=== PATIENT | male | born 1940 | race Caucasian/White ===

== ENCOUNTER 2017-01-10 12:11 | Inpatient (IN) | payer OTHER, MEDICAID ==
[2017-01-10 12:11] VITALS: BMI 25.8
[2017-01-10] MEDS ORDERED: Digoxin 500 mcg/2ml (0.5 mg/2ml) Inj IVP STA (12:46)
[2017-01-10] MEDS ORDERED: Digoxin 500 mcg/2ml (0.5 mg/2ml) Inj ONE (13:05)
[2017-01-10 13:08] VITALS: PULSE 110
[2017-01-10 13:17] LABS: BASO # 0.1 K/uL (0.0-0.2); BASO % 0.6 % (0.0-2.0); EOS # 0.1 K/uL (0.0-0.7); EOS % 1.3 % (0.0-4.0); HEMATOCRIT 33.8 % (35.0-51.0); LYMPH # 1.4 K/uL (1.0-4.3); LYMPH % 15.4 % (20.0-40.0); MEAN CELL VOLUME 89.4 fL (80.0-94.0); MEAN CORPUSCULAR HEMOGLOBIN 29.4 pg (27.0-31.0); MEAN CORPUSCULAR HGB CONC 32.9 g/dL (33.0-37.0); MEAN PLATELET VOLUME 8.5 fL (7.2-11.7); MONO # 0.9 K/uL (0.0-0.8); MONO % 9.4 % (0.0-10.0); RED CELL DISTRIBUTION WIDTH 18.2 % (11.5-14.5); WHITE BLOOD COUNT 9.4 K/uL (4.8-10.8)
--- NOTE | 2017-01-10 13:20 | RAD ---
PROCEDURE: CHEST RADIOGRAPH, 1 VIEW HISTORY: weakness COMPARISON: 03/20/2016. FINDINGS: LUNGS: The lungs are well inflated and clear. PLEURA: No pneumothorax or pleural fluid seen. CARDIOVASCULAR: There is borderline cardiomegaly. Status post CABG. OSSEOUS STRUCTURES: No significant abnormalities. VISUALIZED UPPER ABDOMEN: Normal. OTHER FINDINGS: None. IMPRESSION: No active pulmonary disease.
[2017-01-10 13:37] LABS: ALKALINE PHOSPHATASE 41 U/L (38-126); ALT/SGPT 23 U/L (21-72); AST/SGOT 25 U/L (17-59); BILIRUBIN,TOTAL 0.9 mg/dL (0.2-1.3); BLOOD UREA NITROGEN 19 mg/dL (9-20); CALCIUM 8.9 mg/dl (8.6-10.4); CARBON DIOXIDE 29 mmol/L (22-30); CHLORIDE 96 mmol/L (98-107); GFR AFRICAN-AMERICAN 27; GLUCOSE,RANDOM 55 mg/dL (75-110); POTASSIUM 3.6 mmol/L (3.6-5.2); SODIUM 140 mmol/L (132-148); TOTAL PROTEIN 7.3 g/dL (6.3-8.3)
--- NOTE | 2017-01-10 14:06 | C.PDOC ---
History Of Present Illness 76 year old male sent to ED from Dr. Wise's office for evaluation of lightheadedness, and low blood pressure after hemodialysis today. Pt also complaints of rectal bleeding and hematuria for the past 1 month after his dialysis sessions. Pt states that he was not given Heparin in his last 2 dialysis sessions (friday & ) and states he did not notice any bleeding today. Otherwise, he denies chest pain, shortness of breath, abdominal pain, vomiting, diarrhea, or fever. Patient has history of Afib, and currently takes Aspirin 81mg daily. Patient was taken off Coumadin due to bleeding. PMHX- prostate CA, A fib, ESRD on HD, HTN, hyperlipidemia, DM, COPD, CHF Time Seen by Provider: 01/10/17 12:20 Chief Complaint (Nursing): Dizziness/Lightheaded History Per: Patient History/Exam Limitations: no limitations Current Symptoms Are (Timing): Still Present Associated Symptoms Preceding Syncopal Episode: Lightheadedness Fall Associated With With Symptoms: No Additional History Per: Patient Past Medical History Reviewed: Historical Data, Nursing Documentation, Vital Signs Vital Signs: Last Vital Signs Temp 98.6 F 01/11/17 23:35 Pulse 83 01/11/17 23:35 Resp 20 01/11/17 23:35 BP 135/50 L 01/11/17 23:35 Pulse Ox 97 01/11/17 23:35 - Medical History PMH: Anemia, Asthma, Atrial Fibrillation, Cardia Arrhythmia, CHF, COPD, Diabetes , HTN, Hypercholesterolemia, Malignancy (Prostate), End Stage Renal Disease, Chronic Kidney Disease Surgical History: CABG (QUADRUPLE BYPASS in 2006 at [facility] - [facility] Procedures BYPASS LEFT BRACHIAL ARTERY TO UPPER ARM VEIN, OPEN APPROACH (06/09/15) INSERTION OF INFUSION DEV INTO SUP VENA CAVA, PERC APPROACH (06/09/15) PERFORMANCE OF URINARY FILTRATION, MULTIPLE (01/23/16) PERFORMANCE OF URINARY FILTRATION, SINGLE (08/15/15) ULTRASONOGRAPHY OF HEART WITH AORTA, TRANSESOPHAGEAL (01/23/16) Family History: States: No Known Family Hx - Social History Hx Tobacco Use: No Hx Alcohol Use: No Hx Substance Use: No - Immunization History Hx Tetanus Toxoid Vaccination: No Hx Influenza Vaccination: Yes (2015) Hx Pneumococcal Vaccination: No Review Of Systems Except As Marked, All Systems Reviewed And Found Negative. Constitutional: Negative for: Fever, Chills Cardiovascular: Positive for: Light Headedness. Negative for: Chest Pain, Palpitations Respiratory: Negative for: Shortness of Breath Gastrointestinal: Positive for: Hematochezia. Negative for: Nausea, Vomiting, Abdominal Pain, Diarrhea, Constipation, Melena Genitourinary: Positive for: Hematuria. Negative for: Dysuria Musculoskeletal: Negative for: Back Pain Physical Exam - Physical Exam Appears: Well, Non-toxic, No Acute Distress Skin: Normal Color, Warm, Dry, No Rash Head: Normacephalic Eye(s): bilateral: Normal Inspection Oral Mucosa: Moist Cardiovascular: Rhythm Irregular (irregularly irregular, tachycardic) Respiratory: Normal Breath Sounds, No Rales, No Rhonchi, No Wheezing Gastrointestinal/Abdominal: Normal Exam, Bowel Sounds, Soft, No Tenderness Rectal: Rectal Tone (normal), Heme Positive (blood tinged stool), No Hemorrhoids , No Mass, No Tenderness, No Other (no fissure) Back: Normal Inspection, No CVA Tenderness Extremity: Normal ROM, No Tenderness, Capillary Refill (<2 sec all digits ), No Swelling, Other (AV fistula to left upper extremity with palpable thrill) Neurological/Psych: Oriented x3 ED Course And Treatment - Laboratory Results Result Diagrams: 01/11/17 16:50 01/11/17 07:16 ECG: Interpreted By Me, Viewed By Me ECG Rhythm: Atrial Fibrillation ECG Interpretation: Abnormal Interpretation Of ECG: Afib with RVR at 126bpm. Left axis deviation. No acute ST wave changes. Rate From EC (bpm) O2 Sat by Pulse Oximetry: 98 (on RA) Pulse Ox Interpretation: Normal - Radiology CXR: Interpreted by Me, Viewed By Me CXR Interpretation: Yes: No Acute Disease, Other (no effusion). No: Infiltrates Progress Note: Blood work, UA, CXR, EKG ordered and reviewed. Pt was given IV digoxin for A fib with RVR (BP borderline low). Reevaluation Time: 13:40 Reassessment Condition: Improved (Patient resting comfortably, in no current pain/distress, heart rate improved 90-110s.) - Physician Consult Information Physician Contacted: Karissa Alvarez Outcome Of Conversation: Discussed patient with Dr. Alvarez , agrees with admission but is currently away - being covered by Dr. Frye. Dr. Frye also away today, covered by Dr. Stewart. Dr. Stewart accepts patient to his service. Consults for patient's behavioral sciences department chair Dr. Potts and industrial technology education teacher Dr. Wise entered. Disposition - Disposition Disposition: HOSPITALIZED Disposition Time: 14:20 Condition: STABLE - Clinical Impression Clinical Impression: Atrial fibrillation with RVR, Rectal bleeding, Hypotension, ESRD (end stage renal disease) on dialysis - Scribe Statement The provider has reviewed the documentation as recorded by the Neetaibkade Callahan All medical record entries made by the Neetaibe were at my direction and personally dictated by me. I have reviewed the chart and agree that the record accurately reflects my personal performance of the history, physical exam, medical decision making, and the department course for this patient. I have also personally directed, reviewed, and agree with the discharge instructions and disposition. Decision To Admit - Pt Status Changed To: Hospital Disposition Of: Inpatient - Admit Certification Admit to Inpatient:: After my assessment, the patient will require hospitalization for at least two midnights. This is because of the severity of symptoms shown, intensity of services needed, and/or the medical risk in this patient being treated as an outpatient. - InPatient: Physician Admission Certification: I certify that this patient requires 2 or more midnights of care for the following reason:: see notes - . Bed Request Type: Telemetry Admitting Physician: Darwin Stewart Patient Diagnosis: ESRD (end stage renal disease) on dialysis, Rectal bleeding, Atrial fibrillation with RVR, Hypotension
--- NOTE | 2017-01-10 14:55 | CP.PCM.CON ---
History of Present Illness - History of Present Illness History of Present Illness: PMH: Anemia, Asthma, Atrial Fibrillation, Cardiac Arrhythmia- AFib, CHF, COPD, Diabetes, HTN, Hypercholesterolemia, Malignancy (Prostate), End Stage Renal Disease, on dialysis 2-years Denies: Kidney Stones, Peripheral Edema Surgical History: CABG (QUADRUPLE BYPASS in 2006 at [facility] AV fistula Seen in office today; SBP was 80/palp, patient was dizzy, and had rectal bleeding at dialysis earlier- sent to ED s/p dialysis this AM Review of Systems - Constitutional Constitutional: Fatigue, Weakness - EENT Eyes: Blurred Vision Ears: absent: As Per HPI, Decreased Hearing, Ear Discharge, Ear Pain, Tinnitus, Abnormal Hearing, Disequilibrium, Dizziness, Other Nose/Mouth/Throat: absent: As Per HPI, Epistaxis, Nasal Congestion, Nasal Discharge, Nasal Obstruction, Nasal Trauma, Nose Pain, Post Nasal Drip, Sinus Pain, Sinus Pressure, Bleeding Gums, Change in Voice, Dental Pain, Dry Mouth, Dysphagia, Halitosis, Hoarsness, Lip Swelling, Mouth Lesions, Mouth Pain, Odynophagia, Sore Throat, Throat Swelling, Tongue Swelling, Facial Pain, Neck Pain, Neck Mass, Other - Cardiovascular Cardiovascular: Lightheadedness, Rapid Heart Rate - Respiratory Respiratory: Dyspnea on Exertion - Gastrointestinal Gastrointestinal: Hematochezia - Genitourinary Genitourinary: Hematuria - Musculoskeletal Musculoskeletal: Arthralgias, Muscle Weakness - Integumentary Integumentary: absent: As Per HPI, Acne, Alopecia, Bleeding Lesions, Change in Hair, Change in Nails, Change in Pigmentation, Changing Lesions, Dry Skin, Erythema, Furuncle, Hirsutism, Lesions, New Lesions, Non-Healing Lesions, Photosensitivity, Pruritus, Rash, Skin Pain, Skin Ulcer, Sores, Striae, Swelling , Unusual Bruising, Wounds, Jaundice, Other - Neurological Neurological: Dizziness, Weakness - Hematologic/Lymphatic Hematologic: Easy Bleeding Past Patient History - Past Medical History & Family History Past Medical History?: Yes Past Family History: Reviewed and not pertinent - Past Social History Smoking Status: Former Smoker Chewing Tobacco Use: No Cigar Use: No Alcohol: None Drugs: Denies Home Situation {Lives}: With Family - CARDIAC Hx Atrial Fibrillation: Yes Hx Cardia Arrhythmia: Yes Hx Congestive Heart Failure: Yes Hx Hypercholesterolemia: Yes Hx Hypertension: Yes Hx Peripheral Edema: No - PULMONARY Hx Asthma: Yes Hx Chronic Obstructive Pulmonary Disease (COPD): Yes - NEUROLOGICAL Hx Neurological Disorder: Yes Hx Dizziness: Yes - HEENT Hx HEENT Problems: Yes Hx Cataracts: Yes (both eyes) - RENAL Hx Chronic Kidney Disease: Yes Hx Kidney Stones: No - ENDOCRINE/METABOLIC Hx Endocrine Disorders: Yes Hx Diabetes Mellitus Type 1: Yes - HEMATOLOGICAL/ONCOLOGICAL Hx Anemia: Yes - INTEGUMENTARY Hx Dermatological Problems: No - MUSCULOSKELETAL/RHEUMATOLOGICAL Hx Musculoskeletal Disorders: Yes Hx Falls: Yes - GASTROINTESTINAL Hx Gastrointestinal Disorders: No - GENITOURINARY/GYNECOLOGICAL Hx Genitourinary Disorders: Yes Hx Prostate Cancer: Yes Hx Prostate Problems: Yes Other/Comment: Prostate Sx 10 years ago robotic surgey 2005 - PSYCHIATRIC Hx Substance Use: No - SURGICAL HISTORY Hx Surgeries: Yes Hx Arteriovenous Shunt: Yes Hx Coronary Artery Bypass Graft: Yes (QUADRUPLE BYPASS in 2005 at [facility].) - ANESTHESIA Hx Anesthesia: Yes Hx Anesthesia Reactions: No Hx Malignant Hyperthermia: No Meds Allergies/Adverse Reactions: Allergies Allergy/AdvReac Type Severity Reaction Status Date / Time warfarin sodium Allergy Intermediate RASH Verified 01/10/17 12:17 [From Coumadin] Physical Exam - Constitutional Appears: Non-toxic, No Acute Distress, Chronically Ill - Head Exam Head Exam: ATRAUMATIC, NORMAL INSPECTION - Eye Exam Eye Exam: EOMI, Normal appearance - Neck Exam Neck exam: Positive for: Normal Inspection. Negative for: Tenderness - Respiratory Exam Respiratory Exam: Clear to Auscultation Bilateral, NORMAL BREATHING PATTERN - Cardiovascular Exam Cardiovascular Exam: Tachycardia, Irregular Rhythm, +S1 - GI/Abdominal Exam GI & Abdominal Exam: Soft. absent: Tenderness - Neurological Exam Neurological exam: Alert, CN II-XII Intact, Oriented x3 - Skin Skin Exam: Dry, Warm Results - Vital Signs Recent Vital Signs: Last Vital Signs Temp 97.9 F 01/10/17 12:17 Pulse 106 H 01/10/17 13:39 Resp 20 01/10/17 13:39 BP 119/64 01/10/17 13:39 Pulse Ox 98 01/10/17 14:24 - Labs Result Diagrams: 01/10/17 13:06 01/10/17 13:06 Labs: Laboratory Results - last 24 hr 01/10/17 01/10/17 01/10/17 12:27 13:06 13:06 WBC 9.4 RBC 3.78 L Hgb 11.1 L Hct 33.8 L MCV 89.4 MCH 29.4 MCHC 32.9 L RDW 18.2 H Plt Count 213 MPV 8.5 Neut % (Auto) 73.3 Lymph % (Auto) 15.4 L Kenton % (Auto) 9.4 Eos % (Auto) 1.3 Baso % (Auto) 0.6 Neut # 6.9 Lymph # 1.4 Kenton # 0.9 H Eos # 0.1 Baso # 0.1 PT 11.6 INR 1.0 APTT 31 Sodium Potassium Chloride Carbon Dioxide Anion Gap BUN Creatinine Est GFR ( Amer) Est GFR (Non-Af Amer) POC Glucose (mg/dL) 92 Random Glucose Calcium Total Bilirubin AST ALT Alkaline Phosphatase Total Creatine Kinase CK-MB (Mass) Troponin I Total Protein Albumin Globulin Albumin/Globulin Ratio Stool Occult Blood Blood Type Antibody Screen 01/10/17 01/10/17 01/10/17 13:06 13:06 13:06 WBC RBC Hgb Hct MCV MCH MCHC RDW Plt Count MPV Neut % (Auto) Lymph % (Auto) Kenton % (Auto) Eos % (Auto) Baso % (Auto) Neut # Lymph # Kenton # Eos # Baso # PT INR APTT Sodium 140 Potassium 3.6 Chloride 96 L Carbon Dioxide 29 Anion Gap 19 BUN 19 Creatinine 2.8 H Est GFR ( Amer) 27 Est GFR (Non-Af Amer) 22 POC Glucose (mg/dL) Random Glucose 55 L Calcium 8.9 Total Bilirubin 0.9 AST 25 ALT 23 Alkaline Phosphatase 41 Total Creatine Kinase 52 L CK-MB (Mass) 0.34 Troponin I < 0.0120 Total Protein 7.3 Albumin 3.7 Globulin 3.6 Albumin/Globulin Ratio 1.0 Stool Occult Blood Positive H Blood Type A POSITIVE Antibody Screen Negative Assessment & Plan (1) Rectal bleeding Status: Acute (2) Atrial fibrillation Status: Acute (3) End stage renal disease Status: Acute (4) Hematuria, gross Status: Acute (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
--- NOTE | 2017-01-10 15:56 | CP.PCM.PN ---
Subjective - Date & Time of Evaluation Date of Evaluation: 01/10/17 Time of Evaluation: 16:00 - Subjective Subjective: PROFESSOR/NURSE ANESTHETIST NOTES Pt seen in ED , awake alert, ox3, states had HD and went to Dr. shah office for f/u and bp low and felt dizzy and Dr. Shah sent ED for evaluation denies any chest pain, sob , abdominal pain Objective - Vital Signs/Intake and Output Vital Signs (last 24 hours): Temp Pulse Resp BP Pulse Ox 97.9 F 118 H 15 134/52 L 98 01/10/17 12:17 01/10/17 15:30 01/10/17 15:30 01/10/17 15:30 01/10/17 15:35 - Medications Medications: Current Medications Diltiazem HCl (Cardizem) 5 mg IVP ONCE ONE Stop: 01/10/17 16:01 Ferrous Sulfate (Feosol) 325 mg PO TID [facility] Glipizide (Glucotrol) 5 mg PO ACB [facility] Diltiazem HCl 125 mg/ Dextrose 125 mls @ 5 mls/hr IV .Q24H [facility]INA; 5 MG/HR PRN Reason: Protocol Insulin Aspart (Novolog) 0 unit SC ACHS [facility] PRN Reason: Protocol Metoprolol Succinate (Toprol Xl) 25 mg PO DAILY [facility] Rosuvastatin Calcium (Crestor) 5 mg PO HS CORINA - Labs Labs: PT 11.6 SECONDS (9.7-12.2) 01/10/17 13:06 INR 1.0 01/10/17 13:06 APTT 31 SECONDS (21-34) 01/10/17 13:06 - Constitutional Appears: Well, No Acute Distress - Head Exam Head Exam: ATRAUMATIC, NORMAL INSPECTION, NORMOCEPHALIC - Eye Exam Pupil Exam: NORMAL ACCOMODATION, PERRL - ENT Exam ENT Exam: Mucous Membranes Moist - Neck Exam Neck Exam: Full ROM, Normal Inspection - Respiratory Exam Respiratory Exam: Clear to Ausculation Bilateral, NORMAL BREATHING PATTERN - Cardiovascular Exam Cardiovascular Exam: Diastolic murmur (a fib on monitor non sustained ), Irregular Rhythm, +S1, +S2 Assessment and Plan (1) Atrial fibrillation Status: Acute - Assessment and Plan (Free Text) Assessment: A/P 76 yr old male with PMHX Anemia, Asthma, Atrial Fibrillation, Cardia Arrhythmia, CHF, COPD, Diabetes, HTN, Hypercholesterolemia, Malignancy (Prostate ), End Stage Renal Disease, on HD was sent from Dr. Shah office for evaluation of lightheadedness, and low blood pressure after hemodialysis today. Pt on afib with RVR and received digoxin x1 in ED on monitor a fib hr non sustained - 110- 140 Dr. Potts on cardiology consult , will give cardizem 5 mg ivx1 and start cardizem drip at 5 ml/hr with parameters Pt has hx of bleed in the past and today episode of rectal bleeding at HD center and occult blood positive , will hold off anticoagulation for now , further recommendation from Dr. Potts for anticoagulation RN will follow up with for further management of afib and anticoagulation
[2017-01-10] MEDS: (Novolog) Insulin Aspart, Recombinant 100 u/ml 10 ml vial SC SCH ×2 (17:09→21:36)
[2017-01-10 21:15] VITALS: RESP 20
[2017-01-10] MEDS ORDERED: Dextrose 50% SYRINGE Inj (50 ml) ONE (22:01)
[2017-01-10] MEDS ORDERED: Dextrose 50% SYRINGE Inj (50 ml) IV STA ×2 (22:35→22:41)
--- NOTE | 2017-01-10 23:10 | CP.PCM.CON ---
History of Present Illness - History of Present Illness History of Present Illness: 75 yo male with PMH of IDDM2, CAD s/p CABG, ESRD on hemodialysis was brought to ED after becoming dizzy at the end of HD. Patient denies any LOC, chest pain, or shortness of breath. Paient has rectal bleeding. In the ED pt was found to be in Rapid A. fib. He was started on IV Cardizem drip PMH- IDDM2, CAD s/p CABG, ESRD on hemodialysis M/W/F, a. fib HTN, hypercholesterolemia, COPD, anemia, hx of prostate cancer surgery- CABG fistula prostate surgery allergy coumadin social hx- former smoker, quit 12 yo, 1 ppd denies alcohol use, denies illicit drug use Review of Systems - Constitutional Constitutional: absent: Chills, Fever, Headache - Cardiovascular Cardiovascular: absent: Chest Pain, Diaphoresis, Leg Edema, Palpitations - Respiratory Respiratory: absent: Cough, Dyspnea, Wheezing - Gastrointestinal Gastrointestinal: absent: Abdominal Pain, Diarrhea, Nausea, Vomiting - Genitourinary Additional comments: decrease urine output 2/2 ESRD - Neurological Neurological: absent: Abnormal Gait, Dizziness, Headaches - Hematologic/Lymphatic Hematologic: absent: Easy Bleeding, Easy Bruising Physical Exam - Constitutional Appears: Well, No Acute Distress - Head Exam Head Exam: ATRAUMATIC, NORMOCEPHALIC - Eye Exam Eye Exam: Normal appearance - ENT Exam ENT Exam: Mucous Membranes Moist - Respiratory Exam Respiratory Exam: Clear to Auscultation Bilateral, NORMAL BREATHING PATTERN. absent: Rhonchi, Wheezes - Cardiovascular Exam Cardiovascular Exam: IREGULAR RHYTHM, +S1, +S2 - GI/Abdominal Exam GI & Abdominal Exam: Normal Bowel Sounds, Soft. absent: Distended, Tenderness - Extremities Exam Extremities exam: Negative for: pedal edema Additional comments: fistula right arm - Neurological Exam Neurological exam: Alert, Oriented x3 - Skin Skin Exam: Dry, Normal Color, Warm Past Patient History - Past Medical History & Family History Past Medical History?: Yes - Past Social History Smoking Status: Never Smoked - CARDIAC Hx Atrial Fibrillation: Yes Hx Cardia Arrhythmia: Yes Hx Congestive Heart Failure: Yes Hx Hypercholesterolemia: Yes Hx Hypertension: Yes - PULMONARY Hx Asthma: Yes Hx Chronic Obstructive Pulmonary Disease (COPD): Yes - NEUROLOGICAL Hx Neurological Disorder: Yes Hx Dizziness: Yes - HEENT Hx HEENT Problems: Yes Hx Cataracts: Yes (both eyes) - RENAL Hx Chronic Kidney Disease: Yes - ENDOCRINE/METABOLIC Hx Endocrine Disorders: Yes Hx Diabetes Mellitus Type 1: Yes - HEMATOLOGICAL/ONCOLOGICAL Hx Anemia: Yes - INTEGUMENTARY Hx Dermatological Problems: No - MUSCULOSKELETAL/RHEUMATOLOGICAL Hx Musculoskeletal Disorders: Yes Hx Falls: Yes - GASTROINTESTINAL Hx Gastrointestinal Disorders: No - GENITOURINARY/GYNECOLOGICAL Hx Genitourinary Disorders: Yes Hx Prostate Cancer: Yes Hx Prostate Problems: Yes Other/Comment: Prostate Sx 10 years ago robotic surgey 2005 - PSYCHIATRIC Hx Substance Use: No - SURGICAL HISTORY Hx Coronary Artery Bypass Graft: Yes (QUADRUPLE BYPASS in 2006 at [facility] - ANESTHESIA Hx Anesthesia: Yes Hx Anesthesia Reactions: No Hx Malignant Hyperthermia: No Has any member of the family had a problem w/ anesthesia?: No Meds Allergies/Adverse Reactions: Allergies Allergy/AdvReac Type Severity Reaction Status Date / Time warfarin sodium Allergy Intermediate RASH Verified 01/10/17 12:17 [From Coumadin] - Medications Medications: Current Medications Ferrous Sulfate (Feosol) 325 mg PO TID [facility] Last Admin: 01/10/17 19:35 Dose: 325 mg Diltiazem HCl 125 mg/ Dextrose 125 mls @ 5 mls/hr IV .Q24H CORINA; 5 MG/HR PRN Reason: Protocol Last Admin: 01/10/17 16:10 Dose: 5 mg/hr, 5 mls/hr Insulin Aspart (Novolog) 0 unit SC ACHS [facility] PRN Reason: Protocol Last Admin: 01/10/17 21:36 Dose: Not Given Metoprolol Succinate (Toprol Xl) 25 mg PO DAILY [facility] Pantoprazole Sodium (Protonix Inj) 40 mg IVP DAILY [facility] Rosuvastatin Calcium (Crestor) 5 mg PO HS [facility] Last Admin: 01/10/17 22:04 Dose: 5 mg Results - Vital Signs Recent Vital Signs: Last Vital Signs Temp 98.4 F 01/10/17 18:30 Pulse 87 01/10/17 18:30 Resp 20 01/10/17 18:30 BP 152/55 H 01/10/17 18:30 Pulse Ox 97 01/10/17 18:30 - Labs Result Diagrams: 01/10/17 13:06 01/10/17 13:06 Labs: Laboratory Results - last 24 hr 01/10/17 01/10/17 01/10/17 16:22 16:55 21:30 POC Glucose (mg/dL) 42 L 105 62 L 01/10/17 21:56 POC Glucose (mg/dL) 63 L Assessment & Plan - Assessment and Plan (Free Text) Assessment: 1. A Fib on Cardizem drip 2. Anemia. Rectal bleeding 3. .ESRD - hemodialysis M/W/F 4. DM - cont glipizide, insulin 5. hypercholesterolemia - cont rosuvastatin
[2017-01-11 07:27] LABS: BASO % 0.5 % (0.0-2.0); EOS # 0.1 K/uL (0.0-0.7); EOS % 1.6 % (0.0-4.0); HEMATOCRIT 30.2 % (35.0-51.0); LYMPH # 1.5 K/uL (1.0-4.3); LYMPH % 16.4 % (20.0-40.0); MEAN CELL VOLUME 89.5 fL (80.0-94.0); MEAN CORPUSCULAR HEMOGLOBIN 29.1 pg (27.0-31.0); MEAN CORPUSCULAR HGB CONC 32.5 g/dL (33.0-37.0); MEAN PLATELET VOLUME 8.8 fL (7.2-11.7); MONO # 1.1 K/uL (0.0-0.8); MONO % 11.7 % (0.0-10.0); RED CELL DISTRIBUTION WIDTH 17.9 % (11.5-14.5); WHITE BLOOD COUNT 9.2 K/uL (4.8-10.8)
[2017-01-11 07:53] LABS: ALB/GLOB RATIO 1.2 (1.0-2.1); BILIRUBIN,TOTAL 0.8 mg/dL (0.2-1.3); CALCIUM 7.6 mg/dl (8.6-10.4); POTASSIUM 3.6 mmol/L (3.6-5.2); TOTAL PROTEIN 5.7 g/dL (6.3-8.3)
[2017-01-11] MEDS: (Novolog) Insulin Aspart, Recombinant 100 u/ml 10 ml vial SC SCH ×4 (08:10→21:49)
--- NOTE | 2017-01-11 09:25 | CP.PCM.PN ---
Subjective - Date & Time of Evaluation Date of Evaluation: 01/11/17 Time of Evaluation: 09:30 - Subjective Subjective: hb down to 9.8 bp stable afebrile awake alert comfortable no dizziness now ROS No headache dizziness,chills fever no chest pain sob cough hemoptysis no abd pain nausea vomiting diarrhea.no bm no dysuria Objective - Vital Signs/Intake and Output Vital Signs (last 24 hours): Temp Pulse Resp BP Pulse Ox 97.9 F 71 20 136/53 L 100 01/11/17 08:13 01/11/17 08:13 01/11/17 08:13 01/11/17 08:13 01/11/17 08:13 - Medications Medications: Current Medications Ferrous Sulfate (Feosol) 325 mg PO TID [facility] Last Admin: 01/10/17 19:35 Dose: 325 mg Diltiazem HCl 125 mg/ Dextrose 125 mls @ 5 mls/hr IV .Q24H CORINA; 5 MG/HR PRN Reason: Protocol Insulin Aspart (Novolog) 0 unit SC ACHS [facility] PRN Reason: Protocol Last Admin: 01/11/17 08:10 Dose: Not Given Metoprolol Succinate (Toprol Xl) 25 mg PO DAILY [facility] Pantoprazole Sodium (Protonix Inj) 40 mg IVP DAILY [facility] Rosuvastatin Calcium (Crestor) 5 mg PO HS [facility] Last Admin: 01/10/17 22:04 Dose: 5 mg - Labs Labs: 01/11/17 07:16 01/11/17 07:16 PT 11.6 SECONDS (9.7-12.2) 01/10/17 13:06 INR 1.0 01/10/17 13:06 APTT 31 SECONDS (21-34) 01/10/17 13:06 - Constitutional Appears: No Acute Distress - Eye Exam Eye Exam: Normal appearance - ENT Exam ENT Exam: Mucous Membranes Moist - Respiratory Exam Respiratory Exam: Clear to Ausculation Bilateral - Cardiovascular Exam Cardiovascular Exam: REGULAR RHYTHM. absent: JVD - GI/Abdominal Exam GI & Abdominal Exam: Soft. absent: Distended, Tenderness - Extremities Exam Extremities Exam: absent: Calf Tenderness - Neurological Exam Neurological Exam: Alert - Psychiatric Exam Psychiatric exam: Normal Affect - Skin Skin Exam: Dry Assessment and Plan (1) Rectal bleeding Status: Acute (2) CHF (congestive heart failure) Status: Acute (3) ESRD (end stage renal disease) on dialysis Status: Acute (4) HTN (hypertension) Status: Chronic (5) Prostate CA Status: Chronic - Assessment and Plan (Free Text) Plan: await further evaluation next dialysis 01/13
[2017-01-11] MEDS ORDERED: Metoprolol Succinate 25 mg XL Tab PO SCH (10:00)
[2017-01-11] MEDS: Metoprolol Succinate 25 mg XL Tab PO SCH (10:03)
[2017-01-11 16:56] LABS: HEMATOCRIT 29.3 % (35.0-51.0); MEAN CELL VOLUME 89.7 fL (80.0-94.0); MEAN CORPUSCULAR HEMOGLOBIN 29.7 pg (27.0-31.0); MEAN CORPUSCULAR HGB CONC 33.1 g/dL (33.0-37.0); MEAN PLATELET VOLUME 8.8 fL (7.2-11.7); RED CELL DISTRIBUTION WIDTH 17.9 % (11.5-14.5); WHITE BLOOD COUNT 8.2 K/uL (4.8-10.8)
--- NOTE | 2017-01-11 21:44 | CP.PCM.PN ---
Subjective - Date & Time of Evaluation Date of Evaluation: 01/11/17 Time of Evaluation: 13:10 - Subjective Subjective: Patient seen and evaluated Denies chest pain and dyspnea No rectal bleeding this morning Objective - Vital Signs/Intake and Output Vital Signs (last 24 hours): Temp Pulse Resp BP Pulse Ox 98.9 F 56 L 20 140/52 L 97 01/11/17 15:00 01/11/17 18:00 01/11/17 15:00 01/11/17 15:00 01/11/17 15:00 - Medications Medications: Current Medications Diltiazem HCl (Cardizem) 30 mg PO Q8 [facility] Last Admin: 01/11/17 14:32 Dose: 30 mg Ferrous Sulfate (Feosol) 325 mg PO TID [facility] Last Admin: 01/11/17 17:20 Dose: 325 mg Insulin Aspart (Novolog) 0 unit SC ACHS [facility] PRN Reason: Protocol Last Admin: 01/11/17 17:20 Dose: 8 unit Metoprolol Succinate (Toprol Xl) 25 mg PO DAILY [facility] Last Admin: 01/11/17 10:03 Dose: 25 mg Pantoprazole Sodium (Protonix Inj) 40 mg IVP DAILY [facility] Last Admin: 01/11/17 10:01 Dose: 40 mg Rosuvastatin Calcium (Crestor) 5 mg PO HS [facility] Last Admin: 01/10/17 22:04 Dose: 5 mg - Labs Labs: 01/11/17 16:50 01/11/17 07:16 PT 11.6 SECONDS (9.7-12.2) 01/10/17 13:06 INR 1.0 01/10/17 13:06 APTT 31 SECONDS (21-34) 01/10/17 13:06 - Head Exam Head Exam: ATRAUMATIC, NORMAL INSPECTION - Eye Exam Eye Exam: EOMI, Normal appearance, PERRL Pupil Exam: NORMAL ACCOMODATION - ENT Exam ENT Exam: Mucous Membranes Moist - Neck Exam Neck Exam: Full ROM, Normal Inspection - Respiratory Exam Respiratory Exam: NORMAL BREATHING PATTERN - Cardiovascular Exam Cardiovascular Exam: Irregular Rhythm, +S1, +S2 - GI/Abdominal Exam GI & Abdominal Exam: Soft, Normal Bowel Sounds - Extremities Exam Extremities Exam: Full ROM - Neurological Exam Neurological Exam: Alert, CN II-XII Intact, Oriented x3 - Psychiatric Exam Psychiatric exam: Normal Mood - Skin Skin Exam: Warm Assessment and Plan - Assessment and Plan (Free Text) Assessment: 1. A Fib HR controlled. Now on Cardizem PO 2. Anemia. Rectal bleeding. GI consult pending 3. .ESRD - hemodialysis M/W/F 4. DM - cont glipizide, insulin 5. hypercholesterolemia - cont rosuvastatin
[2017-01-12 08:51] VITALS: BP 142/51; PULSE 63; TEMP 98.3; O2SAT 96
[2017-01-12] MEDS: (Novolog) Insulin Aspart, Recombinant 100 u/ml 10 ml vial SC SCH ×2 (09:01→13:21)
[2017-01-12] MEDS: Metoprolol Succinate 25 mg XL Tab PO SCH (09:01)
--- NOTE | 2017-01-12 09:22 | CARD ---
APPROVED REPORT EXAM: Two-dimensional and M-mode echocardiogram with Doppler and color Doppler. Other Information Quality : GoodRhythm : NSR INDICATION Dizziness and Vertigo Dyspnea Congestive Heart Failure COPD ESRD; HIGH TROPONIN Surgery/Intervention CABG: Date: 2005 RISK FACTORS Hypertension Diabetes M-Mode DIMENSIONS RVDd1.98 (2.1-3.2cm)Left Atrium (MM)4.35 (2.5-4.0cm) IVSd1.13 (0.7-1.1cm)Aortic Root3.39 (2.2-3.7cm) LVDd5.19 (4.0-5.6cm)Aortic Cusp Exc.1.51 (1.5-2.0cm) PWd1.11 (0.7-1.1cm)FS (%) 39 % LVDs3.16 (2.0-3.8cm)LVEF (%)69 (>50%) Mitral Valve MV E Anixlyjd216.7cm/sMV A Oknnivyc143.6cm/sE/A ratio1.2 TDI E/Lateral E'0.0E/Medial E'0.0 Tricuspid Valve TR Peak [id number]/sTR Peak Gr.[id number] LEFT VENTRICLE The left ventricle is normal size. There is moderate concentric left ventricular hypertrophy. Left ventricle systolic function is normal. The Ejection Fraction is 65-70%. There is normal LV segmental wall motion. No left ventricle thrombus noted on this study. There is no ventricular septal defect visualized. RIGHT VENTRICLE The right ventricle is normal size. The right ventricular systolic function is normal. ATRIA The left atrium is moderately dilated. The right atrium size is normal. The interatrial septum is intact with no evidence for an atrial septal defect. AORTIC VALVE The aortic valve is moderately calcified. No aortic regurgitation is present. There is no aortic valvular stenosis. There is no aortic valvular vegetation. MITRAL VALVE Mitral annular calcification is moderate. There is no mitral valve stenosis. Mitral regurgitation is mild. TRICUSPID VALVE The tricuspid valve is normal in structure. There is mild tricuspid regurgitation. There is no tricuspid valve prolapse or vegetation. There is no tricuspid valve stenosis. PULMONIC VALVE The pulmonary valve is normal in structure. GREAT VESSELS The aortic root is normal in size. <Conclusion> Left ventricle systolic function is normal. The Ejection Fraction is 65-70%. The right ventricular systolic function is normal. The left atrium is moderately dilated. The aortic valve is moderately calcified. Mitral annular calcification is moderate. Mitral regurgitation is mild. There is mild tricuspid regurgitation.
--- NOTE | 2017-01-12 09:26 | CARD ---
APPROVED REPORT EKG Measurement Heart [id number] <Conclusion> Atrial fibrillation with rapid ventricular response Nonspecific ST abnormality Abnormal ECG
--- NOTE | 2017-01-12 11:56 | CP.PCM.HP ---
History of Present Illness - History of Present Illness History of Present Illness: 76 y/o cymraes BRANDY WITH ESRD, DM, THN AND HE WAS IN DIALYSIS ON THE DAY OF ADMISSION AND HE WAS FOUND TO BE WEAK AND LETHARGIC AND HE WAS SENT TO ER, AND HE HAS GI BLEED, RAPID A.FIB, NO CHEST PAIN, OCC DYSPNEA, NO FEVER, NO COUGH Present on Admission - Present on Admission Any Indicators Present on Admission: Yes History of DVT/PE: No History of Uncontrolled Diabetes: Yes Urinary Catheter: No Decubitus Ulcer Present: No Review of Systems - Review of Systems Systems not reviewed;Unavailable: Unstable Vital Signs - Constitutional Constitutional: Anorexia, Chills - Cardiovascular Cardiovascular: Dyspnea, Palpitations, Pedal Edema, Rapid Heart Rate - Respiratory Respiratory: Dyspnea - Genitourinary Genitourinary: Urinary Frequency - Neurological Neurological: Weakness Past Patient History - Past Medical History & Family History Past Medical History?: Yes - Past Social History Smoking Status: Never Smoked - CARDIAC Hx Atrial Fibrillation: Yes Hx Cardia Arrhythmia: Yes Hx Congestive Heart Failure: Yes Hx Hypercholesterolemia: Yes Hx Hypertension: Yes - PULMONARY Hx Asthma: Yes Hx Chronic Obstructive Pulmonary Disease (COPD): Yes - NEUROLOGICAL Hx Neurological Disorder: Yes Hx Dizziness: Yes - HEENT Hx HEENT Problems: Yes Hx Cataracts: Yes (both eyes) - RENAL Hx Chronic Kidney Disease: Yes - ENDOCRINE/METABOLIC Hx Endocrine Disorders: Yes Hx Diabetes Mellitus Type 1: Yes - HEMATOLOGICAL/ONCOLOGICAL Hx Anemia: Yes - INTEGUMENTARY Hx Dermatological Problems: No - MUSCULOSKELETAL/RHEUMATOLOGICAL Hx Musculoskeletal Disorders: Yes Hx Falls: Yes - GASTROINTESTINAL Hx Gastrointestinal Disorders: No - GENITOURINARY/GYNECOLOGICAL Hx Genitourinary Disorders: Yes Hx Prostate Cancer: Yes Hx Prostate Problems: Yes Other/Comment: Prostate Sx 10 years ago robotic surgey 2006 - PSYCHIATRIC Hx Substance Use: No - SURGICAL HISTORY Hx Coronary Artery Bypass Graft: Yes (QUADRUPLE BYPASS in 2006 at [facility].) - ANESTHESIA Hx Anesthesia: Yes Hx Anesthesia Reactions: No Hx Malignant Hyperthermia: No Has any member of the family had a problem w/ anesthesia?: No Meds Allergies/Adverse Reactions: Allergies Allergy/AdvReac Type Severity Reaction Status Date / Time warfarin sodium Allergy Intermediate RASH Verified 01/10/17 12:17 [From Coumadin] Physical Exam - Constitutional Appears: No Acute Distress - Head Exam Head Exam: ATRAUMATIC, NORMAL INSPECTION, NORMOCEPHALIC - Eye Exam Eye Exam: EOMI, Normal appearance, PERRL Pupil Exam: NORMAL ACCOMODATION - ENT Exam ENT Exam: Mucous Membranes Moist, Normal Exam, Normal Oropharynx, TM's Normal Bilaterally - Neck Exam Neck exam: Positive for: Normal Inspection - Respiratory Exam Respiratory Exam: Clear to Auscultation Bilateral, Rales, NORMAL BREATHING PATTERN - Cardiovascular Exam Cardiovascular Exam: Gallop, +S1, +S2 - GI/Abdominal Exam GI & Abdominal Exam: Hyperactive Bowel Sounds, Soft - Back Exam Back exam: FULL ROM - Neurological Exam Neurological exam: Alert, CN II-XII Intact, Normal Gait, Oriented x3, Reflexes Normal - Psychiatric Exam Psychiatric exam: Flat Affect Results - Vital Signs Recent Vital Signs: Last Vital Signs Temp 98.3 F 01/12/17 08:50 Pulse 63 01/12/17 08:50 Resp 20 01/12/17 08:50 BP 142/51 L 01/12/17 08:50 Pulse Ox 96 01/12/17 08:50 - Labs Result Diagrams: 01/11/17 16:50 01/11/17 07:16 Labs: Laboratory Results - last 24 hr 01/11/17 01/11/17 01/11/17 11:54 16:35 16:50 WBC 8.2 RBC 3.27 L Hgb 9.7 L Hct 29.3 L MCV 89.7 MCH 29.7 MCHC 33.1 RDW 17.9 H Plt Count 182 MPV 8.8 POC Glucose (mg/dL) 359 H 360 H 01/11/17 01/12/17 01/12/17 21:15 02:03 06:19 WBC RBC Hgb Hct MCV MCH MCHC RDW Plt Count MPV POC Glucose (mg/dL) 313 H 252 H 224 H 01/12/17 11:23 WBC RBC Hgb Hct MCV MCH MCHC RDW Plt Count MPV POC Glucose (mg/dL) 255 H Assessment & Plan (1) Atrial fibrillation with RVR Assessment and Plan: ON CARDIZEM AND IS STABLE Status: Acute Priority: High (2) ESRD (end stage renal disease) on dialysis Status: Chronic Priority: Medium (3) Rectal bleeding Assessment and Plan: R/O DIVERTICULOSIS WITH BLEED Status: Acute Priority: High (4) Diabetes mellitus Status: Chronic Priority: Medium (5) HTN (hypertension) Status: Chronic
--- NOTE | 2017-01-12 12:00 | CP.PCM.CON ---
<Blaire Ramírez - Last Filed: 01/12/17 12:09> History of Present Illness - History of Present Illness History of Present Illness: GI Fellow PGY4 Consult Note This is a 76yM with a pmhx of HTN, ESRD on HD, prostate cancer s/p 36 radiation sessions, Hematuria on OAC, CAD s/p CABG, IDDM, HLD, Atrial Thrombus 01/25, Afib on aspirin. Pt sent from dialysis center after pt was hypotensive SBP in the 80s after 1.5L removed, dizzy and having complaints of rectal bleeding. Pt reports noticing blood on toilet paper for two weeks which has now slowed down with no rectal bleeding today. Pt denies any prior hx of melena or hematochezia and is not on OAC because of hx of hematuria and not GI bleeding. Pt reports EGD /Colonoscopy about 5yrs ago and was normal. Pt reports feeling better today with no abdominal pain, reflux, dizziness or chest pain. Pt has a hx of hematuria with Eliquis in the past as well as Coumadin which was started in 2015 after an atrial thrombus was found but had to be discontinued by 03/2016 because of hematuria. ROS: A 12pt ROS was obtained and was negative except as above PmHx: As stated in HPI PsHx: AVF, CABG, Prostate surgery SHx: denies tobacco, etoh, drugs FHx: denies colon cancer Past Patient History - Past Medical History & Family History Past Medical History?: Yes - Past Social History Smoking Status: Never Smoked - CARDIAC Hx Atrial Fibrillation: Yes Hx Cardia Arrhythmia: Yes Hx Congestive Heart Failure: Yes Hx Hypercholesterolemia: Yes Hx Hypertension: Yes - PULMONARY Hx Asthma: Yes Hx Chronic Obstructive Pulmonary Disease (COPD): Yes - NEUROLOGICAL Hx Neurological Disorder: Yes Hx Dizziness: Yes - HEENT Hx HEENT Problems: Yes Hx Cataracts: Yes (both eyes) - RENAL Hx Chronic Kidney Disease: Yes - ENDOCRINE/METABOLIC Hx Endocrine Disorders: Yes Hx Diabetes Mellitus Type 1: Yes - HEMATOLOGICAL/ONCOLOGICAL Hx Anemia: Yes - INTEGUMENTARY Hx Dermatological Problems: No - MUSCULOSKELETAL/RHEUMATOLOGICAL Hx Musculoskeletal Disorders: Yes Hx Falls: Yes - GASTROINTESTINAL Hx Gastrointestinal Disorders: No - GENITOURINARY/GYNECOLOGICAL Hx Genitourinary Disorders: Yes Hx Prostate Cancer: Yes Hx Prostate Problems: Yes Other/Comment: Prostate Sx 10 years ago robotic surgey 2005 - PSYCHIATRIC Hx Substance Use: No - SURGICAL HISTORY Hx Coronary Artery Bypass Graft: Yes (QUADRUPLE BYPASS in 2006 at [facility].) - ANESTHESIA Hx Anesthesia: Yes Hx Anesthesia Reactions: No Hx Malignant Hyperthermia: No Has any member of the family had a problem w/ anesthesia?: No Meds Allergies/Adverse Reactions: Allergies Allergy/AdvReac Type Severity Reaction Status Date / Time warfarin sodium Allergy Intermediate RASH Verified 01/10/17 12:17 [From Coumadin] - Medications Medications: Current Medications Diltiazem HCl (Cardizem) 30 mg PO Q8 [facility] Last Admin: 01/12/17 06:01 Dose: Not Given Ferrous Sulfate (Feosol) 325 mg PO TID [facility] Last Admin: 01/12/17 09:01 Dose: 325 mg Insulin Aspart (Novolog) 0 unit SC ACHS [facility] PRN Reason: Protocol Last Admin: 01/12/17 09:01 Dose: 3 unit Metoprolol Succinate (Toprol Xl) 25 mg PO DAILY [facility] Last Admin: 01/12/17 09:01 Dose: 25 mg Pantoprazole Sodium (Protonix Inj) 40 mg IVP DAILY [facility] Last Admin: 01/12/17 09:01 Dose: 40 mg Rosuvastatin Calcium (Crestor) 5 mg PO HS [facility] Last Admin: 01/11/17 21:49 Dose: 5 mg Physical Exam - Constitutional Appears: Well, Non-toxic, No Acute Distress - Head Exam Head Exam: NORMAL INSPECTION, NORMOCEPHALIC - Eye Exam Eye Exam: EOMI, Normal appearance, PERRL Pupil Exam: PERRL - ENT Exam ENT Exam: Mucous Membranes Moist - Neck Exam Neck exam: Positive for: Normal Inspection - Respiratory Exam Respiratory Exam: Clear to Auscultation Bilateral, Respiratory Distress - Cardiovascular Exam Cardiovascular Exam: RRR, +S1, +S2 - GI/Abdominal Exam GI & Abdominal Exam: Normal Bowel Sounds, Soft. absent: Distended, Firm, Guarding, Organomegaly, Tenderness - Rectal Exam Rectal Exam: absent: Hemorrhoids Additional comments: small amount of blood tinged brown stool - Extremities Exam Extremities exam: Positive for: full ROM, normal inspection - Back Exam Back exam: NORMAL INSPECTION - Neurological Exam Neurological exam: Alert, Oriented x3 - Psychiatric Exam Psychiatric exam: Normal Affect, Normal Mood - Skin Skin Exam: Dry, Intact, Normal Color, Warm Results - Vital Signs Recent Vital Signs: Last Vital Signs Temp 98.3 F 01/12/17 08:50 Pulse 63 01/12/17 08:50 Resp 20 01/12/17 08:50 BP 142/51 L 01/12/17 08:50 Pulse Ox 96 01/12/17 08:50 - Labs Result Diagrams: 01/11/17 16:50 01/11/17 07:16 Labs: Laboratory Results - last 24 hr 01/11/17 01/11/17 01/11/17 16:35 16:50 21:15 WBC 8.2 RBC 3.27 L Hgb 9.7 L Hct 29.3 L MCV 89.7 MCH 29.7 MCHC 33.1 RDW 17.9 H Plt Count 182 MPV 8.8 POC Glucose (mg/dL) 360 H 313 H 01/12/17 01/12/17 01/12/17 02:03 06:19 11:23 WBC RBC Hgb Hct MCV MCH MCHC RDW Plt Count MPV POC Glucose (mg/dL) 252 H 224 H 255 H Assessment & Plan - Assessment and Plan (Free Text) Assessment: This is a 76yM pw with dizziness, hypotension and complaints of rectal bleeding. 1. Rectal bleeding 2. Anemia 3. Afib with RVR now in NSR 4. Hx of Hematuria on OAC 5. Hx of Atrial thrombus 6. ESRD on HD 7. Hx of Prostate Cancer s/p radiation therapy Plan: -No active GI bleeding at this time, rectal exam with small amount of blood tinged brown stool -Hemoglobin stable at pt's baseline -Continue supportive care and monitor H/H -No prior hx of GI bleeding with OAC, had hematuria with OAC therapy in the past -No plan for emergent endoscopic evaluation at this time -With Hx of Prostate cancer and per pt received 36 radiation sessions, will need colonoscopy and will order CT A/P wo contrast to look for rectosigmoid wall thickening -Will schedule pt for EGD/Colonoscopy as an outpt after cardiac clearance and cystoscopy scheduled for January 28 <Arin Seaman MD - Last Filed: 01/12/17 13:08> Meds - Medications Medications: Current Medications Diltiazem HCl (Cardizem) 30 mg PO Q8 [facility] Last Admin: 01/12/17 06:01 Dose: Not Given Ferrous Sulfate (Feosol) 325 mg PO TID [facility] Last Admin: 01/12/17 09:01 Dose: 325 mg Insulin Aspart (Novolog) 0 unit SC ACHS [facility] PRN Reason: Protocol Last Admin: 01/12/17 09:01 Dose: 3 unit Metoprolol Succinate (Toprol Xl) 25 mg PO DAILY [facility] Last Admin: 01/12/17 09:01 Dose: 25 mg Pantoprazole Sodium (Protonix Inj) 40 mg IVP DAILY [facility] Last Admin: 01/12/17 09:01 Dose: 40 mg Rosuvastatin Calcium (Crestor) 5 mg PO HS [facility] Last Admin: 01/11/17 21:49 Dose: 5 mg Results - Vital Signs Recent Vital Signs: Last Vital Signs Temp 98.3 F 01/12/17 08:50 Pulse 63 01/12/17 08:50 Resp 20 01/12/17 08:50 BP 142/51 L 01/12/17 08:50 Pulse Ox 96 01/12/17 08:50 - Labs Result Diagrams: 01/11/17 16:50 01/11/17 07:16 Labs: Laboratory Results - last 24 hr 01/11/17 01/11/17 01/11/17 16:35 16:50 21:15 WBC 8.2 RBC 3.27 L Hgb 9.7 L Hct 29.3 L MCV 89.7 MCH 29.7 MCHC 33.1 RDW 17.9 H Plt Count 182 MPV 8.8 POC Glucose (mg/dL) 360 H 313 H 01/12/17 01/12/17 01/12/17 02:03 06:19 11:23 WBC RBC Hgb Hct MCV MCH MCHC RDW Plt Count MPV POC Glucose (mg/dL) 252 H 224 H 255 H Attending/Attestation - Attestation I have personally seen and examined this patient.: Yes I have fully participated in the care of the patient.: Yes I have reviewed all pertinent clinical information: Yes Notes (Text): 01/12/17 12:49 Patient seen at bedside with GI fellow on rounds. This is a 76 year old M admitted with dizziness, hypotension and complaints of rectal bleeding during HD. Rectal exam at bedside with slight amount of rectal blood in rectal vault. Denies change in bowel habits. has history of prostate cancer s/p robotic surgery in 2005 with 39 sessions of radiation. Colonoscopy 5 years ago was normal. Admitted with RVR A fib on cardiazem drip now in sinus rhythm. Hb stable currently. Will benefit from repeat colonoscopy as outpatient once cardiac issues have resolved and has cardiac clearance for anesthesia. Scheduled for cystoscopy on 01/28 due to persistent hematuria. Continue PPI in am daily and will get CTAP prior to discharge. Will follow with GI as outpatient for EGD/colonoscopy. Diet as tolerated.
--- NOTE | 2017-01-12 12:05 | CT ---
PROCEDURE: CT Abdomen and Pelvis without intravenous contrast HISTORY: rectal bleeding COMPARISON: And pelvis CT without contrast 01/25/2016. TECHNIQUE: Helical CT of the abdomen pelvis was performed without oral or intravenous contrast administered. Contrast Dose: None Radiation dose: Total exam DLP = 313 mGy-cm. This CT exam was performed using one or more of the following dose reduction techniques: Automated exposure control, adjustment of the mA and/or kV according to patient size, and/or use of iterative reconstruction technique. FINDINGS: LOWER THORAX: Mild COPD and bilateral basilar dependent atelectasis are identified. Cardiomegaly is again evident. LIVER: Unremarkable. No gross lesion or ductal dilatation. GALLBLADDER AND BILE DUCTS: Gallbladder is mildly distended with cholelithiasis again appreciated. PANCREAS: Unremarkable. No gross lesion or ductal dilatation. SPLEEN: Unremarkable. ADRENALS: Unremarkable. No mass. KIDNEYS AND URETERS: A punctate intrarenal calculus is seen at the midpole left kidney. No obstructive uropathy seen the left side. At the right side, hydroureteronephrosis has increased with gross dilatation of the right ureter identified up to 2.5 cm greatest diameter. The distal left ureter is also dilated up to 1.5 cm greatest dimension. Urinary bladder is only minimally distended. No radiodense urolithiasis is identified either distal ureter or ureterovesical junction region bilaterally. Prostate gland only appears mildly enlarged consider possible distal bilateral ureteral strictures or also urinary bladder mass. It is poorly characterized given lack of contrast but appears thickened more so on the right than left sides. VASCULATURE: Status post inferior vena cava filter deployment again evident at the infrarenal IVC. Nonaneurysmal atherosclerotic aorta again noted. BOWEL: Unremarkable. No obstruction. No gross mural thickening. APPENDIX: Unremarkable. Normal appendix. PERITONEUM: The right lateral ventral abdominal hernia is again identified measuring 2.7 cm at the neck with increase perineal fat contained within the hernia at the abdominal wall but no bowel. A small fat containing left inguinal hernia appears stable. LYMPH NODES: Unremarkable. No enlarged lymph nodes. BLADDER: Discussed in real in ureter section above. REPRODUCTIVE: Enlarged prostate gland. BONES: No acute fracture. OTHER FINDINGS: None. IMPRESSION: 1. Interval worsening of right hydro ureteral nephrosis without obstructing intra intraureteral calculus identified in either ureter. The left ureter is also quite dilated distally but not proximally with the left kidney E nonobstructive appearing. Clinically correlate for possible urinary bladder masses, distal bilateral ureteral strictures or, less likely, lucent calculi bilaterally. 2. Increased right lateral ventral abdominal hernia containing only mesenteric fat. 3. Cholelithiasis.
--- NOTE | 2017-01-12 22:57 | CP.PCM.DIS ---
Provider - Provider Date of Admission: 01/10/17 14:20 Attending physician: Darwin Stewart MD Diagnosis - Discharge Diagnosis (1) Atrial fibrillation with RVR Status: Acute Priority: High (2) ESRD (end stage renal disease) on dialysis Status: Chronic Priority: Medium (3) Rectal bleeding Status: Acute Priority: High (4) Diabetes mellitus Status: Chronic Priority: Medium (5) HTN (hypertension) Status: Chronic Hospital Course - Lab Results Lab Results: Most Recent Lab Values WBC 8.2 K/uL (4.8-10.8) 01/11/17 16:50 RBC 3.27 Mil/uL (4.40-5.90) L 01/11/17 16:50 Hgb 9.7 g/dL (12.0-18.0) L 01/11/17 16:50 Hct 29.3 % (35.0-51.0) L 01/11/17 16:50 MCV 89.7 fL (80.0-94.0) 01/11/17 16:50 MCH 29.7 pg (27.0-31.0) 01/11/17 16:50 MCHC 33.1 g/dL (33.0-37.0) 01/11/17 16:50 RDW 17.9 % (11.5-14.5) H 01/11/17 16:50 Plt Count 182 K/uL (130-400) 01/11/17 16:50 MPV 8.8 fL (7.2-11.7) 01/11/17 16:50 Neut % (Auto) 69.8 % (50.0-75.0) 01/11/17 07:16 Lymph % (Auto) 16.4 % (20.0-40.0) L 01/11/17 07:16 [place] % (Auto) 11.7 % (0.0-10.0) H 01/11/17 07:16 Eos % (Auto) 1.6 % (0.0-4.0) 01/11/17 07:16 Baso % (Auto) 0.5 % (0.0-2.0) 01/11/17 07:16 Neut # 6.4 K/uL (1.8-7.0) 01/11/17 07:16 Lymph # 1.5 K/uL (1.0-4.3) 01/11/17 07:16 [place] # 1.1 K/uL (0.0-0.8) H 01/11/17 07:16 Eos # 0.1 K/uL (0.0-0.7) 01/11/17 07:16 Baso # 0.0 K/uL (0.0-0.2) 01/11/17 07:16 PT 11.6 SECONDS (9.7-12.2) 01/10/17 13:06 INR 1.0 01/10/17 13:06 APTT 31 SECONDS (21-34) 01/10/17 13:06 Sodium 133 mmol/L (132-148) 01/11/17 07:16 Potassium 3.6 mmol/L (3.6-5.2) 01/11/17 07:16 Chloride 97 mmol/L (98-107) L 01/11/17 07:16 Carbon Dioxide 24 mmol/L (22-30) 01/11/17 07:16 Anion Gap 16 (10-20) 01/11/17 07:16 BUN 37 mg/dL (9-20) H 01/11/17 07:16 Creatinine 4.1 MG/DL (0.8-1.5) H 01/11/17 07:16 Est GFR ( Amer) 17 01/11/17 07:16 Est GFR (Non-Af Amer) 14 01/11/17 07:16 POC Glucose (mg/dL) 255 mg/dL (65-110) H 01/12/17 11:23 Random Glucose 57 mg/dL (75-110) L 01/11/17 07:16 Calcium 7.6 mg/dl (8.6-10.4) L 01/11/17 07:16 Total Bilirubin 0.8 mg/dL (0.2-1.3) 01/11/17 07:16 AST 24 U/L (17-59) 01/11/17 07:16 ALT 21 U/L (21-72) 01/11/17 07:16 Alkaline Phosphatase 32 U/L (38-126) L D 01/11/17 07:16 Total Creatine Kinase 51 U/L (55-170) L 01/11/17 07:16 CK-MB (Mass) 1.11 ng/mL (0.0-3.38) 01/11/17 07:16 Troponin I < 0.0120 ng/mL (0.00-0.120) 01/10/17 13:06 Troponin I, Quant 0.0390 ng/mL (0.00-0.120) 01/11/17 07:16 Total Protein 5.7 g/dL (6.3-8.3) L 01/11/17 07:16 Albumin 3.1 g/dL (3.5-5.0) L 01/11/17 07:16 Globulin 2.5 gm/dL (2.2-3.9) 01/11/17 07:16 Albumin/Globulin Ratio 1.2 (1.0-2.1) 01/11/17 07:16 Stool Occult Blood Positive (NEGATIVE) H 01/10/17 13:06 Blood Type A POSITIVE 01/10/17 13:06 Antibody Screen Negative 01/10/17 13:06 - Hospital Course Hospital Course: 76 y/o with a.fib, prostate ca, and he was admitted with GI Bleed, A.FIBRILLATION Discharge Exam - Head Exam Head Exam: NORMAL INSPECTION, NORMOCEPHALIC - Eye Exam Eye Exam: EOMI, Normal appearance, PERRL Pupil Exam: NORMAL ACCOMODATION - ENT Exam ENT Exam: Mucous Membranes Moist, Normal Exam, Normal Oropharynx, TM's Normal Bilaterally - Neck Exam Neck exam: Normal Inspection - Respiratory Exam Respiratory Exam: Clear to PA & Lateral, NORMAL BREATHING PATTERN - Cardiovascular Exam Cardiovascular Exam: REGULAR RHYTHM, +S1, +S2 - GI/Abdominal Exam GI & Abdominal Exam: Normal Bowel Sounds, Unremarkable - Rectal Exam Rectal Exam: NORMAL INSPECTION - Neurological Exam Neurological exam: Alert, CN II-XII Intact, Normal Gait, Oriented x3, Reflexes Normal - Psychiatric Exam Psychiatric exam: Normal Mood - Skin Skin Exam: Intact Discharge Plan - Follow Up Plan Condition: STABLE Disposition: HOME/ ROUTINE Instructions: Metoprolol (By mouth), Diltiazem (By mouth), Carvedilol (By mouth ), Pantoprazole (By mouth), Atrial Fibrillation (DC), Rectal Bleeding (DC), Acute Hematuria (DC), End Stage Kidney Disease (DC) Additional Instructions: discharge home follow up with in 1 week also follow up with Dr. Seaman (GI) for testing. If symptoms return or worsen please return to ED Referrals: Jonathan Potts MD [Staff Provider] - Jurgen HURST,MD Arin [Medical Doctor] - Joe Wise MD [Staff Provider] -
== END 2017-01-12 14:49 | disposition home or self-care (01) | DRG 308 ==
LOC: C.ER 12:11 → C.9E 14:20 → C.6T 17:42
PROVIDERS: ADMIT Internal Medicine; ATTEND Internal Medicine
DX: I48.91 Unspecified atrial fibrillation (principal); N18.6 End stage renal disease; I13.2 Hypertensive heart and chronic kidney disease with heart failure and with stage 5 chronic kidney disease, or end stage renal disease; E11.22 Type 2 diabetes mellitus with diabetic chronic kidney disease; K92.2 Gastrointestinal hemorrhage, unspecified; J44.9 Chronic obstructive pulmonary disease, unspecified; D64.9 Anemia, unspecified; I50.9 Heart failure, unspecified; Z95.1 Presence of aortocoronary bypass graft; E78.00 Pure hypercholesterolemia, unspecified; R31.0 Gross hematuria; I25.10 Atherosclerotic heart disease of native coronary artery without angina pectoris; Z79.4 Long term (current) use of insulin; Z79.82 Long term (current) use of aspirin; Z87.891 Personal history of nicotine dependence; Z92.3 Personal history of irradiation; Z85.46 Personal history of malignant neoplasm of prostate; Z99.2 Dependence on renal dialysis

== ENCOUNTER 2017-01-28 06:05 | Day surgery (SDC) | payer OTHER, MEDICAID ==
[2016-03-20 21:08] VITALS: BMI 25.8
[2017-01-28 07:36] LABS: POTASSIUM 4.3 mmol/L (3.6-5.2)
[2017-01-28 07:40] LABS: CALCIUM 7.9 mg/dl (8.6-10.4)
[2017-01-28] MEDS: Iohexol 240 (50 ml) ONE ×2 (07:43→08:40)
[2017-01-28] MEDS: cefTRIAXone IV 1 gm in Dextros 50 ML IVPB ONE ×2 (07:44→08:30)
[2017-01-28] MEDS ORDERED: Sodium Chloride 0.9% 500 ML IV ONE ×2 (07:44)
[2017-01-28] MEDS ORDERED: Propofol 10 mg/ml Inj (20 ML) ONE (07:57)
[2017-01-28] MEDS ORDERED: Midazolam 2 MG/2 ML VIAL ONE (07:58)
[2017-01-28] MEDS ORDERED: Lactated Ringer's 500 ML IV ONE (08:25)
[2017-01-28] MEDS ORDERED: Lactated Ringer's 300 ML IV ONE (09:32)
[2017-01-28] MEDS ORDERED: HYDROmorphone 0.5 mg/0.5 ml ISec IVP PRN (09:33)
--- NOTE | 2017-01-28 09:36 | PCM.SURG1 ---
Surgeon's Initial Post Op Note - Surgeon's Notes Surgeon: Raad Antunez Ice Cream Scooper: none Type of Anesthesia: General Mask Pre-Operative Diagnosis: hematuria Operative Findings: urethral stricture. bladder tumor. urethral tumor Post-Operative Diagnosis: same Operation Performed: cystoscopy. optical internal urethrotomy. urethral balloon dilation. urethral biopsy. bladder biopsy and fulguration Specimen/Specimens Removed: urethral bx. bladder bx Estimated Blood Loss: EBL {In ML}: 15 Blood Products Given: N/A Post-Op Condition: Good Date of Surgery/Procedure: 01/28/17 Time of Surgery/Procedure: 09:20
[2017-01-28 10:59] VITALS: BP 139/50; PULSE 79; RESP 18; TEMP 97.5; O2SAT 96
--- NOTE | 2017-01-28 15:24 | RAD ---
PROCEDURE: HISTORY: For urethral dilatation COMPARISON: None TECHNIQUE: Total fluoroscopic time utilized during the procedure: 70.8 seconds. Total dose 0.44460 mGy cm squared FINDINGS: Submitted images from the current procedure: 8 Please refer to the physician's notes performing the procedure. IMPRESSION: Less than 1 hour fluoroscopic time utilized during performance of the procedure
--- NOTE | 2017-01-30 08:32 | OP ---
PREOPERATIVE DIAGNOSES 1. Hematuria. 2. History of prostate cancer. POSTOPERATIVE DIAGNOSES 1. Hematuria. 2. History of prostate cancer. 3. Urethral stricture. 4. Abnormal tissue within the urethra. 5. Abnormal tissue within the bladder, possible bladder tumor. PROCEDURE 1. Cystoscopy. 2. Optical internal urethrotomy. 3. Urethral balloon dilation. 4. Urethral biopsy. 5. Bladder biopsy and fulguration. 6. Cystogram. PROCEDURE PERFORMED Video endoscopic control as well as under fluoroscopic shoulder. DESCRIPTION OF PROCEDURE As follows. The patient received perioperative antibiotics. The patient was placed in lithotomy position. Genitalia prepped and draped sterilely. Anesthesia was applied by the anesthesiologist. A 22-Russian cystoscope sheath was introduced to urethra. There was noted to be obstruction approximately 3 cm from the urethral meatus, the obstruction did not allow the patient cystoscope sheath. The cystoscopy was again attempted with a smaller, namely 17-Russian, cystoscope sheath. However, the urethral stricture could not be bypassed. The fossa was dilated [place] sounds. Again cystoscopy was attempted, but unsuccessful. A 20-Russian urethrotome sheath was introduced per urethra. Prior to the instruction of the urethrotome sheath, a 5-Russian ureteral catheter was passed per urethra into the bladder. Disposition within bladder was confirmed with fluoroscopy. Urethrotome sheath was advanced adjacent to the ureteral catheter. There was noted to be a dense stricture involving the anterior urethra. The area was able to be opened with the incision in the urethra performed in the 12 o'clock position. However, the urethrotome sheath still not be advanced to the bladder due to a more proximal obstruction within the pendulous and bulbous urethra. Balloon dilation of the urethral stricture was then performed. A guidewire was inserted through the open-ended catheter. The open end catheter was removed. A balloon dilation catheter was inserted over the guidewire. Under fluoroscopic control, the urethra was sequentially dilated. Thereafter, the 20-Russian cystoscope sheath was able to be advanced into the bladder under direct vision adjacent to the guidewire. The urethra demonstrated mucosal abnormalities. Tissue was sent for pathologic examination from the urethra. The bladder was inspected. There was moderate cystitis. There was somewhat decreased visibility due to back bleeding from the prostate and urethra. There was abnormal mucosa located at various sites within the bladder. There were 2 papillary lesions located on the left anterolateral wall. Biopsies were obtained. Fulguration with full electrodes were performed. The ureteral orifices were not identified due to the inflammation, trabeculation of the bladder. The cystoscope and sheath were removed. A [place] catheter was inserted over the guidewire, into the bladder. Proper position was performed to the cystogram. Iodinated contrast was instilled via the Councill Mak catheter. The bladder was noted to be mildly trabeculated. Posterior film was obtained as well. The catheter was left in place. The patient was returned to the supine position. Rectal examination had been performed. There was some induration of the prostatic fossa without discrete mass and without fixation. The patient tolerated the procedure without complication. Asya Antunez MD CC: Asya Antunez MD
== END 2017-01-28 11:37 | disposition home or self-care (01) ==
LOC: C.SDS 06:05
PROVIDERS: ATTEND Urology
DX: C61 Malignant neoplasm of prostate (principal); R31.0 Gross hematuria
CPT/HCPCS: 36415; 52224; 52276; 80048; 82948; 88305; 88309; 88342; C1758; C1769; J0696; J7120; Q9966

== ENCOUNTER 2017-03-20 15:21 | Inpatient (IN) | payer OTHER, MEDICAID ==
[2017-03-20 15:21] VITALS: BMI 25.8
[2017-03-20 16:00] LABS: BASO % 0.4 % (0.0-2.0); EOS # 0.1 K/uL (0.0-0.7); EOS % 0.5 % (0.0-4.0); HEMATOCRIT 35.4 % (35.0-51.0); LYMPH # 0.6 K/uL (1.0-4.3); LYMPH % 5.2 % (20.0-40.0); MEAN CORPUSCULAR HEMOGLOBIN 26.5 pg (27.0-31.0); MEAN CORPUSCULAR HGB CONC 31.5 g/dL (33.0-37.0); MONO # 0.8 K/uL (0.0-0.8); MONO % 7.2 % (0.0-10.0); NRBC % 0.1 % (0.0-2.0); PLATELET COUNT 219 K/uL (130-400); RED CELL DISTRIBUTION WIDTH 20.1 % (11.5-14.5); WHITE BLOOD COUNT 11.5 K/uL (4.8-10.8)
[2017-03-20 16:01] LABS: MEAN CELL VOLUME 84.2 fL (80.0-94.0)
[2017-03-20 16:07] LABS: POTASSIUM 4.3 mmol/L (3.6-5.2)
[2017-03-20 16:09] LABS: ALB/GLOB RATIO 1.3 (1.0-2.1); BILIRUBIN,TOTAL 1.2 mg/dL (0.2-1.3); CALCIUM 8.5 mg/dl (8.6-10.4); TOTAL PROTEIN 6.9 g/dL (6.3-8.3)
--- NOTE | 2017-03-20 16:19 | RAD ---
PROCEDURE: CHEST RADIOGRAPH, 1 VIEW HISTORY: SOB, cough COMPARISON: Portable chest 01/10/2017. FINDINGS: LUNGS: Reticular markings appear increased at the mid inferior lung zones bilaterally without definitive alveolitis. This could be a function of active CHF or acute or subacute interstitial process. PLEURA: No pneumothorax or pleural fluid seen. CARDIOVASCULAR: Cardiomegaly is noted with sternotomy wires once again with increase in hilar vascular markings suspicious for CHF. OSSEOUS STRUCTURES: No significant abnormalities. VISUALIZED UPPER ABDOMEN: Normal. OTHER FINDINGS: None. IMPRESSION: Findings suspicious for active CHF. No alveolitis. Alternatively, consider possible acute or subacute interstitial process.
[2017-03-20 16:22] LABS: TROPONIN I 0.096 ng/mL (0.00-0.120)
[2017-03-20 16:50] LABS: NEUTROPHIL 90 % (50-75); TOTAL CELLS COUNTED 100
[2017-03-20 16:51] LABS: LARGE PLATELETS PRESENT
[2017-03-20 16:58] LABS: INR 1.2
--- NOTE | 2017-03-20 17:00 | C.PDOC ---
History Of Present Illness 76 y/o male c/o chest pain and shortness of breath since yesterday. Notes that pain is worse upon exertion. Denies n/v, cough, or fever. Time Seen by Provider: 03/20/17 16:12 Chief Complaint (Nursing): Chest Pain History Per: Patient History/Exam Limitations: no limitations Onset/Duration Of Symptoms: Days (1) Current Symptoms Are (Timing): Still Present Quality: "Pain" Associated Symptoms: Dyspnea. denies: Nausea, Diaphoresis, Syncope Modifying Factors: None Exacerbating Factors: Exertion Alleviating Factors: None Recent travel outside of the [place]: No Additional History Per: Patient Past Medical History Reviewed: Historical Data, Nursing Documentation, Vital Signs Vital Signs: Last Vital Signs Temp 98 F 03/21/17 15:05 Pulse 115 H 03/21/17 15:05 Resp 20 03/21/17 15:05 BP 93/80 L 03/21/17 15:35 Pulse Ox 97 03/21/17 15:05 - Medical History PMH: Anemia, Asthma, Atrial Fibrillation, Cardia Arrhythmia, CHF, COPD, Diabetes , HTN, Hypercholesterolemia, Malignancy (Prostate), End Stage Renal Disease, Chronic Kidney Disease Denies: Kidney Stones, Peripheral Edema Surgical History: CABG (QUADRUPLE BYPASS in 2005 at [facility] - [facility] Procedures BYPASS LEFT BRACHIAL ARTERY TO UPPER ARM VEIN, OPEN APPROACH (06/09/15) INSERTION OF INFUSION DEV INTO SUP VENA CAVA, PERC APPROACH (06/09/15) PERFORMANCE OF URINARY FILTRATION, MULTIPLE (01/23/16) PERFORMANCE OF URINARY FILTRATION, SINGLE (08/15/15) ULTRASONOGRAPHY OF HEART WITH AORTA, TRANSESOPHAGEAL (01/23/16) Family History: States: Unknown Family Hx - Social History Hx Tobacco Use: No Hx Alcohol Use: No Hx Substance Use: No - Immunization History Hx Tetanus Toxoid Vaccination: No Hx Influenza Vaccination: Yes (2016) Hx Pneumococcal Vaccination: No Review Of Systems Except As Marked, All Systems Reviewed And Found Negative. Constitutional: Negative for: Fever, Chills Cardiovascular: Positive for: Chest Pain. Negative for: Palpitations, Light Headedness Respiratory: Positive for: Shortness of Breath. Negative for: Cough, Sputum Gastrointestinal: Negative for: Nausea, Vomiting, Abdominal Pain Neurological: Negative for: Headache, Dizziness Physical Exam - Physical Exam Appears: Non-toxic, No Acute Distress Skin: Normal Color, Warm, Dry Head: Atraumatic, Normacephalic Eye(s): bilateral: Normal Inspection Oral Mucosa: Moist Neck: Supple Chest: Symmetrical Cardiovascular: Rhythm Irregular (irregularly irregular) Respiratory: Rales (b/l bases), No Rhonchi, No Wheezing Gastrointestinal/Abdominal: Soft, No Tenderness Extremity: Normal ROM, No Pedal Edema Neurological/Psych: Oriented x3, Normal Speech ED Course And Treatment - Laboratory Results Result Diagrams: 03/20/17 15:53 03/20/17 15:53 ECG: Interpreted By Me, Viewed By Me ECG Rhythm: Atrial Fibrillation (with rapid ventricular response) ECG Interpretation: No Acute Changes Interpretation Of ECG: Left axis deviation. Non-specific ST wave changes. Rate From EC (bpm) O2 Sat by Pulse Oximetry: 95 (RA) Pulse Ox Interpretation: Normal Medical Decision Making Medical Decision Making: Impression: CHF, A-fib Spoke to Dr. Alvarez who accepts pt for admission for CHF, and A-fib. Also requesting Dr. Potts for consult. Disposition Discussed With : Karissa Alvarez Doctor Will See Patient In The: Hospital Counseled Patient/Family Regarding: Studies Performed, Diagnosis - Disposition Disposition: HOSPITALIZED Disposition Time: 17:40 Condition: FAIR - Clinical Impression Clinical Impression: Chest pain, Congestive heart failure, Atrial fibrillation - Scribe Statement The provider has reviewed the documentation as recorded by the Ace Callahan All medical record entries made by the Neetaibkade were at my direction and personally dictated by me. I have reviewed the chart and agree that the record accurately reflects my personal performance of the history, physical exam, medical decision making, and the department course for this patient. I have also personally directed, reviewed, and agree with the discharge instructions and disposition.
[2017-03-20 17:29] LABS: TROPONIN I 0.094 ng/mL (0.00-0.120)
[2017-03-20] MEDS ORDERED: (Novolin R) Insulin Human Regular 100 units/ml vial IV ONE (17:30)
[2017-03-20] MEDS ORDERED: (Novolin R) Insulin Human Regular 100 units/ml vial ONE (17:42)
--- NOTE | 2017-03-20 19:19 | CP.PCM.HP ---
History of Present Illness - History of Present Illness History of Present Illness: 76 y.o. male with PMh IDDM2 Hypertension ESRD on HD Recurrent Prostate ca with metastasis COPD CAD s/p CABG history of AFIB admitted ue to shortnes of breath patient denies cough, fevre vomitng diarrhea, chest pain . patient noted not feeling well and decided to go to ER . in ER found in AFIB, to have fluid overload, CHF was given lasix and was subsequently admitted . Present on Admission - Present on Admission Any Indicators Present on Admission: No History of DVT/PE: No History of Uncontrolled Diabetes: No Urinary Catheter: No Decubitus Ulcer Present: No Review of Systems - Constitutional Constitutional: absent: Fatigue, Fever - EENT Eyes: absent: Other Visual Disturbances Ears: absent: Abnormal Hearing, Disequilibrium Nose/Mouth/Throat: absent: Nasal Congestion, Sinus Pain, Dysphagia - Cardiovascular Cardiovascular: absent: Chest Pain - Respiratory Respiratory: absent: Cough, Chest Congestion - Gastrointestinal Gastrointestinal: absent: Abdominal Pain, Diarrhea, Vomiting - Genitourinary Genitourinary: absent: Dysuria, Flank Pain - Musculoskeletal Musculoskeletal: absent: Abnormal Gait, Muscle Cramps - Integumentary Integumentary: absent: Rash, Skin Ulcer, Sores - Neurological Neurological: absent: Abnormal Hearing, Abnormal Movements, Behavioral Changes, Convulsions, Syncope - Psychiatric Psychiatric: absent: Behavioral Changes, Confusion, Depression - Endocrine Endocrine: Fatigue - Hematologic/Lymphatic Hematologic: absent: Easy Bleeding, Easy Bruising Past Patient History - Past Medical History & Family History Past Medical History?: Yes - Past Social History Smoking Status: Former Smoker - CARDIAC Hx Atrial Fibrillation: Yes Hx Cardia Arrhythmia: Yes Hx Congestive Heart Failure: Yes Hx Hypercholesterolemia: Yes Hx Hypertension: Yes Hx Peripheral Edema: No - PULMONARY Hx Asthma: Yes Hx Chronic Obstructive Pulmonary Disease (COPD): Yes - NEUROLOGICAL Hx Neurological Disorder: Yes Hx Dizziness: Yes - HEENT Hx HEENT Problems: Yes Hx Cataracts: Yes (both eyes) - RENAL Hx Chronic Kidney Disease: Yes Hx Kidney Stones: No - ENDOCRINE/METABOLIC Hx Diabetes Mellitus Type 1: Yes - HEMATOLOGICAL/ONCOLOGICAL Hx Anemia: Yes - INTEGUMENTARY Hx Dermatological Problems: No - MUSCULOSKELETAL/RHEUMATOLOGICAL Hx Musculoskeletal Disorders: Yes Hx Falls: Yes - GASTROINTESTINAL Hx Gastrointestinal Disorders: No - GENITOURINARY/GYNECOLOGICAL Hx Genitourinary Disorders: Yes Hx Hematuria: Yes Hx Prostate Cancer: Yes Hx Prostate Problems: Yes Other/Comment: Prostate Sx 10 years ago robotic surgey 2006 - PSYCHIATRIC Hx Substance Use: No - SURGICAL HISTORY Hx Coronary Artery Bypass Graft: Yes (QUADRUPLE BYPASS in 2006 at [facility].) - ANESTHESIA Hx Anesthesia: Yes Hx Anesthesia Reactions: No Hx Malignant Hyperthermia: No Meds Allergies/Adverse Reactions: Allergies Allergy/AdvReac Type Severity Reaction Status Date / Time warfarin sodium Allergy Intermediate RASH Verified 03/20/17 15:35 [From Coumadin] Physical Exam - Constitutional Appears: Non-toxic (is conversant aware of condition) - Head Exam Head Exam: ATRAUMATIC, NORMOCEPHALIC - Eye Exam Eye Exam: absent: Nystagmus - ENT Exam ENT Exam: Mucous Membranes Moist - Respiratory Exam Respiratory Exam: Decreased Breath Sounds, NORMAL BREATHING PATTERN - Cardiovascular Exam Cardiovascular Exam: REGULAR RHYTHM - GI/Abdominal Exam GI & Abdominal Exam: Normal Bowel Sounds, Soft. absent: Tenderness - Neurological Exam Neurological exam: Alert, Normal Gait, Oriented x3 - Psychiatric Exam Psychiatric exam: Normal Affect, Normal Mood - Skin Skin Exam: Intact, Normal Color Results - Vital Signs Recent Vital Signs: Last Vital Signs Temp 98.5 F 03/20/17 16:29 Pulse 88 03/20/17 18:41 Resp 28 H 03/20/17 18:41 BP 135/55 L 03/20/17 18:41 Pulse Ox 100 03/20/17 18:41 - Labs Result Diagrams: 03/20/17 15:53 03/20/17 15:53 Labs: Laboratory Results - last 24 hr 03/20/17 03/20/17 03/20/17 15:53 15:53 16:45 WBC 11.5 H RBC 4.21 L Hgb 11.2 L Hct 35.4 MCV 84.2 D MCH 26.5 L MCHC 31.5 L RDW 20.1 H Plt Count 219 MPV 10.0 Neut % (Auto) 86.7 H Lymph % (Auto) 5.2 L [place] % (Auto) 7.2 Eos % (Auto) 0.5 Baso % (Auto) 0.4 Neut # 10.0 H Lymph # 0.6 L [place] # 0.8 Eos # 0.1 Baso # 0.0 Neutrophils % (Manual) 90 H Lymphocytes % (Manual) 4 L Monocytes % (Manual) 6 Platelet Estimate Normal Large Platelets Present Hypochromasia (manual) Slight Poikilocytosis (manual Slight Anisocytosis (manual) Slight Target Cells Slight Ovalocytes Slight PT 13.4 H INR 1.2 APTT 33 Sodium 131 L Potassium 4.3 Chloride 96 L Carbon Dioxide 20 L Anion Gap 19 BUN 54 H Creatinine 3.8 H Est GFR ( Amer) 19 Est GFR (Non-Af Amer) 15 POC Glucose (mg/dL) Random Glucose 407 H* D Calcium 8.5 L Total Bilirubin 1.2 AST 223 H D ALT 292 H D Alkaline Phosphatase 104 Troponin I 0.0960 NT-Pro-B Natriuret Pep Total Protein 6.9 Albumin 3.9 Globulin 3.0 Albumin/Globulin Ratio 1.3 03/20/17 03/20/17 16:46 18:48 WBC RBC Hgb Hct MCV MCH MCHC RDW Plt Count MPV Neut % (Auto) Lymph % (Auto) [place] % (Auto) Eos % (Auto) Baso % (Auto) Neut # Lymph # Harris # Eos # Baso # Neutrophils % (Manual) Lymphocytes % (Manual) Monocytes % (Manual) Platelet Estimate Large Platelets Hypochromasia (manual) Poikilocytosis (manual Anisocytosis (manual) Target Cells Ovalocytes PT INR APTT Sodium Potassium Chloride Carbon Dioxide Anion Gap BUN Creatinine Est GFR ( Amer) Est GFR (Non-Af Amer) POC Glucose (mg/dL) 227 H Random Glucose Calcium Total Bilirubin AST ALT Alkaline Phosphatase Troponin I 0.0940 NT-Pro-B Natriuret Pep 53625 H Total Protein Albumin Globulin Albumin/Globulin Ratio Assessment & Plan - Assessment and Plan (Free Text) Assessment: Patient with ESRD CAD Hypertension Prostate ca with admitted for fluid overload/ CHF will notify samuel Morillo, fluid restriction Cardio consult Timothy panel 2 D echo aspirin DVT prophylaxi GI prophylaxis continue other medications heart helaty renal DM diet - Date & Time Date: 03/20/17
[2017-03-20] MEDS: (Novolog) Insulin Aspart, Recombinant 100 u/ml 10 ml vial SC SCH (22:07)
--- NOTE | 2017-03-21 00:01 | CP.PCM.CON ---
History of Present Illness - History of Present Illness History of Present Illness: 76 y.o. male with PMh IDDM2 Hypertension ESRD on HD Recurrent Prostate ca with metastasis COPD CAD s/p CABG history of AFIB admitted ue to shortnes of breath patient denies cough, fevre vomitng diarrhea, chest pain . patient noted not feeling well and decided to go to ER . in ER found in AFIB, to have fluid overload, CHF was given lasix and was subsequently admitted . Present on Admission - Present on Admission Any Indicators Present on Admission: No History of DVT/PE: No History of Uncontrolled Diabetes: No Urinary Catheter: No Decubitus Ulcer Present: No Review of Systems - Constitutional Constitutional: absent: Fatigue, Fever - EENT Eyes: absent: Other Visual Disturbances Ears: absent: Abnormal Hearing, Disequilibrium Nose/Mouth/Throat: absent: Nasal Congestion, Sinus Pain, Dysphagia - Cardiovascular Cardiovascular: absent: Chest Pain - Respiratory Respiratory: absent: Cough, Chest Congestion - Gastrointestinal Gastrointestinal: absent: Abdominal Pain, Diarrhea, Vomiting - Genitourinary Genitourinary: absent: Dysuria, Flank Pain - Musculoskeletal Musculoskeletal: absent: Abnormal Gait, Muscle Cramps - Integumentary Integumentary: absent: Rash, Skin Ulcer, Sores - Neurological Neurological: absent: Abnormal Hearing, Abnormal Movements, Behavioral Changes, Convulsions, Syncope - Psychiatric Psychiatric: absent: Behavioral Changes, Confusion, Depression - Endocrine Endocrine: Fatigue - Hematologic/Lymphatic Hematologic: absent: Easy Bleeding, Easy Bruising Physical Exam - Constitutional Appears: Non-toxic (is conversant aware of condition) - Head Exam Head Exam: ATRAUMATIC, NORMOCEPHALIC - Eye Exam Eye Exam: absent: Nystagmus - ENT Exam ENT Exam: Mucous Membranes Moist - Respiratory Exam Respiratory Exam: Decreased Breath Sounds, NORMAL BREATHING PATTERN - Cardiovascular Exam Cardiovascular Exam: REGULAR RHYTHM - GI/Abdominal Exam GI & Abdominal Exam: Normal Bowel Sounds, Soft. absent: Tenderness - Neurological Exam Neurological exam: Alert, Normal Gait, Oriented x3 - Psychiatric Exam Psychiatric exam: Normal Affect, Normal Mood - Skin Skin Exam: Intact, Normal Color Past Patient History - Past Medical History & Family History Past Medical History?: Yes - Past Social History Smoking Status: Former Smoker - CARDIAC Hx Atrial Fibrillation: Yes Hx Cardia Arrhythmia: Yes Hx Congestive Heart Failure: Yes Hx Hypercholesterolemia: Yes Hx Hypertension: Yes Hx Peripheral Edema: No - PULMONARY Hx Asthma: Yes Hx Chronic Obstructive Pulmonary Disease (COPD): Yes - NEUROLOGICAL Hx Neurological Disorder: Yes Hx Dizziness: Yes - HEENT Hx HEENT Problems: Yes Hx Cataracts: Yes (both eyes) - RENAL Hx Chronic Kidney Disease: Yes Hx Kidney Stones: No - ENDOCRINE/METABOLIC Hx Diabetes Mellitus Type 1: Yes - HEMATOLOGICAL/ONCOLOGICAL Hx Anemia: Yes - INTEGUMENTARY Hx Dermatological Problems: No - MUSCULOSKELETAL/RHEUMATOLOGICAL Hx Musculoskeletal Disorders: Yes Hx Falls: Yes - GASTROINTESTINAL Hx Gastrointestinal Disorders: No - GENITOURINARY/GYNECOLOGICAL Hx Genitourinary Disorders: Yes Hx Hematuria: Yes Hx Prostate Cancer: Yes Hx Prostate Problems: Yes Other/Comment: Prostate Sx 10 years ago robotic surgey 2006 - PSYCHIATRIC Hx Substance Use: No - SURGICAL HISTORY Hx Coronary Artery Bypass Graft: Yes (QUADRUPLE BYPASS in 2006 at [facility].) - ANESTHESIA Hx Anesthesia: Yes Hx Anesthesia Reactions: No Hx Malignant Hyperthermia: No Meds Allergies/Adverse Reactions: Allergies Allergy/AdvReac Type Severity Reaction Status Date / Time warfarin sodium Allergy Intermediate RASH Verified 03/20/17 15:35 [From Coumadin] - Medications Medications: Current Medications Alprazolam (Xanax) 0.25 mg PO Q12H [facility] Stop: 03/27/17 21:01 Last Admin: 03/20/17 21:42 Dose: 0.25 mg Aspirin (Ecotrin) 81 mg PO DAILY [facility] Diltiazem HCl (Cardizem) 60 mg PO Q8 [facility] Last Admin: 03/20/17 21:42 Dose: 60 mg Glipizide (Glucotrol) 5 mg PO DAILY [facility] Heparin Sodium (Porcine) (Heparin) 5,000 units SC Q8 [facility] Last Admin: 03/20/17 21:42 Dose: 5,000 units Insulin Aspart (Novolog Mix 70/30 (70/30 Units/Ml)) 25 units SC QPM [facility] Insulin Aspart (Novolog) 0 unit SC ACHS [facility] PRN Reason: Protocol Last Admin: 03/20/17 22:07 Dose: Not Given Metoprolol Succinate (Toprol Xl) 25 mg PO DAILY [facility] Pantoprazole Sodium (Protonix Ec Tab) 40 mg PO DAILY [facility] Rosuvastatin Calcium (Crestor) 5 mg PO HS [facility] Last Admin: 03/20/17 21:42 Dose: 5 mg Results - Vital Signs Recent Vital Signs: Last Vital Signs Temp 97.1 F L 11/09/17 19:10 Pulse 90 03/20/17 20:03 Resp 21 03/20/17 20:03 BP 146/72 03/20/17 21:43 Pulse Ox 97 03/20/17 20:03 - Labs Result Diagrams: 03/28/17 19:57 03/27/17 22:00 Labs: Laboratory Results - last 24 hr 03/20/17 03/20/17 03/20/17 15:53 15:53 16:45 WBC 11.5 H RBC 4.21 L Hgb 11.2 L Hct 35.4 MCV 84.2 D MCH 26.5 L MCHC 31.5 L RDW 20.1 H Plt Count 219 MPV 10.0 Neut % (Auto) 86.7 H Lymph % (Auto) 5.2 L [place] % (Auto) 7.2 Eos % (Auto) 0.5 Baso % (Auto) 0.4 Neut # 10.0 H Lymph # 0.6 L [place] # 0.8 Eos # 0.1 Baso # 0.0 Neutrophils % (Manual) 90 H Lymphocytes % (Manual) 4 L Monocytes % (Manual) 6 Platelet Estimate Normal Large Platelets Present Hypochromasia (manual) Slight Poikilocytosis (manual Slight Anisocytosis (manual) Slight Target Cells Slight Ovalocytes Slight PT 13.4 H INR 1.2 APTT 33 Sodium 131 L Potassium 4.3 Chloride 96 L Carbon Dioxide 20 L Anion Gap 19 BUN 54 H Creatinine 3.8 H Est GFR ( Amer) 19 Est GFR (Non-Af Amer) 15 POC Glucose (mg/dL) Random Glucose 407 H* D Calcium 8.5 L Total Bilirubin 1.2 AST 223 H D ALT 292 H D Alkaline Phosphatase 104 Total Creatine Kinase CK-MB (Mass) Troponin I 0.0960 Troponin I, Quant NT-Pro-B Natriuret Pep Total Protein 6.9 Albumin 3.9 Globulin 3.0 Albumin/Globulin Ratio 1.3 03/20/17 03/20/17 03/20/17 16:46 18:48 20:02 WBC RBC Hgb Hct MCV MCH MCHC RDW Plt Count MPV Neut % (Auto) Lymph % (Auto) [place] % (Auto) Eos % (Auto) Baso % (Auto) Neut # Lymph # [place] # Eos # Baso # Neutrophils % (Manual) Lymphocytes % (Manual) Monocytes % (Manual) Platelet Estimate Large Platelets Hypochromasia (manual) Poikilocytosis (manual Anisocytosis (manual) Target Cells Ovalocytes PT INR APTT Sodium Potassium Chloride Carbon Dioxide Anion Gap BUN Creatinine Est GFR ( Amer) Est GFR (Non-Af Amer) POC Glucose (mg/dL) 227 H Random Glucose Calcium Total Bilirubin AST ALT Alkaline Phosphatase Total Creatine Kinase 32 L CK-MB (Mass) 0.70 Troponin I 0.0940 Troponin I, Quant 0.1250 H* NT-Pro-B Natriuret Pep 30429 H Total Protein Albumin Globulin Albumin/Globulin Ratio 03/20/17 21:33 WBC RBC Hgb Hct MCV MCH MCHC RDW Plt Count MPV Neut % (Auto) Lymph % (Auto) [place] % (Auto) Eos % (Auto) Baso % (Auto) Neut # Lymph # [place] # Eos # Baso # Neutrophils % (Manual) Lymphocytes % (Manual) Monocytes % (Manual) Platelet Estimate Large Platelets Hypochromasia (manual) Poikilocytosis (manual Anisocytosis (manual) Target Cells Ovalocytes PT INR APTT Sodium Potassium Chloride Carbon Dioxide Anion Gap BUN Creatinine Est GFR ( Amer) Est GFR (Non-Af Amer) POC Glucose (mg/dL) 217 H Random Glucose Calcium Total Bilirubin AST ALT Alkaline Phosphatase Total Creatine Kinase CK-MB (Mass) Troponin I Troponin I, Quant NT-Pro-B Natriuret Pep Total Protein Albumin Globulin Albumin/Globulin Ratio Assessment & Plan - Assessment and Plan (Free Text) Assessment: 76 y.o. male with PMh IDDM2 Hypertension ESRD on HD Recurrent Prostate ca with metastasis COPD CAD s/p CABG history of AFIB
[2017-03-21] MEDS: (Novolog) Insulin Aspart, Recombinant 100 u/ml 10 ml vial SC SCH ×4 (08:41→22:06)
[2017-03-21 08:48] LABS: THYROID STIMULATING HORMONE 1.13 mIU/L (0.46-4.68)
[2017-03-21] MEDS: Pantoprazole 40 mg EC Tab PO SCH (10:46)
[2017-03-21] MEDS: Metoprolol Succinate 25 mg XL Tab PO SCH (13:23)
--- NOTE | 2017-03-21 14:03 | CP.PCM.CON ---
History of Present Illness - History of Present Illness History of Present Illness: 76 y/o FM admitted with increased SOB Due for dialysis today and now in CHF Recently dx with ,metastatic prostate CA; known h/o prostate CA PMH: ESRD CAD POST CABG CHRONIC AFIB DL HTN COPD DM 2 PSH: CABG 2006 [facility] Review of Systems - Constitutional Constitutional: Weight Gain, Weakness - EENT Ears: absent: As Per HPI, Decreased Hearing, Ear Discharge, Ear Pain, Tinnitus, Abnormal Hearing, Disequilibrium, Dizziness, Other Nose/Mouth/Throat: absent: As Per HPI, Epistaxis, Nasal Congestion, Nasal Discharge, Nasal Obstruction, Nasal Trauma, Nose Pain, Post Nasal Drip, Sinus Pain, Sinus Pressure, Bleeding Gums, Change in Voice, Dental Pain, Dry Mouth, Dysphagia, Halitosis, Hoarsness, Lip Swelling, Mouth Lesions, Mouth Pain, Odynophagia, Sore Throat, Throat Swelling, Tongue Swelling, Facial Pain, Neck Pain, Neck Mass, Other - Cardiovascular Cardiovascular: Chest Pain, Dyspnea on Exertion, Orthopnea - Respiratory Respiratory: Cough, Dyspnea - Gastrointestinal Gastrointestinal: Abdominal Pain, Early Satiety - Genitourinary Genitourinary: As Per HPI - Musculoskeletal Musculoskeletal: Muscle Cramps, Myalgias - Integumentary Integumentary: absent: As Per HPI, Acne, Alopecia, Bleeding Lesions, Change in Hair, Change in Nails, Change in Pigmentation, Changing Lesions, Dry Skin, Erythema, Furuncle, Hirsutism, Lesions, New Lesions, Non-Healing Lesions, Photosensitivity, Pruritus, Rash, Skin Pain, Skin Ulcer, Sores, Striae, Swelling , Unusual Bruising, Wounds, Jaundice, Other - Neurological Neurological: Weakness Past Patient History - Past Medical History & Family History Past Medical History?: Yes Past Family History: Reviewed and not pertinent - Past Social History Smoking Status: Current Some Days Smoker Chewing Tobacco Use: No Cigar Use: No Alcohol: None Drugs: Denies Home Situation {Lives}: With Family - CARDIAC Hx Atrial Fibrillation: Yes Hx Cardia Arrhythmia: Yes Hx Congestive Heart Failure: Yes Hx Hypercholesterolemia: Yes Hx Hypertension: Yes Hx Peripheral Edema: No - PULMONARY Hx Asthma: Yes Hx Chronic Obstructive Pulmonary Disease (COPD): Yes - NEUROLOGICAL Hx Neurological Disorder: Yes Hx Dizziness: Yes - HEENT Hx HEENT Problems: Yes Hx Cataracts: Yes (both eyes) - RENAL Hx Chronic Kidney Disease: Yes Hx Kidney Stones: No - ENDOCRINE/METABOLIC Hx Diabetes Mellitus Type 1: Yes - HEMATOLOGICAL/ONCOLOGICAL Hx Anemia: Yes - INTEGUMENTARY Hx Dermatological Problems: No - MUSCULOSKELETAL/RHEUMATOLOGICAL Hx Musculoskeletal Disorders: Yes Hx Falls: Yes - GASTROINTESTINAL Hx Gastrointestinal Disorders: No - GENITOURINARY/GYNECOLOGICAL Hx Genitourinary Disorders: Yes Hx Hematuria: Yes Hx Prostate Cancer: Yes Hx Prostate Problems: Yes Other/Comment: Prostate Sx 10 years ago robotic surgey 2005 - PSYCHIATRIC Hx Substance Use: No - SURGICAL HISTORY Hx Coronary Artery Bypass Graft: Yes (QUADRUPLE BYPASS in 2006 at [facility].) - ANESTHESIA Hx Anesthesia: Yes Hx Anesthesia Reactions: No Hx Malignant Hyperthermia: No Meds Allergies/Adverse Reactions: Allergies Allergy/AdvReac Type Severity Reaction Status Date / Time warfarin sodium Allergy Intermediate RASH Verified 03/20/17 15:35 [From Coumadin] - Medications Medications: Current Medications Alprazolam (Xanax) 0.25 mg PO Q12H [facility] Stop: 03/27/17 21:01 Last Admin: 03/21/17 08:42 Dose: 0.25 mg Aspirin (Ecotrin) 81 mg PO DAILY [facility] Last Admin: 03/21/17 10:46 Dose: 81 mg Diltiazem HCl (Cardizem) 60 mg PO Q8 [facility] Last Admin: 03/21/17 13:23 Dose: Not Given Glipizide (Glucotrol) 5 mg PO DAILY [facility] Last Admin: 03/21/17 10:46 Dose: 5 mg Heparin Sodium (Porcine) (Heparin) 5,000 units SC Q8 [facility] Last Admin: 03/21/17 13:34 Dose: 5,000 units Insulin Aspart (Novolog Mix 70/30 (70/30 Units/Ml)) 25 units SC QPM [facility] Insulin Aspart (Novolog) 0 unit SC ACHS [facility] PRN Reason: Protocol Last Admin: 03/21/17 13:12 Dose: 6 unit Metoprolol Succinate (Toprol Xl) 25 mg PO DAILY [facility] Last Admin: 03/21/17 13:23 Dose: Not Given Pantoprazole Sodium (Protonix Ec Tab) 40 mg PO DAILY [facility] Last Admin: 03/21/17 10:46 Dose: 40 mg Rosuvastatin Calcium (Crestor) 5 mg PO HS [facility] Last Admin: 03/20/17 21:42 Dose: 5 mg Physical Exam - Constitutional Appears: In Acute Distress, Chronically Ill - Head Exam Head Exam: ATRAUMATIC, NORMAL INSPECTION - Eye Exam Eye Exam: EOMI, Normal appearance - Neck Exam Neck exam: Positive for: Normal Inspection. Negative for: Tenderness - Respiratory Exam Respiratory Exam: Rales, Respiratory Distress - Cardiovascular Exam Cardiovascular Exam: Tachycardia, Irregular Rhythm - GI/Abdominal Exam GI & Abdominal Exam: Organomegaly, Soft. absent: Tenderness - Extremities Exam Extremities exam: Positive for: normal inspection. Negative for: tenderness - Neurological Exam Neurological exam: Alert, CN II-XII Intact - Skin Skin Exam: Dry, Warm Results - Vital Signs Recent Vital Signs: Last Vital Signs Temp 97.5 F L 03/21/17 13:18 Pulse 102 H 03/21/17 13:18 Resp 20 03/21/17 13:18 BP 141/75 03/21/17 13:18 Pulse Ox 97 03/21/17 13:18 - Labs Result Diagrams: 03/20/17 15:53 03/20/17 15:53 Labs: Laboratory Results - last 24 hr 03/20/17 03/20/17 03/20/17 15:53 15:53 16:45 WBC 11.5 H RBC 4.21 L Hgb 11.2 L Hct 35.4 MCV 84.2 D MCH 26.5 L MCHC 31.5 L RDW 20.1 H Plt Count 219 MPV 10.0 Neut % (Auto) 86.7 H Lymph % (Auto) 5.2 L [place] % (Auto) 7.2 Eos % (Auto) 0.5 Baso % (Auto) 0.4 Neut # 10.0 H Lymph # 0.6 L [place] # 0.8 Eos # 0.1 Baso # 0.0 Neutrophils % (Manual) 90 H Lymphocytes % (Manual) 4 L Monocytes % (Manual) 6 Platelet Estimate Normal Large Platelets Present Hypochromasia (manual) Slight Poikilocytosis (manual Slight Anisocytosis (manual) Slight Target Cells Slight Ovalocytes Slight PT 13.4 H INR 1.2 APTT 33 Sodium 131 L Potassium 4.3 Chloride 96 L Carbon Dioxide 20 L Anion Gap 19 BUN 54 H Creatinine 3.8 H Est GFR ( Amer) 19 Est GFR (Non-Af Amer) 15 POC Glucose (mg/dL) Random Glucose 407 H* D Calcium 8.5 L Total Bilirubin 1.2 AST 223 H D ALT 292 H D Alkaline Phosphatase 104 Total Creatine Kinase CK-MB (Mass) Troponin I 0.0960 Troponin I, Quant NT-Pro-B Natriuret Pep Total Protein 6.9 Albumin 3.9 Globulin 3.0 Albumin/Globulin Ratio 1.3 TSH 3rd Generation 03/20/17 03/20/17 03/20/17 16:46 18:48 20:02 WBC RBC Hgb Hct MCV MCH MCHC RDW Plt Count MPV Neut % (Auto) Lymph % (Auto) [place] % (Auto) Eos % (Auto) Baso % (Auto) Neut # Lymph # [place] # Eos # Baso # Neutrophils % (Manual) Lymphocytes % (Manual) Monocytes % (Manual) Platelet Estimate Large Platelets Hypochromasia (manual) Poikilocytosis (manual Anisocytosis (manual) Target Cells Ovalocytes PT INR APTT Sodium Potassium Chloride Carbon Dioxide Anion Gap BUN Creatinine Est GFR ( Amer) Est GFR (Non-Af Amer) POC Glucose (mg/dL) 227 H Random Glucose Calcium Total Bilirubin AST ALT Alkaline Phosphatase Total Creatine Kinase 32 L CK-MB (Mass) 0.70 Troponin I 0.0940 Troponin I, Quant 0.1250 H* NT-Pro-B Natriuret Pep 42316 H Total Protein Albumin Globulin Albumin/Globulin Ratio [facility] 3rd Generation 03/20/17 03/21/17 03/21/17 21:33 06:55 07:38 WBC RBC Hgb Hct MCV MCH MCHC RDW Plt Count MPV Neut % (Auto) Lymph % (Auto) [place] % (Auto) Eos % (Auto) Baso % (Auto) Neut # Lymph # [place] # Eos # Baso # Neutrophils % (Manual) Lymphocytes % (Manual) Monocytes % (Manual) Platelet Estimate Large Platelets Hypochromasia (manual) Poikilocytosis (manual Anisocytosis (manual) Target Cells Ovalocytes PT INR APTT Sodium Potassium Chloride Carbon Dioxide Anion Gap BUN Creatinine Est GFR ( Amer) Est GFR (Non-Af Amer) POC Glucose (mg/dL) 217 H 194 H Random Glucose Calcium Total Bilirubin AST ALT Alkaline Phosphatase Total Creatine Kinase 34 L CK-MB (Mass) 0.81 Troponin I Troponin I, Quant 0.0980 NT-Pro-B Natriuret Pep Total Protein Albumin Globulin Albumin/Globulin Ratio [facility] 3rd Generation 1.13 03/21/17 11:25 WBC RBC Hgb Hct MCV MCH MCHC RDW Plt Count MPV Neut % (Auto) Lymph % (Auto) [place] % (Auto) Eos % (Auto) Baso % (Auto) Neut # Lymph # [place] # Eos # Baso # Neutrophils % (Manual) Lymphocytes % (Manual) Monocytes % (Manual) Platelet Estimate Large Platelets Hypochromasia (manual) Poikilocytosis (manual Anisocytosis (manual) Target Cells Ovalocytes PT INR APTT Sodium Potassium Chloride Carbon Dioxide Anion Gap BUN Creatinine Est GFR ( Amer) Est GFR (Non-Af Amer) POC Glucose (mg/dL) 308 H Random Glucose Calcium Total Bilirubin AST ALT Alkaline Phosphatase Total Creatine Kinase CK-MB (Mass) Troponin I Troponin I, Quant NT-Pro-B Natriuret Pep Total Protein Albumin Globulin Albumin/Globulin Ratio TSH 3rd Generation Assessment & Plan (1) Prostate CA Status: Acute (2) Type 2 diabetes mellitus with diabetic nephropathy Status: Acute (3) Atrial fibrillation Status: Acute (4) CHF (congestive heart failure) Status: Acute (5) COPD (chronic obstructive pulmonary disease) with emphysema Status: Chronic (6) ESRD (end stage renal disease) on dialysis Status: Chronic Priority: Medium - Assessment and Plan (Free Text) Plan: Set up for dialysis [facility] Cardiology evaluation Continue cardizem for AFib
--- NOTE | 2017-03-21 17:48 | CP.PCM.PN ---
Subjective - Date & Time of Evaluation Date of Evaluation: 03/21/17 Time of Evaluation: 06:00 - Subjective Subjective: patient seen- ongoing dialysis- conversant - awake allert oriented , aware of condition, breathing improving eating but reports appetite is not that much discussed subacute when needed- refuses he prefers home bowel okay no other complaints Objective - Vital Signs/Intake and Output Vital Signs (last 24 hours): Temp Pulse Resp BP Pulse Ox 98 F 115 H 20 112/70 95 03/21/17 15:05 03/21/17 15:05 03/21/17 15:05 03/21/17 17:10 03/21/17 16:16 - Medications Medications: Current Medications Alprazolam (Xanax) 0.25 mg PO Q12H [facility] Stop: 03/27/17 21:01 Last Admin: 03/21/17 08:42 Dose: 0.25 mg Aspirin (Ecotrin) 81 mg PO DAILY [facility] Last Admin: 03/21/17 10:46 Dose: 81 mg Diltiazem HCl (Cardizem) 60 mg PO Q8 [facility] Last Admin: 03/21/17 13:23 Dose: Not Given Glipizide (Glucotrol) 5 mg PO DAILY [facility] Last Admin: 03/21/17 10:46 Dose: 5 mg Heparin Sodium (Porcine) (Heparin) 5,000 units SC Q8 [facility] Last Admin: 03/21/17 13:34 Dose: 5,000 units Insulin Aspart (Novolog Mix 70/30 (70/30 Units/Ml)) 25 units SC QPM [facility] Insulin Aspart (Novolog) 0 unit SC ACHS [facility] PRN Reason: Protocol Last Admin: 03/21/17 17:15 Dose: Not Given Metoprolol Succinate (Toprol Xl) 25 mg PO DAILY [facility] Last Admin: 03/21/17 13:23 Dose: Not Given Pantoprazole Sodium (Protonix Ec Tab) 40 mg PO DAILY [facility] Last Admin: 03/21/17 10:46 Dose: 40 mg Rosuvastatin Calcium (Crestor) 5 mg PO HS [facility] Last Admin: 03/20/17 21:42 Dose: 5 mg - Labs Labs: 03/20/17 15:53 03/20/17 15:53 PT 13.4 SECONDS (9.7-12.2) H 03/20/17 16:45 INR 1.2 03/20/17 16:45 APTT 33 SECONDS (21-34) 03/20/17 16:45 - Constitutional Appears: Non-toxic, No Acute Distress, Chronically Ill - Head Exam Head Exam: ATRAUMATIC, NORMOCEPHALIC - Eye Exam Eye Exam: absent: Nystagmus - ENT Exam ENT Exam: Mucous Membranes Moist - Neck Exam Neck Exam: absent: Tenderness - Respiratory Exam Respiratory Exam: Decreased Breath Sounds, NORMAL BREATHING PATTERN - Cardiovascular Exam Cardiovascular Exam: REGULAR RHYTHM - GI/Abdominal Exam GI & Abdominal Exam: Soft, Normal Bowel Sounds. absent: Tenderness - Back Exam Back Exam: absent: tenderness - Neurological Exam Neurological Exam: Alert, Awake, Normal Gait, Oriented x3 - Psychiatric Exam Psychiatric exam: Normal Affect, Normal Mood - Skin Skin Exam: Intact, Normal Color Assessment and Plan - Assessment and Plan (Free Text) Assessment: patient with ESRD CAD Hypertension , meteastatic Prostatic ca admitted for fluid overload/CHF -s/p lasix ,ongoing dialysis with improvement A Fib- cardiac work up in progress IDDM2- FS Insulin, with someimprovement , discussion of subacute when ready- patient prefers home
[2017-03-21] MEDS ORDERED: (Novolog Mix 70/30) Insulin Aspart/Insulin Aspar 100 units/ml SC SCH (18:00)
--- NOTE | 2017-03-21 20:24 | CP.PCM.PN ---
Subjective - Date & Time of Evaluation Date of Evaluation: 03/21/17 Time of Evaluation: 20:23 - Subjective Subjective: Patient seen and evaluated s/p HD Feels better with improved breathing Continue Cardizem for A fib Review of Systems - Constitutional Constitutional: absent: Fatigue, Fever - EENT Eyes: absent: Other Visual Disturbances Ears: absent: Abnormal Hearing, Disequilibrium Nose/Mouth/Throat: absent: Nasal Congestion, Sinus Pain, Dysphagia - Cardiovascular Cardiovascular: absent: Chest Pain - Respiratory Respiratory: absent: Cough, Chest Congestion - Gastrointestinal Gastrointestinal: absent: Abdominal Pain, Diarrhea, Vomiting - Genitourinary Genitourinary: absent: Dysuria, Flank Pain - Musculoskeletal Musculoskeletal: absent: Abnormal Gait, Muscle Cramps - Integumentary Integumentary: absent: Rash, Skin Ulcer, Sores - Neurological Neurological: absent: Abnormal Hearing, Abnormal Movements, Behavioral Changes, Convulsions, Syncope - Psychiatric Psychiatric: absent: Behavioral Changes, Confusion, Depression - Endocrine Endocrine: Fatigue - Hematologic/Lymphatic Hematologic: absent: Easy Bleeding, Easy Bruising Physical Exam - Constitutional Appears: Non-toxic (is conversant aware of condition) - Head Exam Head Exam: ATRAUMATIC, NORMOCEPHALIC - Eye Exam Eye Exam: absent: Nystagmus - ENT Exam ENT Exam: Mucous Membranes Moist - Respiratory Exam Respiratory Exam: Decreased Breath Sounds, NORMAL BREATHING PATTERN - Cardiovascular Exam Cardiovascular Exam: REGULAR RHYTHM - GI/Abdominal Exam GI & Abdominal Exam: Normal Bowel Sounds, Soft. absent: Tenderness - Neurological Exam Neurological exam: Alert, Normal Gait, Oriented x3 - Psychiatric Exam Psychiatric exam: Normal Affect, Normal Mood - Skin Skin Exam: Intact, Normal Color Objective - Vital Signs/Intake and Output Vital Signs (last 24 hours): Temp Pulse Resp BP Pulse Ox 97.4 F L 98 H 18 120/77 98 03/21/17 18:35 03/21/17 18:35 03/21/17 18:35 03/21/17 18:35 03/21/17 18:35 - Medications Medications: Current Medications Alprazolam (Xanax) 0.25 mg PO Q12H [facility] Stop: 03/27/17 21:01 Last Admin: 03/21/17 08:42 Dose: 0.25 mg Aspirin (Ecotrin) 81 mg PO DAILY [facility] Last Admin: 03/21/17 10:46 Dose: 81 mg Diltiazem HCl (Cardizem) 60 mg PO Q8 [facility] Last Admin: 03/21/17 13:23 Dose: Not Given Glipizide (Glucotrol) 5 mg PO DAILY [facility] Last Admin: 03/21/17 10:46 Dose: 5 mg Heparin Sodium (Porcine) (Heparin) 5,000 units SC Q8 [facility] Last Admin: 03/21/17 13:34 Dose: 5,000 units Insulin Aspart (Novolog Mix 70/30 (70/30 Units/Ml)) 25 units SC QPM [facility] Insulin Aspart (Novolog) 0 unit SC ACHS [facility] PRN Reason: Protocol Last Admin: 03/21/17 17:15 Dose: Not Given Metoprolol Succinate (Toprol Xl) 25 mg PO DAILY [facility] Last Admin: 03/21/17 13:23 Dose: Not Given Pantoprazole Sodium (Protonix Ec Tab) 40 mg PO DAILY [facility] Last Admin: 03/21/17 10:46 Dose: 40 mg Rosuvastatin Calcium (Crestor) 5 mg PO HS [facility] Last Admin: 03/20/17 21:42 Dose: 5 mg - Labs Labs: 03/20/17 15:53 03/20/17 15:53 PT 13.4 SECONDS (9.7-12.2) H 03/20/17 16:45 INR 1.2 03/20/17 16:45 APTT 33 SECONDS (21-34) 03/20/17 16:45 Assessment and Plan - Assessment and Plan (Free Text) Assessment: 76 y.o. male with PMh IDDM2 Hypertension ESRD on HD Recurrent Prostate ca with metastasis COPD CAD s/p CABG history of AFIB
[2017-03-22] MEDS: (Novolog) Insulin Aspart, Recombinant 100 u/ml 10 ml vial SC SCH ×4 (08:17→21:46)
[2017-03-22] MEDS: Metoprolol Succinate 25 mg XL Tab PO SCH (09:49)
[2017-03-22] MEDS: Pantoprazole 40 mg EC Tab PO SCH (09:49)
--- NOTE | 2017-03-22 10:58 | CP.PCM.PN ---
Subjective - Date & Time of Evaluation Date of Evaluation: 03/22/17 Time of Evaluation: 10:10 - Subjective Subjective: sob better 3 uf yesterday declines repeat HD today no chest pain no rash appetite fair no arthralgias no abdominal pain no headache oliguric no nasal congestion Objective - Vital Signs/Intake and Output Vital Signs (last 24 hours): Temp Pulse Resp BP Pulse Ox 97.3 F L 96 H 18 116/67 96 03/22/17 07:44 03/22/17 10:47 03/22/17 07:44 03/22/17 07:44 03/22/17 07:44 Intake and Output: 03/22/17 03/22/17 06:59 18:59 Intake Total 240 Output Total 0 Balance 240 - Medications Medications: Current Medications Alprazolam (Xanax) 0.25 mg PO Q12H [facility] Stop: 03/27/17 21:01 Last Admin: 03/22/17 09:49 Dose: 0.25 mg Aspirin (Ecotrin) 81 mg PO DAILY [facility] Last Admin: 03/22/17 09:49 Dose: 81 mg Diltiazem HCl (Cardizem) 60 mg PO Q8 [facility] Last Admin: 03/22/17 05:47 Dose: 60 mg Glipizide (Glucotrol) 5 mg PO DAILY [facility] Last Admin: 03/22/17 09:49 Dose: 5 mg Heparin Sodium (Porcine) (Heparin) 5,000 units SC Q8 [facility] Last Admin: 03/22/17 05:47 Dose: 5,000 units Insulin Aspart (Novolog Mix 70/30 (70/30 Units/Ml)) 25 units SC QPM [facility] Last Admin: 03/21/17 18:45 Dose: 25 units Insulin Aspart (Novolog) 0 unit SC ACHS [facility] PRN Reason: Protocol Last Admin: 03/22/17 08:17 Dose: Not Given Metoprolol Succinate (Toprol Xl) 25 mg PO DAILY [facility] Last Admin: 03/22/17 09:49 Dose: 25 mg Pantoprazole Sodium (Protonix Ec Tab) 40 mg PO DAILY [facility] Last Admin: 03/22/17 09:49 Dose: 40 mg Rosuvastatin Calcium (Crestor) 5 mg PO HS [facility] Last Admin: 03/21/17 22:17 Dose: 5 mg - Labs Labs: 03/20/17 15:53 03/20/17 15:53 PT 13.4 SECONDS (9.7-12.2) H 03/20/17 16:45 INR 1.2 03/20/17 16:45 APTT 33 SECONDS (21-34) 03/20/17 16:45 - Constitutional Appears: Non-toxic, Chronically Ill - Head Exam Head Exam: ATRAUMATIC - Eye Exam Eye Exam: EOMI - ENT Exam ENT Exam: Mucous Membranes Moist - Neck Exam Neck Exam: Full ROM. absent: Lymphadenopathy - Respiratory Exam Respiratory Exam: Decreased Breath Sounds. absent: Accessory Muscle Use - Cardiovascular Exam Cardiovascular Exam: RRR. absent: Rubs - GI/Abdominal Exam GI & Abdominal Exam: Normal Bowel Sounds. absent: Tenderness - Extremities Exam Extremities Exam: absent: Pedal Edema - Neurological Exam Neurological Exam: Alert, Oriented x3 Assessment and Plan - Assessment and Plan (Free Text) Assessment: esrd cardiomyopathy fluid overload reduce edw fluid restriction reviewed cardiology eval pt to transfer HD unit, case management made aware
--- NOTE | 2017-03-22 13:26 | CP.PCM.PN ---
Subjective - Date & Time of Evaluation Date of Evaluation: 03/22/17 Time of Evaluation: 02:00 - Subjective Subjective: Patient seen- had dialysis -no shortness of breath conversant aware of condition and plan renal wants another dialysis tomorrow patient is refusing discussed with cardio procedure friday Objective - Vital Signs/Intake and Output Vital Signs (last 24 hours): Temp Pulse Resp BP Pulse Ox 97.3 F L 92 H 18 116/67 96 03/22/17 07:44 03/22/17 11:51 03/22/17 07:44 03/22/17 07:44 03/22/17 07:44 Intake and Output: 03/22/17 03/22/17 06:59 18:59 Intake Total 240 Output Total 0 Balance 240 - Medications Medications: Current Medications Alprazolam (Xanax) 0.25 mg PO Q12H [facility] Stop: 03/27/17 21:01 Last Admin: 03/22/17 09:49 Dose: 0.25 mg Aspirin (Ecotrin) 81 mg PO DAILY [facility] Last Admin: 03/22/17 09:49 Dose: 81 mg Diltiazem HCl (Cardizem) 60 mg PO Q8 [facility] Last Admin: 03/22/17 13:10 Dose: 60 mg Glipizide (Glucotrol) 5 mg PO DAILY [facility] Last Admin: 03/22/17 09:49 Dose: 5 mg Heparin Sodium (Porcine) (Heparin) 5,000 units SC Q8 [facility] Last Admin: 03/22/17 13:10 Dose: 5,000 units Insulin Aspart (Novolog Mix 70/30 (70/30 Units/Ml)) 25 units SC QPM [facility] Last Admin: 03/21/17 18:45 Dose: 25 units Insulin Aspart (Novolog) 0 unit SC ACHS [facility] PRN Reason: Protocol Last Admin: 03/22/17 12:43 Dose: 6 unit Metoprolol Succinate (Toprol Xl) 25 mg PO DAILY [facility] Last Admin: 03/22/17 09:49 Dose: 25 mg Pantoprazole Sodium (Protonix Ec Tab) 40 mg PO DAILY [facility] Last Admin: 03/22/17 09:49 Dose: 40 mg Rosuvastatin Calcium (Crestor) 5 mg PO HS [facility] Last Admin: 03/21/17 22:17 Dose: 5 mg - Labs Labs: 03/20/17 15:53 03/20/17 15:53 PT 13.4 SECONDS (9.7-12.2) H 03/20/17 16:45 INR 1.2 03/20/17 16:45 APTT 33 SECONDS (21-34) 03/20/17 16:45 - Constitutional Appears: Non-toxic, No Acute Distress - Head Exam Head Exam: ATRAUMATIC, NORMOCEPHALIC - Eye Exam Eye Exam: Normal appearance. absent: Nystagmus - ENT Exam ENT Exam: Mucous Membranes Moist - Neck Exam Neck Exam: Full ROM - Respiratory Exam Respiratory Exam: Decreased Breath Sounds, Clear to Ausculation Bilateral, NORMAL BREATHING PATTERN - Cardiovascular Exam Cardiovascular Exam: REGULAR RHYTHM - GI/Abdominal Exam GI & Abdominal Exam: Soft, Normal Bowel Sounds. absent: Tenderness - Extremities Exam Extremities Exam: Full ROM. absent: Pedal Edema - Neurological Exam Neurological Exam: Alert, Awake, Normal Gait, Oriented x3 - Psychiatric Exam Psychiatric exam: Normal Affect, Normal Mood - Skin Skin Exam: Intact, Normal Color Assessment and Plan - Assessment and Plan (Free Text) Assessment: Patient with ESRD with fluid overload- dialysis water restriction- DM- adjusting medicationAfib CAD- S/P CABG- cardiac plan of stress test friday patient aware of plan
[2017-03-22] MEDS: (Novolog Mix 70/30) Insulin Aspart/Insulin Aspar 100 units/ml SC SCH (17:42)
--- NOTE | 2017-03-22 22:08 | CP.PCM.PN ---
Subjective - Date & Time of Evaluation Date of Evaluation: 03/22/17 Time of Evaluation: 17:00 - Subjective Subjective: Patient with recurrent admissions for dyspnea ECHO with normal EF Patient likely benefits from cath given hx of CABG will d/w patient If patient agreeable will schedule for Friday Review of Systems - Constitutional Constitutional: absent: Fatigue, Fever - EENT Eyes: absent: Other Visual Disturbances Ears: absent: Abnormal Hearing, Disequilibrium Nose/Mouth/Throat: absent: Nasal Congestion, Sinus Pain, Dysphagia - Cardiovascular Cardiovascular: absent: Chest Pain - Respiratory Respiratory: absent: Cough, Chest Congestion - Gastrointestinal Gastrointestinal: absent: Abdominal Pain, Diarrhea, Vomiting - Genitourinary Genitourinary: absent: Dysuria, Flank Pain - Musculoskeletal Musculoskeletal: absent: Abnormal Gait, Muscle Cramps - Integumentary Integumentary: absent: Rash, Skin Ulcer, Sores - Neurological Neurological: absent: Abnormal Hearing, Abnormal Movements, Behavioral Changes, Convulsions, Syncope - Psychiatric Psychiatric: absent: Behavioral Changes, Confusion, Depression - Endocrine Endocrine: Fatigue - Hematologic/Lymphatic Hematologic: absent: Easy Bleeding, Easy Bruising Physical Exam - Constitutional Appears: Non-toxic (is conversant aware of condition) - Head Exam Head Exam: ATRAUMATIC, NORMOCEPHALIC - Eye Exam Eye Exam: absent: Nystagmus - ENT Exam ENT Exam: Mucous Membranes Moist - Respiratory Exam Respiratory Exam: Decreased Breath Sounds, NORMAL BREATHING PATTERN - Cardiovascular Exam Cardiovascular Exam: REGULAR RHYTHM - GI/Abdominal Exam GI & Abdominal Exam: Normal Bowel Sounds, Soft. absent: Tenderness - Neurological Exam Neurological exam: Alert, Normal Gait, Oriented x3 - Psychiatric Exam Psychiatric exam: Normal Affect, Normal Mood - Skin Skin Exam: Intact, Normal Color Objective - Vital Signs/Intake and Output Vital Signs (last 24 hours): Temp Pulse Resp BP Pulse Ox 98.2 F 90 20 114/57 L 100 03/22/17 15:43 03/22/17 21:41 03/22/17 21:41 03/22/17 21:41 03/22/17 15:43 Intake and Output: 03/22/17 03/23/17 18:59 06:59 Intake Total 500 Balance 500 - Medications Medications: Current Medications Alprazolam (Xanax) 0.25 mg PO Q12H [facility] Stop: 03/27/17 21:01 Last Admin: 03/22/17 21:38 Dose: 0.25 mg Aspirin (Ecotrin) 81 mg PO DAILY [facility] Last Admin: 03/22/17 09:49 Dose: 81 mg Diltiazem HCl (Cardizem) 60 mg PO Q8 [facility] Last Admin: 03/22/17 21:40 Dose: Not Given Glipizide (Glucotrol) 5 mg PO DAILY [facility] Last Admin: 03/22/17 09:49 Dose: 5 mg Heparin Sodium (Porcine) (Heparin) 5,000 units SC Q8 [facility] Last Admin: 03/22/17 21:38 Dose: 5,000 units Insulin Aspart (Novolog) 0 unit SC ACHS [facility] PRN Reason: Protocol Last Admin: 03/22/17 21:46 Dose: Not Given Insulin Aspart (Novolog Mix 70/30 (70/30 Units/Ml)) 30 units SC QPM [facility] Last Admin: 03/22/17 17:42 Dose: 30 units Metoprolol Succinate (Toprol Xl) 25 mg PO DAILY [facility] Last Admin: 03/22/17 09:49 Dose: 25 mg Pantoprazole Sodium (Protonix Ec Tab) 40 mg PO DAILY [facility] Last Admin: 03/22/17 09:49 Dose: 40 mg Rosuvastatin Calcium (Crestor) 5 mg PO HS [facility] Last Admin: 03/22/17 21:38 Dose: 5 mg - Labs Labs: 03/20/17 15:53 03/20/17 15:53 PT 13.4 SECONDS (9.7-12.2) H 03/20/17 16:45 INR 1.2 03/20/17 16:45 APTT 33 SECONDS (21-34) 03/20/17 16:45 Assessment and Plan - Assessment and Plan (Free Text) Assessment: 76 y.o. male with PMh IDDM2 Hypertension ESRD on HD Recurrent Prostate ca with metastasis COPD CAD s/p CABG history of AFIB
[2017-03-23] MEDS: (Novolog) Insulin Aspart, Recombinant 100 u/ml 10 ml vial SC SCH ×4 (08:32→22:13)
[2017-03-23] MEDS: Pantoprazole 40 mg EC Tab PO SCH (09:46)
[2017-03-23] MEDS: Metoprolol Succinate 25 mg XL Tab PO SCH (09:46)
--- NOTE | 2017-03-23 17:57 | CP.PCM.PN ---
Subjective - Date & Time of Evaluation Date of Evaluation: 03/23/17 Time of Evaluation: 10:15 - Subjective Subjective: Patient seen and evaluated CAD s/p CABG x 4 (2006) admitted with elevated Troponin For cath tomorrow afternoon Review of Systems - Constitutional Constitutional: absent: Fatigue, Fever - EENT Eyes: absent: Other Visual Disturbances Ears: absent: Abnormal Hearing, Disequilibrium Nose/Mouth/Throat: absent: Nasal Congestion, Sinus Pain, Dysphagia - Cardiovascular Cardiovascular: absent: Chest Pain - Respiratory Respiratory: absent: Cough, Chest Congestion - Gastrointestinal Gastrointestinal: absent: Abdominal Pain, Diarrhea, Vomiting - Genitourinary Genitourinary: absent: Dysuria, Flank Pain - Musculoskeletal Musculoskeletal: absent: Abnormal Gait, Muscle Cramps - Integumentary Integumentary: absent: Rash, Skin Ulcer, Sores - Neurological Neurological: absent: Abnormal Hearing, Abnormal Movements, Behavioral Changes, Convulsions, Syncope - Psychiatric Psychiatric: absent: Behavioral Changes, Confusion, Depression - Endocrine Endocrine: Fatigue - Hematologic/Lymphatic Hematologic: absent: Easy Bleeding, Easy Bruising Physical Exam - Constitutional Appears: Non-toxic (is conversant aware of condition) - Head Exam Head Exam: ATRAUMATIC, NORMOCEPHALIC - Eye Exam Eye Exam: absent: Nystagmus - ENT Exam ENT Exam: Mucous Membranes Moist - Respiratory Exam Respiratory Exam: Decreased Breath Sounds, NORMAL BREATHING PATTERN - Cardiovascular Exam Cardiovascular Exam: REGULAR RHYTHM - GI/Abdominal Exam GI & Abdominal Exam: Normal Bowel Sounds, Soft. absent: Tenderness - Neurological Exam Neurological exam: Alert, Normal Gait, Oriented x3 - Psychiatric Exam Psychiatric exam: Normal Affect, Normal Mood - Skin Skin Exam: Intact, Normal Color Objective - Vital Signs/Intake and Output Vital Signs (last 24 hours): Temp Pulse Resp BP Pulse Ox 98 F 101 H 20 116/68 98 03/23/17 15:37 03/23/17 16:00 03/23/17 15:37 03/23/17 15:37 03/23/17 15:37 Intake and Output: 03/23/17 03/23/17 06:59 18:59 Intake Total 320 500 Balance 320 500 - Medications Medications: Current Medications Alprazolam (Xanax) 0.25 mg PO Q12H [facility] Stop: 03/27/17 21:01 Last Admin: 03/23/17 08:32 Dose: 0.25 mg Aspirin (Ecotrin) 81 mg PO DAILY [facility] Last Admin: 03/23/17 09:46 Dose: 81 mg Diltiazem HCl (Cardizem) 60 mg PO Q8 [facility] Last Admin: 03/23/17 13:10 Dose: 60 mg Glipizide (Glucotrol) 5 mg PO DAILY [facility] Last Admin: 03/23/17 09:46 Dose: 5 mg Heparin Sodium (Porcine) (Heparin) 5,000 units SC Q8 [facility] Last Admin: 03/23/17 13:10 Dose: 5,000 units Insulin Aspart (Novolog) 0 unit SC ACHS [facility] PRN Reason: Protocol Last Admin: 03/23/17 12:22 Dose: 2 unit Insulin Aspart (Novolog Mix 70/30 (70/30 Units/Ml)) 30 units SC QPM [facility] Last Admin: 03/22/17 17:42 Dose: 30 units Metoprolol Succinate (Toprol Xl) 25 mg PO DAILY [facility] Last Admin: 03/23/17 09:46 Dose: 25 mg Pantoprazole Sodium (Protonix Ec Tab) 40 mg PO DAILY [facility] Last Admin: 03/23/17 09:46 Dose: 40 mg Rosuvastatin Calcium (Crestor) 5 mg PO HS [facility] Last Admin: 03/22/17 21:38 Dose: 5 mg - Labs Labs: 03/20/17 15:53 03/20/17 15:53 PT 13.4 SECONDS (9.7-12.2) H 03/20/17 16:45 INR 1.2 03/20/17 16:45 APTT 33 SECONDS (21-34) 03/20/17 16:45 Assessment and Plan - Assessment and Plan (Free Text) Assessment: 76 y.o. male with PMh IDDM2 Hypertension ESRD on HD Recurrent Prostate ca with metastasis COPD CAD s/p CABG history of AFIB
[2017-03-23] MEDS: (Novolog Mix 70/30) Insulin Aspart/Insulin Aspar 100 units/ml SC SCH (18:00)
--- NOTE | 2017-03-23 22:08 | CP.PCM.PN ---
Subjective - Date & Time of Evaluation Date of Evaluation: 03/23/17 Time of Evaluation: 09:30 - Subjective Subjective: Patient seen, is aware of stress test procedure in am he will be NPO post midnight report from staff of fluctuating sugar afebrile no cough no chest pain Objective - Vital Signs/Intake and Output Vital Signs (last 24 hours): Temp Pulse Resp BP Pulse Ox 98 F 92 H 20 111/64 98 03/23/17 15:37 03/23/17 21:29 03/23/17 21:29 03/23/17 21:29 03/23/17 15:37 Intake and Output: 03/23/17 03/24/17 18:59 06:59 Intake Total 500 Balance 500 - Medications Medications: Current Medications Alprazolam (Xanax) 0.25 mg PO Q12H [facility] Stop: 03/27/17 21:01 Last Admin: 03/23/17 21:29 Dose: 0.25 mg Aspirin (Ecotrin) 81 mg PO DAILY [facility] Last Admin: 03/23/17 09:46 Dose: 81 mg Diltiazem HCl (Cardizem) 60 mg PO Q8 [facility] Last Admin: 03/23/17 21:28 Dose: 60 mg Glipizide (Glucotrol) 5 mg PO DAILY [facility] Last Admin: 03/23/17 09:46 Dose: 5 mg Insulin Aspart (Novolog) 0 unit SC ACHS [facility] PRN Reason: Protocol Last Admin: 03/23/17 18:00 Dose: Not Given Insulin Aspart (Novolog Mix 70/30 (70/30 Units/Ml)) 30 units SC QPM [facility] Last Admin: 03/23/17 18:00 Dose: Not Given Metoprolol Succinate (Toprol Xl) 25 mg PO DAILY [facility] Last Admin: 03/23/17 09:46 Dose: 25 mg Pantoprazole Sodium (Protonix Ec Tab) 40 mg PO DAILY [facility] Last Admin: 03/23/17 09:46 Dose: 40 mg Rosuvastatin Calcium (Crestor) 5 mg PO HS [facility] Last Admin: 03/23/17 21:28 Dose: 5 mg - Labs Labs: 03/20/17 15:53 03/20/17 15:53 PT 13.4 SECONDS (9.7-12.2) H 03/20/17 16:45 INR 1.2 03/20/17 16:45 APTT 33 SECONDS (21-34) 03/20/17 16:45 - Constitutional Appears: Non-toxic - Head Exam Head Exam: ATRAUMATIC, NORMOCEPHALIC - Eye Exam Eye Exam: Normal appearance. absent: Nystagmus - ENT Exam ENT Exam: Mucous Membranes Moist - Neck Exam Neck Exam: Full ROM - Respiratory Exam Respiratory Exam: Decreased Breath Sounds, Clear to Ausculation Bilateral, NORMAL BREATHING PATTERN - Cardiovascular Exam Cardiovascular Exam: REGULAR RHYTHM - GI/Abdominal Exam GI & Abdominal Exam: Soft (with hematomas and a "ball" of hematomas from heparin injection site ), Normal Bowel Sounds. absent: Tenderness - Extremities Exam Extremities Exam: Full ROM. absent: Joint Swelling, Pedal Edema - Back Exam Back Exam: absent: rash noted - Neurological Exam Neurological Exam: Alert, Awake, Normal Gait, Oriented x3 - Psychiatric Exam Psychiatric exam: Normal Affect, Normal Mood - Skin Skin Exam: Intact, Normal Color Assessment and Plan - Assessment and Plan (Free Text) Assessment: Patient admitted for fluid overload- corrected with scheduked dialysis for ESRD aware of fluid restriction CAD with history of bypass- with history of recurrent Atrial Fibrillation- for stress test in am IDDM2- with fluctuating hypo and hyerglycemia- with no focus of infection- since patient will be NPO tonight for tomorrows procedure, will hold Insulin for now may change 75/25 to long acting and continue monitoring patient showed subcutaneous hematomas with heparin, patient receid his dose today - will hold heparin for now , patient is also on aspirin
[2017-03-24 06:23] LABS: HEMATOCRIT 31.1 % (35.0-51.0); MEAN CELL VOLUME 83.2 fL (80.0-94.0); MEAN CORPUSCULAR HGB CONC 32.4 g/dL (33.0-37.0); MEAN PLATELET VOLUME 9.8 fL (7.2-11.7); RED CELL DISTRIBUTION WIDTH 20.1 % (11.5-14.5); WHITE BLOOD COUNT 11.4 K/uL (4.8-10.8)
[2017-03-24 06:24] LABS: INR 1.1
[2017-03-24 06:47] LABS: POTASSIUM 4.1 mmol/L (3.6-5.2)
[2017-03-24] MEDS: (Novolog) Insulin Aspart, Recombinant 100 u/ml 10 ml vial SC SCH ×4 (08:09→22:20)
[2017-03-24] MEDS: Metoprolol Succinate 25 mg XL Tab PO SCH (10:47)
[2017-03-24] MEDS: Pantoprazole 40 mg EC Tab PO SCH (10:47)
--- NOTE | 2017-03-24 12:12 | CP.PCM.PN ---
Subjective - Date & Time of Evaluation Date of Evaluation: 03/24/17 Time of Evaluation: 12:10 - Subjective Subjective: Seen at dialysis now- UF goal 3000 ml Less dyspneic No new events; feels better No CPs, n, v, diarrhea, HAs labs acceptable trying to switch dialysis to [facility] where he can be evaluated more frequently Objective - Vital Signs/Intake and Output Vital Signs (last 24 hours): Temp Pulse Resp BP Pulse Ox 97 F L 70 16 109/53 L 100 03/24/17 08:50 03/24/17 08:50 03/24/17 08:50 03/24/17 09:45 03/24/17 07:00 Intake and Output: 03/24/17 03/24/17 06:59 18:59 Intake Total 240 Balance 240 - Medications Medications: Current Medications Alprazolam (Xanax) 0.25 mg PO Q12H [facility] Stop: 03/27/17 21:01 Last Admin: 03/24/17 08:51 Dose: Not Given Diltiazem HCl (Cardizem) 60 mg PO Q8 [facility] Last Admin: 03/24/17 05:53 Dose: 60 mg Glipizide (Glucotrol) 5 mg PO DAILY [facility] Last Admin: 03/24/17 10:47 Dose: Not Given Insulin Aspart (Novolog) 0 unit SC [facility] PRN Reason: Protocol Last Admin: 03/24/17 11:41 Dose: Not Given Metoprolol Succinate (Toprol Xl) 25 mg PO DAILY [facility] Last Admin: 03/24/17 10:47 Dose: Not Given Pantoprazole Sodium (Protonix Ec Tab) 40 mg PO DAILY [facility] Last Admin: 03/24/17 10:47 Dose: Not Given Rosuvastatin Calcium (Crestor) 5 mg PO HS [facility] Last Admin: 03/23/17 21:28 Dose: 5 mg - Labs Labs: 03/24/17 06:13 03/24/17 06:13 PT 11.8 SECONDS (9.7-12.2) 03/24/17 06:13 INR 1.1 03/24/17 06:13 APTT 33 SECONDS (21-34) 03/20/17 16:45 - Constitutional Appears: No Acute Distress, Chronically Ill - Head Exam Head Exam: ATRAUMATIC, NORMAL INSPECTION - Eye Exam Eye Exam: EOMI, Normal appearance - Neck Exam Neck Exam: Normal Inspection. absent: Tenderness - Cardiovascular Exam Cardiovascular Exam: Tachycardia, Irregular Rhythm - GI/Abdominal Exam GI & Abdominal Exam: Soft. absent: Tenderness - Extremities Exam Extremities Exam: Normal Inspection. absent: Tenderness - Neurological Exam Neurological Exam: Alert, CN II-XII Intact - Skin Skin Exam: Dry, Warm Assessment and Plan (1) Prostate CA Status: Acute (2) Type 2 diabetes mellitus with diabetic nephropathy Status: Acute (3) Atrial fibrillation Status: Acute (4) CHF (congestive heart failure) Status: Acute (5) COPD (chronic obstructive pulmonary disease) with emphysema Status: Chronic (6) ESRD (end stage renal disease) on dialysis Status: Chronic - Assessment and Plan (Free Text) Plan: Same aggressive UF goal Same rx for AFib Monitor BP; dysnea
--- NOTE | 2017-03-24 12:57 | CP.PCM.PN ---
Subjective - Date & Time of Evaluation Date of Evaluation: 03/24/17 Time of Evaluation: 08:00 - Subjective Subjective: patient seen, ongoing dialysis- aware of condition appetite improving had clots per urine with hstory of prostate ca- will notify his urologist afebrilescheduled for cath- was NPO=had couple of hypoglycemia fluctuationg - discussion of insulin adjustment Objective - Vital Signs/Intake and Output Vital Signs (last 24 hours): Temp Pulse Resp BP Pulse Ox 97 F L 70 16 109/53 L 100 03/24/17 08:50 03/24/17 08:50 03/24/17 08:50 03/24/17 09:45 03/24/17 07:00 Intake and Output: 03/24/17 03/24/17 06:59 18:59 Intake Total 240 Balance 240 - Medications Medications: Current Medications Alprazolam (Xanax) 0.25 mg PO Q12H [facility] Stop: 03/27/17 21:01 Last Admin: 03/24/17 08:51 Dose: Not Given Diltiazem HCl (Cardizem) 60 mg PO Q8 [facility] Last Admin: 03/24/17 05:53 Dose: 60 mg Glipizide (Glucotrol) 5 mg PO DAILY [facility] Last Admin: 03/24/17 10:47 Dose: Not Given Insulin Aspart (Novolog) 0 unit SC ACHS [facility] PRN Reason: Protocol Last Admin: 03/24/17 11:41 Dose: Not Given Metoprolol Succinate (Toprol Xl) 25 mg PO DAILY [facility] Last Admin: 03/24/17 10:47 Dose: Not Given Pantoprazole Sodium (Protonix Ec Tab) 40 mg PO DAILY [facility] Last Admin: 03/24/17 10:47 Dose: Not Given Rosuvastatin Calcium (Crestor) 5 mg PO HS [facility] Last Admin: 03/23/17 21:28 Dose: 5 mg - Labs Labs: 03/24/17 06:13 03/24/17 06:13 PT 11.8 SECONDS (9.7-12.2) 03/24/17 06:13 INR 1.1 03/24/17 06:13 APTT 33 SECONDS (21-34) 03/20/17 16:45 - Constitutional Appears: Non-toxic - Head Exam Head Exam: ATRAUMATIC, NORMOCEPHALIC - Eye Exam Eye Exam: absent: Nystagmus - ENT Exam ENT Exam: Mucous Membranes Moist - Neck Exam Neck Exam: Full ROM. absent: Tenderness - Respiratory Exam Respiratory Exam: Clear to Ausculation Bilateral - Cardiovascular Exam Cardiovascular Exam: REGULAR RHYTHM - GI/Abdominal Exam GI & Abdominal Exam: Soft, Normal Bowel Sounds. absent: Tenderness - Extremities Exam Extremities Exam: Full ROM. absent: Joint Swelling, Pedal Edema, Tenderness - Back Exam Back Exam: absent: tenderness - Psychiatric Exam Psychiatric exam: Normal Affect, Normal Mood - Skin Skin Exam: Intact, Normal Color Assessment and Plan - Assessment and Plan (Free Text) Assessment: Patient with CAD_ history of CBAG- with recurrent A FIB- CHF- for further cardiac evaluation, scheduled for cath IDDM- with fluctuating sugar- with episodes of hypoglycemia- with recent cahnge in appetite - used to be on 100 down to 60 units- will hold insulin for now and monitor and treat accordingly ESRD- on scheduled Dialysis Prostatic ca with mets- with passing of blood clots -will notify , urologist with hematomas- hold heparin and aspirin discussed with cardio continue current care
--- NOTE | 2017-03-24 14:41 | PCM.URO ---
Urology Progress Note - Subjective Hematuria: Yes - Objective Lab Studies: Reviewed (dx; cap, retention , hematuria\ pt having cardiac cath tomorrow no gu intervention thanks for consult) Lab Results Last 24 Hours: Laboratory Results - last 24 hr 03/23/17 03/23/17 03/23/17 11:22 16:59 21:55 WBC RBC Hgb Hct MCV MCH MCHC RDW Plt Count MPV PT INR Sodium Potassium Chloride Carbon Dioxide Anion Gap BUN Creatinine Est GFR ( Amer) Est GFR (Non-Af Amer) POC Glucose (mg/dL) 195 H 228 H 358 H Random Glucose Calcium 03/24/17 03/24/17 03/24/17 06:07 06:13 06:13 WBC 11.4 H RBC 3.74 L Hgb 10.1 L Hct 31.1 L MCV 83.2 MCH 27.0 MCHC 32.4 L RDW 20.1 H Plt Count 170 MPV 9.8 PT 11.8 INR 1.1 Sodium Potassium Chloride Carbon Dioxide Anion Gap BUN Creatinine Est GFR ( Amer) Est GFR (Non-Af Amer) POC Glucose (mg/dL) 296 H Random Glucose Calcium 03/24/17 03/24/17 06:13 11:38 WBC RBC Hgb Hct MCV MCH MCHC RDW Plt Count MPV PT INR Sodium 132 Potassium 4.1 Chloride 96 L Carbon Dioxide 22 Anion Gap 18 BUN 86 H Creatinine 5.5 H Est GFR ( Amer) 12 Est GFR (Non-Af Amer) 10 POC Glucose (mg/dL) 183 H Random Glucose 289 H Calcium 8.0 L Intake & Output: Intake & Output 03/23/17 03/24/17 03/24/17 18:59 06:59 18:59 Intake Total 500 240 200 Balance 500 240 200 Weight 147 lb 0.4 oz Intake: Oral 500 240 200 Other: # Voids Urine, Voided 0 0 # Bowel Movements 0 1 0 Vital Signs: Vital Signs - 24 hr 03/23/17 03/23/17 03/23/17 15:37 16:00 21:29 Temperature 98 F Pulse Rate 99 H 101 H 92 H Pulse Rate [ Apical] Respiratory 20 20 Rate Blood Pressure 116/68 111/64 Blood Pressure [Left Arm] O2 Sat by Pulse 98 Oximetry 03/23/17 03/23/17 03/24/17 23:05 23:48 03:56 Temperature 97.4 F L Pulse Rate 111 H 138 H 97 H Pulse Rate [ Apical] Respiratory 20 Rate Blood Pressure 110/66 Blood Pressure [Left Arm] O2 Sat by Pulse 97 Oximetry 03/24/17 03/24/17 03/24/17 05:40 07:00 08:03 Temperature 98.2 F 98.6 F Pulse Rate 95 H 76 96 H Pulse Rate [ Apical] Respiratory 20 20 Rate Blood Pressure 138/57 L Blood Pressure [Left Arm] O2 Sat by Pulse 99 100 Oximetry 03/24/17 03/24/17 03/24/17 08:50 09:00 09:15 Temperature 97 F L Pulse Rate 70 Pulse Rate [ Apical] Respiratory 16 Rate Blood Pressure 123/65 Blood Pressure 123/65 139/58 L [Left Arm] O2 Sat by Pulse Oximetry 03/24/17 03/24/17 03/24/17 09:30 09:45 10:00 Temperature Pulse Rate Pulse Rate [ Apical] Respiratory Rate Blood Pressure Blood Pressure 139/58 L 109/53 L 106/67 [Left Arm] O2 Sat by Pulse Oximetry 03/24/17 03/24/17 03/24/17 10:25 10:50 11:20 Temperature Pulse Rate Pulse Rate [ Apical] Respiratory Rate Blood Pressure Blood Pressure 115/86 117/72 100/50 L [Left Arm] O2 Sat by Pulse Oximetry 03/24/17 03/24/17 03/24/17 11:35 11:50 12:30 Temperature 97.2 F L Pulse Rate Pulse Rate [ 98 H Apical] Respiratory 20 Rate Blood Pressure Blood Pressure 75/50 L 104/68 97/59 L [Left Arm] O2 Sat by Pulse 100 Oximetry 03/24/17 13:20 Temperature Pulse Rate 90 Pulse Rate [ Apical] Respiratory Rate Blood Pressure 119/50 L Blood Pressure [Left Arm] O2 Sat by Pulse Oximetry
--- NOTE | 2017-03-24 22:05 | CP.PCM.PN ---
Subjective - Date & Time of Evaluation Date of Evaluation: 03/24/17 Time of Evaluation: 14:10 - Subjective Subjective: Patient seen and evaluated Deneis chest pain and dyspnea cath rescheduled to tomorrow Review of Systems - Constitutional Constitutional: absent: Fatigue, Fever - EENT Eyes: absent: Other Visual Disturbances Ears: absent: Abnormal Hearing, Disequilibrium Nose/Mouth/Throat: absent: Nasal Congestion, Sinus Pain, Dysphagia - Cardiovascular Cardiovascular: absent: Chest Pain - Respiratory Respiratory: absent: Cough, Chest Congestion - Gastrointestinal Gastrointestinal: absent: Abdominal Pain, Diarrhea, Vomiting - Genitourinary Genitourinary: absent: Dysuria, Flank Pain - Musculoskeletal Musculoskeletal: absent: Abnormal Gait, Muscle Cramps - Integumentary Integumentary: absent: Rash, Skin Ulcer, Sores - Neurological Neurological: absent: Abnormal Hearing, Abnormal Movements, Behavioral Changes, Convulsions, Syncope - Psychiatric Psychiatric: absent: Behavioral Changes, Confusion, Depression - Endocrine Endocrine: Fatigue - Hematologic/Lymphatic Hematologic: absent: Easy Bleeding, Easy Bruising Physical Exam - Constitutional Appears: Non-toxic (is conversant aware of condition) - Head Exam Head Exam: ATRAUMATIC, NORMOCEPHALIC - Eye Exam Eye Exam: absent: Nystagmus - ENT Exam ENT Exam: Mucous Membranes Moist - Respiratory Exam Respiratory Exam: Decreased Breath Sounds, NORMAL BREATHING PATTERN - Cardiovascular Exam Cardiovascular Exam: REGULAR RHYTHM - GI/Abdominal Exam GI & Abdominal Exam: Normal Bowel Sounds, Soft. absent: Tenderness - Neurological Exam Neurological exam: Alert, Normal Gait, Oriented x3 - Psychiatric Exam Psychiatric exam: Normal Affect, Normal Mood - Skin Skin Exam: Intact, Normal Color Objective - Vital Signs/Intake and Output Vital Signs (last 24 hours): Temp Pulse Resp BP Pulse Ox 97.8 F 87 20 113/55 L 96 03/24/17 15:20 03/24/17 15:20 03/24/17 15:20 03/24/17 15:20 03/24/17 15:20 Intake and Output: 03/24/17 03/25/17 18:59 06:59 Intake Total 200 Balance 200 - Medications Medications: Current Medications Alprazolam (Xanax) 0.25 mg PO Q12H [facility] Stop: 03/27/17 21:01 Last Admin: 03/24/17 08:51 Dose: Not Given Diltiazem HCl (Cardizem) 60 mg PO Q8 [facility] Last Admin: 03/24/17 13:23 Dose: 60 mg Glipizide (Glucotrol) 5 mg PO DAILY [facility] Last Admin: 03/24/17 10:47 Dose: Not Given Insulin Aspart (Novolog) 0 unit SC ACHS [facility] PRN Reason: Protocol Last Admin: 03/24/17 17:33 Dose: 6 unit Metoprolol Succinate (Toprol Xl) 25 mg PO DAILY [facility] Last Admin: 03/24/17 10:47 Dose: Not Given Pantoprazole Sodium (Protonix Ec Tab) 40 mg PO DAILY [facility] Last Admin: 03/24/17 10:47 Dose: Not Given Rosuvastatin Calcium (Crestor) 5 mg PO HS [facility] Last Admin: 03/23/17 21:28 Dose: 5 mg - Labs Labs: 03/24/17 06:13 03/24/17 06:13 PT 11.8 SECONDS (9.7-12.2) 03/24/17 06:13 INR 1.1 03/24/17 06:13 APTT 33 SECONDS (21-34) 03/20/17 16:45 Assessment and Plan - Assessment and Plan (Free Text) Assessment: 76 y.o. male with PMh IDDM2 Hypertension ESRD on HD Recurrent Prostate ca with metastasis COPD CAD s/p CABG history of AFIB
--- NOTE | 2017-03-25 03:34 | CON ---
DATE: HISTORY OF PRESENT ILLNESS: Mr. Cheema is a 76-year-old gentleman. He has a history of prostate cancer treated years back with an open radical retropubic prostatectomy. Then subsequently, he had recurrence, then he had radiation therapy. Subsequent to this, the patient has multiple medical issues that have come up over the last 10 years. He currently has gross hematuria. His PSA is currently pending. An Urology consult was requested for gross hematuria. The patient is in the hospital with gross hematuria with AFib issues and cardiac issues; in fact, he is scheduled for cardiac catheterization for tomorrow. Urology is consulted regarding management of the blood in the urine. He has had recurrent episodes of blood in the urine. He currently is off his heparin and blood thinners pending Urology consult. PAST MEDICAL AND SURGICAL HISTORY: Listed on the chart. PHYSICAL EXAMINATION: GENERAL: Well-nourished male in no apparent distress, currently resting in his bed. I do want to mention his and his friend and family is at his bedside. ABDOMEN: Relatively soft. It is difficult to evaluate for distention. DIAGNOSIS: Gross hematuria. ASSESSMENT: A very pleasant 76-year-old gentleman with history of prostate cancer. He has now castrate-resistant prostate cancer. He has been under therapy. He has been seeing Dr. Ware. From Urology standpoint, he has the presence of gross hematuria. We have to evaluate whether or not we can stop any blood thinners, use heparin or not use heparin. This needs to be evaluated. The patient is for cardiac cath tomorrow. We will see the results of that and then make further recommendations and plans in the meantime. There is no intervention for today. We will consider the possibility for cysto evacuation and clot fulguration, even probable biopsy to rule out any other malignancy, urethral problems, or any other prostatic or bladder problems. So we need to be more thorough. We will have to see how the patient does, but for now it is okay from Urology standpoint to proceed with the cardiac catheterization. We will make further recommendations and plan. Dylan Antunez MD
[2017-03-25] MEDS: (Novolog) Insulin Aspart, Recombinant 100 u/ml 10 ml vial SC SCH ×4 (07:30→21:39)
--- NOTE | 2017-03-25 08:47 | CP.PCM.PN ---
Subjective - Date & Time of Evaluation Date of Evaluation: 03/25/17 Time of Evaluation: 09:00 - Subjective Subjective: patient seen cath was cancelled yesterday for today had hinjection hematomas and has hematuria- was blood clots yeserday - less today- was on heparin and aspirin- was held due to bleeding today no complaints appetite is improving sugar and medication adjustment discussed - no hypogycemia today Objective - Vital Signs/Intake and Output Vital Signs (last 24 hours): Temp Pulse Resp BP Pulse Ox 97.3 F L 91 H 20 126/83 96 03/25/17 07:39 03/25/17 07:39 03/25/17 07:39 03/25/17 07:39 03/25/17 07:39 Intake and Output: 03/25/17 03/25/17 06:59 18:59 Intake Total 300 Balance 300 - Medications Medications: Current Medications Alprazolam (Xanax) 0.25 mg PO Q12H [facility] Stop: 03/27/17 21:01 Last Admin: 03/24/17 22:19 Dose: 0.25 mg Diltiazem HCl (Cardizem) 60 mg PO Q8 [facility] Last Admin: 03/25/17 05:15 Dose: 60 mg Glipizide (Glucotrol) 5 mg PO DAILY [facility] Last Admin: 03/24/17 10:47 Dose: Not Given Insulin Aspart (Novolog) 0 unit SC ACHS [facility] PRN Reason: Protocol Last Admin: 03/24/17 22:20 Dose: 4 unit Insulin Glargine (Lantus) 15 unit SC DAILY [facility] Metoprolol Succinate (Toprol Xl) 25 mg PO DAILY [facility] Last Admin: 03/24/17 10:47 Dose: Not Given Pantoprazole Sodium (Protonix Ec Tab) 40 mg PO DAILY [facility] Last Admin: 03/24/17 10:47 Dose: Not Given Rosuvastatin Calcium (Crestor) 5 mg PO HS [facility] Last Admin: 03/24/17 22:18 Dose: 5 mg - Labs Labs: 03/24/17 06:13 03/24/17 06:13 PT 11.8 SECONDS (9.7-12.2) 03/24/17 06:13 INR 1.1 03/24/17 06:13 APTT 33 SECONDS (21-34) 03/20/17 16:45 - Constitutional Appears: Non-toxic - Head Exam Head Exam: ATRAUMATIC, NORMOCEPHALIC - ENT Exam ENT Exam: Mucous Membranes Moist - Neck Exam Neck Exam: Full ROM. absent: Tenderness - Respiratory Exam Respiratory Exam: Clear to Ausculation Bilateral, NORMAL BREATHING PATTERN - Cardiovascular Exam Cardiovascular Exam: REGULAR RHYTHM - GI/Abdominal Exam GI & Abdominal Exam: Soft, Normal Bowel Sounds - Extremities Exam Extremities Exam: Full ROM. absent: Joint Swelling, Pedal Edema - Neurological Exam Neurological Exam: Alert, Awake, Normal Gait, Oriented x3 - Psychiatric Exam Psychiatric exam: Normal Affect, Normal Mood - Skin Skin Exam: Intact, Normal Color Assessment and Plan - Assessment and Plan (Free Text) Assessment: Patient with ESRD on HD- post fluid overload, CAD CABG will go for cath today IDDM with episodes of hypoglycemia with 75/25- will change Insulin - and monitor continue sliding TLC diet CAD ongong cardiac evaluation Debility- refuses subacute prefer home
[2017-03-25] MEDS ORDERED: (Lantus) Insulin Glargine, Recombinant SC SCH ×2 (10:00)
[2017-03-25] MEDS: Metoprolol Succinate 25 mg XL Tab PO SCH (10:00)
[2017-03-25] MEDS: Pantoprazole 40 mg EC Tab PO SCH (10:00)
--- NOTE | 2017-03-25 11:10 | CARD ---
APPROVED REPORT EKG Measurement Heart [id number] <Conclusion> Atrial fibrillation with rapid ventricular response Left axis deviation Nonspecific ST and T wave abnormality Prolonged QT Abnormal ECG
--- NOTE | 2017-03-25 11:57 | CP.PCM.PN ---
Subjective - Date & Time of Evaluation Date of Evaluation: 03/25/17 Time of Evaluation: 11:55 - Subjective Subjective: seen and examined c/o blood in urine- chronic but worse w/ anticoagulation. denies any chest pain +sob no cough fevers chills dizziness headache rash nausea vomiting diarrhea Objective - Vital Signs/Intake and Output Vital Signs (last 24 hours): Temp Pulse Resp BP Pulse Ox 97.3 F L 91 H 20 126/83 96 03/25/17 07:39 03/25/17 07:39 03/25/17 07:39 03/25/17 07:39 03/25/17 07:39 Intake and Output: 03/25/17 03/25/17 06:59 18:59 Intake Total 300 Balance 300 - Medications Medications: Current Medications Alprazolam (Xanax) 0.25 mg PO Q12H [facility] Stop: 03/27/17 21:01 Last Admin: 03/25/17 11:29 Dose: Not Given Diltiazem HCl (Cardizem) 60 mg PO Q8 [facility] Last Admin: 03/25/17 05:15 Dose: 60 mg Glipizide (Glucotrol) 5 mg PO DAILY [facility] Last Admin: 03/25/17 10:00 Dose: Not Given Insulin Aspart (Novolog) 0 unit SC [facility] PRN Reason: Protocol Last Admin: 03/25/17 07:30 Dose: 4 unit Insulin Glargine (Lantus) 15 unit SC DAILY [facility] Last Admin: 03/25/17 11:31 Dose: 10 unit Metoprolol Succinate (Toprol Xl) 25 mg PO DAILY [facility] Last Admin: 03/25/17 10:00 Dose: Not Given Pantoprazole Sodium (Protonix Ec Tab) 40 mg PO DAILY [facility] Last Admin: 03/25/17 10:00 Dose: Not Given Rosuvastatin Calcium (Crestor) 5 mg PO HS [facility] Last Admin: 03/24/17 22:18 Dose: 5 mg - Labs Labs: 03/24/17 06:13 03/24/17 06:13 PT 11.8 SECONDS (9.7-12.2) 03/24/17 06:13 INR 1.1 03/24/17 06:13 APTT 33 SECONDS (21-34) 03/20/17 16:45 - Constitutional Appears: Non-toxic, No Acute Distress, Chronically Ill - Head Exam Head Exam: NORMAL INSPECTION - Eye Exam Eye Exam: Normal appearance - ENT Exam ENT Exam: Mucous Membranes Moist, Normal Exam - Neck Exam Neck Exam: Normal Inspection - Respiratory Exam Respiratory Exam: Clear to Ausculation Bilateral, NORMAL BREATHING PATTERN - Cardiovascular Exam Cardiovascular Exam: REGULAR RHYTHM, RRR - GI/Abdominal Exam GI & Abdominal Exam: Distended, Soft - Extremities Exam Extremities Exam: Normal Inspection, Pedal Edema (lue avf) Assessment and Plan (1) Atrial fibrillation Status: Acute (2) Chest pain Status: Acute (3) Congestive heart failure Status: Acute (4) Prostate CA Status: Acute (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
[2017-03-25] MEDS ORDERED: Midazolam 2 MG/2 ML VIAL ONE (14:33)
[2017-03-25] MEDS ORDERED: Iodixanol 320 MG/ML 200 ML BOTTLE IV ONE (14:41)
[2017-03-25] MEDS ORDERED: (Lantus) Insulin Glargine, Recombinant SC ONE (16:53)
--- NOTE | 2017-03-25 18:16 | CP.PCM.PN ---
Subjective - Date & Time of Evaluation Date of Evaluation: 03/25/17 Time of Evaluation: 18:14 - Subjective Subjective: Patient s/p Cardiac cath RCA graft has 100% occlusion Needs [place] RCA interevntion as out patient Low EF (30%) Will get LifeVest Possible discharge tomorrow after HD Review of Systems - Constitutional Constitutional: absent: Fatigue, Fever - EENT Eyes: absent: Other Visual Disturbances Ears: absent: Abnormal Hearing, Disequilibrium Nose/Mouth/Throat: absent: Nasal Congestion, Sinus Pain, Dysphagia - Cardiovascular Cardiovascular: absent: Chest Pain - Respiratory Respiratory: absent: Cough, Chest Congestion - Gastrointestinal Gastrointestinal: absent: Abdominal Pain, Diarrhea, Vomiting - Genitourinary Genitourinary: absent: Dysuria, Flank Pain - Musculoskeletal Musculoskeletal: absent: Abnormal Gait, Muscle Cramps - Integumentary Integumentary: absent: Rash, Skin Ulcer, Sores - Neurological Neurological: absent: Abnormal Hearing, Abnormal Movements, Behavioral Changes, Convulsions, Syncope - Psychiatric Psychiatric: absent: Behavioral Changes, Confusion, Depression - Endocrine Endocrine: Fatigue - Hematologic/Lymphatic Hematologic: absent: Easy Bleeding, Easy Bruising Physical Exam - Constitutional Appears: Non-toxic (is conversant aware of condition) - Head Exam Head Exam: ATRAUMATIC, NORMOCEPHALIC - Eye Exam Eye Exam: absent: Nystagmus - ENT Exam ENT Exam: Mucous Membranes Moist - Respiratory Exam Respiratory Exam: Decreased Breath Sounds, NORMAL BREATHING PATTERN - Cardiovascular Exam Cardiovascular Exam: REGULAR RHYTHM - GI/Abdominal Exam GI & Abdominal Exam: Normal Bowel Sounds, Soft. absent: Tenderness - Neurological Exam Neurological exam: Alert, Normal Gait, Oriented x3 - Psychiatric Exam Psychiatric exam: Normal Affect, Normal Mood - Skin Skin Exam: Intact, Normal Color Objective - Vital Signs/Intake and Output Vital Signs (last 24 hours): Temp Pulse Resp BP Pulse Ox 97.8 F 120 H 20 99/40 L 98 03/25/17 17:20 03/25/17 17:20 03/25/17 17:20 03/25/17 17:20 03/25/17 17:20 Intake and Output: 03/25/17 03/25/17 06:59 18:59 Intake Total 300 100 Balance 300 100 - Medications Medications: Current Medications Alprazolam (Xanax) 0.25 mg PO Q12H [facility] Stop: 03/27/17 21:01 Last Admin: 03/25/17 11:29 Dose: Not Given Diltiazem HCl (Cardizem) 60 mg PO Q8 [facility] Last Admin: 03/25/17 13:44 Dose: Not Given Glipizide (Glucotrol) 5 mg PO DAILY [facility] Last Admin: 03/25/17 10:00 Dose: Not Given Insulin Aspart (Novolog) 0 unit SC [facility] PRN Reason: Protocol Last Admin: 03/25/17 17:18 Dose: 10 unit Insulin Glargine (Lantus) 25 unit SC HS [facility] Metoprolol Succinate (Toprol Xl) 25 mg PO DAILY [facility] Last Admin: 03/25/17 10:00 Dose: Not Given Pantoprazole Sodium (Protonix Ec Tab) 40 mg PO DAILY [facility] Last Admin: 03/25/17 10:00 Dose: Not Given Rosuvastatin Calcium (Crestor) 5 mg PO HS [facility] Last Admin: 03/24/17 22:18 Dose: 5 mg - Labs Labs: 03/24/17 06:13 03/24/17 06:13 PT 11.8 SECONDS (9.7-12.2) 03/24/17 06:13 INR 1.1 03/24/17 06:13 APTT 33 SECONDS (21-34) 03/20/17 16:45 Assessment and Plan - Assessment and Plan (Free Text) Assessment: 76 y.o. male with PMh IDDM2 Hypertension ESRD on HD Recurrent Prostate ca with metastasis COPD CAD s/p CABG history of AFIB
[2017-03-25] MEDS ORDERED: Digoxin 500 mcg/2ml (0.5 mg/2ml) Inj IVP ONE (22:55)
[2017-03-25 23:07] VITALS: PULSE 138
[2017-03-26] MEDS: (Novolog) Insulin Aspart, Recombinant 100 u/ml 10 ml vial SC SCH ×4 (07:50→21:38)
--- NOTE | 2017-03-26 08:21 | CP.PCM.PN ---
Subjective - Date & Time of Evaluation Date of Evaluation: 03/26/17 Time of Evaluation: 00:30 - Subjective Subjective: Patient seen, just had dialysis, dizzy, been complaining of neck stiff neck. pain on turning head no lesion no fever, no swallowing problem no vomiting reports poor appetite Sugar monitoring high- Insulin adjustment Clarification of Insulin dose, Objective - Vital Signs/Intake and Output Vital Signs (last 24 hours): Temp Pulse Resp BP Pulse Ox 98.2 F 106 H 20 121/52 L 97 03/26/17 05:51 03/26/17 05:51 03/26/17 05:51 03/26/17 05:51 03/26/17 05:51 Intake and Output: 03/26/17 03/26/17 06:59 18:59 Intake Total 240 Balance 240 - Medications Medications: Current Medications Alprazolam (Xanax) 0.25 mg PO Q12H [facility] Stop: 03/27/17 21:01 Last Admin: 03/25/17 21:05 Dose: 0.25 mg Diltiazem HCl (Cardizem) 60 mg PO Q8 [facility] Last Admin: 03/26/17 06:11 Dose: 60 mg Glipizide (Glucotrol) 5 mg PO DAILY [facility] Last Admin: 03/25/17 10:00 Dose: Not Given Insulin Aspart (Novolog) 0 unit SC [facility] PRN Reason: Protocol Last Admin: 03/26/17 07:50 Dose: 4 unit Insulin Glargine (Lantus) 25 unit SC [facility] Metoprolol Succinate (Toprol Xl) 25 mg PO DAILY [facility] Last Admin: 03/25/17 10:00 Dose: Not Given Pantoprazole Sodium (Protonix Ec Tab) 40 mg PO DAILY [facility] Last Admin: 03/25/17 10:00 Dose: Not Given Rosuvastatin Calcium (Crestor) 5 mg PO HS [facility] Last Admin: 03/25/17 21:05 Dose: 5 mg - Labs Labs: 03/24/17 06:13 03/24/17 06:13 PT 11.8 SECONDS (9.7-12.2) 03/24/17 06:13 INR 1.1 03/24/17 06:13 APTT 33 SECONDS (21-34) 03/20/17 16:45 - Constitutional Appears: Non-toxic, Chronically Ill - Head Exam Head Exam: ATRAUMATIC - Eye Exam Eye Exam: Normal appearance. absent: Nystagmus - ENT Exam ENT Exam: Mucous Membranes Moist (neck pain on movement no lesion no rash ) - Neck Exam Neck Exam: absent: Meningismus (pain on neck movement pain limits) - Respiratory Exam Respiratory Exam: NORMAL BREATHING PATTERN - Cardiovascular Exam Cardiovascular Exam: REGULAR RHYTHM - GI/Abdominal Exam GI & Abdominal Exam: Soft, Normal Bowel Sounds. absent: Tenderness - Extremities Exam Extremities Exam: Full ROM. absent: Joint Swelling, Pedal Edema - Back Exam Back Exam: Full ROM. absent: tenderness - Neurological Exam Neurological Exam: Alert, Awake, Normal Gait, Oriented x3 - Psychiatric Exam Psychiatric exam: Normal Affect, Normal Mood - Skin Skin Exam: Intact, Normal Color Assessment and Plan - Assessment and Plan (Free Text) Assessment: Patient with ESRD on HD- now with acute stiff neck- no injury will try patches, monitor CAD s/p CABG years ago, recent cath abnormal life vest a sper cardio- in progress IDDM- with poor appetite, fluctuating sugar- Insulin adjustment and continue accucheck Hypertension- on medications plan for home adeel ready refuses subacute
--- NOTE | 2017-03-26 12:50 | CP.PCM.PN ---
Subjective - Date & Time of Evaluation Date of Evaluation: 03/26/17 Time of Evaluation: 12:47 - Subjective Subjective: Seen post dialysis now; UF 1500ml s/p cardiac cath; lifevest ordered has had poor appetite no other complaint Objective - Vital Signs/Intake and Output Vital Signs (last 24 hours): Temp Pulse Resp BP Pulse Ox 97.4 F L 64 18 130/57 L 98 03/26/17 12:16 03/26/17 12:16 03/26/17 12:16 03/26/17 12:16 03/26/17 12:16 Intake and Output: 03/26/17 03/26/17 06:59 18:59 Intake Total 240 Balance 240 - Medications Medications: Current Medications Alprazolam (Xanax) 0.25 mg PO Q12H [facility] Stop: 03/27/17 21:01 Last Admin: 03/25/17 21:05 Dose: 0.25 mg Diltiazem HCl (Cardizem) 60 mg PO Q8 [facility] Last Admin: 03/26/17 06:11 Dose: 60 mg Glipizide (Glucotrol) 5 mg PO DAILY [facility] Last Admin: 03/25/17 10:00 Dose: Not Given Insulin Aspart (Novolog) 0 unit SC [facility] PRN Reason: Protocol Last Admin: 03/26/17 07:50 Dose: 4 unit Insulin Glargine (Lantus) 25 unit SC [facility] Metoprolol Succinate (Toprol Xl) 25 mg PO DAILY [facility] Last Admin: 03/25/17 10:00 Dose: Not Given Pantoprazole Sodium (Protonix Ec Tab) 40 mg PO DAILY [facility] Last Admin: 03/25/17 10:00 Dose: Not Given Rosuvastatin Calcium (Crestor) 5 mg PO [facility] Last Admin: 03/25/17 21:05 Dose: 5 mg - Labs Labs: 03/24/17 06:13 03/24/17 06:13 PT 11.8 SECONDS (9.7-12.2) 03/24/17 06:13 INR 1.1 03/24/17 06:13 APTT 33 SECONDS (21-34) 03/20/17 16:45 - Constitutional Appears: No Acute Distress, Chronically Ill - Head Exam Head Exam: ATRAUMATIC, NORMAL INSPECTION - Eye Exam Eye Exam: EOMI, Normal appearance - Neck Exam Neck Exam: Normal Inspection. absent: Tenderness - Respiratory Exam Respiratory Exam: Clear to Ausculation Bilateral, NORMAL BREATHING PATTERN - GI/Abdominal Exam GI & Abdominal Exam: Soft. absent: Tenderness - Extremities Exam Extremities Exam: absent: Pedal Edema, Tenderness - Neurological Exam Neurological Exam: Awake, CN II-XII Intact, Oriented x3 - Skin Skin Exam: Dry, Warm Assessment and Plan (1) Prostate CA Status: Acute (2) Type 2 diabetes mellitus with diabetic nephropathy Status: Acute (3) Atrial fibrillation Status: Acute (4) CHF (congestive heart failure) Status: Acute (5) COPD (chronic obstructive pulmonary disease) with emphysema Status: Chronic (6) ESRD (end stage renal disease) on dialysis Status: Chronic - Assessment and Plan (Free Text) Plan: Continue moderate UF with dialysis for CHF prevention await lifevest trial [facility]
[2017-03-26] MEDS: Pantoprazole 40 mg EC Tab PO SCH (13:00)
[2017-03-26] MEDS: Metoprolol Succinate 25 mg XL Tab PO SCH (13:00)
[2017-03-26] MEDS: Lidocaine 5% Patch TD SCH (14:09)
[2017-03-26] MEDS: Megestrol Acetate 40 mg/ml Cup PO SCH (14:12)
--- NOTE | 2017-03-26 21:23 | PCM.URO ---
Urology Progress Note - General General: Tolerating Diet - Subjective Abdominal Pain: Yes Flank Pain: No Hematuria: Yes Chest Pain: No Fever & Chills: No - Objective Lab Studies: Reviewed Lab Results Last 24 Hours: Laboratory Results - last 24 hr 03/25/17 03/26/17 03/26/17 21:21 06:06 16:07 POC Glucose (mg/dL) 253 H 263 H 280 H 03/26/17 21:14 POC Glucose (mg/dL) 407 H* Intake & Output: Intake & Output 03/26/17 03/26/17 03/27/17 06:59 18:59 06:59 Intake Total 240 300 Balance 240 300 Weight 140 lb 0.5 oz Intake: Oral 240 300 Other: # Voids Urine, Voided 1 # Bowel Movements 0 0 Vital Signs: Vital Signs - 24 hr 03/25/17 03/25/17 03/25/17 22:00 23:00 23:12 Temperature 98.8 F 98.3 F Pulse Rate 128 H 143 H 159 H Pulse Rate [ Apical] Respiratory 20 20 20 Rate Blood Pressure 94/48 L 109/52 L 113/72 Blood Pressure [Left Arm] O2 Sat by Pulse 96 97 Oximetry 03/25/17 03/25/17 03/26/17 23:15 23:16 01:15 Temperature Pulse Rate 144 H 128 H 144 H Pulse Rate [ Apical] Respiratory 20 Rate Blood Pressure 130/70 Blood Pressure [Left Arm] O2 Sat by Pulse 98 Oximetry 03/26/17 03/26/17 03/26/17 02:20 02:31 04:43 Temperature Pulse Rate 121 H 106 H 101 H Pulse Rate [ Apical] Respiratory Rate Blood Pressure 113/52 L Blood Pressure [Left Arm] O2 Sat by Pulse 98 Oximetry 03/26/17 03/26/17 03/26/17 05:51 07:00 07:15 Temperature 98.2 F 97.7 F Pulse Rate 106 H 93 H 90 Pulse Rate [ Apical] Respiratory 20 20 Rate Blood Pressure 121/52 L 123/58 L Blood Pressure [Left Arm] O2 Sat by Pulse 97 99 Oximetry 03/26/17 03/26/17 03/26/17 08:55 09:04 09:10 Temperature 97.6 F 97.6 F Pulse Rate 60 Pulse Rate [ 60 Apical] Respiratory 16 18 Rate Blood Pressure 114/87 Blood Pressure 106/52 L 110/57 L [Left Arm] O2 Sat by Pulse 18 L Oximetry 03/26/17 03/26/17 03/26/17 09:25 09:40 10:10 Temperature Pulse Rate Pulse Rate [ Apical] Respiratory Rate Blood Pressure Blood Pressure 127/55 L 96/60 L 103/65 [Left Arm] O2 Sat by Pulse Oximetry 03/26/17 03/26/17 03/26/17 10:40 11:25 12:10 Temperature Pulse Rate Pulse Rate [ Apical] Respiratory Rate Blood Pressure Blood Pressure 121/56 L 127/79 130/57 L [Left Arm] O2 Sat by Pulse Oximetry 03/26/17 03/26/17 03/26/17 12:30 13:04 15:13 Temperature 97.4 F L 98.0 F 98.1 F Pulse Rate 89 89 Pulse Rate [ 64 Apical] Respiratory 18 18 20 Rate Blood Pressure 90/59 L 111/56 L Blood Pressure 125/48 L [Left Arm] O2 Sat by Pulse 98 100 96 Oximetry 03/26/17 16:08 Temperature Pulse Rate 106 H Pulse Rate [ Apical] Respiratory Rate Blood Pressure Blood Pressure [Left Arm] O2 Sat by Pulse Oximetry - Physical Exam Abdominal Exam: Soft, Non-Tender, Non-Distended Back: No CVA Tenderness Genitalia: Without Inflammation Urinary Catheter Draining Well: Yes Urine Color: Dark Red - Male Phallus: Normal Scrotum: Normal (Imp: Hematuria Castrate resistant prostate cancer, with bladder and urethal metastasis Hx of prostatectomy, radiotherapy Rec/plan: culture psa, testosterone dialysis poss cystoscopy t/f) - Date & Time of Note Date: 03/26/17 Time: 10:40
[2017-03-26] MEDS ORDERED: (Lantus) Insulin Glargine, Recombinant SC SCH ×2 (22:00)
[2017-03-26 23:23] LABS: URINE BILIRUBIN NEGATIVE (NEGATIVE); URINE GLUCOSE (UA) 2+ mg/dL (Normal); URINE KETONE TRACE mg/dL (NEGATIVE); URINE LEUKOCYTE ESTERASE NEG Leu/uL (Negative); URINE PROTEIN 1+ mg/dL (NEGATIVE); URINE UROBILINOGEN NORMAL mg/dL (0.2-1.0)
--- NOTE | 2017-03-26 23:45 | CP.PCM.PN ---
Subjective - Date & Time of Evaluation Date of Evaluation: 03/26/17 Time of Evaluation: 15:10 - Subjective Subjective: Patient seen and evaluated Comfortable patient started on ASA and Plavix and watch for bleeding F/U Cardio clinic in 1 week. If patient can tolerate (Hx of GIB) will stent RCA Review of Systems - Constitutional Constitutional: absent: Fatigue, Fever - EENT Eyes: absent: Other Visual Disturbances Ears: absent: Abnormal Hearing, Disequilibrium Nose/Mouth/Throat: absent: Nasal Congestion, Sinus Pain, Dysphagia - Cardiovascular Cardiovascular: absent: Chest Pain - Respiratory Respiratory: absent: Cough, Chest Congestion - Gastrointestinal Gastrointestinal: absent: Abdominal Pain, Diarrhea, Vomiting - Genitourinary Genitourinary: absent: Dysuria, Flank Pain - Musculoskeletal Musculoskeletal: absent: Abnormal Gait, Muscle Cramps - Integumentary Integumentary: absent: Rash, Skin Ulcer, Sores - Neurological Neurological: absent: Abnormal Hearing, Abnormal Movements, Behavioral Changes, Convulsions, Syncope - Psychiatric Psychiatric: absent: Behavioral Changes, Confusion, Depression - Endocrine Endocrine: Fatigue - Hematologic/Lymphatic Hematologic: absent: Easy Bleeding, Easy Bruising Physical Exam - Constitutional Appears: Non-toxic (is conversant aware of condition) - Head Exam Head Exam: ATRAUMATIC, NORMOCEPHALIC - Eye Exam Eye Exam: absent: Nystagmus - ENT Exam ENT Exam: Mucous Membranes Moist - Respiratory Exam Respiratory Exam: Decreased Breath Sounds, NORMAL BREATHING PATTERN - Cardiovascular Exam Cardiovascular Exam: REGULAR RHYTHM - GI/Abdominal Exam GI & Abdominal Exam: Normal Bowel Sounds, Soft. absent: Tenderness - Neurological Exam Neurological exam: Alert, Normal Gait, Oriented x3 - Psychiatric Exam Psychiatric exam: Normal Affect, Normal Mood - Skin Skin Exam: Intact, Normal Color Objective - Vital Signs/Intake and Output Vital Signs (last 24 hours): Temp Pulse Resp BP Pulse Ox 98.1 F 74 20 117/74 96 03/26/17 15:13 03/26/17 21:41 03/26/17 21:41 03/26/17 21:41 03/26/17 15:13 Intake and Output: 03/26/17 03/27/17 18:59 06:59 Intake Total 300 240 Output Total 30 Balance 300 210 - Medications Medications: Current Medications Alprazolam (Xanax) 0.25 mg PO Q12H [facility] Stop: 03/27/17 21:01 Last Admin: 03/26/17 21:37 Dose: 0.25 mg Ciprofloxacin (Cipro) 250 mg PO DAILY [facility] Last Admin: 03/26/17 21:36 Dose: 250 mg Clopidogrel Bisulfate (Plavix) 75 mg PO DAILY [facility] Diltiazem HCl (Cardizem) 60 mg PO Q8 [facility] Last Admin: 03/26/17 21:40 Dose: 60 mg Famotidine (Pepcid) 20 mg PO DAILY [facility] Glipizide (Glucotrol) 5 mg PO DAILY [facility] Last Admin: 03/26/17 13:00 Dose: 5 mg Insulin Aspart (Novolog) 0 unit SC ACHS [facility] PRN Reason: Protocol Last Admin: 03/26/17 21:38 Dose: 4 unit Insulin Glargine (Lantus) 30 unit SC HS [facility] Last Admin: 03/26/17 21:37 Dose: 30 units Lidocaine (Lidoderm) 1 ea TD DAILY [facility] Last Admin: 03/26/17 14:09 Dose: 1 ea Megestrol Acetate (Megace) 400 mg PO DAILY [facility] Last Admin: 03/26/17 14:12 Dose: 400 mg Metoprolol Succinate (Toprol Xl) 25 mg PO DAILY [facility] Last Admin: 03/26/17 13:00 Dose: 25 mg Rosuvastatin Calcium (Crestor) 5 mg PO HS [facility] Last Admin: 03/26/17 21:37 Dose: 5 mg - Labs Labs: 03/24/17 06:13 03/24/17 06:13 PT 11.8 SECONDS (9.7-12.2) 03/24/17 06:13 INR 1.1 03/24/17 06:13 APTT 33 SECONDS (21-34) 03/20/17 16:45 Assessment and Plan - Assessment and Plan (Free Text) Assessment: 76 y.o. male with PMh IDDM2 Hypertension ESRD on HD Recurrent Prostate ca with metastasis COPD CAD s/p CABG history of AFIB
[2017-03-27 00:26] LABS: RBC URINE 11684 /hpf (0-3); URINE BACTERIA OCC (<OCC); URINE BLOOD 3+ (NEGATIVE); URINE COLOR RED (YELLOW)
[2017-03-27] MEDS: (Novolog) Insulin Aspart, Recombinant 100 u/ml 10 ml vial SC SCH ×4 (08:11→21:30)
[2017-03-27] MEDS: Megestrol Acetate 40 mg/ml Cup PO SCH (09:10)
[2017-03-27] MEDS: Metoprolol Succinate 25 mg XL Tab PO SCH (09:10)
[2017-03-27] MEDS: Lidocaine 5% Patch TD SCH (09:16)
--- NOTE | 2017-03-27 10:39 | CP.PCM.PN ---
Subjective - Date & Time of Evaluation Date of Evaluation: 03/27/17 Time of Evaluation: 10:37 - Subjective Subjective: Feels better now still weak, c/o neck discomfort stable dialysis 03/26 started on megace for decreased appetite Objective - Vital Signs/Intake and Output Vital Signs (last 24 hours): Temp Pulse Resp BP Pulse Ox 97.9 F 88 20 112/62 98 03/27/17 08:19 03/27/17 08:19 03/27/17 08:19 03/27/17 08:19 03/27/17 08:19 Intake and Output: 03/27/17 03/27/17 06:59 18:59 Intake Total 240 Output Total 30 Balance 210 - Medications Medications: Current Medications Alprazolam (Xanax) 0.25 mg PO Q12H [facility] Stop: 03/27/17 21:01 Last Admin: 03/27/17 08:15 Dose: 0.25 mg Ciprofloxacin (Cipro) 250 mg PO DAILY [facility] Last Admin: 03/27/17 09:10 Dose: 250 mg Clopidogrel Bisulfate (Plavix) 75 mg PO DAILY [facility] Last Admin: 03/27/17 09:13 Dose: 75 mg Diltiazem HCl (Cardizem) 60 mg PO Q8 [facility] Last Admin: 03/27/17 06:27 Dose: 60 mg Famotidine (Pepcid) 20 mg PO DAILY [facility] Last Admin: 03/27/17 09:13 Dose: 20 mg Glipizide (Glucotrol) 5 mg PO DAILY [facility] Last Admin: 03/27/17 09:10 Dose: 5 mg Insulin Aspart (Novolog) 0 unit SC [facility] PRN Reason: Protocol Last Admin: 03/27/17 08:11 Dose: 3 unit Insulin Glargine (Lantus) 30 unit SC HS [facility] Last Admin: 03/26/17 21:37 Dose: 30 units Lidocaine (Lidoderm) 1 ea TD DAILY [facility] Last Admin: 03/27/17 09:16 Dose: 1 ea Megestrol Acetate (Megace) 400 mg PO DAILY [facility] Last Admin: 03/27/17 09:10 Dose: 400 mg Metoprolol Succinate (Toprol Xl) 25 mg PO DAILY [facility] Last Admin: 03/27/17 09:10 Dose: 25 mg Rosuvastatin Calcium (Crestor) 5 mg PO HS [facility] Last Admin: 03/26/17 21:37 Dose: 5 mg - Labs Labs: 03/24/17 06:13 03/24/17 06:13 PT 11.8 SECONDS (9.7-12.2) 03/24/17 06:13 INR 1.1 03/24/17 06:13 APTT 33 SECONDS (21-34) 03/20/17 16:45 - Constitutional Appears: No Acute Distress, Chronically Ill - Head Exam Head Exam: ATRAUMATIC, NORMAL INSPECTION - Eye Exam Eye Exam: EOMI, Normal appearance - Neck Exam Neck Exam: Normal Inspection, Tenderness - Respiratory Exam Respiratory Exam: Clear to Ausculation Bilateral, NORMAL BREATHING PATTERN - Cardiovascular Exam Cardiovascular Exam: Irregular Rhythm, +S1 - GI/Abdominal Exam GI & Abdominal Exam: Soft. absent: Tenderness - Extremities Exam Extremities Exam: Normal Inspection. absent: Tenderness - Neurological Exam Neurological Exam: Alert, CN II-XII Intact - Skin Skin Exam: Dry, Warm Assessment and Plan (1) Prostate CA Status: Acute (2) Type 2 diabetes mellitus with diabetic nephropathy Status: Acute (3) Atrial fibrillation Status: Acute (4) CHF (congestive heart failure) Status: Acute (5) COPD (chronic obstructive pulmonary disease) with emphysema Status: Chronic (6) ESRD (end stage renal disease) on dialysis Status: Chronic - Assessment and Plan (Free Text) Plan: Dialysis MWF with adequate UF follow up for metastatic prostate CA Monitor BP, labs
--- NOTE | 2017-03-27 11:51 | CP.PCM.PN ---
Subjective - Date & Time of Evaluation Date of Evaluation: 03/27/17 Time of Evaluation: 00:00 - Subjective Subjective: Patient seen- neck pain less, afebrile no cough still some hematuria , was seen by urologist-there's plan for cystoscopy Discusssed sugar- has been eating now- is also on hormone therapy for prostate ca, Bowel no complaints ambulates no dizziness no gait abnormality discussed home services Objective - Vital Signs/Intake and Output Vital Signs (last 24 hours): Temp Pulse Resp BP Pulse Ox 97.9 F 88 20 112/62 98 03/27/17 08:19 03/27/17 08:19 03/27/17 08:19 03/27/17 08:19 03/27/17 08:19 Intake and Output: 03/27/17 03/27/17 06:59 18:59 Intake Total 240 Output Total 30 Balance 210 - Medications Medications: Current Medications Alprazolam (Xanax) 0.25 mg PO Q12H [facility] Stop: 03/27/17 21:01 Last Admin: 03/27/17 08:15 Dose: 0.25 mg Ciprofloxacin (Cipro) 250 mg PO DAILY [facility] Last Admin: 03/27/17 09:10 Dose: 250 mg Clopidogrel Bisulfate (Plavix) 75 mg PO DAILY [facility] Last Admin: 03/27/17 09:13 Dose: 75 mg Diltiazem HCl (Cardizem) 60 mg PO Q8 [facility] Last Admin: 03/27/17 06:27 Dose: 60 mg Famotidine (Pepcid) 20 mg PO DAILY [facility] Last Admin: 03/27/17 09:13 Dose: 20 mg Glipizide (Glucotrol) 5 mg PO DAILY [facility] Last Admin: 03/27/17 09:10 Dose: 5 mg Insulin Aspart (Novolog) 0 unit SC ACHS [facility] PRN Reason: Protocol Last Admin: 03/27/17 11:47 Dose: 10 unit Insulin Glargine (Lantus) 30 unit SC HS [facility] Last Admin: 03/26/17 21:37 Dose: 30 units Lidocaine (Lidoderm) 1 ea TD DAILY [facility] Last Admin: 03/27/17 09:16 Dose: 1 ea Megestrol Acetate (Megace) 400 mg PO DAILY [facility] Last Admin: 03/27/17 09:10 Dose: 400 mg Metoprolol Succinate (Toprol Xl) 25 mg PO DAILY [facility] Last Admin: 03/27/17 09:10 Dose: 25 mg Rosuvastatin Calcium (Crestor) 5 mg PO HS [facility] Last Admin: 03/26/17 21:37 Dose: 5 mg - Labs Labs: 03/24/17 06:13 03/24/17 06:13 PT 11.8 SECONDS (9.7-12.2) 03/24/17 06:13 INR 1.1 03/24/17 06:13 APTT 33 SECONDS (21-34) 03/20/17 16:45 - Constitutional Appears: No Acute Distress - Head Exam Head Exam: ATRAUMATIC, NORMOCEPHALIC - Eye Exam Eye Exam: Normal appearance - ENT Exam ENT Exam: Mucous Membranes Moist - Neck Exam Neck Exam: Full ROM. absent: Tenderness - Respiratory Exam Respiratory Exam: Clear to Ausculation Bilateral. absent: Wheezes - Cardiovascular Exam Cardiovascular Exam: REGULAR RHYTHM - GI/Abdominal Exam GI & Abdominal Exam: Soft, Normal Bowel Sounds. absent: Tenderness - Extremities Exam Extremities Exam: Full ROM, Normal Inspection. absent: Pedal Edema - Back Exam Back Exam: absent: tenderness - Neurological Exam Neurological Exam: Alert, Awake, Normal Gait, Oriented x3 - Psychiatric Exam Psychiatric exam: Normal Affect, Normal Mood - Skin Skin Exam: Intact, Normal Color Assessment and Plan - Assessment and Plan (Free Text) Assessment: ESRD on scheduled hemodialysis IDDM- uncontrolled- aappetite picking up, on hormone therapy for prostate ca djusting insiulin, plus sliding scale Debility-Chronic condition- home services referral Hematuria- off heparin and aspirin prostate Ca- for cystoscopy Hypertension- continue same medication CAD with history of CABG-, recent cath- as per cardio A fib controlled Stiff neck- responding with lidoderm patch continue current care
--- NOTE | 2017-03-27 15:11 | CP.PCM.PN ---
<Kathleen Pablo DO - Last Filed: 03/27/17 16:02> Subjective - Date & Time of Evaluation Date of Evaluation: 03/27/17 Time of Evaluation: 16:02 - Subjective Subjective: Cardiology progress note for Dr. Potts Patient seen and examined. Patient states he feels well with no complaints at this time. Patient s/p cath on 03/25/17. Objective - Vital Signs/Intake and Output Vital Signs (last 24 hours): Temp Pulse Resp BP Pulse Ox 98.3 F 67 18 115/55 L 97 03/27/17 13:10 03/27/17 13:10 03/27/17 13:10 03/27/17 13:10 03/27/17 13:10 Intake and Output: 03/27/17 03/27/17 06:59 18:59 Intake Total 240 Output Total 30 Balance 210 - Medications Medications: Current Medications Alprazolam (Xanax) 0.25 mg PO Q12H [facility] Stop: 03/27/17 21:01 Last Admin: 03/27/17 08:15 Dose: 0.25 mg Ciprofloxacin (Cipro) 250 mg PO DAILY [facility] Last Admin: 03/27/17 09:10 Dose: 250 mg Clopidogrel Bisulfate (Plavix) 75 mg PO DAILY [facility] Last Admin: 03/27/17 09:13 Dose: 75 mg Diltiazem HCl (Cardizem) 60 mg PO Q8 [facility] Last Admin: 03/27/17 13:14 Dose: 60 mg Famotidine (Pepcid) 20 mg PO DAILY [facility] Last Admin: 03/27/17 09:13 Dose: 20 mg Glipizide (Glucotrol) 5 mg PO DAILY [facility] Last Admin: 03/27/17 09:10 Dose: 5 mg Insulin Aspart (Novolog) 0 unit SC ACHS [facility] PRN Reason: Protocol Last Admin: 03/27/17 11:47 Dose: 10 unit Insulin Glargine (Lantus) 35 unit SC HS [facility] Lidocaine (Lidoderm) 1 ea TD DAILY [facility] Last Admin: 03/27/17 09:16 Dose: 1 ea Megestrol Acetate (Megace) 400 mg PO DAILY [facility] Last Admin: 03/27/17 09:10 Dose: 400 mg Metoprolol Succinate (Toprol Xl) 25 mg PO DAILY [facility] Last Admin: 03/27/17 09:10 Dose: 25 mg Rosuvastatin Calcium (Crestor) 5 mg PO [facility] Last Admin: 03/26/17 21:37 Dose: 5 mg - Labs Labs: 03/24/17 06:13 03/24/17 06:13 PT 11.8 SECONDS (9.7-12.2) 03/24/17 06:13 INR 1.1 03/24/17 06:13 APTT 33 SECONDS (21-34) 03/20/17 16:45 - Constitutional Appears: No Acute Distress - Head Exam Head Exam: ATRAUMATIC, NORMOCEPHALIC - Eye Exam Eye Exam: EOMI - ENT Exam ENT Exam: Mucous Membranes Moist - Respiratory Exam Respiratory Exam: NORMAL BREATHING PATTERN - Cardiovascular Exam Cardiovascular Exam: REGULAR RHYTHM, +S1, +S2 - GI/Abdominal Exam GI & Abdominal Exam: Soft - Extremities Exam Extremities Exam: Normal Inspection - Neurological Exam Neurological Exam: Alert, Awake - Psychiatric Exam Psychiatric exam: Normal Affect - Skin Skin Exam: Warm Assessment and Plan - Assessment and Plan (Free Text) Assessment: 76 year old male with PMHx DM, ESRD on HD, COPD, Prostate cancer, CABG, A. fib, who presents with worsening dyspnea CAD with History of CABG Hx of CABG with 4 vessel disease s/p cath 03/25 with abnormal results: RCA graft has 100% occlusion Needs [place] RCA intervention as outpatient Low EF (30%) patient to receive Life Vest prior to discharge Will hold Plavix for urologic procedure patient low risk for procedure from cardiac standpoint Plavix to be resumed after procedure F/U Cardio clinic in 1 week If patient can tolerate (Hx of GIB) will stent RCA Plan as per Dr. Potts <Jonathan Potts - Last Filed: 03/27/17 21:22> Objective - Vital Signs/Intake and Output Vital Signs (last 24 hours): Temp Pulse Resp BP Pulse Ox 97.8 F 79 20 98/50 L 97 03/27/17 15:00 03/27/17 15:00 03/27/17 15:00 03/27/17 15:00 03/27/17 15:00 Intake and Output: 03/27/17 03/28/17 18:59 06:59 Intake Total 280 Balance 280 - Medications Medications: Current Medications Ciprofloxacin (Cipro) 250 mg PO DAILY [facility] Last Admin: 03/27/17 09:10 Dose: 250 mg Clopidogrel Bisulfate (Plavix) 75 mg PO DAILY [facility] Last Admin: 03/27/17 09:13 Dose: 75 mg Diltiazem HCl (Cardizem) 60 mg PO Q8 [facility] Last Admin: 03/27/17 13:14 Dose: 60 mg Famotidine (Pepcid) 20 mg PO DAILY [facility] Last Admin: 03/27/17 09:13 Dose: 20 mg Glipizide (Glucotrol) 5 mg PO DAILY [facility] Last Admin: 03/27/17 09:10 Dose: 5 mg Insulin Aspart (Novolog) 0 unit SC [facility] PRN Reason: Protocol Last Admin: 03/27/17 16:40 Dose: Not Given Insulin Glargine (Lantus) 35 unit SC HS [facility] Lidocaine (Lidoderm) 1 ea TD DAILY [facility] Last Admin: 03/27/17 09:16 Dose: 1 ea Megestrol Acetate (Megace) 400 mg PO DAILY [facility] Last Admin: 03/27/17 09:10 Dose: 400 mg Metoprolol Succinate (Toprol Xl) 25 mg PO DAILY [facility] Last Admin: 03/27/17 09:10 Dose: 25 mg Rosuvastatin Calcium (Crestor) 5 mg PO HS [facility] Last Admin: 03/26/17 21:37 Dose: 5 mg - Labs Labs: 03/24/17 06:13 03/24/17 06:13 PT 11.8 SECONDS (9.7-12.2) 03/24/17 06:13 INR 1.1 03/24/17 06:13 APTT 33 SECONDS (21-34) 03/20/17 16:45 Assessment and Plan - Assessment and Plan (Free Text) Assessment: Patient seen and evaluated personally by me Plan of care documented d/w the patient
[2017-03-27] MEDS: (Lantus) Insulin Glargine, Recombinant SC SCH ×2 (21:31→21:37)
[2017-03-27 22:18] LABS: POTASSIUM 3.6 mmol/L (3.6-5.2)
[2017-03-28] MEDS: (Novolog) Insulin Aspart, Recombinant 100 u/ml 10 ml vial SC SCH ×4 (08:01→21:42)
--- NOTE | 2017-03-28 08:28 | CP.PCM.PN ---
Subjective - Date & Time of Evaluation Date of Evaluation: 03/28/17 Time of Evaluation: 07:30 - Subjective Subjective: Patient seen, pain is improving he is NPO for cystoscopy today Bowel is fine appetite is good Discussion of condition and plan patient is aware he is on scheduled HD Objective - Vital Signs/Intake and Output Vital Signs (last 24 hours): Temp Pulse Resp BP Pulse Ox 98.8 F 78 20 116/56 L 99 03/28/17 07:46 03/28/17 07:46 03/28/17 07:46 03/28/17 07:46 03/28/17 07:46 Intake and Output: 03/28/17 03/28/17 06:59 18:59 Intake Total 300 Balance 300 - Medications Medications: Current Medications Ciprofloxacin (Cipro) 250 mg PO DAILY [facility] Last Admin: 03/27/17 09:10 Dose: 250 mg Clopidogrel Bisulfate (Plavix) 75 mg PO DAILY [facility] Last Admin: 03/27/17 09:13 Dose: 75 mg Diltiazem HCl (Cardizem) 60 mg PO Q8 [facility] Last Admin: 03/28/17 05:48 Dose: 60 mg Famotidine (Pepcid) 20 mg PO DAILY [facility] Last Admin: 03/27/17 09:13 Dose: 20 mg Glipizide (Glucotrol) 5 mg PO DAILY [facility] Last Admin: 03/27/17 09:10 Dose: 5 mg Insulin Aspart (Novolog) 0 unit SC [facility] PRN Reason: Protocol Last Admin: 03/28/17 08:01 Dose: Not Given Insulin Glargine (Lantus) 35 unit SC [facility] Last Admin: 03/27/17 21:37 Dose: Not Given Lidocaine (Lidoderm) 1 ea TD DAILY [facility] Last Admin: 03/27/17 09:16 Dose: 1 ea Megestrol Acetate (Megace) 400 mg PO DAILY [facility] Last Admin: 03/27/17 09:10 Dose: 400 mg Metoprolol Succinate (Toprol Xl) 25 mg PO DAILY [facility] Last Admin: 03/27/17 09:10 Dose: 25 mg Rosuvastatin Calcium (Crestor) 5 mg PO HS [facility] Last Admin: 03/27/17 21:30 Dose: 5 mg - Labs Labs: 03/24/17 06:13 03/27/17 22:00 PT 11.8 SECONDS (9.7-12.2) 03/24/17 06:13 INR 1.1 03/24/17 06:13 APTT 33 SECONDS (21-34) 03/20/17 16:45 - Constitutional Appears: Non-toxic - Head Exam Head Exam: ATRAUMATIC, NORMOCEPHALIC - Eye Exam Eye Exam: Normal appearance - ENT Exam ENT Exam: Mucous Membranes Moist - Neck Exam Neck Exam: Full ROM. absent: Tenderness (better now ) - Respiratory Exam Respiratory Exam: Clear to Ausculation Bilateral, NORMAL BREATHING PATTERN - Cardiovascular Exam Cardiovascular Exam: REGULAR RHYTHM - GI/Abdominal Exam GI & Abdominal Exam: Soft, Normal Bowel Sounds. absent: Tenderness - Extremities Exam Extremities Exam: Full ROM, Normal Inspection - Back Exam Back Exam: absent: tenderness - Neurological Exam Neurological Exam: Alert, Awake, Normal Gait, Oriented x3 - Psychiatric Exam Psychiatric exam: Normal Affect, Normal Mood - Skin Skin Exam: Intact, Normal Color Assessment and Plan - Assessment and Plan (Free Text) Assessment: Patient with ESRD on scheduled hemodialysis admitted for AFIB with hostory of CAD S/P CABG- cath resulst and further management as outpatient as prer cardio. life vest needed before home staff discussion Hematuria with history of Prostatic cancer- is scehduled for cystoscopy- may plan for home accordingly IDDM2- improving with adjusting Insulin Hypertension- continue medications
[2017-03-28] MEDS: Lidocaine 5% Patch TD SCH (09:02)
[2017-03-28] MEDS: Metoprolol Succinate 25 mg XL Tab PO SCH (10:00)
[2017-03-28] MEDS: Megestrol Acetate 40 mg/ml Cup PO SCH (10:00)
--- NOTE | 2017-03-28 13:29 | CP.PCM.PN ---
Subjective - Date & Time of Evaluation Date of Evaluation: 03/28/17 Time of Evaluation: 13:26 - Subjective Subjective: seen at dialysis- tolerating well, to UF 2000ml due to hematuria- will have cystoscopy- possibly later today better appetite Na decreased to 125- from hyperglycemia and fluid overload no CPs, nausea, vomiting, diarrhea, HAs, fevers, chills Objective - Vital Signs/Intake and Output Vital Signs (last 24 hours): Temp Pulse Resp BP Pulse Ox 96.7 F L 59 L 18 137/68 99 03/28/17 10:15 03/28/17 10:15 03/28/17 10:15 03/28/17 10:15 03/28/17 10:15 Intake and Output: 03/28/17 03/28/17 06:59 18:59 Intake Total 300 Balance 300 - Medications Medications: Current Medications Ciprofloxacin (Cipro) 250 mg PO DAILY [facility] Last Admin: 03/28/17 10:00 Dose: Not Given Clopidogrel Bisulfate (Plavix) 75 mg PO DAILY [facility] Last Admin: 03/27/17 09:13 Dose: 75 mg Diltiazem HCl (Cardizem) 60 mg PO Q8 [facility] Last Admin: 03/28/17 05:48 Dose: 60 mg Famotidine (Pepcid) 20 mg PO DAILY [facility] Last Admin: 03/28/17 10:00 Dose: Not Given Glipizide (Glucotrol) 5 mg PO DAILY [facility] Last Admin: 03/28/17 10:00 Dose: Not Given Insulin Aspart (Novolog) 0 unit SC [facility] PRN Reason: Protocol Last Admin: 03/28/17 11:53 Dose: Not Given Insulin Glargine (Lantus) 35 unit SC [facility] Last Admin: 03/27/17 21:37 Dose: Not Given Lidocaine (Lidoderm) 1 ea TD DAILY [facility] Last Admin: 03/28/17 09:02 Dose: 1 ea Megestrol Acetate (Megace) 400 mg PO DAILY [facility] Last Admin: 03/28/17 10:00 Dose: Not Given Metoprolol Succinate (Toprol Xl) 25 mg PO DAILY [facility] Last Admin: 03/28/17 10:00 Dose: Not Given Rosuvastatin Calcium (Crestor) 5 mg PO HS [facility] Last Admin: 03/27/17 21:30 Dose: 5 mg - Labs Labs: 03/24/17 06:13 03/27/17 22:00 PT 11.8 SECONDS (9.7-12.2) 03/24/17 06:13 INR 1.1 03/24/17 06:13 APTT 33 SECONDS (21-34) 03/20/17 16:45 - Constitutional Appears: No Acute Distress, Chronically Ill - Head Exam Head Exam: ATRAUMATIC, NORMAL INSPECTION - Eye Exam Eye Exam: EOMI, Normal appearance - Neck Exam Neck Exam: Normal Inspection. absent: Tenderness - Respiratory Exam Respiratory Exam: Clear to Ausculation Bilateral, NORMAL BREATHING PATTERN - Cardiovascular Exam Cardiovascular Exam: Irregular Rhythm, +S1 - GI/Abdominal Exam GI & Abdominal Exam: Soft. absent: Tenderness - Extremities Exam Extremities Exam: Normal Inspection. absent: Tenderness - Neurological Exam Neurological Exam: Awake, CN II-XII Intact - Skin Skin Exam: Dry, Warm Assessment and Plan (1) Prostate CA Status: Acute (2) Type 2 diabetes mellitus with diabetic nephropathy Status: Acute (3) Atrial fibrillation Status: Acute (4) CHF (congestive heart failure) Status: Acute (5) COPD (chronic obstructive pulmonary disease) with emphysema Status: Chronic (6) ESRD (end stage renal disease) on dialysis Status: Chronic - Assessment and Plan (Free Text) Plan: UF 2000ml with HD dialysis MWF cystoscopy will arrange for lower UF goal as outpt dialysis eventually
--- NOTE | 2017-03-28 17:22 | PCM.URO ---
Urology Progress Note - General General: No Complaints, Tolerating Diet - Subjective Abdominal Pain: No Flank Pain: No Nausea: No Vomiting: No Voiding Well: No (small amount of urine. Pt notes less hematuria) Good Stream: No Weak Stream: Yes Stone Passed: No Chest Pain: No Fever & Chills: No Other: Pt was scheduled for cystoscopy this PM. However, hemodialysis was begun. - Objective Lab Results Last 24 Hours: Laboratory Results - last 24 hr 03/27/17 03/27/17 03/27/17 21:02 21:11 22:00 Sodium 125 L Potassium 3.6 Chloride 86 L Carbon Dioxide 25 Anion Gap 18 BUN 76 H Creatinine 6.0 H Est GFR ( Amer) 11 Est GFR (Non-Af Amer) 9 POC Glucose (mg/dL) 310 H 312 H Random Glucose 306 H Calcium 8.0 L 03/28/17 03/28/17 03/28/17 06:05 11:08 16:32 Sodium Potassium Chloride Carbon Dioxide Anion Gap BUN Creatinine Est GFR ( Amer) Est GFR (Non-Af Amer) POC Glucose (mg/dL) 205 H 222 H 176 H Random Glucose Calcium Intake & Output: Intake & Output 03/27/17 03/28/17 03/28/17 18:59 06:59 18:59 Intake Total 280 300 0 Balance 280 300 0 Weight 151 lb 0.9 oz Intake: Oral 280 300 0 Other: # Bowel Movements 0 0 Vital Signs: Vital Signs - 24 hr 03/27/17 03/27/17 03/28/17 23:10 23:42 04:34 Temperature 97.6 F Pulse Rate 89 81 81 Pulse Rate [ Apical] Respiratory 20 Rate Blood Pressure 111/59 L Blood Pressure [Left Arm] O2 Sat by Pulse 95 Oximetry 03/28/17 03/28/17 03/28/17 05:47 07:15 07:46 Temperature 98 F 98.8 F Pulse Rate 79 93 H 78 Pulse Rate [ Apical] Respiratory 20 20 Rate Blood Pressure 105/50 L 116/56 L Blood Pressure [Left Arm] O2 Sat by Pulse 99 99 Oximetry 03/28/17 03/28/17 03/28/17 10:15 13:00 13:15 Temperature 96.7 F L 97 F L Pulse Rate 59 L Pulse Rate [ 64 Apical] Respiratory 18 16 Rate Blood Pressure 137/68 Blood Pressure 128/48 L 93/51 L [Left Arm] O2 Sat by Pulse 99 98 Oximetry 03/28/17 03/28/17 03/28/17 13:30 13:45 14:00 Temperature Pulse Rate Pulse Rate [ Apical] Respiratory Rate Blood Pressure Blood Pressure 91/59 L 94/59 L 124/50 L [Left Arm] O2 Sat by Pulse Oximetry 03/28/17 03/28/17 03/28/17 14:30 14:45 15:15 Temperature Pulse Rate Pulse Rate [ Apical] Respiratory Rate Blood Pressure Blood Pressure 100/42 L 106/62 110/57 L [Left Arm] O2 Sat by Pulse Oximetry 03/28/17 03/28/17 15:45 16:00 Temperature 98 F Pulse Rate Pulse Rate [ 66 Apical] Respiratory 16 Rate Blood Pressure Blood Pressure 126/48 L 85/48 L [Left Arm] O2 Sat by Pulse 100 Oximetry - Physical Exam Abdominal Exam: Soft, Non-Tender, Non-Distended Back: No CVA Tenderness Genitalia: Without Inflammation - Plan Additional Information: Imp: hematuria. renal failure. prostate carcinoma. P : cystoscopy resceheduled. Discussed with pt and with head nurse. - Date & Time of Note Date: 03/28/17 Time: 15:30
[2017-03-28 20:03] LABS: BASO # 0.1 K/uL (0.0-0.2); BASO % 0.4 % (0.0-2.0); EOS # 0.2 K/uL (0.0-0.7); HEMATOCRIT 33.2 % (35.0-51.0); LYMPH # 1.1 K/uL (1.0-4.3); LYMPH % 6.3 % (20.0-40.0); MEAN CELL VOLUME 81.9 fL (80.0-94.0); MEAN CORPUSCULAR HEMOGLOBIN 26.6 pg (27.0-31.0); MEAN CORPUSCULAR HGB CONC 32.5 g/dL (33.0-37.0); MEAN PLATELET VOLUME 9.3 fL (7.2-11.7); MONO # 1.9 K/uL (0.0-0.8); MONO % 11.3 % (0.0-10.0); PLATELET COUNT 214 K/uL (130-400); RED CELL DISTRIBUTION WIDTH 19.3 % (11.5-14.5); WHITE BLOOD COUNT 16.8 K/uL (4.8-10.8)
--- NOTE | 2017-03-28 21:37 | CP.PCM.PN ---
Subjective - Date & Time of Evaluation Date of Evaluation: 03/28/17 Time of Evaluation: 16:20 - Subjective Subjective: Patient seen and evaluated No additional cardiac events Patient awaiting LifeVest Review of Systems - Constitutional Constitutional: absent: Fatigue, Fever - EENT Eyes: absent: Other Visual Disturbances Ears: absent: Abnormal Hearing, Disequilibrium Nose/Mouth/Throat: absent: Nasal Congestion, Sinus Pain, Dysphagia - Cardiovascular Cardiovascular: absent: Chest Pain - Respiratory Respiratory: absent: Cough, Chest Congestion - Gastrointestinal Gastrointestinal: absent: Abdominal Pain, Diarrhea, Vomiting - Genitourinary Genitourinary: absent: Dysuria, Flank Pain - Musculoskeletal Musculoskeletal: absent: Abnormal Gait, Muscle Cramps - Integumentary Integumentary: absent: Rash, Skin Ulcer, Sores - Neurological Neurological: absent: Abnormal Hearing, Abnormal Movements, Behavioral Changes, Convulsions, Syncope - Psychiatric Psychiatric: absent: Behavioral Changes, Confusion, Depression - Endocrine Endocrine: Fatigue - Hematologic/Lymphatic Hematologic: absent: Easy Bleeding, Easy Bruising Physical Exam - Constitutional Appears: Non-toxic (is conversant aware of condition) - Head Exam Head Exam: ATRAUMATIC, NORMOCEPHALIC - Eye Exam Eye Exam: absent: Nystagmus - ENT Exam ENT Exam: Mucous Membranes Moist - Respiratory Exam Respiratory Exam: Decreased Breath Sounds, NORMAL BREATHING PATTERN - Cardiovascular Exam Cardiovascular Exam: REGULAR RHYTHM - GI/Abdominal Exam GI & Abdominal Exam: Normal Bowel Sounds, Soft. absent: Tenderness - Neurological Exam Neurological exam: Alert, Normal Gait, Oriented x3 - Psychiatric Exam Psychiatric exam: Normal Affect, Normal Mood - Skin Skin Exam: Intact, Normal Color Objective - Vital Signs/Intake and Output Vital Signs (last 24 hours): Temp Pulse Resp BP Pulse Ox 97.4 F L 110 H 20 111/42 L 96 03/28/17 17:32 03/28/17 17:43 03/28/17 17:32 03/28/17 17:32 03/28/17 17:32 Intake and Output: 03/28/17 03/29/17 18:59 06:59 Intake Total 0 Balance 0 - Medications Medications: Current Medications Ciprofloxacin (Cipro) 250 mg PO DAILY [facility] Last Admin: 03/28/17 10:00 Dose: Not Given Clopidogrel Bisulfate (Plavix) 75 mg PO DAILY [facility] Last Admin: 03/27/17 09:13 Dose: 75 mg Diltiazem HCl (Cardizem) 60 mg PO Q8 [facility] Last Admin: 03/28/17 20:57 Dose: 60 mg Famotidine (Pepcid) 20 mg PO DAILY [facility] Last Admin: 03/28/17 10:00 Dose: Not Given Glipizide (Glucotrol) 5 mg PO DAILY [facility] Last Admin: 03/28/17 10:00 Dose: Not Given Insulin Aspart (Novolog) 0 unit SC [facility] PRN Reason: Protocol Last Admin: 03/28/17 11:53 Dose: Not Given Insulin Glargine (Lantus) 35 unit SC HS [facility] Last Admin: 03/27/17 21:37 Dose: Not Given Lidocaine (Lidoderm) 1 ea TD DAILY [facility] Last Admin: 03/28/17 09:02 Dose: 1 ea Megestrol Acetate (Megace) 400 mg PO DAILY [facility] Last Admin: 03/28/17 10:00 Dose: Not Given Metoprolol Succinate (Toprol Xl) 25 mg PO DAILY [facility] Last Admin: 03/28/17 10:00 Dose: Not Given Rosuvastatin Calcium (Crestor) 5 mg PO HS [facility] Last Admin: 03/27/17 21:30 Dose: 5 mg - Labs Labs: 03/28/17 19:57 03/27/17 22:00 PT 11.8 SECONDS (9.7-12.2) 03/24/17 06:13 INR 1.1 03/24/17 06:13 APTT 33 SECONDS (21-34) 03/20/17 16:45 Assessment and Plan - Assessment and Plan (Free Text) Assessment: 76 y.o. male with PMh IDDM2 Hypertension ESRD on HD Recurrent Prostate ca with metastasis COPD CAD s/p CABG history of AFIB
[2017-03-28] MEDS: (Lantus) Insulin Glargine, Recombinant SC SCH (21:41)
[2017-03-28 21:42] LABS: BASOPHIL 1 % (0-2); EOSINOPHIL 4 % (0-4); NEUTROPHIL 79 % (50-75); REACTIVE LYMPHOCYTES 1 % (0-0); TOTAL CELLS COUNTED 100
[2017-03-29] MEDS: (Novolog) Insulin Aspart, Recombinant 100 u/ml 10 ml vial SC SCH ×4 (07:39→22:20)
[2017-03-29] MEDS: Metoprolol Succinate 25 mg XL Tab PO SCH (09:47)
[2017-03-29] MEDS: Lidocaine 5% Patch TD SCH (09:47)
[2017-03-29] MEDS: Megestrol Acetate 40 mg/ml Cup PO SCH (09:47)
--- NOTE | 2017-03-29 09:48 | CP.PCM.PN ---
Subjective - Date & Time of Evaluation Date of Evaluation: 03/29/17 Time of Evaluation: 09:46 - Subjective Subjective: Notes reviewed Comfortable in bed Cardiology and urology evaluations noted tolerated dialysis well 03/28 No overnight events reported No gross hematuria this am No cp or palp 10 point review of systems otherwise negative Objective - Vital Signs/Intake and Output Vital Signs (last 24 hours): Temp Pulse Resp BP Pulse Ox 97.4 F L 80 18 124/66 100 03/29/17 07:10 03/29/17 07:10 03/29/17 07:10 03/29/17 07:10 03/29/17 07:10 Intake and Output: 03/29/17 03/29/17 06:59 18:59 Intake Total 300 Balance 300 - Medications Medications: Current Medications Ciprofloxacin (Cipro) 250 mg PO DAILY [facility] Last Admin: 03/28/17 10:00 Dose: Not Given Clopidogrel Bisulfate (Plavix) 75 mg PO DAILY [facility] Last Admin: 03/27/17 09:13 Dose: 75 mg Diltiazem HCl (Cardizem) 60 mg PO Q8 [facility] Last Admin: 03/29/17 06:03 Dose: 60 mg Famotidine (Pepcid) 20 mg PO DAILY [facility] Last Admin: 03/28/17 10:00 Dose: Not Given Glipizide (Glucotrol) 5 mg PO DAILY [facility] Last Admin: 03/28/17 10:00 Dose: Not Given Insulin Aspart (Novolog) 0 unit SC [facility] PRN Reason: Protocol Last Admin: 03/29/17 07:39 Dose: 4 unit Insulin Glargine (Lantus) 35 unit SC [facility] Last Admin: 03/28/17 21:41 Dose: Not Given Lidocaine (Lidoderm) 1 ea TD DAILY [facility] Last Admin: 03/28/17 09:02 Dose: 1 ea Megestrol Acetate (Megace) 400 mg PO DAILY [facility] Last Admin: 03/28/17 10:00 Dose: Not Given Metoprolol Succinate (Toprol Xl) 25 mg PO DAILY [facility] Last Admin: 03/28/17 10:00 Dose: Not Given Rosuvastatin Calcium (Crestor) 5 mg PO HS [facility] Last Admin: 03/28/17 21:46 Dose: 5 mg - Labs Labs: 03/28/17 19:57 03/27/17 22:00 PT 11.8 SECONDS (9.7-12.2) 03/24/17 06:13 INR 1.1 03/24/17 06:13 APTT 33 SECONDS (21-34) 03/20/17 16:45 - Constitutional Appears: Well, Toxic - Head Exam Head Exam: ATRAUMATIC, NORMOCEPHALIC - Eye Exam Eye Exam: EOMI, Normal appearance - ENT Exam ENT Exam: Mucous Membranes Moist, Normal Oropharynx - Neck Exam Neck Exam: Normal Inspection. absent: Lymphadenopathy - Respiratory Exam Respiratory Exam: Clear to Ausculation Bilateral, NORMAL BREATHING PATTERN. 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
--- NOTE | 2017-03-29 10:25 | CARDCATH ---
PROCEDURE DATE: 03/25/2017 PROCEDURES: 1. Left heart catheterization and left ventricular angiogram. 2. Coronary angiogram. 3. Left internal mammary artery graft angiogram. 4. Saphenous vein graft angiogram. 5. Radiological supervision and radiological interpretation of the coronary angiogram, left ventricular angiogram, saphenous vein graft angiogram and left internal mammary artery angiogram. REFERRING PHYSICIAN: Karissa Alvarez MD. PERFORMING PHYSICIAN: Jonathan Potts MD. CLINICAL INDICATIONS: 1. Chest pain. 2. [id number] myocardial infarction. 3. History of coronary artery disease, status post CABG. 4. Atrial fibrillation. 5. Hypertension. 6. Chronic kidney disease, on hemodialysis. PROCEDURE: After informed consent, the patient was prepped and draped in the usual sterile fashion. A 2% lidocaine was given in the right groin for local anesthesia. Using micropuncture technique, 6-[place] sheath was introduced into right common femoral artery. JL4 6-[place] diagnostic catheter engaged into left main coronary artery. Contrast injected and left coronary angiogram was performed. Using JR4, 6-[place] diagnostic catheter, right coronary angiogram and SVG angiogram was performed. Using IM 6F diagnostic catheter, MCMANUS angiogram was performed. JR4 6-[place] catheter was used to cross into left ventricle across the aortic valve. Contrast injected and LV angiogram was performed. EDP and pressure gradient across aortic valve were measured. The patient tolerated the procedure well. FINDINGS: 1. Left main coronary artery has 80% distal stenosis. 2. Proximal LAD is patent. Mid LAD has a long diffuse calcific 90 to 99% stenosis. Distal LAD and diagonal branches are patent. 3. Left circumflex is totally occluded distally. Obtuse marginal 1 and obtuse marginal 2 branches are 100% occluded. 4. Right coronary artery is a dominant artery. Ostial right coronary artery has 85% eccentric calcific stenosis. Mid right coronary artery has a diffuse 40 to 50% stenosis. Distal right coronary artery and PDA branches are patent. 5. Saphenous vein sequential graft to obtuse marginal 1 and obtuse marginal 2 branches are patent. 6. MCMANUS graft to LAD is patent. 7. SVG graft to RCA is totally occluded. 8. LV angiogram has revealed dilated left ventricle with poor ejection fraction. Global hypokinesis is noted. Ejection fraction is approximately 30%. EDP is 24. No gradient across the aortic valve. IMPRESSION: 1. Abnormal coronary findings as described above. 2. Dilated left ventricle with decreased ejection fraction of 30%. 3. Ischemic Cardiomyopathy PLAN: Recommend atherectomy and drug-eluting stent placement of the ostial right coronary artery. Recommend LifeVest for 3 months Jonathan Potts MD JONO
--- NOTE | 2017-03-29 16:02 | CP.PCM.PN ---
Subjective - Date & Time of Evaluation Date of Evaluation: 03/29/17 Time of Evaluation: 08:00 - Subjective Subjective: Patient seen, canot move neck due to pain, no lesion no redness no cough no fever appetite good bowel normal no other unususal complaints Objective - Vital Signs/Intake and Output Vital Signs (last 24 hours): Temp Pulse Resp BP Pulse Ox 97.4 F L 80 18 124/66 100 03/29/17 07:10 03/29/17 07:10 03/29/17 07:10 03/29/17 07:10 03/29/17 07:10 Intake and Output: 03/29/17 03/29/17 06:59 18:59 Intake Total 300 Balance 300 - Medications Medications: Current Medications Ciprofloxacin (Cipro) 250 mg PO DAILY [facility] Last Admin: 03/29/17 09:49 Dose: 250 mg Clopidogrel Bisulfate (Plavix) 75 mg PO DAILY [facility] Last Admin: 03/27/17 09:13 Dose: 75 mg Diltiazem HCl (Cardizem) 60 mg PO Q8 [facility] Last Admin: 03/29/17 13:44 Dose: 60 mg Famotidine (Pepcid) 20 mg PO DAILY [facility] Last Admin: 03/29/17 09:47 Dose: 20 mg Glipizide (Glucotrol) 5 mg PO DAILY [facility] Last Admin: 03/29/17 09:47 Dose: 5 mg Insulin Aspart (Novolog) 0 unit SC [facility] PRN Reason: Protocol Last Admin: 03/29/17 12:10 Dose: 10 unit Insulin Glargine (Lantus) 35 unit SC [facility] Last Admin: 03/28/17 21:41 Dose: Not Given Lidocaine (Lidoderm) 1 ea TD DAILY [facility] Last Admin: 03/29/17 09:47 Dose: 1 ea Megestrol Acetate (Megace) 400 mg PO DAILY [facility] Last Admin: 03/29/17 09:47 Dose: 400 mg Metoprolol Succinate (Toprol Xl) 25 mg PO DAILY [facility] Last Admin: 03/29/17 09:47 Dose: 25 mg Rosuvastatin Calcium (Crestor) 5 mg PO HS [facility] Last Admin: 03/28/17 21:46 Dose: 5 mg - Labs Labs: 03/28/17 19:57 03/27/17 22:00 PT 11.8 SECONDS (9.7-12.2) 03/24/17 06:13 INR 1.1 03/24/17 06:13 APTT 33 SECONDS (21-34) 03/20/17 16:45 - Constitutional Appears: Non-toxic - Head Exam Head Exam: ATRAUMATIC, NORMOCEPHALIC - Eye Exam Eye Exam: absent: Nystagmus - ENT Exam ENT Exam: Mucous Membranes Moist - Neck Exam Neck Exam: absent: Tenderness (but has pain on neck movements- limiting ROM) - Respiratory Exam Respiratory Exam: Clear to Ausculation Bilateral, NORMAL BREATHING PATTERN - Cardiovascular Exam Cardiovascular Exam: REGULAR RHYTHM - GI/Abdominal Exam GI & Abdominal Exam: Soft, Normal Bowel Sounds. absent: Tenderness - Extremities Exam Extremities Exam: Full ROM, Normal Inspection. absent: Pedal Edema - Back Exam Back Exam: absent: rash noted - Neurological Exam Neurological Exam: Alert, Awake, Normal Gait, Oriented x3 - Psychiatric Exam Psychiatric exam: Normal Affect, Normal Mood - Skin Skin Exam: Intact, Normal Color Assessment and Plan - Assessment and Plan (Free Text) Assessment: with gross hematuria, pending cystoscopy- rescheduled for friday Stiff neck, with neck ROM limitation- patches , supportive, avoiding NSAIDS as much as possible IDDM- still adjusting dose Hypertension continue meds Increasing WBC- no focus of infection- is being treated with antibiotic for presumed Cystitis /UTI Home services discussed
[2017-03-29] MEDS ORDERED: (Lantus) Insulin Glargine, Recombinant SC SCH (22:00)
--- NOTE | 2017-03-29 23:22 | CP.PCM.PN ---
Subjective - Date & Time of Evaluation Date of Evaluation: 03/29/17 Time of Evaluation: 10:15 - Subjective Subjective: Patient seen and evaluated No cardiac events noted Awaiting urological procedure Review of Systems - Constitutional Constitutional: absent: Fatigue, Fever - EENT Eyes: absent: Other Visual Disturbances Ears: absent: Abnormal Hearing, Disequilibrium Nose/Mouth/Throat: absent: Nasal Congestion, Sinus Pain, Dysphagia - Cardiovascular Cardiovascular: absent: Chest Pain - Respiratory Respiratory: absent: Cough, Chest Congestion - Gastrointestinal Gastrointestinal: absent: Abdominal Pain, Diarrhea, Vomiting - Genitourinary Genitourinary: absent: Dysuria, Flank Pain - Musculoskeletal Musculoskeletal: absent: Abnormal Gait, Muscle Cramps - Integumentary Integumentary: absent: Rash, Skin Ulcer, Sores - Neurological Neurological: absent: Abnormal Hearing, Abnormal Movements, Behavioral Changes, Convulsions, Syncope - Psychiatric Psychiatric: absent: Behavioral Changes, Confusion, Depression - Endocrine Endocrine: Fatigue - Hematologic/Lymphatic Hematologic: absent: Easy Bleeding, Easy Bruising Physical Exam - Constitutional Appears: Non-toxic (is conversant aware of condition) - Head Exam Head Exam: ATRAUMATIC, NORMOCEPHALIC - Eye Exam Eye Exam: absent: Nystagmus - ENT Exam ENT Exam: Mucous Membranes Moist - Respiratory Exam Respiratory Exam: Decreased Breath Sounds, NORMAL BREATHING PATTERN - Cardiovascular Exam Cardiovascular Exam: REGULAR RHYTHM - GI/Abdominal Exam GI & Abdominal Exam: Normal Bowel Sounds, Soft. absent: Tenderness - Neurological Exam Neurological exam: Alert, Normal Gait, Oriented x3 - Psychiatric Exam Psychiatric exam: Normal Affect, Normal Mood - Skin Skin Exam: Intact, Normal Color Objective - Vital Signs/Intake and Output Vital Signs (last 24 hours): Temp Pulse Resp BP Pulse Ox 98.2 F 91 H 20 101/58 L 96 03/29/17 15:31 03/29/17 15:31 03/29/17 15:31 03/29/17 15:31 03/29/17 15:31 Intake and Output: 03/29/17 03/30/17 18:59 06:59 Intake Total 280 300 Balance 280 300 - Medications Medications: Current Medications Ciprofloxacin (Cipro) 250 mg PO DAILY [facility] Last Admin: 03/29/17 09:49 Dose: 250 mg Clopidogrel Bisulfate (Plavix) 75 mg PO DAILY [facility] Last Admin: 03/27/17 09:13 Dose: 75 mg Diltiazem HCl (Cardizem) 60 mg PO Q8 [facility] Last Admin: 03/29/17 21:28 Dose: 60 mg Famotidine (Pepcid) 20 mg PO DAILY [facility] Last Admin: 03/29/17 09:47 Dose: 20 mg Glipizide (Glucotrol) 5 mg PO DAILY [facility] Last Admin: 03/29/17 09:47 Dose: 5 mg Insulin Aspart (Novolog) 0 unit SC [facility] PRN Reason: Protocol Last Admin: 03/29/17 22:20 Dose: 2 unit Insulin Glargine (Lantus) 38 unit SC HS [facility] Last Admin: 03/29/17 22:22 Dose: Not Given Lidocaine (Lidoderm) 1 ea TD DAILY [facility] Last Admin: 03/29/17 09:47 Dose: 1 ea Megestrol Acetate (Megace) 400 mg PO DAILY [facility] Last Admin: 03/29/17 09:47 Dose: 400 mg Metoprolol Succinate (Toprol Xl) 25 mg PO DAILY [facility] Last Admin: 03/29/17 09:47 Dose: 25 mg Rosuvastatin Calcium (Crestor) 5 mg PO HS [facility] Last Admin: 03/29/17 21:28 Dose: 5 mg - Labs Labs: 03/28/17 19:57 03/27/17 22:00 PT 11.8 SECONDS (9.7-12.2) 03/24/17 06:13 INR 1.1 03/24/17 06:13 APTT 33 SECONDS (21-34) 03/20/17 16:45 Assessment and Plan - Assessment and Plan (Free Text) Assessment: 76 y.o. male with PMh IDDM2 Hypertension ESRD on HD Recurrent Prostate ca with metastasis COPD CAD s/p CABG history of AFIB
[2017-03-30] MEDS: (Novolog) Insulin Aspart, Recombinant 100 u/ml 10 ml vial SC SCH ×4 (08:02→22:21)
--- NOTE | 2017-03-30 09:46 | CP.PCM.PN ---
Subjective - Date & Time of Evaluation Date of Evaluation: 03/30/17 Time of Evaluation: 09:30 - Subjective Subjective: Patient seen, mostly in beddu eto neck pain- xray done pending results WBC noted increasing discussed with patient -no sign and symptoms for infectious focus sugar still on the high side despite adjusting insulin still with hematuria- on antibiotic for cystoscopy in AM Objective - Vital Signs/Intake and Output Vital Signs (last 24 hours): Temp Pulse Resp BP Pulse Ox 97.7 F 71 18 110/55 L 96 03/30/17 07:10 03/30/17 07:10 03/30/17 07:10 03/30/17 07:10 03/30/17 07:10 Intake and Output: 03/30/17 03/30/17 06:59 18:59 Intake Total 300 Balance 300 - Medications Medications: Current Medications Ciprofloxacin (Cipro) 250 mg PO DAILY [facility] Last Admin: 03/29/17 09:49 Dose: 250 mg Clopidogrel Bisulfate (Plavix) 75 mg PO DAILY [facility] Last Admin: 03/27/17 09:13 Dose: 75 mg Diltiazem HCl (Cardizem) 60 mg PO Q8 [facility] Last Admin: 03/30/17 05:27 Dose: 60 mg Famotidine (Pepcid) 20 mg PO DAILY [facility] Last Admin: 03/29/17 09:47 Dose: 20 mg Glipizide (Glucotrol) 5 mg PO DAILY [facility] Last Admin: 03/29/17 09:47 Dose: 5 mg Insulin Aspart (Novolog) 0 unit SC ACHS [facility] PRN Reason: Protocol Last Admin: 03/30/17 08:02 Dose: 6 unit Insulin Glargine (Lantus) 40 unit SC HS [facility] Lidocaine (Lidoderm) 1 ea TD DAILY [facility] Last Admin: 03/29/17 09:47 Dose: 1 ea Megestrol Acetate (Megace) 400 mg PO DAILY [facility] Last Admin: 03/29/17 09:47 Dose: 400 mg Metoprolol Succinate (Toprol Xl) 25 mg PO DAILY [facility] Last Admin: 03/29/17 09:47 Dose: 25 mg Rosuvastatin Calcium (Crestor) 5 mg PO HS [facility] Last Admin: 03/29/17 21:28 Dose: 5 mg - Labs Labs: 03/28/17 19:57 03/27/17 22:00 PT 11.8 SECONDS (9.7-12.2) 03/24/17 06:13 INR 1.1 03/24/17 06:13 APTT 33 SECONDS (21-34) 03/20/17 16:45 - Constitutional Appears: Non-toxic, No Acute Distress - Head Exam Head Exam: ATRAUMATIC, NORMOCEPHALIC - Eye Exam Eye Exam: Normal appearance - ENT Exam ENT Exam: Mucous Membranes Moist - Neck Exam Neck Exam: Normal Inspection (neck motion is limited by pain- no lesion . non tender , ). absent: Tenderness - Respiratory Exam Respiratory Exam: Clear to Ausculation Bilateral, NORMAL BREATHING PATTERN - Cardiovascular Exam Cardiovascular Exam: REGULAR RHYTHM - GI/Abdominal Exam GI & Abdominal Exam: Soft, Normal Bowel Sounds. absent: Tenderness - Extremities Exam Extremities Exam: Full ROM, Normal Capillary Refill (Dialysis shunts- no inflammation), Normal Inspection - Back Exam Back Exam: Full ROM. absent: rash noted, tenderness - Neurological Exam Neurological Exam: Alert, Awake, Normal Gait, Oriented x3 - Psychiatric Exam Psychiatric exam: Normal Affect, Normal Mood - Skin Skin Exam: Intact, Normal Color. absent: Rash Assessment and Plan - Assessment and Plan (Free Text) Assessment: Patient with ESRD on HD Henaturia with Prostatic ca- for cysto in am increasing WBC, Increasing Sugar- unknown focue for infection- the only thing is possible URTI- which is covered by antibiotic IDDM- uncontrolled with adjusting dose Neck pain- possibly muscular-positional DJD = but ordered XRay to r/o any other focus of increasing WBC will continue to monitor plan forhome after cystoscopy
[2017-03-30] MEDS: Lidocaine 5% Patch TD SCH (10:13)
[2017-03-30] MEDS: Metoprolol Succinate 25 mg XL Tab PO SCH (10:14)
[2017-03-30] MEDS: Megestrol Acetate 40 mg/ml Cup PO SCH (10:14)
--- NOTE | 2017-03-30 10:34 | RAD ---
Chest x-ray two views History: Chest pain. Comparison: 03/20/2017 Findings: Patchy increased markings at the left lung base. Mild venous congestion. Bilateral hilar prominence. Status post median sternotomy and CABG. Cardiomegaly. Biapical pleural thickening with upper lobe granulomatous changes. Degenerative changes in the spine and shoulders. Bilateral axillary stents in place. Impression: Patchy increased markings at the left lung base. Mild venous congestion. Bilateral hilar prominence. Status post median sternotomy and CABG. Cardiomegaly.
--- NOTE | 2017-03-30 10:41 | RAD ---
Cervical spine three views History: Neck pain. Comparison: None available. Findings: Cervical spine imaged from C1 through C7. Minimal retrolisthesis of C4 on C5. Minimal anterolisthesis of C6 on C7. Loss of disc space height of the C4-5, C5-6, and C6-7 levels with associated prominent anterior osteophyte formation at those levels. Prominent posterior disc osteophyte complex at the C4-5 and to a lesser extent the C5-6 levels. No significant prevertebral soft tissue swelling. No evidence of acute displaced fracture. Multilevel uncovertebral joint and facet hypertrophy. Soft tissue calcifications seen within the bilateral neck. Right axillary stent in place. Suboptimal view of the dens. Impression: Severe degenerative changes. If pain persists, consider MRI.
--- NOTE | 2017-03-30 20:06 | CP.PCM.PN ---
Subjective - Date & Time of Evaluation Date of Evaluation: 03/30/17 Time of Evaluation: 14:00 - Subjective Subjective: Patient seen and evaluated Denies chest pain and dyspnea Assessed as moderate cardiac risk for urological procedure under general anaesthesia Avoid fluid overload Review of Systems - Constitutional Constitutional: absent: Fatigue, Fever - EENT Eyes: absent: Other Visual Disturbances Ears: absent: Abnormal Hearing, Disequilibrium Nose/Mouth/Throat: absent: Nasal Congestion, Sinus Pain, Dysphagia - Cardiovascular Cardiovascular: absent: Chest Pain - Respiratory Respiratory: absent: Cough, Chest Congestion - Gastrointestinal Gastrointestinal: absent: Abdominal Pain, Diarrhea, Vomiting - Genitourinary Genitourinary: absent: Dysuria, Flank Pain - Musculoskeletal Musculoskeletal: absent: Abnormal Gait, Muscle Cramps - Integumentary Integumentary: absent: Rash, Skin Ulcer, Sores - Neurological Neurological: absent: Abnormal Hearing, Abnormal Movements, Behavioral Changes, Convulsions, Syncope - Psychiatric Psychiatric: absent: Behavioral Changes, Confusion, Depression - Endocrine Endocrine: Fatigue - Hematologic/Lymphatic Hematologic: absent: Easy Bleeding, Easy Bruising Physical Exam - Constitutional Appears: Non-toxic (is conversant aware of condition) - Head Exam Head Exam: ATRAUMATIC, NORMOCEPHALIC - Eye Exam Eye Exam: absent: Nystagmus - ENT Exam ENT Exam: Mucous Membranes Moist - Respiratory Exam Respiratory Exam: Decreased Breath Sounds, NORMAL BREATHING PATTERN - Cardiovascular Exam Cardiovascular Exam: REGULAR RHYTHM - GI/Abdominal Exam GI & Abdominal Exam: Normal Bowel Sounds, Soft. absent: Tenderness - Neurological Exam Neurological exam: Alert, Normal Gait, Oriented x3 - Psychiatric Exam Psychiatric exam: Normal Affect, Normal Mood - Skin Skin Exam: Intact, Normal Color Objective - Vital Signs/Intake and Output Vital Signs (last 24 hours): Temp Pulse Resp BP Pulse Ox 97.7 F 91 H 18 123/54 L 96 03/30/17 15:22 03/30/17 15:22 03/30/17 15:22 03/30/17 15:22 03/30/17 15:22 - Medications Medications: Current Medications Ciprofloxacin (Cipro) 250 mg PO DAILY [facility] Last Admin: 03/30/17 10:23 Dose: 250 mg Clopidogrel Bisulfate (Plavix) 75 mg PO DAILY [facility] Last Admin: 03/27/17 09:13 Dose: 75 mg Diltiazem HCl (Cardizem) 60 mg PO Q8 [facility] Last Admin: 03/30/17 14:07 Dose: 60 mg Famotidine (Pepcid) 20 mg PO DAILY [facility] Last Admin: 03/30/17 10:14 Dose: 20 mg Glipizide (Glucotrol) 5 mg PO DAILY [facility] Last Admin: 03/30/17 10:14 Dose: 5 mg Insulin Aspart (Novolog) 0 unit SC ACHS [facility] PRN Reason: Protocol Last Admin: 03/30/17 17:30 Dose: 4 unit Insulin Glargine (Lantus) 40 unit SC HS [facility] Lidocaine (Lidoderm) 1 ea TD DAILY [facility] Last Admin: 03/30/17 10:13 Dose: 1 ea Megestrol Acetate (Megace) 400 mg PO DAILY [facility] Last Admin: 03/30/17 10:14 Dose: 400 mg Metoprolol Succinate (Toprol Xl) 25 mg PO DAILY [facility] Last Admin: 03/30/17 10:14 Dose: 25 mg Rosuvastatin Calcium (Crestor) 5 mg PO HS [facility] Last Admin: 03/29/17 21:28 Dose: 5 mg - Labs Labs: 03/28/17 19:57 03/27/17 22:00 PT 11.8 SECONDS (9.7-12.2) 03/24/17 06:13 INR 1.1 03/24/17 06:13 APTT 33 SECONDS (21-34) 03/20/17 16:45 Assessment and Plan - Assessment and Plan (Free Text) Assessment: 76 y.o. male with PMh IDDM2 Hypertension ESRD on HD Recurrent Prostate ca with metastasis COPD CAD s/p CABG history of AFIB Patient seen and evaluated Denies chest pain and dyspnea Assessed as moderate cardiac risk for urological procedure under general anaesthesia Avoid fluid overload
[2017-03-30 20:53] LABS: CALCIUM 8.2 mg/dl (8.6-10.4); POTASSIUM 4.1 mmol/L (3.6-5.2)
[2017-03-30] MEDS ORDERED: (Lantus) Insulin Glargine, Recombinant SC SCH (22:00)
[2017-03-31 07:35] LABS: BASO # 0.1 K/uL (0.0-0.2); BASO % 0.4 % (0.0-2.0); EOS # 0.2 K/uL (0.0-0.7); EOS % 1.2 % (0.0-4.0); HEMATOCRIT 31.8 % (35.0-51.0); LYMPH # 1.3 K/uL (1.0-4.3); LYMPH % 8.1 % (20.0-40.0); MEAN CELL VOLUME 81.7 fL (80.0-94.0); MEAN CORPUSCULAR HEMOGLOBIN 26.6 pg (27.0-31.0); MEAN CORPUSCULAR HGB CONC 32.6 g/dL (33.0-37.0); MEAN PLATELET VOLUME 9.1 fL (7.2-11.7); MONO # 1.8 K/uL (0.0-0.8); MONO % 11.5 % (0.0-10.0); NRBC % 0.1 % (0.0-2.0); PLATELET COUNT 265 K/uL (130-400); RED CELL DISTRIBUTION WIDTH 19.2 % (11.5-14.5); WHITE BLOOD COUNT 15.5 K/uL (4.8-10.8)
[2017-03-31] MEDS: (Novolog) Insulin Aspart, Recombinant 100 u/ml 10 ml vial SC SCH ×4 (08:13→21:33)
[2017-03-31] MEDS ORDERED: Lidocaine 2% Jelly (Uro-Jet) ONE (08:38)
[2017-03-31] MEDS ORDERED: Iohexol 240 (50 ml) ONE (08:38)
[2017-03-31] MEDS ORDERED: cefTRIAXone IV 1 gm in Dextros 0 ML IVPB ONE (08:38)
[2017-03-31 08:45] LABS: NEUTROPHIL 77 % (50-75); TOTAL CELLS COUNTED 100
[2017-03-31] MEDS ORDERED: (Novolin R) Insulin Human Regular 100 units/ml vial IV ONE (08:52)
[2017-03-31] MEDS ORDERED: Propofol 10 mg/ml Inj (20 ML) ONE (09:01)
[2017-03-31] MEDS ORDERED: Esmolol 100 mg/10ml Inj IV ONE (09:09)
--- NOTE | 2017-03-31 11:51 | CP.PCM.PN ---
Subjective - Date & Time of Evaluation Date of Evaluation: 03/31/17 Time of Evaluation: 11:48 - Subjective Subjective: s/o cystoscopy- await results no new dyspnea; awaiting dialysis now- needs adequate UF no f, chills, nausea, diarrhea no CPs better appetite- very hungry Objective - Vital Signs/Intake and Output Vital Signs (last 24 hours): Temp Pulse Resp BP Pulse Ox 99.7 F H 111 H 13 127/52 L 100 03/31/17 09:40 03/31/17 10:30 03/31/17 10:30 03/31/17 10:30 03/31/17 10:30 Intake and Output: 03/31/17 03/31/17 06:59 18:59 Intake Total 320 Balance 320 - Medications Medications: Current Medications Ciprofloxacin (Cipro) 250 mg PO DAILY [facility] Last Admin: 03/30/17 10:23 Dose: 250 mg Clopidogrel Bisulfate (Plavix) 75 mg PO DAILY [facility] Last Admin: 03/27/17 09:13 Dose: 75 mg Diltiazem HCl (Cardizem) 60 mg PO Q8 [facility] Last Admin: 03/31/17 05:37 Dose: Not Given Famotidine (Pepcid) 20 mg PO DAILY [facility] Last Admin: 03/30/17 10:14 Dose: 20 mg Glipizide (Glucotrol) 5 mg PO DAILY [facility] Last Admin: 03/30/17 10:14 Dose: 5 mg Insulin Aspart (Novolog) 0 unit SC [facility] PRN Reason: Protocol Last Admin: 03/31/17 08:13 Dose: Not Given Insulin Glargine (Lantus) 40 unit SC [facility] Last Admin: 03/30/17 22:21 Dose: Not Given Lidocaine (Lidoderm) 1 ea TD DAILY [facility] Last Admin: 03/30/17 10:13 Dose: 1 ea Megestrol Acetate (Megace) 400 mg PO DAILY [facility] Last Admin: 03/30/17 10:14 Dose: 400 mg Metoprolol Succinate (Toprol Xl) 25 mg PO DAILY [facility] Last Admin: 03/30/17 10:14 Dose: 25 mg Rosuvastatin Calcium (Crestor) 5 mg PO HS [facility] Last Admin: 03/30/17 22:12 Dose: 5 mg - Labs Labs: 03/31/17 07:14 03/30/17 20:24 PT 11.8 SECONDS (9.7-12.2) 03/24/17 06:13 INR 1.1 03/24/17 06:13 APTT 33 SECONDS (21-34) 03/20/17 16:45 - Constitutional Appears: No Acute Distress, Chronically Ill - Head Exam Head Exam: ATRAUMATIC, NORMAL INSPECTION - Eye Exam Eye Exam: EOMI, Normal appearance - Neck Exam Neck Exam: Normal Inspection. absent: Tenderness - Respiratory Exam Respiratory Exam: Clear to Ausculation Bilateral, NORMAL BREATHING PATTERN - Cardiovascular Exam Cardiovascular Exam: Tachycardia, Irregular Rhythm - GI/Abdominal Exam GI & Abdominal Exam: Soft. absent: Tenderness - Extremities Exam Extremities Exam: Normal Inspection. absent: Tenderness - Neurological Exam Neurological Exam: Alert, CN II-XII Intact - Skin Skin Exam: Dry, Warm Assessment and Plan (1) Prostate CA Status: Acute (2) Type 2 diabetes mellitus with diabetic nephropathy Status: Acute (3) Atrial fibrillation Status: Acute (4) CHF (congestive heart failure) Status: Acute (5) COPD (chronic obstructive pulmonary disease) with emphysema Status: Chronic (6) ESRD (end stage renal disease) on dialysis Status: Chronic - Assessment and Plan (Free Text) Plan: Dialysis MWF Needs adequate UF monitor BP control AFib Await cysto results
--- NOTE | 2017-03-31 12:24 | PCM.URO ---
Urology Progress Note - Subjective Vomiting: No Hematuria: Yes (less) Other: Pt was brought to cysto suite this am. The procedure was cancelled, as per anesthesiology, due to arrhythmia w tachycardia. - Objective Lab Results Last 24 Hours: Laboratory Results - last 24 hr 03/30/17 03/30/17 03/30/17 17:03 20:24 21:24 WBC RBC Hgb Hct MCV MCH MCHC RDW Plt Count MPV Neut % (Auto) Lymph % (Auto) [place] % (Auto) Eos % (Auto) Baso % (Auto) Neut # Lymph # [place] # Eos # Baso # Neutrophils % (Manual) Lymphocytes % (Manual) Monocytes % (Manual) Platelet Estimate Hypochromasia (manual) Poikilocytosis (manual Anisocytosis (manual) Sodium 128 L Potassium 4.1 Chloride 92 L Carbon Dioxide 22 Anion Gap 19 BUN 101 H* D Creatinine 6.6 H Est GFR ( Amer) 10 Est GFR (Non-Af Amer) 8 POC Glucose (mg/dL) 270 H 334 H Random Glucose 331 H Calcium 8.2 L 03/31/17 03/31/17 03/31/17 06:19 07:14 09:48 WBC 15.5 H RBC 3.90 L Hgb 10.4 L Hct 31.8 L MCV 81.7 MCH 26.6 L MCHC 32.6 L RDW 19.2 H Plt Count 265 MPV 9.1 Neut % (Auto) 78.8 H Lymph % (Auto) 8.1 L [place] % (Auto) 11.5 H Eos % (Auto) 1.2 Baso % (Auto) 0.4 Neut # 12.2 H Lymph # 1.3 [place] # 1.8 H Eos # 0.2 Baso # 0.1 Neutrophils % (Manual) 77 H Lymphocytes % (Manual) 11 L Monocytes % (Manual) 12 H Platelet Estimate Normal Hypochromasia (manual) Slight Poikilocytosis (manual Slight Anisocytosis (manual) Slight Sodium Potassium Chloride Carbon Dioxide Anion Gap BUN Creatinine Est GFR ( Amer) Est GFR (Non-Af Amer) POC Glucose (mg/dL) 291 H 328 H Random Glucose Calcium 03/31/17 11:29 WBC RBC Hgb Hct MCV MCH MCHC RDW Plt Count MPV Neut % (Auto) Lymph % (Auto) [place] % (Auto) Eos % (Auto) Baso % (Auto) Neut # Lymph # [place] # Eos # Baso # Neutrophils % (Manual) Lymphocytes % (Manual) Monocytes % (Manual) Platelet Estimate Hypochromasia (manual) Poikilocytosis (manual Anisocytosis (manual) Sodium Potassium Chloride Carbon Dioxide Anion Gap BUN Creatinine Est GFR ( Amer) Est GFR (Non-Af Amer) POC Glucose (mg/dL) 289 H Random Glucose Calcium Intake & Output: Intake & Output 03/30/17 03/31/17 03/31/17 18:59 06:59 18:59 Intake Total 320 Balance 320 Intake: Oral 320 Other: # Voids Urine, Voided 0 # Bowel Movements 0 Vital Signs: Vital Signs - 24 hr 03/30/17 03/30/17 03/31/17 15:22 23:15 00:00 Temperature 97.7 F 98.1 F Pulse Rate 91 H 72 74 Respiratory 18 20 Rate Blood Pressure 123/54 L 121/51 L O2 Sat by Pulse 96 100 Oximetry 03/31/17 03/31/17 03/31/17 08:00 08:10 09:40 Temperature 97.5 F L 99.7 F H Pulse Rate 76 76 120 H Respiratory 18 18 Rate Blood Pressure 98/46 L 142/53 L O2 Sat by Pulse 98 100 Oximetry 03/31/17 03/31/17 03/31/17 09:45 10:00 10:15 Temperature Pulse Rate 116 H 118 H 110 H Respiratory 19 18 15 Rate Blood Pressure 108/66 109/67 118/73 O2 Sat by Pulse 100 100 100 Oximetry 03/31/17 10:30 Temperature Pulse Rate 111 H Respiratory 13 Rate Blood Pressure 127/52 L O2 Sat by Pulse 100 Oximetry - Physical Exam Abdominal Exam: Soft, Non-Tender, Non-Distended Back: No CVA Tenderness Genitalia: Without Inflammation - Plan Additional Information: Imp: hematuria. Prostate ca. renal failure - Date & Time of Note Date: 03/31/17 Time: 09:30
[2017-03-31] MEDS: Megestrol Acetate 40 mg/ml Cup PO SCH (13:03)
[2017-03-31] MEDS: Lidocaine 5% Patch TD SCH (13:03)
[2017-03-31] MEDS: Metoprolol Succinate 25 mg XL Tab PO SCH (13:07)
--- NOTE | 2017-03-31 13:53 | RAD ---
HISTORY: HEMATURIA COMPARISON: 09/15/2015 FINDINGS: BOWEL: Normal. No obstruction. No free air. BONES: Normal. OTHER FINDINGS: Small stones are seen in the lower pole of left kidney. These are unchanged. A caval filter is seen IMPRESSION: No active disease.
--- NOTE | 2017-03-31 17:52 | CP.PCM.PN ---
Subjective - Date & Time of Evaluation Date of Evaluation: 03/31/17 Time of Evaluation: 04:00 - Subjective Subjective: Patient seen, supposed cystoscopy today was cancelled had episode of arrhythmia , cardio -staff discussion discussion this time patienyt agreed to subacute appetie good bowel okay no complaints no cough no other Objective - Vital Signs/Intake and Output Vital Signs (last 24 hours): Temp Pulse Resp BP Pulse Ox 98 F 73 20 135/63 98 03/31/17 16:01 03/31/17 16:01 03/31/17 16:01 03/31/17 16:01 03/31/17 16:01 Intake and Output: 03/31/17 03/31/17 06:59 18:59 Intake Total 320 Balance 320 - Medications Medications: Current Medications Ciprofloxacin (Cipro) 250 mg PO DAILY [facility] Last Admin: 03/31/17 13:06 Dose: 250 mg Clopidogrel Bisulfate (Plavix) 75 mg PO DAILY [facility] Last Admin: 03/27/17 09:13 Dose: 75 mg Diltiazem HCl (Cardizem) 60 mg PO Q8 [facility] Last Admin: 03/31/17 13:33 Dose: 60 mg Famotidine (Pepcid) 20 mg PO DAILY [facility] Last Admin: 03/31/17 13:03 Dose: 20 mg Glipizide (Glucotrol) 5 mg PO DAILY [facility] Last Admin: 03/31/17 10:00 Dose: Not Given Insulin Aspart (Novolog) 0 unit SC ACHS [facility] PRN Reason: Protocol Last Admin: 03/31/17 16:26 Dose: 10 unit Insulin Glargine (Lantus) 45 unit SC HS [facility] Lidocaine (Lidoderm) 1 ea TD DAILY [facility] Last Admin: 03/31/17 13:03 Dose: 1 ea Megestrol Acetate (Megace) 400 mg PO DAILY [facility] Last Admin: 03/31/17 13:03 Dose: 400 mg Metoprolol Succinate (Toprol Xl) 25 mg PO DAILY [facility] Last Admin: 03/31/17 13:07 Dose: Not Given Rosuvastatin Calcium (Crestor) 5 mg PO HS [facility] Last Admin: 03/30/17 22:12 Dose: 5 mg - Labs Labs: 03/31/17 07:14 03/30/17 20:24 PT 11.8 SECONDS (9.7-12.2) 03/24/17 06:13 INR 1.1 03/24/17 06:13 APTT 33 SECONDS (21-34) 03/20/17 16:45 - Constitutional Appears: Well - Head Exam Head Exam: ATRAUMATIC, NORMOCEPHALIC - Eye Exam Eye Exam: Normal appearance. absent: Nystagmus - ENT Exam ENT Exam: Mucous Membranes Moist - Neck Exam Neck Exam: Full ROM. absent: Tenderness - Respiratory Exam Respiratory Exam: Clear to Ausculation Bilateral, NORMAL BREATHING PATTERN - Cardiovascular Exam Cardiovascular Exam: REGULAR RHYTHM - GI/Abdominal Exam GI & Abdominal Exam: Soft, Normal Bowel Sounds. absent: Tenderness - Extremities Exam Extremities Exam: Full ROM. absent: Pedal Edema, Tenderness - Neurological Exam Neurological Exam: Alert, Awake, Normal Gait, Oriented x3 - Psychiatric Exam Psychiatric exam: Normal Affect, Normal Mood - Skin Skin Exam: Intact, Normal Color Assessment and Plan - Assessment and Plan (Free Text) Assessment: Patient with ESRD on HD IDDM2- uncontrolled- keep adjiusting insulin, dietary education Arrhythmia- cardiac review when cleared plan for home Hematuria with history of prostae ca- now off heparin and aspirin- bleeding had lessened Debility, agreed to subacute social sercvices discussion
[2017-03-31] MEDS: (Lantus) Insulin Glargine, Recombinant SC SCH (21:32)
--- NOTE | 2017-04-01 08:14 | PCM.URO ---
Urology Progress Note - General General: Tolerating Diet - Subjective Abdominal Pain: No Vomiting: No Hematuria: No (has not voided) Chest Pain: No Fever & Chills: No - Objective Lab Results Last 24 Hours: Laboratory Results - last 24 hr 03/31/17 03/31/17 03/31/17 07:14 09:48 11:29 Neutrophils % (Manual) 77 H Lymphocytes % (Manual) 11 L Monocytes % (Manual) 12 H Platelet Estimate Normal Hypochromasia (manual) Slight Poikilocytosis (manual Slight Anisocytosis (manual) Slight POC Glucose (mg/dL) 328 H 289 H 03/31/17 03/31/17 03/31/17 16:14 18:52 21:16 Neutrophils % (Manual) Lymphocytes % (Manual) Monocytes % (Manual) Platelet Estimate Hypochromasia (manual) Poikilocytosis (manual Anisocytosis (manual) POC Glucose (mg/dL) 419 H* 183 H 287 H 04/01/17 06:49 Neutrophils % (Manual) Lymphocytes % (Manual) Monocytes % (Manual) Platelet Estimate Hypochromasia (manual) Poikilocytosis (manual Anisocytosis (manual) POC Glucose (mg/dL) 182 H Intake & Output: Intake & Output 03/31/17 04/01/17 04/01/17 18:59 06:59 18:59 Intake Total 358 Balance 358 Intake: Oral 358 Other: # Voids Urine, Voided 0 # Bowel Movements 0 Vital Signs: Vital Signs - 24 hr 03/31/17 03/31/17 03/31/17 09:40 09:45 10:00 Temperature 99.7 F H Pulse Rate 120 H 116 H 118 H Pulse Rate [ Apical] Respiratory 18 19 18 Rate Blood Pressure 142/53 L 108/66 109/67 Blood Pressure [Left Arm] O2 Sat by Pulse 100 100 100 Oximetry 03/31/17 03/31/17 03/31/17 10:15 10:30 10:45 Temperature Pulse Rate 110 H 111 H 103 H Pulse Rate [ Apical] Respiratory 15 13 20 Rate Blood Pressure 118/73 127/52 L 112/48 L Blood Pressure [Left Arm] O2 Sat by Pulse 100 100 100 Oximetry 03/31/17 03/31/17 03/31/17 11:00 16:00 16:01 Temperature 99 F 98 F Pulse Rate 100 H 89 73 Pulse Rate [ Apical] Respiratory 18 20 Rate Blood Pressure 122/39 L 135/63 Blood Pressure [Left Arm] O2 Sat by Pulse 100 98 Oximetry 03/31/17 03/31/17 03/31/17 17:00 17:15 17:30 Temperature 98 F Pulse Rate 69 Pulse Rate [ 69 67 69 Apical] Respiratory 18 16 17 Rate Blood Pressure 132/46 L Blood Pressure 122/46 L 93/56 L 124/62 [Left Arm] O2 Sat by Pulse 99 99 98 Oximetry 03/31/17 03/31/17 03/31/17 18:00 18:30 19:00 Temperature Pulse Rate Pulse Rate [ 74 89 65 Apical] Respiratory 17 16 17 Rate Blood Pressure Blood Pressure 142/71 114/44 L 99/67 L [Left Arm] O2 Sat by Pulse 98 98 99 Oximetry 03/31/17 03/31/17 03/31/17 19:30 20:00 20:30 Temperature Pulse Rate Pulse Rate [ 71 61 55 L Apical] Respiratory 16 16 16 Rate Blood Pressure Blood Pressure 123/56 L 100/54 L 88/44 L [Left Arm] O2 Sat by Pulse 99 98 97 Oximetry 03/31/17 03/31/17 04/01/17 21:24 23:15 00:00 Temperature 98.7 F 98.7 F Pulse Rate 120 H 82 101 H Pulse Rate [ Apical] Respiratory 20 20 Rate Blood Pressure 141/56 L 112/53 L Blood Pressure [Left Arm] O2 Sat by Pulse 97 100 Oximetry - Physical Exam Abdominal Exam: Soft, Non-Tender, Non-Distended Back: No CVA Tenderness Genitalia: Without Inflammation - Plan Additional Information: Imp: Hx of hematuria. Prostate ca. P: Will discuss re further management. Discussed w pt and w nursing staff - Date & Time of Note Date: 04/01/17 Time: 08:14
[2017-04-01] MEDS: Megestrol Acetate 40 mg/ml Cup PO SCH (10:10)
[2017-04-01] MEDS: (Novolog) Insulin Aspart, Recombinant 100 u/ml 10 ml vial SC SCH ×4 (10:10→22:10)
[2017-04-01] MEDS: Metoprolol Succinate 25 mg XL Tab PO SCH (10:11)
[2017-04-01] MEDS: Lidocaine 5% Patch TD SCH (10:11)
--- NOTE | 2017-04-01 10:11 | CP.PCM.PN ---
Subjective - Date & Time of Evaluation Date of Evaluation: 04/01/17 Time of Evaluation: 11:00 - Subjective Subjective: Patient seen reports hadpacemaker shock this am- was taken cared of- he has no complaints now no SOB no chest pain no fever no cough discusssion of subacute- -patient aware and m=amenable to transfer discussed with cardio- with no furhther cardiac procedure dialysis will be on schedule no bowel complaints hematuria improving off paspirin off heparin Objective - Vital Signs/Intake and Output Vital Signs (last 24 hours): Temp Pulse Resp BP Pulse Ox 98.7 F 101 H 20 112/53 L 100 03/31/17 23:15 04/01/17 00:00 03/31/17 23:15 03/31/17 23:15 03/31/17 23:15 Intake and Output: 04/01/17 04/01/17 06:59 18:59 Intake Total 358 Balance 358 - Medications Medications: Current Medications Clopidogrel Bisulfate (Plavix) 75 mg PO DAILY [facility] Last Admin: 03/27/17 09:13 Dose: 75 mg Diltiazem HCl (Cardizem) 60 mg PO Q8 [facility] Last Admin: 04/01/17 06:03 Dose: 60 mg Famotidine (Pepcid) 20 mg PO DAILY [facility] Last Admin: 03/31/17 13:03 Dose: 20 mg Glipizide (Glucotrol) 5 mg PO DAILY [facility] Last Admin: 03/31/17 10:00 Dose: Not Given Insulin Aspart (Novolog) 0 unit SC ACHS [facility] PRN Reason: Protocol Last Admin: 03/31/17 21:33 Dose: Not Given Insulin Glargine (Lantus) 45 unit SC [facility] Last Admin: 03/31/17 21:32 Dose: 45 units Lidocaine (Lidoderm) 1 ea TD DAILY [facility] Last Admin: 03/31/17 13:03 Dose: 1 ea Megestrol Acetate (Megace) 400 mg PO DAILY [facility] Last Admin: 03/31/17 13:03 Dose: 400 mg Metoprolol Succinate (Toprol Xl) 25 mg PO DAILY [facility] Last Admin: 03/31/17 13:07 Dose: Not Given Rosuvastatin Calcium (Crestor) 5 mg PO HS [facility] Last Admin: 03/31/17 21:26 Dose: 5 mg - Labs Labs: 03/31/17 07:14 03/30/17 20:24 PT 11.8 SECONDS (9.7-12.2) 03/24/17 06:13 INR 1.1 03/24/17 06:13 APTT 33 SECONDS (21-34) 03/20/17 16:45 - Constitutional Appears: Non-toxic - Head Exam Head Exam: ATRAUMATIC, NORMOCEPHALIC - Eye Exam Eye Exam: Normal appearance - ENT Exam ENT Exam: Mucous Membranes Moist - Neck Exam Neck Exam: Full ROM - Respiratory Exam Respiratory Exam: Clear to Ausculation Bilateral, NORMAL BREATHING PATTERN - Cardiovascular Exam Cardiovascular Exam: REGULAR RHYTHM - GI/Abdominal Exam GI & Abdominal Exam: Soft, Normal Bowel Sounds. absent: Tenderness - Extremities Exam Extremities Exam: Full ROM, Normal Capillary Refill. absent: Pedal Edema - Neurological Exam Neurological Exam: Abnormal Gait, Alert, Oriented x3 - Skin Skin Exam: Intact, Normal Color Assessment and Plan - Assessment and Plan (Free Text) Assessment: Patient with ESRD on HD CAD s/p CABG= afib- pacemaker shock- stable now Anemia=of chronic condition will start iron Hematuria with prostae ca- bleeding improvement with holding aspirin and heparin IDDM@- adjusting insulin-accordingly Debility- for subacute
--- NOTE | 2017-04-01 11:42 | CP.PCM.PN ---
Subjective - Date & Time of Evaluation Date of Evaluation: 04/01/17 Time of Evaluation: 11:40 - Subjective Subjective: seen and examined working w/ pt hematuria improved, "off and on" denies any chest pain sob dizziness nasuea vomiting diarrhea fevers chills feels weak. Objective - Vital Signs/Intake and Output Vital Signs (last 24 hours): Temp Pulse Resp BP Pulse Ox 98.7 F 101 H 20 112/53 L 100 03/31/17 23:15 04/01/17 00:00 03/31/17 23:15 03/31/17 23:15 03/31/17 23:15 Intake and Output: 04/01/17 04/01/17 06:59 18:59 Intake Total 358 Balance 358 - Medications Medications: Current Medications Clopidogrel Bisulfate (Plavix) 75 mg PO DAILY [facility] Last Admin: 03/27/17 09:13 Dose: 75 mg Diltiazem HCl (Cardizem) 60 mg PO Q8 [facility] Last Admin: 04/01/17 06:03 Dose: 60 mg Famotidine (Pepcid) 20 mg PO DAILY [facility] Last Admin: 04/01/17 10:10 Dose: 20 mg Glipizide (Glucotrol) 5 mg PO DAILY [facility] Last Admin: 04/01/17 10:10 Dose: 5 mg Insulin Aspart (Novolog) [address] [facility] PRN Reason: Protocol Last Admin: 04/01/17 10:10 Dose: Not Given Insulin Glargine (Lantus) 45 unit SC HS [facility] Last Admin: 03/31/17 21:32 Dose: 45 units Lidocaine (Lidoderm) 1 ea TD DAILY [facility] Last Admin: 04/01/17 10:11 Dose: 1 ea Megestrol Acetate (Megace) 400 mg PO DAILY [facility] Last Admin: 04/01/17 10:10 Dose: 400 mg Metoprolol Succinate (Toprol Xl) 25 mg PO DAILY [facility] Last Admin: 04/01/17 10:11 Dose: Not Given Rosuvastatin Calcium (Crestor) 5 mg PO HS [facility] Last Admin: 03/31/17 21:26 Dose: 5 mg - Labs Labs: 03/31/17 07:14 03/30/17 20:24 PT 11.8 SECONDS (9.7-12.2) 03/24/17 06:13 INR 1.1 03/24/17 06:13 APTT 33 SECONDS (21-34) 03/20/17 16:45 - Constitutional Appears: Non-toxic, No Acute Distress, Chronically Ill - Head Exam Head Exam: NORMAL INSPECTION - Eye Exam Eye Exam: Normal appearance - ENT Exam ENT Exam: Mucous Membranes Moist, Normal Exam - Neck Exam Neck Exam: Normal Inspection - Respiratory Exam Respiratory Exam: Clear to Ausculation Bilateral, NORMAL BREATHING PATTERN - Cardiovascular Exam Cardiovascular Exam: REGULAR RHYTHM, RRR - GI/Abdominal Exam GI & Abdominal Exam: Distended, Soft - Extremities Exam Extremities Exam: Normal Inspection - Back Exam Back Exam: NORMAL INSPECTION - Neurological Exam Neurological Exam: Alert, Awake, Oriented x3 - Psychiatric Exam Psychiatric exam: Normal Affect, Normal Mood - Skin Skin Exam: Dry, Warm Assessment and Plan (1) Atrial fibrillation Status: Acute (2) Chest pain Status: Acute (3) Congestive heart failure Status: Acute (4) Prostate CA Status: Acute (5) Type 2 diabetes mellitus with diabetic nephropathy Status: Acute (6) Anemia in chronic kidney disease (CKD) Status: Acute (7) End stage renal disease Status: Acute - Assessment and Plan (Free Text) Assessment: maintain hd [facility] rehab placement urology management
[2017-04-01] MEDS: (Lantus) Insulin Glargine, Recombinant SC SCH (22:10)
[2017-04-02] MEDS: (Novolog) Insulin Aspart, Recombinant 100 u/ml 10 ml vial SC SCH ×4 (08:29→22:29)
[2017-04-02] MEDS: Metoprolol Succinate 25 mg XL Tab PO SCH (09:07)
[2017-04-02] MEDS: Megestrol Acetate 40 mg/ml Cup PO SCH (09:07)
[2017-04-02] MEDS: Lidocaine 5% Patch TD SCH (09:07)
--- NOTE | 2017-04-02 09:30 | CP.PCM.PN ---
Subjective - Date & Time of Evaluation Date of Evaluation: 04/02/17 Time of Evaluation: 08:30 - Subjective Subjective: patient seen- no complaint- neck better discussion of subacute- patient is aware of plans no diarrhea no fever no other complaints on scheduled HD Objective - Vital Signs/Intake and Output Vital Signs (last 24 hours): Temp Pulse Resp BP Pulse Ox 97.7 F 70 20 102/58 L 100 04/02/17 07:47 04/02/17 07:47 04/02/17 07:47 04/02/17 07:47 04/02/17 07:47 Intake and Output: 04/02/17 04/02/17 06:59 18:59 Intake Total 118 Balance 118 - Medications Medications: Current Medications Clopidogrel Bisulfate (Plavix) 75 mg PO DAILY [facility] Last Admin: 03/27/17 09:13 Dose: 75 mg Diltiazem HCl (Cardizem) 60 mg PO Q8 [facility] Last Admin: 04/02/17 05:48 Dose: 60 mg Famotidine (Pepcid) 20 mg PO DAILY [facility] Last Admin: 04/02/17 09:07 Dose: 20 mg Glipizide (Glucotrol) 5 mg PO DAILY [facility] Last Admin: 04/02/17 09:07 Dose: 5 mg Insulin Aspart (Novolog) 0 unit SC [facility] PRN Reason: Protocol Last Admin: 04/02/17 08:29 Dose: 3 unit Insulin Glargine (Lantus) 45 unit SC HS [facility] Last Admin: 04/01/17 22:10 Dose: 45 units Lidocaine (Lidoderm) 1 ea TD DAILY [facility] Last Admin: 04/02/17 09:07 Dose: 1 ea Megestrol Acetate (Megace) 400 mg PO DAILY [facility] Last Admin: 04/02/17 09:07 Dose: 400 mg Metoprolol Succinate (Toprol Xl) 25 mg PO DAILY [facility] Last Admin: 04/02/17 09:07 Dose: 25 mg Rosuvastatin Calcium (Crestor) 5 mg PO HS [facility] Last Admin: 04/01/17 22:09 Dose: 5 mg - Labs Labs: 03/31/17 07:14 03/30/17 20:24 PT 11.8 SECONDS (9.7-12.2) 03/24/17 06:13 INR 1.1 03/24/17 06:13 APTT 33 SECONDS (21-34) 03/20/17 16:45 - Constitutional Appears: Well, No Acute Distress - Head Exam Head Exam: ATRAUMATIC, NORMOCEPHALIC - Eye Exam Eye Exam: absent: Nystagmus - ENT Exam ENT Exam: Mucous Membranes Moist - Neck Exam Neck Exam: Full ROM. absent: Tenderness - Respiratory Exam Respiratory Exam: Clear to Ausculation Bilateral, NORMAL BREATHING PATTERN - Cardiovascular Exam Cardiovascular Exam: REGULAR RHYTHM - GI/Abdominal Exam GI & Abdominal Exam: Soft, Normal Bowel Sounds. absent: Tenderness - Neurological Exam Neurological Exam: Alert, Awake, Normal Gait, Oriented x3 - Psychiatric Exam Psychiatric exam: Normal Affect, Normal Mood Assessment and Plan - Assessment and Plan (Free Text) Assessment: Patient with ESRD on scheduled HD Fluid overload corrected CAD history of CABG , A FIB- controlled, further cardiac management as out patient as per cardio off aspirin blood thinner due to blededing/hematuria/hematoma Hypertension controlled IDDM2- improving - continue to adjust insulin accordingly, Dietary discussion Anemia of chronic condition- iron supplementation Debility- for subacute- in progress
--- NOTE | 2017-04-02 13:57 | CP.PCM.PN ---
Subjective - Date & Time of Evaluation Date of Evaluation: 04/02/17 Time of Evaluation: 09:00 - Subjective Subjective: no distress probable d/c HD today no chest pain no acute sob appetite fair weak no abdominal pain no urinary changes no rash no joint pain no headache Objective - Vital Signs/Intake and Output Vital Signs (last 24 hours): Temp Pulse Resp BP Pulse Ox 97.7 F 70 20 102/58 L 100 04/02/17 07:47 04/02/17 08:30 04/02/17 07:47 04/02/17 07:47 04/02/17 07:47 Intake and Output: 04/02/17 04/02/17 06:59 18:59 Intake Total 118 Balance 118 - Medications Medications: Current Medications Clopidogrel Bisulfate (Plavix) 75 mg PO DAILY [facility] Last Admin: 03/27/17 09:13 Dose: 75 mg Diltiazem HCl (Cardizem) 60 mg PO Q8 [facility] Last Admin: 04/02/17 05:48 Dose: 60 mg Famotidine (Pepcid) 20 mg PO DAILY [facility] Last Admin: 04/02/17 09:07 Dose: 20 mg Ferrous Gluconate (Fergon) 324 mg PO TID [facility] Last Admin: 04/02/17 10:56 Dose: 324 mg Glipizide (Glucotrol) 5 mg PO DAILY [facility] Last Admin: 04/02/17 09:07 Dose: 5 mg Insulin Aspart (Novolog) 0 unit SC [facility] PRN Reason: Protocol Last Admin: 04/02/17 08:29 Dose: 3 unit Insulin Glargine (Lantus) 50 unit SC HS [facility] Lidocaine (Lidoderm) 1 ea TD DAILY [facility] Last Admin: 04/02/17 09:07 Dose: 1 ea Megestrol Acetate (Megace) 400 mg PO DAILY [facility] Last Admin: 04/02/17 09:07 Dose: 400 mg Metoprolol Succinate (Toprol Xl) 25 mg PO DAILY [facility] Last Admin: 04/02/17 09:07 Dose: 25 mg Rosuvastatin Calcium (Crestor) 5 mg PO HS [facility] Last Admin: 04/01/17 22:09 Dose: 5 mg - Labs Labs: 03/31/17 07:14 03/30/17 20:24 PT 11.8 SECONDS (9.7-12.2) 03/24/17 06:13 INR 1.1 03/24/17 06:13 APTT 33 SECONDS (21-34) 03/20/17 16:45 - Constitutional Appears: No Acute Distress, Chronically Ill - Eye Exam Eye Exam: EOMI, Normal appearance - ENT Exam ENT Exam: Mucous Membranes Moist - Neck Exam Neck Exam: Full ROM. absent: Lymphadenopathy - Respiratory Exam Respiratory Exam: Decreased Breath Sounds. absent: Accessory Muscle Use - Cardiovascular Exam Cardiovascular Exam: Irregular Rhythm. absent: Rubs - GI/Abdominal Exam GI & Abdominal Exam: Soft. absent: Tenderness - Extremities Exam Extremities Exam: absent: Pedal Edema Assessment and Plan - Assessment and Plan (Free Text) Assessment: dialysis dependent afib cardiomyopathy prostate cancer HD today rehab placement continue same
[2017-04-02] MEDS: (Lantus) Insulin Glargine, Recombinant SC SCH (22:28)
[2017-04-03] MEDS: (Novolog) Insulin Aspart, Recombinant 100 u/ml 10 ml vial SC SCH ×4 (09:05→22:10)
--- NOTE | 2017-04-03 09:53 | CP.PCM.PN ---
Subjective - Date & Time of Evaluation Date of Evaluation: 04/03/17 Time of Evaluation: 09:51 - Subjective Subjective: Still very weak but better BP low still- especially at dialysis s/p dialysis 04/02- BP was low again no other complaint Objective - Vital Signs/Intake and Output Vital Signs (last 24 hours): Temp Pulse Resp BP Pulse Ox 97.4 F L 86 18 100/40 L 95 04/03/17 08:14 04/03/17 08:54 04/03/17 08:14 04/03/17 08:14 04/03/17 08:14 Intake and Output: 04/03/17 04/03/17 06:59 18:59 Intake Total 358 Balance 358 - Medications Medications: Current Medications Clopidogrel Bisulfate (Plavix) 75 mg PO DAILY [facility] Last Admin: 03/27/17 09:13 Dose: 75 mg Diltiazem HCl (Cardizem) 30 mg PO Q8 [facility] Famotidine (Pepcid) 20 mg PO DAILY [facility] Last Admin: 04/02/17 09:07 Dose: 20 mg Ferrous Gluconate (Fergon) 324 mg PO TID [facility] Last Admin: 04/02/17 22:27 Dose: 324 mg Glipizide (Glucotrol) 5 mg PO DAILY [facility] Last Admin: 04/02/17 09:07 Dose: 5 mg Insulin Aspart (Novolog) 0 unit SC [facility] PRN Reason: Protocol Last Admin: 04/03/17 09:05 Dose: Not Given Insulin Glargine (Lantus) 50 unit SC HS [facility] Last Admin: 04/02/17 22:28 Dose: 50 units Lidocaine (Lidoderm) 1 ea TD DAILY [facility] Last Admin: 04/02/17 09:07 Dose: 1 ea Megestrol Acetate (Megace) 400 mg PO DAILY [facility] Last Admin: 04/02/17 09:07 Dose: 400 mg Metoprolol Succinate (Toprol Xl) 25 mg PO DAILY [facility] Last Admin: 04/02/17 09:07 Dose: 25 mg Rosuvastatin Calcium (Crestor) 5 mg PO HS [facility] Last Admin: 04/02/17 22:27 Dose: 5 mg - Labs Labs: 03/31/17 07:14 03/30/17 20:24 PT 11.8 SECONDS (9.7-12.2) 03/24/17 06:13 INR 1.1 03/24/17 06:13 APTT 33 SECONDS (21-34) 03/20/17 16:45 - Constitutional Appears: No Acute Distress, Chronically Ill - Head Exam Head Exam: ATRAUMATIC, NORMAL INSPECTION - Eye Exam Eye Exam: EOMI, Normal appearance - Neck Exam Neck Exam: Normal Inspection. absent: Tenderness - Respiratory Exam Respiratory Exam: Clear to Ausculation Bilateral, NORMAL BREATHING PATTERN - Cardiovascular Exam Cardiovascular Exam: Irregular Rhythm, +S1 - GI/Abdominal Exam GI & Abdominal Exam: Soft. absent: Tenderness - Extremities Exam Extremities Exam: Normal Inspection. 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
[2017-04-03] MEDS: Megestrol Acetate 40 mg/ml Cup PO SCH (10:23)
[2017-04-03] MEDS: Lidocaine 5% Patch TD SCH (10:23)
[2017-04-03] MEDS: Metoprolol Succinate 25 mg XL Tab PO SCH (10:24)
--- NOTE | 2017-04-03 11:37 | CP.PCM.PN ---
Subjective - Date & Time of Evaluation Date of Evaluation: 04/03/17 Time of Evaluation: 10:30 - Subjective Subjective: patient seen had episode of low sugar- after dialysis BP noted also after dialysis was low- cardizem held no cough no fever BM okay awaiting for subacute not much bleeding episode- still off heparin and aspirin Objective - Vital Signs/Intake and Output Vital Signs (last 24 hours): Temp Pulse Resp BP Pulse Ox 97.4 F L 86 18 100/40 L 95 04/03/17 08:14 04/03/17 08:54 04/03/17 08:14 04/03/17 08:14 04/03/17 08:14 Intake and Output: 04/03/17 04/03/17 06:59 18:59 Intake Total 358 Balance 358 - Medications Medications: Current Medications Clopidogrel Bisulfate (Plavix) 75 mg PO DAILY [facility] Last Admin: 03/27/17 09:13 Dose: 75 mg Diltiazem HCl (Cardizem) 30 mg PO Q8 [facility] Famotidine (Pepcid) 20 mg PO DAILY [facility] Last Admin: 04/03/17 10:23 Dose: 20 mg Ferrous Gluconate (Fergon) 324 mg PO TID [facility] Last Admin: 04/03/17 10:24 Dose: 324 mg Glipizide (Glucotrol) 5 mg PO DAILY [facility] Last Admin: 04/03/17 10:23 Dose: 5 mg Insulin Aspart (Novolog) 0 unit SC [facility] PRN Reason: Protocol Last Admin: 04/03/17 09:05 Dose: Not Given Insulin Glargine (Lantus) 50 unit SC HS [facility] Last Admin: 04/02/17 22:28 Dose: 50 units Lidocaine (Lidoderm) 1 ea TD DAILY [facility] Last Admin: 04/03/17 10:23 Dose: 1 ea Megestrol Acetate (Megace) 400 mg PO DAILY [facility] Last Admin: 04/03/17 10:23 Dose: 400 mg Metoprolol Succinate (Toprol Xl) 25 mg PO DAILY [facility] Last Admin: 04/03/17 10:24 Dose: Not Given Rosuvastatin Calcium (Crestor) 5 mg PO HS [facility] Last Admin: 04/02/17 22:27 Dose: 5 mg - Labs Labs: 03/31/17 07:14 03/30/17 20:24 PT 11.8 SECONDS (9.7-12.2) 03/24/17 06:13 INR 1.1 03/24/17 06:13 APTT 33 SECONDS (21-34) 03/20/17 16:45 - Constitutional Appears: Well, Chronically Ill - Head Exam Head Exam: ATRAUMATIC, NORMOCEPHALIC - Eye Exam Eye Exam: Normal appearance - ENT Exam ENT Exam: Mucous Membranes Moist - Respiratory Exam Respiratory Exam: Clear to Ausculation Bilateral, NORMAL BREATHING PATTERN - Cardiovascular Exam Cardiovascular Exam: Irregular Rhythm - GI/Abdominal Exam GI & Abdominal Exam: Soft, Normal Bowel Sounds. absent: Tenderness - Extremities Exam Extremities Exam: Full ROM - Back Exam Back Exam: NORMAL INSPECTION. absent: tenderness - Neurological Exam Neurological Exam: Alert, Awake, Normal Gait, Oriented x3 - Psychiatric Exam Psychiatric exam: Normal Affect, Normal Mood - Skin Skin Exam: Intact, Normal Color Assessment and Plan - Assessment and Plan (Free Text) Assessment: Patient with ESRD on HD episodes of hypotension post dialysis- BP meds held accordingly IDDM@- Episode of hypoglycemia- fluctuating sugar- insulin adjusted accordingly Hypertension with low BP- med adjsuted accordingly Atrial Fibrillation controlled CAD -no chest pain- stable Hematuria -prostate ca- hematuria improving -no further procedure for now discussion with Urology Debility- subacute in progress
[2017-04-03] MEDS: (Lantus) Insulin Glargine, Recombinant SC SCH (22:18)
--- NOTE | 2017-04-03 23:51 | CP.PCM.PN ---
Subjective - Date & Time of Evaluation Date of Evaluation: 04/03/17 Time of Evaluation: 19:25 - Subjective Subjective: Patient seen and evaluated Episodes of hypotension Cardizem held ASA, Plavix held due to bleeding Objective - Vital Signs/Intake and Output Vital Signs (last 24 hours): Temp Pulse Resp BP Pulse Ox 98.5 F 70 16 125/65 97 04/03/17 16:34 04/03/17 21:46 04/03/17 16:34 04/03/17 21:46 04/03/17 16:34 Intake and Output: 04/03/17 04/04/17 18:59 06:59 Intake Total 240 Balance 240 - Medications Medications: Current Medications Clopidogrel Bisulfate (Plavix) 75 mg PO DAILY [facility] Last Admin: 03/27/17 09:13 Dose: 75 mg Diltiazem HCl (Cardizem) 30 mg PO Q8 [facility] Last Admin: 04/03/17 21:44 Dose: 30 mg Famotidine (Pepcid) 20 mg PO DAILY [facility] Last Admin: 04/03/17 10:23 Dose: 20 mg Ferrous Gluconate (Fergon) 324 mg PO TID [facility] Last Admin: 04/03/17 17:27 Dose: 324 mg Glipizide (Glucotrol) 5 mg PO DAILY [facility] Last Admin: 04/03/17 10:23 Dose: 5 mg Insulin Aspart (Novolog) 0 unit SC [facility] PRN Reason: Protocol Last Admin: 04/03/17 22:10 Dose: Not Given Insulin Glargine (Lantus) 50 unit SC HS [facility] Last Admin: 04/03/17 22:18 Dose: 50 units Lidocaine (Lidoderm) 1 ea TD DAILY [facility] Last Admin: 04/03/17 10:23 Dose: 1 ea Megestrol Acetate (Megace) 400 mg PO DAILY [facility] Last Admin: 04/03/17 10:23 Dose: 400 mg Metoprolol Succinate (Toprol Xl) 25 mg PO DAILY [facility] Last Admin: 04/03/17 10:24 Dose: Not Given Rosuvastatin Calcium (Crestor) 5 mg PO HS [facility] Last Admin: 04/03/17 21:44 Dose: 5 mg - Labs Labs: 03/31/17 07:14 03/30/17 20:24 PT 11.8 SECONDS (9.7-12.2) 03/24/17 06:13 INR 1.1 03/24/17 06:13 APTT 33 SECONDS (21-34) 03/20/17 16:45
[2017-04-04 07:32] LABS: HEMATOCRIT 31.6 % (35.0-51.0); MEAN CELL VOLUME 82.8 fL (80.0-94.0); MEAN CORPUSCULAR HEMOGLOBIN 26.8 pg (27.0-31.0); MEAN CORPUSCULAR HGB CONC 32.3 g/dL (33.0-37.0); MEAN PLATELET VOLUME 8.9 fL (7.2-11.7); RED CELL DISTRIBUTION WIDTH 18.5 % (11.5-14.5); WHITE BLOOD COUNT 15.1 K/uL (4.8-10.8)
[2017-04-04 07:46] LABS: ALB/GLOB RATIO 1.1 (1.0-2.1); BILIRUBIN,TOTAL 1.2 mg/dL (0.2-1.3); CALCIUM 8.3 mg/dl (8.6-10.4); PHOSPHOROUS 4.6 mg/dL (2.5-4.5); POTASSIUM 3.5 mmol/L (3.6-5.2); TOTAL PROTEIN 6.3 g/dL (6.3-8.3)
[2017-04-04] MEDS: (Novolog) Insulin Aspart, Recombinant 100 u/ml 10 ml vial SC SCH ×2 (08:47→12:32)
[2017-04-04] MEDS: Metoprolol Succinate 25 mg XL Tab PO SCH (09:37)
[2017-04-04] MEDS: Megestrol Acetate 40 mg/ml Cup PO SCH (09:37)
[2017-04-04] MEDS: Lidocaine 5% Patch TD SCH (09:45)
--- NOTE | 2017-04-04 09:47 | CP.PCM.PN ---
Subjective - Date & Time of Evaluation Date of Evaluation: 04/04/17 Time of Evaluation: 09:45 - Subjective Subjective: Alert, feels much better Appetite improved BP stabilized- cardizem dose decreased afebrile- still with leukocytosis no other new complaint Objective - Vital Signs/Intake and Output Vital Signs (last 24 hours): Temp Pulse Resp BP Pulse Ox 98.1 F 87 20 156/70 H 100 04/03/17 23:15 04/04/17 05:44 04/04/17 05:44 04/04/17 05:44 04/04/17 05:44 Intake and Output: 04/04/17 04/04/17 06:59 18:59 Intake Total 358 Balance 358 - Medications Medications: Current Medications Clopidogrel Bisulfate (Plavix) 75 mg PO DAILY [facility] Last Admin: 03/27/17 09:13 Dose: 75 mg Diltiazem HCl (Cardizem) 30 mg PO Q8 [facility] Last Admin: 04/04/17 05:37 Dose: 30 mg Famotidine (Pepcid) 20 mg PO DAILY [facility] Last Admin: 04/03/17 10:23 Dose: 20 mg Ferrous Gluconate (Fergon) 324 mg PO TID [facility] Last Admin: 04/03/17 17:27 Dose: 324 mg Glipizide (Glucotrol) 5 mg PO DAILY [facility] Last Admin: 04/03/17 10:23 Dose: 5 mg Insulin Aspart (Novolog) 0 unit SC [facility] PRN Reason: Protocol Last Admin: 04/04/17 08:47 Dose: 2 unit Insulin Glargine (Lantus) 50 unit SC HS [facility] Last Admin: 04/03/17 22:18 Dose: 50 units Lidocaine (Lidoderm) 1 ea TD DAILY [facility] Last Admin: 04/03/17 10:23 Dose: 1 ea Megestrol Acetate (Megace) 400 mg PO DAILY [facility] Last Admin: 04/03/17 10:23 Dose: 400 mg Metoprolol Succinate (Toprol Xl) 25 mg PO DAILY [facility] Last Admin: 04/03/17 10:24 Dose: Not Given Rosuvastatin Calcium (Crestor) 5 mg PO HS [facility] Last Admin: 04/03/17 21:44 Dose: 5 mg - Labs Labs: 04/04/17 06:58 04/04/17 06:58 PT 11.8 SECONDS (9.7-12.2) 03/24/17 06:13 INR 1.1 03/24/17 06:13 APTT 33 SECONDS (21-34) 03/20/17 16:45 - Constitutional Appears: No Acute Distress, Chronically Ill - Head Exam Head Exam: ATRAUMATIC, NORMAL INSPECTION - Eye Exam Eye Exam: EOMI, Normal appearance - Neck Exam Neck Exam: Normal Inspection. absent: Tenderness - Respiratory Exam Respiratory Exam: Clear to Ausculation Bilateral, NORMAL BREATHING PATTERN - Cardiovascular Exam Cardiovascular Exam: Irregular Rhythm, +S1 - GI/Abdominal Exam GI & Abdominal Exam: Soft. absent: Tenderness - Extremities Exam Extremities Exam: Normal Inspection. absent: Tenderness - Neurological Exam Neurological Exam: Alert, CN II-XII Intact - Skin Skin Exam: Dry, Warm Assessment and Plan (1) Prostate CA Status: Acute (2) Type 2 diabetes mellitus with diabetic nephropathy Status: Acute (3) Atrial fibrillation Status: Acute (4) CHF (congestive heart failure) Status: Acute (5) COPD (chronic obstructive pulmonary disease) with emphysema Status: Chronic (6) ESRD (end stage renal disease) on dialysis Status: Chronic - Assessment and Plan (Free Text) Plan: Same dialysis - today and MWF- less UF same meds dialysis as outpatient will be set up
--- NOTE | 2017-04-04 13:25 | CP.PCM.PN ---
Subjective - Date & Time of Evaluation Date of Evaluation: 04/04/17 Time of Evaluation: 10:30 - Subjective Subjective: patient seen- reports being seen by renal to be transferred to [place] on scheduled dialysis awaiting subacute no other concern no bleeding episode appetite good BM okay no chest pain has life vest on Objective - Vital Signs/Intake and Output Vital Signs (last 24 hours): Temp Pulse Resp BP Pulse Ox 98.1 F 90 20 100/57 L 98 04/04/17 07:00 04/04/17 09:00 04/04/17 07:00 04/04/17 07:00 04/04/17 07:00 Intake and Output: 04/04/17 04/04/17 06:59 18:59 Intake Total 358 Balance 358 - Medications Medications: Current Medications Clopidogrel Bisulfate (Plavix) 75 mg PO DAILY [facility] Last Admin: 03/27/17 09:13 Dose: 75 mg Diltiazem HCl (Cardizem) 30 mg PO Q8 [facility] Last Admin: 04/04/17 05:37 Dose: 30 mg Famotidine (Pepcid) 20 mg PO DAILY [facility] Last Admin: 04/04/17 09:37 Dose: 20 mg Ferrous Gluconate (Fergon) 324 mg PO TID [facility] Last Admin: 04/04/17 09:37 Dose: 324 mg Glipizide (Glucotrol) 5 mg PO DAILY [facility] Last Admin: 04/04/17 09:37 Dose: 5 mg Insulin Aspart (Novolog) 0 unit SC [facility] PRN Reason: Protocol Last Admin: 04/04/17 12:32 Dose: 3 unit Insulin Glargine (Lantus) [address] [facility] Last Admin: 04/03/17 22:18 Dose: 50 units Lidocaine (Lidoderm) 1 ea TD DAILY [facility] Last Admin: 04/04/17 09:45 Dose: Not Given Megestrol Acetate (Megace) 400 mg PO DAILY [facility] Last Admin: 04/04/17 09:37 Dose: 400 mg Metoprolol Succinate (Toprol Xl) 25 mg PO DAILY [facility] Last Admin: 04/04/17 09:37 Dose: 25 mg Rosuvastatin Calcium (Crestor) 5 mg PO HS [facility] Last Admin: 04/03/17 21:44 Dose: 5 mg - Labs Labs: 04/04/17 06:58 04/04/17 06:58 PT 11.8 SECONDS (9.7-12.2) 03/24/17 06:13 INR 1.1 03/24/17 06:13 APTT 33 SECONDS (21-34) 03/20/17 16:45 - Constitutional Appears: Non-toxic, No Acute Distress - Head Exam Head Exam: ATRAUMATIC, NORMOCEPHALIC - Eye Exam Eye Exam: Normal appearance - ENT Exam ENT Exam: Mucous Membranes Moist - Respiratory Exam Respiratory Exam: Clear to Ausculation Bilateral, NORMAL BREATHING PATTERN - Cardiovascular Exam Cardiovascular Exam: Irregular Rhythm - GI/Abdominal Exam GI & Abdominal Exam: Soft, Normal Bowel Sounds. absent: Tenderness - Extremities Exam Extremities Exam: Full ROM. absent: Pedal Edema - Back Exam Back Exam: absent: rash noted, tenderness - Neurological Exam Neurological Exam: Alert, Awake, Normal Gait, Oriented x3 - Psychiatric Exam Psychiatric exam: Normal Affect, Normal Mood - Skin Skin Exam: Intact, Normal Color Assessment and Plan - Assessment and Plan (Free Text) Assessment: Patient with ESRD - to be transferred to [place] with scheduled HD Hypertension- low BP - adjusting medications CAD -Adal FIB on life vest on medications with side effect on aspirin heparin -hematuri,hematoma off meds IDDM2-with fluctuating sugar - adjusting insulin -continue sliding Anemia- stable no bleeding Debility-to subacute patient aware of plan and condition
--- NOTE | 2017-04-04 14:01 | CP.PCM.DIS ---
Provider - Provider Date of Admission: 03/20/17 17:42 Attending physician: Karissa Alvarez MD Time Spent in preparation of Discharge (in minutes): 30 Hospital Course - Lab Results Lab Results: Micro Results 03/26/17 22:47 Urine Urine Culture - Final 10-50,000 CFU/ML. MULTIPLE SPECIES. PROBABLE CONTAMINATION. Most Recent Lab Values WBC 15.1 K/uL (4.8-10.8) H 04/04/17 06:58 RBC 3.81 Mil/uL (4.40-5.90) L 04/04/17 06:58 Hgb 10.2 g/dL (12.0-18.0) L 04/04/17 06:58 Hct 31.6 % (35.0-51.0) L 04/04/17 06:58 MCV 82.8 fL (80.0-94.0) 04/04/17 06:58 MCH 26.8 pg (27.0-31.0) L 04/04/17 06:58 MCHC 32.3 g/dL (33.0-37.0) L 04/04/17 06:58 RDW 18.5 % (11.5-14.5) H 04/04/17 06:58 Plt Count 285 K/uL (130-400) 04/04/17 06:58 MPV 8.9 fL (7.2-11.7) 04/04/17 06:58 Neut % (Auto) 78.8 % (50.0-75.0) H 03/31/17 07:14 Lymph % (Auto) 8.1 % (20.0-40.0) L 03/31/17 07:14 [place] % (Auto) 11.5 % (0.0-10.0) H 03/31/17 07:14 Eos % (Auto) 1.2 % (0.0-4.0) 03/31/17 07:14 Baso % (Auto) 0.4 % (0.0-2.0) 03/31/17 07:14 Neut # 12.2 K/uL (1.8-7.0) H 03/31/17 07:14 Lymph # 1.3 K/uL (1.0-4.3) 03/31/17 07:14 [place] # 1.8 K/uL (0.0-0.8) H 03/31/17 07:14 Eos # 0.2 K/uL (0.0-0.7) 03/31/17 07:14 Baso # 0.1 K/uL (0.0-0.2) 03/31/17 07:14 Neutrophils % (Manual) 77 % (50-75) H 03/31/17 07:14 Lymphocytes % (Manual) 11 % (20-40) L 03/31/17 07:14 Reactive Lymphs % 1 % (0-0) H 03/28/17 19:57 Monocytes % (Manual) 12 % (0-10) H 03/31/17 07:14 Eosinophils % (Manual) 4 % (0-4) 03/28/17 19:57 Basophils % (Manual) 1 % (0-2) 03/28/17 19:57 Platelet Estimate Normal (NORMAL) 03/31/17 07:14 Large Platelets Present 03/20/17 15:53 Hypochromasia (manual) Slight 03/31/17 07:14 Poikilocytosis (manual Slight 03/31/17 07:14 Anisocytosis (manual) Slight 03/31/17 07:14 Target Cells Slight 03/20/17 15:53 Ovalocytes Slight 03/20/17 15:53 PT 11.8 SECONDS (9.7-12.2) 03/24/17 06:13 INR 1.1 03/24/17 06:13 APTT 33 SECONDS (21-34) 03/20/17 16:45 Sodium 134 mmol/L (132-148) 04/04/17 06:58 Potassium 3.5 mmol/L (3.6-5.2) L 04/04/17 06:58 Chloride 94 mmol/L (98-107) L 04/04/17 06:58 Carbon Dioxide 27 mmol/L (22-30) 04/04/17 06:58 Anion Gap 16 (10-20) 04/04/17 06:58 BUN 63 mg/dL (9-20) H 04/04/17 06:58 Creatinine 5.4 mg/dL (0.8-1.5) H 04/04/17 06:58 Est GFR ( Amer) 12 04/04/17 06:58 Est GFR (Non-Af Amer) 10 04/04/17 06:58 POC Glucose (mg/dL) 215 mg/dL (65-110) H 04/04/17 11:41 Random Glucose 118 mg/dL (75-110) H 04/04/17 06:58 Hemoglobin A1c 6.9 % (4.2-6.5) H D 03/24/17 16:04 Calcium 8.3 mg/dl (8.6-10.4) L 04/04/17 06:58 Phosphorus 4.6 mg/dL (2.5-4.5) H 04/04/17 06:58 Total Bilirubin 1.2 mg/dL (0.2-1.3) 04/04/17 06:58 AST 19 U/L (17-59) 04/04/17 06:58 ALT 28 U/L (21-72) 04/04/17 06:58 Alkaline Phosphatase 79 U/L (38-126) 04/04/17 06:58 Total Creatine Kinase 34 U/L (55-170) L 03/21/17 07:38 CK-MB (Mass) 0.81 ng/mL (0.0-3.38) 03/21/17 07:38 Troponin I 0.0940 ng/mL (0.00-0.120) 03/20/17 16:46 Troponin I, Quant 0.0980 ng/mL (0.00-0.120) 03/21/17 07:38 NT-Pro-B Natriuret Pep 08503 pg/mL (0-900) H 03/20/17 16:46 Total Protein 6.3 g/dL (6.3-8.3) 04/04/17 06:58 Albumin 3.2 g/dL (3.5-5.0) L 04/04/17 06:58 Globulin 3.0 gm/dL (2.2-3.9) 04/04/17 06:58 Albumin/Globulin Ratio 1.1 (1.0-2.1) 04/04/17 06:58 TSH 3rd Generation 1.13 mIU/L (0.46-4.68) 03/21/17 07:38 Urine Color Red (YELLOW) 03/26/17 22:33 Urine Clarity Turbid (Clear) 03/26/17 22:33 Urine pH 6.0 (5.0-8.0) 03/26/17 22:33 Ur Specific [place] 1.031 (1.003-1.030) H 03/26/17 22:33 Urine Protein 1+ mg/dL (NEGATIVE) H 03/26/17 22:33 Urine Glucose (UA) 2+ mg/dL (Normal) H 03/26/17 22:33 Urine Ketones Trace mg/dL (NEGATIVE) 03/26/17 22: Urine Blood 3+ (NEGATIVE) H 03/26/17 22:33 Urine Nitrate Negative (NEGATIVE) 03/26/17 22:33 Urine Bilirubin Negative (NEGATIVE) 03/26/17 22: Urine Urobilinogen Normal mg/dL (0.2-1.0) 03/26/17 22:33 Ur Leukocyte Esterase Neg [place]/uL (Negative) 03/26/17 22:33 Urine RBC (Auto) 11504 /hpf (0-3) H 03/26/17 22:33 Urine Bacteria Occ (<OCC) H 03/26/17 22:33 Hep B Core IgM Ab Negative (NEGATIVE) 04/03/17 11:25 - Hospital Course Hospital Course: Patient admitted for recurrent A Fib- fuid overload, was placed on Lasix HD, and improved- went on cath- but does not need any further cardiac treatment- was placed on cardizem and improved , was also placed on life vest IDDM- sugar has been fluctuating with adjustment of insulin- patient was on aspirin and heparin but bled-blood clots per urine and hematoma patient went into cystoscopy but had arrhythmia and was cancelled aspirin and heparin were held and bleeding stopped discussed conflict od stroke prevention and bleeding agreed to subacute but finally decided to go home Discharge Exam - Head Exam Head Exam: ATRAUMATIC, NORMOCEPHALIC - Eye Exam Eye Exam: Normal appearance. absent: Nystagmus - ENT Exam ENT Exam: Mucous Membranes Moist - Neck Exam Neck exam: Full Rom - Respiratory Exam Respiratory Exam: Clear to PA & Lateral, NORMAL BREATHING PATTERN - Cardiovascular Exam Cardiovascular Exam: Irregular Rhythm - GI/Abdominal Exam GI & Abdominal Exam: Normal Bowel Sounds, Soft. absent: Tenderness - Neurological Exam Neurological exam: Alert, Normal Gait, Oriented x3 - Psychiatric Exam Psychiatric exam: Normal Affect, Normal Mood - Skin Skin Exam: Intact, Normal Color Discharge Plan - Follow Up Plan Condition: FAIR Disposition: HOME/ ROUTINE
--- NOTE | 2017-04-04 14:39 | CP.PCM.PN ---
Subjective - Date & Time of Evaluation Date of Evaluation: 04/04/17 Time of Evaluation: 14:36 - Subjective Subjective: PT CLEARED FOR D/C TODAY. ORIGINALLY PT WAS TO GO TO [facility], HOWEVER, TODAY HE IS REQUESTING TO GO HOME. RX GIVEN TO CM FOR HOME PHY THER. DISCUSSED THIS WITH DR. JAMIL AND OK PER HER TO SEND PT HOME. PT TO CONTINUE TAKING CARDIZEM Q[address] JAMIL. HOLD ASA AND PLAVIX UNTIL SEEN BY PMD NEXT WEEK. NO FURTHER ORDERS. Objective - Vital Signs/Intake and Output Vital Signs (last 24 hours): Temp Pulse Resp BP Pulse Ox 98.1 F 90 20 100/57 L 98 04/04/17 07:00 04/04/17 09:00 04/04/17 07:00 04/04/17 07:00 04/04/17 07:00 Intake and Output: 04/04/17 04/04/17 06:59 18:59 Intake Total 358 Balance 358 - Medications Medications: Current Medications Clopidogrel Bisulfate (Plavix) 75 mg PO DAILY [facility] Last Admin: 03/27/17 09:13 Dose: 75 mg Diltiazem HCl (Cardizem) 30 mg PO Q8 [facility] Last Admin: 04/04/17 05:37 Dose: 30 mg Famotidine (Pepcid) 20 mg PO DAILY [facility] Last Admin: 04/04/17 09:37 Dose: 20 mg Ferrous Gluconate (Fergon) 324 mg PO TID [facility] Last Admin: 04/04/17 09:37 Dose: 324 mg Glipizide (Glucotrol) 5 mg PO DAILY [facility] Last Admin: 04/04/17 09:37 Dose: 5 mg Insulin Aspart (Novolog) 0 unit SC [facility] PRN Reason: Protocol Last Admin: 04/04/17 12:32 Dose: 3 unit Insulin Glargine (Lantus) 50 unit SC HS [facility] Last Admin: 04/03/17 22:18 Dose: 50 units Lidocaine (Lidoderm) 1 ea TD DAILY [facility] Last Admin: 04/04/17 09:45 Dose: Not Given Megestrol Acetate (Megace) 400 mg PO DAILY [facility] Last Admin: 04/04/17 09:37 Dose: 400 mg Metoprolol Succinate (Toprol Xl) 25 mg PO DAILY [facility] Last Admin: 04/04/17 09:37 Dose: 25 mg Rosuvastatin Calcium (Crestor) 5 mg PO HS [facility] Last Admin: 04/03/17 21:44 Dose: 5 mg - Labs Labs: 04/04/17 06:58 04/04/17 06:58 PT 11.8 SECONDS (9.7-12.2) 03/24/17 06:13 INR 1.1 03/24/17 06:13 APTT 33 SECONDS (21-34) 03/20/17 16:45
--- NOTE | 2017-04-04 14:43 | PCM.HF ---
Heart Failure Core Measure - Heart Failure Ejection Fraction: 40 % or Greater CLAUDE Inhibitor Prescribed: No Contraindication/Reason for not providing: EF > 40 Beta-Saira Prescribed: Metoprolol Succinate Angiotensin II Receptor Saira Prescribed: No Contraindication/Reason for not providing: EF > 40 AnticoagulationTherapy for Atrial Fibrillation/Atrialflutter: No Contraindication/Reason for not providing: HELD 2/2 HEMATURIA AND RISK OF BLEEDING Aldosterone Antagonist Prescribed: No Contraindication/Reason for not providing: EF > 40 Hydralazine Nitrate Prescribed: No Contraindication/Reason for not providing: EF > 40; ON CARDIZEM Implantable Cardioverter Defibrillator Therapy: No Contraindication/Reason for not providing: EF > 40 Cardiac Resynchronization Therapy Prescribed: No Contraindication/Reason for not providing: EF > 40 - Follow up Will be discharged to: Home Follow Up Date (must be within 7 days from discharge): 04/10/17 Follow Up Time: 09:00
[2017-04-04 15:11] VITALS: PULSE 66; RESP 16
[2017-04-04 18:39] VITALS: BP 91/44; TEMP 98.1; O2SAT 100
== END 2017-04-04 19:20 | disposition home or self-care (01) | DRG 286 ==
LOC: C.ER 15:21 → C.9E 17:42 → C.6T 18:31
PROVIDERS: ADMIT Internal Medicine; ATTEND Internal Medicine
PROC: 4A023N7 Measurement of Cardiac Sampling and Pressure, Left Heart, Percutaneous Approach (ICD-10-PCS; principal; 2017-03-25)
PROC: B2111ZZ Fluoroscopy of Multiple Coronary Arteries using Low Osmolar Contrast (ICD-10-PCS; 2017-03-25)
PROC: B21F1ZZ Fluoroscopy of Other Bypass Graft using Low Osmolar Contrast (ICD-10-PCS; 2017-03-25)
PROC: B2181ZZ Fluoroscopy of Left Internal Mammary Bypass Graft using Low Osmolar Contrast (ICD-10-PCS; 2017-03-25)
PROC: B2151ZZ Fluoroscopy of Left Heart using Low Osmolar Contrast (ICD-10-PCS; 2017-03-25)
PROC: B2121ZZ Fluoroscopy of Single Coronary Artery Bypass Graft using Low Osmolar Contrast (ICD-10-PCS; 2017-03-25)
DX: I13.2 Hypertensive heart and chronic kidney disease with heart failure and with stage 5 chronic kidney disease, or end stage renal disease (principal); N18.6 End stage renal disease; E11.22 Type 2 diabetes mellitus with diabetic chronic kidney disease; C79.9 Secondary malignant neoplasm of unspecified site; I25.82 Chronic total occlusion of coronary artery; I95.3 Hypotension of hemodialysis; J43.9 Emphysema, unspecified; C61 Malignant neoplasm of prostate; I48.2 Chronic atrial fibrillation; I48.91 Unspecified atrial fibrillation; D63.1 Anemia in chronic kidney disease; I50.9 Heart failure, unspecified; Z99.2 Dependence on renal dialysis; Z79.4 Long term (current) use of insulin; I25.10 Atherosclerotic heart disease of native coronary artery without angina pectoris; R07.9 Chest pain, unspecified; Z95.1 Presence of aortocoronary bypass graft; R00.0 Tachycardia, unspecified; Z53.09 Procedure and treatment not carried out because of other contraindication; E78.00 Pure hypercholesterolemia, unspecified; J06.9 Acute upper respiratory infection, unspecified; Z87.891 Personal history of nicotine dependence; I25.5 Ischemic cardiomyopathy; Z95.0 Presence of cardiac pacemaker; E11.649 Type 2 diabetes mellitus with hypoglycemia without coma; E11.65 Type 2 diabetes mellitus with hyperglycemia

== ENCOUNTER 2017-05-03 18:13 | Emergency (ER) | payer OTHER, MEDICAID ==
[2017-05-03 18:14] VITALS: PULSE 138; BMI 25.8
[2017-05-03 18:22] VITALS: O2SAT 100
[2017-05-03 19:41] LABS: BASO # 0.1 K/uL (0.0-0.2); BASO % 0.6 % (0.0-2.0); EOS # 0.1 K/uL (0.0-0.7); EOS % 1.4 % (0.0-4.0); HEMATOCRIT 31.7 % (35.0-51.0); LYMPH # 0.9 K/uL (1.0-4.3); MEAN CORPUSCULAR HEMOGLOBIN 28.2 pg (27.0-31.0); MEAN CORPUSCULAR HGB CONC 32.4 g/dL (33.0-37.0); MEAN PLATELET VOLUME 9.3 fL (7.2-11.7); MONO # 0.9 K/uL (0.0-0.8); MONO % 10.6 % (0.0-10.0); RED CELL DISTRIBUTION WIDTH 20.9 % (11.5-14.5); WHITE BLOOD COUNT 8.2 K/uL (4.8-10.8)
[2017-05-03 19:49] LABS: INR 1.1
[2017-05-03 19:59] LABS: ALB/GLOB RATIO 1.1 (1.0-2.1); BILIRUBIN,TOTAL 0.8 mg/dL (0.2-1.3); POTASSIUM 4.2 mmol/L (3.6-5.2); TOTAL PROTEIN 6.6 g/dL (6.3-8.3)
[2017-05-03 20:01] LABS: TROPONIN I 0.031 ng/mL (0.00-0.120)
[2017-05-03] MEDS ORDERED: (Novolin R) Insulin Human Regular 100 units/ml vial IV STA (20:22)
[2017-05-03] MEDS ORDERED: (Novolin R) Insulin Human Regular 100 units/ml vial ONE (20:32)
--- NOTE | 2017-05-03 21:45 | C.PDOC ---
History Of Present Illness Pt was sent in to the ED due to tachycardia found by visiting nurse. Pt has h/o Afib and ESRD. He will be dialyzed tomorrow. Time Seen by Provider: 05/03/17 18:35 Chief Complaint (Nursing): Shortness Of Breath History Per: Patient, Family Onset/Duration Of Symptoms: Days (?) Current Symptoms Are (Timing): Still Present Current Respiratory Medications: See Home Med List Severity: Mild Additional History Per: Prior Records Past Medical History Reviewed: Historical Data, Nursing Documentation, Vital Signs Vital Signs: Last Vital Signs Temp 98 F 05/03/17 20:32 Pulse 84 05/03/17 21:04 Resp 21 05/03/17 21:04 BP 114/48 L 05/03/17 21:04 Pulse Ox 100 05/03/17 21:04 - Medical History PMH: Anemia, Asthma, Atrial Fibrillation, Cardia Arrhythmia, CHF, COPD, Diabetes , HTN, Hypercholesterolemia, Malignancy (Prostate), End Stage Renal Disease (on dialysis), Chronic Kidney Disease Surgical History: CABG (QUADRUPLE BYPASS in 2005 at [facility] - [facility] Procedures BYPASS LEFT BRACHIAL ARTERY TO UPPER ARM VEIN, OPEN APPROACH (06/09/15) FLUOROSCOPY OF L INT MAMM GRAFT USING L OSM CONTRAST (03/20/17) FLUOROSCOPY OF LEFT HEART USING LOW OSMOLAR CONTRAST (03/20/17) FLUOROSCOPY OF MULT COR ART USING L OSM CONTRAST (03/20/17) FLUOROSCOPY OF OTHER BYPASS GRAFT USING LOW OSMOLAR CONTRAST (03/20/17) FLUOROSCOPY OF SING COR A GRAFT USING L OSM CONTRAST (03/20/17) INSERTION OF INFUSION DEV INTO SUP VENA CAVA, PERC APPROACH (06/09/15) MEASURE OF CARDIAC SAMPL & PRESSURE, L HEART, PERC APPROACH (03/20/17) PERFORMANCE OF URINARY FILTRATION, MULTIPLE (01/23/16) PERFORMANCE OF URINARY FILTRATION, SINGLE (08/15/15) ULTRASONOGRAPHY OF HEART WITH AORTA, TRANSESOPHAGEAL (01/23/16) Family History: States: Unknown Family Hx - Social History Hx Tobacco Use: No Hx Alcohol Use: No Hx Substance Use: No - Immunization History Hx Tetanus Toxoid Vaccination: No Hx Influenza Vaccination: Yes (2015) Hx Pneumococcal Vaccination: No Review Of Systems Except As Marked, All Systems Reviewed And Found Negative. Constitutional: Negative for: Fever Cardiovascular: Negative for: Chest Pain Respiratory: Positive for: Shortness of Breath. Negative for: Hemoptysis Gastrointestinal: Negative for: Vomiting, Abdominal Pain, Diarrhea Musculoskeletal: Negative for: Neck Pain Skin: Negative for: Rash Neurological: Negative for: Weakness, Numbness, Seizures, Altered Mental Status Physical Exam - Physical Exam Appears: No Acute Distress, Chronically Ill Skin: Normal Color, Warm, Dry Head: Atraumatic, Normacephalic Eye(s): bilateral: PERRL, EOMI Neck: Normal ROM, Supple Cardiovascular: Rhythm Irregular Respiratory: Normal Breath Sounds, No Accessory Muscle Use Gastrointestinal/Abdominal: Soft, No Tenderness Back: No CVA Tenderness Extremity: Normal ROM, No Calf Tenderness Neurological/Psych: Oriented x3, Normal Motor, Normal Sensation ED Course And Treatment - Laboratory Results Result Diagrams: 05/03/17 19:32 05/03/17 19:32 Interpretation Of Abnormal: Hyperglycemia ECG: Interpreted By Me, Viewed By Me ECG Rhythm: Atrial Fibrillation Rate From EC O2 Sat by Pulse Oximetry: 100 Pulse Ox Interpretation: Normal - Radiology CXR: Interpreted by Me, Viewed By Me CXR Interpretation: Yes: Other (CHF) Progress Note: After Cardizem, HR normalized. After Insulin glucose much improved. Pt feels much better and wants to go home. Pt is asymptomatic now. Reassessment Condition: Improved Progress - Interventions Interventions:: Observation, Oxygen - Medications Administered Intravenous: Other (Cardizem, Insulin) - Data Reviewed Data Reviewed: Lab, Diagnostic imaging, EKG, Old records - Patient Status Patient status: Mostly improved - Critical Care Citical Care: Excluding Proc Time Critical Care Time: 30 minutes - Continuity of Care Discussed patient case with:: Patient, Family-HIPPA compliant, ED Nurse, PMD - Patient Plan Patient Plan: Discharge, F/U with PCP, Continue present meds Disposition Discussed With : Karissa Alvarez Doctor Will See Patient In The: Office Counseled Patient/Family Regarding: Studies Performed, Diagnosis, Need For Followup - Disposition Referrals: Karissa Alvarez MD [Medical Doctor] - Disposition: HOME/ ROUTINE Disposition Time: 21:47 Condition: IMPROVED Additional Instructions: Take you medications as prescribed. Follow up with your doctor and with dialysis. Return to the ER if you develop chest pain, dizziness, shortness of breath, worsening of symptoms or if you have any other concerns. Instructions: Atrial Fibrillation (ED) Forms: [employer] (Congolese) - Clinical Impression Clinical Impression: Uncontrolled diabetes mellitus with hyperglycemia, Atrial fibrillation with rapid ventricular response, ESRD on dialysis
[2017-05-03 22:07] VITALS: BP 117/52; PULSE 82; RESP 20; TEMP 97.8
--- NOTE | 2017-05-04 09:00 | RAD ---
PROCEDURE: CHEST RADIOGRAPH, 1 VIEW HISTORY: SOB COMPARISON: 03/30/2017 FINDINGS: LUNGS: The lungs are well inflated. No focal consolidation. PLEURA: No pneumothorax or pleural fluid seen. CARDIOVASCULAR: There is persistent moderate cardiomegaly. Status post CABG. OSSEOUS STRUCTURES: No significant abnormalities. VISUALIZED UPPER ABDOMEN: Normal. OTHER FINDINGS: None. IMPRESSION: No active pulmonary disease. No significant interval change.
--- NOTE | 2017-05-06 12:16 | CARD ---
APPROVED REPORT EKG Measurement Heart [id number] <Conclusion> Atrial fibrillation with rapid ventricular response Nonspecific T wave abnormality Abnormal ECG
== END 2017-05-03 22:07 | disposition home or self-care (01) ==
LOC: C.ER 18:13
DX: I48.91 Unspecified atrial fibrillation (principal); I12.0 Hypertensive chronic kidney disease with stage 5 chronic kidney disease or end stage renal disease; E11.22 Type 2 diabetes mellitus with diabetic chronic kidney disease; E11.65 Type 2 diabetes mellitus with hyperglycemia; N18.6 End stage renal disease; Z99.2 Dependence on renal dialysis; Z87.891 Personal history of nicotine dependence

== ENCOUNTER 2017-06-13 16:29 | Inpatient (IN) | payer MEDICARE, MEDICAID ==
[2017-06-13 16:29] VITALS: BMI 25.8
[2017-06-13] MEDS ORDERED: Dextrose 50% SYRINGE Inj (50 ml) IV STA ×2 (16:45→21:30)
[2017-06-13] MEDS ORDERED: Dextrose 50% VIAL Inj (50 ml) IV ONE (16:58)
[2017-06-13 17:13] LABS: BASO % 0.3 % (0.0-2.0); EOS # 0.1 K/uL (0.0-0.7); EOS % 0.7 % (0.0-4.0); HEMOGLOBIN 12.7 g/dL (12.0-18.0); LYMPH # 1.3 K/uL (1.0-4.3); MEAN CELL VOLUME 86.5 fL (80.0-94.0); MEAN CORPUSCULAR HEMOGLOBIN 28.6 pg (27.0-31.0); MEAN CORPUSCULAR HGB CONC 33.1 g/dL (33.0-37.0); MEAN PLATELET VOLUME 9.5 fL (7.2-11.7); MONO # 1.1 K/uL (0.0-0.8); MONO % 8.4 % (0.0-10.0); NEUT # 10.5 K/uL (1.8-7.0); NEUT % 80.6 % (50.0-75.0); NRBC % 0.1 % (0.0-2.0); RBC 4.45 Mil/uL (4.40-5.90); RED CELL DISTRIBUTION WIDTH 19.8 % (11.5-14.5); WHITE BLOOD COUNT 13.1 K/uL (4.8-10.8)
[2017-06-13 17:20] LABS: INR 1.4; PROTHROMBIN TIME 15.8 SECONDS (9.7-12.2)
--- NOTE | 2017-06-13 17:23 | C.PDOC ---
History Of Present Illness 76 y/o male presents to the ER complaining of chest pain which occurred in the morning today. Patient states that the pain occurred for 15 minutes. Patient states that he has SOB. Patient is taking Cardizem. Patient states that he had a lifepack placed by and the lifepack is beeping. He was told by his PCP to come to the ER if he had chest pain. Presently, the patient is not experiencing any chest pain. Of note, patient is on dialysis. Chief Complaint (Nursing): Chest Pain History Per: Patient History/Exam Limitations: no limitations Onset/Duration Of Symptoms: Hrs Current Symptoms Are (Timing): Still Present Severity: Moderate Past Medical History Reviewed: Historical Data, Nursing Documentation, Vital Signs Vital Signs: Last Vital Signs Temp Pulse 137 H 06/13/17 16:29 Resp 20 06/13/17 16:29 BP 102/58 L 06/13/17 16:29 Pulse Ox 100 06/13/17 18:05 - Medical History PMH: Anemia, Asthma, Atrial Fibrillation, Cardia Arrhythmia, CHF, COPD, Diabetes , HTN, Hypercholesterolemia, Malignancy (Prostate), End Stage Renal Disease (on dialysis), Chronic Kidney Disease Surgical History: CABG (QUADRUPLE BYPASS in 2005 at [facility] - [facility] Procedures BYPASS LEFT BRACHIAL ARTERY TO UPPER ARM VEIN, OPEN APPROACH (06/09/15) FLUOROSCOPY OF L INT MAMM GRAFT USING L OSM CONTRAST (03/20/17) FLUOROSCOPY OF LEFT HEART USING LOW OSMOLAR CONTRAST (03/20/17) FLUOROSCOPY OF MULT COR ART USING L OSM CONTRAST (03/20/17) FLUOROSCOPY OF OTHER BYPASS GRAFT USING LOW OSMOLAR CONTRAST (03/20/17) FLUOROSCOPY OF SING COR A GRAFT USING L OSM CONTRAST (03/20/17) INSERTION OF INFUSION DEV INTO SUP VENA CAVA, PERC APPROACH (06/09/15) MEASURE OF CARDIAC SAMPL & PRESSURE, L HEART, PERC APPROACH (03/20/17) PERFORMANCE OF URINARY FILTRATION, MULTIPLE (01/23/16) PERFORMANCE OF URINARY FILTRATION, SINGLE (08/15/15) ULTRASONOGRAPHY OF HEART WITH AORTA, TRANSESOPHAGEAL (01/23/16) Family History: States: No Known Family Hx - Social History Hx Tobacco Use: No Hx Alcohol Use: No Hx Substance Use: No - Immunization History Hx Tetanus Toxoid Vaccination: No Hx Influenza Vaccination: Yes (2015) Hx Pneumococcal Vaccination: No Review Of Systems Cardiovascular: Positive for: Chest Pain Respiratory: Positive for: Shortness of Breath Gastrointestinal: Negative for: Nausea Neurological: Negative for: Weakness, Numbness Physical Exam - Physical Exam Appears: Non-toxic, No Acute Distress Skin: Normal Color, Warm Head: Atraumatic, Normacephalic Eye(s): bilateral: Normal Inspection Nose: Normal Oral Mucosa: Moist Neck: Supple Chest: Symmetrical, Other (LifeVest on chest) Cardiovascular: Rhythm Irregular (irregularly irregular rhythm) Respiratory: Rales (rales at both bases) Gastrointestinal/Abdominal: Normal Exam, Soft, No Tenderness Neurological/Psych: Oriented x3, Normal Speech, Normal Motor, Normal Sensation Additional Physical Exam Comments: Has Recorder placed on body ED Course And Treatment - Laboratory Results Result Diagrams: 06/13/17 17:07 06/13/17 17:07 ECG: Interpreted By Me, Viewed By Me ECG Rhythm: Atrial Fibrillation Interpretation Of ECG: Afib with rapid ventricular response. ST/T depression in V4-V6, suggestive of ischemia. Rate From EC O2 Sat by Pulse Oximetry: 100 (RA) Pulse Ox Interpretation: Normal Medical Decision Making Medical Decision Making: Plan: --Labs --CXR Disposition - Disposition Forms: [employer] (Hungarian) - Scribe Statement The provider has reviewed the documentation as recorded by the Neetaibe Errol Dupree Provider Attestation: All medical record entries made by the Scribe were at my direction and personally dictated by me. I have reviewed the chart and agree that the record accurately reflects my personal performance of the history, physical exam, medical decision making, and the department course for this patient. I have also personally directed, reviewed, and agree with the discharge instructions and disposition.
[2017-06-13 17:36] LABS: ALBUMIN 3.6 g/dL (3.5-5.0); CALCIUM 8.8 mg/dl (8.6-10.4)
[2017-06-13 17:51] LABS: CK-MB 4.37 ng/mL (0.0-3.38)
[2017-06-13] MEDS ORDERED: diltiaZEM 120 mg/24 Hours CD Cap PO ONE (17:56)
--- NOTE | 2017-06-13 18:13 | RAD ---
PROCEDURE: CHEST RADIOGRAPH, 1 VIEW HISTORY: CHEST PAIN COMPARISON: 05/03/2017 FINDINGS: LUNGS: Clear. PLEURA: No pneumothorax or pleural fluid seen. CARDIOVASCULAR: No radiographic findings to suggest acute or significant cardiovascular disease. OSSEOUS STRUCTURES: No significant abnormalities. VISUALIZED UPPER ABDOMEN: Normal. OTHER FINDINGS: None. IMPRESSION: No active disease. No acute/significant interval changes.
[2017-06-13] MEDS ORDERED: Sodium Chloride 0.9% 250 ML IV ONE (18:16)
[2017-06-13 18:17] LABS: TROPONIN I 5.57 ng/mL (0.00-0.120)
--- NOTE | 2017-06-13 18:28 | CP.PCM.CON ---
<Jonathan Huber - Last Filed: 06/13/17 18:24> History of Present Illness - History of Present Illness History of Present Illness: CCU Consult Note HPI: patient is a 76M who was dialized today and then began to feel dizzy and have chest pain. The patient presented to the ED in rapid Afib with RVR. He sees Dr. Potts who fitted him with a lifevest. He denies any swelling or SOB. He did have positive trops on presentation. Senior Java Programmer was called. We gave 120 cardizem CD and a 500ml bolus. Patient HR came down to 100s and and pressure SBP 102. Patient was in no apparent distress. patient is hemodynamically stable. No need for ICU care at this time. Review of Systems - Review of Systems Review of Systems: per HPI Past Patient History - Past Medical History & Family History Past Medical History?: Yes - Past Social History Smoking Status: Former Smoker - CARDIAC Hx Atrial Fibrillation: Yes Hx Cardia Arrhythmia: Yes Hx Congestive Heart Failure: Yes Hx Hypercholesterolemia: Yes Hx Hypertension: Yes - PULMONARY Hx Asthma: Yes Hx Chronic Obstructive Pulmonary Disease (COPD): Yes - NEUROLOGICAL Hx Neurological Disorder: Yes Hx Dizziness: Yes - HEENT Hx HEENT Problems: Yes Hx Cataracts: Yes (both eyes) - RENAL Hx Chronic Kidney Disease: Yes - ENDOCRINE/METABOLIC Hx Diabetes Mellitus Type 1: Yes - HEMATOLOGICAL/ONCOLOGICAL Hx Anemia: Yes - INTEGUMENTARY Hx Dermatological Problems: No - MUSCULOSKELETAL/RHEUMATOLOGICAL Hx Musculoskeletal Disorders: Yes Hx Falls: Yes - GASTROINTESTINAL Hx Gastrointestinal Disorders: No - GENITOURINARY/GYNECOLOGICAL Hx Genitourinary Disorders: Yes Hx Hematuria: Yes Hx Prostate Cancer: Yes Hx Prostate Problems: Yes Other/Comment: Prostate Sx 10 years ago robotic surgey 2005 - PSYCHIATRIC Hx Substance Use: No - SURGICAL HISTORY Hx Coronary Artery Bypass Graft: Yes (QUADRUPLE BYPASS in 2006 at [facility] - ANESTHESIA Hx Anesthesia: Yes Hx Anesthesia Reactions: No Hx Malignant Hyperthermia: No Meds Allergies/Adverse Reactions: Allergies Allergy/AdvReac Type Severity Reaction Status Date / Time warfarin sodium Allergy Intermediate RASH Verified 06/13/17 16:44 [From Coumadin] - Medications Medications: Current Medications Sodium Chloride (Sodium Chloride 0.9%) 250 mls @ 250 mls/hr IV .Q1H ONE Stop: 06/13/17 19:15 Physical Exam - Constitutional Appears: Non-toxic, No Acute Distress - Head Exam Head Exam: ATRAUMATIC, NORMAL INSPECTION, NORMOCEPHALIC - Eye Exam Eye Exam: EOMI - ENT Exam ENT Exam: Mucous Membranes Moist - Respiratory Exam Respiratory Exam: Clear to Auscultation Bilateral, NORMAL BREATHING PATTERN - Cardiovascular Exam Cardiovascular Exam: REGULAR RHYTHM - GI/Abdominal Exam GI & Abdominal Exam: Normal Bowel Sounds, Soft. absent: Distended, Tenderness - Extremities Exam Extremities exam: Negative for: joint swelling, tenderness - Neurological Exam Neurological exam: Alert, Oriented x3 - Psychiatric Exam Psychiatric exam: Normal Affect, Normal Mood - Skin Skin Exam: Dry, Intact, Normal Color, Warm Results - Vital Signs Recent Vital Signs: Last Vital Signs Temp Pulse 137 H 06/13/17 16:29 Resp 20 06/13/17 16:29 BP 102/58 L 06/13/17 16:29 Pulse Ox 100 06/13/17 18:08 - Labs Result Diagrams: 06/13/17 17:07 06/13/17 17:07 Labs: Laboratory Results - last 24 hr 06/13/17 06/13/17 06/13/17 17:07 17:07 17:07 WBC 13.1 H D RBC 4.45 Hgb 12.7 D Hct 38.5 MCV 86.5 MCH 28.6 MCHC 33.1 RDW 19.8 H Plt Count 198 MPV 9.5 Neut % (Auto) 80.6 H Lymph % (Auto) 10.0 L [place] % (Auto) 8.4 Eos % (Auto) 0.7 Baso % (Auto) 0.3 Neut # (Auto) 10.5 H Lymph # (Auto) 1.3 [place] # (Auto) 1.1 H Eos # (Auto) 0.1 Baso # (Auto) 0.0 PT 15.8 H INR 1.4 APTT 37 H Sodium 137 Potassium 4.1 Chloride 92 L Carbon Dioxide 30 Anion Gap 19 BUN 24 H Creatinine 2.9 H Est GFR ( Amer) 26 Est GFR (Non-Af Amer) 21 POC Glucose (mg/dL) Random Glucose 39 L* D Calcium 8.8 Total Bilirubin 1.6 H AST 3239 H ALT 643 H D Alkaline Phosphatase 79 Total Creatine Kinase 91 CK-MB (Mass) 4.37 H Troponin I 5.5700 H* Total Protein 7.1 Albumin 3.6 Globulin 3.5 Albumin/Globulin Ratio 1.0 06/13/17 17:57 WBC RBC Hgb Hct MCV MCH MCHC RDW Plt Count MPV Neut % (Auto) Lymph % (Auto) [place] % (Auto) Eos % (Auto) Baso % (Auto) Neut # (Auto) Lymph # (Auto) [place] # (Auto) Eos # (Auto) Baso # (Auto) PT INR APTT Sodium Potassium Chloride Carbon Dioxide Anion Gap BUN Creatinine Est GFR ( Amer) Est GFR (Non-Af Amer) POC Glucose (mg/dL) 117 H Random Glucose Calcium Total Bilirubin AST ALT Alkaline Phosphatase Total Creatine Kinase CK-MB (Mass) Troponin I Total Protein Albumin Globulin Albumin/Globulin Ratio Assessment & Plan - Assessment and Plan (Free Text) Assessment: 76M rapid afib cardizem 120 given - controlled rate 500ml bolus hemodynamically stable follow trops no need for ICU care at this time <Mookie Callahan M - Last Filed: 06/20/17 08:10> Meds - Medications Medications: Current Medications Amoxicillin (Amoxil 250 Mg Cap) 250 mg PO Q12 COUNT INCLUDES THE [facility] Last Admin: 06/19/17 22:35 Dose: 250 mg Aspirin (Ecotrin) 81 mg PO DAILY COUNT INCLUDES THE [facility] Last Admin: 06/19/17 09:12 Dose: 81 mg Diltiazem HCl (Cardizem) 30 mg PO QID COUNT INCLUDES THE [facility] Last Admin: 06/19/17 22:35 Dose: 30 mg Guaifenesin/Dextromethorphan (Robitussin Dm) 5 ml PO Q4H PRN PRN Reason: Cough Last Admin: 06/17/17 17:41 Dose: 5 ml Heparin Sodium (Porcine) (Heparin) 5,000 units SC Q8 COUNT INCLUDES THE [facility] Last Admin: 06/19/17 13:44 Dose: 5,000 units Insulin Aspart (Novolog) 0 unit SC ACTID COUNT INCLUDES THE [facility] PRN Reason: Protocol Last Admin: 06/19/17 17:41 Dose: 2 unit Insulin Detemir (Levemir) 10 unit SC DAILY COUNT INCLUDES [facility] Last Admin: 06/19/17 13:43 Dose: 10 unit Metoprolol Succinate (Toprol Xl) 25 mg PO DAILY COUNT [facility]CLUD[facility] Last Admin: 06/19/17 09:12 Dose: 25 mg Pantoprazole Sodium (Protonix Ec Tab) 40 mg PO DAILY COUNT [facility]CLUD[facility] Last Admin: 06/19/17 09:12 Dose: 40 mg Rosuvastatin Calcium (Crestor) 5 mg PO HS [place] Last Admin: 06/19/17 22:35 Dose: 5 mg Results - Vital Signs Recent Vital Signs: Last Vital Signs Temp 97.9 F 06/20/17 05:55 Pulse 106 H 06/20/17 05:55 Resp 20 06/20/17 05:55 BP 102/58 L 06/20/17 05:55 Pulse Ox 98 06/20/17 05:55 - Labs Result Diagrams: 06/19/17 07:03 06/19/17 07:03 Labs: Laboratory Results - last 24 hr 06/19/17 06/19/17 06/19/17 12:09 16:46 21:29 POC Glucose (mg/dL) 377 H 184 H 115 H Assessment & Plan - Assessment and Plan (Free Text) Plan: patient seen and examined at bedside with above resident. Patient with SVT -tolerated oral and IV Av nodla susan -HR improved Please call ICU if patient's clinical status worsens. - Date & Time Date: 06/13/17 Time: 19:00
--- NOTE | 2017-06-13 21:01 | CP.PCM.HP ---
History of Present Illness - History of Present Illness History of Present Illness: 76 y.o. with PMH IDDM2 Hyertension ESRD on HD 3x a week CAD s/p CABG Atrial Fibrillation Chronic Debility Prostate Ca S/P surgery, with recurrent hematuria was on his usual HD today but patient repotrted left side chest pain, and felt weak, no diaphoresis, no LOC . patient has no SOB no diarhea, no fever but reporst coughing today he reports that he was not able to sleep last night due to repeated beeping noise from his life vest . no hematuria at this time Medications Cardizem Humalog 75/25/ statin ARBS Suregry CABG Prostate Surgery for cancer Fistula surgeryries and repair Previous Smoker non Etoh Lives with with [facility], and planned home services Present on Admission - Present on Admission Any Indicators Present on Admission: Yes History of DVT/PE: No History of Uncontrolled Diabetes: Yes Urinary Catheter: No Decubitus Ulcer Present: No Review of Systems - Constitutional Constitutional: Fatigue, Lethargy. absent: Chills, Headache, Night Sweats - EENT Eyes: absent: Pain, Other Visual Disturbances, Loss of Vision Nose/Mouth/Throat: absent: Epistaxis, Nasal Congestion, Sore Throat - Cardiovascular Cardiovascular: Chest Pain. absent: Diaphoresis, Dyspnea on Exertion, Leg Edema , Orthopnea - Respiratory Respiratory: Cough. absent: Wheezing, Excessive Mucous Production - Gastrointestinal Gastrointestinal: absent: Abdominal Pain, Diarrhea, Loose Stools, Vomiting - Genitourinary Genitourinary: absent: Dysuria, Flank Pain, Hematuria - Musculoskeletal Musculoskeletal: absent: Deformity, Joint Swelling - Integumentary Integumentary: absent: Rash, Sores - Neurological Neurological: absent: Abnormal Gait (but pedraza some joint DJD needed to have walker ,support on walking ), Abnormal Movements, Abnormal Speech, Behavioral Changes, Convulsions - Psychiatric Psychiatric: absent: Behavioral Changes, Confusion, Depression, Difficulty Concentrating - Endocrine Endocrine: Fatigue. absent: Palpitations, Polyuria Past Patient History - Past Medical History & Family History Past Medical History?: Yes - Past Social History Smoking Status: Former Smoker - CARDIAC Hx Atrial Fibrillation: Yes Hx Cardia Arrhythmia: Yes Hx Congestive Heart Failure: Yes Hx Hypercholesterolemia: Yes Hx Hypertension: Yes - PULMONARY Hx Asthma: Yes Hx Chronic Obstructive Pulmonary Disease (COPD): Yes - NEUROLOGICAL Hx Neurological Disorder: Yes Hx Dizziness: Yes - HEENT Hx HEENT Problems: Yes Hx Cataracts: Yes (both eyes) - RENAL Hx Chronic Kidney Disease: Yes - ENDOCRINE/METABOLIC Hx Diabetes Mellitus Type 1: Yes - HEMATOLOGICAL/ONCOLOGICAL Hx Anemia: Yes - INTEGUMENTARY Hx Dermatological Problems: No - MUSCULOSKELETAL/RHEUMATOLOGICAL Hx Musculoskeletal Disorders: Yes Hx Falls: Yes - GASTROINTESTINAL Hx Gastrointestinal Disorders: No - GENITOURINARY/GYNECOLOGICAL Hx Genitourinary Disorders: Yes Hx Hematuria: Yes Hx Prostate Cancer: Yes Hx Prostate Problems: Yes Other/Comment: Prostate Sx 10 years ago robotic surgey 2006 - PSYCHIATRIC Hx Substance Use: No - SURGICAL HISTORY Hx Coronary Artery Bypass Graft: Yes (QUADRUPLE BYPASS in 2006 at [facility].) - ANESTHESIA Hx Anesthesia: Yes Hx Anesthesia Reactions: No Hx Malignant Hyperthermia: No Meds Allergies/Adverse Reactions: Allergies Allergy/AdvReac Type Severity Reaction Status Date / Time warfarin sodium Allergy Intermediate RASH Verified 06/13/17 16:44 [From Coumadin] Physical Exam - Constitutional Appears: No Acute Distress - Head Exam Head Exam: ATRAUMATIC, NORMOCEPHALIC (with swollen face, periorbital) - Eye Exam Eye Exam: Normal appearance. absent: Nystagmus - ENT Exam ENT Exam: Mucous Membranes Dry - Neck Exam Neck exam: Positive for: Full Rom. Negative for: Meningismus, Tenderness - Respiratory Exam Respiratory Exam: Clear to Auscultation Bilateral, NORMAL BREATHING PATTERN - Cardiovascular Exam Cardiovascular Exam: Irregular Rhythm - GI/Abdominal Exam GI & Abdominal Exam: Normal Bowel Sounds, Soft. absent: Tenderness - Extremities Exam Extremities exam: Positive for: normal inspection, pedal pulses present. Negative for: joint swelling, pedal edema, tenderness - Back Exam Back exam: FULL ROM. absent: rash noted - Neurological Exam Neurological exam: Alert, Normal Gait (but feels weak), Oriented x3 - Psychiatric Exam Psychiatric exam: Normal Affect, Normal Mood - Skin Skin Exam: Intact, Normal Color Results - Vital Signs Recent Vital Signs: Last Vital Signs Temp Pulse 116 H 06/13/17 19:44 Resp 20 06/13/17 19:44 BP 95/56 L 06/13/17 19:44 Pulse Ox 95 06/13/17 19:44 - Labs Result Diagrams: 06/13/17 17:07 06/13/17 17:07 Labs: Laboratory Results - last 24 hr 06/13/17 06/13/1718 17:07 17:07 17:07 WBC 13.1 H D RBC 4.45 Hgb 12.7 D Hct 38.5 MCV 86.5 MCH 28.6 MCHC 33.1 RDW 19.8 H Plt Count 198 MPV 9.5 Neut % (Auto) 80.6 H Lymph % (Auto) 10.0 L [place] % (Auto) 8.4 Eos % (Auto) 0.7 Baso % (Auto) 0.3 Neut # (Auto) 10.5 H Lymph # (Auto) 1.3 [place] # (Auto) 1.1 H Eos # (Auto) 0.1 Baso # (Auto) 0.0 PT 15.8 H INR 1.4 APTT 37 H Sodium 137 Potassium 4.1 Chloride 92 L Carbon Dioxide 30 Anion Gap 19 BUN 24 H Creatinine 2.9 H Est GFR ( Amer) 26 Est GFR (Non-Af Amer) 21 POC Glucose (mg/dL) Random Glucose 39 L* D Lactic Acid Calcium 8.8 Total Bilirubin 1.6 H AST 3239 H ALT 643 H D Alkaline Phosphatase 79 Total Creatine Kinase 91 CK-MB (Mass) 4.37 H Troponin I 5.5700 H* Total Protein 7.1 Albumin 3.6 Globulin 3.5 Albumin/Globulin Ratio 1.0 Influenza Typ A,B (EIA) 06/13/17 06/13/17 06/13/17 17:57 18:33 18:43 WBC RBC Hgb Hct MCV MCH MCHC RDW Plt Count MPV Neut % (Auto) Lymph % (Auto) [place] % (Auto) Eos % (Auto) Baso % (Auto) Neut # (Auto) Lymph # (Auto) [place] # (Auto) Eos # (Auto) Baso # (Auto) PT INR APTT Sodium Potassium Chloride Carbon Dioxide Anion Gap BUN Creatinine Est GFR ( Amer) Est GFR (Non-Af Amer) POC Glucose (mg/dL) 117 H Random Glucose Lactic Acid 3.2 H Calcium Total Bilirubin AST ALT Alkaline Phosphatase Total Creatine Kinase CK-MB (Mass) Troponin I Total Protein Albumin Globulin Albumin/Globulin Ratio Influenza Typ A,B (EIA) Negative for flu a/b Assessment & Plan - Assessment and Plan (Free Text) Assessment: Patient with multiple medical problems and risk factors admitted due to Chest pain elevated Troponin, Rapid AFIB , on life vest that has been beeping -post cardizem in ER -cardio- consult, medication adjustment currently low BP- discussed with cardio history CHF - currently clear lungs and no edema ANY work ups, monitor for bleeding , can use Aspirin , issue of very high LFT's may not use Heparin Discussion with Dr Delroy ABBOTT- with noted low sugar today- will do FS and no coverage for now, hold Insulin,glucose supplementation as needed, further observation continue statin Hypertension- BP on the low side- post HD- Post IVF in the ER- hold BP meds further observation Cough and increased WBC, URI, mild,stable-will start PO antibiotic renal dose DEbility- for PT Weakness, mild dehydration- post Dialysis post IVF - further observation, feeding ESRD on HD History of CHF Abnormal LFTS as above, may not use Heparin due to liver problem, History of GIB Anemia on Iron, due to risk of worsening hemoglobin, will continue iron supplementation but at lower dose sen by CCU-to the floor , will admit to telemetry , another CCU eval accordingly after discussion and patient aware of guarded condition
[2017-06-13 22:12] LABS: CK-MB 3.38 ng/mL (0.0-3.38); TROPONIN I 4.32 ng/mL (0.00-0.120)
[2017-06-14 06:06] LABS: CK-MB 2.45 ng/mL (0.0-3.38); TROPONIN I 3.17 ng/mL (0.00-0.120)
[2017-06-14] MEDS ORDERED: Dextrose 50% SYRINGE Inj (50 ml) IV STA (06:42)
--- NOTE | 2017-06-14 09:35 | CP.PCM.CON ---
History of Present Illness - History of Present Illness History of Present Illness: HPI: 76 [place]uad[place] man who was dialyzed today and then began to feel dizzy and have chest pain. The patient presented to the ED in rapid Afib with RVR. He sees Dr. Potts who fitted him with a lifevest. He denies any swelling or SOB. He did have positive trops on presentation. Daycare Manager was called. We gave 120 cardizem CD and a 500ml bolus. Patient HR came down to 100s and and pressure SBP 102. Patient was in no apparent distress. patient is hemodynamically stable. Review of Systems - Cardiovascular Cardiovascular: Chest Pain, Dyspnea on Exertion, Irregular Heart Rhythm, Palpitations - Respiratory Respiratory: Dyspnea on Exertion Past Patient History - Past Medical History & Family History Past Medical History?: Yes - Past Social History Smoking Status: Former Smoker - CARDIAC Hx Atrial Fibrillation: Yes Hx Cardia Arrhythmia: Yes Hx Congestive Heart Failure: Yes Hx Hypercholesterolemia: Yes Hx Hypertension: Yes - PULMONARY Hx Asthma: Yes Hx Chronic Obstructive Pulmonary Disease (COPD): Yes - NEUROLOGICAL Hx Neurological Disorder: Yes Hx Dizziness: Yes - HEENT Hx HEENT Problems: Yes Hx Cataracts: Yes (both eyes) - RENAL Hx Dialysis: Yes Type of Dialysis Access: right upper arm shunt Date of Last Dialysis Treatment: 06/13/17 Hx Renal Failure: Yes - ENDOCRINE/METABOLIC Hx Diabetes Mellitus Type 1: Yes - HEMATOLOGICAL/ONCOLOGICAL Hx Anemia: Yes - INTEGUMENTARY Hx Dermatological Problems: No - MUSCULOSKELETAL/RHEUMATOLOGICAL Hx Falls: No - GASTROINTESTINAL Hx Gastrointestinal Disorders: No - GENITOURINARY/GYNECOLOGICAL Hx Genitourinary Disorders: Yes Hx Hematuria: Yes Hx Prostate Cancer: Yes Hx Prostate Problems: Yes Other/Comment: Prostate Sx 10 years ago robotic surgey 2005 - PSYCHIATRIC Hx Substance Use: No - SURGICAL HISTORY Hx Coronary Artery Bypass Graft: Yes (QUADRUPLE BYPASS in 2006 at [facility].) - ANESTHESIA Hx Anesthesia: Yes Hx Anesthesia Reactions: No Hx Malignant Hyperthermia: No Meds Allergies/Adverse Reactions: Allergies Allergy/AdvReac Type Severity Reaction Status Date / Time warfarin sodium Allergy Intermediate RASH Verified 06/13/17 16:44 [From Coumadin] - Medications Medications: Current Medications Amoxicillin (Amoxil 250 Mg Cap) 250 mg PO Q12 [facility] Last Admin: 06/13/17 23:59 Dose: 250 mg Aspirin (Ecotrin) 81 mg PO DAILY [facility] Diltiazem HCl (Cardizem) 30 mg PO QID [facility] Ferrous Gluconate (Fergon) 324 mg PO DAILY [facility] Metoprolol Succinate (Toprol Xl) 25 mg PO DAILY [facility] Pantoprazole Sodium (Protonix Ec Tab) 40 mg PO DAILY [facility] Rosuvastatin Calcium (Crestor) 5 mg PO HS [facility] Last Admin: 06/13/17 23:21 Dose: 5 mg Physical Exam - Cardiovascular Exam Cardiovascular Exam: Irregular Rhythm - GI/Abdominal Exam GI & Abdominal Exam: Soft. absent: Tenderness - Extremities Exam Extremities exam: Negative for: pedal edema Results - Vital Signs Recent Vital Signs: Last Vital Signs Temp 97.6 F 06/14/17 07:00 Pulse 86 06/14/17 07:00 Resp 20 06/14/17 07:00 BP 110/72 06/14/17 07:00 Pulse Ox 97 06/14/17 07:00 - Labs Result Diagrams: 06/13/17 17:07 06/13/17 17:07 Labs: Laboratory Results - last 24 hr 06/13/17 06/13/17 06/13/17 17:07 17:07 17:07 WBC 13.1 H D RBC 4.45 Hgb 12.7 D Hct 38.5 MCV 86.5 MCH 28.6 MCHC 33.1 RDW 19.8 H Plt Count 198 MPV 9.5 Neut % (Auto) 80.6 H Lymph % (Auto) 10.0 L [place] % (Auto) 8.4 Eos % (Auto) 0.7 Baso % (Auto) 0.3 Neut # (Auto) 10.5 H Lymph # (Auto) 1.3 [place] # (Auto) 1.1 H Eos # (Auto) 0.1 Baso # (Auto) 0.0 PT 15.8 H INR 1.4 APTT 37 H Sodium 137 Potassium 4.1 Chloride 92 L Carbon Dioxide 30 Anion Gap 19 BUN 24 H Creatinine 2.9 H Est GFR ( Amer) 26 Est GFR (Non-Af Amer) 21 POC Glucose (mg/dL) Random Glucose 39 L* D Lactic Acid Calcium 8.8 Total Bilirubin 1.6 H AST 3239 H ALT 643 H D Alkaline Phosphatase 79 Total Creatine Kinase 91 CK-MB (Mass) 4.37 H Troponin I 5.5700 H* Total Protein 7.1 Albumin 3.6 Globulin 3.5 Albumin/Globulin Ratio 1.0 Influenza Typ A,B (EIA) 06/13/17 06/13/17 06/13/17 17:57 18:33 18:43 WBC RBC Hgb Hct MCV MCH MCHC RDW Plt Count MPV Neut % (Auto) Lymph % (Auto) [place] % (Auto) Eos % (Auto) Baso % (Auto) Neut # (Auto) Lymph # (Auto) [place] # (Auto) Eos # (Auto) Baso # (Auto) PT INR APTT Sodium Potassium Chloride Carbon Dioxide Anion Gap BUN Creatinine Est GFR ( Amer) Est GFR (Non-Af Amer) POC Glucose (mg/dL) 117 H Random Glucose Lactic Acid 3.2 H Calcium Total Bilirubin AST ALT Alkaline Phosphatase Total Creatine Kinase CK-MB (Mass) Troponin I Total Protein Albumin Globulin Albumin/Globulin Ratio Influenza Typ A,B (EIA) Negative for flu a/b 06/13/17 06/13/17 06/13/17 21:19 21:20 21:41 WBC RBC Hgb Hct MCV MCH MCHC RDW Plt Count MPV Neut % (Auto) Lymph % (Auto) [place] % (Auto) Eos % (Auto) Baso % (Auto) Neut # (Auto) Lymph # (Auto) [place] # (Auto) Eos # (Auto) Baso # (Auto) PT INR APTT Sodium Potassium Chloride Carbon Dioxide Anion Gap BUN Creatinine Est GFR ( Amer) Est GFR (Non-Af Amer) POC Glucose (mg/dL) 40 L 37 L* Random Glucose Lactic Acid Calcium Total Bilirubin AST ALT Alkaline Phosphatase Total Creatine Kinase 61 CK-MB (Mass) 3.38 Troponin I 4.3200 H* Total Protein Albumin Globulin Albumin/Globulin Ratio Influenza Typ A,B (EIA) 06/13/17 06/14/17 06/14/17 23:35 01:21 05:23 WBC RBC Hgb Hct MCV MCH MCHC RDW Plt Count MPV Neut % (Auto) Lymph % (Auto) [place] % (Auto) Eos % (Auto) Baso % (Auto) Neut # (Auto) Lymph # (Auto) [place] # (Auto) Eos # (Auto) Baso # (Auto) PT INR APTT Sodium Potassium Chloride Carbon Dioxide Anion Gap BUN Creatinine Est GFR ( Amer) Est GFR (Non-Af Amer) POC Glucose (mg/dL) 95 123 H Random Glucose Lactic Acid Calcium Total Bilirubin AST ALT Alkaline Phosphatase Total Creatine Kinase 38 L CK-MB (Mass) 2.45 Troponin I 3.1700 H* Total Protein Albumin Globulin Albumin/Globulin Ratio Influenza Typ A,B (EIA) 06/14/17 06:38 WBC RBC Hgb Hct MCV MCH MCHC RDW Plt Count MPV Neut % (Auto) Lymph % (Auto) [place] % (Auto) Eos % (Auto) Baso % (Auto) Neut # (Auto) Lymph # (Auto) [place] # (Auto) Eos # (Auto) Baso # (Auto) PT INR APTT Sodium Potassium Chloride Carbon Dioxide Anion Gap BUN Creatinine Est GFR ( Amer) Est GFR (Non-Af Amer) POC Glucose (mg/dL) 58 L Random Glucose Lactic Acid Calcium Total Bilirubin AST ALT Alkaline Phosphatase Total Creatine Kinase CK-MB (Mass) Troponin I Total Protein Albumin Globulin Albumin/Globulin Ratio Influenza Typ A,B (EIA) Assessment & Plan - Assessment and Plan (Free Text) Assessment: ACS Afib w/ RVR ESRD on HD T2dm Ischemic cardiomyopathy Plan: Pt is on beta-susan. I will add Cardizem BP permitting. Consider adding digoxin if HR is not controlled with beta susan and Ca++susan and BP becomes an issue. Cont antioagulation - Date & Time Date: 06/14/17 Time: 09:41
[2017-06-14 09:57] LABS: ALBUMIN 3.3 g/dL (3.5-5.0); CALCIUM 8.7 mg/dl (8.6-10.4)
--- NOTE | 2017-06-14 10:04 | CP.PCM.CON ---
History of Present Illness - History of Present Illness History of Present Illness: CC: Abnormal liver enzymes HPI: GI consult requested for evaluation of elevated liver enzymes. Patient has an extensive cardiac history with ischemic Cardiomyopathy and EF 30% on recent catheterization, AFib, Renal Failure, Diabetes, Prostate cancer, and was admitted yesterday when he noted chest pain lasting 10 minutes, and was hypotensive and in rapid AFib. He denies nausea, orthopnea, jaundice, abdominal pain, fevers, diaphoresis. He did note BANEGAS, weakness, and occasional fresh blood on toilet paper when wiping. Hepatitis profile in March was normal. Baseline LFTs are essentially normal. A liver lesion was identified, prompting a liver biopsy, report is benign. Prostate cancer managed by Dr Ware with chemotherapy S/P Prostatectomy at [place]. Review of Systems - Constitutional Constitutional: As Per HPI, Fatigue, Weakness. absent: Chills, Weight Loss - EENT Eyes: absent: Change in Vision Ears: absent: Tinnitus Nose/Mouth/Throat: absent: Epistaxis - Cardiovascular Cardiovascular: Chest Pain, Dyspnea on Exertion, Irregular Heart Rhythm, Rapid Heart Rate. absent: Edema, Leg Edema, Orthopnea, Paroxysmal Nocturnal Dyspnea, Syncope - Respiratory Respiratory: Dyspnea on Exertion. absent: Cough, Dyspnea, Hemoptysis - Gastrointestinal Gastrointestinal: As Per HPI. absent: Abdominal Pain, Melena, Nausea - Genitourinary Genitourinary: absent: Difficulty Urinating - Musculoskeletal Musculoskeletal: absent: Back Pain - Integumentary Integumentary: absent: Rash - Neurological Neurological: absent: Abnormal Hearing, Syncope - Psychiatric Psychiatric: absent: Confusion, Depression - Endocrine Endocrine: Fatigue. absent: Change in Body Appearance - Hematologic/Lymphatic Hematologic: absent: Easy Bleeding Past Patient History - Past Medical History & Family History Past Medical History?: Yes - Past Social History Smoking Status: Former Smoker Alcohol: None - CARDIAC Hx Atrial Fibrillation: Yes Hx Cardia Arrhythmia: Yes Hx Congestive Heart Failure: Yes Hx Hypercholesterolemia: Yes Hx Hypertension: Yes - PULMONARY Hx Asthma: Yes Hx Chronic Obstructive Pulmonary Disease (COPD): Yes - NEUROLOGICAL Hx Neurological Disorder: Yes Hx Dizziness: Yes - HEENT Hx HEENT Problems: Yes Hx Cataracts: Yes (both eyes) - RENAL Hx Dialysis: Yes Type of Dialysis Access: right upper arm shunt Date of Last Dialysis Treatment: 06/13/17 Hx Renal Failure: Yes - ENDOCRINE/METABOLIC Hx Diabetes Mellitus Type 1: Yes - HEMATOLOGICAL/ONCOLOGICAL Hx Anemia: Yes - INTEGUMENTARY Hx Dermatological Problems: No - MUSCULOSKELETAL/RHEUMATOLOGICAL Hx Falls: No - GASTROINTESTINAL Hx Gastrointestinal Disorders: No - GENITOURINARY/GYNECOLOGICAL Hx Genitourinary Disorders: Yes Hx Hematuria: Yes Hx Prostate Cancer: Yes Hx Prostate Problems: Yes Other/Comment: Prostate Sx 10 years ago robotic surgey 2006 - PSYCHIATRIC Hx Substance Use: No - SURGICAL HISTORY Hx Coronary Artery Bypass Graft: Yes (QUADRUPLE BYPASS in 2006 at [facility] - ANESTHESIA Hx Anesthesia: Yes Hx Anesthesia Reactions: No Hx Malignant Hyperthermia: No Meds Allergies/Adverse Reactions: Allergies Allergy/AdvReac Type Severity Reaction Status Date / Time warfarin sodium Allergy Intermediate RASH Verified 06/13/17 16:44 [From Coumadin] - Medications Medications: Current Medications Amoxicillin (Amoxil 250 Mg Cap) 250 mg PO Q12 [facility] Last Admin: 06/13/17 23:59 Dose: 250 mg Aspirin (Ecotrin) 81 mg PO DAILY [facility] Diltiazem HCl (Cardizem) 30 mg PO QID [facility] Ferrous Gluconate (Fergon) 324 mg PO DAILY [facility] Metoprolol Succinate (Toprol Xl) 25 mg PO DAILY [facility] Pantoprazole Sodium (Protonix Ec Tab) 40 mg PO DAILY [facility] Rosuvastatin Calcium (Crestor) 5 mg PO HS [facility] Last Admin: 06/13/17 23:21 Dose: 5 mg Physical Exam - Constitutional Appears: No Acute Distress, Chronically Ill - Head Exam Head Exam: ATRAUMATIC, NORMAL INSPECTION, NORMOCEPHALIC - Eye Exam Eye Exam: Normal appearance. absent: Scleral icterus - ENT Exam ENT Exam: Mucous Membranes Moist, Normal Exam - Neck Exam Neck exam: Positive for: Normal Inspection - Respiratory Exam Respiratory Exam: Clear to Auscultation Bilateral - Cardiovascular Exam Cardiovascular Exam: REGULAR RHYTHM - GI/Abdominal Exam GI & Abdominal Exam: Normal Bowel Sounds, Soft. absent: Distended, Mass, Organomegaly, Rebound, Tenderness - Rectal Exam Rectal Exam: Deferred - Extremities Exam Extremities exam: Positive for: normal inspection. Negative for: pedal edema - Back Exam Back exam: NORMAL INSPECTION - Neurological Exam Neurological exam: Alert, Oriented x3 - Psychiatric Exam Psychiatric exam: Normal Affect, Normal Mood - Skin Skin Exam: Normal Color Results - Vital Signs Recent Vital Signs: Last Vital Signs Temp 97.6 F 06/14/17 07:00 Pulse 86 06/14/17 07:00 Resp 20 06/14/17 07:00 BP 110/72 06/14/17 07:00 Pulse Ox 97 06/14/17 07:00 - Labs Result Diagrams: 06/13/17 17:07 06/14/17 09:20 Labs: Laboratory Results - last 24 hr 06/13/17 06/13/17 06/13/17 17:07 17:07 17:07 WBC 13.1 H D RBC 4.45 Hgb 12.7 D Hct 38.5 MCV 86.5 MCH 28.6 MCHC 33.1 RDW 19.8 H Plt Count 198 MPV 9.5 Neut % (Auto) 80.6 H Lymph % (Auto) 10.[address] [place] % (Auto) 8.4 Eos % (Auto) 0.7 Baso % (Auto) 0.3 Neut # (Auto) 10.5 H Lymph # (Auto) 1.3 [place] # (Auto) 1.1 H Eos # (Auto) 0.1 Baso # (Auto) 0.0 PT 15.8 H INR 1.4 APTT 37 H Sodium 137 Potassium 4.1 Chloride 92 L Carbon Dioxide 30 Anion Gap 19 BUN 24 H Creatinine 2.9 H Est GFR ( Amer) 26 Est GFR (Non-Af Amer) 21 POC Glucose (mg/dL) Random Glucose 39 L* D Lactic Acid Calcium 8.8 Total Bilirubin 1.6 H AST 3239 H ALT 643 H D Alkaline Phosphatase 79 Total Creatine Kinase 91 CK-MB (Mass) 4.37 H Troponin I 5.5700 H* Total Protein 7.1 Albumin 3.6 Globulin 3.5 Albumin/Globulin Ratio 1.0 Influenza Typ A,B (EIA) 06/13/17 06/13/17 06/13/17 17:57 18:33 18:43 WBC RBC Hgb Hct MCV MCH MCHC RDW Plt Count MPV Neut % (Auto) Lymph % (Auto) [place] % (Auto) Eos % (Auto) Baso % (Auto) Neut # (Auto) Lymph # (Auto) [place] # (Auto) Eos # (Auto) Baso # (Auto) PT INR APTT Sodium Potassium Chloride Carbon Dioxide Anion Gap BUN Creatinine Est GFR ( Amer) Est GFR (Non-Af Amer) POC Glucose (mg/dL) 117 H Random Glucose Lactic Acid 3.2 H Calcium Total Bilirubin AST ALT Alkaline Phosphatase Total Creatine Kinase CK-MB (Mass) Troponin I Total Protein Albumin Globulin Albumin/Globulin Ratio Influenza Typ A,B (EIA) Negative for flu a/b 06/13/17 06/13/17 06/13/17 21:19 21:20 21:41 WBC RBC Hgb Hct MCV MCH MCHC RDW Plt Count MPV Neut % (Auto) Lymph % (Auto) [place] % (Auto) Eos % (Auto) Baso % (Auto) Neut # (Auto) Lymph # (Auto) [place] # (Auto) Eos # (Auto) Baso # (Auto) PT INR APTT Sodium Potassium Chloride Carbon Dioxide Anion Gap BUN Creatinine Est GFR ( Amer) Est GFR (Non-Af Amer) POC Glucose (mg/dL) 40 L 37 L* Random Glucose Lactic Acid Calcium Total Bilirubin AST ALT Alkaline Phosphatase Total Creatine Kinase 61 CK-MB (Mass) 3.38 Troponin I 4.3200 H* Total Protein Albumin Globulin Albumin/Globulin Ratio Influenza Typ A,B (EIA) 06/13/17 06/14/17 06/14/17 23:35 01:21 05:23 WBC RBC Hgb Hct MCV MCH MCHC RDW Plt Count MPV Neut % (Auto) Lymph % (Auto) [place] % (Auto) Eos % (Auto) Baso % (Auto) Neut # (Auto) Lymph # (Auto) [place] # (Auto) Eos # (Auto) Baso # (Auto) PT INR APTT Sodium Potassium Chloride Carbon Dioxide Anion Gap BUN Creatinine Est GFR ( Amer) Est GFR (Non-Af Amer) POC Glucose (mg/dL) 95 123 H Random Glucose Lactic Acid Calcium Total Bilirubin AST ALT Alkaline Phosphatase Total Creatine Kinase 38 L CK-MB (Mass) 2.45 Troponin I 3.1700 H* Total Protein Albumin Globulin Albumin/Globulin Ratio Influenza Typ A,B (EIA) 06/14/17 06/14/17 06:38 09:20 WBC RBC Hgb Hct MCV MCH MCHC RDW Plt Count MPV Neut % (Auto) Lymph % (Auto) [place] % (Auto) Eos % (Auto) Baso % (Auto) Neut # (Auto) Lymph # (Auto) [place] # (Auto) Eos # (Auto) Baso # (Auto) PT INR APTT Sodium 134 Potassium 4.5 Chloride 93 L Carbon Dioxide 26 Anion Gap 20 BUN 35 H Creatinine 4.0 H Est GFR ( Amer) 18 Est GFR (Non-Af Amer) 15 POC Glucose (mg/dL) 58 L Random Glucose 106 Lactic Acid Calcium 8.7 Total Bilirubin 1.8 H AST ALT 468 H D Alkaline Phosphatase 65 Total Creatine Kinase CK-MB (Mass) Troponin I Total Protein 6.6 Albumin 3.3 L Globulin 3.3 Albumin/Globulin Ratio 1.0 Influenza Typ A,B (EIA) Assessment & Plan (1) Abnormal liver enzymes Assessment and Plan: Elevated liver enzymes predominantly AST. This is a nonspecific enzyme which can be elevated in liver disease or cardiac muscle disease. Given this patient' s extensive cardiac history, and superimposed acute rapid AFib, hypotension, elevated Troponins, and CHF, The elevated transaminases are most likely due to cardiac causes such as Congestive hepatopathy, ischemic hepatopathy (shock liver ), or even an [place]. Unfortunately, elevated tropnins are not a reliable indicator of cardiac injury in the setting of chronic renal failure. Inasmuch as the liver is concerned, it is advisable to check for acute hepatitis, and an abdominal sonogram to image the liver and vascular structures to exclude liver disease. Discussed with Dr Ordaz. Status: Acute (2) Atrial fibrillation with RVR Assessment and Plan: Management per Cardiology Status: Acute Priority: High (3) CHF (congestive heart failure) Assessment and Plan: Managed by Cardiology Status: Acute (4) End stage renal disease Assessment and Plan: Chronic. Dialysis Status: Acute (5) Prostate CA Status: Acute (6) Liver mass Assessment and Plan: Noted on old CT. Biopsy benign. Followed by dr Ware. No acute intervention or workup is planned. Status: Acute - Date & Time Date: 06/14/17 Time: 18
[2017-06-14] MEDS: Metoprolol Succinate 25 mg XL Tab PO SCH (10:50)
[2017-06-14] MEDS: Pantoprazole 40 mg EC Tab PO SCH (10:51)
--- NOTE | 2017-06-14 16:56 | CP.PCM.PN ---
Subjective - Date & Time of Evaluation Date of Evaluation: 06/14/17 Time of Evaluation: 04:30 - Subjective Subjective: Patient seen- had abdominal ultrasound as part of Abnormal LFTs evaluation- patient had antibiotic for the cough and is happy that he noticed improvement in his cough Noted troponins level Cardio discussion patient is currently asymptomatic no chest pain no bleeding noted improvement in LFTs Objective - Vital Signs/Intake and Output Vital Signs (last 24 hours): Temp Pulse Resp BP Pulse Ox 97.2 F L 85 20 94/65 L 98 06/14/17 15:00 06/14/17 15:00 06/14/17 15:00 06/14/17 15:00 06/14/17 15:00 - Medications Medications: Current Medications Amoxicillin (Amoxil 250 Mg Cap) 250 mg PO Q12 [facility] Last Admin: 06/14/17 10:50 Dose: 250 mg Aspirin (Ecotrin) 81 mg PO DAILY [facility] Last Admin: 06/14/17 10:51 Dose: 81 mg Diltiazem HCl (Cardizem) 30 mg PO QID [facility] Last Admin: 06/14/17 15:27 Dose: 30 mg Ferrous Gluconate (Fergon) 324 mg PO DAILY [facility] Last Admin: 06/14/17 10:51 Dose: 324 mg Heparin Sodium (Porcine) (Heparin) 5,000 units SC Q8 [facility] Metoprolol Succinate (Toprol Xl) 25 mg PO DAILY [facility] Last Admin: 06/14/17 10:50 Dose: 25 mg Pantoprazole Sodium (Protonix Ec Tab) 40 mg PO DAILY [facility] Last Admin: 06/14/17 10:51 Dose: 40 mg Rosuvastatin Calcium (Crestor) 5 mg PO HS [facility] Last Admin: 06/13/17 23:21 Dose: 5 mg - Labs Labs: 06/13/17 17:07 06/14/17 09:20 PT 15.8 SECONDS (9.7-12.2) H 06/13/17 17:07 INR 1.4 06/13/17 17:07 APTT 37 SECONDS (21-34) H 06/13/17 17:07 - Constitutional Appears: No Acute Distress - Head Exam Head Exam: ATRAUMATIC, NORMOCEPHALIC - Eye Exam Eye Exam: Normal appearance. absent: Nystagmus - ENT Exam ENT Exam: Mucous Membranes Moist - Neck Exam Neck Exam: Full ROM - Respiratory Exam Respiratory Exam: Clear to Ausculation Bilateral, NORMAL BREATHING PATTERN - Cardiovascular Exam Cardiovascular Exam: Irregular Rhythm - GI/Abdominal Exam GI & Abdominal Exam: Soft, Normal Bowel Sounds. absent: Tenderness - Extremities Exam Extremities Exam: Full ROM. absent: Joint Swelling, Pedal Edema - Psychiatric Exam Psychiatric exam: Normal Affect, Normal Mood - Skin Skin Exam: Intact, Normal Color Assessment and Plan - Assessment and Plan (Free Text) Assessment: Patient with multiple medical problems admitted for chest pain, AFIB with elevated troponins, further cardio evaluation on ASpirin heparin, cardiem beta susan BP on the low side- on monitoring CAD history of CABG NIDDM2-with epoisode of hypoglycemia, DM meds were held- noted increasing sugar , will continue accucheck for now , resume Insulin as needed ESRD- onHD notified Renal for HD schedule Prostate ca, metastatic - Anemia of chronic condition stable no bleeding on iron continue telemetry, further cardiac evaluation
--- NOTE | 2017-06-14 17:28 | US ---
EXAM: US Duplex Arterial/Venous of the Abdomen, Complete EXAM DATE/TIME: 06/14/2017 10:21 AM CLINICAL HISTORY: 76 years old, male; Abnormal findings; Abnormal lab test; Other: Elevated liver enzymes TECHNIQUE: Real-time duplex ultrasound scan of the arterial and venous flow of the abdomen with color Doppler flow and spectral waveform analysis. COMPARISON: CT - ABD PELVIS W/O PO OR IV CONT 01/12/2017 11:08:19 AM FINDINGS: Portal veins: Patent portal vein with normal directional flow. Hepatic artery: Not imaged. Hepatic veins: Patent. Splenic vein: Not imaged. Liver: Four echogenic hepatic lesions. The 3 in the right lobe measure 2.8 x 2 by 2.7 cm, 1.8 x 1.7 x 2 cm and 2 x 2 x 1.8 cm. Lesion in left lobe measures 1.4 x 0.9 by 1.4 cm. Free fluid: None Other findings: Gallstones. No wall thickening or pericholecystic fluid. Common bile duct measures 5 mm. Right kidney measures 4.5 x 4.8 x 10 cm. Left kidney measures 4.1 x 4.3 x 8.5 cm. Moderate right hydronephrosis. 4 mm calculus in midpole of left kidney, no left hydronephrosis. Echogenic and thin renal cortex. IMPRESSION: 1. Hepatic lesions, not evident on recent noncontrast CT. Given findings below, concerning for metastases. Recommend additional evaluation with CT with IV contrast or MRI. 2. Redemonstration of moderate right hydronephrosis secondary to distal obstruction from asymmetric right greater than left bladder wall thickening on prior CT, concerning for infiltrative neoplasm. 3. Cholelithiasis.
[2017-06-15 09:01] LABS: HEMOGLOBIN 12.3 g/dL (12.0-18.0); MEAN CELL VOLUME 87.2 fL (80.0-94.0); MEAN CORPUSCULAR HEMOGLOBIN 29.2 pg (27.0-31.0); MEAN CORPUSCULAR HGB CONC 33.5 g/dL (33.0-37.0); MEAN PLATELET VOLUME 10.1 fL (7.2-11.7); RBC 4.2 Mil/uL (4.40-5.90); RED CELL DISTRIBUTION WIDTH 20.3 % (11.5-14.5); WHITE BLOOD COUNT 9.4 K/uL (4.8-10.8)
[2017-06-15 09:18] LABS: ALBUMIN 3.3 g/dL (3.5-5.0); BILIRUBIN,DIRECT 0.8 mg/dL (0.0-0.4); CALCIUM 8.4 mg/dl (8.6-10.4)
[2017-06-15 09:29] LABS: CK-MB 0.75 ng/mL (0.0-3.38); TROPONIN I 1.05 ng/mL (0.00-0.120)
[2017-06-15] MEDS: Metoprolol Succinate 25 mg XL Tab PO SCH (09:45)
[2017-06-15] MEDS: Pantoprazole 40 mg EC Tab PO SCH (09:45)
[2017-06-15] MEDS ORDERED: (Novolog Mix 70/30) Insulin Aspart/Insulin Aspar 100 units/ml SC SCH (12:15)
--- NOTE | 2017-06-15 12:38 | CP.PCM.PN ---
Subjective - Date & Time of Evaluation Date of Evaluation: 06/15/17 Time of Evaluation: 12:34 - Subjective Subjective: CC: abnormal liver enzymes Feels better. Denies dyspnea, chest pain, abdominal pain. LFTs continuously improving Sono- 4 lesions in liver. Suspicious for metastases Objective - Vital Signs/Intake and Output Vital Signs (last 24 hours): Temp Pulse Resp BP Pulse Ox 98.3 F 100 H 20 125/66 95 06/14/17 23:35 06/15/17 07:14 06/14/17 23:35 06/15/17 04:10 06/14/17 23:35 - Medications Medications: Current Medications Amoxicillin (Amoxil 250 Mg Cap) 250 mg PO Q12 [facility] Last Admin: 06/15/17 09:45 Dose: 250 mg Aspirin (Ecotrin) 81 mg PO DAILY [facility] Last Admin: 06/15/17 09:45 Dose: 81 mg Diltiazem HCl (Cardizem) 30 mg PO QID [facility] Last Admin: 06/15/17 09:45 Dose: 30 mg Ferrous Gluconate (Fergon) 324 mg PO DAILY [facility] Last Admin: 06/15/17 09:45 Dose: 324 mg Heparin Sodium (Porcine) (Heparin) 5,000 units SC Q8 [facility] Last Admin: 06/15/17 06:18 Dose: 5,000 units Insulin Aspart (Novolog Mix 70/30 (70/30 Units/Ml)) 30 units SC DAILY [facility] Metoprolol Succinate (Toprol Xl) 25 mg PO DAILY [facility] Last Admin: 06/15/17 09:45 Dose: 25 mg Pantoprazole Sodium (Protonix Ec Tab) 40 mg PO DAILY [facility] Last Admin: 06/15/17 09:45 Dose: 40 mg Rosuvastatin Calcium (Crestor) 5 mg PO HS [facility] Last Admin: 06/14/17 22:07 Dose: 5 mg - Labs Labs: 06/15/17 08:43 PT 15.8 SECONDS (9.7-12.2) H 06/13/17 17:07 INR 1.4 06/13/17 17:07 APTT 37 SECONDS (21-34) H 06/13/17 17:07 - Constitutional Appears: Well, No Acute Distress - Head Exam Head Exam: NORMOCEPHALIC - Eye Exam Eye Exam: absent: Scleral icterus - ENT Exam ENT Exam: Normal Exam - Neck Exam Neck Exam: Normal Inspection - Respiratory Exam Respiratory Exam: Clear to Ausculation Bilateral - Cardiovascular Exam Cardiovascular Exam: Irregular Rhythm - GI/Abdominal Exam GI & Abdominal Exam: Soft. absent: Tenderness, Organomegaly Assessment and Plan (1) Abnormal liver enzymes Assessment & Plan: Likely due to acute ischemic liver injury precipited by cardiac event. This is expected to gradually continue to improve with supportive care and treatment of underlying cardiac disease. Status: Acute (2) Atrial fibrillation with RVR Assessment & Plan: Managed by Cardiology Status: Acute (3) CHF (congestive heart failure) Assessment & Plan: Managed by Cardiology Status: Acute (4) End stage renal disease Status: Acute (5) Prostate CA Assessment & Plan: S/P Prostatectomy in [place], and undergoing chemotherapy Status: Acute (6) Liver mass Assessment & Plan: Increasing lesions on sonogram, suspicious for metastases Rec: Inasmuch as patient can not get contrast Ct (renal failure) nor MRI of liver (Defibrillator), I recommend Oncology evaluation, patient is known to Dr Ware. Consider PET scan. Will check cancer seromarkers as well Status: Acute
--- NOTE | 2017-06-15 14:33 | CP.PCM.CON ---
History of Present Illness - History of Present Illness History of Present Illness: 76 y.o. with PMH IDDM2 Hyertension ESRD on HD 3x a week; > 2 years CAD s/p CABG ICMP Atrial Fibrillation Chronic Debility Prostate Ca S/P surgery, with recurrent hematuria was on his usual HD 2/2 but patient had left side chest pain, and felt weak, no diaphoresis, no LOC . patient has no SOB no diarrhea, no fever but had increased coughing he reports that he was not able to sleep last night due to repeated beeping noise from his life vest . no hematuria at this time Medications Cardizem Humalog 75/25/ statin ARBS Suregry CABG Prostate Surgery for cancer Fistula surgeries and repair Previous Smoker non Etoh Lives with with HVN, and planned home services Review of Systems - Review of Systems All systems: reviewed and no additional remarkable complaints except - Constitutional Constitutional: Lethargy, Weight Loss, Weakness - EENT Eyes: absent: As Per HPI, Blind Spots, Blurred Vision, Change in Vision, Decreased Night Vision, Diplopia, Discharge, Dry Eye, Exophthalmos, Floaters, Irritation, Itchy Eyes, Loss of Peripheral Vision, Pain, Photophobia, Requires Corrective Lenses, Sees Flashes, Spots in Vision, Tunnel Vision, Other Visual Disturbances, Loss of Vision, Other Ears: absent: As Per HPI, Decreased Hearing, Ear Discharge, Ear Pain, Tinnitus, Abnormal Hearing, Disequilibrium, Dizziness, Other Nose/Mouth/Throat: absent: As Per HPI, Epistaxis, Nasal Congestion, Nasal Discharge, Nasal Obstruction, Nasal Trauma, Nose Pain, Post Nasal Drip, Sinus Pain, Sinus Pressure, Bleeding Gums, Change in Voice, Dental Pain, Dry Mouth, Dysphagia, Halitosis, Hoarsness, Lip Swelling, Mouth Lesions, Mouth Pain, Odynophagia, Sore Throat, Throat Swelling, Tongue Swelling, Facial Pain, Neck Pain, Neck Mass, Other - Cardiovascular Cardiovascular: Dyspnea on Exertion, Orthopnea, Rapid Heart Rate - Respiratory Respiratory: Cough - Gastrointestinal Gastrointestinal: Early Satiety, Nausea - Genitourinary Genitourinary: As Per HPI - Musculoskeletal Musculoskeletal: Muscle Weakness, Myalgias - Neurological Neurological: Weakness Past Patient History - Past Medical History & Family History Past Medical History?: Yes Past Family History: Reviewed and not pertinent - Past Social History Smoking Status: Former Smoker Chewing Tobacco Use: No Cigar Use: No Alcohol: None Drugs: Denies Home Situation {Lives}: With Family - CARDIAC Hx Cardiac Disorders: (CAD, CABGx4 2006,) Hx Congestive Heart Failure: Yes Hx Hypercholesterolemia: Yes Hx Hypertension: Yes - PULMONARY Hx Chronic Obstructive Pulmonary Disease (COPD): Yes - NEUROLOGICAL Hx Neurological Disorder: Yes Hx Dizziness: Yes - HEENT Hx HEENT Problems: Yes Hx Cataracts: Yes (both eyes) - RENAL Hx Renal Failure: Yes (CKD, ESRD) - ENDOCRINE/METABOLIC Hx Diabetes Mellitus Type 1: Yes - HEMATOLOGICAL/ONCOLOGICAL Hx Anemia: Yes - INTEGUMENTARY Hx Dermatological Problems: No - MUSCULOSKELETAL/RHEUMATOLOGICAL Hx Falls: No - GASTROINTESTINAL Hx Gastrointestinal Disorders: No - GENITOURINARY/GYNECOLOGICAL Hx Genitourinary Disorders: Yes Hx Hematuria: Yes Hx Prostate Cancer: Yes Hx Prostate Problems: Yes Other/Comment: Prostate Sx 10 years ago robotic surgey 2006 - PSYCHIATRIC Hx Substance Use: No - SURGICAL HISTORY Hx Coronary Artery Bypass Graft: Yes (QUADRUPLE BYPASS in 2005 at [facility].) - ANESTHESIA Hx Anesthesia: Yes Hx Anesthesia Reactions: No Hx Malignant Hyperthermia: No Meds Allergies/Adverse Reactions: Allergies Allergy/AdvReac Type Severity Reaction Status Date / Time warfarin sodium Allergy Intermediate RASH Verified 06/13/17 16:44 [From Coumadin] - Medications Medications: Current Medications Amoxicillin (Amoxil 250 Mg Cap) 250 mg PO Q12 [facility] Last Admin: 06/15/17 09:45 Dose: 250 mg Aspirin (Ecotrin) 81 mg PO DAILY [facility] Last Admin: 06/15/17 09:45 Dose: 81 mg Diltiazem HCl (Cardizem) 30 mg PO QID [facility] Last Admin: 06/15/17 13:25 Dose: 30 mg Ferrous Gluconate (Fergon) 324 mg PO DAILY [facility] Last Admin: 06/15/17 09:45 Dose: 324 mg Heparin Sodium (Porcine) (Heparin) 5,000 units SC Q8 [facility] Last Admin: 06/15/17 13:25 Dose: 5,000 units Insulin Aspart (Novolog Mix 70/30 (70/30 Units/Ml)) 30 units SC DAILY [facility] Last Admin: 06/15/17 12:41 Dose: 30 units Metoprolol Succinate (Toprol Xl) 25 mg PO DAILY [facility] Last Admin: 06/15/17 09:45 Dose: 25 mg Pantoprazole Sodium (Protonix Ec Tab) 40 mg PO DAILY [facility] Last Admin: 06/15/17 09:45 Dose: 40 mg Rosuvastatin Calcium (Crestor) 5 mg PO HS [facility] Last Admin: 06/14/17 22:07 Dose: 5 mg Physical Exam - Constitutional Appears: No Acute Distress, Chronically Ill - Head Exam Head Exam: ATRAUMATIC, NORMAL INSPECTION - Eye Exam Eye Exam: EOMI, Normal appearance - Neck Exam Neck exam: Positive for: Normal Inspection. Negative for: Tenderness - Respiratory Exam Respiratory Exam: Clear to Auscultation Bilateral, NORMAL BREATHING PATTERN - Cardiovascular Exam Cardiovascular Exam: Irregular Rhythm, +S1 - GI/Abdominal Exam GI & Abdominal Exam: Soft. absent: Tenderness - Extremities Exam Extremities exam: Positive for: normal inspection. Negative for: tenderness - Neurological Exam Neurological exam: Alert, CN II-XII Intact - Skin Skin Exam: Dry, Warm Results - Vital Signs Recent Vital Signs: Last Vital Signs Temp 98.3 F 06/14/17 23:35 Pulse 100 H 06/15/17 07:14 Resp 20 06/14/17 23:35 BP 125/66 06/15/17 04:10 Pulse Ox 95 06/14/17 23:35 - Labs Result Diagrams: 06/15/17 08:43 06/15/17 08:43 Labs: Laboratory Results - last 24 hr 06/14/17 06/15/17 06/15/17 21:20 02:07 06:36 WBC RBC Hgb Hct MCV MCH MCHC RDW Plt Count MPV Sodium Potassium Chloride Carbon Dioxide Anion Gap BUN Creatinine Est GFR ( Amer) Est GFR (Non-Af Amer) POC Glucose (mg/dL) 262 H 375 H 314 H Random Glucose Calcium Total Bilirubin Direct Bilirubin AST ALT Alkaline Phosphatase Total Creatine Kinase CK-MB (Mass) Troponin I Total Protein Albumin Globulin Albumin/Globulin Ratio 06/15/17 06/15/17 06/15/17 08:43 08:43 08:43 WBC 9.4 RBC 4.20 L Hgb 12.3 Hct 36.7 MCV 87.2 MCH 29.2 MCHC 33.5 RDW 20.3 H Plt Count 204 MPV 10.1 Sodium 131 L Potassium 4.3 Chloride 91 L Carbon Dioxide 19 L Anion Gap 25 H BUN 51 H Creatinine 5.5 H Est GFR ( Amer) 12 Est GFR (Non-Af Amer) 10 POC Glucose (mg/dL) Random Glucose 301 H Calcium 8.4 L Total Bilirubin 1.3 Direct Bilirubin 0.8 H AST 225 H D ALT 322 H D Alkaline Phosphatase 83 Total Creatine Kinase 25 L CK-MB (Mass) 0.75 Troponin I 1.0500 H* Total Protein 6.6 Albumin 3.3 L Globulin 3.3 Albumin/Globulin Ratio 1.0 06/15/17 12:00 WBC RBC Hgb Hct MCV MCH MCHC RDW Plt Count MPV Sodium Potassium Chloride Carbon Dioxide Anion Gap BUN Creatinine Est GFR ( Amer) Est GFR (Non-Af Amer) POC Glucose (mg/dL) 246 H Random Glucose Calcium Total Bilirubin Direct Bilirubin AST ALT Alkaline Phosphatase Total Creatine Kinase CK-MB (Mass) Troponin I Total Protein Albumin Globulin Albumin/Globulin Ratio Assessment & Plan (1) CKD (chronic kidney disease) stage 5, GFR less than 15 ml/min Status: Acute (2) Paroxysmal atrial fibrillation with rapid ventricular response Status: Acute - Assessment and Plan (Free Text) Plan: Tele HR control as per cardio Dialysis MWF
--- NOTE | 2017-06-15 18:36 | CP.PCM.PN ---
Subjective - Date & Time of Evaluation Date of Evaluation: 06/15/17 Time of Evaluation: 05:00 - Subjective Subjective: Patient seen was seen by Gastro earlier and said was already aware of liver findings patient wants to kno other treatment options, will call oncologist currently, cough has lessened and is happy with the antibiotic feeding is good his sugar went up- and insulin was resumed at lower dose, 30 he used to inject 100 units- , after which had hypoglycemic episode again- will hold insulin and will cover Fs accordingly for now Objective - Vital Signs/Intake and Output Vital Signs (last 24 hours): Temp Pulse Resp BP Pulse Ox 98.3 F 83 22 98/51 L 98 06/15/17 16:00 06/15/17 16:00 06/15/17 16:00 06/15/17 16:00 06/15/17 16:00 - Medications Medications: Current Medications Amoxicillin (Amoxil 250 Mg Cap) 250 mg PO Q12 [facility] Last Admin: 06/15/17 09:45 Dose: 250 mg Aspirin (Ecotrin) 81 mg PO DAILY [facility] Last Admin: 06/15/17 09:45 Dose: 81 mg Diltiazem HCl (Cardizem) 30 mg PO QID [facility] Last Admin: 06/15/17 18:00 Dose: 30 mg Ferrous Gluconate (Fergon) 324 mg PO DAILY [facility] Last Admin: 06/15/17 09:45 Dose: 324 mg Heparin Sodium (Porcine) (Heparin) 5,000 units SC Q8 [facility] Last Admin: 06/15/17 13:25 Dose: 5,000 units Insulin Aspart (Novolog Mix 70/30 (70/30 Units/Ml)) 30 units SC DAILY [facility] Last Admin: 06/15/17 12:41 Dose: 30 units Metoprolol Succinate (Toprol Xl) 25 mg PO DAILY [facility] Last Admin: 06/15/17 09:45 Dose: 25 mg Pantoprazole Sodium (Protonix Ec Tab) 40 mg PO DAILY [facility] Last Admin: 06/15/17 09:45 Dose: 40 mg Rosuvastatin Calcium (Crestor) 5 mg PO HS [facility] Last Admin: 06/14/17 22:07 Dose: 5 mg - Labs Labs: 06/15/17 08:43 06/15/17 08:43 PT 15.8 SECONDS (9.7-12.2) H 06/13/17 17:07 INR 1.4 02/02/18 17:07 APTT 37 SECONDS (21-34) H 06/13/17 17:07 - Constitutional Appears: Non-toxic (but looks weak, is conversant and is aware of condition) - Head Exam Head Exam: ATRAUMATIC, NORMOCEPHALIC - Eye Exam Eye Exam: Normal appearance - ENT Exam ENT Exam: Mucous Membranes Dry - Neck Exam Neck Exam: Full ROM - Cardiovascular Exam Cardiovascular Exam: Irregular Rhythm - GI/Abdominal Exam GI & Abdominal Exam: Soft, Normal Bowel Sounds. absent: Tenderness, Mass - Extremities Exam Extremities Exam: absent: Pedal Edema - Back Exam Back Exam: Full ROM. absent: rash noted - Neurological Exam Neurological Exam: Alert, Awake, Normal Gait, Oriented x3 - Psychiatric Exam Psychiatric exam: Normal Affect, Normal Mood - Skin Skin Exam: Intact, Normal Color Assessment and Plan - Assessment and Plan (Free Text) Assessment: Patient with paroxysmal Atrial Fib- with elevated Troponins- currently found to have metastatic Prostate ca to the liver that explained the elevated LFTs wants to know treatment options-will call oncologist ESRD- on scheduled HD IDDM2 insulin again is on hold to due repeated hypoglycemia- will continue to monitor and just cover accordingly , patient has good food intake Low BP- but is currently stable- further monitoring guarded to poor prognosis patient aware of condition
--- NOTE | 2017-06-15 22:52 | CP.PCM.PN ---
Subjective - Date & Time of Evaluation Date of Evaluation: 06/15/17 Time of Evaluation: 10:15 - Subjective Subjective: feeling much better tele- Afib w/ MVR no sob Trops + renal v cardiac Objective - Vital Signs/Intake and Output Vital Signs (last 24 hours): Temp Pulse Resp BP Pulse Ox 98.3 F 83 22 98/51 L 98 06/15/17 16:00 06/15/17 16:00 06/15/17 16:00 06/15/17 16:00 06/15/17 16:00 - Medications Medications: Current Medications Amoxicillin (Amoxil 250 Mg Cap) 250 mg PO Q12 [facility] Last Admin: 06/15/17 22:00 Dose: 250 mg Aspirin (Ecotrin) 81 mg PO DAILY [facility] Last Admin: 06/15/17 09:45 Dose: 81 mg Diltiazem HCl (Cardizem) 30 mg PO QID [facility] Last Admin: 06/15/17 22:00 Dose: 30 mg Ferrous Gluconate (Fergon) 324 mg PO DAILY [facility] Last Admin: 06/15/17 09:45 Dose: 324 mg Heparin Sodium (Porcine) (Heparin) 5,000 units SC Q8 [facility] Last Admin: 06/15/17 22:00 Dose: 5,000 units Metoprolol Succinate (Toprol Xl) 25 mg PO DAILY [facility] Last Admin: 06/15/17 09:45 Dose: 25 mg Pantoprazole Sodium (Protonix Ec Tab) 40 mg PO DAILY [facility] Last Admin: 06/15/17 09:45 Dose: 40 mg Rosuvastatin Calcium (Crestor) 5 mg PO HS [facility] Last Admin: 06/15/17 22:00 Dose: 5 mg - Labs Labs: 06/15/17 08:43 06/15/17 08:43 PT 15.8 SECONDS (9.7-12.2) H 06/13/17 17:07 INR 1.4 06/13/17 17:07 APTT 37 SECONDS (21-34) H 06/13/17 17:07 - Constitutional Appears: Non-toxic - Head Exam Head Exam: NORMAL INSPECTION - Eye Exam Eye Exam: absent: Scleral icterus - ENT Exam ENT Exam: Mucous Membranes Dry - Neck Exam Neck Exam: Full ROM - Respiratory Exam Respiratory Exam: Decreased Breath Sounds, Clear to Ausculation Bilateral - Cardiovascular Exam Cardiovascular Exam: Irregular Rhythm - GI/Abdominal Exam GI & Abdominal Exam: Soft. absent: Tenderness - Neurological Exam Neurological Exam: Alert, Oriented x3 Assessment and Plan - Assessment and Plan (Free Text) Assessment: ACS CHF Afib ESRD Ischemic cardiomyopathy Plan: Cont anticoagulation, ARBS, beta susan, Ca++ susan Dialysis
[2017-06-16 08:21] LABS: ALBUMIN 2.9 g/dL (3.5-5.0); BILIRUBIN,DIRECT 1.1 mg/dL (0.0-0.4)
[2017-06-16] MEDS: Pantoprazole 40 mg EC Tab PO SCH (09:19)
[2017-06-16] MEDS: Metoprolol Succinate 25 mg XL Tab PO SCH (09:20)
[2017-06-16 10:12] LABS: HEPATITIS B SURFACE AG Negative (NEGATIVE)
[2017-06-16 10:18] LABS: HEPATITIS A IGM NEGATIVE (NEGATIVE); HEPATITIS B CORE AB NEGATIVE (NEGATIVE)
[2017-06-16 10:30] LABS: HEPATITIS C ANTIBODY NEGATIVE (NEGATIVE)
--- NOTE | 2017-06-16 13:18 | CP.PCM.PN ---
Subjective - Date & Time of Evaluation Date of Evaluation: 06/16/17 Time of Evaluation: 13:16 - Subjective Subjective: Feels much better no dyspnea, n, v, CPs or palpitations rhythm now AF with controlled VR for dialysis today Objective - Vital Signs/Intake and Output Vital Signs (last 24 hours): Temp Pulse Resp BP Pulse Ox 97.8 F 104 H 20 103/66 98 06/16/17 07:20 06/16/17 08:00 06/16/17 07:20 06/16/17 07:20 06/16/17 07:20 - Medications Medications: Current Medications Amoxicillin (Amoxil 250 Mg Cap) 250 mg PO Q12 [facility] Last Admin: 06/16/17 09:19 Dose: 250 mg Aspirin (Ecotrin) 81 mg PO DAILY [facility] Last Admin: 06/16/17 09:19 Dose: 81 mg Diltiazem HCl (Cardizem) 30 mg PO QID [facility] Last Admin: 06/16/17 09:19 Dose: 30 mg Ferrous Gluconate (Fergon) 324 mg PO DAILY [facility] Last Admin: 06/16/17 09:19 Dose: 324 mg Heparin Sodium (Porcine) (Heparin) 5,000 units SC Q8 [facility] Last Admin: 06/16/17 05:59 Dose: 5,000 units Metoprolol Succinate (Toprol Xl) 25 mg PO DAILY [facility] Last Admin: 06/16/17 09:20 Dose: Not Given Pantoprazole Sodium (Protonix Ec Tab) 40 mg PO DAILY [facility] Last Admin: 06/16/17 09:19 Dose: 40 mg Rosuvastatin Calcium (Crestor) 5 mg PO HS [facility] Last Admin: 06/15/17 22:00 Dose: 5 mg - Labs Labs: 06/15/17 08:43 06/15/17 08:43 PT 15.8 SECONDS (9.7-12.2) H 06/13/17 17:07 INR 1.4 06/13/17 17:07 APTT 37 SECONDS (21-34) H 06/13/17 17:07 - Constitutional Appears: No Acute Distress, Chronically Ill - Head Exam Head Exam: ATRAUMATIC, NORMAL INSPECTION - Eye Exam Eye Exam: EOMI, Normal appearance - Neck Exam Neck Exam: Normal Inspection. absent: Tenderness - Respiratory Exam Respiratory Exam: Clear to Ausculation Bilateral, NORMAL BREATHING PATTERN - Cardiovascular Exam Cardiovascular Exam: Irregular Rhythm, +S1 - GI/Abdominal Exam GI & Abdominal Exam: Soft, Tenderness - Extremities Exam Extremities Exam: Normal Inspection. absent: Tenderness - Neurological Exam Neurological Exam: Alert, CN II-XII Intact - Skin Skin Exam: Dry, Warm Assessment and Plan (1) CKD (chronic kidney disease) stage 5, GFR less than 15 ml/min Status: Acute (2) Paroxysmal atrial fibrillation with rapid ventricular response Status: Acute - Assessment and Plan (Free Text) Plan: cardiac meds dialysis now and MWF
--- NOTE | 2017-06-16 14:54 | CP.PCM.PN ---
Subjective - Date & Time of Evaluation Date of Evaluation: 06/16/17 Time of Evaluation: 14:51 - Subjective Subjective: CC: follow up LFTs Liver lesions on sono suspicious for metastases. Known Prostate primary CA. CEA very elevated. States last Colonoscopy was 2011 (Dr Felix). Denies change in bowel habits. Saw blood in stool 2 weeks ago, isolated episode. Chest pain resolved LFTs gradually improving-likely ischemic hepatopathy Objective - Vital Signs/Intake and Output Vital Signs (last 24 hours): Temp Pulse Resp BP Pulse Ox 97.8 F 104 H 20 103/66 98 06/16/17 07:20 06/16/17 08:00 06/16/17 07:20 06/16/17 07:20 06/16/17 07:20 - Medications Medications: Current Medications Amoxicillin (Amoxil 250 Mg Cap) 250 mg PO Q12 [facility] Last Admin: 06/16/17 09:19 Dose: 250 mg Aspirin (Ecotrin) 81 mg PO DAILY [facility] Last Admin: 06/16/17 09:19 Dose: 81 mg Diltiazem HCl (Cardizem) 30 mg PO QID [facility] Last Admin: 06/16/17 14:26 Dose: Not Given Ferrous Gluconate (Fergon) 324 mg PO DAILY [facility] Last Admin: 06/16/17 09:19 Dose: 324 mg Heparin Sodium (Porcine) (Heparin) 5,000 units SC Q8 [facility] Last Admin: 06/16/17 14:26 Dose: Not Given Metoprolol Succinate (Toprol Xl) 25 mg PO DAILY [facility] Last Admin: 06/16/17 09:20 Dose: Not Given Pantoprazole Sodium (Protonix Ec Tab) 40 mg PO DAILY [facility] Last Admin: 06/16/17 09:19 Dose: 40 mg Rosuvastatin Calcium (Crestor) 5 mg PO HS [facility] Last Admin: 06/15/17 22:00 Dose: 5 mg - Labs Labs: 06/15/17 08:43 06/15/17 08:43 PT 15.8 SECONDS (9.7-12.2) H 06/13/17 17:07 INR 1.4 06/13/17 17:07 APTT 37 SECONDS (21-34) H 06/13/17 17:07 - Constitutional Appears: No Acute Distress - Head Exam Head Exam: NORMOCEPHALIC - Eye Exam Eye Exam: absent: Scleral icterus - ENT Exam ENT Exam: Normal Exam - Neck Exam Neck Exam: Normal Inspection - Respiratory Exam Respiratory Exam: NORMAL BREATHING PATTERN - Cardiovascular Exam Cardiovascular Exam: REGULAR RHYTHM - GI/Abdominal Exam GI & Abdominal Exam: Soft. absent: Tenderness, Mass, Organomegaly Assessment and Plan (1) Abnormal liver enzymes Assessment & Plan: Steadily improving. Suspect ischemic hepatopathy when patient developed rapid AFib. Patient also has ischemic cardiomyopathy. Followed by Cardiology Status: Acute (2) Atrial fibrillation with RVR Status: Acute (3) CHF (congestive heart failure) Status: Acute (4) End stage renal disease Assessment & Plan: On dialysis Status: Acute (5) Prostate CA Status: Acute (6) Liver mass Assessment & Plan: Suspect metastases. ? Primary source Recommend Colonoscopy if cleared by Cardiology, and await Oncology consult. Can not get MRI or contrast CT due to defibrillator and renal failure respectively Status: Acute
--- NOTE | 2017-06-16 16:09 | CP.PCM.PN ---
Subjective - Date & Time of Evaluation Date of Evaluation: 06/16/17 Time of Evaluation: 02:45 - Subjective Subjective: Patient seen, ongoing dialysis patient seen by Gastro- plan of possible colonoscopy awaiting oncology for treatment option agreed to subacute when ready cough getting better no fever Objective - Vital Signs/Intake and Output Vital Signs (last 24 hours): Temp Pulse Resp BP Pulse Ox 97.5 F L 77 18 106/59 L 98 06/16/17 15:47 06/16/17 15:47 06/16/17 15:47 06/16/17 15:47 06/16/17 13:40 - Medications Medications: Current Medications Amoxicillin (Amoxil 250 Mg Cap) 250 mg PO Q12 [facility] Last Admin: 06/16/17 09:19 Dose: 250 mg Aspirin (Ecotrin) 81 mg PO DAILY [facility] Last Admin: 06/16/17 09:19 Dose: 81 mg Diltiazem HCl (Cardizem) 30 mg PO QID [facility] Last Admin: 06/16/17 14:26 Dose: Not Given Ferrous Gluconate (Fergon) 324 mg PO DAILY [facility] Last Admin: 06/16/17 09:19 Dose: 324 mg Heparin Sodium (Porcine) (Heparin) 5,000 units SC Q8 [facility] Last Admin: 06/16/17 14:26 Dose: Not Given Metoprolol Succinate (Toprol Xl) 25 mg PO DAILY [facility] Last Admin: 06/16/17 09:20 Dose: Not Given Pantoprazole Sodium (Protonix Ec Tab) 40 mg PO DAILY [facility] Last Admin: 06/16/17 09:19 Dose: 40 mg Rosuvastatin Calcium (Crestor) 5 mg PO HS [facility] Last Admin: 06/15/17 22:00 Dose: 5 mg - Labs Labs: 06/15/17 08:43 06/15/17 08:43 PT 15.8 SECONDS (9.7-12.2) H 06/13/17 17:07 INR 1.4 06/13/17 17:07 APTT 37 SECONDS (21-34) H 06/13/17 17:07 - Constitutional Appears: Non-toxic (but looks weak, able to converse, awake ), No Acute Distress - Head Exam Head Exam: ATRAUMATIC, NORMOCEPHALIC - Eye Exam Eye Exam: Normal appearance - ENT Exam ENT Exam: Mucous Membranes Dry - Neck Exam Neck Exam: Full ROM. absent: Tenderness - Respiratory Exam Respiratory Exam: Clear to Ausculation Bilateral, NORMAL BREATHING PATTERN - Cardiovascular Exam Cardiovascular Exam: REGULAR RHYTHM - GI/Abdominal Exam GI & Abdominal Exam: Soft, Normal Bowel Sounds. absent: Tenderness - Extremities Exam Extremities Exam: Full ROM, Normal Inspection. absent: Pedal Edema - Back Exam Back Exam: absent: rash noted - Neurological Exam Neurological Exam: Alert, Awake, Normal Gait, Oriented x3 - Psychiatric Exam Psychiatric exam: Normal Affect, Normal Mood - Skin Skin Exam: Intact, Normal Color Assessment and Plan - Assessment and Plan (Free Text) Assessment: patient with metastatic ca- awaiting oncology input ESRD on scheduled HD A fib- discussion with cardiology- not a good candiate for cath full anticoagulation IDDM 2 insulin on hold - FS tomonitor Debility- for subacute when ready poor prognosis patient aware of condition
--- NOTE | 2017-06-16 16:48 | CP.PCM.PN ---
<Christian Walton - Last Filed: 06/16/17 16:45> Subjective - Date & Time of Evaluation Date of Evaluation: 06/16/17 Time of Evaluation: 16:45 - Subjective Subjective: PGY-[address] Potts. No acute events noted overnight. Patient denied chest pain or palpitations. Patient only compliant was a cough which he states is getting better. Objective - Vital Signs/Intake and Output Vital Signs (last 24 hours): Temp Pulse Resp BP Pulse Ox 97.5 F L 77 18 106/89 98 06/16/17 15:47 06/16/17 15:57 06/16/17 15:57 06/16/17 15:57 06/16/17 13:40 - Medications Medications: Current Medications Amoxicillin (Amoxil 250 Mg Cap) 250 mg PO Q12 [facility] Last Admin: 06/16/17 09:19 Dose: 250 mg Aspirin (Ecotrin) 81 mg PO DAILY [facility] Last Admin: 06/16/17 09:19 Dose: 81 mg Diltiazem HCl (Cardizem) 30 mg PO QID [facility] Last Admin: 06/16/17 14:26 Dose: Not Given Ferrous Gluconate (Fergon) 324 mg PO DAILY [facility] Last Admin: 06/16/17 09:19 Dose: 324 mg Heparin Sodium (Porcine) (Heparin) 5,000 units SC Q8 [facility] Last Admin: 06/16/17 14:26 Dose: Not Given Metoprolol Succinate (Toprol Xl) 25 mg PO DAILY [facility] Last Admin: 06/16/17 09:20 Dose: Not Given Pantoprazole Sodium (Protonix Ec Tab) 40 mg PO DAILY [facility] Last Admin: 06/16/17 09:19 Dose: 40 mg Rosuvastatin Calcium (Crestor) 5 mg PO HS [facility] Last Admin: 06/15/17 22:00 Dose: 5 mg - Labs Labs: 06/15/17 08:43 06/15/17 08:43 PT 15.8 SECONDS (9.7-12.2) H 06/13/17 17:07 INR 1.4 06/13/17 17:07 APTT 37 SECONDS (21-34) H 06/13/17 17:07 - Additional Findings Additional findings: - Constitutional Appears: Non-toxic (but looks weak, able to converse, awake ), No Acute Distress - Head Exam Head Exam: ATRAUMATIC, NORMOCEPHALIC - Eye Exam Eye Exam: Normal appearance - ENT Exam ENT Exam: Mucous Membranes Dry - Neck Exam Neck Exam: Full ROM. absent: Tenderness - Respiratory Exam Respiratory Exam: Clear to Ausculation Bilateral, NORMAL BREATHING PATTERN - Cardiovascular Exam Cardiovascular Exam: REGULAR RHYTHM - GI/Abdominal Exam GI & Abdominal Exam: Soft, Normal Bowel Sounds. absent: Tenderness - Extremities Exam Extremities Exam: Full ROM, Normal Inspection. absent: Pedal Edema - Back Exam Back Exam: absent: rash noted - Neurological Exam Neurological Exam: Alert, Awake, Normal Gait, Oriented x3 - Psychiatric Exam Psychiatric exam: Normal Affect, Normal Mood - Skin Skin Exam: Intact, Normal Color Assessment and Plan (1) Atrial fibrillation with RVR Status: Acute (2) CHF (congestive heart failure) Assessment & Plan: Ischemic Cardiomyopathy CABG 03/2017 - EF of 30% Status: Acute (3) HTN (hypertension) Assessment & Plan: BP well controlled Con't diltiazem 30mg PO QID Con't metorprolol succinate 25mg PO QD Status: Chronic (4) Liver mass Assessment & Plan: Hx of prostate CA Metasteses suspected GI recommends colonoscopy Colonoscopy is a low-risk procedure thus patient is clear from cardiac standpoint. Status: Acute <Jonathan Potts - Last Filed: 06/16/17 19:56> Objective - Vital Signs/Intake and Output Vital Signs (last 24 hours): Temp Pulse Resp BP Pulse Ox 97.5 F L 92 H 16 104/60 98 06/16/17 17:10 06/16/17 17:10 06/16/17 17:10 06/16/17 17:10 06/16/17 17:10 - Medications Medications: Current Medications Amoxicillin (Amoxil 250 Mg Cap) 250 mg PO Q12 [facility] Last Admin: 06/16/17 09:19 Dose: 250 mg Aspirin (Ecotrin) 81 mg PO DAILY [facility] Last Admin: 06/16/17 09:19 Dose: 81 mg Diltiazem HCl (Cardizem) 30 mg PO QID [facility] Last Admin: 06/16/17 18:37 Dose: 30 mg Ferrous Gluconate (Fergon) 324 mg PO DAILY [facility] Last Admin: 06/16/17 09:19 Dose: 324 mg Guaifenesin/Dextromethorphan (Robitussin Dm) 5 ml PO Q4H PRN PRN Reason: Cough Last Admin: 06/16/17 18:37 Dose: 5 ml Heparin Sodium (Porcine) (Heparin) 5,000 units SC Q8 [facility] Last Admin: 06/16/17 14:26 Dose: Not Given Metoprolol Succinate (Toprol Xl) 25 mg PO DAILY [facility] Last Admin: 06/16/17 09:20 Dose: Not Given Pantoprazole Sodium (Protonix Ec Tab) 40 mg PO DAILY [facility] Last Admin: 06/16/17 09:19 Dose: 40 mg Rosuvastatin Calcium (Crestor) 5 mg PO HS [facility] Last Admin: 06/15/17 22:00 Dose: 5 mg - Labs Labs: 06/15/17 08:43 06/15/17 08:43 PT 15.8 SECONDS (9.7-12.2) H 06/13/17 17:07 INR 1.4 06/13/17 17:07 APTT 37 SECONDS (21-34) H 06/13/17 17:07 Assessment and Plan - Assessment and Plan (Free Text) Assessment: Patient personally seen and evaluated by me Plan of care discussed during teaching rounds Conservative medical management Repeat ECHO to assess LV EF
--- NOTE | 2017-06-16 18:20 | CP.PCM.CON ---
History of Present Illness - History of Present Illness History of Present Illness: 76 yo man with a diagnosis of metastatic prostate cancer, ESRD on HD c/o dizziness, admitted to the hospital when he was found to have A.fib and RVR. Also has a history of CAD with CABG. The patient was diagnosed with prostate cancer in 2005 underwent RARLP and was on hormonal therapy until recently, when work up of hematuria revealed metastatic disease to the bladder and a rising PSA. CAT/PET scan also showed liver mets (though biopsy did not reveal cancer) and rectosigmoid thickening. He was referred to GI for work up ,possibly for second primary(also because of an increased CEA level), unable to have colonoscopy yet. Past Patient History - Past Medical History & Family History Past Medical History?: Yes Past Family History: Reviewed and not pertinent - Past Social History Smoking Status: Former Smoker Chewing Tobacco Use: No Cigar Use: No Alcohol: None Drugs: Denies Home Situation {Lives}: With Family - CARDIAC Hx Cardiac Disorders: (CAD, CABGx4 2005,) Hx Congestive Heart Failure: Yes Hx Hypercholesterolemia: Yes Hx Hypertension: Yes - PULMONARY Hx Chronic Obstructive Pulmonary Disease (COPD): Yes - NEUROLOGICAL Hx Neurological Disorder: Yes Hx Dizziness: Yes - HEENT Hx HEENT Problems: Yes Hx Cataracts: Yes (both eyes) - RENAL Hx Renal Failure: Yes (CKD, ESRD) - ENDOCRINE/METABOLIC Hx Diabetes Mellitus Type 1: Yes - HEMATOLOGICAL/ONCOLOGICAL Hx Anemia: Yes - INTEGUMENTARY Hx Dermatological Problems: No - MUSCULOSKELETAL/RHEUMATOLOGICAL Hx Falls: No - GASTROINTESTINAL Hx Gastrointestinal Disorders: No - GENITOURINARY/GYNECOLOGICAL Hx Genitourinary Disorders: Yes Hx Hematuria: Yes Hx Prostate Cancer: Yes Hx Prostate Problems: Yes Other/Comment: Prostate Sx 10 years ago robotic surgey 2005 - PSYCHIATRIC Hx Substance Use: No - SURGICAL HISTORY Hx Coronary Artery Bypass Graft: Yes (QUADRUPLE BYPASS in 2005 at [facility].) - ANESTHESIA Hx Anesthesia: Yes Hx Anesthesia Reactions: No Hx Malignant Hyperthermia: No Meds Allergies/Adverse Reactions: Allergies Allergy/AdvReac Type Severity Reaction Status Date / Time warfarin sodium Allergy Intermediate RASH Verified 06/13/17 16:44 [From Coumadin] - Medications Medications: Current Medications Amoxicillin (Amoxil 250 Mg Cap) 250 mg PO Q12 [facility] Last Admin: 06/16/17 09:19 Dose: 250 mg Aspirin (Ecotrin) 81 mg PO DAILY [facility] Last Admin: 06/16/17 09:19 Dose: 81 mg Diltiazem HCl (Cardizem) 30 mg PO QID [facility] Last Admin: 06/16/17 14:26 Dose: Not Given Ferrous Gluconate (Fergon) 324 mg PO DAILY [facility] Last Admin: 06/16/17 09:19 Dose: 324 mg Guaifenesin/Dextromethorphan (Robitussin Dm) 5 ml PO Q4H PRN PRN Reason: Cough Heparin Sodium (Porcine) (Heparin) 5,000 units SC Q8 [facility] Last Admin: 06/16/17 14:26 Dose: Not Given Metoprolol Succinate (Toprol Xl) 25 mg PO DAILY [facility] Last Admin: 06/16/17 09:20 Dose: Not Given Pantoprazole Sodium (Protonix Ec Tab) 40 mg PO DAILY [facility] Last Admin: 06/16/17 09:19 Dose: 40 mg Rosuvastatin Calcium (Crestor) 5 mg PO HS [facility] Last Admin: 06/15/17 22:00 Dose: 5 mg Results - Vital Signs Recent Vital Signs: Last Vital Signs Temp 97.5 F L 06/16/17 17:10 Pulse 92 H 06/16/17 17:10 Resp 16 06/16/17 17:10 BP 104/60 06/16/17 17:10 Pulse Ox 98 06/16/17 17:10 - Labs Result Diagrams: 06/15/17 08:43 06/15/17 08:43 Labs: Laboratory Results - last 24 hr 06/15/17 06/15/17 06/16/17 08:43 21:22 02:14 POC Glucose (mg/dL) 110 86 Total Bilirubin Direct Bilirubin AST ALT Alkaline Phosphatase Total Protein Albumin Globulin Albumin/Globulin Ratio Alpha Fetoprotein Carcinoembryonic Ag CA 19-9 Antigen Hepatitis A IgM Ab Negative Hep Bs Antigen Negative Hep B Core IgM Ab Negative Hepatitis C Antibody Negative 06/16/17 06/16/17 06/16/17 06:33 06:56 06:56 POC Glucose (mg/dL) 103 Total Bilirubin 1.3 Direct Bilirubin 1.1 H AST 91 H D ALT 217 H D Alkaline Phosphatase 80 Total Protein 6.0 L Albumin 2.9 L Globulin 3.1 Albumin/Globulin Ratio 1.0 Alpha Fetoprotein 1.9 Carcinoembryonic Ag 116.0 H CA 19-9 Antigen 41.5 H Hepatitis A IgM Ab Hep Bs Antigen Hep B Core IgM Ab Hepatitis C Antibody 06/16/17 06/16/17 11:50 16:05 POC Glucose (mg/dL) 129 H 99 Total Bilirubin Direct Bilirubin AST ALT Alkaline Phosphatase Total Protein Albumin Globulin Albumin/Globulin Ratio Alpha Fetoprotein Carcinoembryonic Ag CA 19-9 Antigen Hepatitis A IgM Ab Hep Bs Antigen Hep B Core IgM Ab Hepatitis C Antibody
[2017-06-16] MEDS: guaiFENesin DM 100 mg-10 mg/5 ml UD PO PRN (18:37)
--- NOTE | 2017-06-17 08:27 | CP.PCM.PN ---
Subjective - Date & Time of Evaluation Date of Evaluation: 06/17/17 Time of Evaluation: 08:24 - Subjective Subjective: F/U elevated CEA Denies CP, SZ, melena, abd pain, fever, chills, hematuria, hemoptysis Objective - Vital Signs/Intake and Output Vital Signs (last 24 hours): Temp Pulse Resp BP Pulse Ox 97.6 F 82 20 95/56 L 98 06/16/17 23:40 06/16/17 23:40 06/16/17 23:40 06/16/17 23:40 06/16/17 23:40 - Medications Medications: Current Medications Amoxicillin (Amoxil 250 Mg Cap) 250 mg PO Q12 [facility] Last Admin: 06/16/17 21:13 Dose: 250 mg Aspirin (Ecotrin) 81 mg PO DAILY [facility] Last Admin: 06/16/17 09:19 Dose: 81 mg Diltiazem HCl (Cardizem) 30 mg PO QID [facility] Last Admin: 06/16/17 21:13 Dose: 30 mg Ferrous Gluconate (Fergon) 324 mg PO DAILY [facility] Last Admin: 06/16/17 09:19 Dose: 324 mg Guaifenesin/Dextromethorphan (Robitussin Dm) 5 ml PO Q4H PRN PRN Reason: Cough Last Admin: 06/16/17 18:37 Dose: 5 ml Heparin Sodium (Porcine) (Heparin) 5,000 units SC Q8 [facility] Last Admin: 06/17/17 06:59 Dose: 5,000 units Metoprolol Succinate (Toprol Xl) 25 mg PO DAILY [facility] Last Admin: 06/16/17 09:20 Dose: Not Given Pantoprazole Sodium (Protonix Ec Tab) 40 mg PO DAILY [facility] Last Admin: 06/16/17 09:19 Dose: 40 mg Rosuvastatin Calcium (Crestor) 5 mg PO HS [facility] Last Admin: 06/16/17 21:13 Dose: 5 mg - Labs Labs: 06/15/17 08:43 06/15/17 08:43 PT 15.8 SECONDS (9.7-12.2) H 06/13/17 17:07 INR 1.4 06/13/17 17:07 APTT 37 SECONDS (21-34) H 06/13/17 17:07 - Constitutional Appears: Well - Respiratory Exam Respiratory Exam: Clear to Ausculation Bilateral - Cardiovascular Exam Cardiovascular Exam: RRR - GI/Abdominal Exam GI & Abdominal Exam: Soft, Normal Bowel Sounds. absent: Tenderness - Extremities Exam Extremities Exam: absent: Calf Tenderness - Neurological Exam Neurological Exam: Alert, Oriented x3 Assessment and Plan (1) Abnormal liver enzymes Status: Acute (2) Liver mass Status: Acute (3) Acute diastolic heart failure Status: Acute (4) Atrial fibrillation Status: Acute (5) CHF (congestive heart failure) Status: Acute (6) Prostate CA Status: Acute (7) Rectal bleeding Assessment & Plan: Elev CEA level. Cleared by cardology for colonosocpy Colonsoocpy friday Status: Acute
[2017-06-17] MEDS: guaiFENesin DM 100 mg-10 mg/5 ml UD PO PRN ×2 (09:37→17:41)
[2017-06-17] MEDS: Metoprolol Succinate 25 mg XL Tab PO SCH (09:37)
[2017-06-17] MEDS: Pantoprazole 40 mg EC Tab PO SCH (09:37)
--- NOTE | 2017-06-17 11:03 | CP.PCM.PN ---
Subjective - Date & Time of Evaluation Date of Evaluation: 06/17/17 Time of Evaluation: 11:01 - Subjective Subjective: pt seen and examined notes reviewed pt c/o sob. no cp dizziness abd pain nasuea vomiting diarrhea rash plan for colonoscopy tentatively tomorrow Objective - Vital Signs/Intake and Output Vital Signs (last 24 hours): Temp Pulse Resp BP Pulse Ox 99.0 F 120 H 20 129/70 94 L 06/17/17 07:10 06/17/17 07:10 06/17/17 07:10 06/17/17 07:10 06/17/17 07:10 - Medications Medications: Current Medications Amoxicillin (Amoxil 250 Mg Cap) 250 mg PO Q12 [facility] Last Admin: 06/17/17 09:36 Dose: 250 mg Aspirin (Ecotrin) 81 mg PO DAILY [facility] Last Admin: 06/17/17 09:36 Dose: 81 mg Diltiazem HCl (Cardizem) 30 mg PO QID [facility] Last Admin: 06/17/17 09:41 Dose: 30 mg Ferrous Gluconate (Fergon) 324 mg PO DAILY [facility] Last Admin: 06/17/17 09:37 Dose: 324 mg Guaifenesin/Dextromethorphan (Robitussin Dm) 5 ml PO Q4H PRN PRN Reason: Cough Last Admin: 06/17/17 09:37 Dose: 5 ml Heparin Sodium (Porcine) (Heparin) 5,000 units SC Q8 [facility] Last Admin: 06/17/17 06:59 Dose: 5,000 units Metoprolol Succinate (Toprol Xl) 25 mg PO DAILY [facility] Last Admin: 06/17/17 09:37 Dose: 25 mg Pantoprazole Sodium (Protonix Ec Tab) 40 mg PO DAILY [facility] Last Admin: 06/17/17 09:37 Dose: 40 mg Polyethylene Glycol/Electrolytes (Golytely) 4,000 ml PO ONCE ONE Stop: 06/17/17 18:01 Rosuvastatin Calcium (Crestor) 5 mg PO HS [facility] Last Admin: 06/16/17 21:13 Dose: 5 mg - Labs Labs: 06/15/17 08:43 06/15/17 08:43 PT 15.8 SECONDS (9.7-12.2) H 06/13/17 17:07 INR 1.4 06/13/17 17:07 APTT 37 SECONDS (21-34) H 06/13/17 17:07 - Constitutional Appears: Non-toxic, No Acute Distress, Cachectic, Chronically Ill - Head Exam Head Exam: NORMAL INSPECTION - Eye Exam Eye Exam: Normal appearance, PERRL Pupil Exam: NORMAL ACCOMODATION - ENT Exam ENT Exam: Mucous Membranes Moist, Normal Exam - Neck Exam Neck Exam: Normal Inspection - Respiratory Exam Respiratory Exam: Decreased Breath Sounds, NORMAL BREATHING PATTERN - Cardiovascular Exam Cardiovascular Exam: Irregular Rhythm - GI/Abdominal Exam GI & Abdominal Exam: Distended, Soft, Normal Bowel Sounds - Extremities Exam Extremities Exam: Full ROM, Normal Inspection Assessment and Plan (1) Atrial fibrillation with RVR Status: Acute (2) CHF (congestive heart failure) Status: Acute (3) Prostate CA Status: Chronic (4) Anemia Status: Acute (5) ESRD (end stage renal disease) on dialysis Status: Chronic - Assessment and Plan (Free Text) Assessment: maintain hd mwf avoid consuelo GI work up a fib management per cardiology
[2017-06-17] MEDS ORDERED: Perflutren Lipid Microsphere 1.5 ML SUS IV ONE (11:21)
[2017-06-17] MEDS: (Novolog) Insulin Aspart, Recombinant 100 u/ml 10 ml vial SC SCH ×2 (12:52→17:43)
--- NOTE | 2017-06-17 15:54 | CP.PCM.PN ---
<Christian Walton - Last Filed: 06/17/17 15:43> Subjective - Date & Time of Evaluation Date of Evaluation: 06/17/17 Time of Evaluation: 15:43 - Subjective Subjective: PGY-[address] Ptots No acute events noted overnight. Patient complained of feeling short of breath. He denied chest pain or palpitations. He denied feeling lightheaded. Objective - Vital Signs/Intake and Output Vital Signs (last 24 hours): Temp Pulse Resp BP Pulse Ox 99.0 F 98 H 20 108/60 94 L 06/17/17 07:10 06/17/17 13:20 06/17/17 07:10 06/17/17 13:20 06/17/17 07:10 - Medications Medications: Current Medications Amoxicillin (Amoxil 250 Mg Cap) 250 mg PO Q12 [facility] Last Admin: 06/17/17 09:36 Dose: 250 mg Aspirin (Ecotrin) 81 mg PO DAILY [facility] Last Admin: 06/17/17 09:36 Dose: 81 mg Diltiazem HCl (Cardizem) 30 mg PO QID [facility] Last Admin: 06/17/17 13:19 Dose: Not Given Ferrous Gluconate (Fergon) 324 mg PO DAILY [facility] Last Admin: 06/17/17 09:37 Dose: 324 mg Guaifenesin/Dextromethorphan (Robitussin Dm) 5 ml PO Q4H PRN PRN Reason: Cough Last Admin: 06/17/17 09:37 Dose: 5 ml Heparin Sodium (Porcine) (Heparin) 5,000 units SC Q8 [facility] Last Admin: 06/17/17 13:17 Dose: 5,000 units Insulin Aspart (Novolog) 0 unit SC ACTID [facility] PRN Reason: Protocol Last Admin: 06/17/17 12:52 Dose: 10 unit Metoprolol Succinate (Toprol Xl) 25 mg PO DAILY [facility] Last Admin: 06/17/17 09:37 Dose: 25 mg Pantoprazole Sodium (Protonix Ec Tab) 40 mg PO DAILY [facility] Last Admin: 06/17/17 09:37 Dose: 40 mg Polyethylene Glycol/Electrolytes (Golytely) 4,000 ml PO ONCE ONE Stop: 06/17/17 18:01 Rosuvastatin Calcium (Crestor) 5 mg PO HS [facility] Last Admin: 06/16/17 21:13 Dose: 5 mg - Labs Labs: 06/15/17 08:43 06/15/17 08:43 PT 15.8 SECONDS (9.7-12.2) H 06/13/17 17:07 INR 1.4 06/13/17 17:07 APTT 37 SECONDS (21-34) H 06/13/17 17:07 - Additional Findings Additional findings: - Constitutional Appears: Non-toxic (but looks weak, able to converse, awake ), No Acute Distress - Head Exam Head Exam: ATRAUMATIC, NORMOCEPHALIC - Eye Exam Eye Exam: Normal appearance - ENT Exam ENT Exam: Mucous Membranes Dry - Neck Exam Neck Exam: Full ROM. absent: Tenderness - Respiratory Exam Respiratory Exam: Clear to Ausculation Bilateral, NORMAL BREATHING PATTERN - Cardiovascular Exam Cardiovascular Exam: REGULAR RHYTHM - GI/Abdominal Exam GI & Abdominal Exam: Soft, Normal Bowel Sounds. absent: Tenderness - Extremities Exam Extremities Exam: Full ROM, Normal Inspection. absent: Pedal Edema - Back Exam Back Exam: absent: rash noted - Neurological Exam Neurological Exam: Alert, Awake, Normal Gait, Oriented x3 - Psychiatric Exam Psychiatric exam: Normal Affect, Normal Mood - Skin Skin Exam: Intact, Normal Color Assessment and Plan (1) Atrial fibrillation with RVR Status: Acute (2) CHF (congestive heart failure) Status: Acute (3) HTN (hypertension) Status: Chronic (4) Liver mass Status: Acute - Assessment and Plan (Free Text) Assessment: (1) Atrial fibrillation with RVR Con't cardizem 30mg PO QID Con't metoprolol succinate 25mg PO QD Con't aspirin 81mg PO QD HOLD anticoagulation for tentative colonoscopy tomorrow 06/18/17 Status: Acute (2) CHF (congestive heart failure) Assessment & Plan: Ischemic Cardiomyopathy Patient with lifevest - fitted by Dr Potts CABG 03/2017 - EF of 30% ECHO 06/16/17 shows EF of 25% (read by Dr Potts) * Patient needs ICD however must be weighed against life expectancy Con't meds as listed above Con't rosuvastatin 5mg PO HS Status: Acute (3) HTN (hypertension) Assessment & Plan: BP well controlled Con't diltiazem 30mg PO QID Con't metorprolol succinate 25mg PO QD Status: Chronic (4) Liver mass Assessment & Plan: Hx of prostate CA Metasteses suspected GI recommends colonoscopy Colonoscopy is a low-risk procedure thus patient is clear from cardiac standpoint. Status: Acute <Jonathan Potts - Last Filed: 06/17/17 18:25> Objective - Vital Signs/Intake and Output Vital Signs (last 24 hours): Temp Pulse Resp BP Pulse Ox 98.2 F 94 H 20 94/58 L 99 06/17/17 15:15 06/17/17 15:15 06/17/17 15:15 06/17/17 15:15 06/17/17 15:15 - Medications Medications: Current Medications Amoxicillin (Amoxil 250 Mg Cap) 250 mg PO Q12 [facility] Last Admin: 06/17/17 09:36 Dose: 250 mg Aspirin (Ecotrin) 81 mg PO DAILY [facility] Last Admin: 06/17/17 09:36 Dose: 81 mg Diltiazem HCl (Cardizem) 30 mg PO QID [facility] Last Admin: 06/17/17 17:40 Dose: 30 mg Ferrous Gluconate (Fergon) 324 mg PO DAILY [facility] Last Admin: 06/17/17 09:37 Dose: 324 mg Guaifenesin/Dextromethorphan (Robitussin Dm) 5 ml PO Q4H PRN PRN Reason: Cough Last Admin: 06/17/17 17:41 Dose: 5 ml Heparin Sodium (Porcine) (Heparin) 5,000 units SC Q8 [facility] Last Admin: 06/17/17 13:17 Dose: 5,000 units Insulin Aspart (Novolog) 0 unit SC ACTID [facility] PRN Reason: Protocol Last Admin: 06/17/17 17:43 Dose: 2 unit Metoprolol Succinate (Toprol Xl) 25 mg PO DAILY [facility] Last Admin: 06/17/17 09:37 Dose: 25 mg Pantoprazole Sodium (Protonix Ec Tab) 40 mg PO DAILY [facility] Last Admin: 06/17/17 09:37 Dose: 40 mg Rosuvastatin Calcium (Crestor) 5 mg PO HS [facility] Last Admin: 06/16/17 21:13 Dose: 5 mg - Labs Labs: 06/15/17 08:43 06/15/17 08:43 PT 15.8 SECONDS (9.7-12.2) H 06/13/17 17:07 INR 1.4 06/13/17 17:07 APTT 37 SECONDS (21-34) H 06/13/17 17:07 Assessment and Plan - Assessment and Plan (Free Text) Plan: Patient seen and evaluated by me Cleared for Colonoscopy tomorrow ECHO shows EF of around 25-30% Needs AICD as life expectancy expected to be more than 2 years Possible AICD on Friday at [place] Patient will return back after the procedure
[2017-06-17] MEDS: Peg-Electrolyte Oral Soln 4L (Golytely) PO ONE ×2 (17:41→17:53)
--- NOTE | 2017-06-17 19:50 | CP.PCM.PN ---
Subjective - Date & Time of Evaluation Date of Evaluation: 06/17/17 Time of Evaluation: 11:30 - Subjective Subjective: patient seen, no complaints, discussion of conditon, wants to have treatment option discussed with him, patient will undergo colonoscopy tomorrow discussion with staff regarding Heme oncology follow up and subacute plan patient aware of plan and discussion Objective - Vital Signs/Intake and Output Vital Signs (last 24 hours): Temp Pulse Resp BP Pulse Ox 98.2 F 112 H 20 94/58 L 99 06/17/17 15:15 06/17/17 16:00 06/17/17 15:15 06/17/17 15:15 06/17/17 15:15 - Medications Medications: Current Medications Amoxicillin (Amoxil 250 Mg Cap) 250 mg PO Q12 [facility] Last Admin: 06/17/17 09:36 Dose: 250 mg Aspirin (Ecotrin) 81 mg PO DAILY [facility] Last Admin: 06/17/17 09:36 Dose: 81 mg Diltiazem HCl (Cardizem) 30 mg PO QID [facility] Last Admin: 06/17/17 17:40 Dose: 30 mg Guaifenesin/Dextromethorphan (Robitussin Dm) 5 ml PO Q4H PRN PRN Reason: Cough Last Admin: 06/17/17 17:41 Dose: 5 ml Heparin Sodium (Porcine) (Heparin) 5,000 units SC Q8 [facility] Last Admin: 06/17/17 13:17 Dose: 5,000 units Insulin Aspart (Novolog) 0 unit SC ACTID [facility] PRN Reason: Protocol Last Admin: 06/17/17 17:43 Dose: 2 unit Insulin Detemir (Levemir) 10 unit SC DAILY [facility] Metoprolol Succinate (Toprol Xl) 25 mg PO DAILY [facility] Last Admin: 06/17/17 09:37 Dose: 25 mg Pantoprazole Sodium (Protonix Ec Tab) 40 mg PO DAILY [facility] Last Admin: 06/17/17 09:37 Dose: 40 mg Rosuvastatin Calcium (Crestor) 5 mg PO HS [facility] Last Admin: 06/16/17 21:13 Dose: 5 mg - Labs Labs: 06/15/17 08:43 06/15/17 08:43 PT 15.8 SECONDS (9.7-12.2) H 06/13/17 17:07 INR 1.4 06/13/17 17:07 APTT 37 SECONDS (21-34) H 06/13/17 17:07 - Constitutional Appears: Non-toxic - Head Exam Head Exam: ATRAUMATIC, NORMOCEPHALIC - Eye Exam Eye Exam: Normal appearance. absent: Nystagmus - ENT Exam ENT Exam: Mucous Membranes Dry - Respiratory Exam Respiratory Exam: Clear to Ausculation Bilateral, NORMAL BREATHING PATTERN - Cardiovascular Exam Cardiovascular Exam: Irregular Rhythm - GI/Abdominal Exam GI & Abdominal Exam: Soft, Normal Bowel Sounds - Extremities Exam Extremities Exam: Full ROM. absent: Joint Swelling, Pedal Edema, Tenderness - Neurological Exam Neurological Exam: Alert, Awake, Normal Gait, Oriented x3 - Psychiatric Exam Psychiatric exam: Normal Affect, Normal Mood. absent: Depressed - Skin Skin Exam: Intact, Normal Color Assessment and Plan - Assessment and Plan (Free Text) Assessment: Patient with ESRD on scheduled HD Metastatic Ca to liver - Colonoscopy in AM Treatment option will be discussed IDDM2 with episode of hypoglycemia, off insulin - now e=with hyperglycemia, will resume insulin at low dose, patient has good feeding continue to monitor A FIB and CAD - as per cardio continue current care patient agreed to subacute accordingly
[2017-06-18] MEDS: (Novolog) Insulin Aspart, Recombinant 100 u/ml 10 ml vial SC SCH ×3 (08:05→16:51)
[2017-06-18] MEDS: Metoprolol Succinate 25 mg XL Tab PO SCH (11:47)
--- NOTE | 2017-06-18 11:57 | CARD ---
APPROVED REPORT EXAM: Two-dimensional and M-mode echocardiogram with Doppler, color Doppler with contrast. Other Information Quality : GoodRhythm : INDICATION LV Function:Systolic 2D DIMENSIONS IVSd1.5 (0.7-1.1cm)LVDd5.1 (3.9-5.9cm) PWd1.0 (0.7-1.1cm)LVDs4.2 (2.5-4.0cm) FS (%) 18.6 %LVEF (%)35.0 (>50%) M-Mode DIMENSIONS Left Atrium (MM)4.62 (2.5-4.0cm)IVSd1.04 (0.7-1.1cm) Aortic Root3.37 (2.2-3.7cm)LVDd5.90 (4.0-5.6cm) Aortic Cusp Exc.1.77 (1.5-2.0cm)PWd1.11 (0.7-1.1cm) FS (%) 15 %LVDs5.03 (2.0-3.8cm) LVEF (%)31 (>50%) Mitral Valve E/A ratio0.0 TDI E/Lateral E'0.0E/Medial E'0.0 Tricuspid Valve TR Peak [id number] Peak Gr.37mmHg LEFT VENTRICLE The Left Ventricle is mildly dilated. There is normal left ventricular wall thickness. hypokinetic IV septum. The systolic function is moderately impaired. The ejection fraction is moderately impaired. Regional wall motion abnormalities noted. No left ventricle thrombus noted on this study. There is no ventricular septal defect visualized. There is no left ventricular aneurysm. There is no mass noted in the left ventricle. RIGHT VENTRICLE The right ventricle is normal size. There is normal right ventricular wall thickness. The right ventricular systolic function is normal. ATRIA The left atrium is mildly dilated. The right atrium is mildly dilated. The interatrial septum is intact with no evidence for an atrial septal defect. AORTIC VALVE The aortic valve is calcified and displays decreased opening. No aortic regurgitation is present. There is no aortic valvular vegetation. MITRAL VALVE The mitral valve is normal in structure. There is no mitral valve stenosis. Mitral regurgitation is mild. TRICUSPID VALVE The tricuspid valve is normal in structure. There is trace to mild tricuspid regurgitation. PULMONIC VALVE The pulmonary valve is normal in structure. There is mild pulmonic valvular regurgitation. GREAT VESSELS The aortic root is normal in size. The ascending aorta is normal in size. The pulmonary artery is normal. PERICARDIAL EFFUSION There is a trace loculated posterior pericardial effusion. <Conclusion> The Left Ventricle is mildly dilated. The systolic function is moderately impaired. The ejection fraction is moderately impaired. Regional wall motion abnormalities noted. The left atrium is mildly dilated. The right atrium is mildly dilated. The aortic valve is calcified and displays decreased opening. Mitral regurgitation is mild. There is mild pulmonic valvular regurgitation. LV EF IS 30%. ISCHEMIC CARDIOMYOPATHY.
--- NOTE | 2017-06-18 12:56 | CP.PCM.PN ---
Subjective - Date & Time of Evaluation Date of Evaluation: 06/18/17 Time of Evaluation: 12:53 - Subjective Subjective: CC: CEA elevated, liver metastases of unknowm primary Colonoscopy deferred- patient in dialysis today. rescheduled for tomorrow AM Feels well Objective - Vital Signs/Intake and Output Vital Signs (last 24 hours): Temp Pulse Resp BP Pulse Ox 97.6 F 83 20 103/65 96 06/18/17 09:10 06/18/17 12:10 06/18/17 09:10 06/18/17 12:10 06/18/17 09:10 Intake and Output: 06/18/17 06/18/17 06:59 18:59 Intake Total 240 Balance 240 - Medications Medications: Current Medications Amoxicillin (Amoxil 250 Mg Cap) 250 mg PO Q12 [facility] Last Admin: 06/17/17 21:06 Dose: 250 mg Aspirin (Ecotrin) 81 mg PO DAILY [facility] Last Admin: 06/17/17 09:36 Dose: 81 mg Bisacodyl (Dulcolax) 10 mg PO ONCE ONE Stop: 06/18/17 17:01 Diltiazem HCl (Cardizem) 30 mg PO QID [facility] Last Admin: 06/18/17 11:46 Dose: Not Given Guaifenesin/Dextromethorphan (Robitussin Dm) 5 ml PO Q4H PRN PRN Reason: Cough Last Admin: 06/17/17 17:41 Dose: 5 ml Heparin Sodium (Porcine) (Heparin) 5,000 units SC Q8 [facility] Last Admin: 06/18/17 06:01 Dose: 5,000 units Insulin Aspart (Novolog) 0 unit SC ACTID [facility] PRN Reason: Protocol Last Admin: 06/18/17 08:05 Dose: Not Given Insulin Detemir (Levemir) 10 unit SC DAILY [facility] Metoprolol Succinate (Toprol Xl) 25 mg PO DAILY [facility] Last Admin: 06/18/17 11:47 Dose: Not Given Pantoprazole Sodium (Protonix Ec Tab) 40 mg PO DAILY [facility] Last Admin: 06/17/17 09:37 Dose: 40 mg Rosuvastatin Calcium (Crestor) 5 mg PO HS [facility] Last Admin: 06/17/17 21:06 Dose: 5 mg - Labs Labs: 06/15/17 08:43 06/15/17 08:43 PT 15.8 SECONDS (9.7-12.2) H 06/13/17 17:07 INR 1.4 06/13/17 17:07 APTT 37 SECONDS (21-34) H 06/13/17 17:07 - Constitutional Appears: No Acute Distress, Chronically Ill - Respiratory Exam Respiratory Exam: Clear to Ausculation Bilateral - Cardiovascular Exam Cardiovascular Exam: REGULAR RHYTHM - GI/Abdominal Exam GI & Abdominal Exam: Soft, Normal Bowel Sounds. absent: Tenderness Assessment and Plan (1) Abnormal liver enzymes Assessment & Plan: Improving ischemic liver injury secondary to cardiac event Full resolution expected Status: Acute (2) Atrial fibrillation with RVR Assessment & Plan: [employer] managing Status: Acute (3) CHF (congestive heart failure) Assessment & Plan: Stable Status: Acute (4) End stage renal disease Assessment & Plan: On dialysis Status: Acute (5) Prostate CA Assessment & Plan: R/O Metastases Seen by dr Ware Status: Acute (6) Liver mass Assessment & Plan: metastases are suspected. Colonoscopy tomorrow to search for colon primary (CEA markedly elevated too) Cardiology clearance noted Status: Acute
--- NOTE | 2017-06-18 13:18 | CP.PCM.PN ---
Subjective - Date & Time of Evaluation Date of Evaluation: 06/18/17 Time of Evaluation: 13:15 - Subjective Subjective: Seen at dialysis- UF 2000ml no new complaints- tolerating dialysis well has liver mets- for colonoscopy as part of workup- likely in AM BP controlled HR-80s now Objective - Vital Signs/Intake and Output Vital Signs (last 24 hours): Temp Pulse Resp BP Pulse Ox 97.3 F L 70 18 114/70 100 06/18/17 12:40 06/18/17 12:40 06/18/17 12:40 06/18/17 12:40 06/18/17 12:40 Intake and Output: 06/18/17 06/18/17 06:59 18:59 Intake Total 240 Balance 240 - Medications Medications: Current Medications Amoxicillin (Amoxil 250 Mg Cap) 250 mg PO Q12 [facility] Last Admin: 06/17/17 21:06 Dose: 250 mg Aspirin (Ecotrin) 81 mg PO DAILY [facility] Last Admin: 06/17/17 09:36 Dose: 81 mg Bisacodyl (Dulcolax) 10 mg PO ONCE ONE Stop: 06/18/17 17:01 Diltiazem HCl (Cardizem) 30 mg PO QID [facility] Last Admin: 06/18/17 11:46 Dose: Not Given Guaifenesin/Dextromethorphan (Robitussin Dm) 5 ml PO Q4H PRN PRN Reason: Cough Last Admin: 06/17/17 17:41 Dose: 5 ml Heparin Sodium (Porcine) (Heparin) 5,000 units SC Q8 [facility] Last Admin: 06/18/17 06:01 Dose: 5,000 units Insulin Aspart (Novolog) 0 unit SC ACTID [facility] PRN Reason: Protocol Last Admin: 06/18/17 08:05 Dose: Not Given Insulin Detemir (Levemir) 10 unit SC DAILY [facility] Metoprolol Succinate (Toprol Xl) 25 mg PO DAILY [facility] Last Admin: 06/18/17 11:47 Dose: Not Given Pantoprazole Sodium (Protonix Ec Tab) 40 mg PO DAILY [facility] Last Admin: 06/17/17 09:37 Dose: 40 mg Polyethylene Glycol/Electrolytes (Golytely) 4,000 ml PO ONCE ONE Stop: 06/18/17 18:01 Rosuvastatin Calcium (Crestor) 5 mg PO HS [facility] Last Admin: 06/17/17 21:06 Dose: 5 mg - Labs Labs: 06/15/17 08:43 06/15/17 08:43 PT 15.8 SECONDS (9.7-12.2) H 06/13/17 17:07 INR 1.4 06/13/17 17:07 APTT 37 SECONDS (21-34) H 06/13/17 17:07 - Constitutional Appears: No Acute Distress, Chronically Ill - Head Exam Head Exam: ATRAUMATIC, NORMAL INSPECTION - Eye Exam Eye Exam: EOMI, Normal appearance - Neck Exam Neck Exam: Normal Inspection. absent: Tenderness - Respiratory Exam Respiratory Exam: Clear to Ausculation Bilateral, NORMAL BREATHING PATTERN - Cardiovascular Exam Cardiovascular Exam: Irregular Rhythm, +S1 - GI/Abdominal Exam GI & Abdominal Exam: Soft. absent: Tenderness - Extremities Exam Extremities Exam: Normal Inspection. absent: Tenderness - Neurological Exam Neurological Exam: Alert, CN II-XII Intact - Skin Skin Exam: Dry, Warm Assessment and Plan (1) CKD (chronic kidney disease) stage 5, GFR less than 15 ml/min Status: Acute (2) Paroxysmal atrial fibrillation with rapid ventricular response Status: Acute (3) ESRD (end stage renal disease) Status: Acute (4) Liver metastases Status: Acute (5) Abnormal liver enzymes Status: Acute - Assessment and Plan (Free Text) Plan: Same dialysis MWF Same rate control await colonoscopy
[2017-06-18] MEDS: Pantoprazole 40 mg EC Tab PO SCH (14:36)
[2017-06-18] MEDS: Insulin Detemir 100 units/ml Vial (Levemir) SC SCH (14:37)
--- NOTE | 2017-06-18 16:21 | CP.PCM.PN ---
Subjective - Date & Time of Evaluation Date of Evaluation: 06/18/17 Time of Evaluation: 03:45 - Subjective Subjective: Patient seen- no complaints no chest pain- Anemia and Metastatic Ca , was seen by oncology and gastro -awaiting colonoscopy result - which is planned for tomorrow, for treatment option CAD with AFIB- plan as per cardio notes URI is improving Patient is open to subacute accordingly patient aware of condition and plan Objective - Vital Signs/Intake and Output Vital Signs (last 24 hours): Temp Pulse Resp BP Pulse Ox 97.3 F L 70 18 114/70 100 06/18/17 12:40 06/18/17 12:40 06/18/17 12:40 06/18/17 12:40 06/18/17 12:40 Intake and Output: 06/18/17 06/18/17 06:59 18:59 Intake Total 240 Balance 240 - Medications Medications: Current Medications Amoxicillin (Amoxil 250 Mg Cap) 250 mg PO Q12 [facility] Last Admin: 06/18/17 14:36 Dose: 250 mg Aspirin (Ecotrin) 81 mg PO DAILY [facility] Last Admin: 06/18/17 14:36 Dose: 81 mg Bisacodyl (Dulcolax) 10 mg PO ONCE ONE Stop: 06/18/17 17:01 Diltiazem HCl (Cardizem) 30 mg PO QID [facility] Last Admin: 06/18/17 14:37 Dose: Not Given Guaifenesin/Dextromethorphan (Robitussin Dm) 5 ml PO Q4H PRN PRN Reason: Cough Last Admin: 06/17/17 17:41 Dose: 5 ml Heparin Sodium (Porcine) (Heparin) 5,000 units SC Q8 [facility] Last Admin: 06/18/17 14:36 Dose: 5,000 units Insulin Aspart (Novolog) 0 unit SC ACTID [facility] PRN Reason: Protocol Last Admin: 06/18/17 14:37 Dose: Not Given Insulin Detemir (Levemir) 10 unit SC DAILY [facility] Last Admin: 06/18/17 14:37 Dose: 10 unit Metoprolol Succinate (Toprol Xl) 25 mg PO DAILY [facility] Last Admin: 06/18/17 11:47 Dose: Not Given Pantoprazole Sodium (Protonix Ec Tab) 40 mg PO DAILY [facility] Last Admin: 06/18/17 14:36 Dose: 40 mg Polyethylene Glycol/Electrolytes (Golytely) 4,000 ml PO ONCE ONE Stop: 06/18/17 18:01 Rosuvastatin Calcium (Crestor) 5 mg PO HS [facility] Last Admin: 06/17/17 21:06 Dose: 5 mg - Labs Labs: 06/15/17 08:43 06/15/17 08:43 PT 15.8 SECONDS (9.7-12.2) H 06/13/17 17:07 INR 1.4 06/13/17 17:07 APTT 37 SECONDS (21-34) H 06/13/17 17:07
[2017-06-18] MEDS ORDERED: Bisacodyl 5mg EC Tab PO ONE (17:00)
[2017-06-18] MEDS ORDERED: Peg-Electrolyte Oral Soln 4L (Golytely) PO ONE (18:00)
--- NOTE | 2017-06-18 21:38 | CP.PCM.PN ---
Subjective - Date & Time of Evaluation Date of Evaluation: 06/18/17 Time of Evaluation: 18:05 - Subjective Subjective: Patient seen and evaluated Denies chest pain and dyspnea Physical Examination - Additional Findings Additional findings: - Constitutional Appears: Non-toxic (but looks weak, able to converse, awake ), No Acute Distress - Head Exam Head Exam: ATRAUMATIC, NORMOCEPHALIC - Eye Exam Eye Exam: Normal appearance - ENT Exam ENT Exam: Mucous Membranes Dry - Neck Exam Neck Exam: Full ROM. absent: Tenderness - Respiratory Exam Respiratory Exam: Clear to Ausculation Bilateral, NORMAL BREATHING PATTERN - Cardiovascular Exam Cardiovascular Exam: REGULAR RHYTHM - GI/Abdominal Exam GI & Abdominal Exam: Soft, Normal Bowel Sounds. absent: Tenderness - Extremities Exam Extremities Exam: Full ROM, Normal Inspection. absent: Pedal Edema - Back Exam Back Exam: absent: rash noted - Neurological Exam Neurological Exam: Alert, Awake, Normal Gait, Oriented x3 - Psychiatric Exam Psychiatric exam: Normal Affect, Normal Mood - Skin Skin Exam: Intact, Normal Color Objective - Vital Signs/Intake and Output Vital Signs (last 24 hours): Temp Pulse Resp BP Pulse Ox 98.4 F 98 H 20 103/55 L 97 06/18/17 15:00 06/18/17 16:30 06/18/17 15:00 06/18/17 15:00 06/18/17 15:00 - Medications Medications: Current Medications Amoxicillin (Amoxil 250 Mg Cap) 250 mg PO Q12 [facility] Last Admin: 06/18/17 21:33 Dose: 250 mg Aspirin (Ecotrin) 81 mg PO DAILY [facility] Last Admin: 06/18/17 14:36 Dose: 81 mg Diltiazem HCl (Cardizem) 30 mg PO QID [facility] Last Admin: 06/18/17 21:33 Dose: 30 mg Guaifenesin/Dextromethorphan (Robitussin Dm) 5 ml PO Q4H PRN PRN Reason: Cough Last Admin: 06/17/17 17:41 Dose: 5 ml Heparin Sodium (Porcine) (Heparin) 5,000 units SC Q8 [facility] Last Admin: 06/18/17 21:15 Dose: Not Given Insulin Aspart (Novolog) 0 unit SC ACTID [facility] PRN Reason: Protocol Last Admin: 06/18/17 16:51 Dose: 6 unit Insulin Detemir (Levemir) 10 unit SC DAILY [facility] Last Admin: 06/18/17 14:37 Dose: 10 unit Metoprolol Succinate (Toprol Xl) 25 mg PO DAILY [facility] Last Admin: 06/18/17 11:47 Dose: Not Given Pantoprazole Sodium (Protonix Ec Tab) 40 mg PO DAILY [facility] Last Admin: 06/18/17 14:36 Dose: 40 mg Rosuvastatin Calcium (Crestor) 5 mg PO HS [facility] Last Admin: 06/18/17 21:33 Dose: 5 mg - Labs Labs: 06/15/17 08:43 06/15/17 08:43 PT 15.8 SECONDS (9.7-12.2) H 06/13/17 17:07 INR 1.4 06/13/17 17:07 APTT 37 SECONDS (21-34) H 06/13/17 17:07 Assessment and Plan - Assessment and Plan (Free Text) Assessment: (1) Atrial fibrillation with RVR Con't cardizem 30mg PO QID Con't metoprolol succinate 25mg PO QD Con't aspirin 81mg PO QD HOLD anticoagulation for tentative colonoscopy tomorrow 06/18/17 Status: Acute (2) CHF (congestive heart failure) Assessment & Plan: Ischemic Cardiomyopathy Patient with lifevest - fitted by Dr Potts CABG 03/2017 - EF of 30% ECHO 06/16/17 shows EF of 25% (read by Dr Potts) * Patient needs ICD however must be weighed against life expectancy Con't meds as listed above Con't rosuvastatin 5mg PO HS Status: Acute (3) HTN (hypertension) Assessment & Plan: BP well controlled Con't diltiazem 30mg PO QID Con't metorprolol succinate 25mg PO QD Status: Chronic (4) Liver mass Assessment & Plan: Hx of prostate CA Metasteses suspected GI recommends colonoscopy Colonoscopy is a low-risk procedure thus patient is clear from cardiac standpoint. Status: Acute (5) AICD-Plan Patient seen and evaluated by me Cleared for Colonoscopy tomorrow ECHO shows EF of around 25-30% Needs AICD as life expectancy expected to be more than 2 years Possible AICD on Friday at [facility] Patient will return back after the procedure
--- NOTE | 2017-06-18 22:31 | CARD ---
APPROVED REPORT EKG Measurement Heart [id number] <Conclusion> Atrial fibrillation with rapid ventricular response Left axis deviation ST & T wave abnormality, consider lateral ischemia Abnormal ECG
[2017-06-19 07:15] LABS: PROTHROMBIN TIME 11.7 SECONDS (9.7-12.2)
[2017-06-19 07:23] LABS: MEAN CORPUSCULAR HEMOGLOBIN 28.9 pg (27.0-31.0); MEAN CORPUSCULAR HGB CONC 33.5 g/dL (33.0-37.0); MEAN PLATELET VOLUME 9.4 fL (7.2-11.7); RBC 4.15 Mil/uL (4.40-5.90); RED CELL DISTRIBUTION WIDTH 19.4 % (11.5-14.5); WHITE BLOOD COUNT 7.4 K/uL (4.8-10.8)
[2017-06-19 07:29] LABS: PLT BASE COUNT 165 K/uL
[2017-06-19 07:30] LABS: FUNCTIONING PLTS 84 K/uL; PLT(ADP) 81 K/uL
[2017-06-19] MEDS ORDERED: Sodium Chloride 0.9% 1,000 ML IV ONE (07:30)
[2017-06-19] MEDS ORDERED: Etomidate 20 mg/10ml Inj IV ONE (07:34)
[2017-06-19] MEDS ORDERED: Esmolol 100 mg/10ml Inj IV ONE (07:34)
[2017-06-19] MEDS ORDERED: Lidocaine Hydrochloride 5 ML INJ ONE (07:37)
[2017-06-19] MEDS: (Novolog) Insulin Aspart, Recombinant 100 u/ml 10 ml vial SC SCH ×3 (07:52→17:41)
[2017-06-19] MEDS ORDERED: Sodium Chloride 0.9% 50 ML IV ONE (08:05)
[2017-06-19 08:06] LABS: ALBUMIN 3.1 g/dL (3.5-5.0); CALCIUM 8.4 mg/dl (8.6-10.4)
[2017-06-19] MEDS: Metoprolol Succinate 25 mg XL Tab PO SCH (09:12)
[2017-06-19] MEDS: Pantoprazole 40 mg EC Tab PO SCH (09:12)
--- NOTE | 2017-06-19 09:16 | CP.PCM.PN ---
Subjective - Date & Time of Evaluation Date of Evaluation: 06/19/17 Time of Evaluation: 09:14 - Subjective Subjective: stable dialysis 2/7; course stable VR- 80s s/p colonoscopy and colon bx this AM feels ok- no new complaint K still low- needs repletion Objective - Vital Signs/Intake and Output Vital Signs (last 24 hours): Temp Pulse Resp BP Pulse Ox 97 F L 115 H 18 105/52 L 100 06/19/17 08:35 06/19/17 08:35 06/19/17 08:35 06/19/17 08:35 06/19/17 08:35 Intake and Output: 06/19/17 06/19/17 06:59 18:59 Intake Total 4000 Balance 4000 - Medications Medications: Current Medications Amoxicillin (Amoxil 250 Mg Cap) 250 mg PO Q12 [facility] Last Admin: 06/19/17 09:12 Dose: 250 mg Aspirin (Ecotrin) 81 mg PO DAILY [facility] Last Admin: 06/19/17 09:12 Dose: 81 mg Diltiazem HCl (Cardizem) 30 mg PO QID [facility] Last Admin: 06/19/17 09:12 Dose: 30 mg Guaifenesin/Dextromethorphan (Robitussin Dm) 5 ml PO Q4H PRN PRN Reason: Cough Last Admin: 06/17/17 17:41 Dose: 5 ml Heparin Sodium (Porcine) (Heparin) 5,000 units SC Q8 [facility] Last Admin: 06/19/17 05:11 Dose: Not Given Insulin Aspart (Novolog) 0 unit SC ACTID [facility] PRN Reason: Protocol Last Admin: 06/19/17 07:52 Dose: Not Given Insulin Detemir (Levemir) 10 unit SC DAILY [facility] Last Admin: 06/18/17 14:37 Dose: 10 unit Metoprolol Succinate (Toprol Xl) 25 mg PO DAILY [facility] Last Admin: 06/19/17 09:12 Dose: 25 mg Pantoprazole Sodium (Protonix Ec Tab) 40 mg PO DAILY [facility] Last Admin: 06/19/17 09:12 Dose: 40 mg Rosuvastatin Calcium (Crestor) 5 mg PO HS [facility] Last Admin: 06/18/17 21:33 Dose: 5 mg - Labs Labs: 06/19/17 07:03 06/19/17 07:03 PT 11.7 SECONDS (9.7-12.2) 06/19/17 07:03 INR 1.0 06/19/17 07:03 APTT 37 SECONDS (21-34) H 06/13/17 17:07 - Constitutional Appears: No Acute Distress, Chronically Ill - Head Exam Head Exam: ATRAUMATIC, NORMAL INSPECTION - Eye Exam Eye Exam: EOMI, Normal appearance - Neck Exam Neck Exam: Normal Inspection. absent: Tenderness - Respiratory Exam Respiratory Exam: Clear to Ausculation Bilateral, NORMAL BREATHING PATTERN - Cardiovascular Exam Cardiovascular Exam: Irregular Rhythm, +S1 - GI/Abdominal Exam GI & Abdominal Exam: Soft. absent: Tenderness - Extremities Exam Extremities Exam: Normal Inspection. absent: Tenderness - Neurological Exam Neurological Exam: Alert, CN II-XII Intact - Skin Skin Exam: Dry, Warm Assessment and Plan (1) CKD (chronic kidney disease) stage 5, GFR less than 15 ml/min Status: Acute (2) Paroxysmal atrial fibrillation with rapid ventricular response Status: Acute (3) ESRD (end stage renal disease) Status: Acute (4) Liver metastases Status: Acute (5) Abnormal liver enzymes Status: Acute - Assessment and Plan (Free Text) Plan: replete K dialysis MWF await bx results mets workup
[2017-06-19] MEDS ORDERED: Potassium Chloride 20 mEq/15 ml LIQ UD PO ONE ×2 (09:30→11:00)
[2017-06-19] MEDS: Insulin Detemir 100 units/ml Vial (Levemir) SC SCH (13:43)
--- NOTE | 2017-06-19 16:23 | CP.PCM.PN ---
<Christian Walton - Last Filed: 06/19/17 16:19> Subjective - Date & Time of Evaluation Date of Evaluation: 06/19/17 Time of Evaluation: 10:40 - Subjective Subjective: PGY-[address] Potts No acute events noted overnight. Patient denied chest pain or palpitations. Patient did not offer any other complaints. Objective - Vital Signs/Intake and Output Vital Signs (last 24 hours): Temp Pulse Resp BP Pulse Ox 97.9 F 89 20 101/57 L 95 06/19/17 15:55 06/19/17 15:55 06/19/17 15:55 06/19/17 15:55 06/19/17 15:55 Intake and Output: 06/19/17 06/19/17 06:59 18:59 Intake Total 4000 Balance 4000 - Medications Medications: Current Medications Amoxicillin (Amoxil 250 Mg Cap) 250 mg PO Q12 [facility] Last Admin: 06/19/17 09:12 Dose: 250 mg Aspirin (Ecotrin) 81 mg PO DAILY [facility] Last Admin: 06/19/17 09:12 Dose: 81 mg Diltiazem HCl (Cardizem) 30 mg PO QID [facility] Last Admin: 06/19/17 13:44 Dose: 30 mg Guaifenesin/Dextromethorphan (Robitussin Dm) 5 ml PO Q4H PRN PRN Reason: Cough Last Admin: 06/17/17 17:41 Dose: 5 ml Heparin Sodium (Porcine) (Heparin) 5,000 units SC Q8 [facility] Last Admin: 06/19/17 13:44 Dose: 5,000 units Insulin Aspart (Novolog) 0 unit SC ACTID [facility] PRN Reason: Protocol Last Admin: 06/19/17 13:43 Dose: 8 unit Insulin Detemir (Levemir) 10 unit SC DAILY [facility] Last Admin: 06/19/17 13:43 Dose: 10 unit Metoprolol Succinate (Toprol Xl) 25 mg PO DAILY [facility] Last Admin: 06/19/17 09:12 Dose: 25 mg Pantoprazole Sodium (Protonix Ec Tab) 40 mg PO DAILY [facility] Last Admin: 06/19/17 09:12 Dose: 40 mg Rosuvastatin Calcium (Crestor) 5 mg PO HS [facility] Last Admin: 06/18/17 21:33 Dose: 5 mg - Labs Labs: 06/19/17 07:03 06/19/17 07:03 PT 11.7 SECONDS (9.7-12.2) 06/19/17 07:03 INR 1.0 06/19/17 07:03 APTT 37 SECONDS (21-34) H 06/13/17 17:07 - Additional Findings Additional findings: - Constitutional Appears: Non-toxic (but looks weak, able to converse, awake ), No Acute Distress - Head Exam Head Exam: ATRAUMATIC, NORMOCEPHALIC - Eye Exam Eye Exam: Normal appearance - ENT Exam ENT Exam: Mucous Membranes Dry - Neck Exam Neck Exam: Full ROM. absent: Tenderness - Respiratory Exam Respiratory Exam: Clear to Ausculation Bilateral, NORMAL BREATHING PATTERN - Cardiovascular Exam Cardiovascular Exam: REGULAR RHYTHM - GI/Abdominal Exam GI & Abdominal Exam: Soft, Normal Bowel Sounds. absent: Tenderness - Extremities Exam Extremities Exam: Full ROM, Normal Inspection. absent: Pedal Edema - Back Exam Back Exam: absent: rash noted - Neurological Exam Neurological Exam: Alert, Awake, Normal Gait, Oriented x3 - Psychiatric Exam Psychiatric exam: Normal Affect, Normal Mood - Skin Skin Exam: Intact, Normal Color Assessment and Plan (1) Atrial fibrillation with RVR Status: Acute (2) CHF (congestive heart failure) Status: Acute (3) HTN (hypertension) Status: Chronic (4) Liver mass Status: Acute - Assessment and Plan (Free Text) Assessment: (1) Atrial fibrillation with RVR Con't cardizem 30mg PO QID Con't metoprolol succinate 25mg PO QD Con't aspirin 81mg PO QD HOLD anticoagulation for AICD placement tomorrow 06/20/17 Status: Acute (2) CHF (congestive heart failure) Assessment & Plan: Ischemic Cardiomyopathy Patient with lifevest - fitted by Dr Potts CABG 03/2017 - EF of 30% ECHO 06/16/17 shows EF of 25% (read by Dr Potts) * Patient to have AICD placement 06/20/17 at [place] as life expectancy expected to be more than 2 years Con't meds as listed above Con't rosuvastatin 5mg PO HS Status: Acute (3) HTN (hypertension) Assessment & Plan: BP well controlled Con't diltiazem 30mg PO QID Con't metorprolol succinate 25mg PO QD Status: Chronic (4) Liver mass Assessment & Plan: Hx of prostate CA Metasteses suspected GI recommends colonoscopy Colonoscopy is a low-risk procedure thus patient is clear from cardiac standpoint. Status: Acute (5) AICD-Plan Patient to be transferred to [facility] 06/20/17 for AICD placement, patient will return to [facility] after procedure NPO after midnight except medications Hold evening dose of heparin, resume heparin 2200 06/20/17 <Jonathan Potts - Last Filed: 06/19/17 23:05> Objective - Vital Signs/Intake and Output Vital Signs (last 24 hours): Temp Pulse Resp BP Pulse Ox 97.9 F 106 H 20 101/57 L 95 06/19/17 15:55 06/19/17 18:00 06/19/17 15:55 06/19/17 15:55 06/19/17 15:55 - Medications Medications: Current Medications Amoxicillin (Amoxil 250 Mg Cap) 250 mg PO Q12 [facility] Last Admin: 06/19/17 22:35 Dose: 250 mg Aspirin (Ecotrin) 81 mg PO DAILY [facility] Last Admin: 06/19/17 09:12 Dose: 81 mg Diltiazem HCl (Cardizem) 30 mg PO QID [facility] Last Admin: 06/19/17 22:35 Dose: 30 mg Guaifenesin/Dextromethorphan (Robitussin Dm) 5 ml PO Q4H PRN PRN Reason: Cough Last Admin: 06/17/17 17:41 Dose: 5 ml Heparin Sodium (Porcine) (Heparin) 5,000 units SC Q8 [facility] Last Admin: 06/19/17 13:44 Dose: 5,000 units Insulin Aspart (Novolog) 0 unit SC ACTID [facility] PRN Reason: Protocol Last Admin: 06/19/17 17:41 Dose: 2 unit Insulin Detemir (Levemir) 10 unit SC DAILY [facility] Last Admin: 06/19/17 13:43 Dose: 10 unit Metoprolol Succinate (Toprol Xl) 25 mg PO DAILY [facility] Last Admin: 06/19/17 09:12 Dose: 25 mg Pantoprazole Sodium (Protonix Ec Tab) 40 mg PO DAILY [facility] Last Admin: 06/19/17 09:12 Dose: 40 mg Rosuvastatin Calcium (Crestor) 5 mg PO HS [facility] Last Admin: 06/19/17 22:35 Dose: 5 mg - Labs Labs: 06/19/17 07:03 06/19/17 07:03 PT 11.7 SECONDS (9.7-12.2) 06/19/17 07:03 INR 1.0 06/19/17 07:03 APTT 37 SECONDS (21-34) H 06/13/17 17:07 Assessment and Plan - Assessment and Plan (Free Text) Plan: Patient seen and evaluated personally by me Plan of care as documented
--- NOTE | 2017-06-19 18:50 | CP.PCM.PN ---
Subjective - Date & Time of Evaluation Date of Evaluation: 06/19/17 Time of Evaluation: 11:00 - Subjective Subjective: Patient seen- in bed had colonoscopy preliminary finding discussed has liver lesion but prostate ca he is waiting for treatment option to be discussed plan for pacemaker discussed with patient by cardio 'good appetite good BM no fever no chest pain ambulates goes to scheduled HD Objective - Vital Signs/Intake and Output Vital Signs (last 24 hours): Temp Pulse Resp BP Pulse Ox 97.9 F 106 H 20 101/57 L 95 06/19/17 15:55 06/19/17 18:00 06/19/17 15:55 06/19/17 15:55 06/19/17 15:55 Intake and Output: 06/19/17 06/19/17 06:59 18:59 Intake Total 4000 Balance 4000 - Medications Medications: Current Medications Amoxicillin (Amoxil 250 Mg Cap) 250 mg PO Q12 [facility] Last Admin: 06/19/17 09:12 Dose: 250 mg Aspirin (Ecotrin) 81 mg PO DAILY [facility] Last Admin: 06/19/17 09:12 Dose: 81 mg Diltiazem HCl (Cardizem) 30 mg PO QID [facility] Last Admin: 06/19/17 17:41 Dose: 30 mg Guaifenesin/Dextromethorphan (Robitussin Dm) 5 ml PO Q4H PRN PRN Reason: Cough Last Admin: 06/17/17 17:41 Dose: 5 ml Heparin Sodium (Porcine) (Heparin) 5,000 units SC Q8 [facility] Last Admin: 06/19/17 13:44 Dose: 5,000 units Insulin Aspart (Novolog) 0 unit SC ACTID [facility] PRN Reason: Protocol Last Admin: 06/19/17 17:41 Dose: 2 unit Insulin Detemir (Levemir) 10 unit SC DAILY [facility] Last Admin: 06/19/17 13:43 Dose: 10 unit Metoprolol Succinate (Toprol Xl) 25 mg PO DAILY [facility] Last Admin: 06/19/17 09:12 Dose: 25 mg Pantoprazole Sodium (Protonix Ec Tab) 40 mg PO DAILY [facility] Last Admin: 06/19/17 09:12 Dose: 40 mg Rosuvastatin Calcium (Crestor) 5 mg PO HS [facility] Last Admin: 06/18/17 21:33 Dose: 5 mg - Labs Labs: 02/08/18 07:03 06/19/17 07:03 PT 11.7 SECONDS (9.7-12.2) 06/19/17 07:03 INR 1.0 06/19/17 07:03 APTT 37 SECONDS (21-34) H 06/13/17 17:07 - Constitutional Appears: Non-toxic - Head Exam Head Exam: ATRAUMATIC, NORMOCEPHALIC - Eye Exam Eye Exam: Normal appearance - ENT Exam ENT Exam: Mucous Membranes Moist - Neck Exam Neck Exam: Full ROM - Respiratory Exam Respiratory Exam: Clear to Ausculation Bilateral, NORMAL BREATHING PATTERN - Cardiovascular Exam Cardiovascular Exam: Irregular Rhythm - GI/Abdominal Exam GI & Abdominal Exam: Normal Bowel Sounds. absent: Tenderness - Extremities Exam Extremities Exam: Full ROM. absent: Joint Swelling, Pedal Edema, Tenderness - Back Exam Back Exam: absent: rash noted, tenderness - Neurological Exam Neurological Exam: Alert, Awake, Normal Gait, Oriented x3 - Psychiatric Exam Psychiatric exam: Normal Affect, Normal Mood - Skin Skin Exam: Intact, Normal Color Assessment and Plan - Assessment and Plan (Free Text) Assessment: Patient with A Fib- poor candidate for further cardiac procedure as discusseed with cardio- but plan for pacemaker Patient with Colon ca , prostate ca., liver lesion - treatment option to be discussed by oncology ESRD on scheduled HD patient has accepted conditon , treatment option to be discussed Patient agreed for subacute accordingly
--- NOTE | 2017-06-19 20:25 | CP.PCM.PN ---
Subjective - Date & Time of Evaluation Date of Evaluation: 06/19/17 Time of Evaluation: 20:11 - Subjective Subjective: The patient is clinically unchanged, poor appetite, no rectal bleeding, results of colonoscopy reviewed, discussed with patient, who is aware of the possibility of metastatic cancer, path still pending. Plan- Metastatic prostate cancer, on PO Xtandi, PSA decreasing slowly, new diagnosis of possible metastatic colon cancer, even though previous liver biopsy has been negative for cancer, because of increasing CEA levels and weight loss( failure to thrive), suspect that the colon cancer is metastatic. At this time , would not recommend surgery, because of multiple comorbidities, no benefit to overall survival for surgery in widely metastatic disease unless bleeding or obstruction present. Have discussed the option of PO Xeloda, patient is willing to consider it. Objective - Vital Signs/Intake and Output Vital Signs (last 24 hours): Temp Pulse Resp BP Pulse Ox 97.9 F 106 H 20 101/57 L 95 06/19/17 15:55 06/19/17 18:00 06/19/17 15:55 06/19/17 15:55 06/19/17 15:55 - Medications Medications: Current Medications Amoxicillin (Amoxil 250 Mg Cap) 250 mg PO Q12 [facility] Last Admin: 06/19/17 09:12 Dose: 250 mg Aspirin (Ecotrin) 81 mg PO DAILY [facility] Last Admin: 06/19/17 09:12 Dose: 81 mg Diltiazem HCl (Cardizem) 30 mg PO QID [facility] Last Admin: 06/19/17 17:41 Dose: 30 mg Guaifenesin/Dextromethorphan (Robitussin Dm) 5 ml PO Q4H PRN PRN Reason: Cough Last Admin: 06/17/17 17:41 Dose: 5 ml Heparin Sodium (Porcine) (Heparin) 5,000 units SC Q8 [facility] Last Admin: 06/19/17 13:44 Dose: 5,000 units Insulin Aspart (Novolog) 0 unit SC ACTID [facility] PRN Reason: Protocol Last Admin: 06/19/17 17:41 Dose: 2 unit Insulin Detemir (Levemir) 10 unit SC DAILY [facility] Last Admin: 06/19/17 13:43 Dose: 10 unit Metoprolol Succinate (Toprol Xl) 25 mg PO DAILY [facility] Last Admin: 06/19/17 09:12 Dose: 25 mg Pantoprazole Sodium (Protonix Ec Tab) 40 mg PO DAILY [facility] Last Admin: 06/19/17 09:12 Dose: 40 mg Rosuvastatin Calcium (Crestor) 5 mg PO HS [facility] Last Admin: 06/18/17 21:33 Dose: 5 mg - Labs Labs: 06/19/17 07:03 06/19/17 07:03 PT 11.7 SECONDS (9.7-12.2) 06/19/17 07:03 INR 1.0 06/19/17 07:03 APTT 37 SECONDS (21-34) H 06/13/17 17:07
[2017-06-20] MEDS: (Novolog) Insulin Aspart, Recombinant 100 u/ml 10 ml vial SC SCH ×3 (07:10→19:44)
[2017-06-20] MEDS: Metoprolol Succinate 25 mg XL Tab PO SCH (09:00)
[2017-06-20] MEDS: Pantoprazole 40 mg EC Tab PO SCH (09:00)
[2017-06-20] MEDS: Insulin Detemir 100 units/ml Vial (Levemir) SC SCH (10:00)
--- NOTE | 2017-06-20 12:52 | CP.PCM.PN ---
Subjective - Date & Time of Evaluation Date of Evaluation: 06/20/17 Time of Evaluation: 12:51 - Subjective Subjective: pt away, getting AICD Colonoscopy- malignant mass, official pathology pending Liver metastases Management per Oncology Objective - Vital Signs/Intake and Output Vital Signs (last 24 hours): Temp Pulse Resp BP Pulse Ox 97.9 F 106 H 20 102/58 L 98 06/20/17 05:55 06/20/17 05:55 06/20/17 05:55 06/20/17 05:55 06/20/17 05:55 - Medications Medications: Current Medications Amoxicillin (Amoxil 250 Mg Cap) 250 mg PO Q12 [facility] Last Admin: 06/20/17 10:00 Dose: Not Given Aspirin (Ecotrin) 81 mg PO DAILY [facility] Last Admin: 06/20/17 10:00 Dose: Not Given Diltiazem HCl (Cardizem) 30 mg PO QID [facility] Last Admin: 06/20/17 10:00 Dose: Not Given Guaifenesin/Dextromethorphan (Robitussin Dm) 5 ml PO Q4H PRN PRN Reason: Cough Last Admin: 06/17/17 17:41 Dose: 5 ml Heparin Sodium (Porcine) (Heparin) 5,000 units SC Q8 [facility] Last Admin: 06/19/17 13:44 Dose: 5,000 units Insulin Aspart (Novolog) 0 unit SC ACTID [facility] PRN Reason: Protocol Last Admin: 06/20/17 12:08 Dose: Not Given Insulin Detemir (Levemir) 10 unit SC DAILY [facility] Last Admin: 06/20/17 10:00 Dose: Not Given Metoprolol Succinate (Toprol Xl) 25 mg PO DAILY [facility] Last Admin: 06/20/17 09:00 Dose: Not Given Pantoprazole Sodium (Protonix Ec Tab) 40 mg PO DAILY [facility] Last Admin: 06/20/17 09:00 Dose: Not Given Rosuvastatin Calcium (Crestor) 5 mg PO HS [facility] Last Admin: 06/19/17 22:35 Dose: 5 mg - Labs Labs: 06/19/17 07:03 06/19/17 07:03 PT 11.7 SECONDS (9.7-12.2) 06/19/17 07:03 INR 1.0 06/19/17 07:03 APTT 37 SECONDS (21-34) H 06/13/17 17:07 Assessment and Plan (1) Abnormal liver enzymes Status: Acute (2) Atrial fibrillation with RVR Status: Acute (3) CHF (congestive heart failure) Status: Acute (4) End stage renal disease Status: Acute (5) Prostate CA Status: Acute (6) Liver mass Status: Acute
--- NOTE | 2017-06-20 13:11 | CP.PCM.PN ---
Subjective - Date & Time of Evaluation Date of Evaluation: 06/20/17 Time of Evaluation: 13:09 - Subjective Subjective: Away for ICD results of colonoscopy- bx done on malignant mass will need to schedule dialysis upon arrival after ICD Objective - Vital Signs/Intake and Output Vital Signs (last 24 hours): Temp Pulse Resp BP Pulse Ox 97.9 F 106 H 20 102/58 L 98 06/20/17 05:55 06/20/17 05:55 06/20/17 05:55 06/20/17 05:55 06/20/17 05:55 - Medications Medications: Current Medications Amoxicillin (Amoxil 250 Mg Cap) 250 mg PO Q12 [facility] Last Admin: 06/20/17 10:00 Dose: Not Given Aspirin (Ecotrin) 81 mg PO DAILY [facility] Last Admin: 06/20/17 10:00 Dose: Not Given Diltiazem HCl (Cardizem) 30 mg PO QID [facility] Last Admin: 06/20/17 10:00 Dose: Not Given Guaifenesin/Dextromethorphan (Robitussin Dm) 5 ml PO Q4H PRN PRN Reason: Cough Last Admin: 06/17/17 17:41 Dose: 5 ml Heparin Sodium (Porcine) (Heparin) 5,000 units SC Q8 [facility] Last Admin: 06/19/17 13:44 Dose: 5,000 units Insulin Aspart (Novolog) 0 unit SC ACTID [facility] PRN Reason: Protocol Last Admin: 06/20/17 12:08 Dose: Not Given Insulin Detemir (Levemir) 10 unit SC DAILY [facility] Last Admin: 06/20/17 10:00 Dose: Not Given Metoprolol Succinate (Toprol Xl) 25 mg PO DAILY [facility] Last Admin: 06/20/17 09:00 Dose: Not Given Pantoprazole Sodium (Protonix Ec Tab) 40 mg PO DAILY [facility] Last Admin: 06/20/17 09:00 Dose: Not Given Rosuvastatin Calcium (Crestor) 5 mg PO HS [facility] Last Admin: 06/19/17 22:35 Dose: 5 mg - Labs Labs: 06/19/17 07:03 06/19/17 07:03 PT 11.7 SECONDS (9.7-12.2) 06/19/17 07:03 INR 1.0 06/19/17 07:03 APTT 37 SECONDS (21-34) H 06/13/17 17:07 Assessment and Plan (1) CKD (chronic kidney disease) stage 5, GFR less than 15 ml/min Status: Acute (2) Paroxysmal atrial fibrillation with rapid ventricular response Status: Acute (3) ESRD (end stage renal disease) Status: Acute (4) Liver metastases Status: Acute (5) Abnormal liver enzymes Status: Acute - Assessment and Plan (Free Text) Plan: dialysis tonight oncology eval post path results
[2017-06-20] MEDS ORDERED: Digoxin 500 mcg/2ml (0.5 mg/2ml) Inj IVP ONE (18:14)
--- NOTE | 2017-06-20 18:17 | CP.PCM.PN ---
Subjective - Date & Time of Evaluation Date of Evaluation: 06/20/17 Time of Evaluation: 04:00 - Subjective Subjective: patient seen , had planned pacemaker implant but was cancelled due to red blood per rectum patient had colonoscopy yesterday with biopsy GI aware patient aware of condition and plan as per oncology patient, accepted condition calmly he wanted to go to [facility] but has other things to do like his housing patient reports ithcy throat makes him cough no fever, no vomitng no SOB Objective - Vital Signs/Intake and Output Vital Signs (last 24 hours): Temp Pulse Resp BP Pulse Ox 97.7 F 113 H 20 110/57 L 100 06/20/17 15:56 06/20/17 15:56 06/20/17 15:56 06/20/17 15:56 06/20/17 15:56 - Medications Medications: Current Medications Amoxicillin (Amoxil 250 Mg Cap) 250 mg PO Q12 [facility] Last Admin: 06/20/17 10:00 Dose: Not Given Aspirin (Ecotrin) 81 mg PO DAILY [facility] Last Admin: 06/20/17 10:00 Dose: Not Given Diltiazem HCl (Cardizem) 30 mg PO QID [facility] Last Admin: 06/20/17 14:03 Dose: Not Given Guaifenesin/Dextromethorphan (Robitussin Dm) 5 ml PO Q4H PRN PRN Reason: Cough Last Admin: 06/17/17 17:41 Dose: 5 ml Heparin Sodium (Porcine) (Heparin) 5,000 units SC Q8 [facility] Last Admin: 06/19/17 13:44 Dose: 5,000 units Insulin Aspart (Novolog) 0 unit SC ACTID [facility] PRN Reason: Protocol Last Admin: 06/20/17 12:08 Dose: Not Given Insulin Detemir (Levemir) 10 unit SC DAILY [facility] Last Admin: 06/20/17 10:00 Dose: Not Given Metoprolol Succinate (Toprol Xl) 25 mg PO DAILY [facility] Last Admin: 06/20/17 09:00 Dose: Not Given Pantoprazole Sodium (Protonix Ec Tab) 40 mg PO DAILY [facility] Last Admin: 06/20/17 09:00 Dose: Not Given Rosuvastatin Calcium (Crestor) 5 mg PO HS [facility] Last Admin: 06/19/17 22:35 Dose: 5 mg - Labs Labs: 06/19/17 07:03 06/19/17 07:03 PT 11.7 SECONDS (9.7-12.2) 06/19/17 07:03 INR 1.0 06/19/17 07:03 APTT 37 SECONDS (21-34) H 06/13/17 17:07 - Constitutional Appears: Non-toxic (but is quiet ), No Acute Distress - Head Exam Head Exam: ATRAUMATIC, NORMOCEPHALIC - Eye Exam Eye Exam: absent: Nystagmus, Periorbital swelling, Periorbital tenderness - ENT Exam ENT Exam: Mucous Membranes Moist - Respiratory Exam Respiratory Exam: Clear to Ausculation Bilateral, NORMAL BREATHING PATTERN - Cardiovascular Exam Cardiovascular Exam: Irregular Rhythm - GI/Abdominal Exam GI & Abdominal Exam: Soft, Normal Bowel Sounds. absent: Distended, Tenderness - Extremities Exam Extremities Exam: Full ROM. absent: Joint Swelling, Pedal Edema, Tenderness - Neurological Exam Neurological Exam: Alert, Awake, Normal Gait, Oriented x3 - Psychiatric Exam Psychiatric exam: Normal Affect, Normal Mood - Skin Skin Exam: Intact, Normal Color Assessment and Plan - Assessment and Plan (Free Text) Assessment: with ESRD -on HD A FIB CAD with cancelled pacemaker plan due toblood per rectal, possibly from yesterday's colonoscopy/biopsy- currently no active bleeding, for further observation, follow up hemoglobin, hold aspirin hold heparin Prostate ca, Colon ca with mets to liver, treatment discussion by oncologist , agreed to treatment presentation 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
[2017-06-20 19:26] LABS: BASO # 0.1 K/uL (0.0-0.2); BASO % 0.8 % (0.0-2.0); EOS # 0.1 K/uL (0.0-0.7); HEMOGLOBIN 10.9 g/dL (12.0-18.0); LYMPH # 0.6 K/uL (1.0-4.3); LYMPH % 8.7 % (20.0-40.0); MEAN CELL VOLUME 87.5 fL (80.0-94.0); MEAN CORPUSCULAR HEMOGLOBIN 28.5 pg (27.0-31.0); MEAN CORPUSCULAR HGB CONC 32.5 g/dL (33.0-37.0); MEAN PLATELET VOLUME 9.8 fL (7.2-11.7); MONO % 13.9 % (0.0-10.0); NEUT # 5.3 K/uL (1.8-7.0); NEUT % 75.6 % (50.0-75.0); PLATELET COUNT 137 K/uL (130-400); RBC 3.85 Mil/uL (4.40-5.90); RED CELL DISTRIBUTION WIDTH 20.3 % (11.5-14.5)
[2017-06-20 20:39] LABS: LYMPHOCYTE 12 % (20-40); MONOCYTE 8 % (0-10); NEUTROPHIL 80 % (50-75); PLATELET ESTIMATE SLIGHTLY DECREASED (NORMAL); TOTAL CELLS COUNTED 100
[2017-06-20 20:43] LABS: ANISOCYTOSIS SLIGHT; OVALOCYTES SLIGHT; POIKILOCYTOSIS SLIGHT; TEARDROP CELLS SLIGHT
[2017-06-21 07:14] LABS: BASO % 0.6 % (0.0-2.0); EOS # 0.1 K/uL (0.0-0.7); EOS % 0.9 % (0.0-4.0); HEMOGLOBIN 10.5 g/dL (12.0-18.0); LYMPH # 0.7 K/uL (1.0-4.3); MEAN CELL VOLUME 87.4 fL (80.0-94.0); MEAN CORPUSCULAR HEMOGLOBIN 28.8 pg (27.0-31.0); MEAN PLATELET VOLUME 9.7 fL (7.2-11.7); MONO % 15.5 % (0.0-10.0); NEUT # 4.9 K/uL (1.8-7.0); NRBC % 0.1 % (0.0-2.0); RBC 3.65 Mil/uL (4.40-5.90); RED CELL DISTRIBUTION WIDTH 19.6 % (11.5-14.5); WHITE BLOOD COUNT 6.7 K/uL (4.8-10.8)
[2017-06-21] MEDS: (Novolog) Insulin Aspart, Recombinant 100 u/ml 10 ml vial SC SCH ×2 (08:00→17:36)
[2017-06-21] MEDS: Insulin Detemir 100 units/ml Vial (Levemir) SC SCH (09:48)
[2017-06-21] MEDS: Metoprolol Succinate 25 mg XL Tab PO SCH (09:48)
--- NOTE | 2017-06-21 10:09 | CP.PCM.PN ---
Subjective - Date & Time of Evaluation Date of Evaluation: 06/21/17 Time of Evaluation: 10:06 - Subjective Subjective: pt seen and examined in dialysis unable to get it yesterday due to tachycardia no SOB no chest pain ROS- as per HPI, other than that 10 point ROS negative Objective - Vital Signs/Intake and Output Vital Signs (last 24 hours): Temp Pulse Resp BP Pulse Ox 98.2 F 93 H 18 118/74 97 06/21/17 09:15 06/21/17 09:15 06/21/17 09:15 06/21/17 09:15 06/21/17 09:15 Intake and Output: 06/21/17 06/21/17 06:59 18:59 Intake Total 240 Balance 240 - Medications Medications: Current Medications Amoxicillin (Amoxil 250 Mg Cap) 250 mg PO Q12 [facility] Last Admin: 06/20/17 21:21 Dose: 250 mg Aspirin (Ecotrin) 81 mg PO DAILY [facility] Last Admin: 06/20/17 10:00 Dose: Not Given Diltiazem HCl (Cardizem) 30 mg PO QID [facility] Last Admin: 06/21/17 09:48 Dose: Not Given Guaifenesin/Dextromethorphan (Robitussin Dm) 5 ml PO Q4H PRN PRN Reason: Cough Last Admin: 06/17/17 17:41 Dose: 5 ml Heparin Sodium (Porcine) (Heparin) 5,000 units SC Q8 [facility] Last Admin: 06/19/17 13:44 Dose: 5,000 units Insulin Aspart (Novolog) 0 unit SC ACTID [facility] PRN Reason: Protocol Last Admin: 06/21/17 08:00 Dose: 4 unit Insulin Detemir (Levemir) 10 unit SC DAILY [facility] Last Admin: 06/21/17 09:48 Dose: Not Given Metoprolol Succinate (Toprol Xl) 25 mg PO DAILY [facility] Last Admin: 06/21/17 09:48 Dose: Not Given Pantoprazole Sodium (Protonix Ec Tab) 40 mg PO DAILY [facility] Last Admin: 06/20/17 09:00 Dose: Not Given Rosuvastatin Calcium (Crestor) 5 mg PO HS [facility] Last Admin: 06/20/17 21:21 Dose: 5 mg - Labs Labs: 06/21/17 06:50 06/19/17 07:03 PT 11.7 SECONDS (9.7-12.2) 06/19/17 07:03 INR 1.0 06/19/17 07:03 APTT 37 SECONDS (21-34) H 06/13/17 17:07 - Constitutional Appears: Well, Non-toxic - Head Exam Head Exam: ATRAUMATIC, NORMOCEPHALIC - Eye Exam Eye Exam: EOMI, Normal appearance - ENT Exam ENT Exam: Mucous Membranes Moist - Neck Exam Neck Exam: Full ROM - Respiratory Exam Respiratory Exam: Clear to Ausculation Bilateral. absent: Rhonchi, Wheezes - Cardiovascular Exam Cardiovascular Exam: REGULAR RHYTHM, +S1, +S2 - GI/Abdominal Exam GI & Abdominal Exam: Soft. 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
--- NOTE | 2017-06-21 11:43 | CP.PCM.PN ---
Subjective - Date & Time of Evaluation Date of Evaluation: 06/21/17 Time of Evaluation: 11:40 - Subjective Subjective: COVERING DR BEY/ONDINA No further bleeding reported Seen in dialysis today Objective - Vital Signs/Intake and Output Vital Signs (last 24 hours): Temp Pulse Resp BP Pulse Ox 98.2 F 94 H 18 116/67 97 06/21/17 09:15 06/21/17 10:15 06/21/17 09:15 06/21/17 11:15 06/21/17 09:15 Intake and Output: 06/21/17 06/21/17 06:59 18:59 Intake Total 240 Balance 240 - Medications Medications: Current Medications Amoxicillin (Amoxil 250 Mg Cap) 250 mg PO Q12 [facility] Last Admin: 06/20/17 21:21 Dose: 250 mg Aspirin (Ecotrin) 81 mg PO DAILY [facility] Last Admin: 06/20/17 10:00 Dose: Not Given Diltiazem HCl (Cardizem) 30 mg PO QID [facility] Last Admin: 06/21/17 09:48 Dose: Not Given Guaifenesin/Dextromethorphan (Robitussin Dm) 5 ml PO Q4H PRN PRN Reason: Cough Last Admin: 06/17/17 17:41 Dose: 5 ml Heparin Sodium (Porcine) (Heparin) 5,000 units SC Q8 [facility] Last Admin: 06/19/17 13:44 Dose: 5,000 units Insulin Aspart (Novolog) 0 unit SC ACTID [facility] PRN Reason: Protocol Last Admin: 06/21/17 08:00 Dose: 4 unit Insulin Detemir (Levemir) 10 unit SC DAILY [facility] Last Admin: 06/21/17 09:48 Dose: Not Given Metoprolol Succinate (Toprol Xl) 25 mg PO DAILY [facility] Last Admin: 06/21/17 09:48 Dose: Not Given Pantoprazole Sodium (Protonix Ec Tab) 40 mg PO DAILY [facility] Last Admin: 06/20/17 09:00 Dose: Not Given Rosuvastatin Calcium (Crestor) 5 mg PO HS [facility] Last Admin: 06/20/17 21:21 Dose: 5 mg - Labs Labs: 06/21/17 06:50 06/19/17 07:03 PT 11.7 SECONDS (9.7-12.2) 06/19/17 07:03 INR 1.0 06/19/17 07:03 APTT 37 SECONDS (21-34) H 06/13/17 17:07 - Constitutional Appears: No Acute Distress - Head Exam Head Exam: ATRAUMATIC, NORMOCEPHALIC - Respiratory Exam Respiratory Exam: NORMAL BREATHING PATTERN - Cardiovascular Exam Cardiovascular Exam: REGULAR RHYTHM, +S1 - GI/Abdominal Exam GI & Abdominal Exam: Soft, Normal Bowel Sounds. absent: Tenderness - Extremities Exam Extremities Exam: Normal Inspection Assessment and Plan (1) Hematochezia Assessment & Plan: Bleeding likely from sigmoid tumor and biopsies taken the day before. H/H remain stable. Observe. Status: Acute (2) Neoplasm of sigmoid, malignant Assessment & Plan: Awaiting endoscopic biopsy/pathology results Surgical and Oncology for further management Status: Acute (3) Anemia Assessment & Plan: stable Status: Acute (4) Liver metastases Assessment & Plan: as per Oncology Candidate for CTX following surgical resection of sigmoid mass? Stage IV disease. Status: Acute
--- NOTE | 2017-06-21 17:00 | CP.PCM.PN ---
Subjective - Date & Time of Evaluation Date of Evaluation: 06/21/17 Time of Evaluation: 04:00 - Subjective Subjective: Patient seen- reports less rectal blood now agreed 100 percent to subacute still some cough had dialysis today instead of friday - he was feeling weak after the transport otherwise same Objective - Vital Signs/Intake and Output Vital Signs (last 24 hours): Temp Pulse Resp BP Pulse Ox 97.9 F 78 18 121/64 100 06/21/17 12:45 06/21/17 12:45 06/21/17 12:45 06/21/17 12:45 06/21/17 12:45 Intake and Output: 06/21/17 06/21/17 06:59 18:59 Intake Total 240 Balance 240 - Medications Medications: Current Medications Amoxicillin (Amoxil 250 Mg Cap) 250 mg PO Q12 [facility] Last Admin: 06/20/17 21:21 Dose: 250 mg Aspirin (Ecotrin) 81 mg PO DAILY [facility] Last Admin: 06/20/17 10:00 Dose: Not Given Diltiazem HCl (Cardizem) 30 mg PO QID [facility] Last Admin: 06/21/17 13:33 Dose: Not Given Guaifenesin/Dextromethorphan (Robitussin Dm) 5 ml PO Q4H PRN PRN Reason: Cough Last Admin: 06/17/17 17:41 Dose: 5 ml Heparin Sodium (Porcine) (Heparin) 5,000 units SC Q8 [facility] Last Admin: 06/19/17 13:44 Dose: 5,000 units Insulin Aspart (Novolog) 0 unit SC ACTID [facility] PRN Reason: Protocol Last Admin: 06/21/17 08:00 Dose: 4 unit Insulin Detemir (Levemir) 10 unit SC DAILY [facility] Last Admin: 06/21/17 09:48 Dose: Not Given Metoprolol Succinate (Toprol Xl) 25 mg PO DAILY [facility] Last Admin: 06/21/17 09:48 Dose: Not Given Pantoprazole Sodium (Protonix Ec Tab) 40 mg PO DAILY [facility] Last Admin: 06/20/17 09:00 Dose: Not Given Rosuvastatin Calcium (Crestor) 5 mg PO HS [facility] Last Admin: 06/20/17 21:21 Dose: 5 mg - Labs Labs: 06/21/17 06:50 06/19/17 07:03 PT 11.7 SECONDS (9.7-12.2) 06/19/17 07:03 INR 1.0 06/19/17 07:03 APTT 37 SECONDS (21-34) H 06/13/17 17:07 - Constitutional Appears: Well, Non-toxic (conversant coopoeartive aware of condition) - Head Exam Head Exam: ATRAUMATIC, NORMOCEPHALIC - Eye Exam Eye Exam: Normal appearance - ENT Exam ENT Exam: Mucous Membranes Moist - Respiratory Exam Respiratory Exam: Clear to Ausculation Bilateral, NORMAL BREATHING PATTERN - Cardiovascular Exam Cardiovascular Exam: Irregular Rhythm - GI/Abdominal Exam GI & Abdominal Exam: Soft, Normal Bowel Sounds. absent: Tenderness - Extremities Exam Extremities Exam: Full ROM. absent: Pedal Edema - Neurological Exam Neurological Exam: Alert, Awake, Normal Gait, Oriented x3 - Psychiatric Exam Psychiatric exam: Normal Affect, Normal Mood - Skin Skin Exam: Intact, Normal Color Assessment and Plan - Assessment and Plan (Free Text) Assessment: Patient with paroxysmal A FIB- CAD -on aspirin and heparin-supposed to have pacemaker but canvcelled due to rectal bleeding- to hold aspirin, heparin for now, cardio discussion Blood per rectum post colonoscopy with biopsy- further observation, monitor h/h , gastro aware ESRD on HD Anemia stable Metastatic cancer- colon liver , as per oncology Debility- PT , subacute accordingly further management
[2017-06-21] MEDS ORDERED: Digoxin 500 mcg/2ml (0.5 mg/2ml) Inj IVP ONE (18:11)
--- NOTE | 2017-06-21 18:49 | PCM.RRT ---
<Zak Olea - Last Filed: 06/21/17 19:37> CNP Nurses Assessment - Situation Date: 06/21/17 Time CNP was called: 18:04 CNP Responder Arrival Time:: 18:04 CNP Location:: Med/Surg Room Number: 668a CNP Reason for Call: Tachycardia CNP Called By: RN - IV IV Inserted during CNP?: No IV Fluids Initiated During CNP?: NO - Respiratory CNP Delivery Method: Nasal Cannula @L/min Oxygen Flow Rate: 3 Received Nebulizer Treatments: No Was the Patient Ventilated with Bag/Mask 100% O2?: No Secretions Suctioned?: No Was the Patient Intubated?: No Was the Patient Placed on a Ventilator?: No - Medication Medications Administered During CNP: dIGOXIN 0.25 MG ivp - Diagnostic Test Ordered EKG: Yes Chest X-Ray: Yes CT Scan: No CPR started during CNP?: No - Vital Signs Vital Signs: Rapid Response Vital Sign Blood Pressure 130/72 Pulse Rate 130 Respiratory Rate 18 Temperature 97.8 F Oxygen Saturation 99 - Presto Coma Scale Coma Scale Eye Opening: Spontaneous Coma Scale Motor: Obeys Commands Movement Coma Scale Verbal: Oriented Coma Scale Total: 15 - Time CNP Ended Time CNP Ended: 18:23 - Vital Signs at end of CNP Vital Signs at end of CNP: Rapid Response End Vital Sign Blood Pressure 108/66 Pulse Rate 116 Respiratory Rate 18 Temperature 99.8 F O2 Sat by Pulse Oximetry 100 - Recommendations 5) CNP Level of Care Recommendations: Remain in current setting Notifications: Attending Physician I.Reason for CNP - A) Acute Change in Patient: (Select all that apply): Staff member or family is worried about patient - Neurological Status (Select all that apply): Alert, Responsive, Oriented, Verbal, Follows Commands - Respiratory Oxygen Delivery Method: Nasal Cannula @L/min Oxygen Flow Rate: 3 - Constitutional Appears: No Acute Distress - Head Head Exam: ATRAUMATIC, NORMOCEPHALIC - Eyes Eye Exam: EOMI, Normal appearance - Respiratory Exam Respiratory Exam: Rales (mild crackles), NORMAL BREATHING PATTERN. absent: Rhonchi, Wheezes - Cardiovascular Exam Cardiovascular Exam: Tachycardia, +S1, +S2 - GI/Abdominal Exam GI & Abdominal Exam: Soft, Normal Bowel Sounds. absent: Tenderness - Neurological Exam Neurological Exam: Alert, Awake, Oriented x3 - Extremities Exam Extremities Exam: absent: Pedal Edema Plan - Assessment of Findings&Treatment Plan This is a 76 year old male with PMHx IDDM2, Hypertension, ESRD on HD (M,W,F), CAD s/p CABG, Atrial Fibrillation, Prostate CA S/P surgery, with recurrent hematuria. CNP called for tachycardia. Ten beats of Vtach seen on court monitor. Patient asymptomatic with no complaints. Patient was previously told that he did not need his life vest on while he was in the hospital. Digoxin 0.25 mg IV was given, and patient was told to keep the life vest on. CXR and EKG ordered. On my interpretation the CXR did not show much congestion, considering patient had an episode of dialysis today since he missed his session on Friday. EKG showed A-fib with rate 97 bpm. It was compared to an old EKG in the chart and did not show any changes. <Neal Thompson - Last Filed: 06/22/17 08:05> CNP Nurses Assessment - Vital Signs Vital Signs: Rapid Response Vital Sign Blood Pressure 130/72 Pulse Rate 130 Respiratory Rate 18 Temperature 97.8 F Oxygen Saturation 99 - Vital Signs at end of CNP Vital Signs at end of CNP: Rapid Response End Vital Sign Blood Pressure 108/66 Pulse Rate 116 Respiratory Rate 18 Temperature 99.8 F O2 Sat by Pulse Oximetry 100 Attending/Attestation - Attestation I have personally seen and examined this patient.: Yes I have fully participated in the care of the patient.: Yes I have reviewed all pertinent clinical information, including history, physical exam and plan: Yes Notes (Text): Medical Hospitalist: Patient was seen and examined by me. CNP was called after HR was found to be elevated by staff. We came and saw the patient - he was not in any distress. He is answering and responding appropriately. He denied palpitations, he denied chest pain, denied shortness of breath. On the monitor his HR was fast at 130 to 150 range. Per my discussion with the staff he was at [facility] and due to an AICD /Defibrillator but this could not be placed due to suspect GI bleeding and he was brought back to [facility] - the patient himself also confirmed this. Also there were rthym strips showing what appeared to be at least a 10 beat run of VTAC at least to me. We checked his vital signs - besides the elevated HR - his BP and SpO2 were very stable. So we gave 0.25 of IV digoxin He has a [employer] life vest at bedside. He was NOT wearing it. I asked the patient why and I asked the staff why he was not wearing the vest. They did not really have an answer so I had the patient put the vest on. The battery was not functioning properly however there was a recreational specialist at bedside and I exchanged the battery and it powered on the monitor. He has ESRD and on HD. The last CXRAY was a little while ago so we ordered a new CXRAY in case he was fluid overload but he didn't sound wet on exam. thank you Neal Thompson
[2017-06-21 19:17] VITALS: PULSE 140
[2017-06-22] MEDS: (Novolog) Insulin Aspart, Recombinant 100 u/ml 10 ml vial SC SCH ×3 (08:03→17:19)
[2017-06-22] MEDS: guaiFENesin DM 100 mg-10 mg/5 ml UD PO PRN ×2 (08:05→13:14)
--- NOTE | 2017-06-22 08:18 | CP.PCM.PN ---
Subjective - Date & Time of Evaluation Date of Evaluation: 06/20/17 Time of Evaluation: 06:30 - Subjective Subjective: Patient seen and evaluated Denie chest pain and dyspnea s/p Colonoscopy Physical Examination - Additional Findings Additional findings: - Constitutional Appears: Non-toxic (but looks weak, able to converse, awake ), No Acute Distress - Head Exam Head Exam: ATRAUMATIC, NORMOCEPHALIC - Eye Exam Eye Exam: Normal appearance - ENT Exam ENT Exam: Mucous Membranes Dry - Neck Exam Neck Exam: Full ROM. absent: Tenderness - Respiratory Exam Respiratory Exam: Clear to Ausculation Bilateral, NORMAL BREATHING PATTERN - Cardiovascular Exam Cardiovascular Exam: REGULAR RHYTHM - GI/Abdominal Exam GI & Abdominal Exam: Soft, Normal Bowel Sounds. absent: Tenderness - Extremities Exam Extremities Exam: Full ROM, Normal Inspection. absent: Pedal Edema - Back Exam Back Exam: absent: rash noted - Neurological Exam Neurological Exam: Alert, Awake, Normal Gait, Oriented x3 - Psychiatric Exam Psychiatric exam: Normal Affect, Normal Mood - Skin Skin Exam: Intact, Normal Color Objective - Vital Signs/Intake and Output Vital Signs (last 24 hours): Temp Pulse Resp BP Pulse Ox 98.9 F 89 20 107/46 L 99 06/21/17 23:40 06/22/17 00:00 06/21/17 23:40 06/21/17 23:40 06/21/17 23:40 Intake and Output: 06/22/17 06/22/17 06:59 18:59 Intake Total 250 Balance 250 - Medications Medications: Current Medications Amoxicillin (Amoxil 250 Mg Cap) 250 mg PO Q12 [facility] Last Admin: 06/21/17 21:24 Dose: 250 mg Aspirin (Ecotrin) 81 mg PO DAILY [facility] Last Admin: 06/20/17 10:00 Dose: Not Given Diltiazem HCl (Cardizem) 30 mg PO QID [facility] Last Admin: 06/21/17 21:24 Dose: 30 mg Guaifenesin/Dextromethorphan (Robitussin Dm) 5 ml PO Q4H PRN PRN Reason: Cough Last Admin: 06/22/17 08:05 Dose: 5 ml Heparin Sodium (Porcine) (Heparin) 5,000 units SC Q8 [facility] Last Admin: 06/19/17 13:44 Dose: 5,000 units Insulin Aspart (Novolog) 0 unit SC ACTID [facility] PRN Reason: Protocol Last Admin: 06/22/17 08:03 Dose: 2 unit Insulin Detemir (Levemir) 10 unit SC DAILY [facility] Last Admin: 06/21/17 09:48 Dose: Not Given Metoprolol Succinate (Toprol Xl) 25 mg PO DAILY [facility] Last Admin: 06/21/17 09:48 Dose: Not Given Pantoprazole Sodium (Protonix Ec Tab) 40 mg PO DAILY [facility] Last Admin: 06/20/17 09:00 Dose: Not Given Rosuvastatin Calcium (Crestor) 5 mg PO HS [facility] Last Admin: 06/21/17 21:23 Dose: 5 mg - Labs Labs: 06/21/17 06:50 06/19/17 07:03 PT 11.7 SECONDS (9.7-12.2) 06/19/17 07:03 INR 1.0 06/19/17 07:03 APTT 37 SECONDS (21-34) H 06/13/17 17:07 Assessment and Plan - Assessment and Plan (Free Text) Assessment: Assessment: (1) Atrial fibrillation with RVR Con't cardizem 30mg PO QID Con't metoprolol succinate 25mg PO QD Con't aspirin 81mg PO QD For AICD today Status: Acute (2) CHF (congestive heart failure) Assessment & Plan: Ischemic Cardiomyopathy Patient with lifevest - fitted by Dr Potts CABG 03/2017 - EF of 30% ECHO 06/16/17 shows EF of 25% Con't meds as listed above Con't rosuvastatin 5mg PO HS Status: Acute (3) HTN (hypertension) Assessment & Plan: BP well controlled Con't diltiazem 30mg PO QID Con't metorprolol succinate 25mg PO QD Status: Chronic (4) Liver mass Assessment & Plan: Hx of prostate CA Metasteses suspected GI recommends colonoscopy Colonoscopy is a low-risk procedure thus patient is clear from cardiac standpoint. Status: Acute (5) AICD-Plan Patient to be transferred to [facility] of 06/20/17 for AICD placement, patient will return to [facility] after procedure NPO after midnight except medications Hold evening dose of heparin, resume heparin 2200 06/20/17
--- NOTE | 2017-06-22 08:19 | CP.PCM.PN ---
Subjective - Date & Time of Evaluation Date of Evaluation: 06/21/17 Time of Evaluation: 14:15 - Subjective Subjective: AICD got cancelled due to active bleeding from Biospy site (Colonoscopy) HR not under controll Denies chest pain and dyspnea Will increase Cardizem dose Patient seen and evaluated Denie chest pain and dyspnea s/p Colonoscopy Physical Examination - Additional Findings Additional findings: - Constitutional Appears: Non-toxic (but looks weak, able to converse, awake ), No Acute Distress - Head Exam Head Exam: ATRAUMATIC, NORMOCEPHALIC - Eye Exam Eye Exam: Normal appearance - ENT Exam ENT Exam: Mucous Membranes Dry - Neck Exam Neck Exam: Full ROM. absent: Tenderness - Respiratory Exam Respiratory Exam: Clear to Ausculation Bilateral, NORMAL BREATHING PATTERN - Cardiovascular Exam Cardiovascular Exam: REGULAR RHYTHM - GI/Abdominal Exam GI & Abdominal Exam: Soft, Normal Bowel Sounds. absent: Tenderness - Extremities Exam Extremities Exam: Full ROM, Normal Inspection. absent: Pedal Edema - Back Exam Back Exam: absent: rash noted - Neurological Exam Neurological Exam: Alert, Awake, Normal Gait, Oriented x3 - Psychiatric Exam Psychiatric exam: Normal Affect, Normal Mood - Skin Skin Exam: Intact, Normal Color Objective - Vital Signs/Intake and Output Vital Signs (last 24 hours): Temp Pulse Resp BP Pulse Ox 98.9 F 89 20 107/46 L 99 06/21/17 23:40 06/22/17 00:00 06/21/17 23:40 06/21/17 23:40 06/21/17 23:40 Intake and Output: 06/22/17 06/22/17 06:59 18:59 Intake Total 250 Balance 250 - Medications Medications: Current Medications Amoxicillin (Amoxil 250 Mg Cap) 250 mg PO Q12 [facility] Last Admin: 06/21/17 21:24 Dose: 250 mg Aspirin (Ecotrin) 81 mg PO DAILY [facility] Last Admin: 06/20/17 10:00 Dose: Not Given Diltiazem HCl (Cardizem) 30 mg PO QID [facility] Last Admin: 06/21/17 21:24 Dose: 30 mg Guaifenesin/Dextromethorphan (Robitussin Dm) 5 ml PO Q4H PRN PRN Reason: Cough Last Admin: 06/22/17 08:05 Dose: 5 ml Heparin Sodium (Porcine) (Heparin) 5,000 units SC Q8 [facility] Last Admin: 06/19/17 13:44 Dose: 5,000 units Insulin Aspart (Novolog) 0 unit SC ACTID [facility] PRN Reason: Protocol Last Admin: 06/22/17 08:03 Dose: 2 unit Insulin Detemir (Levemir) 10 unit SC DAILY [facility] Last Admin: 06/21/17 09:48 Dose: Not Given Metoprolol Succinate (Toprol Xl) 25 mg PO DAILY [facility] Last Admin: 06/21/17 09:48 Dose: Not Given Pantoprazole Sodium (Protonix Ec Tab) 40 mg PO DAILY [facility] Last Admin: 06/20/17 09:00 Dose: Not Given Rosuvastatin Calcium (Crestor) 5 mg PO HS [facility] Last Admin: 06/21/17 21:23 Dose: 5 mg - Labs Labs: 06/21/17 06:50 06/19/17 07:03 PT 11.7 SECONDS (9.7-12.2) 06/19/17 07:03 INR 1.0 06/19/17 07:03 APTT 37 SECONDS (21-34) H 06/13/17 17:07 Assessment and Plan - Assessment and Plan (Free Text) Assessment: (1) Atrial fibrillation with RVR Increase cardizem 90 tid Con't aspirin 81mg PO QD For AICD today Status: Acute (2) CHF (congestive heart failure) Assessment & Plan: Ischemic Cardiomyopathy Patient with lifevest - fitted by Dr Potts CABG 03/2017 - EF of 30% ECHO 06/16/17 shows EF of 25% Con't meds as listed above Con't rosuvastatin 5mg PO HS Status: Acute (3) HTN (hypertension) Assessment & Plan: BP well controlled Con't metorprolol succinate 25mg PO QD Status: Chronic (4) Liver mass Assessment & Plan: Hx of prostate CA Metasteses suspected Status: Acute (5) AICD-Plan Will reschedule once GI bleeding resolves
--- NOTE | 2017-06-22 08:41 | RAD ---
HISTORY: Rapid response. check for fluid overload COMPARISON: Chest x-ray performed 06/13/17 TECHNIQUE: Chest, one view. FINDINGS: Numerous external devices obscure evaluation of the underlying parenchyma. LUNGS: Mild interstitial prominence may reflect infection or edema. No focal consolidation. Please note that chest x-ray has limited sensitivity for the detection of pulmonary masses. PLEURA: No significant pleural effusion identified. No definite pneumothorax . CARDIOVASCULAR: Median sternotomy wires. Borderline cardiomegaly. OSSEOUS STRUCTURES: No acute osseous abnormality identified. VISUALIZED UPPER ABDOMEN: Bilateral vascular stents, axillary regions. OTHER FINDINGS: None. IMPRESSION: Mild interstitial prominence may reflect infection or edema. Borderline cardiomegaly.
[2017-06-22] MEDS: Insulin Detemir 100 units/ml Vial (Levemir) SC SCH (10:24)
[2017-06-22] MEDS: Pantoprazole 40 mg EC Tab PO SCH (10:24)
[2017-06-22] MEDS: Metoprolol Succinate 25 mg XL Tab PO SCH (10:24)
--- NOTE | 2017-06-22 12:09 | CP.PCM.PN ---
Subjective - Date & Time of Evaluation Date of Evaluation: 06/22/17 Time of Evaluation: 12:07 - Subjective Subjective: COVERING DR BEY/ONDINA Less bleeding. Rapid response for tachycardia noted earlier today. No c/o. Objective - Vital Signs/Intake and Output Vital Signs (last 24 hours): Temp Pulse Resp BP Pulse Ox 99.9 F H 82 22 124/55 L 98 06/22/17 08:39 06/22/17 10:22 06/22/17 08:39 06/22/17 10:22 06/22/17 08:39 Intake and Output: 06/22/17 06/22/17 06:59 18:59 Intake Total 250 Balance 250 - Medications Medications: Current Medications Amoxicillin (Amoxil 250 Mg Cap) 250 mg PO Q12 [facility] Last Admin: 06/22/17 10:23 Dose: 250 mg Aspirin (Ecotrin) 81 mg PO DAILY [facility] Last Admin: 06/20/17 10:00 Dose: Not Given Diltiazem HCl (Cardizem) 90 mg PO Q8 [facility] Guaifenesin/Dextromethorphan (Robitussin Dm) 5 ml PO Q4H PRN PRN Reason: Cough Last Admin: 06/22/17 08:05 Dose: 5 ml Heparin Sodium (Porcine) (Heparin) 5,000 units SC Q8 [facility] Last Admin: 06/19/17 13:44 Dose: 5,000 units Insulin Aspart (Novolog) 0 unit SC ACTID [facility] PRN Reason: Protocol Last Admin: 06/22/17 08:03 Dose: 2 unit Insulin Detemir (Levemir) 10 unit SC DAILY [facility] Last Admin: 06/22/17 10:24 Dose: 10 unit Metoprolol Succinate (Toprol Xl) 25 mg PO DAILY [facility] Last Admin: 06/22/17 10:24 Dose: 25 mg Pantoprazole Sodium (Protonix Ec Tab) 40 mg PO DAILY [facility] Last Admin: 06/22/17 10:24 Dose: 40 mg Rosuvastatin Calcium (Crestor) 5 mg PO HS [facility] Last Admin: 06/21/17 21:23 Dose: 5 mg - Labs Labs: 06/21/17 06:50 06/19/17 07:03 PT 11.7 SECONDS (9.7-12.2) 06/19/17 07:03 INR 1.0 06/19/17 07:03 APTT 37 SECONDS (21-34) H 06/13/17 17:07 - Constitutional Appears: No Acute Distress - Respiratory Exam Respiratory Exam: NORMAL BREATHING PATTERN - Cardiovascular Exam Cardiovascular Exam: REGULAR RHYTHM - GI/Abdominal Exam GI & Abdominal Exam: Soft, Normal Bowel Sounds. absent: Tenderness Assessment and Plan (1) Hematochezia Assessment & Plan: Likely due to sigmoid tumor s/p biopsies. Repeat CBC. None done today? Status: Acute (2) Neoplasm of sigmoid, malignant Assessment & Plan: Awaiting pathology report, oncology and surgical follow up. Status: Acute (3) Anemia Status: Acute (4) Liver metastases Status: Acute
--- NOTE | 2017-06-22 19:46 | CP.PCM.PN ---
Subjective - Date & Time of Evaluation Date of Evaluation: 06/22/17 Time of Evaluation: 16:30 - Subjective Subjective: Patient seen and evaluated resting comfortably Cardizem increased to 90 Q8 for tachycardia GIB bleeding. Mgt as per GI Objective - Vital Signs/Intake and Output Vital Signs (last 24 hours): Temp Pulse Resp BP Pulse Ox 98.8 F 71 20 107/49 L 96 06/22/17 16:30 06/22/17 16:30 06/22/17 16:30 06/22/17 16:30 06/22/17 16:30 - Medications Medications: Current Medications Amoxicillin (Amoxil 250 Mg Cap) 250 mg PO Q12 [facility] Last Admin: 06/22/17 10:23 Dose: 250 mg Aspirin (Ecotrin) 81 mg PO DAILY [facility] Last Admin: 06/20/17 10:00 Dose: Not Given Diltiazem HCl (Cardizem) 90 mg PO Q8 [facility] Last Admin: 06/22/17 13:11 Dose: 90 mg Guaifenesin/Dextromethorphan (Robitussin Dm) 5 ml PO Q4H PRN PRN Reason: Cough Last Admin: 06/22/17 13:14 Dose: 5 ml Heparin Sodium (Porcine) (Heparin) 5,000 units SC Q8 [facility] Last Admin: 06/19/17 13:44 Dose: 5,000 units Insulin Aspart (Novolog) 0 unit SC ACTID [facility] PRN Reason: Protocol Last Admin: 06/22/17 17:19 Dose: Not Given Insulin Detemir (Levemir) 10 unit SC DAILY [facility] Last Admin: 06/22/17 10:24 Dose: 10 unit Metoprolol Succinate (Toprol Xl) 25 mg PO DAILY [facility] Last Admin: 06/22/17 10:24 Dose: 25 mg Pantoprazole Sodium (Protonix Ec Tab) 40 mg PO DAILY [facility] Last Admin: 06/22/17 10:24 Dose: 40 mg Rosuvastatin Calcium (Crestor) 5 mg PO HS [facility] Last Admin: 06/21/17 21:23 Dose: 5 mg - Labs Labs: 06/21/17 06:50 06/19/17 07:03 PT 11.7 SECONDS (9.7-12.2) 06/19/17 07:03 INR 1.0 06/19/17 07:03 APTT 37 SECONDS (21-34) H 06/13/17 17:07
--- NOTE | 2017-06-22 20:04 | CP.PCM.PN ---
Subjective - Date & Time of Evaluation Date of Evaluation: 06/22/17 Time of Evaluation: 05:00 - Subjective Subjective: Patient seen has no pain has lots gas [passage small amount of water and stool comes with it , not actual diarrhea less blood had rapid response episode yesterday ,during the episode patient was comfortable , and not aware that he has rapid HR, medications adjusted , back on life vest feeding okay off aspirin and heparin Objective - Vital Signs/Intake and Output Vital Signs (last 24 hours): Temp Pulse Resp BP Pulse Ox 98.8 F 71 20 107/49 L 96 06/22/17 16:30 06/22/17 16:30 06/22/17 16:30 06/22/17 16:30 06/22/17 16:30 - Medications Medications: Current Medications Amoxicillin (Amoxil 250 Mg Cap) 250 mg PO Q12 [facility] Last Admin: 06/22/17 10:23 Dose: 250 mg Aspirin (Ecotrin) 81 mg PO DAILY [facility] Last Admin: 06/20/17 10:00 Dose: Not Given Diltiazem HCl (Cardizem) 90 mg PO Q8 [facility] Last Admin: 06/22/17 13:11 Dose: 90 mg Guaifenesin/Dextromethorphan (Robitussin Dm) 5 ml PO Q4H PRN PRN Reason: Cough Last Admin: 06/22/17 13:14 Dose: 5 ml Heparin Sodium (Porcine) (Heparin) 5,000 units SC Q8 [facility] Last Admin: 06/19/17 13:44 Dose: 5,000 units Insulin Aspart (Novolog) 0 unit SC ACTID [facility] PRN Reason: Protocol Last Admin: 06/22/17 17:19 Dose: Not Given Insulin Detemir (Levemir) 10 unit SC DAILY [facility] Last Admin: 06/22/17 10:24 Dose: 10 unit Metoprolol Succinate (Toprol Xl) 25 mg PO DAILY [facility] Last Admin: 06/22/17 10:24 Dose: 25 mg Pantoprazole Sodium (Protonix Ec Tab) 40 mg PO DAILY [facility] Last Admin: 06/22/17 10:24 Dose: 40 mg Rosuvastatin Calcium (Crestor) 5 mg PO HS [facility] Last Admin: 06/21/17 21:23 Dose: 5 mg - Labs Labs: 06/21/17 06:50 06/19/17 07:03 PT 11.7 SECONDS (9.7-12.2) 06/19/17 07:03 INR 1.0 06/19/17 07:03 APTT 37 SECONDS (21-34) H 06/13/17 17:07 - Constitutional Appears: Well, Non-toxic - Head Exam Head Exam: ATRAUMATIC, NORMOCEPHALIC - Eye Exam Eye Exam: Normal appearance. absent: Nystagmus - ENT Exam ENT Exam: Mucous Membranes Moist - Neck Exam Neck Exam: Full ROM, Normal Inspection. absent: Tenderness - Respiratory Exam Respiratory Exam: Clear to Ausculation Bilateral, NORMAL BREATHING PATTERN - Cardiovascular Exam Cardiovascular Exam: Irregular Rhythm - GI/Abdominal Exam GI & Abdominal Exam: Soft, Normal Bowel Sounds. absent: Tenderness - Extremities Exam Extremities Exam: Full ROM, Normal Inspection. absent: Pedal Edema - Neurological Exam Neurological Exam: Alert, Awake, Normal Gait, Oriented x3 - Psychiatric Exam Psychiatric exam: Normal Affect, Normal Mood - Skin Skin Exam: Intact, Normal Color Assessment and Plan - Assessment and Plan (Free Text) Assessment: Patient With ESRD on Scheduled Hd, IDDM , with Paroxysmal Atrial fibrillation with episode of rapid heart rate- medciations adjusted back on life vest, pacemaker plan was cancelled due to rectal bleeding post colonoscopy- now off aspirin and heparin, still with blood per rectum but diminished,- for further monitoring and further management
[2017-06-23] MEDS: guaiFENesin DM 100 mg-10 mg/5 ml UD PO PRN (05:55)
[2017-06-23 07:36] LABS: MEAN CORPUSCULAR HEMOGLOBIN 28.5 pg (27.0-31.0); MEAN CORPUSCULAR HGB CONC 32.8 g/dL (33.0-37.0); MEAN PLATELET VOLUME 10.2 fL (7.2-11.7); RBC 3.52 Mil/uL (4.40-5.90); RED CELL DISTRIBUTION WIDTH 19.4 % (11.5-14.5); WHITE BLOOD COUNT 5.4 K/uL (4.8-10.8)
[2017-06-23 07:44] LABS: ALB/GLOB RATIO 0.9 (1.0-2.1); ALBUMIN 2.5 g/dL (3.5-5.0); CALCIUM 7.7 mg/dl (8.6-10.4)
[2017-06-23] MEDS: (Novolog) Insulin Aspart, Recombinant 100 u/ml 10 ml vial SC SCH ×3 (08:06→17:10)
[2017-06-23] MEDS: Pantoprazole 40 mg EC Tab PO SCH (10:30)
[2017-06-23] MEDS: Insulin Detemir 100 units/ml Vial (Levemir) SC SCH (10:30)
[2017-06-23] MEDS: Metoprolol Succinate 25 mg XL Tab PO SCH (10:31)
--- NOTE | 2017-06-23 11:53 | CP.PCM.PN ---
Subjective - Date & Time of Evaluation Date of Evaluation: 06/23/17 Time of Evaluation: 11:52 - Subjective Subjective: seen and examined on hd, stable. 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 on life vest. still w/ blood in stool, diarrhea no f/c/cp/sob/n/v/dizziness/headache/rash Objective - Vital Signs/Intake and Output Vital Signs (last 24 hours): Temp Pulse Resp BP Pulse Ox 1696 F H 68 16 101/60 96 06/23/17 09:45 06/23/17 09:45 06/23/17 09:05 06/23/17 10:20 06/23/17 07:59 Intake and Output: 06/23/17 06/23/17 06:59 18:59 Intake Total 340 Balance 340 - Medications Medications: Current Medications Amoxicillin (Amoxil 250 Mg Cap) 250 mg PO Q12 [facility] Last Admin: 06/23/17 10:30 Dose: Not Given Aspirin (Ecotrin) 81 mg PO DAILY [facility] Last Admin: 06/20/17 10:00 Dose: Not Given Diltiazem HCl (Cardizem) 90 mg PO Q8 [facility] Last Admin: 06/23/17 05:28 Dose: Not Given Guaifenesin/Dextromethorphan (Robitussin Dm) 5 ml PO Q4H PRN PRN Reason: Cough Last Admin: 06/23/17 05:55 Dose: 5 ml Heparin Sodium (Porcine) (Heparin) 5,000 units SC Q8 [facility] Last Admin: 06/19/17 13:44 Dose: 5,000 units Insulin Aspart (Novolog) 0 unit SC ACTID [facility] PRN Reason: Protocol Last Admin: 06/23/17 11:39 Dose: Not Given Insulin Detemir (Levemir) 10 unit SC DAILY [facility] Last Admin: 06/23/17 10:30 Dose: Not Given Metoprolol Succinate (Toprol Xl) 25 mg PO DAILY [facility] Last Admin: 06/23/17 10:31 Dose: Not Given Pantoprazole Sodium (Protonix Ec Tab) 40 mg PO DAILY [facility] Last Admin: 06/23/17 10:30 Dose: Not Given Rosuvastatin Calcium (Crestor) 5 mg PO HS [facility] Last Admin: 06/22/17 22:20 Dose: 5 mg - Labs Labs: 06/23/17 07:04 06/23/17 07:04 PT 11.7 SECONDS (9.7-12.2) 06/19/17 07:03 INR 1.0 06/19/17 07:03 APTT 37 SECONDS (21-34) H 06/13/17 17:07 - Constitutional Appears: Non-toxic, No Acute Distress, Chronically Ill - Head Exam Head Exam: NORMAL INSPECTION - Eye Exam Eye Exam: Normal appearance, PERRL Pupil Exam: NORMAL ACCOMODATION - ENT Exam ENT Exam: Mucous Membranes Moist, Normal Exam - Neck Exam Neck Exam: Normal Inspection - Respiratory Exam Respiratory Exam: Decreased Breath Sounds, NORMAL BREATHING PATTERN - Cardiovascular Exam Cardiovascular Exam: RRR (life vest) - GI/Abdominal Exam GI & Abdominal Exam: Distended, Soft, Normal Bowel Sounds - Extremities Exam Extremities Exam: Normal Inspection (lue avf) - Neurological Exam Neurological Exam: Alert, Awake, Oriented x3 - Psychiatric Exam Psychiatric exam: Normal Affect, Normal Mood - Skin Skin Exam: Normal Color, Warm Assessment and Plan (1) Atrial fibrillation with RVR Status: Acute (2) CHF (congestive heart failure) Status: Acute (3) Prostate CA Status: Chronic (4) Anemia Status: Acute (5) ESRD (end stage renal disease) on dialysis Status: Chronic - Assessment and Plan (Free Text) Assessment: maintain hd mwf, monitor electrolytes closely cardiology management f/u colon biopsy. oncology management hgb at goal, avoid high dose consuelo
[2017-06-23 13:00] VITALS: O2SAT 99
--- NOTE | 2017-06-23 14:38 | CARD ---
APPROVED REPORT EKG Measurement Heart [id number] <Conclusion> Atrial fibrillation ST & T wave abnormality, consider anterior ischemia Prolonged QT Abnormal ECG
--- NOTE | 2017-06-23 15:45 | CP.PCM.PN ---
Subjective - Date & Time of Evaluation Date of Evaluation: 06/23/17 Time of Evaluation: 15:43 - Subjective Subjective: CC: Metastatic colon cancer Loose stools, blood tinged. has been on Amoxil. need to R/O CDiff +Adenocarcinoma well differentiated colon cancer on pathology, with liver metastases. Discussed with Dr Ware Objective - Vital Signs/Intake and Output Vital Signs (last 24 hours): Temp Pulse Resp BP Pulse Ox 98.9 F 79 20 107/52 L 99 06/23/17 15:39 06/23/17 15:39 06/23/17 15:39 06/23/17 15:39 06/23/17 15:39 Intake and Output: 06/23/17 06/23/17 06:59 18:59 Intake Total 340 Balance 340 - Medications Medications: Current Medications Amoxicillin (Amoxil 250 Mg Cap) 250 mg PO Q12 [facility] Last Admin: 06/23/17 10:30 Dose: Not Given Aspirin (Ecotrin) 81 mg PO DAILY [facility] Last Admin: 06/20/17 10:00 Dose: Not Given Diltiazem HCl (Cardizem) 90 mg PO Q8 [facility] Last Admin: 06/23/17 13:23 Dose: 90 mg Guaifenesin/Dextromethorphan (Robitussin Dm) 5 ml PO Q4H PRN PRN Reason: Cough Last Admin: 06/23/17 05:55 Dose: 5 ml Heparin Sodium (Porcine) (Heparin) 5,000 units SC Q8 [facility] Last Admin: 06/19/17 13:44 Dose: 5,000 units Insulin Aspart (Novolog) 0 unit SC ACTID [facility] PRN Reason: Protocol Last Admin: 06/23/17 11:39 Dose: Not Given Insulin Detemir (Levemir) 10 unit SC DAILY [facility] Last Admin: 06/23/17 10:30 Dose: Not Given Metoprolol Succinate (Toprol Xl) 25 mg PO DAILY [facility] Last Admin: 06/23/17 10:31 Dose: Not Given Pantoprazole Sodium (Protonix Ec Tab) 40 mg PO DAILY [facility] Last Admin: 06/23/17 10:30 Dose: Not Given Rosuvastatin Calcium (Crestor) 5 mg PO HS [facility] Last Admin: 06/22/17 22:20 Dose: 5 mg - Labs Labs: 06/23/17 07:04 06/23/17 07:04 PT 11.7 SECONDS (9.7-12.2) 06/19/17 07:03 INR 1.0 06/19/17 07:03 APTT 37 SECONDS (21-34) H 06/13/17 17:07 - Constitutional Appears: No Acute Distress - Head Exam Head Exam: NORMOCEPHALIC - Neck Exam Neck Exam: Normal Inspection - Respiratory Exam Respiratory Exam: NORMAL BREATHING PATTERN - Cardiovascular Exam Cardiovascular Exam: REGULAR RHYTHM - GI/Abdominal Exam GI & Abdominal Exam: Soft. absent: Tenderness Assessment and Plan (1) Abnormal liver enzymes Assessment & Plan: Improved with management of underlying cardiac disease Status: Acute (2) Atrial fibrillation with RVR Status: Acute (3) CHF (congestive heart failure) Status: Acute (4) End stage renal disease Status: Acute (5) Prostate CA Status: Acute (6) Liver mass Assessment & Plan: Metastatic from Colon cancer Status: Acute (7) Colon cancer metastasized to liver Assessment & Plan: Plan for outpatient palliative chemotherapy, discussed with Oncologist Status: Acute (8) Hematochezia Assessment & Plan: May be from cancer. Recent Amoxil use, + diarrhea- need to look for CDiff Colitis. Amoxil stopped Status: Acute
--- NOTE | 2017-06-23 17:30 | CP.PCM.PN ---
Subjective - Date & Time of Evaluation Date of Evaluation: 06/13/17 Time of Evaluation: 19:00 - Subjective Subjective: The patient is weak, still with some rectal bleeding, diarrhea, able to get OOB to chair. Treatment options discussed with patient. He most likely has metastatic colon cancer to the liver because of his increasing liver lesions with an increasing CEA level. Would hold off on surgical resection for now, unless bleeding persists or he develops signs and symptoms of obstruction. Plan- Start PO Xeloda as soon as possible on discharge. Above discussed with patient Objective - Vital Signs/Intake and Output Vital Signs (last 24 hours): Temp Pulse Resp BP Pulse Ox 98.9 F 79 20 107/52 L 99 06/23/17 15:39 06/23/17 15:39 06/23/17 15:39 06/23/17 15:39 06/23/17 15:39 Intake and Output: 06/23/17 06/23/17 06:59 18:59 Intake Total 340 Balance 340 - Medications Medications: Current Medications Amoxicillin (Amoxil 250 Mg Cap) 250 mg PO Q12 [facility] Last Admin: 06/23/17 10:30 Dose: Not Given Aspirin (Ecotrin) 81 mg PO DAILY [facility] Last Admin: 06/20/17 10:00 Dose: Not Given Diltiazem HCl (Cardizem) 90 mg PO Q8 [facility] Last Admin: 06/23/17 13:23 Dose: 90 mg Guaifenesin/Dextromethorphan (Robitussin Dm) 5 ml PO Q4H PRN PRN Reason: Cough Last Admin: 06/23/17 05:55 Dose: 5 ml Heparin Sodium (Porcine) (Heparin) 5,000 units SC Q8 [facility] Last Admin: 06/19/17 13:44 Dose: 5,000 units Insulin Aspart (Novolog) 0 unit SC ACTID [facility] PRN Reason: Protocol Last Admin: 06/23/17 11:39 Dose: Not Given Insulin Detemir (Levemir) 10 unit SC DAILY [facility] Last Admin: 06/23/17 10:30 Dose: Not Given Metoprolol Succinate (Toprol Xl) 25 mg PO DAILY [facility] Last Admin: 06/23/17 10:31 Dose: Not Given Pantoprazole Sodium (Protonix Ec Tab) 40 mg PO DAILY [facility] Last Admin: 06/23/17 10:30 Dose: Not Given Rosuvastatin Calcium (Crestor) 5 mg PO HS [facility] Last Admin: 06/22/17 22:20 Dose: 5 mg - Labs Labs: 06/23/17 07:04 06/23/17 07:04 PT 11.7 SECONDS (9.7-12.2) 06/19/17 07:03 INR 1.0 06/19/17 07:03 APTT 37 SECONDS (21-34) H 06/13/17 17:07
--- NOTE | 2017-06-23 20:00 | CP.PCM.PN ---
Subjective - Date & Time of Evaluation Date of Evaluation: 06/23/17 Time of Evaluation: 05:00 - Subjective Subjective: PATIENT SEEN , HAVING DINNER STILL SOME COUGH NON PRODUCTIVE. NO FEVER STILL SOME LOOSES STOOL LESS BLOOD . NO ABDOMINAL PAIN DISCUSSED RELATION TO ANTIBIOTIC , C DIF TEST IN PROGRESS GI AND ONCOLOGY NOTES NOTED NO VOMTIONG NO NAUSEA Objective - Vital Signs/Intake and Output Vital Signs (last 24 hours): Temp Pulse Resp BP Pulse Ox 98.9 F 79 20 107/52 L 99 06/23/17 15:39 06/23/17 15:39 06/23/17 15:39 06/23/17 15:39 06/23/17 15:39 - Medications Medications: Current Medications Amoxicillin (Amoxil 250 Mg Cap) 250 mg PO Q12 [facility] Last Admin: 06/23/17 10:30 Dose: Not Given Aspirin (Ecotrin) 81 mg PO DAILY [facility] Last Admin: 06/20/17 10:00 Dose: Not Given Diltiazem HCl (Cardizem) 90 mg PO Q8 [facility] Last Admin: 06/23/17 13:23 Dose: 90 mg Guaifenesin/Dextromethorphan (Robitussin Dm) 5 ml PO Q4H PRN PRN Reason: Cough Last Admin: 06/23/17 05:55 Dose: 5 ml Heparin Sodium (Porcine) (Heparin) 5,000 units SC Q8 [facility] Last Admin: 06/19/17 13:44 Dose: 5,000 units Insulin Aspart (Novolog) 0 unit SC ACTID [facility] PRN Reason: Protocol Last Admin: 06/23/17 17:10 Dose: 6 unit Insulin Detemir (Levemir) 10 unit SC DAILY [facility] Last Admin: 06/23/17 10:30 Dose: Not Given Metoprolol Succinate (Toprol Xl) 25 mg PO DAILY [facility] Last Admin: 06/23/17 10:31 Dose: Not Given Pantoprazole Sodium (Protonix Ec Tab) 40 mg PO DAILY [facility] Last Admin: 06/23/17 10:30 Dose: Not Given Rosuvastatin Calcium (Crestor) 5 mg PO HS [facility] Last Admin: 06/22/17 22:20 Dose: 5 mg - Labs Labs: 06/23/17 07:04 06/23/17 07:04 PT 11.7 SECONDS (9.7-12.2) 06/19/17 07:03 INR 1.0 06/19/17 07:03 APTT 37 SECONDS (21-34) H 06/13/17 17:07 - Constitutional Appears: Non-toxic, No Acute Distress - Head Exam Head Exam: ATRAUMATIC, NORMOCEPHALIC - Eye Exam Eye Exam: Normal appearance - ENT Exam ENT Exam: Mucous Membranes Moist - Neck Exam Neck Exam: Full ROM. absent: Tenderness - Respiratory Exam Respiratory Exam: Clear to Ausculation Bilateral, NORMAL BREATHING PATTERN - Cardiovascular Exam Cardiovascular Exam: Irregular Rhythm - GI/Abdominal Exam GI & Abdominal Exam: Soft, Normal Bowel Sounds. absent: Tenderness - Extremities Exam Extremities Exam: absent: Joint Swelling, Pedal Edema, Tenderness - Neurological Exam Neurological Exam: Alert, Awake, Normal Gait, Oriented x3 - Psychiatric Exam Psychiatric exam: Normal Affect, Normal Mood - Skin Skin Exam: Intact, Normal Color Assessment and Plan - Assessment and Plan (Free Text) Assessment: PATIENT WITH AFIB/COLON CANCER POOR CANDIDATE [facility] BLEEDING DEVELOPED LOOSE STOOL POST ANTIBIOTIC FOR URI - C DIF EVALUATION ONGOING COLON CA METATSTAIC- ONCOLOGY TREATMENT OIPTION DISCUSSED ESRTD ON HD ATRIAL FIBRILLATION , POST RAPID RESPONSE WITH RECENT MED ADJUSTMENT AWAITING C DIF- CONTACT ISOLATION CONTINUE CURRENT CARE
--- NOTE | 2017-06-23 21:44 | CP.PCM.PN ---
Subjective - Date & Time of Evaluation Date of Evaluation: 06/23/17 Time of Evaluation: 18:35 - Subjective Subjective: Patient seen and evaluated denies chest pain and dyspnea Metastatic Colon Ca-Likely not a candidate for AICD Conservative medical management Objective - Vital Signs/Intake and Output Vital Signs (last 24 hours): Temp Pulse Resp BP Pulse Ox 98.9 F 79 20 107/52 L 99 06/23/17 15:39 06/23/17 15:39 06/23/17 15:39 06/23/17 15:39 06/23/17 15:39 - Medications Medications: Current Medications Aspirin (Ecotrin) 81 mg PO DAILY [facility] Last Admin: 06/20/17 10:00 Dose: Not Given Diltiazem HCl (Cardizem) 90 mg PO Q8 [facility] Last Admin: 06/23/17 13:23 Dose: 90 mg Guaifenesin/Dextromethorphan (Robitussin Dm) 5 ml PO Q4H PRN PRN Reason: Cough Last Admin: 06/23/17 05:55 Dose: 5 ml Insulin Aspart (Novolog) 0 unit SC ACTID [facility] PRN Reason: Protocol Last Admin: 06/23/17 17:10 Dose: 6 unit Insulin Detemir (Levemir) 10 unit SC DAILY [facility] Last Admin: 06/23/17 10:30 Dose: Not Given Metoprolol Succinate (Toprol Xl) 25 mg PO DAILY [facility] Last Admin: 06/23/17 10:31 Dose: Not Given Pantoprazole Sodium (Protonix Ec Tab) 40 mg PO DAILY [facility] Last Admin: 06/23/17 10:30 Dose: Not Given Rosuvastatin Calcium (Crestor) 5 mg PO HS [facility] Last Admin: 06/22/17 22:20 Dose: 5 mg - Labs Labs: 06/23/17 07:04 06/23/17 07:04 PT 11.7 SECONDS (9.7-12.2) 06/19/17 07:03 INR 1.0 06/19/17 07:03 APTT 37 SECONDS (21-34) H 06/13/17 17:07
[2017-06-24] MEDS: (Novolog) Insulin Aspart, Recombinant 100 u/ml 10 ml vial SC SCH ×3 (08:06→16:50)
--- NOTE | 2017-06-24 08:21 | CP.PCM.PN ---
Subjective - Date & Time of Evaluation Date of Evaluation: 06/24/17 Time of Evaluation: 08:00 - Subjective Subjective: F/U diarrhea, RB Pt seen with RN. Reports diarrhea better. Less RB. Denies CP, SOB, fever, chills, abdom pain, OCASIO, cough SZ Objective - Vital Signs/Intake and Output Vital Signs (last 24 hours): Temp Pulse Resp BP Pulse Ox 98.1 F 75 20 125/56 L 99 06/24/17 04:05 06/24/17 06:25 06/24/17 04:05 06/24/17 06:25 06/24/17 04:05 Intake and Output: 06/24/17 06/24/17 06:59 18:59 Intake Total 300 Balance 300 - Medications Medications: Current Medications Aspirin (Ecotrin) 81 mg PO DAILY [facility] Last Admin: 06/20/17 10:00 Dose: Not Given Diltiazem HCl (Cardizem) 90 mg PO Q8 [facility] Last Admin: 06/24/17 06:25 Dose: 90 mg Guaifenesin/Dextromethorphan (Robitussin Dm) 5 ml PO Q4H PRN PRN Reason: Cough Last Admin: 06/23/17 05:55 Dose: 5 ml Insulin Aspart (Novolog) 0 unit SC ACTID [facility] PRN Reason: Protocol Last Admin: 06/24/17 08:06 Dose: 2 unit Insulin Detemir (Levemir) 10 unit SC DAILY [facility] Last Admin: 06/23/17 10:30 Dose: Not Given Metoprolol Succinate (Toprol Xl) 25 mg PO DAILY [facility] Last Admin: 06/23/17 10:31 Dose: Not Given Pantoprazole Sodium (Protonix Ec Tab) 40 mg PO DAILY [facility] Last Admin: 06/23/17 10:30 Dose: Not Given Rosuvastatin Calcium (Crestor) 5 mg PO HS [facility] Last Admin: 06/23/17 21:55 Dose: 5 mg - Labs Labs: 06/23/17 07:04 06/23/17 07:04 PT 11.7 SECONDS (9.7-12.2) 06/19/17 07:03 INR 1.0 06/19/17 07:03 APTT 37 SECONDS (21-34) H 06/13/17 17:07 - Constitutional Appears: Well - Neck Exam Neck Exam: absent: Tenderness - Respiratory Exam Respiratory Exam: Clear to Ausculation Bilateral - Cardiovascular Exam Cardiovascular Exam: RRR - GI/Abdominal Exam GI & Abdominal Exam: Soft, Normal Bowel Sounds. absent: Guarding, Tenderness, Mass - Extremities Exam Extremities Exam: absent: Calf Tenderness - Neurological Exam Neurological Exam: Alert, Oriented x3 Assessment and Plan (1) Abnormal liver enzymes Assessment & Plan: Liver mets, mass Status: Acute (2) Liver mass Status: Acute (3) Acute diastolic heart failure Status: Acute (4) Atrial fibrillation Status: Acute (5) CHF (congestive heart failure) Status: Acute (6) Prostate CA Status: Acute (7) Rectal bleeding Assessment & Plan: colon mass. Metastatic disease Status: Acute (8) Diarrhea Assessment & Plan: check c diff. Was on antibiotics Status: Acute
[2017-06-24 08:40] VITALS: RESP 18
[2017-06-24] MEDS: Insulin Detemir 100 units/ml Vial (Levemir) SC SCH (09:10)
[2017-06-24] MEDS: Pantoprazole 40 mg EC Tab PO SCH ×2 (09:10→10:00)
--- NOTE | 2017-06-24 09:15 | CP.PCM.PN ---
Subjective - Date & Time of Evaluation Date of Evaluation: 06/24/17 Time of Evaluation: 09:30 - Subjective Subjective: C.Dif work up-negative as discussison with staff Cardio discussion no further cardio work up due to risk factors - will keep on life vest currently- stable no chest pain eating good, some small looses stool not actual diarrhea discussion of subacute patient and family agreed Objective - Vital Signs/Intake and Output Vital Signs (last 24 hours): Temp Pulse Resp BP Pulse Ox 98.2 F 71 18 93/50 L 99 06/24/17 08:00 06/24/17 08:00 06/24/17 08:00 06/24/17 08:00 06/24/17 08:00 Intake and Output: 06/24/17 06/24/17 06:59 18:59 Intake Total 300 Balance 300 - Medications Medications: Current Medications Aspirin (Ecotrin) 81 mg PO DAILY [facility] Last Admin: 06/20/17 10:00 Dose: Not Given Diltiazem HCl (Cardizem) 90 mg PO Q8 [facility] Last Admin: 06/24/17 06:25 Dose: 90 mg Guaifenesin/Dextromethorphan (Robitussin Dm) 5 ml PO Q4H PRN PRN Reason: Cough Last Admin: 06/23/17 05:55 Dose: 5 ml Insulin Aspart (Novolog) 0 unit SC ACTID [facility] PRN Reason: Protocol Last Admin: 06/24/17 08:06 Dose: 2 unit Insulin Detemir (Levemir) 10 unit SC DAILY [facility] Last Admin: 06/24/17 09:10 Dose: 10 unit Metoprolol Succinate (Toprol Xl) 25 mg PO DAILY [facility] Last Admin: 06/23/17 10:31 Dose: Not Given Pantoprazole Sodium (Protonix Ec Tab) 40 mg PO DAILY [facility] Last Admin: 06/24/17 09:10 Dose: 40 mg Rosuvastatin Calcium (Crestor) 5 mg PO HS [facility] Last Admin: 06/23/17 21:55 Dose: 5 mg - Labs Labs: 06/23/17 07:04 06/23/17 07:04 PT 11.7 SECONDS (9.7-12.2) 06/19/17 07:03 INR 1.0 06/19/17 07:03 APTT 37 SECONDS (21-34) H 06/13/17 17:07 - Constitutional Appears: Non-toxic - Head Exam Head Exam: ATRAUMATIC, NORMOCEPHALIC - Eye Exam Eye Exam: Normal appearance. absent: Nystagmus - ENT Exam ENT Exam: Mucous Membranes Moist - Neck Exam Neck Exam: Full ROM. absent: Tenderness - Respiratory Exam Respiratory Exam: Clear to Ausculation Bilateral, NORMAL BREATHING PATTERN - Cardiovascular Exam Cardiovascular Exam: Irregular Rhythm - GI/Abdominal Exam GI & Abdominal Exam: Soft, Normal Bowel Sounds. absent: Tenderness - Extremities Exam Extremities Exam: Full ROM, Normal Inspection. absent: Pedal Edema - Back Exam Back Exam: Full ROM - Neurological Exam Neurological Exam: Alert, Awake, Normal Gait, Oriented x3 - Psychiatric Exam Psychiatric exam: Normal Affect, Normal Mood - Skin Skin Exam: Intact, Normal Color Assessment and Plan - Assessment and Plan (Free Text) Assessment: Patient with multiple medicalproblems CAD AFIB no further cardio procedure due to risks IDDM continue to monitor and adjust medications accordingly Chronic anemia stable Colon ca metastatic- treatment as per oncology ESRD as with scheduled HD Debility to subacute
[2017-06-24] MEDS: Metoprolol Succinate 25 mg XL Tab PO SCH (09:45)
--- NOTE | 2017-06-24 10:26 | CP.PCM.PN ---
Subjective - Date & Time of Evaluation Date of Evaluation: 06/24/17 Time of Evaluation: 10:24 - Subjective Subjective: new diagnosis of metastatic colon cancer, mets to liver per cards no aicd hd yesterday unremarkable, tolerated well family at bedside, questions answered no n/v/cp/sob/f/c/dizziness/cough/pedraza +diarrhea Objective - Vital Signs/Intake and Output Vital Signs (last 24 hours): Temp Pulse Resp BP Pulse Ox 98.2 F 71 18 100/55 L 99 06/24/17 08:00 06/24/17 08:00 06/24/17 08:00 06/24/17 09:40 06/24/17 08:00 Intake and Output: 06/24/17 06/24/17 06:59 18:59 Intake Total 300 Balance 300 - Medications Medications: Current Medications Aspirin (Ecotrin) 81 mg PO DAILY [facility] Last Admin: 06/20/17 10:00 Dose: Not Given Diltiazem HCl (Cardizem) 90 mg PO Q8 [facility] Last Admin: 06/24/17 06:25 Dose: 90 mg Guaifenesin/Dextromethorphan (Robitussin Dm) 5 ml PO Q4H PRN PRN Reason: Cough Last Admin: 06/23/17 05:55 Dose: 5 ml Insulin Aspart (Novolog) 0 unit SC ACTID [facility] PRN Reason: Protocol Last Admin: 06/24/17 08:06 Dose: 2 unit Insulin Detemir (Levemir) 10 unit SC DAILY [facility] Last Admin: 06/24/17 09:10 Dose: 10 unit Metoprolol Succinate (Toprol Xl) 25 mg PO DAILY [facility] Last Admin: 06/24/17 09:45 Dose: Not Given Pantoprazole Sodium (Protonix Ec Tab) 40 mg PO DAILY [facility] Last Admin: 06/24/17 09:10 Dose: 40 mg Rosuvastatin Calcium (Crestor) 5 mg PO HS [facility] Last Admin: 06/23/17 21:55 Dose: 5 mg - Labs Labs: 06/23/17 07:04 06/23/17 07:04 PT 11.7 SECONDS (9.7-12.2) 06/19/17 07:03 INR 1.0 06/19/17 07:03 APTT 37 SECONDS (21-34) H 06/13/17 17:07 - Constitutional Appears: Non-toxic, No Acute Distress, Chronically Ill - Head Exam Head Exam: NORMAL INSPECTION - Eye Exam Eye Exam: Normal appearance, PERRL - ENT Exam ENT Exam: Mucous Membranes Moist, Normal Exam - Neck Exam Neck Exam: Normal Inspection - Respiratory Exam Respiratory Exam: Clear to Ausculation Bilateral, NORMAL BREATHING PATTERN - Cardiovascular Exam Cardiovascular Exam: REGULAR RHYTHM, RRR - GI/Abdominal Exam GI & Abdominal Exam: Distended, Soft, Normal Bowel Sounds - Extremities Exam Extremities Exam: Normal Inspection, Pedal Edema (lue avf) - Neurological Exam Neurological Exam: Alert, Awake - Skin Skin Exam: Normal Color, Warm Assessment and Plan (1) Atrial fibrillation with RVR Status: Acute (2) CHF (congestive heart failure) Status: Acute (3) Prostate CA Status: Chronic (4) Anemia Status: Acute (5) ESRD (end stage renal disease) on dialysis Status: Chronic - Assessment and Plan (Free Text) Assessment: maintain hd mwf avoid high dose consuelo, monitor hgb oncology management ? dc metoprolol. on cardizem
--- NOTE | 2017-06-24 15:25 | PCM.HF ---
Heart Failure Core Measure - Heart Failure Ejection Fraction: Less Than 40 % CLAUDE Inhibitor Prescribed: No Contraindication/Reason for not providing: ESRD Beta-Saira Prescribed: Metoprolol Succinate Angiotensin II Receptor Saira Prescribed: No Contraindication/Reason for not providing: ESRD AnticoagulationTherapy for Atrial Fibrillation/Atrialflutter: No Contraindication/Reason for not providing: HX OF GI BLEED Aldosterone Antagonist Prescribed: No Contraindication/Reason for not providing: ESRD/ RISK FOR HYPERKALEMIA Hydralazine Nitrate Prescribed: No Contraindication/Reason for not providing: ON CARDUZEM FOR RATE CONTROLL Implantable Cardioverter Defibrillator Therapy: No Contraindication/Reason for not providing: VEST Cardiac Resynchronization Therapy Prescribed: No Contraindication/Reason for not providing: ON LIFE VEST / NOT A CANDIDATE PER [facility] - Follow up Will be discharged to: [facility]) Follow Up Date (must be within 7 days from discharge): 06/27/17 Follow Up Time: 09:00
[2017-06-24 15:26] VITALS: TEMP 98.3
[2017-06-24 16:12] VITALS: BP 116/51; PULSE 77
--- NOTE | 2017-06-24 17:23 | CP.PCM.DIS ---
Provider - Provider Date of Admission: 06/13/17 18:47 Attending physician: Karissa Alvarez MD Time Spent in preparation of Discharge (in minutes): 30 Hospital Course - Lab Results Lab Results: Most Recent Lab Values WBC 5.4 K/uL (4.8-10.8) 06/23/17 07:04 RBC 3.52 Mil/uL (4.40-5.90) L 06/23/17 07:04 Hgb 10.0 g/dL (12.0-18.0) L 06/23/17 07:04 Hct 30.6 % (35.0-51.0) L 06/23/17 07:04 MCV 87.0 fL (80.0-94.0) 06/23/17 07:04 MCH 28.5 pg (27.0-31.0) 06/23/17 07:04 MCHC 32.8 g/dL (33.0-37.0) L 06/23/17 07:04 RDW 19.4 % (11.5-14.5) H 06/23/17 07:04 Plt Count 115 K/uL (130-400) L 06/23/17 07:04 MPV 10.2 fL (7.2-11.7) 06/23/17 07:04 Neut % (Auto) 73.0 % (50.0-75.0) 06/21/17 06:50 Lymph % (Auto) 10.0 % (20.0-40.0) L 06/21/17 06:50 [place] % (Auto) 15.5 % (0.0-10.0) H 06/21/17 06:50 Eos % (Auto) 0.9 % (0.0-4.0) 06/21/17 06:50 Baso % (Auto) 0.6 % (0.0-2.0) 06/21/17 06:50 Neut # (Auto) 4.9 K/uL (1.8-7.0) 06/21/17 06:50 Lymph # (Auto) 0.7 K/uL (1.0-4.3) L 06/21/17 06:50 [place] # (Auto) 1.0 K/uL (0.0-0.8) H 02/10/18 06:50 Eos # (Auto) 0.1 K/uL (0.0-0.7) 06/21/17 06:50 Baso # (Auto) 0.0 K/uL (0.0-0.2) 06/21/17 06:50 Neutrophils % (Manual) 80 % (50-75) H 06/20/17 19:19 Lymphocytes % (Manual) 12 % (20-40) L 06/20/17 19:19 Monocytes % (Manual) 8 % (0-10) 06/20/17 19:19 Platelet Estimate Slightly decreased (NORMAL) L 06/20/17 19:19 Poikilocytosis (manual Slight 06/20/17 19:19 Anisocytosis (manual) Slight 06/20/17 19:19 Tear Drop Cells Slight 06/20/17 19:19 Ovalocytes Slight 06/20/17 19:19 PT 11.7 SECONDS (9.7-12.2) 06/19/17 07:03 INR 1.0 06/19/17 07:03 APTT 37 SECONDS (21-34) H 06/13/17 17:07 Plt Function Assay 84 K/uL 06/19/17 07:03 Sodium 131 mmol/L (132-148) L 06/23/17 07:04 Potassium 3.9 mmol/L (3.6-5.2) 06/23/17 07:04 Chloride 94 mmol/L (98-107) L 06/23/17 07:04 Carbon Dioxide 26 mmol/L (22-30) 06/23/17 07:04 Anion Gap 15 (10-20) 06/23/17 07:04 BUN 50 mg/dL (9-20) H 06/23/17 07:04 Creatinine 4.9 mg/dL (0.8-1.5) H 06/23/17 07:04 Est GFR ( Amer) 14 06/23/17 07:04 Est GFR (Non-Af Amer) 12 06/23/17 07:04 POC Glucose (mg/dL) 139 mg/dL (65-110) H 06/24/17 16:28 Random Glucose 108 mg/dL (75-110) 06/23/17 07:04 Lactic Acid 3.2 mmol/L (0.7-2.1) H 02/02/18 18:43 Calcium 7.7 mg/dl (8.6-10.4) L 06/23/17 07:04 Total Bilirubin 1.0 mg/dL (0.2-1.3) 06/23/17 07:04 Direct Bilirubin 1.1 mg/dL (0.0-0.4) H 06/16/17 06:56 AST 50 U/L (17-59) 06/23/17 07:04 ALT 50 U/L (21-72) 06/23/17 07:04 Alkaline Phosphatase 72 U/L (38-126) 06/23/17 07:04 Total Creatine Kinase 25 U/L (55-170) L 06/15/17 08:43 CK-MB (Mass) 0.75 ng/mL (0.0-3.38) 06/15/17 08:43 Troponin I 1.0500 ng/mL (0.00-0.120) H* 06/15/17 08:43 Total Protein 5.5 g/dL (6.3-8.3) L 06/23/17 07:04 Albumin 2.5 g/dL (3.5-5.0) L 06/23/17 07:04 Globulin 3.0 gm/dL (2.2-3.9) 06/23/17 07:04 Albumin/Globulin Ratio 0.9 (1.0-2.1) L 06/23/17 07:04 Alpha Fetoprotein 1.9 ng/mL (0.0-7.5) 06/16/17 06:56 Carcinoembryonic Ag 116.0 ng/mL (0-3.0) H 06/16/17 06:56 CA 19-9 Antigen 41.5 U/mL (0-37) H 06/16/17 06:56 Prostate Specific Ag 6.70 ng/mL (0.00-4.0) H 06/17/17 07:07 C. difficile Ag & Toxin Negative (NEGATIVE) 06/23/17 15:48 Hepatitis A IgM Ab Negative (NEGATIVE) 06/15/17 08:43 Hep Bs Antigen Negative (NEGATIVE) 06/15/17 08:43 Hep B Core IgM Ab Negative (NEGATIVE) 06/15/17 08:43 Hepatitis C Antibody Negative (NEGATIVE) 06/15/17 08:43 Influenza Typ A,B (EIA) Negative for flu a/b (NEGATIVE) 06/13/17 18:33 - Hospital Course Hospital Course: admitted for [place] fib- medication adjusted tried pacemaker bur was cancelled due to rectal bleeding patient had colonoscopy showed colon ca . liver lesion along with history of prostate ca, seen and advised treatment by oncology, patient has accepted and sent to subacute for debility Discharge Exam - Head Exam Head Exam: NORMAL INSPECTION - Eye Exam Eye Exam: Normal appearance. absent: Nystagmus - ENT Exam ENT Exam: Mucous Membranes Moist - Neck Exam Neck exam: Full Rom - Respiratory Exam Respiratory Exam: Clear to PA & Lateral, NORMAL BREATHING PATTERN - Cardiovascular Exam Cardiovascular Exam: Irregular Rhythm - GI/Abdominal Exam GI & Abdominal Exam: Normal Bowel Sounds - Extremities Exam Extremities exam: full ROM, normal inspection - Back Exam Back exam: absent: tenderness - Neurological Exam Neurological exam: Alert, Normal Gait, Oriented x3 - Psychiatric Exam Psychiatric exam: Normal Affect, Normal Mood - Skin Skin Exam: Intact, Normal Color Discharge Plan - Follow Up Plan Condition: GOOD Disposition: REHAB FACILITY/REHAB UNIT Instructions: Heart Failure (DC), Atrial Fibrillation (DC), Chest Pain (DC), Colonoscopy (DC), Dialysis Diet (DC), End Stage Kidney Disease (DC) Additional Instructions: Please admit patient under Dr. Esteban pleitez service - Call Dr. Pleitez upon patient arrival to [facility] facility Continue HD as scheduled continue medication as per med. rec Please repeat cbc on friday and q weekly Referrals: Esteban Pleitez MD [Staff Provider] -
== END 2017-06-24 17:09 | DRG 374 ==
LOC: C.ER 16:29 → C.9E 18:47 → C.6T 20:52
PROVIDERS: ADMIT Internal Medicine; ATTEND Internal Medicine
PROC: 5A1D70Z Performance of Urinary Filtration, Intermittent, Less than 6 Hours Per Day (ICD-10-PCS; 2017-06-16)
PROC: 5A1D70Z Performance of Urinary Filtration, Intermittent, Less than 6 Hours Per Day (ICD-10-PCS; 2017-06-18)
PROC: 0DBN8ZX Excision of Sigmoid Colon, Via Natural or Artificial Opening Endoscopic, Diagnostic (ICD-10-PCS; principal; 2017-06-19 07:30)
PROC: 5A1D70Z Performance of Urinary Filtration, Intermittent, Less than 6 Hours Per Day (ICD-10-PCS; 2017-06-21)
PROC: 5A1D70Z Performance of Urinary Filtration, Intermittent, Less than 6 Hours Per Day (ICD-10-PCS; 2017-06-23)
DX: C19 Malignant neoplasm of rectosigmoid junction (principal); I50.31 Acute diastolic (congestive) heart failure; I13.2 Hypertensive heart and chronic kidney disease with heart failure and with stage 5 chronic kidney disease, or end stage renal disease; I48.0 Paroxysmal atrial fibrillation; N18.6 End stage renal disease; E11.65 Type 2 diabetes mellitus with hyperglycemia; J43.9 Emphysema, unspecified; C78.7 Secondary malignant neoplasm of liver and intrahepatic bile duct; E86.0 Dehydration; D64.9 Anemia, unspecified; I25.5 Ischemic cardiomyopathy; I25.10 Atherosclerotic heart disease of native coronary artery without angina pectoris; J06.9 Acute upper respiratory infection, unspecified; Z79.4 Long term (current) use of insulin; Z85.46 Personal history of malignant neoplasm of prostate; Z87.891 Personal history of nicotine dependence; Z99.2 Dependence on renal dialysis; Z68.20 Body mass index [BMI] 20.0-20.9, adult; K64.8 Other hemorrhoids; K57.90 Diverticulosis of intestine, part unspecified, without perforation or abscess without bleeding

== ENCOUNTER 2017-08-11 07:01 | Inpatient (IN) | payer MEDICARE, MEDICAID ==
[2017-08-11 07:01] VITALS: BMI 25.8
[2017-08-11] MEDS ORDERED: Glucagon Recombinant 1 mg Inj ONE (07:09)
[2017-08-11] MEDS ORDERED: Dextrose 50% VIAL Inj (50 ml) IV ONE (07:09)
[2017-08-11] MEDS ORDERED: Dextrose 50% SYRINGE Inj (50 ml) IV STA (07:53)
[2017-08-11 07:59] LABS: BASO % 0.3 % (0.0-2.0); LYMPH # 0.8 K/uL (1.0-4.3); LYMPH % 9.4 % (20.0-40.0); MEAN CORPUSCULAR HEMOGLOBIN 30.3 pg (27.0-31.0); MEAN CORPUSCULAR HGB CONC 33.3 g/dL (33.0-37.0); MONO # 0.4 K/uL (0.0-0.8); MONO % 5.1 % (0.0-10.0); NEUT # 7.3 K/uL (1.8-7.0); NEUT % 85.2 % (50.0-75.0); NRBC % 0.1 % (0.0-2.0); PLATELET COUNT 136 K/uL (130-400); RBC 4.36 Mil/uL (4.40-5.90)
[2017-08-11 08:00] LABS: HEMOGLOBIN 13.2 g/dL (12.0-18.0); WHITE BLOOD COUNT 8.5 K/uL (4.8-10.8)
[2017-08-11 08:01] LABS: MEAN CELL VOLUME 91.1 fL (80.0-94.0)
[2017-08-11 08:24] LABS: ANISOCYTOSIS MODERATE; BANDS 1 % (0-2); LYMPHOCYTE 8 % (20-40); MONOCYTE 4 % (0-10); NEUTROPHIL 87 % (50-75); PLATELET ESTIMATE NORMAL (NORMAL); TOTAL CELLS COUNTED 100
[2017-08-11 08:49] LABS: ALB/GLOB RATIO 0.8 (1.0-2.1); ALBUMIN 4.2 g/dL (3.5-5.0); CALCIUM 9.2 mg/dl (8.6-10.4); TROPONIN I 2.52 ng/mL (0.00-0.120)
--- NOTE | 2017-08-11 09:19 | C.PDOC ---
History Of Present Illness 76 y/o male brought to ER by BLS for hypotension after he was found to have blood sugar level below 30. Patient denies having chest pain, fever, and cough. Patient reports having mild SOB which is resolved with oxygen. Of note, patient has a history of ESRD and he has dialysis today. Chief Complaint (Nursing): Shortness Of Breath History Per: Patient History/Exam Limitations: no limitations Onset/Duration Of Symptoms: Hrs Current Symptoms Are (Timing): Still Present Severity: Moderate Associated Symptoms: denies: Fever, Chills, Chest Pain Past Medical History Reviewed: Historical Data, Nursing Documentation, Vital Signs Vital Signs: Last Vital Signs Temp 99.4 F 08/11/17 15:30 Pulse 78 08/11/17 17:30 Resp 18 08/11/17 17:30 BP 156/81 H 08/11/17 17:30 Pulse Ox 95 08/11/17 17:30 - Medical History PMH: Anemia, Asthma, Atrial Fibrillation, Cardia Arrhythmia, CHF, COPD, Diabetes , HTN, Hypercholesterolemia, Hyperlipidemia, Malignancy (Prostate), End Stage Renal Disease (DIALYSIS 3X WEEK), Chronic Kidney Disease Surgical History: CABG (QUADRUPLE BYPASS in 2005 at [facility].) - [facility] Procedures (06/13/17) BYPASS LEFT BRACHIAL ARTERY TO UPPER ARM VEIN, OPEN APPROACH (06/09/15) EXCISION OF SIGMOID COLON, ENDO, DIAGN (06/13/17) FLUOROSCOPY OF L INT MAMM GRAFT USING L OSM CONTRAST (03/20/17) FLUOROSCOPY OF LEFT HEART USING LOW OSMOLAR CONTRAST (03/20/17) FLUOROSCOPY OF MULT COR ART USING L OSM CONTRAST (03/20/17) FLUOROSCOPY OF OTHER BYPASS GRAFT USING LOW OSMOLAR CONTRAST (03/20/17) FLUOROSCOPY OF SING COR A GRAFT USING L OSM CONTRAST (03/20/17) INSERTION OF INFUSION DEV INTO SUP VENA CAVA, PERC APPROACH (06/09/15) MEASURE OF CARDIAC SAMPL & PRESSURE, L HEART, PERC APPROACH (03/20/17) PERFORMANCE OF URINARY FILTRATION, MULTIPLE (01/23/16) PERFORMANCE OF URINARY FILTRATION, SINGLE (08/15/15) ULTRASONOGRAPHY OF HEART WITH AORTA, TRANSESOPHAGEAL (01/23/16) Family History: States: No Known Family Hx - Social History Hx Tobacco Use: No Hx Alcohol Use: No Hx Substance Use: No - Immunization History Hx Tetanus Toxoid Vaccination: No Hx Influenza Vaccination: Yes (2016) Hx Pneumococcal Vaccination: No Review Of Systems Except As Marked, All Systems Reviewed And Found Negative. Constitutional: Negative for: Fever, Chills Cardiovascular: Negative for: Chest Pain Respiratory: Negative for: Cough Physical Exam - Physical Exam Appears: Non-toxic, No Acute Distress Skin: Normal Color, Warm Head: Atraumatic, Normacephalic Eye(s): bilateral: Normal Inspection Nose: Normal Oral Mucosa: Moist Neck: Supple Chest: Symmetrical Cardiovascular: Rhythm Irregular (irregularly irregular ) Respiratory: Rales (rales to the mid-level bilaterally), No Rhonchi, No Wheezing Gastrointestinal/Abdominal: Soft, No Tenderness Extremity: No Pedal Edema Neurological/Psych: Oriented x3, Normal Speech ED Course And Treatment - Laboratory Results Result Diagrams: 08/11/17 07:50 08/11/17 07:50 O2 Sat by Pulse Oximetry: 100 (RA) Pulse Ox Interpretation: Normal - Other Rad CXR X-Ray: Interpreted by Me, Viewed By Me Interpretation: Chest x-ray single frontal view. History: Shortness of breath. Comparison: 06/13/2017. Findings: Bilateral axillary stents in place. Multiple overlying battery packs and devices noted. Moderate venous congestion. Cardiomegaly. Small left pleural effusion. Bibasilar airspace opacities. Right infrahilar consolidative changes. Biapical pleural thickening with upper lobe granulomatous changes. Degenerative changes in the shoulders and spine. Impression: Bilateral axillary stents in place. Multiple overlying battery packs and devices noted. Moderate venous congestion. Cardiomegaly. Small left pleural effusion. Bibasilar airspace opacities. Right infrahilar consolidative changes. Biapical pleural thickening with upper lobe granulomatous changes. Degenerative changes in the shoulders and spine. Progress Note: Labs, ECG, and CXR ordered. Labs show elevated Troponin levels. Patient continues to deny having chest pain.Case discussed with Patient's PCP, Dr. Alvarez. Patient has been admitted to Telemetry after Aspirin therapy. , the dixonac operator, will be consulted. Disposition - Disposition Disposition: HOSPITALIZED Disposition Time: 08:50 Condition: FAIR - Clinical Impression Clinical Impression: COPD exacerbation - Scribe Statement The provider has reviewed the documentation as recorded by the Ace Dupree Provider Attestation: All medical record entries made by the Scribe were at my direction and personally dictated by me. I have reviewed the chart and agree that the record accurately reflects my personal performance of the history, physical exam, medical decision making, and the department course for this patient. I have also personally directed, reviewed, and agree with the discharge instructions and disposition.
--- NOTE | 2017-08-11 11:45 | RAD ---
Chest x-ray single frontal view History: Shortness of breath. Comparison: 06/13/2017 Findings: Bilateral axillary stents in place. Multiple overlying battery packs and devices noted. Moderate venous congestion. Cardiomegaly. Small left pleural effusion. Bibasilar airspace opacities. Right infrahilar consolidative changes. Biapical pleural thickening with upper lobe granulomatous changes. Degenerative changes in the shoulders and spine. Impression: Bilateral axillary stents in place. Multiple overlying battery packs and devices noted. Moderate venous congestion. Cardiomegaly. Small left pleural effusion. Bibasilar airspace opacities. Right infrahilar consolidative changes. Biapical pleural thickening with upper lobe granulomatous changes. Degenerative changes in the shoulders and spine.
--- NOTE | 2017-08-11 12:33 | CP.PCM.CON ---
History of Present Illness - History of Present Illness History of Present Illness: History Of Present Illness 76 y/o male brought to ER by BLS for hypotension after he was found to have blood sugar level below 30. Patient denies having chest pain, fever, and cough. Patient reports having mild SOB which is resolved with oxygen. Of note, patient has a history of ESRD and he has dialysis today. Past Medical History ESRD CAD POST CABG DM 2 DIABETIC NEPHROPATHY PAROXYSMAL AFIB DL HTN COPD CARDIOMYOPATHY PROSTATE CA Temp 97.7 F 08/11/17 07:05 Pulse 88 08/11/17 09:26 Resp 20 08/11/17 09:26 BP 102/52 L 08/11/17 09:26 Pulse Ox 100 - Medical History PMH: Anemia, Asthma, Atrial Fibrillation, Cardia Arrhythmia, CHF, COPD, Diabetes , HTN, Hypercholesterolemia, Hyperlipidemia, Malignancy (Prostate), End Stage Renal Disease (DIALYSIS 3X WEEK), Chronic Kidney Disease Surgical History: CABG (QUADRUPLE BYPASS in 2005 at [facility] av GRAFT, PROSTATE RESECTION Review of Systems - Constitutional Constitutional: Lethargy, Weakness - EENT Eyes: absent: As Per HPI, Blind Spots, Blurred Vision, Change in Vision, Decreased Night Vision, Diplopia, Discharge, Dry Eye, Exophthalmos, Floaters, Irritation, Itchy Eyes, Loss of Peripheral Vision, Pain, Photophobia, Requires Corrective Lenses, Sees Flashes, Spots in Vision, Tunnel Vision, Other Visual Disturbances, Loss of Vision, Other Ears: absent: As Per HPI, Decreased Hearing, Ear Discharge, Ear Pain, Tinnitus, Abnormal Hearing, Disequilibrium, Dizziness, Other Nose/Mouth/Throat: absent: As Per HPI, Epistaxis, Nasal Congestion, Nasal Discharge, Nasal Obstruction, Nasal Trauma, Nose Pain, Post Nasal Drip, Sinus Pain, Sinus Pressure, Bleeding Gums, Change in Voice, Dental Pain, Dry Mouth, Dysphagia, Halitosis, Hoarsness, Lip Swelling, Mouth Lesions, Mouth Pain, Odynophagia, Sore Throat, Throat Swelling, Tongue Swelling, Facial Pain, Neck Pain, Neck Mass, Other - Cardiovascular Cardiovascular: Dyspnea on Exertion - Respiratory Respiratory: Cough, Dyspnea on Exertion - Gastrointestinal Gastrointestinal: Bloating, Constipation - Genitourinary Genitourinary: As Per HPI - Musculoskeletal Musculoskeletal: Muscle Cramps, Muscle Weakness - Integumentary Integumentary: absent: As Per HPI, Acne, Alopecia, Bleeding Lesions, Change in Hair, Change in Nails, Change in Pigmentation, Changing Lesions, Dry Skin, Erythema, Furuncle, Hirsutism, Lesions, New Lesions, Non-Healing Lesions, Photosensitivity, Pruritus, Rash, Skin Pain, Skin Ulcer, Sores, Striae, Swelling , Unusual Bruising, Wounds, Jaundice, Other - Neurological Neurological: Weakness Past Patient History - Past Medical History & Family History Past Medical History?: Yes Past Family History: Reviewed and not pertinent - Past Social History Smoking Status: Former Smoker Chewing Tobacco Use: No Cigar Use: No Alcohol: None Drugs: Denies Home Situation {Lives}: With Family - CARDIAC Hx Atrial Fibrillation: Yes Hx Cardia Arrhythmia: Yes Hx Congestive Heart Failure: Yes Hx Hypercholesterolemia: Yes Hx Hypertension: Yes - PULMONARY Hx Asthma: Yes Hx Chronic Obstructive Pulmonary Disease (COPD): Yes - NEUROLOGICAL Hx Neurological Disorder: Yes Hx Dizziness: Yes - HEENT Hx HEENT Problems: Yes Hx Cataracts: Yes (both eyes) - RENAL Hx Chronic Kidney Disease: Yes - ENDOCRINE/METABOLIC Hx Diabetes Mellitus Type 1: Yes - HEMATOLOGICAL/ONCOLOGICAL Hx Anemia: Yes - INTEGUMENTARY Hx Dermatological Problems: No - MUSCULOSKELETAL/RHEUMATOLOGICAL Hx Falls: No - GASTROINTESTINAL Hx Gastrointestinal Disorders: No - GENITOURINARY/GYNECOLOGICAL Hx Genitourinary Disorders: Yes Hx Hematuria: Yes Hx Prostate Cancer: Yes Hx Prostate Problems: Yes Other/Comment: Prostate Sx 10 years ago robotic surgey 2006 - PSYCHIATRIC Hx Substance Use: No - SURGICAL HISTORY Hx Coronary Artery Bypass Graft: Yes (QUADRUPLE BYPASS in 2006 at [facility].) - ANESTHESIA Hx Anesthesia: Yes Hx Anesthesia Reactions: No Hx Malignant Hyperthermia: No Meds Allergies/Adverse Reactions: Allergies Allergy/AdvReac Type Severity Reaction Status Date / Time warfarin sodium Allergy Intermediate RASH Verified 08/11/17 07:15 [From Coumadin] Physical Exam - Constitutional Appears: In Acute Distress, Chronically Ill - Head Exam Head Exam: ATRAUMATIC, NORMAL INSPECTION - Eye Exam Eye Exam: EOMI, Normal appearance - Neck Exam Neck exam: Positive for: Normal Inspection. Negative for: Tenderness - Respiratory Exam Respiratory Exam: Wheezes, Respiratory Distress - Cardiovascular Exam Cardiovascular Exam: Irregular Rhythm, +S1 - GI/Abdominal Exam GI & Abdominal Exam: Soft. absent: Tenderness - Extremities Exam Extremities exam: Positive for: normal inspection. Negative for: tenderness - Neurological Exam Neurological exam: Alert, CN II-XII Intact - Skin Skin Exam: Dry, Warm Results - Vital Signs Recent Vital Signs: Last Vital Signs Temp 98.7 F 08/11/17 11:45 Pulse 102 H 08/11/17 11:45 Resp 18 08/11/17 11:45 BP 104/50 L 08/11/17 11:45 Pulse Ox 97 08/11/17 11:45 - Labs Result Diagrams: 08/11/17 07:50 08/11/17 07:50 Labs: Laboratory Results - last 24 hr 08/11/17 08/11/17 08/11/17 07:39 07:50 07:50 WBC 8.5 D RBC 4.36 L Hgb 13.2 D Hct 39.7 MCV 91.1 D MCH 30.3 MCHC 33.3 RDW 20.0 H Plt Count 136 MPV 10.0 Neut % (Auto) 85.2 H Lymph % (Auto) 9.4 L [place] % (Auto) 5.1 Eos % (Auto) 0.0 Baso % (Auto) 0.3 Neut # (Auto) 7.3 H Lymph # (Auto) 0.8 L [place] # (Auto) 0.4 Eos # (Auto) 0.0 Baso # (Auto) 0.0 Neutrophils % (Manual) 87 H Band Neutrophils % 1 Lymphocytes % (Manual) 8 L Monocytes % (Manual) 4 Platelet Estimate Normal Anisocytosis (manual) Moderate Sodium 142 Potassium 4.7 Chloride 95 L Carbon Dioxide 20 L Anion Gap 32 H BUN 63 H Creatinine 4.7 H Est GFR ( Amer) 15 Est GFR (Non-Af Amer) 12 POC Glucose (mg/dL) 147 H Random Glucose 31 L* D Calcium 9.2 Total Bilirubin 1.7 H AST 329 H D ALT 76 H D Alkaline Phosphatase 160 H D Troponin I 2.5200 H* Total Protein 9.1 H Albumin 4.2 Globulin 4.9 H Albumin/Globulin Ratio 0.8 L 08/11/17 11:37 WBC RBC Hgb Hct MCV MCH MCHC RDW Plt Count MPV Neut % (Auto) Lymph % (Auto) [place] % (Auto) Eos % (Auto) Baso % (Auto) Neut # (Auto) Lymph # (Auto) [place] # (Auto) Eos # (Auto) Baso # (Auto) Neutrophils % (Manual) Band Neutrophils % Lymphocytes % (Manual) Monocytes % (Manual) Platelet Estimate Anisocytosis (manual) Sodium Potassium Chloride Carbon Dioxide Anion Gap BUN Creatinine Est GFR ( Amer) Est GFR (Non-Af Amer) POC Glucose (mg/dL) 260 H Random Glucose Calcium Total Bilirubin AST ALT Alkaline Phosphatase Troponin I Total Protein Albumin Globulin Albumin/Globulin Ratio Assessment & Plan (1) Prostate cancer metastatic to bone Status: Acute (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
[2017-08-11] MEDS ORDERED: ceFAZolin 1 gm in NS 1 GM/100 ML BAG IVPB ONE (13:32)
[2017-08-11] MEDS ORDERED: Lidocaine 2% Inj (20ml) ONE (13:33)
[2017-08-11] MEDS ORDERED: HEPARIN-NS 5,000 UNITS/500 ML 5,000 UNIT/500 ML BAG IV ONE (13:57)
[2017-08-11] MEDS ORDERED: Sodium Chloride 0.9% 500 ML IV ONE (14:01)
[2017-08-11] MEDS ORDERED: Midazolam 2 MG/2 ML VIAL ONE (14:06)
--- NOTE | 2017-08-11 14:26 | CP.PCM.CON ---
History of Present Illness - History of Present Illness History of Present Illness: Vascular surgery consult Dr. Law Patient is a 76y male presenting with nonfunctioning right AVF w/ pmh ESRD gets HD MWF. Patient presented to ED via ambulance from home with shortness of breath x1 night. He was scheduled for dialysis today but his AVF was not functioning today. His last dialysis session was 4 days ago, patient reports that the AVF was working at the time. Today patient presents with dyspnea on exertion and slight cough. Denies fever, chest pain, nausea, vomiting, diarrhea , abdominal pain. Last bowel movement was last night, hard stool, denied blood in stool. PMH- HTN, HLD, DM, prostate CA, afib PSH- quadruple bypass, prostatectomy social- former smoker, former drinker Review of Systems - Review of Systems All systems: reviewed and no additional remarkable complaints except (as per HPI ) Past Patient History - Past Medical History & Family History Past Medical History?: Yes Past Family History: Reviewed and not pertinent - Past Social History Smoking Status: Former Smoker Chewing Tobacco Use: No Cigar Use: No Alcohol: None Drugs: Denies Home Situation {Lives}: With Family - CARDIAC Hx Atrial Fibrillation: Yes Hx Cardia Arrhythmia: Yes Hx Congestive Heart Failure: Yes Hx Hypercholesterolemia: Yes Hx Hypertension: Yes - PULMONARY Hx Asthma: Yes Hx Chronic Obstructive Pulmonary Disease (COPD): Yes - NEUROLOGICAL Hx Neurological Disorder: Yes - HEENT Hx HEENT Problems: Yes Hx Cataracts: Yes (both eyes) - RENAL Hx Chronic Kidney Disease: Yes - ENDOCRINE/METABOLIC Hx Diabetes Mellitus Type 2: Yes - HEMATOLOGICAL/ONCOLOGICAL Hx Anemia: Yes - INTEGUMENTARY Hx Dermatological Problems: No - MUSCULOSKELETAL/RHEUMATOLOGICAL Hx Falls: No - GASTROINTESTINAL Hx Gastrointestinal Disorders: No - GENITOURINARY/GYNECOLOGICAL Hx Genitourinary Disorders: Yes Hx Hematuria: Yes Hx Prostate Cancer: Yes Hx Prostate Problems: Yes Other/Comment: Prostate Sx 10 years ago robotic surgey 2005 - PSYCHIATRIC Hx Substance Use: No - SURGICAL HISTORY Hx Surgeries: Yes Hx Coronary Artery Bypass Graft: Yes (QUADRUPLE BYPASS in 2005 at [facility] - ANESTHESIA Hx Anesthesia: Yes Hx Anesthesia Reactions: No Hx Malignant Hyperthermia: No Meds Allergies/Adverse Reactions: Allergies Allergy/AdvReac Type Severity Reaction Status Date / Time warfarin sodium Allergy Intermediate RASH Verified 08/11/17 07:15 [From Coumadin] Physical Exam - Constitutional Appears: Well - Head Exam Head Exam: ATRAUMATIC, NORMOCEPHALIC - Respiratory Exam Additional comments: dyspnea on exertion - Cardiovascular Exam Cardiovascular Exam: Irregular Rhythm - GI/Abdominal Exam GI & Abdominal Exam: Soft. absent: Distended, Tenderness - Extremities Exam Additional comments: upper extremity- avf without thrill bl, palpable radial pulse bl, warm extremity bl lower extremity- no pedal edema bl, unable to appreciate pedal pulses bl, cool to touch bl, mottling of toes bl. - Neurological Exam Neurological exam: Alert, Oriented x3 Additional comments: normal light touch sensation in distal upper and lower extremities bl. - Skin Skin Exam: Dry, Mottled (all toes bl) Results - Vital Signs Recent Vital Signs: Last Vital Signs Temp 98.7 F 08/11/17 11:45 Pulse 119 H 08/11/17 12:40 Resp 18 08/11/17 11:45 BP 104/50 L 08/11/17 11:45 Pulse Ox 97 08/11/17 11:45 - Labs Result Diagrams: 08/11/17 07:50 08/11/17 07:50 Labs: Laboratory Results - last 24 hr 08/11/17 08/11/17 08/11/17 07:39 07:50 07:50 WBC 8.5 D RBC 4.36 L Hgb 13.2 D Hct 39.7 MCV 91.1 D MCH 30.3 MCHC 33.3 RDW 20.0 H Plt Count 136 MPV 10.0 Neut % (Auto) 85.2 H Lymph % (Auto) 9.4 L [place] % (Auto) 5.1 Eos % (Auto) 0.0 Baso % (Auto) 0.3 Neut # (Auto) 7.3 H Lymph # (Auto) 0.8 L [place] # (Auto) 0.4 Eos # (Auto) 0.0 Baso # (Auto) 0.0 Neutrophils % (Manual) 87 H Band Neutrophils % 1 Lymphocytes % (Manual) 8 L Monocytes % (Manual) 4 Platelet Estimate Normal Anisocytosis (manual) Moderate Sodium 142 Potassium 4.7 Chloride 95 L Carbon Dioxide 20 L Anion Gap 32 H BUN 63 H Creatinine 4.7 H Est GFR ( Amer) 15 Est GFR (Non-Af Amer) 12 POC Glucose (mg/dL) 147 H Random Glucose 31 L* D Calcium 9.2 Total Bilirubin 1.7 H AST 329 H D ALT 76 H D Alkaline Phosphatase 160 H D Troponin I 2.5200 H* Total Protein 9.1 H Albumin 4.2 Globulin 4.9 H Albumin/Globulin Ratio 0.8 L 08/11/17 11:37 WBC RBC Hgb Hct MCV MCH MCHC RDW Plt Count MPV Neut % (Auto) Lymph % (Auto) [place] % (Auto) Eos % (Auto) Baso % (Auto) Neut # (Auto) Lymph # (Auto) [place] # (Auto) Eos # (Auto) Baso # (Auto) Neutrophils % (Manual) Band Neutrophils % Lymphocytes % (Manual) Monocytes % (Manual) Platelet Estimate Anisocytosis (manual) Sodium Potassium Chloride Carbon Dioxide Anion Gap BUN Creatinine Est GFR ( Amer) Est GFR (Non-Af Amer) POC Glucose (mg/dL) 260 H Random Glucose Calcium Total Bilirubin AST ALT Alkaline Phosphatase Troponin I Total Protein Albumin Globulin Albumin/Globulin Ratio Assessment & Plan - Assessment and Plan (Free Text) Assessment: 76y male with malfunctioning right arm AV shunt. Plan: - to OR for permacath insertion today - d/w Dr. Ani Sarmiento, PGY-III
--- NOTE | 2017-08-11 14:41 | PCM.SURG1 ---
Surgeon's Initial Post Op Note - Surgeon's Notes Surgeon: [email or web address] Sourcing Coordinator: 0 Type of Anesthesia: IV Sedation Anesthesia Administered By: scooby Pre-Operative Diagnosis: renal failure,clotted shunt Operative Findings: successful placement of right jugular permacath Post-Operative Diagnosis: same Operation Performed: permacath right jugular with fluoro,ultrasound,and micropuncture Specimen/Specimens Removed: 0 Estimated Blood Loss: EBL {In ML}: 15 Blood Products Given: N/A Drains Used: No Drains Post-Op Condition: Good Date of Surgery/Procedure: 08/11/17 Time of Surgery/Procedure: 14:41
--- NOTE | 2017-08-11 15:12 | CP.PCM.HP ---
History of Present Illness - History of Present Illness History of Present Illness: 76 y.o. male with PMH ESRD on HD Hypertension CHF IDDM2 COPD CAD with history of CABG with persistent elevated TRoponins- but unstable-on life vest Atrial Fibrillation Prostate Ca , Colon ca with mets to liver . Lung? came to ER due to shortness of breath and weakness. Patient was recently discharged from [facility] 2 days ago- , he reports took his BP meds and felt like short f breath, in ER hi s BP wa low and sugar was low, patient pedraza sno fever no cough no no GI complaints . patient was admitted for further evaluation and management PMH as above Surgery CABG fistulas Meds [place] meds cardizem, statin ppi, insulin, toprol cannot place on coumadin due to bleeding - rectalb Alergy Social lives with in apartment Present on Admission - Present on Admission Any Indicators Present on Admission: Yes History of DVT/PE: No History of Uncontrolled Diabetes: Yes Urinary Catheter: No Decubitus Ulcer Present: No Review of Systems - Constitutional Constitutional: Weakness. absent: Fatigue, Fever, Frequent Falls, Weight Loss - EENT Eyes: absent: Other Visual Disturbances Ears: absent: Ear Discharge, Abnormal Hearing Nose/Mouth/Throat: absent: Nasal Obstruction, Dysphagia, Sore Throat - Cardiovascular Cardiovascular: Dyspnea on Exertion. absent: Chest Pain, Chest Pain at Rest, Pedal Edema, Syncope - Respiratory Respiratory: absent: Cough, Wheezing - Gastrointestinal Gastrointestinal: absent: Abdominal Pain, Constipation, Diarrhea, Vomiting - Genitourinary Genitourinary: absent: Difficulty Urinating, Flank Pain, Hematuria - Musculoskeletal Musculoskeletal: absent: Abnormal Gait, Deformity, Muscle Weakness - Integumentary Integumentary: absent: Change in Nails, Skin Ulcer, Sores, Unusual Bruising - Neurological Neurological: absent: Abnormal Gait, Abnormal Hearing, Abnormal Movements, Abnormal Speech, Convulsions, Syncope - Psychiatric Psychiatric: absent: Behavioral Changes, Confusion, Depression - Endocrine Endocrine: absent: Polydipsia, Polyphagia, Polyuria - Hematologic/Lymphatic Hematologic: absent: Easy Bleeding, Easy Bruising Past Patient History - Past Medical History & Family History Past Medical History?: Yes Past Family History: Reviewed and not pertinent - Past Social History Smoking Status: Former Smoker Chewing Tobacco Use: No Cigar Use: No Alcohol: None Drugs: Denies Home Situation {Lives}: With Family - CARDIAC Hx Atrial Fibrillation: Yes Hx Cardia Arrhythmia: Yes Hx Congestive Heart Failure: Yes Hx Hypercholesterolemia: Yes Hx Hypertension: Yes - PULMONARY Hx Asthma: Yes Hx Chronic Obstructive Pulmonary Disease (COPD): Yes - NEUROLOGICAL Hx Neurological Disorder: Yes - HEENT Hx HEENT Problems: Yes Hx Cataracts: Yes (both eyes) - RENAL Hx Chronic Kidney Disease: Yes - ENDOCRINE/METABOLIC Hx Diabetes Mellitus Type 2: Yes - HEMATOLOGICAL/ONCOLOGICAL Hx Anemia: Yes - INTEGUMENTARY Hx Dermatological Problems: No - MUSCULOSKELETAL/RHEUMATOLOGICAL Hx Falls: No - GASTROINTESTINAL Hx Gastrointestinal Disorders: No - GENITOURINARY/GYNECOLOGICAL Hx Genitourinary Disorders: Yes Hx Hematuria: Yes Hx Prostate Cancer: Yes Hx Prostate Problems: Yes Other/Comment: Prostate Sx 10 years ago robotic surgey 2005 - PSYCHIATRIC Hx Substance Use: No - SURGICAL HISTORY Hx Surgeries: Yes Hx Coronary Artery Bypass Graft: Yes (QUADRUPLE BYPASS in 2005 at [facility].) - ANESTHESIA Hx Anesthesia: Yes Hx Anesthesia Reactions: No Hx Malignant Hyperthermia: No Meds Allergies/Adverse Reactions: Allergies Allergy/AdvReac Type Severity Reaction Status Date / Time warfarin sodium Allergy Intermediate RASH Verified 08/11/17 07:15 [From Coumadin] Physical Exam - Constitutional Appears: No Acute Distress (looks weak but is conversant and answers appropriately ) - Head Exam Head Exam: ATRAUMATIC, NORMOCEPHALIC - Eye Exam Eye Exam: Normal appearance. absent: Nystagmus, Periorbital tenderness - ENT Exam ENT Exam: Mucous Membranes Dry - Neck Exam Neck exam: Positive for: Full Rom. Negative for: Tenderness - Respiratory Exam Respiratory Exam: Decreased Breath Sounds, NORMAL BREATHING PATTERN - Cardiovascular Exam Cardiovascular Exam: Irregular Rhythm - GI/Abdominal Exam GI & Abdominal Exam: Normal Bowel Sounds, Soft. absent: Tenderness - Extremities Exam Extremities exam: Positive for: full ROM, normal inspection. Negative for: joint swelling, pedal edema - Back Exam Back exam: FULL ROM. absent: tenderness - Neurological Exam Neurological exam: Alert, Normal Gait, Oriented x3 - Psychiatric Exam Psychiatric exam: Normal Affect, Normal Mood - Skin Skin Exam: Intact, Normal Color Results - Vital Signs Recent Vital Signs: Last Vital Signs Temp 98.7 F 08/11/17 13:05 Pulse 101 H 08/11/17 13:05 Resp 18 08/11/17 13:05 BP 106/59 L 08/11/17 13:05 Pulse Ox 100 08/11/17 14:20 - Labs Result Diagrams: 08/11/17 07:50 08/11/17 07:50 Labs: Laboratory Results - last 24 hr 08/11/17 08/11/17 08/11/17 07:39 07:50 07:50 WBC 8.5 D RBC 4.36 L Hgb 13.2 D Hct 39.7 MCV 91.1 D MCH 30.3 MCHC 33.3 RDW 20.0 H Plt Count 136 MPV 10.0 Neut % (Auto) 85.2 H Lymph % (Auto) 9.4 L [place] % (Auto) 5.1 Eos % (Auto) 0.0 Baso % (Auto) 0.3 Neut # (Auto) 7.3 H Lymph # (Auto) 0.8 L [place] # (Auto) 0.4 Eos # (Auto) 0.0 Baso # (Auto) 0.0 Neutrophils % (Manual) 87 H Band Neutrophils % 1 Lymphocytes % (Manual) 8 L Monocytes % (Manual) 4 Platelet Estimate Normal Anisocytosis (manual) Moderate Sodium 142 Potassium 4.7 Chloride 95 L Carbon Dioxide 20 L Anion Gap 32 H BUN 63 H Creatinine 4.7 H Est GFR ( Amer) 15 Est GFR (Non-Af Amer) 12 POC Glucose (mg/dL) 147 H Random Glucose 31 L* D Calcium 9.2 Total Bilirubin 1.7 H AST 329 H D ALT 76 H D Alkaline Phosphatase 160 H D Troponin I 2.5200 H* Total Protein 9.1 H Albumin 4.2 Globulin 4.9 H Albumin/Globulin Ratio 0.8 L 08/11/17 08/11/17 11:37 14:47 WBC RBC Hgb Hct MCV MCH MCHC RDW Plt Count MPV Neut % (Auto) Lymph % (Auto) [place] % (Auto) Eos % (Auto) Baso % (Auto) Neut # (Auto) Lymph # (Auto) [place] # (Auto) Eos # (Auto) Baso # (Auto) Neutrophils % (Manual) Band Neutrophils % Lymphocytes % (Manual) Monocytes % (Manual) Platelet Estimate Anisocytosis (manual) Sodium Potassium Chloride Carbon Dioxide Anion Gap BUN Creatinine Est GFR ( Amer) Est GFR (Non-Af Amer) POC Glucose (mg/dL) 260 H 189 H Random Glucose Calcium Total Bilirubin AST ALT Alkaline Phosphatase Troponin I Total Protein Albumin Globulin Albumin/Globulin Ratio Assessment & Plan (1) Hypoglycemia Assessment and Plan: possible poor po access with DM mes- will stop DM meds and monitor accucheck Status: Acute (2) CHF (congestive heart failure) Assessment and Plan: fliud retention -mes to be reviewed and adjusted , with ESRD on scheduled HD today Status: Acute (3) Dyspnea on effort Assessment and Plan: from ESRD CHF COPD combination, low BP low sugar - will review and correct Status: Acute (4) 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 Assessment and Plan: with hypoglycemia- will hold DM meds- accucheck monitoring Status: Acute (5) Atrial fibrillation Assessment and Plan: due to low BP- will monitor, cardio consulted Status: Acute (6) End stage renal disease Assessment and Plan: on scheduled HD- renal aware Status: Acute (7) Prostate CA Assessment and Plan: pathaydee with history of prostate ca, colonn ca, liver lesion , was seen by heme oncology last hosp- was offered chemo pills, will review Status: Chronic (8) Elevated troponin level Assessment and Plan: with CAD, with persistent elvated Troponins, unstable conditon, discussion with cardio Status: Acute
--- NOTE | 2017-08-11 16:15 | RAD ---
PROCEDURE: Intraoperative Fluoroscopy. HISTORY: RENAL FAILURE FINDINGS: Fluoroscopic assistance was provided. 27.4 seconds fluoroscopy time utilized during this procedure. Radiation dose = 1.8 mGy Please refer to the operative report from ANDREW Blevins.
--- NOTE | 2017-08-11 16:30 | PCM.RRT ---
[employer] [employer] Nurses Assessment - Situation Date: 08/11/17 Time [employer] [employer] was called: 16:28 [employer] [employer] Responder Arrival Time:: 16:40 [facility] Location:: 3D Dialysis [facility] Reason for Call: Hypotension [employer] [employer] Called By: RN - IV IV Inserted during [employer] [employer]?: No IV Fluids Initiated During [employer] [employer]?: NS 250cc bolus - Respiratory [facility] Delivery Method: Face Mask @% (5) Received Nebulizer Treatments: No Was the Patient Ventilated with Bag/Mask 100% O2?: No Secretions Suctioned?: No Was the Patient Intubated?: No Was the Patient Placed on a Ventilator?: No - Diagnostic Test Ordered EKG: No Chest X-Ray: No CT Scan: No CPR started during [employer] [facility]?: No - Abel Coma Scale Coma Scale Eye Opening: Spontaneous Coma Scale Motor: Obeys Commands Movement Coma Scale Verbal: Oriented Coma Scale Total: 15 - Sepsis Screen Part 1 Sepsis Screen Part 1: Hypotensive I.Reason for [employer] [employer] - A) Acute Change in Patient: (Select all that apply): Acute change in SBP below Subjective: [facility] [employer] called at 16:25 for hypotension in the dialysis center. Initial BP 68/48. Nursing reports dialysis was not started due to low BP. Pt alert, awake, and oriented x 3. He denies chest pain, SOB. Initial sugar was 180. Patient due for HD today, had malfunctioning AV fistula. Patient went to the OR today for permacath insertion. Patient denies headaches, dizziness, cp, sob, abdominal pain. Patient admits history of atrial fibrilation, which is rhythm on EKG strip. Home medications show cardizem but no anti-coagulant. Allergy noted to warfarin. ICU eval was asked by Dr. Law due to hypotension. - Neurological Status (Select all that apply): Alert, Responsive, Oriented, Verbal, Follows Commands - Respiratory Oxygen Delivery Method: Face Mask @% Oxygen Flow Rate: 8 - Constitutional Appears: Non-toxic, Chronically Ill - Head Head Exam: ATRAUMATIC, NORMAL INSPECTION - Eyes Eye Exam: EOMI, Normal appearance. absent: Scleral icterus - Respiratory Exam Respiratory Exam: Clear to Ausculation Bilateral, NORMAL BREATHING PATTERN - Cardiovascular Exam Cardiovascular Exam: Tachycardia, Irregular Rhythm, +S1, +S2 - GI/Abdominal Exam GI & Abdominal Exam: Soft, Normal Bowel Sounds. absent: Tenderness - Neurological Exam Neurological Exam: Alert, Awake, Oriented x3 - Extremities Exam Extremities Exam: Full ROM, Normal Inspection. absent: Pedal Edema Plan - Assessment of Findings&Treatment Plan Hypotension STAT 250cc bolus NS - pt BP improved to 84/48. Change in status - pt accepted to ICU by Dr. Dowell
--- NOTE | 2017-08-11 17:04 | CP.PCM.CON ---
<Sonia Michaud - Last Filed: 08/11/17 18:31> History of Present Illness - History of Present Illness History of Present Illness: ICU consult Note : Patient is a 76 year old male with past medical history of ESRD on HD, CAD s/p CABG, Ischemic cardiomyopathy on Life Vest, Afib not on AC 2/2 history of GI bleed, Diabetes Mellitus, COPD presented to the Hospital for shortness of breath and weakness. [facility] While in the ER patient found to have low blood sugar and elevated troponin. Patient due for HD today, has malfunctioning AV fistula. Patient went to the OR today for permacath insertion. Post-op patient went upstairs for hemodialysis. Before session started, patient was found to be hypotensive with Initial BP 68/48. ICU evaluation was requested. Will admit patient to the ICU for further monitoring. Patient denies headaches, dizziness, cp, palpitations, sob, abdominal pain. 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: Dr Potts Allergies: Warfarin Medical History: ESRD on HD, CAD s/p CABG, Afib not on AC, Diabetes Mellitus, COPD, Prostate cancer Medications: Cardizem 90mg Q8H, Ferrous glucagon 324mg PO TID, Toprol XL 25mg PO daily, Levemir 10 units HS, Crestor 5mg PO HS Surgical History: CABG, Fistula Social History: Former smoker, denies alcohol, drug use; lives with Past Patient History - Past Medical History & Family History Past Medical History?: Yes Past Family History: Reviewed and not pertinent - Past Social History Smoking Status: Former Smoker Chewing Tobacco Use: No Cigar Use: No Alcohol: None Drugs: Denies Home Situation {Lives}: With Family - CARDIAC Hx Atrial Fibrillation: Yes Hx Cardia Arrhythmia: Yes Hx Congestive Heart Failure: Yes Hx Hypercholesterolemia: Yes Hx Hypertension: Yes - PULMONARY Hx Asthma: Yes Hx Chronic Obstructive Pulmonary Disease (COPD): Yes - NEUROLOGICAL Hx Neurological Disorder: Yes - HEENT Hx HEENT Problems: Yes Hx Cataracts: Yes (both eyes) - RENAL Hx Chronic Kidney Disease: Yes - ENDOCRINE/METABOLIC Hx Diabetes Mellitus Type 2: Yes - HEMATOLOGICAL/ONCOLOGICAL Hx Anemia: Yes - INTEGUMENTARY Hx Dermatological Problems: No - MUSCULOSKELETAL/RHEUMATOLOGICAL Hx Falls: No - GASTROINTESTINAL Hx Gastrointestinal Disorders: No - GENITOURINARY/GYNECOLOGICAL Hx Genitourinary Disorders: Yes Hx Hematuria: Yes Hx Prostate Cancer: Yes Hx Prostate Problems: Yes Other/Comment: Prostate Sx 10 years ago robotic surgey 2006 - PSYCHIATRIC Hx Substance Use: No - SURGICAL HISTORY Hx Surgeries: Yes Hx Coronary Artery Bypass Graft: Yes (QUADRUPLE BYPASS in 2006 at [facility] - ANESTHESIA Hx Anesthesia: Yes Hx Anesthesia Reactions: No Hx Malignant Hyperthermia: No Meds Allergies/Adverse Reactions: Allergies Allergy/AdvReac Type Severity Reaction Status Date / Time warfarin sodium Allergy Intermediate RASH Verified 08/11/17 07:15 [From Coumadin] - Medications Medications: Current Medications Pantoprazole Sodium (Protonix Ec Tab) 40 mg PO DAILY CORINA Results - Vital Signs Recent Vital Signs: Last Vital Signs Temp 99.4 F 08/11/17 15:30 Pulse 114 H 08/11/17 15:30 Resp 25 H 08/11/17 15:30 BP 85/54 L 08/11/17 15:30 Pulse Ox 99 08/11/17 15:30 - Labs Result Diagrams: 08/11/17 07:50 08/11/17 07:50 Labs: Laboratory Results - last 24 hr 08/11/17 08/11/17 08/11/17 07:39 07:50 07:50 WBC 8.5 D RBC 4.36 L Hgb 13.2 D Hct 39.7 MCV 91.1 D MCH 30.3 MCHC 33.3 RDW 20.0 H Plt Count 136 MPV 10.0 Neut % (Auto) 85.2 H Lymph % (Auto) 9.4 L [place] % (Auto) 5.1 Eos % (Auto) 0.0 Baso % (Auto) 0.3 Neut # (Auto) 7.3 H Lymph # (Auto) 0.8 L [place] # (Auto) 0.4 Eos # (Auto) 0.0 Baso # (Auto) 0.0 Neutrophils % (Manual) 87 H Band Neutrophils % 1 Lymphocytes % (Manual) 8 L Monocytes % (Manual) 4 Platelet Estimate Normal Anisocytosis (manual) Moderate Sodium 142 Potassium 4.7 Chloride 95 L Carbon Dioxide 20 L Anion Gap 32 H BUN 63 H Creatinine 4.7 H Est GFR ( Amer) 15 Est GFR (Non-Af Amer) 12 POC Glucose (mg/dL) 147 H Random Glucose 31 L* D Calcium 9.2 Total Bilirubin 1.7 H AST 329 H D ALT 76 H D Alkaline Phosphatase 160 H D Troponin I 2.5200 H* Total Protein 9.1 H Albumin 4.2 Globulin 4.9 H Albumin/Globulin Ratio 0.8 L 08/11/17 08/11/17 08/11/17 11:37 14:47 16:24 WBC RBC Hgb Hct MCV MCH MCHC RDW Plt Count MPV Neut % (Auto) Lymph % (Auto) [place] % (Auto) Eos % (Auto) Baso % (Auto) Neut # (Auto) Lymph # (Auto) [place] # (Auto) Eos # (Auto) Baso # (Auto) Neutrophils % (Manual) Band Neutrophils % Lymphocytes % (Manual) Monocytes % (Manual) Platelet Estimate Anisocytosis (manual) Sodium Potassium Chloride Carbon Dioxide Anion Gap BUN Creatinine Est GFR ( Amer) Est GFR (Non-Af Amer) POC Glucose (mg/dL) 260 H 189 H 126 H Random Glucose Calcium Total Bilirubin AST ALT Alkaline Phosphatase Troponin I Total Protein Albumin Globulin Albumin/Globulin Ratio Assessment & Plan - Assessment and Plan (Free Text) Assessment: Patient is a 76 year old male with past medical history of ESRD on HD, CAD s/p CABG, Ischemic cardiomyopathy on Life Vest, Afib not on AC 2/2 history of GI bleed, Diabetes Mellitus, COPD presented to the Hospital for shortness of breath and weakness. Found to be hypotensive s/p permacath placement. Neurology: -Patient is AAOx3 -Will monitor further in the ICU Cardiology: -Patient with ischemic cardiomyopathy on life vest -Well known to Dr Potts -Troponin on admission 2.5, will repeat -Patient with hypotension -History of atrial fibrillation, no on anticoagulation 2/2 GI bleed -On Cardizem and Toprol XL at home, will hold these medications at this time Respiratory: -Supplemental O2 prn -CXR: Moderate venous congestion. Small left pleural effusion. Bibasilar airspace opacities. Biapical pleural thickening with upper lobe granulomatous changes GI: -Renal diet -Protonix 40mg IVP Renal: -S/P right permacath placement today (08/11/17), AV fistula is malfunctioning -Dr Chiu on consult for declot -Hemodialysis schedule M,W,F -Continue Renal Diet -Nephro on consult, help appreciated Endocrine: -History of Diabetes Type 2 on insulin -Serum glucose on admission 31 -Hold Levemir 10 units SC HS -Accuchecks ACHS -Hypoglycemia protocol Infectious Disease: -No acute issues at this time GI/DVT ppx: -Protonix 40mg IV daily, SCDs -DVT ppx containdicated, hx of GI bleed <Justice Dowell - Last Filed: 08/11/17 18:41> Meds - Medications Medications: Current Medications Dextrose (Dextrose 50% Inj) 0 ml IV STAT PRN; Protocol PRN Reason: Hypoglycemia Protocol Dextrose (Glutose 15) 0 gm PO ONCE PRN; Protocol PRN Reason: Hypoglycemia Protocol Glucagon (Glucagen Diagnostic Kit) 0 mg IM STAT PRN; Protocol PRN Reason: Hypoglycemia Protocol Dextrose (Dextrose 5% In Water 1000 Ml) 1,000 mls @ 0 mls/hr IV .Q0M PRN; Protocol; Per Protocol PRN Reason: Hypoglycemia Protocol Phenylephrine HCl 30 mg/ (Sodium Chloride) 253 mls @ 10.12 mls/hr IV .Q24H PRN ; Protocol; 20 MCG/MIN PRN Reason: TITRATE PER MD ORDER Insulin Aspart (Novolog) 0 unit SC ACHS CORINA PRN Reason: Protocol Midodrine (Proamatine) 5 mg PO ONCE ONE Stop: 08/12/17 18:34 Midodrine (Proamatine) 5 mg PO ONCE STA Stop: 08/11/17 18:39 Pantoprazole Sodium (Protonix Ec Tab) 40 mg PO DAILY [facility] Results - Vital Signs Recent Vital Signs: Last Vital Signs Temp 99.4 F 08/11/17 15:30 Pulse 78 08/11/17 17:30 Resp 18 08/11/17 17:30 BP 156/81 H 08/11/17 17:30 Pulse Ox 100 08/11/17 17:45 - Labs Result Diagrams: 08/11/17 07:50 08/11/17 07:50 Labs: Laboratory Results - last 24 hr 08/11/17 08/11/17 08/11/17 07:39 07:50 07:50 WBC 8.5 D RBC 4.36 L Hgb 13.2 D Hct 39.7 MCV 91.1 D MCH 30.3 MCHC 33.3 RDW 20.0 H Plt Count 136 MPV 10.0 Neut % (Auto) 85.2 H Lymph % (Auto) 9.4 L [place] % (Auto) 5.1 Eos % (Auto) 0.0 Baso % (Auto) 0.3 Neut # (Auto) 7.3 H Lymph # (Auto) 0.8 L [place] # (Auto) 0.4 Eos # (Auto) 0.0 Baso # (Auto) 0.0 Neutrophils % (Manual) 87 H Band Neutrophils % 1 Lymphocytes % (Manual) 8 L Monocytes % (Manual) 4 Platelet Estimate Normal Anisocytosis (manual) Moderate Sodium 142 Potassium 4.7 Chloride 95 L Carbon Dioxide 20 L Anion Gap 32 H BUN 63 H Creatinine 4.7 H Est GFR ( Amer) 15 Est GFR (Non-Af Amer) 12 POC Glucose (mg/dL) 147 H Random Glucose 31 L* D Calcium 9.2 Total Bilirubin 1.7 H AST 329 H D ALT 76 H D Alkaline Phosphatase 160 H D Troponin I 2.5200 H* Total Protein 9.1 H Albumin 4.2 Globulin 4.9 H Albumin/Globulin Ratio 0.8 L 08/11/17 08/11/17 08/11/17 11:37 14:47 16:24 WBC RBC Hgb Hct MCV MCH MCHC RDW Plt Count MPV Neut % (Auto) Lymph % (Auto) [place] % (Auto) Eos % (Auto) Baso % (Auto) Neut # (Auto) Lymph # (Auto) [place] # (Auto) Eos # (Auto) Baso # (Auto) Neutrophils % (Manual) Band Neutrophils % Lymphocytes % (Manual) Monocytes % (Manual) Platelet Estimate Anisocytosis (manual) Sodium Potassium Chloride Carbon Dioxide Anion Gap BUN Creatinine Est GFR ( Amer) Est GFR (Non-Af Amer) POC Glucose (mg/dL) 260 H 189 H 126 H Random Glucose Calcium Total Bilirubin AST ALT Alkaline Phosphatase Troponin I Total Protein Albumin Globulin Albumin/Globulin Ratio 08/11/17 17:29 WBC RBC Hgb Hct MCV MCH MCHC RDW Plt Count MPV Neut % (Auto) Lymph % (Auto) [place] % (Auto) Eos % (Auto) Baso % (Auto) Neut # (Auto) Lymph # (Auto) [place] # (Auto) Eos # (Auto) Baso # (Auto) Neutrophils % (Manual) Band Neutrophils % Lymphocytes % (Manual) Monocytes % (Manual) Platelet Estimate Anisocytosis (manual) Sodium Potassium Chloride Carbon Dioxide Anion Gap BUN Creatinine Est GFR ( Amer) Est GFR (Non-Af Amer) POC Glucose (mg/dL) 102 Random Glucose Calcium Total Bilirubin AST ALT Alkaline Phosphatase Troponin I Total Protein Albumin Globulin Albumin/Globulin Ratio Attending/Attestation - Attestation I have personally seen and examined this patient.: Yes I have fully participated in the care of the patient.: Yes I have reviewed all pertinent clinical information: Yes Notes (Text): 08/11/17 18:40 pt with esrd, metastatic prostate ca, advanced heart disease and chf and on life vest hypotension will abg cxr poor prognosis
[2017-08-11] MEDS ORDERED: Dextrose 50% SYRINGE Inj (50 ml) IV PRN (17:18)
[2017-08-11] MEDS ORDERED: Glucagon Recombinant 1 mg Inj IM PRN (17:18)
--- NOTE | 2017-08-11 17:57 | RAD ---
HISTORY: permacath right jugular COMPARISON: August 11, 2017. Time of the most recent examination: 07:59. FINDINGS: LUNGS: Multifocal infiltrates/ pulmonary vascular congestion unchanged PLEURA: No significant pleural effusion identified, no pneumothorax apparent. CARDIOVASCULAR: Mild cardiomegaly. Venous access catheter in satisfactory position. OSSEOUS STRUCTURES: No significant abnormalities. VISUALIZED UPPER ABDOMEN: Normal. OTHER FINDINGS: None. IMPRESSION: Follow-up to recently placed PermCath. No pneumothorax following catheter placement which appears be in satisfactory position.
[2017-08-11] MEDS ORDERED: Sodium Chloride 0.9% 250 ML IV ONE (18:05)
[2017-08-11 19:16] LABS: ARTERIAL BLOOD GAS HCO3 17.2 mmol/L (21-28); ARTERIAL BLOOD GAS O2 SAT 94.6 % (95-98); ARTERIAL BLOOD GAS PCO2 18 mm/Hg (35-45); ARTERIAL BLOOD GAS PH 7.43 (7.35-7.45); ARTERIAL BLOOD GAS PO2 68 mm/Hg (80-100); ARTERIAL BLOOD GAS TCO2 12.5 mmol/L (22-28)
[2017-08-11] MEDS ORDERED: Digoxin 500 mcg/2ml (0.5 mg/2ml) Inj IVP ONE (19:22)
[2017-08-11] MEDS ORDERED: Piperacillin/Tazobact 3.375 GM in Sodium Chloride 100 ML IVPB ONE (19:30)
[2017-08-11 19:38] LABS: BASO # 0.1 K/uL (0.0-0.2); BASO % 1.2 % (0.0-2.0); LYMPH % 9.3 % (20.0-40.0); MEAN CELL VOLUME 90.8 fL (80.0-94.0); MEAN CORPUSCULAR HEMOGLOBIN 29.9 pg (27.0-31.0); MONO # 0.6 K/uL (0.0-0.8); MONO % 5.1 % (0.0-10.0); NEUT # 9.4 K/uL (1.8-7.0); NEUT % 84.4 % (50.0-75.0); PLATELET COUNT 101 K/uL (130-400); RBC 3.44 Mil/uL (4.40-5.90); RED CELL DISTRIBUTION WIDTH 19.3 % (11.5-14.5); WHITE BLOOD COUNT 11.1 K/uL (4.8-10.8)
[2017-08-11 19:42] LABS: HEMOGLOBIN 10.3 g/dL (12.0-18.0)
[2017-08-11 19:55] LABS: ALB/GLOB RATIO 0.8 (1.0-2.1); ALBUMIN 2.8 g/dL (3.5-5.0); CALCIUM 8.1 mg/dl (8.6-10.4)
[2017-08-11] MEDS ORDERED: Piperacill/Tazo 3.375gm in Dex 3.375 GM/50 ML BAG IVPB ONE (20:00)
[2017-08-11 20:04] LABS: TROPONIN I 1.56 ng/mL (0.00-0.120)
[2017-08-11 20:53] LABS: LYMPHOCYTE 6 % (20-40); MONOCYTE 4 % (0-10); NEUTROPHIL 90 % (50-75); TOTAL CELLS COUNTED 100
[2017-08-11 20:54] LABS: ANISOCYTOSIS SLIGHT; PLATELET ESTIMATE SLIGHTLY DECREASED (NORMAL); POIKILOCYTOSIS SLIGHT
[2017-08-11] MEDS ORDERED: (Novolog) Insulin Aspart, Recombinant 100 u/ml 10 ml vial SC SCH (22:00)
--- NOTE | 2017-08-11 22:45 | CP.PCM.CON ---
History of Present Illness - History of Present Illness History of Present Illness: Patient is a 76 year old male with past medical history of ESRD on HD, CAD s/p CABG, Ischemic cardiomyopathy on Life Vest, Afib not on AC 2/2 history of GI bleed, Diabetes Mellitus, COPD presented to the Hospital for shortness of breath and weakness. Patient was recently discharge from [facility] living [facility] days ago. While in the ER patient found to have low blood sugar and elevated troponin. Patient due for HD today, has malfunctioning AV fistula. Patient went to the OR today for permacath insertion. Post-op patient went upstairs for hemodialysis. Before session started, patient was found to be hypotensive with Initial BP 68/48. ICU evaluation was requested. Will admit patient to the ICU for further monitoring. Patient denies headaches, dizziness, cp, palpitations, sob, abdominal pain. 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 absent: Fatigue, Fever, Frequent Falls, Weight Loss - EENT Eyes: absent: Other Visual Disturbances Ears: absent: Ear Discharge, Abnormal Hearing Nose/Mouth/Throat: absent: Nasal Obstruction, Dysphagia, Sore Throat - Cardiovascular Cardiovascular: Dyspnea on Exertion. absent: Chest Pain, Chest Pain at Rest, Pedal Edema, Syncope - Respiratory Respiratory: absent: Cough, Wheezing - Gastrointestinal Gastrointestinal: absent: Abdominal Pain, Constipation, Diarrhea, Vomiting - Genitourinary Genitourinary: absent: Difficulty Urinating, Flank Pain, Hematuria - Musculoskeletal Musculoskeletal: absent: Abnormal Gait, Deformity, Muscle Weakness - Integumentary Integumentary: absent: Change in Nails, Skin Ulcer, Sores, Unusual Bruising - Neurological Neurological: absent: Abnormal Gait, Abnormal Hearing, Abnormal Movements, Abnormal Speech, Convulsions, Syncope - Psychiatric Psychiatric: absent: Behavioral Changes, Confusion, Depression - Endocrine Endocrine: absent: Polydipsia, Polyphagia, Polyuria - Hematologic/Lymphatic Hematologic: absent: Easy Bleeding, Easy Bruising Physical Exam - Constitutional Appears: No Acute Distress (looks weak but is conversant and answers appropriately ) - Head Exam Head Exam: ATRAUMATIC, NORMOCEPHALIC - Eye Exam Eye Exam: Normal appearance. absent: Nystagmus, Periorbital tenderness - ENT Exam ENT Exam: Mucous Membranes Dry - Neck Exam Neck exam: Positive for: Full Rom. Negative for: Tenderness - Respiratory Exam Respiratory Exam: Decreased Breath Sounds, NORMAL BREATHING PATTERN - Cardiovascular Exam Cardiovascular Exam: Irregular Rhythm - GI/Abdominal Exam GI & Abdominal Exam: Normal Bowel Sounds, Soft. absent: Tenderness - Extremities Exam Extremities exam: Positive for: full ROM, normal inspection. Negative for: joint swelling, pedal edema - Back Exam Back exam: FULL ROM. absent: tenderness - Neurological Exam Neurological exam: Alert, Normal Gait, Oriented x3 - Psychiatric Exam Psychiatric exam: Normal Affect, Normal Mood - Skin Skin Exam: Intact, Normal Color Past Patient History - Past Medical History & Family History Past Medical History?: Yes Past Family History: Reviewed and not pertinent - Past Social History Smoking Status: Former Smoker Chewing Tobacco Use: No Cigar Use: No Alcohol: None Drugs: Denies Home Situation {Lives}: With Family - CARDIAC Hx Atrial Fibrillation: Yes Hx Cardia Arrhythmia: Yes Hx Congestive Heart Failure: Yes Hx Hypercholesterolemia: Yes Hx Hypertension: Yes - PULMONARY Hx Asthma: Yes Hx Chronic Obstructive Pulmonary Disease (COPD): Yes - NEUROLOGICAL Hx Neurological Disorder: Yes - HEENT Hx HEENT Problems: Yes Hx Cataracts: Yes (both eyes) - RENAL Hx Chronic Kidney Disease: Yes - ENDOCRINE/METABOLIC Hx Diabetes Mellitus Type 2: Yes - HEMATOLOGICAL/ONCOLOGICAL Hx Anemia: Yes - INTEGUMENTARY Hx Dermatological Problems: No - MUSCULOSKELETAL/RHEUMATOLOGICAL Hx Falls: No - GASTROINTESTINAL Hx Gastrointestinal Disorders: No - GENITOURINARY/GYNECOLOGICAL Hx Genitourinary Disorders: Yes Hx Hematuria: Yes Hx Prostate Cancer: Yes Hx Prostate Problems: Yes Other/Comment: Prostate Sx 10 years ago robotic surgey 2005 - PSYCHIATRIC Hx Substance Use: No - SURGICAL HISTORY Hx Surgeries: Yes Hx Coronary Artery Bypass Graft: Yes (QUADRUPLE BYPASS in 2006 at [facility] - ANESTHESIA Hx Anesthesia: Yes Hx Anesthesia Reactions: No Hx Malignant Hyperthermia: No Meds Allergies/Adverse Reactions: Allergies Allergy/AdvReac Type Severity Reaction Status Date / Time warfarin sodium Allergy Intermediate RASH Verified 08/11/17 07:15 [From Coumadin] - Medications Medications: Current Medications Dextrose (Dextrose 50% Inj) 0 ml IV STAT PRN; Protocol PRN Reason: Hypoglycemia Protocol Dextrose (Glutose 15) 0 gm PO ONCE PRN; Protocol PRN Reason: Hypoglycemia Protocol Glucagon (Glucagen Diagnostic Kit) 0 mg IM STAT PRN; Protocol PRN Reason: Hypoglycemia Protocol Dextrose (Dextrose 5% In Water 1000 Ml) 1,000 mls @ 0 mls/hr IV .Q0M PRN; Protocol; Per Protocol PRN Reason: Hypoglycemia Protocol Phenylephrine HCl 30 mg/ (Sodium Chloride) 253 mls @ 10.12 mls/hr IV .Q24H PRN ; Protocol; 20 MCG/MIN PRN Reason: TITRATE PER MD ORDER Pantoprazole Sodium (Protonix Ec Tab) 40 mg PO DAILY CORINA Results - Vital Signs Recent Vital Signs: Last Vital Signs Temp 97.5 F L 08/11/17 21:00 Pulse 115 H 08/11/17 21:54 Resp 16 08/11/17 21:45 BP 153/80 H 08/11/17 21:45 Pulse Ox 95 08/11/17 21:45 - Labs Result Diagrams: 08/11/17 19:35 08/11/17 19:35 Labs: Laboratory Results - last 24 hr 08/11/17 08/11/17 08/11/17 07:39 07:50 07:50 WBC 8.5 D RBC 4.36 L Hgb 13.2 D Hct 39.7 MCV 91.1 D MCH 30.3 MCHC 33.3 RDW 20.0 H Plt Count 136 MPV 10.0 Neut % (Auto) 85.2 H Lymph % (Auto) 9.4 L [place] % (Auto) 5.1 Eos % (Auto) 0.0 Baso % (Auto) 0.3 Neut # (Auto) 7.3 H Lymph # (Auto) 0.8 L [place] # (Auto) 0.4 Eos # (Auto) 0.0 Baso # (Auto) 0.0 Neutrophils % (Manual) 87 H Band Neutrophils % 1 Lymphocytes % (Manual) 8 L Monocytes % (Manual) 4 Platelet Estimate Normal Poikilocytosis (manual Anisocytosis (manual) Moderate Puncture Site pCO2 pO2 HCO3 ABG pH ABG Total CO2 ABG O2 Saturation ABG Base Excess [place] Test ABG Potassium A-a O2 Difference Respiratory Index Glucose Lactate FiO2 Crit Value Called To Crit Value Called By Crit Value Read Back Blood Gas Notified Time Sodium 142 Potassium 4.7 Chloride 95 L Carbon Dioxide 20 L Anion Gap 32 H BUN 63 H Creatinine 4.7 H Est GFR ( Amer) 15 Est GFR (Non-Af Amer) 12 POC Glucose (mg/dL) 147 H Random Glucose 31 L* D Calcium 9.2 Phosphorus Magnesium Total Bilirubin 1.7 H AST 329 H D ALT 76 H D Alkaline Phosphatase 160 H D Troponin I 2.5200 H* Total Protein 9.1 H Albumin 4.2 Globulin 4.9 H Albumin/Globulin Ratio 0.8 L Procalcitonin Arterial Blood Potassium 08/11/17 08/11/17 08/11/17 11:37 14:47 16:24 WBC RBC Hgb Hct MCV MCH MCHC RDW Plt Count MPV Neut % (Auto) Lymph % (Auto) [place] % (Auto) Eos % (Auto) Baso % (Auto) Neut # (Auto) Lymph # (Auto) [place] # (Auto) Eos # (Auto) Baso # (Auto) Neutrophils % (Manual) Band Neutrophils % Lymphocytes % (Manual) Monocytes % (Manual) Platelet Estimate Poikilocytosis (manual Anisocytosis (manual) Puncture Site pCO2 pO2 HCO3 ABG pH ABG Total CO2 ABG O2 Saturation ABG Base Excess [place] Test ABG Potassium A-a O2 Difference Respiratory Index Glucose Lactate FiO2 Crit Value Called To Crit Value Called By Crit Value Read Back Blood Gas Notified Time Sodium Potassium Chloride Carbon Dioxide Anion Gap BUN Creatinine Est GFR ( Amer) Est GFR (Non-Af Amer) POC Glucose (mg/dL) 260 H 189 H 126 H Random Glucose Calcium Phosphorus Magnesium Total Bilirubin AST ALT Alkaline Phosphatase Troponin I Total Protein Albumin Globulin Albumin/Globulin Ratio Procalcitonin Arterial Blood Potassium 08/11/17 08/11/17 08/11/17 17:29 19:10 19:35 WBC RBC Hgb Hct MCV MCH MCHC RDW Plt Count MPV Neut % (Auto) Lymph % (Auto) [place] % (Auto) Eos % (Auto) Baso % (Auto) Neut # (Auto) Lymph # (Auto) [place] # (Auto) Eos # (Auto) Baso # (Auto) Neutrophils % (Manual) Band Neutrophils % Lymphocytes % (Manual) Monocytes % (Manual) Platelet Estimate Poikilocytosis (manual Anisocytosis (manual) Puncture Site Rba pCO2 18 L* pO2 68 L HCO3 17.2 L ABG pH 7.43 ABG Total CO2 12.5 L ABG O2 Saturation 94.6 L ABG Base Excess -9.8 L [place] Test Na ABG Potassium 4.8 A-a O2 Difference 230.0 Respiratory Index 3.4 Glucose 72 L Lactate 6.7 H* FiO2 45.0 Crit Value Called To Dr. duffy Crit Value Called By Bette rt Crit Value Read Back Y Blood Gas Notified Time 1915 Sodium 135.0 139 Potassium 5.2 Chloride 102.0 101 Carbon Dioxide 12 L Anion Gap 31 H BUN 69 H Creatinine 5.3 H Est GFR ( Amer) 13 Est GFR (Non-Af Amer) 11 POC Glucose (mg/dL) 102 Random Glucose 76 Calcium 8.1 L Phosphorus 7.7 H Magnesium 2.0 Total Bilirubin 1.3 AST 313 H ALT 91 H Alkaline Phosphatase 108 Troponin I 1.5600 H* Total Protein 6.2 L Albumin 2.8 L D Globulin 3.4 Albumin/Globulin Ratio 0.8 L Procalcitonin Arterial Blood Potassium 4.8 08/11/17 08/11/17 08/11/17 19:35 19:35 21:38 WBC 11.1 H RBC 3.44 L Hgb 10.3 L D Hct 31.3 L MCV 90.8 MCH 29.9 MCHC 33.0 RDW 19.3 H Plt Count 101 L D MPV 10.0 Neut % (Auto) 84.4 H Lymph % (Auto) 9.3 L [place] % (Auto) 5.1 Eos % (Auto) 0.0 Baso % (Auto) 1.2 Neut # (Auto) 9.4 H Lymph # (Auto) 1.0 [place] # (Auto) 0.6 Eos # (Auto) 0.0 Baso # (Auto) 0.1 Neutrophils % (Manual) 90 H Band Neutrophils % Lymphocytes % (Manual) 6 L Monocytes % (Manual) 4 Platelet Estimate Slightly decreased L Poikilocytosis (manual Slight Anisocytosis (manual) Slight Puncture Site pCO2 pO2 HCO3 ABG pH ABG Total CO2 ABG O2 Saturation ABG Base Excess [place] Test ABG Potassium A-a O2 Difference Respiratory Index Glucose Lactate FiO2 Crit Value Called To Crit Value Called By Crit Value Read Back Blood Gas Notified Time Sodium Potassium Chloride Carbon Dioxide Anion Gap BUN Creatinine Est GFR ( Amer) Est GFR (Non-Af Amer) POC Glucose (mg/dL) 95 Random Glucose Calcium Phosphorus Magnesium Total Bilirubin AST ALT Alkaline Phosphatase Troponin I Total Protein Albumin Globulin Albumin/Globulin Ratio Procalcitonin 6.73 H Arterial Blood Potassium Assessment & Plan - Assessment and Plan (Free Text) Assessment: Patient is a 76 year old male with past medical history of ESRD on HD, CAD s/p CABG, Ischemic cardiomyopathy on Life Vest, Afib not on AC 2/2 history of GI bleed, Diabetes Mellitus, COPD presented to the Hospital for shortness of breath and weakness. Found to be hypotensive s/p permacath placement. Neurology: -Patient is AAOx3 -Will monitor further in the ICU Cardiology: -Patient with ischemic cardiomyopathy on life vest -Troponin on admission 2.5, will repeat -Patient with hypotension -History of atrial fibrillation, no on anticoagulation 2/2 GI bleed -On Cardizem and Toprol XL at home, will hold these medications at this time Respiratory: -Supplemental O2 prn -CXR: Moderate venous congestion. Small left pleural effusion. Bibasilar airspace opacities. Biapical pleural thickening with upper lobe granulomatous changes GI: -Renal diet -Protonix 40mg IVP Renal: -S/P right permacath placement today (08/11/17), AV fistula is malfunctioning -Dr Chiu on consult for declot -Hemodialysis schedule M,W,F -Continue Renal Diet -Nephro on consult, help appreciated Endocrine: -History of Diabetes Type 2 on insulin -Serum glucose on admission 31 -Hold Levemir 10 units SC HS -Accuchecks ACHS -Hypoglycemia protocol Infectious Disease: -No acute issues at this time GI/DVT ppx: -Protonix 40mg IV daily, SCDs -DVT ppx containdicated, hx of GI bleed Conservative management for now No plans for cath at this time
[2017-08-11 23:44] LABS: VENOUS BLOOD GAS BASE EXCESS 6.5 mmol/L (0.0-2.0); VENOUS BLOOD GAS PCO2 64 mmHg (40-60); VENOUS BLOOD GAS PO2 26 mm/Hg (30-55); VENOUS BLOOD PH 7.34 (7.32-7.43)
[2017-08-12] MEDS ORDERED: Digoxin 500 mcg/2ml (0.5 mg/2ml) Inj IVP ONE ×2 (00:13→18:17)
[2017-08-12 00:32] LABS: CALCIUM 7.9 mg/dl (8.6-10.4)
--- NOTE | 2017-08-12 00:55 | OP ---
PROCEDURE DATE: 08/11/2017 PREOPERATIVE DIAGNOSIS: Clotted shunt, right arm. PROCEDURE CARRIED OUT: Right jugular Perm-A-Cath with C-arm fluoroscopy with ultrasound-guided puncture and micropuncture technique. SURGEON: Dr. Law. PAINT AND TABLE EDGER: None. ANESTHESIOLOGIST: Mr. Jairo CRNA. TYPE OF ANESTHESIA: Local with sedation. INDICATIONS: The patient is an elderly male with renal insufficiency. Previously he had a prosthetic access in his right upper arm, which failed unexpectedly during his episodes of heart failure. OPERATIVE FINDINGS: One catheter was inserted uneventfully via jugular vein. PROCEDURE: The patient was given local anesthesia, using ultrasound guidance and micropuncture technique the right jugular vein was punctured. Under fluoroscopic control, the guidewire was advanced centrally. A sheath dilator was passed over this and exchanged for an 0.035 wire and eventually we placed the catheter, so it originated on the right chest wall, went through the jugular vein, and terminated in the superior vena cava of right atrium. There was excellent flow. It was secured to the skin with sutures. The wounds were closed. The procedure was terminated. Blood loss was 10 to 15 mL, so the operation was carried out, Perm-A-Cath in right jugular vein with C-arm fluoroscopy and ultrasound-guided puncture. Ultrasound-guided images of the neck showed the vein was about 15 mm in diameter with normal compressibility and no intraluminal thrombosis. Jone Law Jr., MD Joni Abel M.D.
[2017-08-12] MEDS ORDERED: Metoprolol 1 mg/ml Inj IVP ONE (01:16)
[2017-08-12 05:10] LABS: BASO # 0.1 K/uL (0.0-0.2); BASO % 0.5 % (0.0-2.0); HEMOGLOBIN 10.6 g/dL (12.0-18.0); LYMPH # 2.2 K/uL (1.0-4.3); MEAN CELL VOLUME 94.3 fL (80.0-94.0); MEAN CORPUSCULAR HEMOGLOBIN 29.6 pg (27.0-31.0); MEAN CORPUSCULAR HGB CONC 31.4 g/dL (33.0-37.0); MEAN PLATELET VOLUME 10.6 fL (7.2-11.7); MONO # 0.3 K/uL (0.0-0.8); MONO % 2.2 % (0.0-10.0); NEUT % 82.3 % (50.0-75.0); NRBC % 0.2 % (0.0-2.0); RBC 3.57 Mil/uL (4.40-5.90); RED CELL DISTRIBUTION WIDTH 19.8 % (11.5-14.5); WHITE BLOOD COUNT 14.6 K/uL (4.8-10.8)
[2017-08-12 05:24] LABS: INR 1.5; PROTHROMBIN TIME 17.1 SECONDS (9.7-12.2)
--- NOTE | 2017-08-12 05:27 | CP.CCUPN ---
CCU Subjective - Physician Review Events Since Last Encounter (Free Text): 08/12/17 05:24 patient became bradycardic and then unresponsive,code blue initiated CPR performed,intubated patients mental status imprved,awake ,following commands ESRD on HD, CAD s/p CABG, Ischemic cardiomyopathy on Life Vest, Afib , Diabetes Mellitus, continue meds Subjective (Free Text): 08/12/17 05:27 orally intubated,denies chest pain ,palpitations CCU Objective - Vital Signs / Intake & Output Vital Signs (Last 4 hours): Vital Signs Pulse Resp BP Pulse Ox 08/12/17 02:20 117 H 21 08/12/17 02:14 109 H 27 H 124/66 08/12/17 01:53 119/68 08/12/17 01:37 127 H 19 113/80 96 Intake and Output (Last 8hrs): Intake & Output 08/11/17 08/11/17 08/12/17 14:59 22:59 06:59 Intake Total 100 570 170 Output Total 0 Balance 100 570 170 Weight 132 lb 4.438 oz 125 lb 10.616 oz Intake: IV 100 50 Intake, IV Amount 250 50 Left Antecubital 250 50 Oral 270 120 Output: Urine 0 Urine, Voided 0 Stool 0 Other: # Voids Urine, Voided 0 0 # Bowel Movements 0 0 - Physical Exam Physical Exam Limitations: Positive for: Other (awake,follows commands ,moves all extremities) Head: Positive for: Atraumatic, Normocephalic Pupils: Positive for: PERRL Extroacular Muscles: Positive for: EOMI Conjunctiva: Positive for: Normal Mouth: Positive for: Dry Nose (External): Positive for: Atraumatic Neck: Negative for: JVD Respiratory/Chest: Positive for: Clear to Auscultation, Good Air Exchange Cardiovascular: Positive for: Irregular Rhythm, Tachycardic Abdomen: Positive for: Normal Bowel Sounds. Negative for: Distention Upper Extremity: Positive for: Normal Inspection Lower Extremity: Positive for: Normal Inspection Skin: Positive for: Dry Psychiatric: Positive for: Alert - Medications Active Medications: Active Medications Generic Name Dose Route Start Last Admin Trade Name Freq PRN Reason Stop Dose Admin Dextrose 0 ml 08/11/17 17:18 Dextrose 50% Inj IV STAT PRN Hypoglycemia Protocol Protocol Dextrose 0 gm 08/11/17 17:18 Glutose 15 PO ONCE PRN Hypoglycemia Protocol Protocol Glucagon 0 mg 08/11/17 17:18 Glucagen Diagnostic Kit IM STAT PRN Hypoglycemia Protocol Protocol Dextrose 1,000 mls @ 0 mls/hr 08/11/17 17:18 Dextrose 5% In Water 1000 Ml IV .Q0M PRN Hypoglycemia Protocol Protocol Per Protocol Phenylephrine HCl 30 mg/ 253 mls @ 10.12 mls/hr 08/11/17 18:28 Sodium Chloride IV .Q24H PRN TITRATE PER MD ORDER Protocol 20 MCG/MIN Pantoprazole Sodium 40 mg 08/12/17 10:00 Protonix Ec Tab PO DAILY CORINA - Patient Studies Lab Studies: Lab Studies 08/12/17 08/12/17 08/11/17 Range/Units 05:07 00:17 23:40 WBC 14.6 H (4.8-10.8) K/uL RBC 3.57 L (4.40-5.90) Mil/uL Hgb 10.6 L (12.0-18.0) g/dL Hct 33.7 L (35.0-51.0) % MCV 94.3 H D (80.0-94.0) fL MCH 29.6 (27.0-31.0) pg MCHC 31.4 L (33.0-37.0) g/dL RDW 19.8 H (11.5-14.5) % Plt Count 107 L (130-400) K/uL MPV 10.6 (7.2-11.7) fL Neut % (Auto) 82.3 H (50.0-75.0) % Lymph % (Auto) 15.0 L (20.0-40.0) % [place] % (Auto) 2.2 (0.0-10.0) % Eos % (Auto) 0.0 (0.0-4.0) % Baso % (Auto) 0.5 (0.0-2.0) % Neut # (Auto) 12.0 H (1.8-7.0) K/uL Lymph # (Auto) 2.2 (1.0-4.3) K/uL [place] # (Auto) 0.3 (0.0-0.8) K/uL Eos # (Auto) 0.0 (0.0-0.7) K/uL Baso # (Auto) 0.1 (0.0-0.2) K/uL Neutrophils % (Manual) (50-75) % Band Neutrophils % (0-2) % Lymphocytes % (Manual) (20-40) % Monocytes % (Manual) (0-10) % Platelet Estimate (NORMAL) Poikilocytosis (manual Anisocytosis (manual) Puncture Site pCO2 (35-45) mm/Hg pO2 26 L (80-100) mm/Hg HCO3 (21-28) mmol/L ABG pH (7.35-7.45) ABG Total CO2 (22-28) mmol/L ABG O2 Saturation (95-98) % ABG Base Excess (-2.0-3.0) mmol/L [place] Test ABG Potassium (3.6-5.2) mmol/L VBG pH 7.34 (7.32-7.43) VBG pCO2 64 H (40-60) mmHg VBG HCO3 28.5 mmol/L VBG Total CO2 36.5 H (22-28) mmol/L VBG O2 Sat (Calc) 40.8 (40-65) % VBG Base Excess 6.5 H (0.0-2.0) mmol/L VBG Potassium 1.8 L* (3.6-5.2) mmol/L A-a O2 Difference mm/Hg Respiratory Index Glucose 95 (75-110) mg/dl Lactate 0.9 (0.7-2.1) mmol/L FiO2 % Crit Value Called To [facility] nurse michelle Crit Value Called By Bette rowe Crit Value Read Back Y Blood Gas Notified Time 2344 Sodium 142 136.0 (132-148) mmol/L Potassium 3.7 (3.6-5.2) mmol/L Chloride 97 L 97.0 L (98-107) mmol/L Carbon Dioxide 28 (22-30) mmol/L Anion Gap 21 H (10-20) BUN 22 H (9-20) mg/dL Creatinine 2.1 H (0.8-1.5) mg/dL Est GFR ( Amer) 37 Est GFR (Non-Af Amer) 31 POC Glucose (mg/dL) (65-110) mg/dL Random Glucose 107 (75-110) mg/dL Calcium 7.9 L (8.6-10.4) mg/dl Phosphorus (2.5-4.5) mg/dL Magnesium (1.6-2.3) mg/dL Total Bilirubin (0.2-1.3) mg/dL AST (17-59) U/L ALT (21-72) U/L Alkaline Phosphatase (38-126) U/L Troponin I (0.00-0.120) ng/mL Total Protein (6.3-8.3) g/dL Albumin (3.5-5.0) g/dL Globulin (2.2-3.9) gm/dL Albumin/Globulin Ratio (1.0-2.1) Procalcitonin (0.19-0.49) NG/ML Arterial Blood Potassium (3.6-5.2) mmol/L Venous Blood Potassium 1.8 L* (3.6-5.2) mmol/L 08/11/17 08/11/17 08/11/17 Range/Units 21:38 19:35 19:35 WBC 11.1 H (4.8-10.8) K/uL RBC 3.44 L (4.40-5.90) Mil/uL Hgb 10.3 L D (12.0-18.0) g/dL Hct 31.3 L (35.0-51.0) % MCV 90.8 (80.0-94.0) fL MCH 29.9 (27.0-31.0) pg MCHC 33.0 (33.0-37.0) g/dL RDW 19.3 H (11.5-14.5) % Plt Count 101 L D (130-400) K/uL MPV 10.0 (7.2-11.7) fL Neut % (Auto) 84.4 H (50.0-75.0) % Lymph % (Auto) 9.3 L (20.0-40.0) % [place] % (Auto) 5.1 (0.0-10.0) % Eos % (Auto) 0.0 (0.0-4.0) % Baso % (Auto) 1.2 (0.0-2.0) % Neut # (Auto) 9.4 H (1.8-7.0) K/uL Lymph # (Auto) 1.0 (1.0-4.3) K/uL [place] # (Auto) 0.6 (0.0-0.8) K/uL Eos # (Auto) 0.0 (0.0-0.7) K/uL Baso # (Auto) 0.1 (0.0-0.2) K/uL Neutrophils % (Manual) 90 H (50-75) % Band Neutrophils % (0-2) % Lymphocytes % (Manual) 6 L (20-40) % Monocytes % (Manual) 4 (0-10) % Platelet Estimate Slightly decreased L (NORMAL) Poikilocytosis (manual Slight Anisocytosis (manual) Slight Puncture Site pCO2 (35-45) mm/Hg pO2 (80-100) mm/Hg HCO3 (21-28) mmol/L ABG pH (7.35-7.45) ABG Total CO2 (22-28) mmol/L ABG O2 Saturation (95-98) % ABG Base Excess (-2.0-3.0) mmol/L [place] Test ABG Potassium (3.6-5.2) mmol/L VBG pH (7.32-7.43) VBG pCO2 (40-60) mmHg VBG HCO3 mmol/L VBG Total CO2 (22-28) mmol/L VBG O2 Sat (Calc) (40-65) % VBG Base Excess (0.0-2.0) mmol/L VBG Potassium (3.6-5.2) mmol/L A-a O2 Difference mm/Hg Respiratory Index Glucose (75-110) mg/dl Lactate (0.7-2.1) mmol/L FiO2 % Crit Value Called To Crit Value Called By Crit Value Read Back Blood Gas Notified Time Sodium (132-148) mmol/L Potassium (3.6-5.2) mmol/L Chloride (98-107) mmol/L Carbon Dioxide (22-30) mmol/L Anion Gap (10-20) BUN (9-20) mg/dL Creatinine (0.8-1.5) mg/dL Est GFR ( Amer) Est GFR (Non-Af Amer) POC Glucose (mg/dL) 95 (65-110) mg/dL Random Glucose (75-110) mg/dL Calcium (8.6-10.4) mg/dl Phosphorus (2.5-4.5) mg/dL Magnesium (1.6-2.3) mg/dL Total Bilirubin (0.2-1.3) mg/dL AST (17-59) U/L ALT (21-72) U/L Alkaline Phosphatase (38-126) U/L Troponin I (0.00-0.120) ng/mL Total Protein (6.3-8.3) g/dL Albumin (3.5-5.0) g/dL Globulin (2.2-3.9) gm/dL Albumin/Globulin Ratio (1.0-2.1) Procalcitonin 6.73 H (0.19-0.49) NG/ML Arterial Blood Potassium (3.6-5.2) mmol/L Venous Blood Potassium (3.6-5.2) mmol/L 08/11/17 08/11/17 08/11/17 Range/Units 19:35 19:10 17:29 WBC (4.8-10.8) K/uL RBC (4.40-5.90) Mil/uL Hgb (12.0-18.0) g/dL Hct (35.0-51.0) % MCV (80.0-94.0) fL MCH (27.0-31.0) pg MCHC (33.0-37.0) g/dL RDW (11.5-14.5) % Plt Count (130-400) K/uL MPV (7.2-11.7) fL Neut % (Auto) (50.0-75.0) % Lymph % (Auto) (20.0-40.0) % [place] % (Auto) (0.0-10.0) % Eos % (Auto) (0.0-4.0) % Baso % (Auto) (0.0-2.0) % Neut # (Auto) (1.8-7.0) K/uL Lymph # (Auto) (1.0-4.3) K/uL [place] # (Auto) (0.0-0.8) K/uL Eos # (Auto) (0.0-0.7) K/uL Baso # (Auto) (0.0-0.2) K/uL Neutrophils % (Manual) (50-75) % Band Neutrophils % (0-2) % Lymphocytes % (Manual) (20-40) % Monocytes % (Manual) (0-10) % Platelet Estimate (NORMAL) Poikilocytosis (manual Anisocytosis (manual) Puncture Site Rba pCO2 18 L* (35-45) mm/Hg pO2 68 L (80-100) mm/Hg HCO3 17.2 L (21-28) mmol/L ABG pH 7.43 (7.35-7.45) ABG Total CO2 12.5 L (22-28) mmol/L ABG O2 Saturation 94.6 L (95-98) % ABG Base Excess -9.8 L (-2.0-3.0) mmol/L [place] Test Na ABG Potassium 4.8 (3.6-5.2) mmol/L VBG pH (7.32-7.43) VBG pCO2 (40-60) mmHg VBG HCO3 mmol/L VBG Total CO2 (22-28) mmol/L VBG O2 Sat (Calc) (40-65) % VBG Base Excess (0.0-2.0) mmol/L VBG Potassium (3.6-5.2) mmol/L A-a O2 Difference 230.0 mm/Hg Respiratory Index 3.4 Glucose 72 L (75-110) mg/dl Lactate 6.7 H* (0.7-2.1) mmol/L FiO2 45.0 % Crit Value Called To Dr. duffy Crit Value Called By Bette rowe Crit Value Read Back Y Blood Gas Notified Time 1915 Sodium 139 135.0 (132-148) mmol/L Potassium 5.2 (3.6-5.2) mmol/L Chloride 101 102.0 (98-107) mmol/L Carbon Dioxide 12 L (22-30) mmol/L Anion Gap 31 H (10-20) BUN 69 H (9-20) mg/dL Creatinine 5.3 H (0.8-1.5) mg/dL Est GFR ( Amer) 13 Est GFR (Non-Af Amer) 11 POC Glucose (mg/dL) 102 (65-110) mg/dL Random Glucose 76 (75-110) mg/dL Calcium 8.1 L (8.6-10.4) mg/dl Phosphorus 7.7 H (2.5-4.5) mg/dL Magnesium 2.0 (1.6-2.3) mg/dL Total Bilirubin 1.3 (0.2-1.3) mg/dL AST 313 H (17-59) U/L ALT 91 H (21-72) U/L Alkaline Phosphatase 108 (38-126) U/L Troponin I 1.5600 H* (0.00-0.120) ng/mL Total Protein 6.2 L (6.3-8.3) g/dL Albumin 2.8 L D (3.5-5.0) g/dL Globulin 3.4 (2.2-3.9) gm/dL Albumin/Globulin Ratio 0.8 L (1.0-2.1) Procalcitonin (0.19-0.49) NG/ML Arterial Blood Potassium 4.8 (3.6-5.2) mmol/L Venous Blood Potassium (3.6-5.2) mmol/L 08/11/17 08/11/17 08/11/17 Range/Units 16:24 14:47 11:37 WBC (4.8-10.8) K/uL RBC (4.40-5.90) Mil/uL Hgb (12.0-18.0) g/dL Hct (35.0-51.0) % MCV (80.0-94.0) fL MCH (27.0-31.0) pg MCHC (33.0-37.0) g/dL RDW (11.5-14.5) % Plt Count (130-400) K/uL MPV (7.2-11.7) fL Neut % (Auto) (50.0-75.0) % Lymph % (Auto) (20.0-40.0) % [place] % (Auto) (0.0-10.0) % Eos % (Auto) (0.0-4.0) % Baso % (Auto) (0.0-2.0) % Neut # (Auto) (1.8-7.0) K/uL Lymph # (Auto) (1.0-4.3) K/uL [place] # (Auto) (0.0-0.8) K/uL Eos # (Auto) (0.0-0.7) K/uL Baso # (Auto) (0.0-0.2) K/uL Neutrophils % (Manual) (50-75) % Band Neutrophils % (0-2) % Lymphocytes % (Manual) (20-40) % Monocytes % (Manual) (0-10) % Platelet Estimate (NORMAL) Poikilocytosis (manual Anisocytosis (manual) Puncture Site pCO2 (35-45) mm/Hg pO2 (80-100) mm/Hg HCO3 (21-28) mmol/L ABG pH (7.35-7.45) ABG Total CO2 (22-28) mmol/L ABG O2 Saturation (95-98) % ABG Base Excess (-2.0-3.0) mmol/L [place] Test ABG Potassium (3.6-5.2) mmol/L VBG pH (7.32-7.43) VBG pCO2 (40-60) mmHg VBG HCO3 mmol/L VBG Total CO2 (22-28) mmol/L VBG O2 Sat (Calc) (40-65) % VBG Base Excess (0.0-2.0) mmol/L VBG Potassium (3.6-5.2) mmol/L A-a O2 Difference mm/Hg Respiratory Index Glucose (75-110) mg/dl Lactate (0.7-2.1) mmol/L FiO2 % Crit Value Called To Crit Value Called By Crit Value Read Back Blood Gas Notified Time Sodium (132-148) mmol/L Potassium (3.6-5.2) mmol/L Chloride (98-107) mmol/L Carbon Dioxide (22-30) mmol/L Anion Gap (10-20) BUN (9-20) mg/dL Creatinine (0.8-1.5) mg/dL Est GFR ( Amer) Est GFR (Non-Af Amer) POC Glucose (mg/dL) 126 H 189 H 260 H (65-110) mg/dL Random Glucose (75-110) mg/dL Calcium (8.6-10.4) mg/dl Phosphorus (2.5-4.5) mg/dL Magnesium (1.6-2.3) mg/dL Total Bilirubin (0.2-1.3) mg/dL AST (17-59) U/L ALT (21-72) U/L Alkaline Phosphatase (38-126) U/L Troponin I (0.00-0.120) ng/mL Total Protein (6.3-8.3) g/dL Albumin (3.5-5.0) g/dL Globulin (2.2-3.9) gm/dL Albumin/Globulin Ratio (1.0-2.1) Procalcitonin (0.19-0.49) NG/ML Arterial Blood Potassium (3.6-5.2) mmol/L Venous Blood Potassium (3.6-5.2) mmol/L 08/11/17 08/11/17 08/11/17 Range/Units 07:50 07:50 07:39 WBC 8.5 D (4.8-10.8) K/uL RBC 4.36 L (4.40-5.90) Mil/uL Hgb 13.2 D (12.0-18.0) g/dL Hct 39.7 (35.0-51.0) % MCV 91.1 D (80.0-94.0) fL MCH 30.3 (27.0-31.0) pg MCHC 33.3 (33.0-37.0) g/dL RDW 20.0 H (11.5-14.5) % Plt Count 136 (130-400) K/uL MPV 10.0 (7.2-11.7) fL Neut % (Auto) 85.2 H (50.0-75.0) % Lymph % (Auto) 9.4 L (20.0-40.0) % [place] % (Auto) 5.1 (0.0-10.0) % Eos % (Auto) 0.0 (0.0-4.0) % Baso % (Auto) 0.3 (0.0-2.0) % Neut # (Auto) 7.3 H (1.8-7.0) K/uL Lymph # (Auto) 0.8 L (1.0-4.3) K/uL [place] # (Auto) 0.4 (0.0-0.8) K/uL Eos # (Auto) 0.0 (0.0-0.7) K/uL Baso # (Auto) 0.0 (0.0-0.2) K/uL Neutrophils % (Manual) 87 H (50-75) % Band Neutrophils % 1 (0-2) % Lymphocytes % (Manual) 8 L (20-40) % Monocytes % (Manual) 4 (0-10) % Platelet Estimate Normal (NORMAL) Poikilocytosis (manual Anisocytosis (manual) Moderate Puncture Site pCO2 (35-45) mm/Hg pO2 (80-100) mm/Hg HCO3 (21-28) mmol/L ABG pH (7.35-7.45) ABG Total CO2 (22-28) mmol/L ABG O2 Saturation (95-98) % ABG Base Excess (-2.0-3.0) mmol/L [place] Test ABG Potassium (3.6-5.2) mmol/L VBG pH (7.32-7.43) VBG pCO2 (40-60) mmHg VBG HCO3 mmol/L VBG Total CO2 (22-28) mmol/L VBG O2 Sat (Calc) (40-65) % VBG Base Excess (0.0-2.0) mmol/L VBG Potassium (3.6-5.2) mmol/L A-a O2 Difference mm/Hg Respiratory Index Glucose (75-110) mg/dl Lactate (0.7-2.1) mmol/L FiO2 % Crit Value Called To Crit Value Called By Crit Value Read Back Blood Gas Notified Time Sodium 142 (132-148) mmol/L Potassium 4.7 (3.6-5.2) mmol/L Chloride 95 L (98-107) mmol/L Carbon Dioxide 20 L (22-30) mmol/L Anion Gap 32 H (10-20) BUN 63 H (9-20) mg/dL Creatinine 4.7 H (0.8-1.5) mg/dL Est GFR ( Amer) 15 Est GFR (Non-Af Amer) 12 POC Glucose (mg/dL) 147 H (65-110) mg/dL Random Glucose 31 L* D (75-110) mg/dL Calcium 9.2 (8.6-10.4) mg/dl Phosphorus (2.5-4.5) mg/dL Magnesium (1.6-2.3) mg/dL Total Bilirubin 1.7 H (0.2-1.3) mg/dL AST 329 H D (17-59) U/L ALT 76 H D (21-72) U/L Alkaline Phosphatase 160 H D (38-126) U/L Troponin I 2.5200 H* (0.00-0.120) ng/mL Total Protein 9.1 H (6.3-8.3) g/dL Albumin 4.2 (3.5-5.0) g/dL Globulin 4.9 H (2.2-3.9) gm/dL Albumin/Globulin Ratio 0.8 L (1.0-2.1) Procalcitonin (0.19-0.49) NG/ML Arterial Blood Potassium (3.6-5.2) mmol/L Venous Blood Potassium (3.6-5.2) mmol/L Laboratory Results - last 24 hr 08/11/17 08/11/17 08/11/17 07:39 07:50 07:50 WBC 8.5 D RBC 4.36 L Hgb 13.2 D Hct 39.7 MCV 91.1 D MCH 30.3 MCHC 33.3 RDW 20.0 H Plt Count 136 MPV 10.0 Neut % (Auto) 85.2 H Lymph % (Auto) 9.4 L [place] % (Auto) 5.1 Eos % (Auto) 0.0 Baso % (Auto) 0.3 Neut # (Auto) 7.3 H Lymph # (Auto) 0.8 L [place] # (Auto) 0.4 Eos # (Auto) 0.0 Baso # (Auto) 0.0 Neutrophils % (Manual) 87 H Band Neutrophils % 1 Lymphocytes % (Manual) 8 L Monocytes % (Manual) 4 Platelet Estimate Normal Poikilocytosis (manual Anisocytosis (manual) Moderate Puncture Site pCO2 pO2 HCO3 ABG pH ABG Total CO2 ABG O2 Saturation ABG Base Excess [place] Test ABG Potassium VBG pH VBG pCO2 VBG HCO3 VBG Total CO2 VBG O2 Sat (Calc) VBG Base Excess VBG Potassium A-a O2 Difference Respiratory Index Glucose Lactate FiO2 Crit Value Called To Crit Value Called By Crit Value Read Back Blood Gas Notified Time Sodium 142 Potassium 4.7 Chloride 95 L Carbon Dioxide 20 L Anion Gap 32 H BUN 63 H Creatinine 4.7 H Est GFR ( Amer) 15 Est GFR (Non-Af Amer) 12 POC Glucose (mg/dL) 147 H Random Glucose 31 L* D Calcium 9.2 Phosphorus Magnesium Total Bilirubin 1.7 H AST 329 H D ALT 76 H D Alkaline Phosphatase 160 H D Troponin I 2.5200 H* Total Protein 9.1 H Albumin 4.2 Globulin 4.9 H Albumin/Globulin Ratio 0.8 L Procalcitonin Arterial Blood Potassium Venous Blood Potassium 08/11/17 08/11/17 08/11/17 11:37 14:47 16:24 WBC RBC Hgb Hct MCV MCH MCHC RDW Plt Count MPV Neut % (Auto) Lymph % (Auto) [place] % (Auto) Eos % (Auto) Baso % (Auto) Neut # (Auto) Lymph # (Auto) [place] # (Auto) Eos # (Auto) Baso # (Auto) Neutrophils % (Manual) Band Neutrophils % Lymphocytes % (Manual) Monocytes % (Manual) Platelet Estimate Poikilocytosis (manual Anisocytosis (manual) Puncture Site pCO2 pO2 HCO3 ABG pH ABG Total CO2 ABG O2 Saturation ABG Base Excess [place] Test ABG Potassium VBG pH VBG pCO2 VBG HCO3 VBG Total CO2 VBG O2 Sat (Calc) VBG Base Excess VBG Potassium A-a O2 Difference Respiratory Index Glucose Lactate FiO2 Crit Value Called To Crit Value Called By Crit Value Read Back Blood Gas Notified Time Sodium Potassium Chloride Carbon Dioxide Anion Gap BUN Creatinine Est GFR ( Amer) Est GFR (Non-Af Amer) POC Glucose (mg/dL) 260 H 189 H 126 H Random Glucose Calcium Phosphorus Magnesium Total Bilirubin AST ALT Alkaline Phosphatase Troponin I Total Protein Albumin Globulin Albumin/Globulin Ratio Procalcitonin Arterial Blood Potassium Venous Blood Potassium 08/11/17 08/11/17 08/11/17 17:29 19:10 19:35 WBC RBC Hgb Hct MCV MCH MCHC RDW Plt Count MPV Neut % (Auto) Lymph % (Auto) [place] % (Auto) Eos % (Auto) Baso % (Auto) Neut # (Auto) Lymph # (Auto) [place] # (Auto) Eos # (Auto) Baso # (Auto) Neutrophils % (Manual) Band Neutrophils % Lymphocytes % (Manual) Monocytes % (Manual) Platelet Estimate Poikilocytosis (manual Anisocytosis (manual) Puncture Site Rba pCO2 18 L* pO2 68 L HCO3 17.2 L ABG pH 7.43 ABG Total CO2 12.5 L ABG O2 Saturation 94.6 L ABG Base Excess -9.8 L [place] Test Na ABG Potassium 4.8 VBG pH VBG pCO2 VBG HCO3 VBG Total CO2 VBG O2 Sat (Calc) VBG Base Excess VBG Potassium A-a O2 Difference 230.0 Respiratory Index 3.4 Glucose 72 L Lactate 6.7 H* FiO2 45.0 Crit Value Called To Dr. duffy Crit Value Called By Bette rt Crit Value Read Back Y Blood Gas Notified Time 1915 Sodium 135.0 139 Potassium 5.2 Chloride 102.0 101 Carbon Dioxide 12 L Anion Gap 31 H BUN 69 H Creatinine 5.3 H Est GFR ( Amer) 13 Est GFR (Non-Af Amer) 11 POC Glucose (mg/dL) 102 Random Glucose 76 Calcium 8.1 L Phosphorus 7.7 H Magnesium 2.0 Total Bilirubin 1.3 AST 313 H ALT 91 H Alkaline Phosphatase 108 Troponin I 1.5600 H* Total Protein 6.2 L Albumin 2.8 L D Globulin 3.4 Albumin/Globulin Ratio 0.8 L Procalcitonin Arterial Blood Potassium 4.8 Venous Blood Potassium 08/11/17 08/11/17 08/11/17 19:35 19:35 21:38 WBC 11.1 H RBC 3.44 L Hgb 10.3 L D Hct 31.3 L MCV 90.8 MCH 29.9 MCHC 33.0 RDW 19.3 H Plt Count 101 L D MPV 10.0 Neut % (Auto) 84.4 H Lymph % (Auto) 9.3 L [place] % (Auto) 5.1 Eos % (Auto) 0.0 Baso % (Auto) 1.2 Neut # (Auto) 9.4 H Lymph # (Auto) 1.0 [place] # (Auto) 0.6 Eos # (Auto) 0.0 Baso # (Auto) 0.1 Neutrophils % (Manual) 90 H Band Neutrophils % Lymphocytes % (Manual) 6 L Monocytes % (Manual) 4 Platelet Estimate Slightly decreased L Poikilocytosis (manual Slight Anisocytosis (manual) Slight Puncture Site pCO2 pO2 HCO3 ABG pH ABG Total CO2 ABG O2 Saturation ABG Base Excess [place] Test ABG Potassium VBG pH VBG pCO2 VBG HCO3 VBG Total CO2 VBG O2 Sat (Calc) VBG Base Excess VBG Potassium A-a O2 Difference Respiratory Index Glucose Lactate FiO2 Crit Value Called To Crit Value Called By Crit Value Read Back Blood Gas Notified Time Sodium Potassium Chloride Carbon Dioxide Anion Gap BUN Creatinine Est GFR ( Amer) Est GFR (Non-Af Amer) POC Glucose (mg/dL) 95 Random Glucose Calcium Phosphorus Magnesium Total Bilirubin AST ALT Alkaline Phosphatase Troponin I Total Protein Albumin Globulin Albumin/Globulin Ratio Procalcitonin 6.73 H Arterial Blood Potassium Venous Blood Potassium 08/11/17 08/12/17 08/12/17 23:40 00:17 05:07 WBC 14.6 H RBC 3.57 L Hgb 10.6 L Hct 33.7 L MCV 94.3 H D MCH 29.6 MCHC 31.4 L RDW 19.8 H Plt Count 107 L MPV 10.6 Neut % (Auto) 82.3 H Lymph % (Auto) 15.0 L [place] % (Auto) 2.2 Eos % (Auto) 0.0 Baso % (Auto) 0.5 Neut # (Auto) 12.0 H Lymph # (Auto) 2.2 [place] # (Auto) 0.3 Eos # (Auto) 0.0 Baso # (Auto) 0.1 Neutrophils % (Manual) Band Neutrophils % Lymphocytes % (Manual) Monocytes % (Manual) Platelet Estimate Poikilocytosis (manual Anisocytosis (manual) Puncture Site pCO2 pO2 26 L HCO3 ABG pH ABG Total CO2 ABG O2 Saturation ABG Base Excess [place] Test ABG Potassium VBG pH 7.34 VBG pCO2 64 H VBG HCO3 28.5 VBG Total CO2 36.5 H VBG O2 Sat (Calc) 40.8 VBG Base Excess 6.5 H VBG Potassium 1.8 L* A-a O2 Difference Respiratory Index Glucose 95 Lactate 0.9 FiO2 Crit Value Called To [facility] nurse michelle Crit Value Called By Bette rowe Crit Value Read Back Y Blood Gas Notified Time 2344 Sodium 136.0 142 Potassium 3.7 Chloride 97.0 L 97 L Carbon Dioxide 28 Anion Gap 21 H BUN 22 H Creatinine 2.1 H Est GFR ( Amer) 37 Est GFR (Non-Af Amer) 31 POC Glucose (mg/dL) Random Glucose 107 Calcium 7.9 L Phosphorus Magnesium Total Bilirubin AST ALT Alkaline Phosphatase Troponin I Total Protein Albumin Globulin Albumin/Globulin Ratio Procalcitonin Arterial Blood Potassium Venous Blood Potassium 1.8 L* EKG/Cardiology Studies: Cardiology / EKG Studies 08/11/17 07:44 ELECTROCARDIOGRAM Stat Comment: Mode Of Transportation: BED Reason For Exam: chest pain Fingerstick Blood Sugar Results: 95 Critical Care Progress Note - Vent Settings MODE:: ASSIST CONTROL - Nutrition Nutrition: Nutrition Category Date Time Status NPO Diet [DIET] Diets 08/12/17 Breakfast Active Renal Diet [DIET] Diets 08/11/17 Dinner Active Assessment/Plan - Assessment and Plan (Free Text) Assessment: s/p CPR /respiratory failure/atrial fibrillation with rapid rate awake alert f/u labs
[2017-08-12] MEDS ORDERED: Sodium Chloride 0.9% 500 ML IV ONE (05:40)
[2017-08-12 05:47] LABS: TROPONIN I 1.28 ng/mL (0.00-0.120)
[2017-08-12 05:49] LABS: ALB/GLOB RATIO 0.9 (1.0-2.1); ALBUMIN 2.9 g/dL (3.5-5.0); CALCIUM 7.9 mg/dl (8.6-10.4); CK-MB 2.95 ng/mL (0.0-3.38)
[2017-08-12 06:02] LABS: ARTERIAL BLOOD GAS HCO3 13.7 mmol/L (21-28); ARTERIAL BLOOD GAS PCO2 27 mm/Hg (35-45); ARTERIAL BLOOD GAS PH 7.24 (7.35-7.45); ARTERIAL BLOOD GAS PO2 131 mm/Hg (80-100); ARTERIAL BLOOD GAS TCO2 12.4 mmol/L (22-28)
--- NOTE | 2017-08-12 07:29 | PCM.PROC ---
Procedures Attestation:: I certify that I have explained the specified Operation(s) or Procedure(s), risks, benefits and reasonable alternatives to the Patient and/or other person responsible. The opportunity was given to ask questions and all questions answered - Intubation Time Out Performed: Yes (confirmed no pulse, full code) Sedative: None Laryngoscope: Matilde (4) ET Tube Size: 8.0 ET Tube Uncuffed: No ET Tube Secured at Depth: 22 at the lips ET Tube Secured Locarion: Lips ET Tube Placement Confirmation: Visualized Passing Through Cords, Breath Sounds Equal Bilaterally, No Breath Sounds Over Epigastrum, Confirmation w/Capnometry Patient Tolerated Procedure: Well Procedure Immediate Complications: None (CXR shows ET tip about 7.7 cm above pamela, called nurse to advance it 2 cm down.) Additional comments: Responded to code blue in ICU, patient unresponsive pulseless, intubated due to cardiac arrest.
--- NOTE | 2017-08-12 07:41 | CP.PCM.PN ---
Subjective - Date & Time of Evaluation Date of Evaluation: 08/12/17 Time of Evaluation: 07:15 - Subjective Subjective: Vascular surgery progres note for Dr. Sowmya Perez, PGY-1 Pt with [employer] 2/2 bradycardia and unresponsive w/CPB performed and subsequent intubation at approximately 5AM on day of evaluation. Pt was awake, alert, following simple commands. Objective - Vital Signs/Intake and Output Vital Signs (last 24 hours): Temp Pulse Resp BP Pulse Ox 98.4 F 129 H 27 H 94/75 L 95 08/12/17 00:00 08/12/17 05:20 08/12/17 05:20 08/12/17 05:14 08/12/17 04:40 Intake and Output: 08/12/17 08/12/17 06:59 18:59 Intake Total 440 Output Total 0 Balance 440 - Medications Medications: Current Medications Dextrose (Dextrose 50% Inj) 0 ml IV STAT PRN; Protocol PRN Reason: Hypoglycemia Protocol Dextrose (Glutose 15) 0 gm PO ONCE PRN; Protocol PRN Reason: Hypoglycemia Protocol Glucagon (Glucagen Diagnostic Kit) 0 mg IM STAT PRN; Protocol PRN Reason: Hypoglycemia Protocol Dextrose (Dextrose 5% In Water 1000 Ml) 1,000 mls @ 0 mls/hr IV .Q0M PRN; Protocol; Per Protocol PRN Reason: Hypoglycemia Protocol Phenylephrine HCl 30 mg/ (Sodium Chloride) 253 mls @ 10.12 mls/hr IV .Q24H PRN ; Protocol; 20 MCG/MIN PRN Reason: TITRATE PER MD ORDER Pantoprazole Sodium (Protonix Inj) 40 mg IVP DAILY CORINA - Labs Labs: 08/12/17 05:07 08/12/17 05:07 PT 17.1 SECONDS (9.7-12.2) H 08/12/17 05:07 INR 1.5 08/12/17 05:07 APTT 42 SECONDS (21-34) H 08/12/17 05:07 - Constitutional Appears: Non-toxic, No Acute Distress - Head Exam Head Exam: ATRAUMATIC, NORMAL INSPECTION, NORMOCEPHALIC - Eye Exam Eye Exam: EOMI, Normal appearance - ENT Exam ENT Exam: Mucous Membranes Moist Additional comments: ET tube in place - Respiratory Exam Respiratory Exam: NORMAL BREATHING PATTERN. absent: Chest Wall Tenderness Additional comments: Right chest wall with permacath in place, no drainage or blood noted. - Cardiovascular Exam Cardiovascular Exam: Tachycardia, +S1, +S2 - GI/Abdominal Exam GI & Abdominal Exam: Soft. absent: Tenderness - Extremities Exam Extremities Exam: Normal Inspection - Neurological Exam Neurological Exam: Alert, Awake Additional comments: intubated - Psychiatric Exam Additional comments: intubated - Skin Skin Exam: Dry, Intact, Normal Color, Warm Assessment and Plan - Assessment and Plan (Free Text) Assessment: 76M POD#1 s/p RIJ permacath placement Plan: Cont HD via permacath Further mgmt as per primary/ICU teams Please re-consult as needed Thank you for this consult Will RICHY attending Ana, PGY-1
--- NOTE | 2017-08-12 09:55 | CP.CCUPN ---
<Sonia Michaud - Last Filed: 08/12/17 12:39> CCU Subjective - Physician Review Subjective (Free Text): 08/12/17 09:55 Patient seen and examined at bedside. Overnight patient became bradycardic and unresponsive. Was in PEA, code blue was called. CPR was initiated, he received 1 epi with ROSC. Now intubated. Alert and awake. Following simple commands. Denies any pain. CCU Objective - Vital Signs / Intake & Output Vital Signs (Last 4 hours): Vital Signs Temp Pulse Resp BP Pulse Ox 08/12/17 09:00 106 H 19 85 L 08/12/17 08:45 123 H 38 H 100 08/12/17 08:00 98.7 F 115 H 24 115/33 L 98 08/12/17 07:30 118 H 26 H 96/37 L 99 08/12/17 06:52 88/57 L 08/12/17 06:43 126 H 27 H 78/56 L 91 L 08/12/17 06:40 132 H 20 99 08/12/17 06:30 128 H 14 08/12/17 06:29 89/26 L 08/12/17 06:10 117 H 25 H 74/40 L 08/12/17 06:00 124 H 27 H Intake and Output (Last 8hrs): Intake & Output 08/11/17 08/12/17 08/12/17 22:59 06:59 14:59 Intake Total 570 670 20 Output Total 0 Balance 570 670 20 Weight 57 kg 55 kg Intake: IV 50 Intake, IV Amount 250 550 0 Left Antecubital 250 550 0 Oral 270 120 20 Output: Urine 0 Urine, Voided 0 Stool 0 Other: # Voids Urine, Voided 0 0 0 # Bowel Movements 0 0 0 - Physical Exam Head: Positive for: Atraumatic, Normocephalic Pupils: Positive for: PERRL Extroacular Muscles: Positive for: EOMI Conjunctiva: Positive for: Normal Mouth: Positive for: Dry, Other (ETT ) Nose (External): Positive for: Atraumatic Neck: Negative for: JVD Respiratory/Chest: Positive for: Decreased Breath Sounds, Rales Cardiovascular: Positive for: Irregular Rhythm, Tachycardic Abdomen: Positive for: Normal Bowel Sounds. Negative for: Distention Upper Extremity: Positive for: Normal Inspection Lower Extremity: Positive for: Normal Inspection Skin: Positive for: Dry Psychiatric: Positive for: Alert - Medications Active Medications: Active Medications Generic Name Dose Route Start Last Admin Trade Name Freq PRN Reason Stop Dose Admin Dextrose 0 ml 08/11/17 17:18 Dextrose 50% Inj IV STAT PRN Hypoglycemia Protocol Protocol Dextrose 0 gm 08/11/17 17:18 Glutose 15 PO ONCE PRN Hypoglycemia Protocol Protocol Glucagon 0 mg 08/11/17 17:18 Glucagen Diagnostic Kit IM STAT PRN Hypoglycemia Protocol Protocol Dextrose 1,000 mls @ 0 mls/hr 08/11/17 17:18 Dextrose 5% In Water 1000 Ml IV .Q0M PRN Hypoglycemia Protocol Protocol Per Protocol Phenylephrine HCl 30 mg/ 253 mls @ 10.12 mls/hr 08/11/17 18:28 Sodium Chloride IV .Q24H PRN TITRATE PER MD ORDER Protocol 20 MCG/MIN Pantoprazole Sodium 40 mg 08/12/17 10:00 Protonix Inj IVP DAILY CORINA - Patient Studies Lab Studies: Lab Studies 08/12/17 08/12/17 08/12/17 Range/Units 09:46 09:44 07:30 WBC (4.8-10.8) K/uL RBC (4.40-5.90) Mil/uL Hgb (12.0-18.0) g/dL Hct (35.0-51.0) % MCV (80.0-94.0) fL MCH (27.0-31.0) pg MCHC (33.0-37.0) g/dL RDW (11.5-14.5) % Plt Count (130-400) K/uL MPV (7.2-11.7) fL Neut % (Auto) (50.0-75.0) % Lymph % (Auto) (20.0-40.0) % Marshall % (Auto) (0.0-10.0) % Eos % (Auto) (0.0-4.0) % Baso % (Auto) (0.0-2.0) % Neut # (Auto) (1.8-7.0) K/uL Lymph # (Auto) (1.0-4.3) K/uL Marshall # (Auto) (0.0-0.8) K/uL Eos # (Auto) (0.0-0.7) K/uL Baso # (Auto) (0.0-0.2) K/uL Neutrophils % (Manual) (50-75) % Lymphocytes % (Manual) (20-40) % Monocytes % (Manual) (0-10) % Platelet Estimate (NORMAL) Poikilocytosis (manual Anisocytosis (manual) PT (9.7-12.2) SECONDS INR APTT (21-34) SECONDS Puncture Site pCO2 (35-45) mm/Hg pO2 (80-100) mm/Hg HCO3 (21-28) mmol/L ABG pH (7.35-7.45) ABG Total CO2 (22-28) mmol/L ABG O2 Saturation (95-98) % ABG Base Excess (-2.0-3.0) mmol/L ABG Hemoglobin (11.7-17.4) g/dL ABG Carboxyhemoglobin (0.5-1.5) % POC ABG HHb (Measured) (0.0-5.0) % ABG Methemoglobin (0.0-3.0) % Pacheco Test ABG Potassium (3.6-5.2) mmol/L VBG pH (7.32-7.43) VBG pCO2 (40-60) mmHg VBG HCO3 mmol/L VBG Total CO2 (22-28) mmol/L VBG O2 Sat (Calc) (40-65) % VBG Base Excess (0.0-2.0) mmol/L VBG Potassium (3.6-5.2) mmol/L A-a O2 Difference mm/Hg Respiratory Index Hgb O2 Saturation (95.0-98.0) % Sodium (132-148) mmol/l Chloride (98-107) mmol/L Glucose (75-110) mg/dl Lactate (0.7-2.1) mmol/L Vent Mode Mechanical Rate FiO2 % Tidal Volume PEEP Crit Value Called To Crit Value Called By Crit Value Read Back Blood Gas Notified Time Potassium (3.6-5.2) mmol/L Carbon Dioxide (22-30) mmol/L Anion Gap (10-20) BUN (9-20) mg/dL Creatinine (0.8-1.5) mg/dL Est GFR ( Amer) Est GFR (Non-Af Amer) POC Glucose (mg/dL) 58 L 52 L 71 (65-110) mg/dL Random Glucose (75-110) mg/dL Calcium (8.6-10.4) mg/dl Phosphorus (2.5-4.5) mg/dL Magnesium (1.6-2.3) mg/dL Total Bilirubin (0.2-1.3) mg/dL AST (17-59) U/L ALT (21-72) U/L Alkaline Phosphatase (38-126) U/L Total Creatine Kinase (55-170) U/L CK-MB (Mass) (0.0-3.38) ng/mL Troponin I (0.00-0.120) ng/mL Total Protein (6.3-8.3) g/dL Albumin (3.5-5.0) g/dL Globulin (2.2-3.9) gm/dL Albumin/Globulin Ratio (1.0-2.1) Procalcitonin (0.19-0.49) NG/ML Arterial Blood Potassium (3.6-5.2) mmol/L Venous Blood Potassium (3.6-5.2) mmol/L 08/12/17 08/12/17 08/12/17 Range/Units 06:17 05:58 05:07 WBC (4.8-10.8) K/uL RBC (4.40-5.90) Mil/uL Hgb (12.0-18.0) g/dL Hct (35.0-51.0) % MCV (80.0-94.0) fL MCH (27.0-31.0) pg MCHC (33.0-37.0) g/dL RDW (11.5-14.5) % Plt Count (130-400) K/uL MPV (7.2-11.7) fL Neut % (Auto) (50.0-75.0) % Lymph % (Auto) (20.0-40.0) % Marshall % (Auto) (0.0-10.0) % Eos % (Auto) (0.0-4.0) % Baso % (Auto) (0.0-2.0) % Neut # (Auto) (1.8-7.0) K/uL Lymph # (Auto) (1.0-4.3) K/uL Marshall # (Auto) (0.0-0.8) K/uL Eos # (Auto) (0.0-0.7) K/uL Baso # (Auto) (0.0-0.2) K/uL Neutrophils % (Manual) (50-75) % Lymphocytes % (Manual) (20-40) % Monocytes % (Manual) (0-10) % Platelet Estimate (NORMAL) Poikilocytosis (manual Anisocytosis (manual) PT 17.1 H (9.7-12.2) SECONDS INR 1.5 APTT 42 H (21-34) SECONDS Puncture Site Femoral pCO2 27 L (35-45) mm/Hg pO2 131 H (80-100) mm/Hg HCO3 13.7 L (21-28) mmol/L ABG pH 7.24 L (7.35-7.45) ABG Total CO2 12.4 L (22-28) mmol/L ABG O2 Saturation 99.0 H (95-98) % ABG Base Excess -14.4 L (-2.0-3.0) mmol/L ABG Hemoglobin 9.0 L (11.7-17.4) g/dL ABG Carboxyhemoglobin 1.8 H (0.5-1.5) % POC ABG HHb (Measured) 1.0 (0.0-5.0) % ABG Methemoglobin 0.7 (0.0-3.0) % Pacheco Test Na ABG Potassium (3.6-5.2) mmol/L VBG pH (7.32-7.43) VBG pCO2 (40-60) mmHg VBG HCO3 mmol/L VBG Total CO2 (22-28) mmol/L VBG O2 Sat (Calc) (40-65) % VBG Base Excess (0.0-2.0) mmol/L VBG Potassium (3.6-5.2) mmol/L A-a O2 Difference 548.0 mm/Hg Respiratory Index 4.2 Hgb O2 Saturation 96.6 (95.0-98.0) % Sodium (132-148) mmol/l Chloride (98-107) mmol/L Glucose (75-110) mg/dl Lactate (0.7-2.1) mmol/L Vent Mode Prvc Mechanical Rate 15 FiO2 100.0 % Tidal Volume 500 PEEP 5 Crit Value Called To Crit Value Called By Crit Value Read Back Blood Gas Notified Time Potassium (3.6-5.2) mmol/L Carbon Dioxide (22-30) mmol/L Anion Gap (10-20) BUN (9-20) mg/dL Creatinine (0.8-1.5) mg/dL Est GFR ( Amer) Est GFR (Non-Af Amer) POC Glucose (mg/dL) 84 (65-110) mg/dL Random Glucose (75-110) mg/dL Calcium (8.6-10.4) mg/dl Phosphorus (2.5-4.5) mg/dL Magnesium (1.6-2.3) mg/dL Total Bilirubin (0.2-1.3) mg/dL AST (17-59) U/L ALT (21-72) U/L Alkaline Phosphatase (38-126) U/L Total Creatine Kinase (55-170) U/L CK-MB (Mass) (0.0-3.38) ng/mL Troponin I (0.00-0.120) ng/mL Total Protein (6.3-8.3) g/dL Albumin (3.5-5.0) g/dL Globulin (2.2-3.9) gm/dL Albumin/Globulin Ratio (1.0-2.1) Procalcitonin (0.19-0.49) NG/ML Arterial Blood Potassium (3.6-5.2) mmol/L Venous Blood Potassium (3.6-5.2) mmol/L 08/12/17 08/12/17 08/12/17 Range/Units 05:07 05:07 00:17 WBC 14.6 H (4.8-10.8) K/uL RBC 3.57 L (4.40-5.90) Mil/uL Hgb 10.6 L (12.0-18.0) g/dL Hct 33.7 L (35.0-51.0) % MCV 94.3 H D (80.0-94.0) fL MCH 29.6 (27.0-31.0) pg MCHC 31.4 L (33.0-37.0) g/dL RDW 19.8 H (11.5-14.5) % Plt Count 107 L (130-400) K/uL MPV 10.6 (7.2-11.7) fL Neut % (Auto) 82.3 H (50.0-75.0) % Lymph % (Auto) 15.0 L (20.0-40.0) % Marshall % (Auto) 2.2 (0.0-10.0) % Eos % (Auto) 0.0 (0.0-4.0) % Baso % (Auto) 0.5 (0.0-2.0) % Neut # (Auto) 12.0 H (1.8-7.0) K/uL Lymph # (Auto) 2.2 (1.0-4.3) K/uL Marshall # (Auto) 0.3 (0.0-0.8) K/uL Eos # (Auto) 0.0 (0.0-0.7) K/uL Baso # (Auto) 0.1 (0.0-0.2) K/uL Neutrophils % (Manual) (50-75) % Lymphocytes % (Manual) (20-40) % Monocytes % (Manual) (0-10) % Platelet Estimate (NORMAL) Poikilocytosis (manual Anisocytosis (manual) PT (9.7-12.2) SECONDS INR APTT (21-34) SECONDS Puncture Site pCO2 (35-45) mm/Hg pO2 (80-100) mm/Hg HCO3 (21-28) mmol/L ABG pH (7.35-7.45) ABG Total CO2 (22-28) mmol/L ABG O2 Saturation (95-98) % ABG Base Excess (-2.0-3.0) mmol/L ABG Hemoglobin (11.7-17.4) g/dL ABG Carboxyhemoglobin (0.5-1.5) % POC ABG HHb (Measured) (0.0-5.0) % ABG Methemoglobin (0.0-3.0) % Pacheco Test ABG Potassium (3.6-5.2) mmol/L VBG pH (7.32-7.43) VBG pCO2 (40-60) mmHg VBG HCO3 mmol/L VBG Total CO2 (22-28) mmol/L VBG O2 Sat (Calc) (40-65) % VBG Base Excess (0.0-2.0) mmol/L VBG Potassium (3.6-5.2) mmol/L A-a O2 Difference mm/Hg Respiratory Index Hgb O2 Saturation (95.0-98.0) % Sodium 140 142 (132-148) mmol/l Chloride 99 97 L (98-107) mmol/L Glucose (75-110) mg/dl Lactate (0.7-2.1) mmol/L Vent Mode Mechanical Rate FiO2 % Tidal Volume PEEP Crit Value Called To Crit Value Called By Crit Value Read Back Blood Gas Notified Time Potassium 4.8 3.7 (3.6-5.2) mmol/L Carbon Dioxide 14 L 28 (22-30) mmol/L Anion Gap 32 H 21 H (10-20) BUN 32 H 22 H (9-20) mg/dL Creatinine 3.3 H 2.1 H (0.8-1.5) mg/dL Est GFR ( Amer) 22 37 Est GFR (Non-Af Amer) 18 31 POC Glucose (mg/dL) (65-110) mg/dL Random Glucose 108 107 (75-110) mg/dL Calcium 7.9 L 7.9 L (8.6-10.4) mg/dl Phosphorus 7.0 H (2.5-4.5) mg/dL Magnesium 2.2 (1.6-2.3) mg/dL Total Bilirubin 1.6 H (0.2-1.3) mg/dL AST 883 H D (17-59) U/L ALT 235 H D (21-72) U/L Alkaline Phosphatase 121 (38-126) U/L Total Creatine Kinase 234 H (55-170) U/L CK-MB (Mass) 2.95 (0.0-3.38) ng/mL Troponin I 1.2800 H* (0.00-0.120) ng/mL Total Protein 6.3 (6.3-8.3) g/dL Albumin 2.9 L (3.5-5.0) g/dL Globulin 3.4 (2.2-3.9) gm/dL Albumin/Globulin Ratio 0.9 L (1.0-2.1) Procalcitonin (0.19-0.49) NG/ML Arterial Blood Potassium (3.6-5.2) mmol/L Venous Blood Potassium (3.6-5.2) mmol/L 08/11/17 08/11/17 08/11/17 Range/Units 23:40 21:38 19:35 WBC 11.1 H (4.8-10.8) K/uL RBC 3.44 L (4.40-5.90) Mil/uL Hgb 10.3 L D (12.0-18.0) g/dL Hct 31.3 L (35.0-51.0) % MCV 90.8 (80.0-94.0) fL MCH 29.9 (27.0-31.0) pg MCHC 33.0 (33.0-37.0) g/dL RDW 19.3 H (11.5-14.5) % Plt Count 101 L D (130-400) K/uL MPV 10.0 (7.2-11.7) fL Neut % (Auto) 84.4 H (50.0-75.0) % Lymph % (Auto) 9.3 L (20.0-40.0) % Marshall % (Auto) 5.1 (0.0-10.0) % Eos % (Auto) 0.0 (0.0-4.0) % Baso % (Auto) 1.2 (0.0-2.0) % Neut # (Auto) 9.4 H (1.8-7.0) K/uL Lymph # (Auto) 1.0 (1.0-4.3) K/uL Marshall # (Auto) 0.6 (0.0-0.8) K/uL Eos # (Auto) 0.0 (0.0-0.7) K/uL Baso # (Auto) 0.1 (0.0-0.2) K/uL Neutrophils % (Manual) 90 H (50-75) % Lymphocytes % (Manual) 6 L (20-40) % Monocytes % (Manual) 4 (0-10) % Platelet Estimate Slightly decreased L (NORMAL) Poikilocytosis (manual Slight Anisocytosis (manual) Slight PT (9.7-12.2) SECONDS INR APTT (21-34) SECONDS Puncture Site pCO2 (35-45) mm/Hg pO2 26 L (80-100) mm/Hg HCO3 (21-28) mmol/L ABG pH (7.35-7.45) ABG Total CO2 (22-28) mmol/L ABG O2 Saturation (95-98) % ABG Base Excess (-2.0-3.0) mmol/L ABG Hemoglobin (11.7-17.4) g/dL ABG Carboxyhemoglobin (0.5-1.5) % POC ABG HHb (Measured) (0.0-5.0) % ABG Methemoglobin (0.0-3.0) % Pacheco Test ABG Potassium (3.6-5.2) mmol/L VBG pH 7.34 (7.32-7.43) VBG pCO2 64 H (40-60) mmHg VBG HCO3 28.5 mmol/L VBG Total CO2 36.5 H (22-28) mmol/L VBG O2 Sat (Calc) 40.8 (40-65) % VBG Base Excess 6.5 H (0.0-2.0) mmol/L VBG Potassium 1.8 L* (3.6-5.2) mmol/L A-a O2 Difference mm/Hg Respiratory Index Hgb O2 Saturation (95.0-98.0) % Sodium 136.0 (132-148) mmol/l Chloride 97.0 L (98-107) mmol/L Glucose 95 (75-110) mg/dl Lactate 0.9 (0.7-2.1) mmol/L Vent Mode Mechanical Rate FiO2 % Tidal Volume PEEP Crit Value Called To [facility] nurse michelle Crit Value Called By Bette rowe Crit Value Read Back Y Blood Gas Notified Time 2344 Potassium (3.6-5.2) mmol/L Carbon Dioxide (22-30) mmol/L Anion Gap (10-20) BUN (9-20) mg/dL Creatinine (0.8-1.5) mg/dL Est GFR ( Amer) Est GFR (Non-Af Amer) POC Glucose (mg/dL) 95 (65-110) mg/dL Random Glucose (75-110) mg/dL Calcium (8.6-10.4) mg/dl Phosphorus (2.5-4.5) mg/dL Magnesium (1.6-2.3) mg/dL Total Bilirubin (0.2-1.3) mg/dL AST (17-59) U/L ALT (21-72) U/L Alkaline Phosphatase (38-126) U/L Total Creatine Kinase (55-170) U/L CK-MB (Mass) (0.0-3.38) ng/mL Troponin I (0.00-0.120) ng/mL Total Protein (6.3-8.3) g/dL Albumin (3.5-5.0) g/dL Globulin (2.2-3.9) gm/dL Albumin/Globulin Ratio (1.0-2.1) Procalcitonin (0.19-0.49) NG/ML Arterial Blood Potassium (3.6-5.2) mmol/L Venous Blood Potassium 1.8 L* (3.6-5.2) mmol/L 08/11/17 08/11/17 08/11/17 Range/Units 19:35 19:35 19:10 WBC (4.8-10.8) K/uL RBC (4.40-5.90) Mil/uL Hgb (12.0-18.0) g/dL Hct (35.0-51.0) % MCV (80.0-94.0) fL MCH (27.0-31.0) pg MCHC (33.0-37.0) g/dL RDW (11.5-14.5) % Plt Count (130-400) K/uL MPV (7.2-11.7) fL Neut % (Auto) (50.0-75.0) % Lymph % (Auto) (20.0-40.0) % Marshall % (Auto) (0.0-10.0) % Eos % (Auto) (0.0-4.0) % Baso % (Auto) (0.0-2.0) % Neut # (Auto) (1.8-7.0) K/uL Lymph # (Auto) (1.0-4.3) K/uL Marshall # (Auto) (0.0-0.8) K/uL Eos # (Auto) (0.0-0.7) K/uL Baso # (Auto) (0.0-0.2) K/uL Neutrophils % (Manual) (50-75) % Lymphocytes % (Manual) (20-40) % Monocytes % (Manual) (0-10) % Platelet Estimate (NORMAL) Poikilocytosis (manual Anisocytosis (manual) PT (9.7-12.2) SECONDS INR APTT (21-34) SECONDS Puncture Site Rba pCO2 18 L* (35-45) mm/Hg pO2 68 L (80-100) mm/Hg HCO3 17.2 L (21-28) mmol/L ABG pH 7.43 (7.35-7.45) ABG Total CO2 12.5 L (22-28) mmol/L ABG O2 Saturation 94.6 L (95-98) % ABG Base Excess -9.8 L (-2.0-3.0) mmol/L ABG Hemoglobin (11.7-17.4) g/dL ABG Carboxyhemoglobin (0.5-1.5) % POC ABG HHb (Measured) (0.0-5.0) % ABG Methemoglobin (0.0-3.0) % Pacheco Test Na ABG Potassium 4.8 (3.6-5.2) mmol/L VBG pH (7.32-7.43) VBG pCO2 (40-60) mmHg VBG HCO3 mmol/L VBG Total CO2 (22-28) mmol/L VBG O2 Sat (Calc) (40-65) % VBG Base Excess (0.0-2.0) mmol/L VBG Potassium (3.6-5.2) mmol/L A-a O2 Difference 230.0 mm/Hg Respiratory Index 3.4 Hgb O2 Saturation (95.0-98.0) % Sodium 139 135.0 (132-148) mmol/l Chloride 101 102.0 (98-107) mmol/L Glucose 72 L (75-110) mg/dl Lactate 6.7 H* (0.7-2.1) mmol/L Vent Mode Mechanical Rate FiO2 45.0 % Tidal Volume PEEP Crit Value Called To Dr. duffy Crit Value Called By Bette rowe Crit Value Read Back Y Blood Gas Notified Time 1915 Potassium 5.2 (3.6-5.2) mmol/L Carbon Dioxide 12 L (22-30) mmol/L Anion Gap 31 H (10-20) BUN 69 H (9-20) mg/dL Creatinine 5.3 H (0.8-1.5) mg/dL Est GFR ( Amer) 13 Est GFR (Non-Af Amer) 11 POC Glucose (mg/dL) (65-110) mg/dL Random Glucose 76 (75-110) mg/dL Calcium 8.1 L (8.6-10.4) mg/dl Phosphorus 7.7 H (2.5-4.5) mg/dL Magnesium 2.0 (1.6-2.3) mg/dL Total Bilirubin 1.3 (0.2-1.3) mg/dL AST 313 H (17-59) U/L ALT 91 H (21-72) U/L Alkaline Phosphatase 108 (38-126) U/L Total Creatine Kinase (55-170) U/L CK-MB (Mass) (0.0-3.38) ng/mL Troponin I 1.5600 H* (0.00-0.120) ng/mL Total Protein 6.2 L (6.3-8.3) g/dL Albumin 2.8 L D (3.5-5.0) g/dL Globulin 3.4 (2.2-3.9) gm/dL Albumin/Globulin Ratio 0.8 L (1.0-2.1) Procalcitonin 6.73 H (0.19-0.49) NG/ML Arterial Blood Potassium 4.8 (3.6-5.2) mmol/L Venous Blood Potassium (3.6-5.2) mmol/L 08/11/17 08/11/17 08/11/17 Range/Units 17:29 16:24 14:47 WBC (4.8-10.8) K/uL RBC (4.40-5.90) Mil/uL Hgb (12.0-18.0) g/dL Hct (35.0-51.0) % MCV (80.0-94.0) fL MCH (27.0-31.0) pg MCHC (33.0-37.0) g/dL RDW (11.5-14.5) % Plt Count (130-400) K/uL MPV (7.2-11.7) fL Neut % (Auto) (50.0-75.0) % Lymph % (Auto) (20.0-40.0) % Marshall % (Auto) (0.0-10.0) % Eos % (Auto) (0.0-4.0) % Baso % (Auto) (0.0-2.0) % Neut # (Auto) (1.8-7.0) K/uL Lymph # (Auto) (1.0-4.3) K/uL Marshall # (Auto) (0.0-0.8) K/uL Eos # (Auto) (0.0-0.7) K/uL Baso # (Auto) (0.0-0.2) K/uL Neutrophils % (Manual) (50-75) % Lymphocytes % (Manual) (20-40) % Monocytes % (Manual) (0-10) % Platelet Estimate (NORMAL) Poikilocytosis (manual Anisocytosis (manual) PT (9.7-12.2) SECONDS INR APTT (21-34) SECONDS Puncture Site pCO2 (35-45) mm/Hg pO2 (80-100) mm/Hg HCO3 (21-28) mmol/L ABG pH (7.35-7.45) ABG Total CO2 (22-28) mmol/L ABG O2 Saturation (95-98) % ABG Base Excess (-2.0-3.0) mmol/L ABG Hemoglobin (11.7-17.4) g/dL ABG Carboxyhemoglobin (0.5-1.5) % POC ABG HHb (Measured) (0.0-5.0) % ABG Methemoglobin (0.0-3.0) % Pacheco Test ABG Potassium (3.6-5.2) mmol/L VBG pH (7.32-7.43) VBG pCO2 (40-60) mmHg VBG HCO3 mmol/L VBG Total CO2 (22-28) mmol/L VBG O2 Sat (Calc) (40-65) % VBG Base Excess (0.0-2.0) mmol/L VBG Potassium (3.6-5.2) mmol/L A-a O2 Difference mm/Hg Respiratory Index Hgb O2 Saturation (95.0-98.0) % Sodium (132-148) mmol/l Chloride (98-107) mmol/L Glucose (75-110) mg/dl Lactate (0.7-2.1) mmol/L Vent Mode Mechanical Rate FiO2 % Tidal Volume PEEP Crit Value Called To Crit Value Called By Crit Value Read Back Blood Gas Notified Time Potassium (3.6-5.2) mmol/L Carbon Dioxide (22-30) mmol/L Anion Gap (10-20) BUN (9-20) mg/dL Creatinine (0.8-1.5) mg/dL Est GFR ( Amer) Est GFR (Non-Af Amer) POC Glucose (mg/dL) 102 126 H 189 H (65-110) mg/dL Random Glucose (75-110) mg/dL Calcium (8.6-10.4) mg/dl Phosphorus (2.5-4.5) mg/dL Magnesium (1.6-2.3) mg/dL Total Bilirubin (0.2-1.3) mg/dL AST (17-59) U/L ALT (21-72) U/L Alkaline Phosphatase (38-126) U/L Total Creatine Kinase (55-170) U/L CK-MB (Mass) (0.0-3.38) ng/mL Troponin I (0.00-0.120) ng/mL Total Protein (6.3-8.3) g/dL Albumin (3.5-5.0) g/dL Globulin (2.2-3.9) gm/dL Albumin/Globulin Ratio (1.0-2.1) Procalcitonin (0.19-0.49) NG/ML Arterial Blood Potassium (3.6-5.2) mmol/L Venous Blood Potassium (3.6-5.2) mmol/L 08/11/17 Range/Units 11:37 WBC (4.8-10.8) K/uL RBC (4.40-5.90) Mil/uL Hgb (12.0-18.0) g/dL Hct (35.0-51.0) % MCV (80.0-94.0) fL MCH (27.0-31.0) pg MCHC (33.0-37.0) g/dL RDW (11.5-14.5) % Plt Count (130-400) K/uL MPV (7.2-11.7) fL Neut % (Auto) (50.0-75.0) % Lymph % (Auto) (20.0-40.0) % Marshall % (Auto) (0.0-10.0) % Eos % (Auto) (0.0-4.0) % Baso % (Auto) (0.0-2.0) % Neut # (Auto) (1.8-7.0) K/uL Lymph # (Auto) (1.0-4.3) K/uL Marshall # (Auto) (0.0-0.8) K/uL Eos # (Auto) (0.0-0.7) K/uL Baso # (Auto) (0.0-0.2) K/uL Neutrophils % (Manual) (50-75) % Lymphocytes % (Manual) (20-40) % Monocytes % (Manual) (0-10) % Platelet Estimate (NORMAL) Poikilocytosis (manual Anisocytosis (manual) PT (9.7-12.2) SECONDS INR APTT (21-34) SECONDS Puncture Site pCO2 (35-45) mm/Hg pO2 (80-100) mm/Hg HCO3 (21-28) mmol/L ABG pH (7.35-7.45) ABG Total CO2 (22-28) mmol/L ABG O2 Saturation (95-98) % ABG Base Excess (-2.0-3.0) mmol/L ABG Hemoglobin (11.7-17.4) g/dL ABG Carboxyhemoglobin (0.5-1.5) % POC ABG HHb (Measured) (0.0-5.0) % ABG Methemoglobin (0.0-3.0) % [place]co Test ABG Potassium (3.6-5.2) mmol/L VBG pH (7.32-7.43) VBG pCO2 (40-60) mmHg VBG HCO3 mmol/L VBG Total CO2 (22-28) mmol/L VBG O2 Sat (Calc) (40-65) % VBG Base Excess (0.0-2.0) mmol/L VBG Potassium (3.6-5.2) mmol/L A-a O2 Difference mm/Hg Respiratory Index Hgb O2 Saturation (95.0-98.0) % Sodium (132-148) mmol/l Chloride (98-107) mmol/L Glucose (75-110) mg/dl Lactate (0.7-2.1) mmol/L Vent Mode Mechanical Rate FiO2 % Tidal Volume PEEP Crit Value Called To Crit Value Called By Crit Value Read Back Blood Gas Notified Time Potassium (3.6-5.2) mmol/L Carbon Dioxide (22-30) mmol/L Anion Gap (10-20) BUN (9-20) mg/dL Creatinine (0.8-1.5) mg/dL Est GFR ( Amer) Est GFR (Non-Af Amer) POC Glucose (mg/dL) 260 H (65-110) mg/dL Random Glucose (75-110) mg/dL Calcium (8.6-10.4) mg/dl Phosphorus (2.5-4.5) mg/dL Magnesium (1.6-2.3) mg/dL Total Bilirubin (0.2-1.3) mg/dL AST (17-59) U/L ALT (21-72) U/L Alkaline Phosphatase (38-126) U/L Total Creatine Kinase (55-170) U/L CK-MB (Mass) (0.0-3.38) ng/mL Troponin I (0.00-0.120) ng/mL Total Protein (6.3-8.3) g/dL Albumin (3.5-5.0) g/dL Globulin (2.2-3.9) gm/dL Albumin/Globulin Ratio (1.0-2.1) Procalcitonin (0.19-0.49) NG/ML Arterial Blood Potassium (3.6-5.2) mmol/L Venous Blood Potassium (3.6-5.2) mmol/L Laboratory Results - last 24 hr 08/11/17 08/11/17 08/11/17 11:37 14:47 16:24 WBC RBC Hgb Hct MCV MCH MCHC RDW Plt Count MPV Neut % (Auto) Lymph % (Auto) Marshall % (Auto) Eos % (Auto) Baso % (Auto) Neut # (Auto) Lymph # (Auto) Marshall # (Auto) Eos # (Auto) Baso # (Auto) Neutrophils % (Manual) Lymphocytes % (Manual) Monocytes % (Manual) Platelet Estimate Poikilocytosis (manual Anisocytosis (manual) PT INR APTT Puncture Site pCO2 pO2 HCO3 ABG pH ABG Total CO2 ABG O2 Saturation ABG Base Excess ABG Hemoglobin ABG Carboxyhemoglobin POC ABG HHb (Measured) ABG Methemoglobin [place] Test ABG Potassium VBG pH VBG pCO2 VBG HCO3 VBG Total CO2 VBG O2 Sat (Calc) VBG Base Excess VBG Potassium A-a O2 Difference Respiratory Index Hgb O2 Saturation Sodium Chloride Glucose Lactate Vent Mode Mechanical Rate FiO2 Tidal Volume PEEP Crit Value Called To Crit Value Called By Crit Value Read Back Blood Gas Notified Time Potassium Carbon Dioxide Anion Gap BUN Creatinine Est GFR ( Amer) Est GFR (Non-Af Amer) POC Glucose (mg/dL) 260 H 189 H 126 H Random Glucose Calcium Phosphorus Magnesium Total Bilirubin AST ALT Alkaline Phosphatase Total Creatine Kinase CK-MB (Mass) Troponin I Total Protein Albumin Globulin Albumin/Globulin Ratio Procalcitonin Arterial Blood Potassium Venous Blood Potassium 08/11/17 08/11/17 08/11/17 17:29 19:10 19:35 WBC RBC Hgb Hct MCV MCH MCHC RDW Plt Count MPV Neut % (Auto) Lymph % (Auto) Marshall % (Auto) Eos % (Auto) Baso % (Auto) Neut # (Auto) Lymph # (Auto) Marshall # (Auto) Eos # (Auto) Baso # (Auto) Neutrophils % (Manual) Lymphocytes % (Manual) Monocytes % (Manual) Platelet Estimate Poikilocytosis (manual Anisocytosis (manual) PT INR APTT Puncture Site Rba pCO2 18 L* pO2 68 L HCO3 17.2 L ABG pH 7.43 ABG Total CO2 12.5 L ABG O2 Saturation 94.6 L ABG Base Excess -9.8 L ABG Hemoglobin ABG Carboxyhemoglobin POC ABG HHb (Measured) ABG Methemoglobin [place] Test Na ABG Potassium 4.8 VBG pH VBG pCO2 VBG HCO3 VBG Total CO2 VBG O2 Sat (Calc) VBG Base Excess VBG Potassium A-a O2 Difference 230.0 Respiratory Index 3.4 Hgb O2 Saturation Sodium 135.0 139 Chloride 102.0 101 Glucose 72 L Lactate 6.7 H* Vent Mode Mechanical Rate FiO2 45.0 Tidal Volume PEEP Crit Value Called To Dr. duffy Crit Value Called By Bette rowe Crit Value Read Back Y Blood Gas Notified Time 1915 Potassium 5.2 Carbon Dioxide 12 L Anion Gap 31 H BUN 69 H Creatinine 5.3 H Est GFR ( Amer) 13 Est GFR (Non-Af Amer) 11 POC Glucose (mg/dL) 102 Random Glucose 76 Calcium 8.1 L Phosphorus 7.7 H Magnesium 2.0 Total Bilirubin 1.3 AST 313 H ALT 91 H Alkaline Phosphatase 108 Total Creatine Kinase CK-MB (Mass) Troponin I 1.5600 H* Total Protein 6.2 L Albumin 2.8 L D Globulin 3.4 Albumin/Globulin Ratio 0.8 L Procalcitonin Arterial Blood Potassium 4.8 Venous Blood Potassium 08/11/17 08/11/17 08/11/17 19:35 19:35 21:38 WBC 11.1 H RBC 3.44 L Hgb 10.3 L D Hct 31.3 L MCV 90.8 MCH 29.9 MCHC 33.0 RDW 19.3 H Plt Count 101 L D MPV 10.0 Neut % (Auto) 84.4 H Lymph % (Auto) 9.3 L Marshall % (Auto) 5.1 Eos % (Auto) 0.0 Baso % (Auto) 1.2 Neut # (Auto) 9.4 H Lymph # (Auto) 1.0 Marshall # (Auto) 0.6 Eos # (Auto) 0.0 Baso # (Auto) 0.1 Neutrophils % (Manual) 90 H Lymphocytes % (Manual) 6 L Monocytes % (Manual) 4 Platelet Estimate Slightly decreased L Poikilocytosis (manual Slight Anisocytosis (manual) Slight PT INR APTT Puncture Site pCO2 pO2 HCO3 ABG pH ABG Total CO2 ABG O2 Saturation ABG Base Excess ABG Hemoglobin ABG Carboxyhemoglobin POC ABG HHb (Measured) ABG Methemoglobin [place] Test ABG Potassium VBG pH VBG pCO2 VBG HCO3 VBG Total CO2 VBG O2 Sat (Calc) VBG Base Excess VBG Potassium A-a O2 Difference Respiratory Index Hgb O2 Saturation Sodium Chloride Glucose Lactate Vent Mode Mechanical Rate FiO2 Tidal Volume PEEP Crit Value Called To Crit Value Called By Crit Value Read Back Blood Gas Notified Time Potassium Carbon Dioxide Anion Gap BUN Creatinine Est GFR ( Amer) Est GFR (Non-Af Amer) POC Glucose (mg/dL) 95 Random Glucose Calcium Phosphorus Magnesium Total Bilirubin AST ALT Alkaline Phosphatase Total Creatine Kinase CK-MB (Mass) Troponin I Total Protein Albumin Globulin Albumin/Globulin Ratio Procalcitonin 6.73 H Arterial Blood Potassium Venous Blood Potassium 08/11/17 08/12/17 08/12/17 23:40 00:17 05:07 WBC 14.6 H RBC 3.57 L Hgb 10.6 L Hct 33.7 L MCV 94.3 H D MCH 29.6 MCHC 31.4 L RDW 19.8 H Plt Count 107 L MPV 10.6 Neut % (Auto) 82.3 H Lymph % (Auto) 15.0 L Marshall % (Auto) 2.2 Eos % (Auto) 0.0 Baso % (Auto) 0.5 Neut # (Auto) 12.0 H Lymph # (Auto) 2.2 Marshall # (Auto) 0.3 Eos # (Auto) 0.0 Baso # (Auto) 0.1 Neutrophils % (Manual) Lymphocytes % (Manual) Monocytes % (Manual) Platelet Estimate Poikilocytosis (manual Anisocytosis (manual) PT INR APTT Puncture Site pCO2 pO2 26 L HCO3 ABG pH ABG Total CO2 ABG O2 Saturation ABG Base Excess ABG Hemoglobin ABG Carboxyhemoglobin POC ABG HHb (Measured) ABG Methemoglobin [place] Test ABG Potassium VBG pH 7.34 VBG pCO2 64 H VBG HCO3 28.5 VBG Total CO2 36.5 H VBG O2 Sat (Calc) 40.8 VBG Base Excess 6.5 H VBG Potassium 1.8 L* A-a O2 Difference Respiratory Index Hgb O2 Saturation Sodium 136.0 142 Chloride 97.0 L 97 L Glucose 95 Lactate 0.9 Vent Mode Mechanical Rate FiO2 Tidal Volume PEEP Crit Value Called To [facility] nurse michelle Crit Value Called By Bette rowe Crit Value Read Back Y Blood Gas Notified Time 2344 Potassium 3.7 Carbon Dioxide 28 Anion Gap 21 H BUN 22 H Creatinine 2.1 H Est GFR ( Amer) 37 Est GFR (Non-Af Amer) 31 POC Glucose (mg/dL) Random Glucose 107 Calcium 7.9 L Phosphorus Magnesium Total Bilirubin AST ALT Alkaline Phosphatase Total Creatine Kinase CK-MB (Mass) Troponin I Total Protein Albumin Globulin Albumin/Globulin Ratio Procalcitonin Arterial Blood Potassium Venous Blood Potassium 1.8 L* 08/12/17 08/12/17 08/12/17 05:07 05:07 05:58 WBC RBC Hgb Hct MCV MCH MCHC RDW Plt Count MPV Neut % (Auto) Lymph % (Auto) Marshall % (Auto) Eos % (Auto) Baso % (Auto) Neut # (Auto) Lymph # (Auto) Marshall # (Auto) Eos # (Auto) Baso # (Auto) Neutrophils % (Manual) Lymphocytes % (Manual) Monocytes % (Manual) Platelet Estimate Poikilocytosis (manual Anisocytosis (manual) PT 17.1 H INR 1.5 APTT 42 H Puncture Site Femoral pCO2 27 L pO2 131 H HCO3 13.7 L ABG pH 7.24 L ABG Total CO2 12.4 L ABG O2 Saturation 99.0 H ABG Base Excess -14.4 L ABG Hemoglobin 9.0 L ABG Carboxyhemoglobin 1.8 H POC ABG HHb (Measured) 1.0 ABG Methemoglobin 0.7 [place] Test Na ABG Potassium VBG pH VBG pCO2 VBG HCO3 VBG Total CO2 VBG O2 Sat (Calc) VBG Base Excess VBG Potassium A-a O2 Difference 548.0 Respiratory Index 4.2 Hgb O2 Saturation 96.6 Sodium 140 Chloride 99 Glucose Lactate Vent Mode Prvc Mechanical Rate 15 FiO2 100.0 Tidal Volume 500 PEEP 5 Crit Value Called To Crit Value Called By Crit Value Read Back Blood Gas Notified Time Potassium 4.8 Carbon Dioxide 14 L Anion Gap 32 H BUN 32 H Creatinine 3.3 H Est GFR ( Amer) 22 Est GFR (Non-Af Amer) 18 POC Glucose (mg/dL) Random Glucose 108 Calcium 7.9 L Phosphorus 7.0 H Magnesium 2.2 Total Bilirubin 1.6 H AST 883 H D ALT 235 H D Alkaline Phosphatase 121 Total Creatine Kinase 234 H CK-MB (Mass) 2.95 Troponin I 1.2800 H* Total Protein 6.3 Albumin 2.9 L Globulin 3.4 Albumin/Globulin Ratio 0.9 L Procalcitonin Arterial Blood Potassium Venous Blood Potassium 08/12/17 08/12/17 08/12/17 06:17 07:30 09:44 WBC RBC Hgb Hct MCV MCH MCHC RDW Plt Count MPV Neut % (Auto) Lymph % (Auto) Marshall % (Auto) Eos % (Auto) Baso % (Auto) Neut # (Auto) Lymph # (Auto) Marshall # (Auto) Eos # (Auto) Baso # (Auto) Neutrophils % (Manual) Lymphocytes % (Manual) Monocytes % (Manual) Platelet Estimate Poikilocytosis (manual Anisocytosis (manual) PT INR APTT Puncture Site pCO2 pO2 HCO3 ABG pH ABG Total CO2 ABG O2 Saturation ABG Base Excess ABG Hemoglobin ABG Carboxyhemoglobin POC ABG HHb (Measured) ABG Methemoglobin [place] Test ABG Potassium VBG pH VBG pCO2 VBG HCO3 VBG Total CO2 VBG O2 Sat (Calc) VBG Base Excess VBG Potassium A-a O2 Difference Respiratory Index Hgb O2 Saturation Sodium Chloride Glucose Lactate Vent Mode Mechanical Rate FiO2 Tidal Volume PEEP Crit Value Called To Crit Value Called By Crit Value Read Back Blood Gas Notified Time Potassium Carbon Dioxide Anion Gap BUN Creatinine Est GFR ( Amer) Est GFR (Non-Af Amer) POC Glucose (mg/dL) 84 71 52 L Random Glucose Calcium Phosphorus Magnesium Total Bilirubin AST ALT Alkaline Phosphatase Total Creatine Kinase CK-MB (Mass) Troponin I Total Protein Albumin Globulin Albumin/Globulin Ratio Procalcitonin Arterial Blood Potassium Venous Blood Potassium 08/12/17 09:46 WBC RBC Hgb Hct MCV MCH MCHC RDW Plt Count MPV Neut % (Auto) Lymph % (Auto) Marshall % (Auto) Eos % (Auto) Baso % (Auto) Neut # (Auto) Lymph # (Auto) Marshall # (Auto) Eos # (Auto) Baso # (Auto) Neutrophils % (Manual) Lymphocytes % (Manual) Monocytes % (Manual) Platelet Estimate Poikilocytosis (manual Anisocytosis (manual) PT INR APTT Puncture Site pCO2 pO2 HCO3 ABG pH ABG Total CO2 ABG O2 Saturation ABG Base Excess ABG Hemoglobin ABG Carboxyhemoglobin POC ABG HHb (Measured) ABG Methemoglobin [place] Test ABG Potassium VBG pH VBG pCO2 VBG HCO3 VBG Total CO2 VBG O2 Sat (Calc) VBG Base Excess VBG Potassium A-a O2 Difference Respiratory Index Hgb O2 Saturation Sodium Chloride Glucose Lactate Vent Mode Mechanical Rate FiO2 Tidal Volume PEEP Crit Value Called To Crit Value Called By Crit Value Read Back Blood Gas Notified Time Potassium Carbon Dioxide Anion Gap BUN Creatinine Est GFR ( Amer) Est GFR (Non-Af Amer) POC Glucose (mg/dL) 58 L Random Glucose Calcium Phosphorus Magnesium Total Bilirubin AST ALT Alkaline Phosphatase Total Creatine Kinase CK-MB (Mass) Troponin I Total Protein Albumin Globulin Albumin/Globulin Ratio Procalcitonin Arterial Blood Potassium Venous Blood Potassium Fingerstick Blood Sugar Results: 84 Critical Care Progress Note - Nutrition Nutrition: Nutrition Category Date Time Status NPO Diet [DIET] Diets 08/12/17 Breakfast Active Assessment/Plan - Assessment and Plan (Free Text) Assessment: Patient is a 76 year old male with past medical history of ESRD on HD, CAD s/p CABG, Ischemic cardiomyopathy on Life Vest, Afib not on AC 2/2 history of GI bleed, Diabetes Mellitus, COPD presented to the Hospital for shortness of breath and weakness. Found to be hypotensive s/p permacath placement. Neurology: -Patient is AAOx3 -Intubated, not sedated -Ativan 1mg Q6H prn agitation -History of prostate CA with metastasis -Palliative care on consult to establish goals of care Cardiology: -Patient with ischemic cardiomyopathy on life vest -Last echo 06/2017 showed LVEF 30% -Patient is Well known to Dr Potts -Troponins trending down -S/P Code blue with ROSC, now intubated -Patient with hypotension, Started on Phenylepherine drip -History of atrial fibrillation, not on anticoagulation 2/2 GI bleed -Last night went into afib with RVR, recieved Digoxin 0.25mg x 2, Lopressor 5mg x 1 -On Cardizem and Toprol XL at home, will hold these medications at this time Respiratory: -Intubated, not sedated -ABG: pH 7.24, Hco3 13.7, PCO2 27, PO2 131 - acidotic, will repeat ABG STAT -CXR 08/11: Mod. venous congestion. Small left pleural effusion. Bibasilar airspace opacities. Biapical pleural thickening with upper lobe granulomatous changes -F/U urine legionella, urine strep pneumonia, mycoplasma GI: -Tube feeds started -Director Of Cath Lab referral placed for tube feed goals -Protonix 40mg IVP -AST/ALT elevated, possible due to liver mets vs decreased perfusion -Will continue to monitor at this time Renal: -S/P right permacath placement (08/11/17), AV fistula is malfunctioning -Dr Chiu on consult for declot, will hold off as patient is unstable at this time -Hemodialysis schedule M,W,F -Nephro on consult, help appreciated Endocrine: -History of Diabetes Type 2 on insulin at home -Serum glucose on admission 31, Hypoglycemic -Hold Levemir 10 units SC HS -Accuchecks ACHS -Hypoglycemia protocol Infectious Disease: -Sepsis, source unknown at this time -Procalcitonin 6.7 -Antibiotics: Merrem 500mg Q12H, Vancomycin 1gm x 1 dose STAT -F/U urine legionella, urine strep pneumonia, mycoplasma -Urine cultures, blood cultures pending GI/DVT ppx: -Protonix 40mg IV daily, SCDs -DVT ppx containdicated, hx of GI bleed <Dilshad Shah - Last Filed: 08/12/17 16:44> CCU Objective - Vital Signs / Intake & Output Vital Signs (Last 4 hours): Vital Signs Temp Pulse Resp BP Pulse Ox 08/12/17 16:07 150 H 32 H 103/45 L 08/12/17 16:00 100.0 F H 127 H 30 H 98 08/12/17 15:55 105 H 15 70/13 L 08/12/17 15:45 118 H 41 H 74/52 L 84 L 08/12/17 15:41 125 H 31 H 74/52 L 84 L 08/12/17 15:33 127 H 32 H 89/42 L 98 08/12/17 15:30 145 H 37 H 08/12/17 15:26 132 H 39 H 89/42 L 89 L 08/12/17 15:20 124 H 33 H 106/46 L 08/12/17 15:15 114 H 25 H 08/12/17 15:00 145 H 40 H 08/12/17 14:49 134 H 25 H 78/36 L 89 L 08/12/17 14:45 127 H 34 H 93 L 08/12/17 14:41 134 H 34 H 70/42 L 08/12/17 14:36 137 H 32 H 73/44 L 08/12/17 14:16 139 H 30 H 105/41 L 08/12/17 14:15 127 H 34 H 08/12/17 14:00 141 H 18 08/12/17 13:58 118 H 36 H 81/62 L 08/12/17 13:45 157 H 21 08/12/17 13:42 120 H 38 H 107/50 L 08/12/17 13:41 123 H 40 H 96/50 L 08/12/17 13:35 120 H 36 H 55/30 L 08/12/17 13:18 128 H 26 H 83/47 L 08/12/17 13:15 127 H 23 08/12/17 13:14 123 H 21 88/43 L 08/12/17 13:00 110 H 33 H 08/12/17 12:57 118 H 35 H 91/35 L 08/12/17 12:45 112 H 37 H 08/12/17 12:44 115 H 35 H 96/39 L Intake and Output (Last 8hrs): Intake & Output 08/12/17 08/12/17 08/12/17 06:59 14:59 22:59 Intake Total 670 804.9 301.2 Balance 670 804.9 301.2 Weight 121 lb 4.068 oz Intake: IV 213 49 Intake, IV Amount 550 461.9 212.2 Left Antecubital 550 300 0 Perma Cath Blue port 161.9 91.1 Right Distal Port Femoral 30 Right Medial Port Femoral 91.1 Oral 120 50 Tube Feeding 80 40 Other: # Voids Urine, Voided 0 0 0 # Bowel Movements 0 0 0 - Medications Active Medications: Active Medications Generic Name Dose Route Start Last Admin Trade Name Freq PRN Reason Stop Dose Admin Dextrose 0 ml 08/11/17 17:18 08/12/17 09:45 Dextrose 50% Inj IV 50 ml STAT PRN Administration Hypoglycemia Protocol Protocol Dextrose 0 gm 08/11/17 17:18 Glutose 15 PO ONCE PRN Hypoglycemia Protocol Protocol Glucagon 0 mg 08/11/17 17:18 Glucagen Diagnostic Kit IM STAT PRN Hypoglycemia Protocol Protocol Dextrose 1,000 mls @ 0 mls/hr 08/11/17 17:18 Dextrose 5% In Water 1000 Ml IV .Q0M PRN Hypoglycemia Protocol Protocol Per Protocol Phenylephrine HCl 30 mg/ 253 mls @ 10.12 mls/hr 08/11/17 18:28 04/03/18 15:33 Sodium Chloride IV 180 mcg/min .Q24H PRN 91.08 mls/hr TITRATE PER MD ORDER Administration Protocol 20 MCG/MIN Meropenem 500 mg/ Sodium 100 mls @ 100 mls/hr 08/12/17 22:00 Chloride IVPB Q12H CORINA Protocol Norepinephrine Bitartrate 4 mg 254 mls @ 15.24 mls/hr 08/12/17 15:11 15:55 / Dextrose IV 8 mcg/min .[id number] PRN 30.48 mls/hr TITRATE PER MD ORDER Titration Protocol 4 MCG/MIN Lorazepam 1 mg 08/12/17 11:07 Ativan IVP Q6H PRN Agitation Pantoprazole Sodium 40 mg 08/12/17 10:00 08/12/17 10:39 Protonix Inj IVP 40 mg DAILY CORINA Administration - Patient Studies Lab Studies: Lab Studies 08/12/17 08/12/17 08/12/17 Range/Units 15:40 14:30 11:48 WBC (4.8-10.8) K/uL RBC (4.40-5.90) Mil/uL Hgb (12.0-18.0) g/dL Hct (35.0-51.0) % MCV (80.0-94.0) fL MCH (27.0-31.0) pg MCHC (33.0-37.0) g/dL RDW (11.5-14.5) % Plt Count (130-400) K/uL MPV (7.2-11.7) fL Neut % (Auto) (50.0-75.0) % Lymph % (Auto) (20.0-40.0) % Marshall % (Auto) (0.0-10.0) % Eos % (Auto) (0.0-4.0) % Baso % (Auto) (0.0-2.0) % Neut # (Auto) (1.8-7.0) K/uL Lymph # (Auto) (1.0-4.3) K/uL Marshall # (Auto) (0.0-0.8) K/uL Eos # (Auto) (0.0-0.7) K/uL Baso # (Auto) (0.0-0.2) K/uL Neutrophils % (Manual) (50-75) % Lymphocytes % (Manual) (20-40) % Monocytes % (Manual) (0-10) % Platelet Estimate (NORMAL) Poikilocytosis (manual Anisocytosis (manual) PT (9.7-12.2) SECONDS INR APTT (21-34) SECONDS Puncture Site Lf pCO2 30 L (35-45) mm/Hg pO2 81 (80-100) mm/Hg HCO3 16.0 L (21-28) mmol/L ABG pH 7.28 L (7.35-7.45) ABG Total CO2 15.0 L (22-28) mmol/L ABG O2 Saturation 97.7 (95-98) % ABG Base Excess -11.3 L (-2.0-3.0) mmol/L ABG Hemoglobin (11.7-17.4) g/dL ABG Carboxyhemoglobin (0.5-1.5) % POC ABG HHb (Measured) (0.0-5.0) % ABG Methemoglobin (0.0-3.0) % [place] Test Na ABG Potassium 4.2 (3.6-5.2) mmol/L VBG pH (7.32-7.43) VBG pCO2 (40-60) mmHg VBG HCO3 mmol/L VBG Total CO2 (22-28) mmol/L VBG O2 Sat (Calc) (40-65) % VBG Base Excess (0.0-2.0) mmol/L VBG Potassium (3.6-5.2) mmol/L A-a O2 Difference 595.0 mm/Hg Respiratory Index 7.3 Hgb O2 Saturation (95.0-98.0) % Sodium 140.0 (132-148) mmol/l Chloride 110.0 H (98-107) mmol/L Glucose 100 (75-110) mg/dl Lactate 7.1 H* (0.7-2.1) mmol/L Vent Mode Mechanical Rate 16 FiO2 100.0 % Tidal Volume 500 PEEP 5 Crit Value Called To Dr shah Crit Value Called By Salomón lugo meterman Crit Value Read Back Y Blood Gas Notified Time 1440 Potassium (3.6-5.2) mmol/L Carbon Dioxide (22-30) mmol/L Anion Gap (10-20) BUN (9-20) mg/dL Creatinine (0.8-1.5) mg/dL Est GFR ( Amer) Est GFR (Non-Af Amer) POC Glucose (mg/dL) 104 104 (65-110) mg/dL Random Glucose (75-110) mg/dL Calcium (8.6-10.4) mg/dl Phosphorus (2.5-4.5) mg/dL Magnesium (1.6-2.3) mg/dL Total Bilirubin (0.2-1.3) mg/dL AST (17-59) U/L ALT (21-72) U/L Alkaline Phosphatase (38-126) U/L Total Creatine Kinase (55-170) U/L CK-MB (Mass) (0.0-3.38) ng/mL Troponin I (0.00-0.120) ng/mL Total Protein (6.3-8.3) g/dL Albumin (3.5-5.0) g/dL Globulin (2.2-3.9) gm/dL Albumin/Globulin Ratio (1.0-2.1) Procalcitonin (0.19-0.49) NG/ML Arterial Blood Potassium 4.2 (3.6-5.2) mmol/L Venous Blood Potassium (3.6-5.2) mmol/L 08/12/17 08/12/17 08/12/17 Range/Units 11:35 10:11 09:46 WBC (4.8-10.8) K/uL RBC (4.40-5.90) Mil/uL Hgb (12.0-18.0) g/dL Hct (35.0-51.0) % MCV (80.0-94.0) fL MCH (27.0-31.0) pg MCHC (33.0-37.0) g/dL RDW (11.5-14.5) % Plt Count (130-400) K/uL MPV (7.2-11.7) fL Neut % (Auto) (50.0-75.0) % Lymph % (Auto) (20.0-40.0) % Marshall % (Auto) (0.0-10.0) % Eos % (Auto) (0.0-4.0) % Baso % (Auto) (0.0-2.0) % Neut # (Auto) (1.8-7.0) K/uL Lymph # (Auto) (1.0-4.3) K/uL Marshall # (Auto) (0.0-0.8) K/uL Eos # (Auto) (0.0-0.7) K/uL Baso # (Auto) (0.0-0.2) K/uL Neutrophils % (Manual) (50-75) % Lymphocytes % (Manual) (20-40) % Monocytes % (Manual) (0-10) % Platelet Estimate (NORMAL) Poikilocytosis (manual Anisocytosis (manual) PT (9.7-12.2) SECONDS INR APTT (21-34) SECONDS Puncture Site Lf pCO2 28 L (35-45) mm/Hg pO2 118 H (80-100) mm/Hg HCO3 18.2 L (21-28) mmol/L ABG pH 7.35 (7.35-7.45) ABG Total CO2 16.4 L (22-28) mmol/L ABG O2 Saturation 99.0 H (95-98) % ABG Base Excess -8.6 L (-2.0-3.0) mmol/L ABG Hemoglobin (11.7-17.4) g/dL ABG Carboxyhemoglobin (0.5-1.5) % POC ABG HHb (Measured) (0.0-5.0) % ABG Methemoglobin (0.0-3.0) % [place] Test Na ABG Potassium 4.4 (3.6-5.2) mmol/L VBG pH (7.32-7.43) VBG pCO2 (40-60) mmHg VBG HCO3 mmol/L VBG Total CO2 (22-28) mmol/L VBG O2 Sat (Calc) (40-65) % VBG Base Excess (0.0-2.0) mmol/L VBG Potassium (3.6-5.2) mmol/L A-a O2 Difference 560.0 mm/Hg Respiratory Index 4.7 Hgb O2 Saturation (95.0-98.0) % Sodium 139.0 (132-148) mmol/l Chloride 104.0 (98-107) mmol/L Glucose 133 H (75-110) mg/dl Lactate 6.9 H* (0.7-2.1) mmol/L Vent Mode Mechanical Rate 16 FiO2 100.0 % Tidal Volume 500 PEEP 5 Crit Value Called To Dr shah Crit Value Called By Salomón lugo meterman Crit Value Read Back Y Blood Gas Notified Time 1145 Potassium (3.6-5.2) mmol/L Carbon Dioxide (22-30) mmol/L Anion Gap (10-20) BUN (9-20) mg/dL Creatinine (0.8-1.5) mg/dL Est GFR ( Amer) Est GFR (Non-Af Amer) POC Glucose (mg/dL) 152 H 58 L (65-110) mg/dL Random Glucose (75-110) mg/dL Calcium (8.6-10.4) mg/dl Phosphorus (2.5-4.5) mg/dL Magnesium (1.6-2.3) mg/dL Total Bilirubin (0.2-1.3) mg/dL AST (17-59) U/L ALT (21-72) U/L Alkaline Phosphatase (38-126) U/L Total Creatine Kinase (55-170) U/L CK-MB (Mass) (0.0-3.38) ng/mL Troponin I (0.00-0.120) ng/mL Total Protein (6.3-8.3) g/dL Albumin (3.5-5.0) g/dL Globulin (2.2-3.9) gm/dL Albumin/Globulin Ratio (1.0-2.1) Procalcitonin (0.19-0.49) NG/ML Arterial Blood Potassium 4.4 (3.6-5.2) mmol/L Venous Blood Potassium (3.6-5.2) mmol/L 08/12/17 08/12/17 08/12/17 Range/Units 09:44 07:30 06:17 WBC (4.8-10.8) K/uL RBC (4.40-5.90) Mil/uL Hgb (12.0-18.0) g/dL Hct (35.0-51.0) % MCV (80.0-94.0) fL MCH (27.0-31.0) pg MCHC (33.0-37.0) g/dL RDW (11.5-14.5) % Plt Count (130-400) K/uL MPV (7.2-11.7) fL Neut % (Auto) (50.0-75.0) % Lymph % (Auto) (20.0-40.0) % Marshall % (Auto) (0.0-10.0) % Eos % (Auto) (0.0-4.0) % Baso % (Auto) (0.0-2.0) % Neut # (Auto) (1.8-7.0) K/uL Lymph # (Auto) (1.0-4.3) K/uL Marshall # (Auto) (0.0-0.8) K/uL Eos # (Auto) (0.0-0.7) K/uL Baso # (Auto) (0.0-0.2) K/uL Neutrophils % (Manual) (50-75) % Lymphocytes % (Manual) (20-40) % Monocytes % (Manual) (0-10) % Platelet Estimate (NORMAL) Poikilocytosis (manual Anisocytosis (manual) PT (9.7-12.2) SECONDS INR APTT (21-34) SECONDS Puncture Site pCO2 (35-45) mm/Hg pO2 (80-100) mm/Hg HCO3 (21-28) mmol/L ABG pH (7.35-7.45) ABG Total CO2 (22-28) mmol/L ABG O2 Saturation (95-98) % ABG Base Excess (-2.0-3.0) mmol/L ABG Hemoglobin (11.7-17.4) g/dL ABG Carboxyhemoglobin (0.5-1.5) % POC ABG HHb (Measured) (0.0-5.0) % ABG Methemoglobin (0.0-3.0) % [place]co Test ABG Potassium (3.6-5.2) mmol/L VBG pH (7.32-7.43) VBG pCO2 (40-60) mmHg VBG HCO3 mmol/L VBG Total CO2 (22-28) mmol/L VBG O2 Sat (Calc) (40-65) % VBG Base Excess (0.0-2.0) mmol/L VBG Potassium (3.6-5.2) mmol/L A-a O2 Difference mm/Hg Respiratory Index Hgb O2 Saturation (95.0-98.0) % Sodium (132-148) mmol/l Chloride (98-107) mmol/L Glucose (75-110) mg/dl Lactate (0.7-2.1) mmol/L Vent Mode Mechanical Rate FiO2 % Tidal Volume PEEP Crit Value Called To Crit Value Called By Crit Value Read Back Blood Gas Notified Time Potassium (3.6-5.2) mmol/L Carbon Dioxide (22-30) mmol/L Anion Gap (10-20) BUN (9-20) mg/dL Creatinine (0.8-1.5) mg/dL Est GFR ( Amer) Est GFR (Non-Af Amer) POC Glucose (mg/dL) 52 L 71 84 (65-110) mg/dL Random Glucose (75-110) mg/dL Calcium (8.6-10.4) mg/dl Phosphorus (2.5-4.5) mg/dL Magnesium (1.6-2.3) mg/dL Total Bilirubin (0.2-1.3) mg/dL AST (17-59) U/L ALT (21-72) U/L Alkaline Phosphatase (38-126) U/L Total Creatine Kinase (55-170) U/L CK-MB (Mass) (0.0-3.38) ng/mL Troponin I (0.00-0.120) ng/mL Total Protein (6.3-8.3) g/dL Albumin (3.5-5.0) g/dL Globulin (2.2-3.9) gm/dL Albumin/Globulin Ratio (1.0-2.1) Procalcitonin (0.19-0.49) NG/ML Arterial Blood Potassium (3.6-5.2) mmol/L Venous Blood Potassium (3.6-5.2) mmol/L 08/12/17 08/12/17 08/12/17 Range/Units 05:58 05:07 05:07 WBC (4.8-10.8) K/uL RBC (4.40-5.90) Mil/uL Hgb (12.0-18.0) g/dL Hct (35.0-51.0) % MCV (80.0-94.0) fL MCH (27.0-31.0) pg MCHC (33.0-37.0) g/dL RDW (11.5-14.5) % Plt Count (130-400) K/uL MPV (7.2-11.7) fL Neut % (Auto) (50.0-75.0) % Lymph % (Auto) (20.0-40.0) % Marshall % (Auto) (0.0-10.0) % Eos % (Auto) (0.0-4.0) % Baso % (Auto) (0.0-2.0) % Neut # (Auto) (1.8-7.0) K/uL Lymph # (Auto) (1.0-4.3) K/uL Marshall # (Auto) (0.0-0.8) K/uL Eos # (Auto) (0.0-0.7) K/uL Baso # (Auto) (0.0-0.2) K/uL Neutrophils % (Manual) (50-75) % Lymphocytes % (Manual) (20-40) % Monocytes % (Manual) (0-10) % Platelet Estimate (NORMAL) Poikilocytosis (manual Anisocytosis (manual) PT 17.1 H (9.7-12.2) SECONDS INR 1.5 APTT 42 H (21-34) SECONDS Puncture Site Femoral pCO2 27 L (35-45) mm/Hg pO2 131 H (80-100) mm/Hg HCO3 13.7 L (21-28) mmol/L ABG pH 7.24 L (7.35-7.45) ABG Total CO2 12.4 L (22-28) mmol/L ABG O2 Saturation 99.0 H (95-98) % ABG Base Excess -14.4 L (-2.0-3.0) mmol/L ABG Hemoglobin 9.0 L (11.7-17.4) g/dL ABG Carboxyhemoglobin 1.8 H (0.5-1.5) % POC ABG HHb (Measured) 1.0 (0.0-5.0) % ABG Methemoglobin 0.7 (0.0-3.0) % P[place]co Test Na ABG Potassium (3.6-5.2) mmol/L VBG pH (7.32-7.43) VBG pCO2 (40-60) mmHg VBG HCO3 mmol/L VBG Total CO2 (22-28) mmol/L VBG O2 Sat (Calc) (40-65) % VBG Base Excess (0.0-2.0) mmol/L VBG Potassium (3.6-5.2) mmol/L A-a O2 Difference 548.0 mm/Hg Respiratory Index 4.2 Hgb O2 Saturation 96.6 (95.0-98.0) % Sodium 140 (132-148) mmol/l Chloride 99 (98-107) mmol/L Glucose (75-110) mg/dl Lactate (0.7-2.1) mmol/L Vent Mode Prvc Mechanical Rate 15 FiO2 100.0 % Tidal Volume 500 PEEP 5 Crit Value Called To Crit Value Called By Crit Value Read Back Blood Gas Notified Time Potassium 4.8 (3.6-5.2) mmol/L Carbon Dioxide 14 L (22-30) mmol/L Anion Gap 32 H (10-20) BUN 32 H (9-20) mg/dL Creatinine 3.3 H (0.8-1.5) mg/dL Est GFR ( Amer) 22 Est GFR (Non-Af Amer) 18 POC Glucose (mg/dL) (65-110) mg/dL Random Glucose 108 (75-110) mg/dL Calcium 7.9 L (8.6-10.4) mg/dl Phosphorus 7.0 H (2.5-4.5) mg/dL Magnesium 2.2 (1.6-2.3) mg/dL Total Bilirubin 1.6 H (0.2-1.3) mg/dL AST 883 H D (17-59) U/L ALT 235 H D (21-72) U/L Alkaline Phosphatase 121 (38-126) U/L Total Creatine Kinase 234 H (55-170) U/L CK-MB (Mass) 2.95 (0.0-3.38) ng/mL Troponin I 1.2800 H* (0.00-0.120) ng/mL Total Protein 6.3 (6.3-8.3) g/dL Albumin 2.9 L (3.5-5.0) g/dL Globulin 3.4 (2.2-3.9) gm/dL Albumin/Globulin Ratio 0.9 L (1.0-2.1) Procalcitonin (0.19-0.49) NG/ML Arterial Blood Potassium (3.6-5.2) mmol/L Venous Blood Potassium (3.6-5.2) mmol/L 08/12/17 08/12/17 08/11/17 Range/Units 05:07 00:17 23:40 WBC 14.6 H (4.8-10.8) K/uL RBC 3.57 L (4.40-5.90) Mil/uL Hgb 10.6 L (12.0-18.0) g/dL Hct 33.7 L (35.0-51.0) % MCV 94.3 H D (80.0-94.0) fL MCH 29.6 (27.0-31.0) pg MCHC 31.4 L (33.0-37.0) g/dL RDW 19.8 H (11.5-14.5) % Plt Count 107 L (130-400) K/uL MPV 10.6 (7.2-11.7) fL Neut % (Auto) 82.3 H (50.0-75.0) % Lymph % (Auto) 15.0 L (20.0-40.0) % Marshall % (Auto) 2.2 (0.0-10.0) % Eos % (Auto) 0.0 (0.0-4.0) % Baso % (Auto) 0.5 (0.0-2.0) % Neut # (Auto) 12.0 H (1.8-7.0) K/uL Lymph # (Auto) 2.2 (1.0-4.3) K/uL Marshall # (Auto) 0.3 (0.0-0.8) K/uL Eos # (Auto) 0.0 (0.0-0.7) K/uL Baso # (Auto) 0.1 (0.0-0.2) K/uL Neutrophils % (Manual) (50-75) % Lymphocytes % (Manual) (20-40) % Monocytes % (Manual) (0-10) % Platelet Estimate (NORMAL) Poikilocytosis (manual Anisocytosis (manual) PT (9.7-12.2) SECONDS INR APTT (21-34) SECONDS Puncture Site pCO2 (35-45) mm/Hg pO2 26 L (80-100) mm/Hg HCO3 (21-28) mmol/L ABG pH (7.35-7.45) ABG Total CO2 (22-28) mmol/L ABG O2 Saturation (95-98) % ABG Base Excess (-2.0-3.0) mmol/L ABG Hemoglobin (11.7-17.4) g/dL ABG Carboxyhemoglobin (0.5-1.5) % POC ABG HHb (Measured) (0.0-5.0) % ABG Methemoglobin (0.0-3.0) % Pacheco Test ABG Potassium (3.6-5.2) mmol/L VBG pH 7.34 (7.32-7.43) VBG pCO2 64 H (40-60) mmHg VBG HCO3 28.5 mmol/L VBG Total CO2 36.5 H (22-28) mmol/L VBG O2 Sat (Calc) 40.8 (40-65) % VBG Base Excess 6.5 H (0.0-2.0) mmol/L VBG Potassium 1.8 L* (3.6-5.2) mmol/L A-a O2 Difference mm/Hg Respiratory Index Hgb O2 Saturation (95.0-98.0) % Sodium 142 136.0 (132-148) mmol/l Chloride 97 L 97.0 L (98-107) mmol/L Glucose 95 (75-110) mg/dl Lactate 0.9 (0.7-2.1) mmol/L Vent Mode Mechanical Rate FiO2 % Tidal Volume PEEP Crit Value Called To [facility] nurse michelle Crit Value Called By Bette rowe Crit Value Read Back Y Blood Gas Notified Time 2346 Potassium 3.7 (3.6-5.2) mmol/L Carbon Dioxide 28 (22-30) mmol/L Anion Gap 21 H (10-20) BUN 22 H (9-20) mg/dL Creatinine 2.1 H (0.8-1.5) mg/dL Est GFR ( Amer) 37 Est GFR (Non-Af Amer) 31 POC Glucose (mg/dL) (65-110) mg/dL Random Glucose 107 (75-110) mg/dL Calcium 7.9 L (8.6-10.4) mg/dl Phosphorus (2.5-4.5) mg/dL Magnesium (1.6-2.3) mg/dL Total Bilirubin (0.2-1.3) mg/dL AST (17-59) U/L ALT (21-72) U/L Alkaline Phosphatase (38-126) U/L Total Creatine Kinase (55-170) U/L CK-MB (Mass) (0.0-3.38) ng/mL Troponin I (0.00-0.120) ng/mL Total Protein (6.3-8.3) g/dL Albumin (3.5-5.0) g/dL Globulin (2.2-3.9) gm/dL Albumin/Globulin Ratio (1.0-2.1) Procalcitonin (0.19-0.49) NG/ML Arterial Blood Potassium (3.6-5.2) mmol/L Venous Blood Potassium 1.8 L* (3.6-5.2) mmol/L 08/11/17 08/11/17 08/11/17 Range/Units 21:38 19:35 19:35 WBC 11.1 H (4.8-10.8) K/uL RBC 3.44 L (4.40-5.90) Mil/uL Hgb 10.3 L D (12.0-18.0) g/dL Hct 31.3 L (35.0-51.0) % MCV 90.8 (80.0-94.0) fL MCH 29.9 (27.0-31.0) pg MCHC 33.0 (33.0-37.0) g/dL RDW 19.3 H (11.5-14.5) % Plt Count 101 L D (130-400) K/uL MPV 10.0 (7.2-11.7) fL Neut % (Auto) 84.4 H (50.0-75.0) % Lymph % (Auto) 9.3 L (20.0-40.0) % Marshall % (Auto) 5.1 (0.0-10.0) % Eos % (Auto) 0.0 (0.0-4.0) % Baso % (Auto) 1.2 (0.0-2.0) % Neut # (Auto) 9.4 H (1.8-7.0) K/uL Lymph # (Auto) 1.0 (1.0-4.3) K/uL Marshall # (Auto) 0.6 (0.0-0.8) K/uL Eos # (Auto) 0.0 (0.0-0.7) K/uL Baso # (Auto) 0.1 (0.0-0.2) K/uL Neutrophils % (Manual) 90 H (50-75) % Lymphocytes % (Manual) 6 L (20-40) % Monocytes % (Manual) 4 (0-10) % Platelet Estimate Slightly decreased L (NORMAL) Poikilocytosis (manual Slight Anisocytosis (manual) Slight PT (9.7-12.2) SECONDS INR APTT (21-34) SECONDS Puncture Site pCO2 (35-45) mm/Hg pO2 (80-100) mm/Hg HCO3 (21-28) mmol/L ABG pH (7.35-7.45) ABG Total CO2 (22-28) mmol/L ABG O2 Saturation (95-98) % ABG Base Excess (-2.0-3.0) mmol/L ABG Hemoglobin (11.7-17.4) g/dL ABG Carboxyhemoglobin (0.5-1.5) % POC ABG HHb (Measured) (0.0-5.0) % ABG Methemoglobin (0.0-3.0) % Pacheco Test ABG Potassium (3.6-5.2) mmol/L VBG pH (7.32-7.43) VBG pCO2 (40-60) mmHg VBG HCO3 mmol/L VBG Total CO2 (22-28) mmol/L VBG O2 Sat (Calc) (40-65) % VBG Base Excess (0.0-2.0) mmol/L VBG Potassium (3.6-5.2) mmol/L A-a O2 Difference mm/Hg Respiratory Index Hgb O2 Saturation (95.0-98.0) % Sodium (132-148) mmol/l Chloride (98-107) mmol/L Glucose (75-110) mg/dl Lactate (0.7-2.1) mmol/L Vent Mode Mechanical Rate FiO2 % Tidal Volume PEEP Crit Value Called To Crit Value Called By Crit Value Read Back Blood Gas Notified Time Potassium (3.6-5.2) mmol/L Carbon Dioxide (22-30) mmol/L Anion Gap (10-20) BUN (9-20) mg/dL Creatinine (0.8-1.5) mg/dL Est GFR ( Amer) Est GFR (Non-Af Amer) POC Glucose (mg/dL) 95 (65-110) mg/dL Random Glucose (75-110) mg/dL Calcium (8.6-10.4) mg/dl Phosphorus (2.5-4.5) mg/dL Magnesium (1.6-2.3) mg/dL Total Bilirubin (0.2-1.3) mg/dL AST (17-59) U/L ALT (21-72) U/L Alkaline Phosphatase (38-126) U/L Total Creatine Kinase (55-170) U/L CK-MB (Mass) (0.0-3.38) ng/mL Troponin I (0.00-0.120) ng/mL Total Protein (6.3-8.3) g/dL Albumin (3.5-5.0) g/dL Globulin (2.2-3.9) gm/dL Albumin/Globulin Ratio (1.0-2.1) Procalcitonin 6.73 H (0.19-0.49) NG/ML Arterial Blood Potassium (3.6-5.2) mmol/L Venous Blood Potassium (3.6-5.2) mmol/L 08/11/17 08/11/17 08/11/17 Range/Units 19:35 19:10 17:29 WBC (4.8-10.8) K/uL RBC (4.40-5.90) Mil/uL Hgb (12.0-18.0) g/dL Hct (35.0-51.0) % MCV (80.0-94.0) fL MCH (27.0-31.0) pg MCHC (33.0-37.0) g/dL RDW (11.5-14.5) % Plt Count (130-400) K/uL MPV (7.2-11.7) fL Neut % (Auto) (50.0-75.0) % Lymph % (Auto) (20.0-40.0) % Marshall % (Auto) (0.0-10.0) % Eos % (Auto) (0.0-4.0) % Baso % (Auto) (0.0-2.0) % Neut # (Auto) (1.8-7.0) K/uL Lymph # (Auto) (1.0-4.3) K/uL Marshall # (Auto) (0.0-0.8) K/uL Eos # (Auto) (0.0-0.7) K/uL Baso # (Auto) (0.0-0.2) K/uL Neutrophils % (Manual) (50-75) % Lymphocytes % (Manual) (20-40) % Monocytes % (Manual) (0-10) % Platelet Estimate (NORMAL) Poikilocytosis (manual Anisocytosis (manual) PT (9.7-12.2) SECONDS INR APTT (21-34) SECONDS Puncture Site Rba pCO2 18 L* (35-45) mm/Hg pO2 68 L (80-100) mm/Hg HCO3 17.2 L (21-28) mmol/L ABG pH 7.43 (7.35-7.45) ABG Total CO2 12.5 L (22-28) mmol/L ABG O2 Saturation 94.6 L (95-98) % ABG Base Excess -9.8 L (-2.0-3.0) mmol/L ABG Hemoglobin (11.7-17.4) g/dL ABG Carboxyhemoglobin (0.5-1.5) % POC ABG HHb (Measured) (0.0-5.0) % ABG Methemoglobin (0.0-3.0) % Pacheco Test Na ABG Potassium 4.8 (3.6-5.2) mmol/L VBG pH (7.32-7.43) VBG pCO2 (40-60) mmHg VBG HCO3 mmol/L VBG Total CO2 (22-28) mmol/L VBG O2 Sat (Calc) (40-65) % VBG Base Excess (0.0-2.0) mmol/L VBG Potassium (3.6-5.2) mmol/L A-a O2 Difference 230.0 mm/Hg Respiratory Index 3.4 Hgb O2 Saturation (95.0-98.0) % Sodium 139 135.0 (132-148) mmol/l Chloride 101 102.0 (98-107) mmol/L Glucose 72 L (75-110) mg/dl Lactate 6.7 H* (0.7-2.1) mmol/L Vent Mode Mechanical Rate FiO2 45.0 % Tidal Volume PEEP Crit Value Called To Dr. duffy Crit Value Called By Bette rowe Crit Value Read Back Y Blood Gas Notified Time 1915 Potassium 5.2 (3.6-5.2) mmol/L Carbon Dioxide 12 L (22-30) mmol/L Anion Gap 31 H (10-20) BUN 69 H (9-20) mg/dL Creatinine 5.3 H (0.8-1.5) mg/dL Est GFR ( Amer) 13 Est GFR (Non-Af Amer) 11 POC Glucose (mg/dL) 102 (65-110) mg/dL Random Glucose 76 (75-110) mg/dL Calcium 8.1 L (8.6-10.4) mg/dl Phosphorus 7.7 H (2.5-4.5) mg/dL Magnesium 2.0 (1.6-2.3) mg/dL Total Bilirubin 1.3 (0.2-1.3) mg/dL AST 313 H (17-59) U/L ALT 91 H (21-72) U/L Alkaline Phosphatase 108 (38-126) U/L Total Creatine Kinase (55-170) U/L CK-MB (Mass) (0.0-3.38) ng/mL Troponin I 1.5600 H* (0.00-0.120) ng/mL Total Protein 6.2 L (6.3-8.3) g/dL Albumin 2.8 L D (3.5-5.0) g/dL Globulin 3.4 (2.2-3.9) gm/dL Albumin/Globulin Ratio 0.8 L (1.0-2.1) Procalcitonin (0.19-0.49) NG/ML Arterial Blood Potassium 4.8 (3.6-5.2) mmol/L Venous Blood Potassium (3.6-5.2) mmol/L Laboratory Results - last 24 hr 08/11/17 08/11/17 08/11/17 17:29 19:10 19:35 WBC RBC Hgb Hct MCV MCH MCHC RDW Plt Count MPV Neut % (Auto) Lymph % (Auto) Marshall % (Auto) Eos % (Auto) Baso % (Auto) Neut # (Auto) Lymph # (Auto) Marshall # (Auto) Eos # (Auto) Baso # (Auto) Neutrophils % (Manual) Lymphocytes % (Manual) Monocytes % (Manual) Platelet Estimate Poikilocytosis (manual Anisocytosis (manual) PT INR APTT Puncture Site Rba pCO2 18 L* pO2 68 L HCO3 17.2 L ABG pH 7.43 ABG Total CO2 12.5 L ABG O2 Saturation 94.6 L ABG Base Excess -9.8 L ABG Hemoglobin ABG Carboxyhemoglobin POC ABG HHb (Measured) ABG Methemoglobin Pacheco Test Na ABG Potassium 4.8 VBG pH VBG pCO2 VBG HCO3 VBG Total CO2 VBG O2 Sat (Calc) VBG Base Excess VBG Potassium A-a O2 Difference 230.0 Respiratory Index 3.4 Hgb O2 Saturation Sodium 135.0 139 Chloride 102.0 101 Glucose 72 L Lactate 6.7 H* Vent Mode Mechanical Rate FiO2 45.0 Tidal Volume PEEP Crit Value Called To Dr. duffy Crit Value Called By Bette rt Crit Value Read Back Y Blood Gas Notified Time 1915 Potassium 5.2 Carbon Dioxide 12 L Anion Gap 31 H BUN 69 H Creatinine 5.3 H Est GFR ( Amer) 13 Est GFR (Non-Af Amer) 11 POC Glucose (mg/dL) 102 Random Glucose 76 Calcium 8.1 L Phosphorus 7.7 H Magnesium 2.0 Total Bilirubin 1.3 AST 313 H ALT 91 H Alkaline Phosphatase 108 Total Creatine Kinase CK-MB (Mass) Troponin I 1.5600 H* Total Protein 6.2 L Albumin 2.8 L D Globulin 3.4 Albumin/Globulin Ratio 0.8 L Procalcitonin Arterial Blood Potassium 4.8 Venous Blood Potassium 08/11/17 08/11/1708/11/18 19:35 19:35 21:38 WBC 11.1 H RBC 3.44 L Hgb 10.3 L D Hct 31.3 L MCV 90.8 MCH 29.9 MCHC 33.0 RDW 19.3 H Plt Count 101 L D MPV 10.0 Neut % (Auto) 84.4 H Lymph % (Auto) 9.3 L Marshall % (Auto) 5.1 Eos % (Auto) 0.0 Baso % (Auto) 1.2 Neut # (Auto) 9.4 H Lymph # (Auto) 1.0 Marshall # (Auto) 0.6 Eos # (Auto) 0.0 Baso # (Auto) 0.1 Neutrophils % (Manual) 90 H Lymphocytes % (Manual) 6 L Monocytes % (Manual) 4 Platelet Estimate Slightly decreased L Poikilocytosis (manual Slight Anisocytosis (manual) Slight PT INR APTT Puncture Site pCO2 pO2 HCO3 ABG pH ABG Total CO2 ABG O2 Saturation ABG Base Excess ABG Hemoglobin ABG Carboxyhemoglobin POC ABG HHb (Measured) ABG Methemoglobin Pacheco Test ABG Potassium VBG pH VBG pCO2 VBG HCO3 VBG Total CO2 VBG O2 Sat (Calc) VBG Base Excess VBG Potassium A-a O2 Difference Respiratory Index Hgb O2 Saturation Sodium Chloride Glucose Lactate Vent Mode Mechanical Rate FiO2 Tidal Volume PEEP Crit Value Called To Crit Value Called By Crit Value Read Back Blood Gas Notified Time Potassium Carbon Dioxide Anion Gap BUN Creatinine Est GFR ( Amer) Est GFR (Non-Af Amer) POC Glucose (mg/dL) 95 Random Glucose Calcium Phosphorus Magnesium Total Bilirubin AST ALT Alkaline Phosphatase Total Creatine Kinase CK-MB (Mass) Troponin I Total Protein Albumin Globulin Albumin/Globulin Ratio Procalcitonin 6.73 H Arterial Blood Potassium Venous Blood Potassium 08/11/17 08/12/17 08/12/17 23:40 00:17 05:07 WBC 14.6 H RBC 3.57 L Hgb 10.6 L Hct 33.7 L MCV 94.3 H D MCH 29.6 MCHC 31.4 L RDW 19.8 H Plt Count 107 L MPV 10.6 Neut % (Auto) 82.3 H Lymph % (Auto) 15.0 L Marshall % (Auto) 2.2 Eos % (Auto) 0.0 Baso % (Auto) 0.5 Neut # (Auto) 12.0 H Lymph # (Auto) 2.2 Marshall # (Auto) 0.3 Eos # (Auto) 0.0 Baso # (Auto) 0.1 Neutrophils % (Manual) Lymphocytes % (Manual) Monocytes % (Manual) Platelet Estimate Poikilocytosis (manual Anisocytosis (manual) PT INR APTT Puncture Site pCO2 pO2 26 L HCO3 ABG pH ABG Total CO2 ABG O2 Saturation ABG Base Excess ABG Hemoglobin ABG Carboxyhemoglobin POC ABG HHb (Measured) ABG Methemoglobin Pacheco Test ABG Potassium VBG pH 7.34 VBG pCO2 64 H VBG HCO3 28.5 VBG Total CO2 36.5 H VBG O2 Sat (Calc) 40.8 VBG Base Excess 6.5 H VBG Potassium 1.8 L* A-a O2 Difference Respiratory Index Hgb O2 Saturation Sodium 136.0 142 Chloride 97.0 L 97 L Glucose 95 Lactate 0.9 Vent Mode Mechanical Rate FiO2 Tidal Volume PEEP Crit Value Called To [facility] nurse michelle Crit Value Called By Bette rt Crit Value Read Back Y Blood Gas Notified Time 2344 Potassium 3.7 Carbon Dioxide 28 Anion Gap 21 H BUN 22 H Creatinine 2.1 H Est GFR ( Amer) 37 Est GFR (Non-Af Amer) 31 POC Glucose (mg/dL) Random Glucose 107 Calcium 7.9 L Phosphorus Magnesium Total Bilirubin AST ALT Alkaline Phosphatase Total Creatine Kinase CK-MB (Mass) Troponin I Total Protein Albumin Globulin Albumin/Globulin Ratio Procalcitonin Arterial Blood Potassium Venous Blood Potassium 1.8 L* 08/12/17 08/12/17 08/12/17 05:07 05:07 05:58 WBC RBC Hgb Hct MCV MCH MCHC RDW Plt Count MPV Neut % (Auto) Lymph % (Auto) Marshall % (Auto) Eos % (Auto) Baso % (Auto) Neut # (Auto) Lymph # (Auto) Marshall # (Auto) Eos # (Auto) Baso # (Auto) Neutrophils % (Manual) Lymphocytes % (Manual) Monocytes % (Manual) Platelet Estimate Poikilocytosis (manual Anisocytosis (manual) PT 17.1 H INR 1.5 APTT 42 H Puncture Site Femoral pCO2 27 L pO2 131 H HCO3 13.7 L ABG pH 7.24 L ABG Total CO2 12.4 L ABG O2 Saturation 99.0 H ABG Base Excess -14.4 L ABG Hemoglobin 9.0 L ABG Carboxyhemoglobin 1.8 H POC ABG HHb (Measured) 1.0 ABG Methemoglobin 0.7 P[place]co Test Na ABG Potassium VBG pH VBG pCO2 VBG HCO3 VBG Total CO2 VBG O2 Sat (Calc) VBG Base Excess VBG Potassium A-a O2 Difference 548.0 Respiratory Index 4.2 Hgb O2 Saturation 96.6 Sodium 140 Chloride 99 Glucose Lactate Vent Mode Prvc Mechanical Rate 15 FiO2 100.0 Tidal Volume 500 PEEP 5 Crit Value Called To Crit Value Called By Crit Value Read Back Blood Gas Notified Time Potassium 4.8 Carbon Dioxide 14 L Anion Gap 32 H BUN 32 H Creatinine 3.3 H Est GFR ( Amer) 22 Est GFR (Non-Af Amer) 18 POC Glucose (mg/dL) Random Glucose 108 Calcium 7.9 L Phosphorus 7.0 H Magnesium 2.2 Total Bilirubin 1.6 H AST 883 H D ALT 235 H D Alkaline Phosphatase 121 Total Creatine Kinase 234 H CK-MB (Mass) 2.95 Troponin I 1.2800 H* Total Protein 6.3 Albumin 2.9 L Globulin 3.4 Albumin/Globulin Ratio 0.9 L Procalcitonin Arterial Blood Potassium Venous Blood Potassium 08/12/17 08/12/17 08/12/17 06:17 07:30 09:44 WBC RBC Hgb Hct MCV MCH MCHC RDW Plt Count MPV Neut % (Auto) Lymph % (Auto) Marshall % (Auto) Eos % (Auto) Baso % (Auto) Neut # (Auto) Lymph # (Auto) Marshall # (Auto) Eos # (Auto) Baso # (Auto) Neutrophils % (Manual) Lymphocytes % (Manual) Monocytes % (Manual) Platelet Estimate Poikilocytosis (manual Anisocytosis (manual) PT INR APTT Puncture Site pCO2 pO2 HCO3 ABG pH ABG Total CO2 ABG O2 Saturation ABG Base Excess ABG Hemoglobin ABG Carboxyhemoglobin POC ABG HHb (Measured) ABG Methemoglobin [place]co Test ABG Potassium VBG pH VBG pCO2 VBG HCO3 VBG Total CO2 VBG O2 Sat (Calc) VBG Base Excess VBG Potassium A-a O2 Difference Respiratory Index Hgb O2 Saturation Sodium Chloride Glucose Lactate Vent Mode Mechanical Rate FiO2 Tidal Volume PEEP Crit Value Called To Crit Value Called By Crit Value Read Back Blood Gas Notified Time Potassium Carbon Dioxide Anion Gap BUN Creatinine Est GFR ( Amer) Est GFR (Non-Af Amer) POC Glucose (mg/dL) 84 71 52 L Random Glucose Calcium Phosphorus Magnesium Total Bilirubin AST ALT Alkaline Phosphatase Total Creatine Kinase CK-MB (Mass) Troponin I Total Protein Albumin Globulin Albumin/Globulin Ratio Procalcitonin Arterial Blood Potassium Venous Blood Potassium 08/12/17 08/12/17 08/12/17 09:46 10:11 11:35 WBC RBC Hgb Hct MCV MCH MCHC RDW Plt Count MPV Neut % (Auto) Lymph % (Auto) Marshall % (Auto) Eos % (Auto) Baso % (Auto) Neut # (Auto) Lymph # (Auto) Marshall # (Auto) Eos # (Auto) Baso # (Auto) Neutrophils % (Manual) Lymphocytes % (Manual) Monocytes % (Manual) Platelet Estimate Poikilocytosis (manual Anisocytosis (manual) PT INR APTT Puncture Site Lf pCO2 28 L pO2 118 H HCO3 18.2 L ABG pH 7.35 ABG Total CO2 16.4 L ABG O2 Saturation 99.0 H ABG Base Excess -8.6 L ABG Hemoglobin ABG Carboxyhemoglobin POC ABG HHb (Measured) ABG Methemoglobin [place] Test Na ABG Potassium 4.4 VBG pH VBG pCO2 VBG HCO3 VBG Total CO2 VBG O2 Sat (Calc) VBG Base Excess VBG Potassium A-a O2 Difference 560.0 Respiratory Index 4.7 Hgb O2 Saturation Sodium 139.0 Chloride 104.0 Glucose 133 H Lactate 6.9 H* Vent Mode Mechanical Rate 16 FiO2 100.0 Tidal Volume 500 PEEP 5 Crit Value Called To Dr shah Crit Value Called By Salomón lugo meterman Crit Value Read Back Y Blood Gas Notified Time 1145 Potassium Carbon Dioxide Anion Gap BUN Creatinine Est GFR ( Amer) Est GFR (Non-Af Amer) POC Glucose (mg/dL) 58 L 152 H Random Glucose Calcium Phosphorus Magnesium Total Bilirubin AST ALT Alkaline Phosphatase Total Creatine Kinase CK-MB (Mass) Troponin I Total Protein Albumin Globulin Albumin/Globulin Ratio Procalcitonin Arterial Blood Potassium 4.4 Venous Blood Potassium 08/12/17 08/12/17 08/12/17 11:48 14:30 15:40 WBC RBC Hgb Hct MCV MCH MCHC RDW Plt Count MPV Neut % (Auto) Lymph % (Auto) Marshall % (Auto) Eos % (Auto) Baso % (Auto) Neut # (Auto) Lymph # (Auto) Marshall # (Auto) Eos # (Auto) Baso # (Auto) Neutrophils % (Manual) Lymphocytes % (Manual) Monocytes % (Manual) Platelet Estimate Poikilocytosis (manual Anisocytosis (manual) PT INR APTT Puncture Site Lf pCO2 30 L pO2 81 HCO3 16.0 L ABG pH 7.28 L ABG Total CO2 15.0 L ABG O2 Saturation 97.7 ABG Base Excess -11.3 L ABG Hemoglobin ABG Carboxyhemoglobin POC ABG HHb (Measured) ABG Methemoglobin [place]co Test Na ABG Potassium 4.2 VBG pH VBG pCO2 VBG HCO3 VBG Total CO2 VBG O2 Sat (Calc) VBG Base Excess VBG Potassium A-a O2 Difference 595.0 Respiratory Index 7.3 Hgb O2 Saturation Sodium 140.0 Chloride 110.0 H Glucose 100 Lactate 7.1 H* Vent Mode Mechanical Rate 16 FiO2 100.0 Tidal Volume 500 PEEP 5 Crit Value Called To Dr shah Crit Value Called By Salomón lugo meterman Crit Value Read Back Y Blood Gas Notified Time 1440 Potassium Carbon Dioxide Anion Gap BUN Creatinine Est GFR ( Amer) Est GFR (Non-Af Amer) POC Glucose (mg/dL) 104 104 Random Glucose Calcium Phosphorus Magnesium Total Bilirubin AST ALT Alkaline Phosphatase Total Creatine Kinase CK-MB (Mass) Troponin I Total Protein Albumin Globulin Albumin/Globulin Ratio Procalcitonin Arterial Blood Potassium 4.2 Venous Blood Potassium Critical Care Progress Note - Nutrition Nutrition: Nutrition Category Date Time Status NPO Diet [DIET] Diets 08/12/17 Breakfast Active Attending/Attestation - Attestation I have personally seen and examined this patient.: Yes I have fully participated in the care of the patient.: Yes I have reviewed all pertinent clinical information: Yes Notes (Text): 08/12/17 16:42 Patient seen and examined in the intensive care unit. Previous events noted Patient on ventilatory support Patient is awake and moving all extremities Started on pressors for hypotension Status post code sepsis On IV antibiotics Seen by cardiology Follow-up ABG and chest x-ray Had hemodialysis yesterday
[2017-08-12] MEDS ORDERED: Pantoprazole 40 mg EC Tab PO SCH (10:00)
[2017-08-12] MEDS: Phenylephrine 30 MG in Sodium Chloride 0.9% 250 ML IV PRN ×2 (10:04→15:33)
[2017-08-12] MEDS ORDERED: Meropenem 500 MG in Sodium Chloride 0.9% 100 ML IVPB STA (10:08)
[2017-08-12] MEDS ORDERED: Vancomycin 1 gm/NS 200 ml 1 GM/200 ML BAG IVPB STA (10:13)
--- NOTE | 2017-08-12 10:45 | CP.PCM.PN ---
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 patient is currently active alert awake, was excited to see me, trying to talk, raised self from bed, discussion of condition afebrile, denies chest pain, had WBC elevation, svheduled HD was cancelled due to low BP Cardio and pulmonary discussion for further management Objective - Vital Signs/Intake and Output Vital Signs (last 24 hours): Temp Pulse Resp BP Pulse Ox 98.7 F 124 H 28 H 61/45 L 98 08/12/17 08:00 08/12/17 10:04 08/12/17 10:04 08/12/17 10:04 08/12/17 10:04 Intake and Output: 08/12/17 08/12/17 06:59 18:59 Intake Total 940 23 Output Total 0 Balance 940 23 - Medications Medications: Current Medications Dextrose (Dextrose 50% Inj) 0 ml IV STAT PRN; Protocol PRN Reason: Hypoglycemia Protocol Last Admin: 08/12/17 09:45 Dose: 50 ml Dextrose (Glutose 15) 0 gm PO ONCE PRN; Protocol PRN Reason: Hypoglycemia Protocol Glucagon (Glucagen Diagnostic Kit) 0 mg IM STAT PRN; Protocol PRN Reason: Hypoglycemia Protocol Dextrose (Dextrose 5% In Water 1000 Ml) 1,000 mls @ 0 mls/hr IV .Q0M PRN; Protocol; Per Protocol PRN Reason: Hypoglycemia Protocol Phenylephrine HCl 30 mg/ (Sodium Chloride) 253 mls @ 10.12 mls/hr IV .Q24H PRN ; Protocol; 20 MCG/MIN PRN Reason: TITRATE PER MD ORDER Last Titration: 08/12/17 10:31 Dose: 30 mcg/min, 15.18 mls/hr Meropenem 500 mg/ Sodium (Chloride) 100 mls @ 100 mls/hr IVPB STAT STA PRN Reason: Protocol Stop: 08/12/17 11:07 Vancomycin/Sodium Chloride (Vancomycin 1 Gm/Ns 200 Ml) 1 gm in 200 mls @ 133.333 mls/hr IVPB STAT STA PRN Reason: Protocol Stop: 08/12/17 11:42 Pantoprazole Sodium (Protonix Inj) 40 mg IVP DAILY CORINA Last Admin: 08/12/17 10:39 Dose: 40 mg - Labs Labs: 08/12/17 05:07 08/12/17 05:07 PT 17.1 SECONDS (9.7-12.2) H 08/12/17 05:07 INR 1.5 08/12/17 05:07 APTT 42 SECONDS (21-34) H 08/12/17 05:07 - Constitutional Appears: Other (intubated but not sedated, awake alert aware of condition, ) - Head Exam Head Exam: ATRAUMATIC, NORMOCEPHALIC - Eye Exam Eye Exam: Normal appearance. absent: Nystagmus - ENT Exam ENT Exam: Mucous Membranes Dry - Respiratory Exam Respiratory Exam: Rales (left side ), NORMAL BREATHING PATTERN - Cardiovascular Exam Cardiovascular Exam: Irregular Rhythm - GI/Abdominal Exam GI & Abdominal Exam: Soft, Normal Bowel Sounds. absent: Tenderness - Extremities Exam Extremities Exam: Full ROM. 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
--- NOTE | 2017-08-12 11:02 | CP.PCM.PN ---
Subjective - Date & Time of Evaluation Date of Evaluation: 08/12/17 Time of Evaluation: 10:59 - Subjective Subjective: seen and examined intubated on 100% fio2 awake responding to commands mild distress to be started on pressor, low bp tachycardic in 140s not on sedation Objective - Vital Signs/Intake and Output Vital Signs (last 24 hours): Temp Pulse Resp BP Pulse Ox 98.7 F 124 H 28 H 61/45 L 98 08/12/17 08:00 08/12/17 10:04 08/12/17 10:04 08/12/17 10:04 08/12/17 10:04 Intake and Output: 08/12/17 08/12/17 06:59 18:59 Intake Total 940 28 Output Total 0 Balance 940 28 - Medications Medications: Current Medications Dextrose (Dextrose 50% Inj) 0 ml IV STAT PRN; Protocol PRN Reason: Hypoglycemia Protocol Last Admin: 08/12/17 09:45 Dose: 50 ml Dextrose (Glutose 15) 0 gm PO ONCE PRN; Protocol PRN Reason: Hypoglycemia Protocol Glucagon (Glucagen Diagnostic Kit) 0 mg IM STAT PRN; Protocol PRN Reason: Hypoglycemia Protocol Dextrose (Dextrose 5% In Water 1000 Ml) 1,000 mls @ 0 mls/hr IV .Q0M PRN; Protocol; Per Protocol PRN Reason: Hypoglycemia Protocol Phenylephrine HCl 30 mg/ (Sodium Chloride) 253 mls @ 10.12 mls/hr IV .Q24H PRN ; Protocol; 20 MCG/MIN PRN Reason: TITRATE PER MD ORDER Last Titration: 08/12/17 10:43 Dose: 40 mcg/min, 20.23 mls/hr Meropenem 500 mg/ Sodium (Chloride) 100 mls @ 100 mls/hr IVPB STAT STA PRN Reason: Protocol Stop: 08/12/17 11:07 Last Admin: 08/12/17 10:45 Dose: 100 mls/hr Vancomycin/Sodium Chloride (Vancomycin 1 Gm/Ns 200 Ml) 1 gm in 200 mls @ 133.333 mls/hr IVPB STAT STA PRN Reason: Protocol Stop: 08/12/17 11:42 Pantoprazole Sodium (Protonix Inj) 40 mg IVP DAILY CORINA Last Admin: 08/12/17 10:39 Dose: 40 mg - Labs Labs: 04/03/18 05:07 08/12/17 05:07 PT 17.1 SECONDS (9.7-12.2) H 08/12/17 05:07 INR 1.5 08/12/17 05:07 APTT 42 SECONDS (21-34) H 08/12/17 05:07 - Constitutional Appears: In Acute Distress, Chronically Ill - Head Exam Head Exam: NORMAL INSPECTION, NORMOCEPHALIC - Eye Exam Eye Exam: Normal appearance, PERRL - ENT Exam Additional comments: et tube - Neck Exam Neck Exam: Normal Inspection - Respiratory Exam Additional comments: tachypneic. b/l coarse breath sounds - Cardiovascular Exam Cardiovascular Exam: Tachycardia, Irregular Rhythm - GI/Abdominal Exam GI & Abdominal Exam: Distended, Soft - Extremities Exam Extremities Exam: Normal Inspection - Neurological Exam Neurological Exam: Awake Additional comments: unable to assess - Skin Skin Exam: Normal Color, Warm Assessment and Plan (1) CHF (congestive heart failure) Status: Acute (2) COPD exacerbation Status: Acute (3) Prostate cancer metastatic to bone Status: Acute (4) Type 2 diabetes mellitus with diabetic nephropathy Status: Acute (5) Anemia Status: Acute (6) Atrial fibrillation Status: Acute (7) End stage renal disease Status: Acute - Assessment and Plan (Free Text) Assessment: # s/p cardiac arrest # hypotension # a fib w/ rvr. cardiomyopathy # esrd # hx of prostate cancer, metastatic # anemia plan: pressor support per icu team on vent echocardiogram plan for hd tomorrow if hemodynamically stable poor prognosis, consider palliative care
--- NOTE | 2017-08-12 11:25 | CARD ---
APPROVED REPORT EKG Measurement Heart [id number] <Conclusion> Atrial fibrillation Left axis deviation ST & T wave abnormality, consider anterolateral ischemia Prolonged QT Abnormal ECG
[2017-08-12 11:41] LABS: ARTERIAL BLOOD GAS HCO3 18.2 mmol/L (21-28); ARTERIAL BLOOD GAS PCO2 28 mm/Hg (35-45); ARTERIAL BLOOD GAS PH 7.35 (7.35-7.45); ARTERIAL BLOOD GAS PO2 118 mm/Hg (80-100); ARTERIAL BLOOD GAS TCO2 16.4 mmol/L (22-28)
--- NOTE | 2017-08-12 11:53 | RAD ---
HISTORY: CHF. COMPARISON: August 11, 2017. Single-view chest 14:48. FINDINGS: LUNGS: Stable pulmonary vascular congestion. PLEURA: No significant pleural effusion identified, no pneumothorax apparent. CARDIOVASCULAR: No significant interval change compared to the prior examination(s). Venous access catheter in stable, satisfactory position. OSSEOUS STRUCTURES: No significant abnormalities. VISUALIZED UPPER ABDOMEN: Normal. OTHER FINDINGS: None. IMPRESSION: No significant interval change compared to the prior examination(s).
--- NOTE | 2017-08-12 12:05 | RAD ---
HISTORY: post intubation COMPARISON: August 11, 2017. Single-view chest 18:47 FINDINGS: LUNGS: Stable pulmonary edema. PLEURA: No significant pleural effusion identified, no pneumothorax apparent. CARDIOVASCULAR: No significant interval change compared to the prior examination(s). Venous access catheter in stable, satisfactory position. OSSEOUS STRUCTURES: No significant abnormalities. VISUALIZED UPPER ABDOMEN: Normal. OTHER FINDINGS: Stable and satisfactory position of endotracheal tube. IMPRESSION: No significant interval change compared to the prior examination(s).
--- NOTE | 2017-08-12 12:19 | CP.PCM.CON ---
History of Present Illness - History of Present Illness History of Present Illness: Palliative Consult requested by Doctor Sonia Michaud for goals of care Patient is a 76 yo male admitted with low BP and blood sugar of 30. Blood sugar improved after Dextrose IV. CXR was significant for granulomatous changes. Patient has known Hx of Prostate cancer and mets to liver and colon. Patient was found with WBC of 11.1 which increased to 14.6. Vanco IV on board. On patient underwent the permacath insertion. Early this am BP dropped to 64/48 , patient was pulsless, and CPR revived him. At present patient is intubated, no sedated, on vasopressors for BP support. PMH: metastatic prostate cancer, ESRD with HD, last HD 2 days ago, asthma, A fib Soc. hx: , lives at home Fam. Hx: Unobtainable from patient due to intubated status Review of Systems - Review of Systems All systems: reviewed and no additional remarkable complaints except Review of Systems: Patient unable to talk, on MV support. Per nursing Code Blue was called earlier this morning for asystoly and low BP. Patient recovered and intubated. Past Patient History - Past Medical History & Family History Past Medical History?: Yes Past Family History: Reviewed and not pertinent - Past Social History Smoking Status: Former Smoker Chewing Tobacco Use: No Cigar Use: No Alcohol: None Drugs: Denies Home Situation {Lives}: With Family - CARDIAC Hx Atrial Fibrillation: Yes Hx Cardia Arrhythmia: Yes Hx Congestive Heart Failure: Yes Hx Hypercholesterolemia: Yes Hx Hypertension: Yes - PULMONARY Hx Asthma: Yes Hx Chronic Obstructive Pulmonary Disease (COPD): Yes - NEUROLOGICAL Hx Neurological Disorder: Yes - HEENT Hx HEENT Problems: Yes Hx Cataracts: Yes (both eyes) - RENAL Hx Chronic Kidney Disease: Yes - ENDOCRINE/METABOLIC Hx Diabetes Mellitus Type 2: Yes - HEMATOLOGICAL/ONCOLOGICAL Hx Anemia: Yes - INTEGUMENTARY Hx Dermatological Problems: No - MUSCULOSKELETAL/RHEUMATOLOGICAL Hx Falls: No - GASTROINTESTINAL Hx Gastrointestinal Disorders: No - GENITOURINARY/GYNECOLOGICAL Hx Genitourinary Disorders: Yes Hx Hematuria: Yes Hx Prostate Cancer: Yes Hx Prostate Problems: Yes Other/Comment: Prostate Sx 10 years ago robotic surgey 2005 - PSYCHIATRIC Hx Substance Use: No - SURGICAL HISTORY Hx Surgeries: Yes Hx Coronary Artery Bypass Graft: Yes (QUADRUPLE BYPASS in 2005 at [facility] - ANESTHESIA Hx Anesthesia: Yes Hx Anesthesia Reactions: No Hx Malignant Hyperthermia: No Meds Allergies/Adverse Reactions: Allergies Allergy/AdvReac Type Severity Reaction Status Date / Time warfarin sodium Allergy Intermediate RASH Verified 08/11/17 07:15 [From Coumadin] - Medications Medications: Current Medications Dextrose (Dextrose 50% Inj) 0 ml IV STAT PRN; Protocol PRN Reason: Hypoglycemia Protocol Last Admin: 08/12/17 09:45 Dose: 50 ml Dextrose (Glutose 15) 0 gm PO ONCE PRN; Protocol PRN Reason: Hypoglycemia Protocol Glucagon (Glucagen Diagnostic Kit) 0 mg IM STAT PRN; Protocol PRN Reason: Hypoglycemia Protocol Dextrose (Dextrose 5% In Water 1000 Ml) 1,000 mls @ 0 mls/hr IV .Q0M PRN; Protocol; Per Protocol PRN Reason: Hypoglycemia Protocol Phenylephrine HCl 30 mg/ (Sodium Chloride) 253 mls @ 10.12 mls/hr IV .Q24H PRN ; Protocol; 20 MCG/MIN PRN Reason: TITRATE PER MD ORDER Last Titration: 08/12/17 11:15 Dose: 60 mcg/min, 30.36 mls/hr Lorazepam (Ativan) 1 mg IVP Q6H PRN PRN Reason: Agitation Pantoprazole Sodium (Protonix Inj) 40 mg IVP DAILY CORINA Last Admin: 08/12/17 10:39 Dose: 40 mg Physical Exam - Constitutional Appears: In Acute Distress - Head Exam Head Exam: ATRAUMATIC, NORMAL INSPECTION, NORMOCEPHALIC - Eye Exam Eye Exam: EOMI, Normal appearance, PERRL Pupil Exam: NORMAL ACCOMODATION, PERRL - ENT Exam ENT Exam: Mucous Membranes Dry Additional comments: ETT - Neck Exam Neck exam: Positive for: Normal Inspection - Respiratory Exam Additional comments: On MV support - Cardiovascular Exam Cardiovascular Exam: Tachycardia - GI/Abdominal Exam GI & Abdominal Exam: Diminished Bowel Sounds - Rectal Exam Rectal Exam: Deferred - Exam Exam: NORMAL INSPECTION - Extremities Exam Extremities exam: Positive for: normal inspection - Back Exam Back exam: NORMAL INSPECTION - Neurological Exam Neurological exam: Alert - Psychiatric Exam Psychiatric exam: Anxious - Skin Skin Exam: Normal Color Results - Vital Signs Recent Vital Signs: Last Vital Signs Temp 99.7 F H 08/12/17 12:00 Pulse 123 H 08/12/17 12:02 Resp 35 H 08/12/17 12:02 BP 112/31 L 08/12/17 12:03 Pulse Ox 100 08/12/17 12:00 - Labs Result Diagrams: 08/12/17 05:07 08/12/17 05:07 Labs: Laboratory Results - last 24 hr 08/11/17 08/11/17 08/11/17 14:47 16:24 17:29 WBC RBC Hgb Hct MCV MCH MCHC RDW Plt Count MPV Neut % (Auto) Lymph % (Auto) Young % (Auto) Eos % (Auto) Baso % (Auto) Neut # (Auto) Lymph # (Auto) Young # (Auto) Eos # (Auto) Baso # (Auto) Neutrophils % (Manual) Lymphocytes % (Manual) Monocytes % (Manual) Platelet Estimate Poikilocytosis (manual Anisocytosis (manual) PT INR APTT Puncture Site pCO2 pO2 HCO3 ABG pH ABG Total CO2 ABG O2 Saturation ABG Base Excess ABG Hemoglobin ABG Carboxyhemoglobin POC ABG HHb (Measured) ABG Methemoglobin [place] Test ABG Potassium VBG pH VBG pCO2 VBG HCO3 VBG Total CO2 VBG O2 Sat (Calc) VBG Base Excess VBG Potassium A-a O2 Difference Respiratory Index Hgb O2 Saturation Sodium Chloride Glucose Lactate Vent Mode Mechanical Rate FiO2 Tidal Volume PEEP Crit Value Called To Crit Value Called By Crit Value Read Back Blood Gas Notified Time Potassium Carbon Dioxide Anion Gap BUN Creatinine Est GFR ( Amer) Est GFR (Non-Af Amer) POC Glucose (mg/dL) 189 H 126 H 102 Random Glucose Calcium Phosphorus Magnesium Total Bilirubin AST ALT Alkaline Phosphatase Total Creatine Kinase CK-MB (Mass) Troponin I Total Protein Albumin Globulin Albumin/Globulin Ratio Procalcitonin Arterial Blood Potassium Venous Blood Potassium 08/11/17 08/11/17 08/11/17 19:10 19:35 19:35 WBC RBC Hgb Hct MCV MCH MCHC RDW Plt Count MPV Neut % (Auto) Lymph % (Auto) Young % (Auto) Eos % (Auto) Baso % (Auto) Neut # (Auto) Lymph # (Auto) Young # (Auto) Eos # (Auto) Baso # (Auto) Neutrophils % (Manual) Lymphocytes % (Manual) Monocytes % (Manual) Platelet Estimate Poikilocytosis (manual Anisocytosis (manual) PT INR APTT Puncture Site Rba pCO2 18 L* pO2 68 L HCO3 17.2 L ABG pH 7.43 ABG Total CO2 12.5 L ABG O2 Saturation 94.6 L ABG Base Excess -9.8 L ABG Hemoglobin ABG Carboxyhemoglobin POC ABG HHb (Measured) ABG Methemoglobin [place] Test Na ABG Potassium 4.8 VBG pH VBG pCO2 VBG HCO3 VBG Total CO2 VBG O2 Sat (Calc) VBG Base Excess VBG Potassium A-a O2 Difference 230.0 Respiratory Index 3.4 Hgb O2 Saturation Sodium 135.0 139 Chloride 102.0 101 Glucose 72 L Lactate 6.7 H* Vent Mode Mechanical Rate FiO2 45.0 Tidal Volume PEEP Crit Value Called To Dr. duffy Crit Value Called By Bette rt Crit Value Read Back Y Blood Gas Notified Time 1915 Potassium 5.2 Carbon Dioxide 12 L Anion Gap 31 H BUN 69 H Creatinine 5.3 H Est GFR ( Amer) 13 Est GFR (Non-Af Amer) 11 POC Glucose (mg/dL) Random Glucose 76 Calcium 8.1 L Phosphorus 7.7 H Magnesium 2.0 Total Bilirubin 1.3 AST 313 H ALT 91 H Alkaline Phosphatase 108 Total Creatine Kinase CK-MB (Mass) Troponin I 1.5600 H* Total Protein 6.2 L Albumin 2.8 L D Globulin 3.4 Albumin/Globulin Ratio 0.8 L Procalcitonin 6.73 H Arterial Blood Potassium 4.8 Venous Blood Potassium 08/11/17 08/11/17 08/11/17 19:35 21:38 23:40 WBC 11.1 H RBC 3.44 L Hgb 10.3 L D Hct 31.3 L MCV 90.8 MCH 29.9 MCHC 33.0 RDW 19.3 H Plt Count 101 L D MPV 10.0 Neut % (Auto) 84.4 H Lymph % (Auto) 9.3 L Young % (Auto) 5.1 Eos % (Auto) 0.0 Baso % (Auto) 1.2 Neut # (Auto) 9.4 H Lymph # (Auto) 1.0 Young # (Auto) 0.6 Eos # (Auto) 0.0 Baso # (Auto) 0.1 Neutrophils % (Manual) 90 H Lymphocytes % (Manual) 6 L Monocytes % (Manual) 4 Platelet Estimate Slightly decreased L Poikilocytosis (manual Slight Anisocytosis (manual) Slight PT INR APTT Puncture Site pCO2 pO2 26 L HCO3 ABG pH ABG Total CO2 ABG O2 Saturation ABG Base Excess ABG Hemoglobin ABG Carboxyhemoglobin POC ABG HHb (Measured) ABG Methemoglobin [place] Test ABG Potassium VBG pH 7.34 VBG pCO2 64 H VBG HCO3 28.5 VBG Total CO2 36.5 H VBG O2 Sat (Calc) 40.8 VBG Base Excess 6.5 H VBG Potassium 1.8 L* A-a O2 Difference Respiratory Index Hgb O2 Saturation Sodium 136.0 Chloride 97.0 L Glucose 95 Lactate 0.9 Vent Mode Mechanical Rate FiO2 Tidal Volume PEEP Crit Value Called To [facility] nurse michelle Crit Value Called By Bette rt Crit Value Read Back Y Blood Gas Notified Time 2344 Potassium Carbon Dioxide Anion Gap BUN Creatinine Est GFR ( Amer) Est GFR (Non-Af Amer) POC Glucose (mg/dL) 95 Random Glucose Calcium Phosphorus Magnesium Total Bilirubin AST ALT Alkaline Phosphatase Total Creatine Kinase CK-MB (Mass) Troponin I Total Protein Albumin Globulin Albumin/Globulin Ratio Procalcitonin Arterial Blood Potassium Venous Blood Potassium 1.8 L* 08/12/17 08/12/17 08/12/17 00:17 05:07 05:07 WBC 14.6 H RBC 3.57 L Hgb 10.6 L Hct 33.7 L MCV 94.3 H D MCH 29.6 MCHC 31.4 L RDW 19.8 H Plt Count 107 L MPV 10.6 Neut % (Auto) 82.3 H Lymph % (Auto) 15.0 L Young % (Auto) 2.2 Eos % (Auto) 0.0 Baso % (Auto) 0.5 Neut # (Auto) 12.0 H Lymph # (Auto) 2.2 Young # (Auto) 0.3 Eos # (Auto) 0.0 Baso # (Auto) 0.1 Neutrophils % (Manual) Lymphocytes % (Manual) Monocytes % (Manual) Platelet Estimate Poikilocytosis (manual Anisocytosis (manual) PT INR APTT Puncture Site pCO2 pO2 HCO3 ABG pH ABG Total CO2 ABG O2 Saturation ABG Base Excess ABG Hemoglobin ABG Carboxyhemoglobin POC ABG HHb (Measured) ABG Methemoglobin [place] Test ABG Potassium VBG pH VBG pCO2 VBG HCO3 VBG Total CO2 VBG O2 Sat (Calc) VBG Base Excess VBG Potassium A-a O2 Difference Respiratory Index Hgb O2 Saturation Sodium 142 140 Chloride 97 L 99 Glucose Lactate Vent Mode Mechanical Rate FiO2 Tidal Volume PEEP Crit Value Called To Crit Value Called By Crit Value Read Back Blood Gas Notified Time Potassium 3.7 4.8 Carbon Dioxide 28 14 L Anion Gap 21 H 32 H BUN 22 H 32 H Creatinine 2.1 H 3.3 H Est GFR ( Amer) 37 22 Est GFR (Non-Af Amer) 31 18 POC Glucose (mg/dL) Random Glucose 107 108 Calcium 7.9 L 7.9 L Phosphorus 7.0 H Magnesium 2.2 Total Bilirubin 1.6 H AST 883 H D ALT 235 H D Alkaline Phosphatase 121 Total Creatine Kinase 234 H CK-MB (Mass) 2.95 Troponin I 1.2800 H* Total Protein 6.3 Albumin 2.9 L Globulin 3.4 Albumin/Globulin Ratio 0.9 L Procalcitonin Arterial Blood Potassium Venous Blood Potassium 08/12/17 08/12/17 08/12/17 05:07 05:58 06:17 WBC RBC Hgb Hct MCV MCH MCHC RDW Plt Count MPV Neut % (Auto) Lymph % (Auto) Young % (Auto) Eos % (Auto) Baso % (Auto) Neut # (Auto) Lymph # (Auto) Young # (Auto) Eos # (Auto) Baso # (Auto) Neutrophils % (Manual) Lymphocytes % (Manual) Monocytes % (Manual) Platelet Estimate Poikilocytosis (manual Anisocytosis (manual) PT 17.1 H INR 1.5 APTT 42 H Puncture Site Femoral pCO2 27 L pO2 131 H HCO3 13.7 L ABG pH 7.24 L ABG Total CO2 12.4 L ABG O2 Saturation 99.0 H ABG Base Excess -14.4 L ABG Hemoglobin 9.0 L ABG Carboxyhemoglobin 1.8 H POC ABG HHb (Measured) 1.0 ABG Methemoglobin 0.7 [place] Test Na ABG Potassium VBG pH VBG pCO2 VBG HCO3 VBG Total CO2 VBG O2 Sat (Calc) VBG Base Excess VBG Potassium A-a O2 Difference 548.0 Respiratory Index 4.2 Hgb O2 Saturation 96.6 Sodium Chloride Glucose Lactate Vent Mode Prvc Mechanical Rate 15 FiO2 100.0 Tidal Volume 500 PEEP 5 Crit Value Called To Crit Value Called By Crit Value Read Back Blood Gas Notified Time Potassium Carbon Dioxide Anion Gap BUN Creatinine Est GFR ( Amer) Est GFR (Non-Af Amer) POC Glucose (mg/dL) 84 Random Glucose Calcium Phosphorus Magnesium Total Bilirubin AST ALT Alkaline Phosphatase Total Creatine Kinase CK-MB (Mass) Troponin I Total Protein Albumin Globulin Albumin/Globulin Ratio Procalcitonin Arterial Blood Potassium Venous Blood Potassium 08/12/17 08/12/17 08/12/17 07:30 09:44 09:46 WBC RBC Hgb Hct MCV MCH MCHC RDW Plt Count MPV Neut % (Auto) Lymph % (Auto) Young % (Auto) Eos % (Auto) Baso % (Auto) Neut # (Auto) Lymph # (Auto) Young # (Auto) Eos # (Auto) Baso # (Auto) Neutrophils % (Manual) Lymphocytes % (Manual) Monocytes % (Manual) Platelet Estimate Poikilocytosis (manual Anisocytosis (manual) PT INR APTT Puncture Site pCO2 pO2 HCO3 ABG pH ABG Total CO2 ABG O2 Saturation ABG Base Excess ABG Hemoglobin ABG Carboxyhemoglobin POC ABG HHb (Measured) ABG Methemoglobin [place] Test ABG Potassium VBG pH VBG pCO2 VBG HCO3 VBG Total CO2 VBG O2 Sat (Calc) VBG Base Excess VBG Potassium A-a O2 Difference Respiratory Index Hgb O2 Saturation Sodium Chloride Glucose Lactate Vent Mode Mechanical Rate FiO2 Tidal Volume PEEP Crit Value Called To Crit Value Called By Crit Value Read Back Blood Gas Notified Time Potassium Carbon Dioxide Anion Gap BUN Creatinine Est GFR ( Amer) Est GFR (Non-Af Amer) POC Glucose (mg/dL) 71 52 L 58 L Random Glucose Calcium Phosphorus Magnesium Total Bilirubin AST ALT Alkaline Phosphatase Total Creatine Kinase CK-MB (Mass) Troponin I Total Protein Albumin Globulin Albumin/Globulin Ratio Procalcitonin Arterial Blood Potassium Venous Blood Potassium 08/12/17 08/12/17 08/12/17 10:11 11:35 11:48 WBC RBC Hgb Hct MCV MCH MCHC RDW Plt Count MPV Neut % (Auto) Lymph % (Auto) Young % (Auto) Eos % (Auto) Baso % (Auto) Neut # (Auto) Lymph # (Auto) Young # (Auto) Eos # (Auto) Baso # (Auto) Neutrophils % (Manual) Lymphocytes % (Manual) Monocytes % (Manual) Platelet Estimate Poikilocytosis (manual Anisocytosis (manual) PT INR APTT Puncture Site Lf pCO2 28 L pO2 118 H HCO3 18.2 L ABG pH 7.35 ABG Total CO2 16.4 L ABG O2 Saturation 99.0 H ABG Base Excess -8.6 L ABG Hemoglobin ABG Carboxyhemoglobin POC ABG HHb (Measured) ABG Methemoglobin [place] Test Na ABG Potassium 4.4 VBG pH VBG pCO2 VBG HCO3 VBG Total CO2 VBG O2 Sat (Calc) VBG Base Excess VBG Potassium A-a O2 Difference 560.0 Respiratory Index 4.7 Hgb O2 Saturation Sodium 139.0 Chloride 104.0 Glucose 133 H Lactate 6.9 H* Vent Mode Mechanical Rate 16 FiO2 100.0 Tidal Volume 500 PEEP 5 Crit Value Called To Dr shah Crit Value Called By [place] lugo plasticator Crit Value Read Back Y Blood Gas Notified Time 1145 Potassium Carbon Dioxide Anion Gap BUN Creatinine Est GFR ( Amer) Est GFR (Non-Af Amer) POC Glucose (mg/dL) 152 H 104 Random Glucose Calcium Phosphorus Magnesium Total Bilirubin AST ALT Alkaline Phosphatase Total Creatine Kinase CK-MB (Mass) Troponin I Total Protein Albumin Globulin Albumin/Globulin Ratio Procalcitonin Arterial Blood Potassium 4.4 Venous Blood Potassium Assessment & Plan - Assessment and Plan (Free Text) Assessment: Palliative consult There is no advance directive on chart, PPS 10% I reviewed Medical records, all diagnostic studies, examined patient in the bed and discussed his status with nursing. Patient is alert, on MV support, makes eye contacts and shows understating when talked to. Patient is with affect that is anxious. Admits to feeling restless when asked. I explained that Ativan could not be given just yet due to low BP. I encouraged patient to remain positive and patient until the ETT comes out. Breath sounds are diminished, regular RR, there is no excess secretion production. Normal bowel sounds. Able to move all extremities. BP 104/68, HR 118. afebrile. last TRPI elevated. Platelets count low 103, puts him at risks for abnormal bleeding. Hb 10.6. Per nursing, there was no rectal bleeding. In this one way discussion, I emotionally supported patient and reassured of being taken care of. I also informed patient I was to ask his to meet with me. He agreed. Per Doctor Corea note, patient and family are aware of advanced cancer and poor prognosis. Patient's did not answer the phone when I called and I will ask nurses to call me when the comes. Impression * This is chronically ill man with advanced and metastatic disease * Patient is S/P Code Blue this morning on MV support now * BP still low, vasopressors started * Patient is restless in bed, the ETT makes him uncomfortable Suggestion * The ultimate goals for this patient should be successful weaning from the MV * BP support I will meet with patient's life to discuss goals of care . Patient would benefit from Palliative Care at [facility] post discharge. The Hospice Care is not an option as patient is on HD .If HD is still advised I do not think patient would consider stopping it .
--- NOTE | 2017-08-12 12:45 | PCM.SEPTIC ---
Sepsis Progress Note - Reassessment Type Date of Evaluation: 08/12/17 Time of Evaluation: 15:00 Reassessment Type: Non-invasive reassessment - Non Invasive Reassessment Were the most recent vital sign reviewed: Yes Vital Sign (Latest): Temp Pulse Resp BP Pulse Ox 99.7 F H 134 H 35 H 112/31 L 100 08/12/17 12:00 08/12/17 12:20 08/12/17 12:02 08/12/17 12:03 08/12/17 12:20 Cardiovascular: Yes: Tachycardia, Irregularly Irregular Respiratory: Yes: Decreased Breath Sounds, Crackles, Rhonchi. No: Respiratory Distress Capillary Refill: Normal (Less than 2 sec) Pulses: Normal Radial, Normal Dorsalis Pedis, Normal Posterior Tibialis Skin: Normal Color, Warm, Dry - Invasive Reassessment (complete 2 of 4) Was a Central Venous Pressure Measurement obtained within 6 Hours after the presentation of septic shock: No Was a central venous oxygen measurement obtained within 6 hours after the presentation of septic shock: No Was a bedside cardiovascular ultrasound performed within 6 hours after the presentation of septic shock: No Was a passive leg raise performed or was a fluid challenge performed within 6 hrs of the initial fluid bolus: No Passive Leg Raise Result: Not Applicable Fluid Challenge performed: No
[2017-08-12 14:38] LABS: ARTERIAL BLOOD GAS O2 SAT 97.7 % (95-98); ARTERIAL BLOOD GAS PCO2 30 mm/Hg (35-45); ARTERIAL BLOOD GAS PH 7.28 (7.35-7.45); ARTERIAL BLOOD GAS PO2 81 mm/Hg (80-100)
--- NOTE | 2017-08-12 15:13 | PCM.PROC ---
Procedures Attestation:: I certify that I have explained the specified Operation(s) or Procedure(s), risks, benefits and reasonable alternatives to the Patient and/or other person responsible. The opportunity was given to ask questions and all questions answered - Central Line Placement Right Femoral Triple Lumen Catheter Aseptic technique was employed throughout the procedure: Hand Hygiene done prior to procedure, Full sterile barriers (mask, hair cover, sterile gown, sterile gloves), Full body sterile drape, Chloraprep Antiseptic: 30 second prep for IJ or SC sites, Chloraprep Antiseptic: 2 minute prep for Femoral CVP Time Out Performed: Yes Pt. Placed on Pulse Ox Monitor: Yes Central Line Prep: Chlorhexidine-Alcohol Combination Local Anesthesia Used: Lidocaine 1% Amount of Anesthesia Used (mls): 5 Ultrasound Used for Placement: No Central Line Lumen Inserted: triple Central Line Length: 16 cm Post Procedure: Sutured in Place, Good Blood Return, All Ports Aspirated, Flushed, Capped, Sterile Dressing Applied Secured by: Suture Post procedure dressing: Chlorhexidine disc (Biopatch) Post Procedure X-Ray: No Patient Tolerated Procedure: Well, No Complications Immediate Complications: None Additional Comments: Telephone consent obtained from
[2017-08-12] MEDS ORDERED: Sodium Bicarbonate (8.4%) 50 Meq Syringe IVP ONE (15:45)
--- NOTE | 2017-08-12 17:47 | CP.PCM.CON ---
History of Present Illness - History of Present Illness History of Present Illness: INFECTIOUS DISEASE CONSULT; HPI; 76-year-old male with history off ESRD, on hemodialysis MWF, CAD S/P CABG, ischemic cardiomyopathy, on LifeVest, atrial fibrillation not on anticoagulation secondary to GI bleed, DM type II, metastatic prostate cancer, colon cancer, who was admitted on 08/11/17 with hypotension, and temperature of 30 , and shortness of breath and weakness. Patient was recently discharged from group home 2 days ago. Patient responded to IV dextrose. CXR on admission consistent with moderate venous congestion and bibasilar airspace opacities with right infrahilar consolidative changes. Also upper lobe granulomatous changes seen. Patient was also found to have elevated troponins. Patient was found to have malfunctioning AV fistula and could not go for hemodialysis. Patient had an emergency right permacatheter placed on 08/11/17. Postoperatively patient went upstairs for hemodialysis but before the session started patient became hypotensive and was transferred to ICU for further monitoring. Early this morning blood pressure dropped to 64/48 and patient was pulseless and CPR revived him. At present patient is intubated on vasopressor for blood pressure support. Patient is anxious but not sedated because of hypotension. Patient presently on IV vancomycin x 1 dose and was started on Merrem 500 mg every 12 hourly by the medical team Infectious disease consultation requested by PMD - DR JAMIL for evaluation of shock/septic versus cardiogenic. History obtained mainly from the staff as patient presently intubated. Patient awake but very anxious. REPORTED BY THE NURSE PATIENT ALSO HAS A RIGHT FEMORAL TLC PLACED TODAY. Medical History: ESRD on HD, CAD s/p CABG, Afib not on AC, Diabetes Mellitus, COPD, Prostate cancer,COLON [place]. Medications: Cardizem 90mg Q8H, Ferrous glucagon 324mg PO TID, Toprol XL 25mg PO daily, Levemir 10 units HS, Crestor 5mg PO HS reviewed from EMR present medications. Surgical History: CABG x4 in 2005 in [facility], av-Fistula malfunctioning now. Social History: Former smoker, denies alcohol, drug use; lives with ALLERGY; WARFARIN-RASH. Review of Systems - Review of Systems Systems not reviewed;Unavailable: Intubated Past Patient History - Past Medical History & Family History Past Medical History?: Yes Past Family History: Reviewed and not pertinent - Past Social History Smoking Status: Former Smoker Chewing Tobacco Use: No Cigar Use: No Alcohol: None Drugs: Denies Home Situation {Lives}: With Family - CARDIAC Hx Atrial Fibrillation: Yes Hx Cardia Arrhythmia: Yes Hx Congestive Heart Failure: Yes Hx Hypercholesterolemia: Yes Hx Hypertension: Yes - PULMONARY Hx Asthma: Yes Hx Chronic Obstructive Pulmonary Disease (COPD): Yes - NEUROLOGICAL Hx Neurological Disorder: Yes - HEENT Hx HEENT Problems: Yes Hx Cataracts: Yes (both eyes) - RENAL Hx Chronic Kidney Disease: Yes - ENDOCRINE/METABOLIC Hx Diabetes Mellitus Type 2: Yes - HEMATOLOGICAL/ONCOLOGICAL Hx Anemia: Yes - INTEGUMENTARY Hx Dermatological Problems: No - MUSCULOSKELETAL/RHEUMATOLOGICAL Hx Falls: No - GASTROINTESTINAL Hx Gastrointestinal Disorders: No - GENITOURINARY/GYNECOLOGICAL Hx Genitourinary Disorders: Yes Hx Hematuria: Yes Hx Prostate Cancer: Yes Hx Prostate Problems: Yes Other/Comment: Prostate Sx 10 years ago robotic surgey 2005 - PSYCHIATRIC Hx Substance Use: No - SURGICAL HISTORY Hx Surgeries: Yes Hx Coronary Artery Bypass Graft: Yes (QUADRUPLE BYPASS in 2005 at [facility].) - ANESTHESIA Hx Anesthesia: Yes Hx Anesthesia Reactions: No Hx Malignant Hyperthermia: No Meds Allergies/Adverse Reactions: Allergies Allergy/AdvReac Type Severity Reaction Status Date / Time warfarin sodium Allergy Intermediate RASH Verified 08/11/17 07:15 [From Coumadin] - Medications Medications: Current Medications Dextrose (Dextrose 50% Inj) 0 ml IV STAT PRN; Protocol PRN Reason: Hypoglycemia Protocol Last Admin: 08/12/17 09:45 Dose: 50 ml Dextrose (Glutose 15) 0 gm PO ONCE PRN; Protocol PRN Reason: Hypoglycemia Protocol Glucagon (Glucagen Diagnostic Kit) 0 mg IM STAT PRN; Protocol PRN Reason: Hypoglycemia Protocol Dextrose (Dextrose 5% In Water 1000 Ml) 1,000 mls @ 0 mls/hr IV .Q0M PRN; Protocol; Per Protocol PRN Reason: Hypoglycemia Protocol Phenylephrine HCl 30 mg/ (Sodium Chloride) 253 mls @ 10.12 mls/hr IV .Q24H PRN ; Protocol; 20 MCG/MIN PRN Reason: TITRATE PER MD ORDER Last Admin: 08/12/17 15:33 Dose: 180 mcg/min, 91.08 mls/hr Meropenem 500 mg/ Sodium (Chloride) 100 mls @ 100 mls/hr IVPB Q12H [place] PRN Reason: Protocol Norepinephrine Bitartrate 4 mg (/ Dextrose) 254 mls @ 15.24 mls/hr IV .[id number] PRN; Protocol; 4 MCG/MIN PRN Reason: TITRATE PER MD ORDER Last Titration: 08/12/17 17:18 Dose: 12 mcg/min, 45.72 mls/hr Lorazepam (Ativan) 1 mg IVP Q6H PRN PRN Reason: Agitation Last Admin: 08/12/17 17:17 Dose: 1 mg Pantoprazole Sodium (Protonix Inj) 40 mg IVP DAILY [facility] Last Admin: 08/12/17 10:39 Dose: 40 mg Physical Exam - Constitutional Appears: No Acute Distress (intubated.), Cachectic - Head Exam Head Exam: NORMAL INSPECTION - Eye Exam Eye Exam: EOMI, PERRL. absent: Nystagmus - ENT Exam ENT Exam: Mucous Membranes Moist - Neck Exam Neck exam: Positive for: Normal Inspection - Respiratory Exam Respiratory Exam: Prolonged Expiratory Phase, Rhonchi (bilateral rhonchi and right-sided more than the left.) - Cardiovascular Exam Cardiovascular Exam: Tachycardia, Irregular Rhythm, +S1, +S2 - GI/Abdominal Exam GI & Abdominal Exam: Normal Bowel Sounds, Soft. absent: Organomegaly, Tenderness - Extremities Exam Extremities exam: Positive for: pedal pulses present (but weak). Negative for: calf tenderness, pedal edema (lower extremities bilateral Venodyne, feels cold to touch, and some skin mottling noted lower extremities.) - Neurological Exam Neurological exam: Alert, CN II-XII Intact, Oriented x3, Reflexes Normal - Psychiatric Exam Psychiatric exam: Anxious - Skin Skin Exam: Diaphoretic, Mottled Results - Vital Signs Recent Vital Signs: Last Vital Signs Temp 100.0 F H 08/12/17 16:00 Pulse 150 H 08/12/17 16:07 Resp 32 H 08/12/17 16:07 BP 103/45 L 08/12/17 16:07 Pulse Ox 98 08/12/17 16:00 - Labs Result Diagrams: 08/13/17 06:01 08/13/17 06:02 Labs: Laboratory Results - last 24 hr 08/11/17 08/11/17 08/11/17 19:10 19:35 19:35 WBC RBC Hgb Hct MCV MCH MCHC RDW Plt Count MPV Neut % (Auto) Lymph % (Auto) [place] % (Auto) Eos % (Auto) Baso % (Auto) Neut # (Auto) Lymph # (Auto) [place] # (Auto) Eos # (Auto) Baso # (Auto) Neutrophils % (Manual) Lymphocytes % (Manual) Monocytes % (Manual) Platelet Estimate Poikilocytosis (manual Anisocytosis (manual) PT INR APTT Puncture Site Rba pCO2 18 L* pO2 68 L HCO3 17.2 L ABG pH 7.43 ABG Total CO2 12.5 L ABG O2 Saturation 94.6 L ABG Base Excess -9.8 L ABG Hemoglobin ABG Carboxyhemoglobin POC ABG HHb (Measured) ABG Methemoglobin [place] Test Na ABG Potassium 4.8 VBG pH VBG pCO2 VBG HCO3 VBG Total CO2 VBG O2 Sat (Calc) VBG Base Excess VBG Potassium A-a O2 Difference 230.0 Respiratory Index 3.4 Hgb O2 Saturation Sodium 135.0 139 Chloride 102.0 101 Glucose 72 L Lactate 6.7 H* Vent Mode Mechanical Rate FiO2 45.0 Tidal Volume PEEP Crit Value Called To Dr. duffy Crit Value Called By Bette rt Crit Value Read Back Y Blood Gas Notified Time 1915 Potassium 5.2 Carbon Dioxide 12 L Anion Gap 31 H BUN 69 H Creatinine 5.3 H Est GFR ( Amer) 13 Est GFR (Non-Af Amer) 11 POC Glucose (mg/dL) Random Glucose 76 Calcium 8.1 L Phosphorus 7.7 H Magnesium 2.0 Total Bilirubin 1.3 AST 313 H ALT 91 H Alkaline Phosphatase 108 Total Creatine Kinase CK-MB (Mass) Troponin I 1.5600 H* Total Protein 6.2 L Albumin 2.8 L D Globulin 3.4 Albumin/Globulin Ratio 0.8 L Procalcitonin 6.73 H Arterial Blood Potassium 4.8 Venous Blood Potassium 08/11/17 08/11/17 08/11/17 19:35 21:38 23:40 WBC 11.1 H RBC 3.44 L Hgb 10.3 L D Hct 31.3 L MCV 90.8 MCH 29.9 MCHC 33.0 RDW 19.3 H Plt Count 101 L D MPV 10.0 Neut % (Auto) 84.4 H Lymph % (Auto) 9.3 L [place] % (Auto) 5.1 Eos % (Auto) 0.0 Baso % (Auto) 1.2 Neut # (Auto) 9.4 H Lymph # (Auto) 1.0 [place] # (Auto) 0.6 Eos # (Auto) 0.0 Baso # (Auto) 0.1 Neutrophils % (Manual) 90 H Lymphocytes % (Manual) 6 L Monocytes % (Manual) 4 Platelet Estimate Slightly decreased L Poikilocytosis (manual Slight Anisocytosis (manual) Slight PT INR APTT Puncture Site pCO2 pO2 26 L HCO3 ABG pH ABG Total CO2 ABG O2 Saturation ABG Base Excess ABG Hemoglobin ABG Carboxyhemoglobin POC ABG HHb (Measured) ABG Methemoglobin [place] Test ABG Potassium VBG pH 7.34 VBG pCO2 64 H VBG HCO3 28.5 VBG Total CO2 36.5 H VBG O2 Sat (Calc) 40.8 VBG Base Excess 6.5 H VBG Potassium 1.8 L* A-a O2 Difference Respiratory Index Hgb O2 Saturation Sodium 136.0 Chloride 97.0 L Glucose 95 Lactate 0.9 Vent Mode Mechanical Rate FiO2 Tidal Volume PEEP Crit Value Called To [facility] nurse michelle Crit Value Called By Bette rt Crit Value Read Back Y Blood Gas Notified Time 2344 Potassium Carbon Dioxide Anion Gap BUN Creatinine Est GFR ( Amer) Est GFR (Non-Af Amer) POC Glucose (mg/dL) 95 Random Glucose Calcium Phosphorus Magnesium Total Bilirubin AST ALT Alkaline Phosphatase Total Creatine Kinase CK-MB (Mass) Troponin I Total Protein Albumin Globulin Albumin/Globulin Ratio Procalcitonin Arterial Blood Potassium Venous Blood Potassium 1.8 L* 08/12/17 08/12/17 08/12/17 00:17 05:07 05:07 WBC 14.6 H RBC 3.57 L Hgb 10.6 L Hct 33.7 L MCV 94.3 H D MCH 29.6 MCHC 31.4 L RDW 19.8 H Plt Count 107 L MPV 10.6 Neut % (Auto) 82.3 H Lymph % (Auto) 15.0 L [place] % (Auto) 2.2 Eos % (Auto) 0.0 Baso % (Auto) 0.5 Neut # (Auto) 12.0 H Lymph # (Auto) 2.2 [place] # (Auto) 0.3 Eos # (Auto) 0.0 Baso # (Auto) 0.1 Neutrophils % (Manual) Lymphocytes % (Manual) Monocytes % (Manual) Platelet Estimate Poikilocytosis (manual Anisocytosis (manual) PT INR APTT Puncture Site pCO2 pO2 HCO3 ABG pH ABG Total CO2 ABG O2 Saturation ABG Base Excess ABG Hemoglobin ABG Carboxyhemoglobin POC ABG HHb (Measured) ABG Methemoglobin [place] Test ABG Potassium VBG pH VBG pCO2 VBG HCO3 VBG Total CO2 VBG O2 Sat (Calc) VBG Base Excess VBG Potassium A-a O2 Difference Respiratory Index Hgb O2 Saturation Sodium 142 140 Chloride 97 L 99 Glucose Lactate Vent Mode Mechanical Rate FiO2 Tidal Volume PEEP Crit Value Called To Crit Value Called By Crit Value Read Back Blood Gas Notified Time Potassium 3.7 4.8 Carbon Dioxide 28 14 L Anion Gap 21 H 32 H BUN 22 H 32 H Creatinine 2.1 H 3.3 H Est GFR ( Amer) 37 22 Est GFR (Non-Af Amer) 31 18 POC Glucose (mg/dL) Random Glucose 107 108 Calcium 7.9 L 7.9 L Phosphorus 7.0 H Magnesium 2.2 Total Bilirubin 1.6 H AST 883 H D ALT 235 H D Alkaline Phosphatase 121 Total Creatine Kinase 234 H CK-MB (Mass) 2.95 Troponin I 1.2800 H* Total Protein 6.3 Albumin 2.9 L Globulin 3.4 Albumin/Globulin Ratio 0.9 L Procalcitonin Arterial Blood Potassium Venous Blood Potassium 08/12/17 08/12/17 08/12/17 05:07 05:58 06:17 WBC RBC Hgb Hct MCV MCH MCHC RDW Plt Count MPV Neut % (Auto) Lymph % (Auto) [place] % (Auto) Eos % (Auto) Baso % (Auto) Neut # (Auto) Lymph # (Auto) [place] # (Auto) Eos # (Auto) Baso # (Auto) Neutrophils % (Manual) Lymphocytes % (Manual) Monocytes % (Manual) Platelet Estimate Poikilocytosis (manual Anisocytosis (manual) PT 17.1 H INR 1.5 APTT 42 H Puncture Site Femoral pCO2 27 L pO2 131 H HCO3 13.7 L ABG pH 7.24 L ABG Total CO2 12.4 L ABG O2 Saturation 99.0 H ABG Base Excess -14.4 L ABG Hemoglobin 9.0 L ABG Carboxyhemoglobin 1.8 H POC ABG HHb (Measured) 1.0 ABG Methemoglobin 0.7 [place] Test Na ABG Potassium VBG pH VBG pCO2 VBG HCO3 VBG Total CO2 VBG O2 Sat (Calc) VBG Base Excess VBG Potassium A-a O2 Difference 548.0 Respiratory Index 4.2 Hgb O2 Saturation 96.6 Sodium Chloride Glucose Lactate Vent Mode Prvc Mechanical Rate 15 FiO2 100.0 Tidal Volume 500 PEEP 5 Crit Value Called To Crit Value Called By Crit Value Read Back Blood Gas Notified Time Potassium Carbon Dioxide Anion Gap BUN Creatinine Est GFR ( Amer) Est GFR (Non-Af Amer) POC Glucose (mg/dL) 84 Random Glucose Calcium Phosphorus Magnesium Total Bilirubin AST ALT Alkaline Phosphatase Total Creatine Kinase CK-MB (Mass) Troponin I Total Protein Albumin Globulin Albumin/Globulin Ratio Procalcitonin Arterial Blood Potassium Venous Blood Potassium 08/12/17 08/12/17 08/12/17 07:30 09:44 09:46 WBC RBC Hgb Hct MCV MCH MCHC RDW Plt Count MPV Neut % (Auto) Lymph % (Auto) [place] % (Auto) Eos % (Auto) Baso % (Auto) Neut # (Auto) Lymph # (Auto) [place] # (Auto) Eos # (Auto) Baso # (Auto) Neutrophils % (Manual) Lymphocytes % (Manual) Monocytes % (Manual) Platelet Estimate Poikilocytosis (manual Anisocytosis (manual) PT INR APTT Puncture Site pCO2 pO2 HCO3 ABG pH ABG Total CO2 ABG O2 Saturation ABG Base Excess ABG Hemoglobin ABG Carboxyhemoglobin POC ABG HHb (Measured) ABG Methemoglobin [place] Test ABG Potassium VBG pH VBG pCO2 VBG HCO3 VBG Total CO2 VBG O2 Sat (Calc) VBG Base Excess VBG Potassium A-a O2 Difference Respiratory Index Hgb O2 Saturation Sodium Chloride Glucose Lactate Vent Mode Mechanical Rate FiO2 Tidal Volume PEEP Crit Value Called To Crit Value Called By Crit Value Read Back Blood Gas Notified Time Potassium Carbon Dioxide Anion Gap BUN Creatinine Est GFR ( Amer) Est GFR (Non-Af Amer) POC Glucose (mg/dL) 71 52 L 58 L Random Glucose Calcium Phosphorus Magnesium Total Bilirubin AST ALT Alkaline Phosphatase Total Creatine Kinase CK-MB (Mass) Troponin I Total Protein Albumin Globulin Albumin/Globulin Ratio Procalcitonin Arterial Blood Potassium Venous Blood Potassium 08/12/17 08/12/17 08/12/17 10:11 11:35 11:48 WBC RBC Hgb Hct MCV MCH MCHC RDW Plt Count MPV Neut % (Auto) Lymph % (Auto) [place] % (Auto) Eos % (Auto) Baso % (Auto) Neut # (Auto) Lymph # (Auto) [place] # (Auto) Eos # (Auto) Baso # (Auto) Neutrophils % (Manual) Lymphocytes % (Manual) Monocytes % (Manual) Platelet Estimate Poikilocytosis (manual Anisocytosis (manual) PT INR APTT Puncture Site Lf pCO2 28 L pO2 118 H HCO3 18.2 L ABG pH 7.35 ABG Total CO2 16.4 L ABG O2 Saturation 99.0 H ABG Base Excess -8.6 L ABG Hemoglobin ABG Carboxyhemoglobin POC ABG HHb (Measured) ABG Methemoglobin [place] Test Na ABG Potassium 4.4 VBG pH VBG pCO2 VBG HCO3 VBG Total CO2 VBG O2 Sat (Calc) VBG Base Excess VBG Potassium A-a O2 Difference 560.0 Respiratory Index 4.7 Hgb O2 Saturation Sodium 139.0 Chloride 104.0 Glucose 133 H Lactate 6.9 H* Vent Mode Mechanical Rate 16 FiO2 100.0 Tidal Volume 500 PEEP 5 Crit Value Called To Dr shah Crit Value Called By Salomón lugo senior power scheduler Crit Value Read Back Y Blood Gas Notified Time 1145 Potassium Carbon Dioxide Anion Gap BUN Creatinine Est GFR ( Amer) Est GFR (Non-Af Amer) POC Glucose (mg/dL) 152 H 104 Random Glucose Calcium Phosphorus Magnesium Total Bilirubin AST ALT Alkaline Phosphatase Total Creatine Kinase CK-MB (Mass) Troponin I Total Protein Albumin Globulin Albumin/Globulin Ratio Procalcitonin Arterial Blood Potassium 4.4 Venous Blood Potassium 08/12/17 08/12/17 14:30 15:40 WBC RBC Hgb Hct MCV MCH MCHC RDW Plt Count MPV Neut % (Auto) Lymph % (Auto) [place] % (Auto) Eos % (Auto) Baso % (Auto) Neut # (Auto) Lymph # (Auto) [place] # (Auto) Eos # (Auto) Baso # (Auto) Neutrophils % (Manual) Lymphocytes % (Manual) Monocytes % (Manual) Platelet Estimate Poikilocytosis (manual Anisocytosis (manual) PT INR APTT Puncture Site Lf pCO2 30 L pO2 81 HCO3 16.0 L ABG pH 7.28 L ABG Total CO2 15.0 L ABG O2 Saturation 97.7 ABG Base Excess -11.3 L ABG Hemoglobin ABG Carboxyhemoglobin POC ABG HHb (Measured) ABG Methemoglobin [place] Test Na ABG Potassium 4.2 VBG pH VBG pCO2 VBG HCO3 VBG Total CO2 VBG O2 Sat (Calc) VBG Base Excess VBG Potassium A-a O2 Difference 595.0 Respiratory Index 7.3 Hgb O2 Saturation Sodium 140.0 Chloride 110.0 H Glucose 100 Lactate 7.1 H* Vent Mode Mechanical Rate 16 FiO2 100.0 Tidal Volume 500 PEEP 5 Crit Value Called To Dr shah Crit Value Called By Salomón lugo senior power scheduler Crit Value Read Back Y Blood Gas Notified Time 1440 Potassium Carbon Dioxide Anion Gap BUN Creatinine Est GFR ( Amer) Est GFR (Non-Af Amer) POC Glucose (mg/dL) 104 Random Glucose Calcium Phosphorus Magnesium Total Bilirubin AST ALT Alkaline Phosphatase Total Creatine Kinase CK-MB (Mass) Troponin I Total Protein Albumin Globulin Albumin/Globulin Ratio Procalcitonin Arterial Blood Potassium 4.2 Venous Blood Potassium - Imaging and Cardiology Chest x-ray Status: Report reviewed by me (see full report. Pulmonary edema.) Assessment & Plan (1) Septic shock Status: Acute (2) Respiratory failure, acute Status: Acute (3) Pneumonia Status: Acute (4) CHF (congestive heart failure) Status: Acute (5) Abnormal liver enzymes Assessment and Plan: MOST PROBABLY SECONDARY TO SHOCK LIVER. hEPATITIS SCREEN A,B,C. F/U LFTS. Status: Acute (6) Colon cancer metastasized to liver Status: Acute (7) Diabetes mellitus Status: Chronic Priority: Medium (8) ESRD (end stage renal disease) on dialysis Assessment and Plan: ON HD MWF NEW PERMACATHETER RIGHT CHEST WALL PLACED 08-11-17 Status: Chronic Priority: Medium (9) HTN (hypertension) Status: Chronic (10) Ischemic cardiomyopathy Status: Acute - Assessment and Plan (Free Text) Plan: PANCULTURES. CRP. CONTINUE iv MERREM 500 MG EVERY 12 HOURLY.08/12/17 PATIENT GOT 1 DOSE OF VANCOMYCIN 1 G ON 08/12/17. VANCO RANDOM LEVEL IN A.M. AND IF LESS THAN 10 WE WILL RELOAD WITH VANCOMYCIN 500 MG POST HEMODIALYSIS. ADD ZITHROMAX 250 MG EVERY 24 HOURLY FOR ATYPICAL ORGANISMS 08/12/17 PATIENT RECENTLY DISCHARGED FROM SUBACUTE REHABILITATION. F/U BLOOD CULTURES F/U SPUTUM CULTURES. ESR. ATYPICAL TITERS CBC WITH DIFFERENTIAL, LFTS AM. CMP AM. WILL F/U WITH YOU. THANKYOU. addendum: PT STARTED ON DOXYCYCLINE BY STOCK PREPARER . WILL LET IT BE ON DOXY FOR ATYPICAL PATHOGENS.
[2017-08-12] MEDS ORDERED: SODIUM CHLORIDE 0.9% IV PRN (18:30)
[2017-08-12] MEDS ORDERED: PHENYLEPHRINE IV PRN (18:30)
[2017-08-12] MEDS ORDERED: Thiamine 100 mg/ml Inj IV SCH ×2 (19:15→20:30)
[2017-08-12] MEDS ORDERED: Gentamicin 80 mg/2mL Inj. IVPB ONE (19:30)
[2017-08-12] MEDS ORDERED: GENTAMICIN IVPB ONE (19:30)
[2017-08-12] MEDS ORDERED: SODIUM CHLORIDE 0.9% IVPB ONE (19:30)
[2017-08-12] MEDS: (Novolog) Insulin Aspart, Recombinant 100 u/ml 10 ml vial SC SCH (19:55)
[2017-08-12] MEDS: SODIUM CHLORIDE 0.9% IV PRN (20:00)
[2017-08-12] MEDS: NOREPINEPHRINE IV PRN (20:00)
[2017-08-12] MEDS ORDERED: Sodium Chloride 0.9% 1,000 ML IV ONE (20:38)
--- NOTE | 2017-08-12 21:28 | PCM.PROC ---
Procedures Attestation:: I certify that I have explained the specified Operation(s) or Procedure(s), risks, benefits and reasonable alternatives to the Patient and/or other person responsible. The opportunity was given to ask questions and all questions answered - Arterial Line Left Radial Aseptic technique was employed throughout the procedure: Full sterile barriers ( mask, hair cover, sterile gown, sterile gloves), Full body sterile drape, Chloraprep Antiseptic: 30 second prep for IJ or SC sites Time Out Performed: Yes Pt. placed on Pulse Ox Monitor: Yes Central Line Prep: Chlorhexidine-Alcohol Combination Local Anesthesia Used: Lidocaine 1% Amount of Anesthesia Used (mls): 5 Ultrasound Used for Placement: No Gauge (Size): 20 gauge Technique Used: Guide Wire Technique Secured by: Suture Post procedure dressing: Gauze, Clear vapor permeable, Chlorhexidine disc ( Biopatch) Patient Tolerated Procedure: no complications Immediate Complications: none Additional Comments: Blood pressure very, very low
[2017-08-12] MEDS: Vasopressin 40 UNITS in Dextrose 5% In Water 40 ML IV SCH (21:30)
[2017-08-12] MEDS: Meropenem 500 MG in Sodium Chloride 0.9% 100 ML IVPB SCH (21:35)
--- NOTE | 2017-08-12 22:23 | US ---
EXAM: US Right Lower Extremity, Limited CLINICAL HISTORY: 76 years old, male; Signs and symptoms; Other: Eval right femoral site; Prior surgery; Surgery type: Picc line TECHNIQUE: Real-time ultrasound scan of the right lower extremity with image documentation. COMPARISON: No relevant prior studies available. FINDINGS: Soft tissues: No mass or fluid collection. Tubes, lines and devices: Right Femoral catheter. IMPRESSION: 1.No acute findings.
[2017-08-12 23:43] LABS: HEMOGLOBIN 9.1 g/dL (12.0-18.0); LYMPH # 0.3 K/uL (1.0-4.3); MEAN CELL VOLUME 93.2 fL (80.0-94.0); MEAN CORPUSCULAR HEMOGLOBIN 29.7 pg (27.0-31.0); MEAN CORPUSCULAR HGB CONC 31.9 g/dL (33.0-37.0); MEAN PLATELET VOLUME 11.1 fL (7.2-11.7); MONO # 0.3 K/uL (0.0-0.8); MONO % 1.9 % (0.0-10.0); NEUT # 13.3 K/uL (1.8-7.0); NEUT % 96.1 % (50.0-75.0); NRBC % 0.4 % (0.0-2.0); RBC 3.08 Mil/uL (4.40-5.90); WHITE BLOOD COUNT 13.8 K/uL (4.8-10.8)
[2017-08-12 23:47] LABS: PLATELET COUNT 81 K/uL (130-400)
[2017-08-13] MEDS: (Novolog) Insulin Aspart, Recombinant 100 u/ml 10 ml vial SC SCH ×4 (00:09→18:31)
[2017-08-13 00:25] LABS: ARTERIAL BLOOD GAS HCO3 17.9 mmol/L (21-28); ARTERIAL BLOOD GAS PCO2 22 mm/Hg (35-45); ARTERIAL BLOOD GAS PO2 214 mm/Hg (80-100); ARTERIAL BLOOD GAS TCO2 14.3 mmol/L (22-28)
[2017-08-13 00:45] LABS: ALB/GLOB RATIO 0.8 (1.0-2.1); ALBUMIN 2.2 g/dL (3.5-5.0); CALCIUM 6.6 mg/dl (8.6-10.4)
[2017-08-13] MEDS ORDERED: Sodium Chloride 0.9% 1,000 ML IV ONE (00:55)
[2017-08-13 02:04] LABS: ANISOCYTOSIS SLIGHT; BANDS 8 % (0-2); LYMPHOCYTE 3 % (20-40); MONOCYTE 1 % (0-10); NEUTROPHIL 88 % (50-75); NUCLEATED RED BLOOD CELL 1 % (0-0); PLATELET ESTIMATE SLIGHTLY DECREASED (NORMAL); POIKILOCYTOSIS SLIGHT; TOTAL CELLS COUNTED 100; TOXIC GRANULATION PRESENT
[2017-08-13] MEDS: Ipratropium 0.02% Inhal Soln (0.5 mg/2.5 ml) UD IH SCH ×4 (02:57→20:12)
[2017-08-13 05:38] LABS: ARTERIAL BLOOD GAS HCO3 17.9 mmol/L (21-28); ARTERIAL BLOOD GAS O2 SAT 99.7 % (95-98); ARTERIAL BLOOD GAS PCO2 20 mm/Hg (35-45); ARTERIAL BLOOD GAS PH 7.42 (7.35-7.45); ARTERIAL BLOOD GAS PO2 240 mm/Hg (80-100); ARTERIAL BLOOD GAS TCO2 13.6 mmol/L (22-28)
[2017-08-13 06:11] LABS: BASO % 0.2 % (0.0-2.0); HEMOGLOBIN 8.5 g/dL (12.0-18.0); LYMPH # 0.3 K/uL (1.0-4.3); LYMPH % 3.1 % (20.0-40.0); MEAN CELL VOLUME 93.3 fL (80.0-94.0); MEAN CORPUSCULAR HEMOGLOBIN 30.2 pg (27.0-31.0); MEAN CORPUSCULAR HGB CONC 32.4 g/dL (33.0-37.0); MEAN PLATELET VOLUME 11.3 fL (7.2-11.7); MONO # 0.3 K/uL (0.0-0.8); MONO % 2.6 % (0.0-10.0); NEUT % 94.1 % (50.0-75.0); NRBC % 0.3 % (0.0-2.0); PLATELET COUNT 80 K/uL (130-400); RBC 2.83 Mil/uL (4.40-5.90); RED CELL DISTRIBUTION WIDTH 19.1 % (11.5-14.5); WHITE BLOOD COUNT 10.6 K/uL (4.8-10.8)
[2017-08-13 06:28] LABS: ALB/GLOB RATIO 0.8 (1.0-2.1); BILIRUBIN,DIRECT 2.4 mg/dL (0.0-0.4); CALCIUM 6.3 mg/dl (8.6-10.4)
[2017-08-13 06:57] LABS: HEPATITIS B SURFACE AG Negative (NEGATIVE)
[2017-08-13 07:03] LABS: HEPATITIS A IGM NEGATIVE (NEGATIVE); HEPATITIS B CORE AB NEGATIVE (NEGATIVE)
[2017-08-13 07:14] LABS: HEPATITIS C ANTIBODY NEGATIVE (NEGATIVE)
[2017-08-13 08:10] LABS: BANDS 13 % (0-2); LYMPHOCYTE 2 % (20-40); MONOCYTE 3 % (0-10); TOTAL CELLS COUNTED 100
[2017-08-13 08:11] LABS: ANISOCYTOSIS MODERATE; NEUTROPHIL 82 % (50-75); PLATELET ESTIMATE DECREASED (NORMAL)
[2017-08-13 08:13] LABS: HYPOCHROMIC SLIGHT; LARGE PLATELETS PRESENT
--- NOTE | 2017-08-13 08:14 | CP.PCM.PN ---
Subjective - Date & Time of Evaluation Date of Evaluation: 08/13/17 Time of Evaluation: 08:30 - Subjective Subjective: PATIENT SEEN- STILL INTUBATED Objective - Vital Signs/Intake and Output Vital Signs (last 24 hours): Temp Pulse Resp BP Pulse Ox 98.1 F 91 H 23 90/38 L 100 08/13/17 04:00 08/13/17 07:45 08/13/17 07:45 08/13/17 07:51 08/13/17 07:45 Intake and Output: 08/13/17 08/13/17 06:59 18:59 Intake Total 4108.6 244 Balance 4108.6 244 - Medications Medications: Current Medications Ascorbic Acid (Vitamin C 500 Mg Tab) 1,000 mg PO Q8H [facility] Last Admin: 08/13/17 02:41 Dose: 1,000 mg Dextrose (Dextrose 50% Inj) 0 ml IV STAT PRN; Protocol PRN Reason: Hypoglycemia Protocol Last Admin: 08/12/17 09:45 Dose: 50 ml Dextrose (Glutose 15) 0 gm PO ONCE PRN; Protocol PRN Reason: Hypoglycemia Protocol Glucagon (Glucagen Diagnostic Kit) 0 mg IM STAT PRN; Protocol PRN Reason: Hypoglycemia Protocol Hydrocortisone Sodium Succinate (Solu-Cortef) 100 mg IV Q8H [facility] Last Admin: 08/13/17 02:40 Dose: 100 mg Dextrose (Dextrose 5% In Water 1000 Ml) 1,000 mls @ 0 mls/hr IV .Q0M PRN; Protocol; Per Protocol PRN Reason: Hypoglycemia Protocol Meropenem 500 mg/ Sodium (Chloride) 100 mls @ 100 mls/hr IVPB Q12H [place] PRN Reason: Protocol Last Admin: 08/12/17 21:35 Dose: 100 mls/hr Phenylephrine HCl 120 mg/ (Sodium Chloride) 1,012 mls @ 10.12 mls/hr IV .Q24H PRN; Protocol; 20 MCG/MIN PRN Reason: TITRATE PER MD ORDER Last Titration: 08/13/17 07:00 Dose: 0 mcg/min, 0 mls/hr Norepinephrine Bitartrate 16 (mg/ Sodium Chloride) 1,016 mls @ 15.24 mls/hr IV .Q24H PRN; Protocol; 4 MCG/MIN PRN Reason: TITRATE PER MD ORDER Last Titration: 08/13/17 07:53 Dose: 10 mcg/min, 38.1 mls/hr Doxycycline Hyclate 100 mg/ (Sodium Chloride) 100 mls @ 100 mls/hr IVPB Q12H [place] PRN Reason: Protocol Last Admin: 08/13/17 07:58 Dose: 100 mls/hr Fentanyl Citrate 2,500 mcg/ (Sodium Chloride) 250 mls @ 11 mls/hr IV .[id number] [place]; 2 MCG/KG/HR PRN Reason: Protocol Last Titration: 08/13/17 06:24 Dose: 1 mcg/kg/hr, 5.5 mls/hr Vasopressin 40 units/ Dextrose 42 mls @ 2.52 mls/hr IV .[id number] [place]; 0.04 UNITS /MIN PRN Reason: Protocol Last Admin: 08/12/17 21:30 Dose: Not Given Insulin Aspart (Novolog) 0 unit SC Q6 [place] PRN Reason: Protocol Last Admin: 08/13/17 06:27 Dose: Not Given Ipratropium [place] (Atrovent) 0.5 mg IH RQ6 [facility] Last Admin: 08/13/17 07:40 Dose: 0.5 mg Midodrine (Proamatine) 2.5 mg PO TID [facility] Pantoprazole Sodium (Protonix Inj) 40 mg IVP DAILY [facility] Last Admin: 08/12/17 10:39 Dose: 40 mg Sodium Bicarbonate (Sodium Bicarbonate Tab) 650 mg PO Q6 [facility] Last Admin: 08/13/17 06:29 Dose: 650 mg Thiamine HCl (Vitamin B1 Inj) 200 mg IV Q8H [facility] Stop: 08/15/17 12:31 - Labs Labs: 08/13/17 06:01 08/13/17 06:02 PT 17.1 SECONDS (9.7-12.2) H 08/12/17 05:07 INR 1.5 08/12/17 05:07 APTT 42 SECONDS (21-34) H 08/12/17 05:07 Assessment and Plan (1) CHF (congestive heart failure) Status: Acute (2) 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 Status: Acute (3) Atrial fibrillation Status: Acute (4) End stage renal disease Status: Acute (5) Prostate CA Status: Chronic (6) Elevated troponin level Status: Acute
--- NOTE | 2017-08-13 08:30 | RAD ---
Chest x-ray single frontal view History: Intubated. Comparison: 08/12/2017 Findings: Multiple overlying battery packs and wires limit evaluation. Endotracheal tube extending into the mid thoracic trachea. NG tube extending into the stomach. Right central venous catheter with tip extending to the cavoatrial junction. Biapical pleural thickening with upper lobe granulomatous changes. Mild to moderate venous congestion. Patchy confluent increased markings at the left lung base with trace left pleural effusion. Tortuous aorta. Mild cardiomegaly. Degenerative changes in the spine and shoulders. Bilateral axillary stents in place. Impression: Multiple overlying battery packs and wires limit evaluation. Endotracheal tube extending into the mid thoracic trachea. NG tube extending into the stomach. Right central venous catheter with tip extending to the cavoatrial junction. Biapical pleural thickening with upper lobe granulomatous changes. Mild to moderate venous congestion. Patchy confluent increased markings at the left lung base with trace left pleural effusion. Tortuous aorta. Mild cardiomegaly. Degenerative changes in the spine and shoulders. Bilateral axillary stents in place.
--- NOTE | 2017-08-13 09:03 | CP.PCM.PN ---
Subjective - Date & Time of Evaluation Date of Evaluation: 08/12/17 Time of Evaluation: 16:10 - Subjective Subjective: Patient seen and evaluated Hypotensive on Shakir Intubated but awake Sepsis vs. cardiogenic Not a candidate for cath at this time Hx of CAD A Fib metastatic Prostate Ca Anemia and GI bleed Objective - Vital Signs/Intake and Output Vital Signs (last 24 hours): Temp Pulse Resp BP Pulse Ox 98.1 F 105 H 23 118/42 L 100 08/13/17 08:00 08/13/17 08:30 08/13/17 08:30 08/13/17 08:30 08/13/17 08:30 Intake and Output: 08/13/17 08/13/17 06:59 18:59 Intake Total 4108.6 493.6 Balance 4108.6 493.6 - Medications Medications: Current Medications Ascorbic Acid (Vitamin C 500 Mg Tab) 1,000 mg PO Q8H [facility] Last Admin: 08/13/17 02:41 Dose: 1,000 mg Dextrose (Dextrose 50% Inj) 0 ml IV STAT PRN; Protocol PRN Reason: Hypoglycemia Protocol Last Admin: 08/12/17 09:45 Dose: 50 ml Dextrose (Glutose 15) 0 gm PO ONCE PRN; Protocol PRN Reason: Hypoglycemia Protocol Glucagon (Glucagen Diagnostic Kit) 0 mg IM STAT PRN; Protocol PRN Reason: Hypoglycemia Protocol Hydrocortisone Sodium Succinate (Solu-Cortef) 100 mg IV Q8H [facility] Last Admin: 08/13/17 02:40 Dose: 100 mg Dextrose (Dextrose 5% In Water 1000 Ml) 1,000 mls @ 0 mls/hr IV .Q0M PRN; Protocol; Per Protocol PRN Reason: Hypoglycemia Protocol Meropenem 500 mg/ Sodium (Chloride) 100 mls @ 100 mls/hr IVPB Q12H [facility] PRN Reason: Protocol Last Admin: 08/12/17 21:35 Dose: 100 mls/hr Phenylephrine HCl 120 mg/ (Sodium Chloride) 1,012 mls @ 10.12 mls/hr IV .Q24H PRN; Protocol; 20 MCG/MIN PRN Reason: TITRATE PER MD ORDER Last Titration: 08/13/17 07:00 Dose: 0 mcg/min, 0 mls/hr Norepinephrine Bitartrate 16 (mg/ Sodium Chloride) 1,016 mls @ 15.24 mls/hr IV .Q24H PRN; Protocol; 4 MCG/MIN PRN Reason: TITRATE PER MD ORDER Last Titration: 08/13/17 07:53 Dose: 10 mcg/min, 38.1 mls/hr Doxycycline Hyclate 100 mg/ (Sodium Chloride) 100 mls @ 100 mls/hr IVPB Q12H [facility] PRN Reason: Protocol Last Admin: 08/13/17 07:58 Dose: 100 mls/hr Fentanyl Citrate 2,500 mcg/ (Sodium Chloride) 250 mls @ 11 mls/hr IV .[id number] [facility]; 2 MCG/KG/HR PRN Reason: Protocol Last Titration: 08/13/17 06:24 Dose: 1 mcg/kg/hr, 5.5 mls/hr Vasopressin 40 units/ Dextrose 42 mls @ 2.52 mls/hr IV .[id number] [facility]; 0.04 UNITS /MIN PRN Reason: Protocol Last Admin: 08/12/17 21:30 Dose: Not Given Insulin Aspart (Novolog) 0 unit SC Q6 [facility] PRN Reason: Protocol Last Admin: 08/13/17 06:27 Dose: Not Given Ipratropium [place] (Atrovent) 0.5 mg IH RQ6 [facility] Last Admin: 08/13/17 07:40 Dose: 0.5 mg Midodrine (Proamatine) 2.5 mg PO TID [facility] Pantoprazole Sodium (Protonix Inj) 40 mg IVP DAILY [facility] Last Admin: 08/12/17 10:39 Dose: 40 mg Sodium Bicarbonate (Sodium Bicarbonate Tab) 650 mg PO Q6 [facility] Last Admin: 08/13/17 06:29 Dose: 650 mg Thiamine HCl (Vitamin B1 Inj) 200 mg IV Q8H [facility] Stop: 08/15/17 12:31 - Labs Labs: 08/13/17 06:01 08/13/17 06:02 PT 17.1 SECONDS (9.7-12.2) H 08/12/17 05:07 INR 1.5 08/12/17 05:07 APTT 42 SECONDS (21-34) H 08/12/17 05:07
--- NOTE | 2017-08-13 11:25 | CP.CCUPN ---
<Sonia Michaud - Last Filed: 08/13/17 13:04> CCU Subjective - Physician Review Subjective (Free Text): 08/13/17 11:25 Patient seen and examined at bedside. Overnight A-Line was placed, patient received bolus of fluids. Currently on Levophed for hypotension and fentanyl for sedation. He is on Doxycycline and Merrem for sepsis. For hemodialysis today. CCU Objective - Vital Signs / Intake & Output Vital Signs (Last 4 hours): Vital Signs Temp Pulse Resp BP BP Pulse Ox 08/13/17 11:00 132 H 20 106/43 L 100 08/13/17 10:30 129 H 17 110/42 L 100 08/13/17 10:00 126 H 19 95/40 L 100 08/13/17 09:30 101/40 L 08/13/17 09:00 98 H 21 100/39 L 100 08/13/17 08:30 105 H 23 118/42 L 100 08/13/17 08:15 90 23 100 08/13/17 08:00 98.1 F 96 H 23 112/41 L 100 08/13/17 07:51 90/38 L 08/13/17 07:45 91 H 23 100 08/13/17 07:30 111 H 23 100/40 L 100 Intake and Output (Last 8hrs): Intake & Output 08/12/17 08/13/17 08/13/17 22:59 06:59 14:59 Intake Total 2790.9 2111.9 804.4 Balance 2790.9 2111.9 804.4 Weight 59.466 kg Intake: IV 206 481 244 Intake, IV Amount 2394.9 1550.9 310.4 Left Antecubital 0 Perma Cath Blue port 91.1 Right Distal Port 237 50 100 Right Distal Port Femoral 319.4 312.9 182.9 Right Medial Port Femoral 1714.4 1100 Right Proximal Port 33 88 27.5 Femoral Oral 30 150 Tube Feeding 160 80 100 Other: # Voids Urine, Voided 0 0 0 # Bowel Movements 0 0 - Physical Exam Head: Positive for: Atraumatic, Normocephalic Pupils: Positive for: PERRL Extroacular Muscles: Positive for: EOMI Conjunctiva: Positive for: Normal Mouth: Positive for: Dry, Other (ETT ) Nose (External): Positive for: Atraumatic Neck: Negative for: JVD Respiratory/Chest: Positive for: Decreased Breath Sounds, Rales Cardiovascular: Positive for: Irregular Rhythm, Tachycardic Abdomen: Positive for: Normal Bowel Sounds. Negative for: Distention Upper Extremity: Positive for: Normal Inspection Lower Extremity: Positive for: Normal Inspection Skin: Positive for: Dry Psychiatric: Positive for: Alert - Medications Active Medications: Active Medications Generic Name Dose Route Start Last Admin Trade Name Freq PRN Reason Stop Dose Admin Ascorbic Acid 1,000 mg 08/13/17 10:00 08/13/17 10:18 Vitamin C 500 Mg Tab PO 1,000 mg Q8H CORINA Administration Dextrose 0 ml 08/11/17 17:18 08/12/17 09:45 Dextrose 50% Inj IV 50 ml STAT PRN Administration Hypoglycemia Protocol Protocol Hydrocortisone Sodium Succinate 100 mg 08/13/17 03:30 08/13/17 02:40 Solu-Cortef IV 100 mg Q8H CORINA Administration Meropenem 500 mg/ Sodium 100 mls @ 100 mls/hr 08/12/17 22:00 08/12/17 21:35 Chloride IVPB 100 mls/hr Q12H CORINA Administration Protocol Phenylephrine HCl 120 mg/ 1,012 mls @ 10.12 mls/hr 08/12/17 18:30 08/13/17 07 :00 Sodium Chloride IV 0 mcg/min .Q24H PRN 0 mls/hr TITRATE PER MD ORDER Titration Protocol 20 MCG/MIN Norepinephrine Bitartrate 16 1,016 mls @ 15.24 mls/hr 08/12/17 18:30 07:53 mg/ Sodium Chloride IV 10 mcg/min .Q24H PRN 38.1 mls/hr TITRATE PER MD ORDER Titration Protocol 4 MCG/MIN Doxycycline Hyclate 100 mg/ 100 mls @ 100 mls/hr 08/12/17 20:00 08/13/17 07: 58 Sodium Chloride IVPB 100 mls/hr Q12H CORINA Administration Protocol Fentanyl Citrate 2,500 mcg/ 250 mls @ 11 mls/hr 08/12/17 19:45 08/13/17 06:24 Sodium Chloride IV 1 mcg/kg/hr .[id number] CORINA 5.5 mls/hr Protocol Titration 2 MCG/KG/HR Vasopressin 40 units/ Dextrose 42 mls @ 2.52 mls/hr 08/12/17 21:15 08/12/17 21:30 IV Not Given .[id number] [facility] Protocol 0.04 UNITS/MIN Insulin Aspart 0 unit 08/12/17 19:30 08/13/17 06:27 Novolog SC Not Given Q6 [facility] Protocol Ipratropium [place] 0.5 mg 08/12/17 19:45 08/13/17 07:40 Atrovent IH 0.5 mg RQ6 [facility]INA Administration Midodrine 2.5 mg 08/13/17 10:00 08/13/17 10:19 Proamatine PO 2.5 mg TID CORINA Administration Pantoprazole Sodium 40 mg 08/12/17 10:00 08/13/17 09:51 Protonix Inj IVP 40 mg DAILY CORINA Administration Sodium Bicarbonate 650 mg 08/13/17 00:00 08/13/17 06:29 Sodium Bicarbonate Tab PO 650 mg Q6 [facility]INA Administration Thiamine HCl 200 mg 08/12/17 20:30 Vitamin B1 Inj IV 08/15/17 12:31 Q8H CORINA - Patient Studies Lab Studies: Microbiology Studies 08/11/17 17:16 MRSA Culture (Admit) - Final Naris MRSA NOT DETECTED 08/11/17 19:00 Blood Culture - Preliminary Blood-Venous NO GROWTH AFTER 24 HOURS Lab Studies 08/13/17 08/13/17 08/13/17 Range/Units 08:20 06:08 06:02 WBC (4.8-10.8) K/uL RBC (4.40-5.90) Mil/uL Hgb (12.0-18.0) g/dL Hct (35.0-51.0) % MCV (80.0-94.0) fL MCH (27.0-31.0) pg MCHC (33.0-37.0) g/dL RDW (11.5-14.5) % Plt Count (130-400) K/uL MPV (7.2-11.7) fL Neut % (Auto) (50.0-75.0) % Lymph % (Auto) (20.0-40.0) % [place] % (Auto) (0.0-10.0) % Eos % (Auto) (0.0-4.0) % Baso % (Auto) (0.0-2.0) % Neut # (Auto) (1.8-7.0) K/uL Lymph # (Auto) (1.0-4.3) K/uL [place] # (Auto) (0.0-0.8) K/uL Eos # (Auto) (0.0-0.7) K/uL Baso # (Auto) (0.0-0.2) K/uL Neutrophils % (Manual) (50-75) % Band Neutrophils % (0-2) % Lymphocytes % (Manual) (20-40) % Monocytes % (Manual) (0-10) % Nucleated RBC % (0-0) % Toxic Granulation Platelet Estimate (NORMAL) Large Platelets Hypochromasia (manual) Poikilocytosis (manual Anisocytosis (manual) ESR (0-15) mm/hr Puncture Site pCO2 (35-45) mm/Hg pO2 (80-100) mm/Hg HCO3 (21-28) mmol/L ABG pH (7.35-7.45) ABG Total CO2 (22-28) mmol/L ABG O2 Saturation (95-98) % ABG Base Excess (-2.0-3.0) mmol/L [place]co Test ABG Potassium (3.6-5.2) mmol/L A-a O2 Difference mm/Hg Respiratory Index Sodium (132-148) mmol/l Chloride (98-107) mmol/L Glucose (75-110) mg/dl Lactate (0.7-2.1) mmol/L Vent Mode Mechanical Rate FiO2 % Tidal Volume PEEP Crit Value Called To Crit Value Called By Crit Value Read Back Blood Gas Notified Time Potassium (3.6-5.2) mmol/L Carbon Dioxide (22-30) mmol/L Anion Gap (10-20) BUN (9-20) mg/dL Creatinine (0.8-1.5) mg/dL Est GFR ( Amer) Est GFR (Non-Af Amer) POC Glucose (mg/dL) (65-110) mg/dL Random Glucose (75-110) mg/dL Lactic Acid 2.6 H (0.7-2.1) mmol/L Calcium (8.6-10.4) mg/dl Phosphorus (2.5-4.5) mg/dL Magnesium (1.6-2.3) mg/dL Total Bilirubin (0.2-1.3) mg/dL Direct Bilirubin (0.0-0.4) mg/dL AST (17-59) U/L ALT (21-72) U/L Alkaline Phosphatase (38-126) U/L C-Reactive Protein (0.0-9.9) mg/L Total Protein (6.3-8.3) g/dL Albumin (3.5-5.0) g/dL Globulin (2.2-3.9) gm/dL Albumin/Globulin Ratio (1.0-2.1) Arterial Blood Potassium (3.6-5.2) mmol/L Stool Occult Blood Positive H (NEGATIVE) Random Vancomycin ug/mL Hepatitis A IgM Ab (NEGATIVE) Hep Bs Antigen (NEGATIVE) Hep B Core IgM Ab (NEGATIVE) Hepatitis C Antibody Negative (NEGATIVE) Mycoplasma pneumon IgM (NEGATIVE) 08/13/17 08/13/17 08/13/17 Range/Units 06:02 06:02 06:01 WBC 10.6 (4.8-10.8) K/uL RBC 2.83 L (4.40-5.90) Mil/uL Hgb 8.5 L (12.0-18.0) g/dL Hct 26.4 L (35.0-51.0) % MCV 93.3 (80.0-94.0) fL MCH 30.2 (27.0-31.0) pg MCHC 32.4 L (33.0-37.0) g/dL RDW 19.1 H (11.5-14.5) % Plt Count 80 L (130-400) K/uL MPV 11.3 (7.2-11.7) fL Neut % (Auto) 94.1 H (50.0-75.0) % Lymph % (Auto) 3.1 L (20.0-40.0) % [place] % (Auto) 2.6 (0.0-10.0) % Eos % (Auto) 0.0 (0.0-4.0) % Baso % (Auto) 0.2 (0.0-2.0) % Neut # (Auto) 10.0 H (1.8-7.0) K/uL Lymph # (Auto) 0.3 L (1.0-4.3) K/uL [place] # (Auto) 0.3 (0.0-0.8) K/uL Eos # (Auto) 0.0 (0.0-0.7) K/uL Baso # (Auto) 0.0 (0.0-0.2) K/uL Neutrophils % (Manual) 82 H (50-75) % Band Neutrophils % 13 H* (0-2) % Lymphocytes % (Manual) 2 L (20-40) % Monocytes % (Manual) 3 (0-10) % Nucleated RBC % (0-0) % Toxic Granulation Platelet Estimate Decreased L (NORMAL) Large Platelets Present Hypochromasia (manual) Slight Poikilocytosis (manual Anisocytosis (manual) Moderate ESR 20 H (0-15) mm/hr Puncture Site pCO2 (35-45) mm/Hg pO2 (80-100) mm/Hg HCO3 (21-28) mmol/L ABG pH (7.35-7.45) ABG Total CO2 (22-28) mmol/L ABG O2 Saturation (95-98) % ABG Base Excess (-2.0-3.0) mmol/L [place]co Test ABG Potassium (3.6-5.2) mmol/L A-a O2 Difference mm/Hg Respiratory Index Sodium 145 (132-148) mmol/l Chloride 107 (98-107) mmol/L Glucose (75-110) mg/dl Lactate (0.7-2.1) mmol/L Vent Mode Mechanical Rate FiO2 % Tidal Volume PEEP Crit Value Called To Crit Value Called By Crit Value Read Back Blood Gas Notified Time Potassium 4.4 (3.6-5.2) mmol/L Carbon Dioxide 14 L (22-30) mmol/L Anion Gap 28 H (10-20) BUN 49 H (9-20) mg/dL Creatinine 4.3 H (0.8-1.5) mg/dL Est GFR ( Amer) 16 Est GFR (Non-Af Amer) 13 POC Glucose (mg/dL) (65-110) mg/dL Random Glucose 140 H (75-110) mg/dL Lactic Acid (0.7-2.1) mmol/L Calcium 6.3 L (8.6-10.4) mg/dl Phosphorus 6.5 H (2.5-4.5) mg/dL Magnesium 1.8 (1.6-2.3) mg/dL Total Bilirubin 2.6 H (0.2-1.3) mg/dL Direct Bilirubin 2.4 H (0.0-0.4) mg/dL AST 2412 H (17-59) U/L ALT 612 H (21-72) U/L Alkaline Phosphatase 126 (38-126) U/L C-Reactive Protein 244.10 H (0.0-9.9) mg/L Total Protein 4.7 L (6.3-8.3) g/dL Albumin 2.0 L (3.5-5.0) g/dL Globulin 2.7 (2.2-3.9) gm/dL Albumin/Globulin Ratio 0.8 L (1.0-2.1) Arterial Blood Potassium (3.6-5.2) mmol/L Stool Occult Blood (NEGATIVE) Random Vancomycin ug/mL Hepatitis A IgM Ab Negative (NEGATIVE) Hep Bs Antigen Negative (NEGATIVE) Hep B Core IgM Ab Negative (NEGATIVE) Hepatitis C Antibody Negative (NEGATIVE) Mycoplasma pneumon IgM (NEGATIVE) 08/13/17 08/13/17 08/13/17 Range/Units 05:41 05:19 00:21 WBC (4.8-10.8) K/uL RBC (4.40-5.90) Mil/uL Hgb (12.0-18.0) g/dL Hct (35.0-51.0) % MCV (80.0-94.0) fL MCH (27.0-31.0) pg MCHC (33.0-37.0) g/dL RDW (11.5-14.5) % Plt Count (130-400) K/uL MPV (7.2-11.7) fL Neut % (Auto) (50.0-75.0) % Lymph % (Auto) (20.0-40.0) % [place] % (Auto) (0.0-10.0) % Eos % (Auto) (0.0-4.0) % Baso % (Auto) (0.0-2.0) % Neut # (Auto) (1.8-7.0) K/uL Lymph # (Auto) (1.0-4.3) K/uL [place] # (Auto) (0.0-0.8) K/uL Eos # (Auto) (0.0-0.7) K/uL Baso # (Auto) (0.0-0.2) K/uL Neutrophils % (Manual) (50-75) % Band Neutrophils % (0-2) % Lymphocytes % (Manual) (20-40) % Monocytes % (Manual) (0-10) % Nucleated RBC % (0-0) % Toxic Granulation Platelet Estimate (NORMAL) Large Platelets Hypochromasia (manual) Poikilocytosis (manual Anisocytosis (manual) ESR (0-15) mm/hr Puncture Site A-line pCO2 20 L (35-45) mm/Hg pO2 240 H (80-100) mm/Hg HCO3 17.9 L (21-28) mmol/L ABG pH 7.42 (7.35-7.45) ABG Total CO2 13.6 L (22-28) mmol/L ABG O2 Saturation 99.7 H (95-98) % ABG Base Excess -9.1 L (-2.0-3.0) mmol/L [place]co Test Na ABG Potassium 4.0 (3.6-5.2) mmol/L A-a O2 Difference 448.0 mm/Hg Respiratory Index 1.9 Sodium 142.0 (132-148) mmol/l Chloride 111.0 H (98-107) mmol/L Glucose 135 H (75-110) mg/dl Lactate 3.1 H (0.7-2.1) mmol/L Vent Mode A/c pc Mechanical Rate 23 FiO2 100.0 % Tidal Volume PEEP 8 Crit Value Called To Crit Value Called By Crit Value Read Back Blood Gas Notified Time Potassium (3.6-5.2) mmol/L Carbon Dioxide (22-30) mmol/L Anion Gap (10-20) BUN (9-20) mg/dL Creatinine (0.8-1.5) mg/dL Est GFR ( Amer) Est GFR (Non-Af Amer) POC Glucose (mg/dL) 147 H (65-110) mg/dL Random Glucose (75-110) mg/dL Lactic Acid 6.0 H* (0.7-2.1) mmol/L Calcium (8.6-10.4) mg/dl Phosphorus (2.5-4.5) mg/dL Magnesium (1.6-2.3) mg/dL Total Bilirubin (0.2-1.3) mg/dL Direct Bilirubin (0.0-0.4) mg/dL AST (17-59) U/L ALT (21-72) U/L Alkaline Phosphatase (38-126) U/L C-Reactive Protein (0.0-9.9) mg/L Total Protein (6.3-8.3) g/dL Albumin (3.5-5.0) g/dL Globulin (2.2-3.9) gm/dL Albumin/Globulin Ratio (1.0-2.1) Arterial Blood Potassium 4.0 (3.6-5.2) mmol/L Stool Occult Blood (NEGATIVE) Random Vancomycin ug/mL Hepatitis A IgM Ab (NEGATIVE) Hep Bs Antigen (NEGATIVE) Hep B Core IgM Ab (NEGATIVE) Hepatitis C Antibody (NEGATIVE) Mycoplasma pneumon IgM (NEGATIVE) 08/13/17 08/13/17 08/13/17 Range/Units 00:21 00:19 00:02 WBC (4.8-10.8) K/uL RBC (4.40-5.90) Mil/uL Hgb (12.0-18.0) g/dL Hct (35.0-51.0) % MCV (80.0-94.0) fL MCH (27.0-31.0) pg MCHC (33.0-37.0) g/dL RDW (11.5-14.5) % Plt Count (130-400) K/uL MPV (7.2-11.7) fL Neut % (Auto) (50.0-75.0) % Lymph % (Auto) (20.0-40.0) % [place] % (Auto) (0.0-10.0) % Eos % (Auto) (0.0-4.0) % Baso % (Auto) (0.0-2.0) % Neut # (Auto) (1.8-7.0) K/uL Lymph # (Auto) (1.0-4.3) K/uL [place] # (Auto) (0.0-0.8) K/uL Eos # (Auto) (0.0-0.7) K/uL Baso # (Auto) (0.0-0.2) K/uL Neutrophils % (Manual) (50-75) % Band Neutrophils % (0-2) % Lymphocytes % (Manual) (20-40) % Monocytes % (Manual) (0-10) % Nucleated RBC % (0-0) % Toxic Granulation Platelet Estimate (NORMAL) Large Platelets Hypochromasia (manual) Poikilocytosis (manual Anisocytosis (manual) ESR (0-15) mm/hr Puncture Site A-line pCO2 22 L (35-45) mm/Hg pO2 214 H (80-100) mm/Hg HCO3 17.9 L (21-28) mmol/L ABG pH 7.40 (7.35-7.45) ABG Total CO2 14.3 L (22-28) mmol/L ABG O2 Saturation 100.0 H (95-98) % ABG Base Excess -9.1 L (-2.0-3.0) mmol/L [place]co Test Na ABG Potassium 4.2 (3.6-5.2) mmol/L A-a O2 Difference 472.0 mm/Hg Respiratory Index 2.2 Sodium 140 140.0 (132-148) mmol/l Chloride 106 108.0 H (98-107) mmol/L Glucose 95 (75-110) mg/dl Lactate 6.0 H* (0.7-2.1) mmol/L Vent Mode A/c pc Mechanical Rate 23 FiO2 100.0 % Tidal Volume PEEP 8 Crit Value Called To Shirley echevarria floriculturist Crit Value Called By Jamia cole rt Crit Value Read Back Y Blood Gas Notified Time 24 Potassium 4.5 (3.6-5.2) mmol/L Carbon Dioxide 14 L (22-30) mmol/L Anion Gap 25 H (10-20) BUN 45 H (9-20) mg/dL Creatinine 4.1 H (0.8-1.5) mg/dL Est GFR ( Amer) 17 Est GFR (Non-Af Amer) 14 POC Glucose (mg/dL) 152 H (65-110) mg/dL Random Glucose 94 (75-110) mg/dL Lactic Acid (0.7-2.1) mmol/L Calcium 6.6 L (8.6-10.4) mg/dl Phosphorus 7.3 H (2.5-4.5) mg/dL Magnesium 1.8 (1.6-2.3) mg/dL Total Bilirubin 2.8 H (0.2-1.3) mg/dL Direct Bilirubin (0.0-0.4) mg/dL AST 2358 H (17-59) U/L ALT 603 H D (21-72) U/L Alkaline Phosphatase 131 H (38-126) U/L C-Reactive Protein (0.0-9.9) mg/L Total Protein 5.1 L (6.3-8.3) g/dL Albumin 2.2 L D (3.5-5.0) g/dL Globulin 2.8 (2.2-3.9) gm/dL Albumin/Globulin Ratio 0.8 L (1.0-2.1) Arterial Blood Potassium 4.2 (3.6-5.2) mmol/L Stool Occult Blood (NEGATIVE) Random Vancomycin ug/mL Hepatitis A IgM Ab (NEGATIVE) Hep Bs Antigen (NEGATIVE) Hep B Core IgM Ab (NEGATIVE) Hepatitis C Antibody (NEGATIVE) Mycoplasma pneumon IgM (NEGATIVE) 08/12/17 08/12/17 08/12/17 Range/Units 23:40 21:02 19:58 WBC 13.8 H (4.8-10.8) K/uL RBC 3.08 L (4.40-5.90) Mil/uL Hgb 9.1 L (12.0-18.0) g/dL Hct 28.7 L (35.0-51.0) % MCV 93.2 (80.0-94.0) fL MCH 29.7 (27.0-31.0) pg MCHC 31.9 L (33.0-37.0) g/dL RDW 19.0 H (11.5-14.5) % Plt Count 81 L D (130-400) K/uL MPV 11.1 (7.2-11.7) fL Neut % (Auto) 96.1 H (50.0-75.0) % Lymph % (Auto) 2.0 L (20.0-40.0) % [place] % (Auto) 1.9 (0.0-10.0) % Eos % (Auto) 0.0 (0.0-4.0) % Baso % (Auto) 0.0 (0.0-2.0) % Neut # (Auto) 13.3 H (1.8-7.0) K/uL Lymph # (Auto) 0.3 L (1.0-4.3) K/uL [place] # (Auto) 0.3 (0.0-0.8) K/uL Eos # (Auto) 0.0 (0.0-0.7) K/uL Baso # (Auto) 0.0 (0.0-0.2) K/uL Neutrophils % (Manual) 88 H (50-75) % Band Neutrophils % 8 H (0-2) % Lymphocytes % (Manual) 3 L (20-40) % Monocytes % (Manual) 1 (0-10) % Nucleated RBC % 1 H (0-0) % Toxic Granulation Present Platelet Estimate Slightly decreased L (NORMAL) Large Platelets Hypochromasia (manual) Poikilocytosis (manual Slight Anisocytosis (manual) Slight ESR (0-15) mm/hr Puncture Site pCO2 (35-45) mm/Hg pO2 (80-100) mm/Hg HCO3 (21-28) mmol/L ABG pH (7.35-7.45) ABG Total CO2 (22-28) mmol/L ABG O2 Saturation (95-98) % ABG Base Excess (-2.0-3.0) mmol/L [place]co Test ABG Potassium (3.6-5.2) mmol/L A-a O2 Difference mm/Hg Respiratory Index Sodium (132-148) mmol/l Chloride (98-107) mmol/L Glucose (75-110) mg/dl Lactate (0.7-2.1) mmol/L Vent Mode Mechanical Rate FiO2 % Tidal Volume PEEP Crit Value Called To Crit Value Called By Crit Value Read Back Blood Gas Notified Time Potassium (3.6-5.2) mmol/L Carbon Dioxide (22-30) mmol/L Anion Gap (10-20) BUN (9-20) mg/dL Creatinine (0.8-1.5) mg/dL Est GFR ( Amer) Est GFR (Non-Af Amer) POC Glucose (mg/dL) 71 (65-110) mg/dL Random Glucose (75-110) mg/dL Lactic Acid 10.7 H* (0.7-2.1) mmol/L Calcium (8.6-10.4) mg/dl Phosphorus (2.5-4.5) mg/dL Magnesium (1.6-2.3) mg/dL Total Bilirubin (0.2-1.3) mg/dL Direct Bilirubin (0.0-0.4) mg/dL AST (17-59) U/L ALT (21-72) U/L Alkaline Phosphatase (38-126) U/L C-Reactive Protein (0.0-9.9) mg/L Total Protein (6.3-8.3) g/dL Albumin (3.5-5.0) g/dL Globulin (2.2-3.9) gm/dL Albumin/Globulin Ratio (1.0-2.1) Arterial Blood Potassium (3.6-5.2) mmol/L Stool Occult Blood (NEGATIVE) Random Vancomycin ug/mL Hepatitis A IgM Ab (NEGATIVE) Hep Bs Antigen (NEGATIVE) Hep B Core IgM Ab (NEGATIVE) Hepatitis C Antibody (NEGATIVE) Mycoplasma pneumon IgM (NEGATIVE) 08/12/17 08/12/17 08/12/17 Range/Units 19:58 15:40 15:32 WBC (4.8-10.8) K/uL RBC (4.40-5.90) Mil/uL Hgb (12.0-18.0) g/dL Hct (35.0-51.0) % MCV (80.0-94.0) fL MCH (27.0-31.0) pg MCHC (33.0-37.0) g/dL RDW (11.5-14.5) % Plt Count (130-400) K/uL MPV (7.2-11.7) fL Neut % (Auto) (50.0-75.0) % Lymph % (Auto) (20.0-40.0) % [place] % (Auto) (0.0-10.0) % Eos % (Auto) (0.0-4.0) % Baso % (Auto) (0.0-2.0) % Neut # (Auto) (1.8-7.0) K/uL Lymph # (Auto) (1.0-4.3) K/uL [place] # (Auto) (0.0-0.8) K/uL Eos # (Auto) (0.0-0.7) K/uL Baso # (Auto) (0.0-0.2) K/uL Neutrophils % (Manual) (50-75) % Band Neutrophils % (0-2) % Lymphocytes % (Manual) (20-40) % Monocytes % (Manual) (0-10) % Nucleated RBC % (0-0) % Toxic Granulation Platelet Estimate (NORMAL) Large Platelets Hypochromasia (manual) Poikilocytosis (manual Anisocytosis (manual) ESR (0-15) mm/hr Puncture Site pCO2 (35-45) mm/Hg pO2 (80-100) mm/Hg HCO3 (21-28) mmol/L ABG pH (7.35-7.45) ABG Total CO2 (22-28) mmol/L ABG O2 Saturation (95-98) % ABG Base Excess (-2.0-3.0) mmol/L [place]co Test ABG Potassium (3.6-5.2) mmol/L A-a O2 Difference mm/Hg Respiratory Index Sodium (132-148) mmol/l Chloride (98-107) mmol/L Glucose (75-110) mg/dl Lactate (0.7-2.1) mmol/L Vent Mode Mechanical Rate FiO2 % Tidal Volume PEEP Crit Value Called To Crit Value Called By Crit Value Read Back Blood Gas Notified Time Potassium (3.6-5.2) mmol/L Carbon Dioxide (22-30) mmol/L Anion Gap (10-20) BUN (9-20) mg/dL Creatinine (0.8-1.5) mg/dL Est GFR ( Amer) Est GFR (Non-Af Amer) POC Glucose (mg/dL) 104 (65-110) mg/dL Random Glucose (75-110) mg/dL Lactic Acid (0.7-2.1) mmol/L Calcium (8.6-10.4) mg/dl Phosphorus (2.5-4.5) mg/dL Magnesium (1.6-2.3) mg/dL Total Bilirubin (0.2-1.3) mg/dL Direct Bilirubin (0.0-0.4) mg/dL AST (17-59) U/L ALT (21-72) U/L Alkaline Phosphatase (38-126) U/L C-Reactive Protein (0.0-9.9) mg/L Total Protein (6.3-8.3) g/dL Albumin (3.5-5.0) g/dL Globulin (2.2-3.9) gm/dL Albumin/Globulin Ratio (1.0-2.1) Arterial Blood Potassium (3.6-5.2) mmol/L Stool Occult Blood (NEGATIVE) Random Vancomycin 14.01 ug/mL Hepatitis A IgM Ab (NEGATIVE) Hep Bs Antigen (NEGATIVE) Hep B Core IgM Ab (NEGATIVE) Hepatitis C Antibody (NEGATIVE) Mycoplasma pneumon IgM Negative (NEGATIVE) 08/12/17 08/12/17 08/12/17 Range/Units 14:30 11:48 11:35 WBC (4.8-10.8) K/uL RBC (4.40-5.90) Mil/uL Hgb (12.0-18.0) g/dL Hct (35.0-51.0) % MCV (80.0-94.0) fL MCH (27.0-31.0) pg MCHC (33.0-37.0) g/dL RDW (11.5-14.5) % Plt Count (130-400) K/uL MPV (7.2-11.7) fL Neut % (Auto) (50.0-75.0) % Lymph % (Auto) (20.0-40.0) % [place] % (Auto) (0.0-10.0) % Eos % (Auto) (0.0-4.0) % Baso % (Auto) (0.0-2.0) % Neut # (Auto) (1.8-7.0) K/uL Lymph # (Auto) (1.0-4.3) K/uL [place] # (Auto) (0.0-0.8) K/uL Eos # (Auto) (0.0-0.7) K/uL Baso # (Auto) (0.0-0.2) K/uL Neutrophils % (Manual) (50-75) % Band Neutrophils % (0-2) % Lymphocytes % (Manual) (20-40) % Monocytes % (Manual) (0-10) % Nucleated RBC % (0-0) % Toxic Granulation Platelet Estimate (NORMAL) Large Platelets Hypochromasia (manual) Poikilocytosis (manual Anisocytosis (manual) ESR (0-15) mm/hr Puncture Site Lf Lf pCO2 30 L 28 L (35-45) mm/Hg pO2 81 118 H (80-100) mm/Hg HCO3 16.0 L 18.2 L (21-28) mmol/L ABG pH 7.28 L 7.35 (7.35-7.45) ABG Total CO2 15.0 L 16.4 L (22-28) mmol/L ABG O2 Saturation 97.7 99.0 H (95-98) % ABG Base Excess -11.3 L -8.6 L (-2.0-3.0) mmol/L [place] Test Na Na ABG Potassium 4.2 4.4 (3.6-5.2) mmol/L A-a O2 Difference 595.0 560.0 mm/Hg Respiratory Index 7.3 4.7 Sodium 140.0 139.0 (132-148) mmol/l Chloride 110.0 H 104.0 (98-107) mmol/L Glucose 100 133 H (75-110) mg/dl Lactate 7.1 H* 6.9 H* (0.7-2.1) mmol/L Vent Mode Mechanical Rate 16 16 FiO2 100.0 100.0 % Tidal Volume 500 500 PEEP 5 5 Crit Value Called To Dr pablo shah Crit Value Called By [employer] therapist [employer] therapist Crit Value Read Back Y Y Blood Gas Notified Time 1440 1145 Potassium (3.6-5.2) mmol/L Carbon Dioxide (22-30) mmol/L Anion Gap (10-20) BUN (9-20) mg/dL Creatinine (0.8-1.5) mg/dL Est GFR ( Amer) Est GFR (Non-Af Amer) POC Glucose (mg/dL) 104 (65-110) mg/dL Random Glucose (75-110) mg/dL Lactic Acid (0.7-2.1) mmol/L Calcium (8.6-10.4) mg/dl Phosphorus (2.5-4.5) mg/dL Magnesium (1.6-2.3) mg/dL Total Bilirubin (0.2-1.3) mg/dL Direct Bilirubin (0.0-0.4) mg/dL AST (17-59) U/L ALT (21-72) U/L Alkaline Phosphatase (38-126) U/L C-Reactive Protein (0.0-9.9) mg/L Total Protein (6.3-8.3) g/dL Albumin (3.5-5.0) g/dL Globulin (2.2-3.9) gm/dL Albumin/Globulin Ratio (1.0-2.1) Arterial Blood Potassium 4.2 4.4 (3.6-5.2) mmol/L Stool Occult Blood (NEGATIVE) Random Vancomycin ug/mL Hepatitis A IgM Ab (NEGATIVE) Hep Bs Antigen (NEGATIVE) Hep B Core IgM Ab (NEGATIVE) Hepatitis C Antibody (NEGATIVE) Mycoplasma pneumon IgM (NEGATIVE) Laboratory Results - last 24 hr 08/12/17 08/12/17 08/12/17 11:35 11:48 14:30 WBC RBC Hgb Hct MCV MCH MCHC RDW Plt Count MPV Neut % (Auto) Lymph % (Auto) [place] % (Auto) Eos % (Auto) Baso % (Auto) Neut # (Auto) Lymph # (Auto) [place] # (Auto) Eos # (Auto) Baso # (Auto) Neutrophils % (Manual) Band Neutrophils % Lymphocytes % (Manual) Monocytes % (Manual) Nucleated RBC % Toxic Granulation Platelet Estimate Large Platelets Hypochromasia (manual) Poikilocytosis (manual Anisocytosis (manual) ESR Puncture Site Lf Lf pCO2 28 L 30 L pO2 118 H 81 HCO3 18.2 L 16.0 L ABG pH 7.35 7.28 L ABG Total CO2 16.4 L 15.0 L ABG O2 Saturation 99.0 H 97.7 ABG Base Excess -8.6 L -11.3 L [place] Test Na Na ABG Potassium 4.4 4.2 A-a O2 Difference 560.0 595.0 Respiratory Index 4.7 7.3 Sodium 139.0 140.0 Chloride 104.0 110.0 H Glucose 133 H 100 Lactate 6.9 H* 7.1 H* Vent Mode Mechanical Rate 16 16 FiO2 100.0 100.0 Tidal Volume 500 500 PEEP 5 5 Crit Value Called To Dr pablo shah Crit Value Called By [employer] therapist [employer] therapist Crit Value Read Back Y Y Blood Gas Notified Time 1145 1440 Potassium Carbon Dioxide Anion Gap BUN Creatinine Est GFR ( Amer) Est GFR (Non-Af Amer) POC Glucose (mg/dL) 104 Random Glucose Lactic Acid Calcium Phosphorus Magnesium Total Bilirubin Direct Bilirubin AST ALT Alkaline Phosphatase C-Reactive Protein Total Protein Albumin Globulin Albumin/Globulin Ratio Arterial Blood Potassium 4.4 4.2 Stool Occult Blood Random Vancomycin Hepatitis A IgM Ab Hep Bs Antigen Hep B Core IgM Ab Hepatitis C Antibody Mycoplasma pneumon IgM 08/12/17 08/12/17 08/12/17 15:32 15:40 19:58 WBC RBC Hgb Hct MCV MCH MCHC RDW Plt Count MPV Neut % (Auto) Lymph % (Auto) [place] % (Auto) Eos % (Auto) Baso % (Auto) Neut # (Auto) Lymph # (Auto) [place] # (Auto) Eos # (Auto) Baso # (Auto) Neutrophils % (Manual) Band Neutrophils % Lymphocytes % (Manual) Monocytes % (Manual) Nucleated RBC % Toxic Granulation Platelet Estimate Large Platelets Hypochromasia (manual) Poikilocytosis (manual Anisocytosis (manual) ESR Puncture Site pCO2 pO2 HCO3 ABG pH ABG Total CO2 ABG O2 Saturation ABG Base Excess [place] Test ABG Potassium A-a O2 Difference Respiratory Index Sodium Chloride Glucose Lactate Vent Mode Mechanical Rate FiO2 Tidal Volume PEEP Crit Value Called To Crit Value Called By Crit Value Read Back Blood Gas Notified Time Potassium Carbon Dioxide Anion Gap BUN Creatinine Est GFR ( Amer) Est GFR (Non-Af Amer) POC Glucose (mg/dL) 104 Random Glucose Lactic Acid Calcium Phosphorus Magnesium Total Bilirubin Direct Bilirubin AST ALT Alkaline Phosphatase C-Reactive Protein Total Protein Albumin Globulin Albumin/Globulin Ratio Arterial Blood Potassium Stool Occult Blood Random Vancomycin 14.01 Hepatitis A IgM Ab Hep Bs Antigen Hep B Core IgM Ab Hepatitis C Antibody Mycoplasma pneumon IgM Negative 08/12/17 08/12/17 08/12/17 19:58 21:02 23:40 WBC 13.8 H RBC 3.08 L Hgb 9.1 L Hct 28.7 L MCV 93.2 MCH 29.7 MCHC 31.9 L RDW 19.0 H Plt Count 81 L D MPV 11.1 Neut % (Auto) 96.1 H Lymph % (Auto) 2.0 L [place] % (Auto) 1.9 Eos % (Auto) 0.0 Baso % (Auto) 0.0 Neut # (Auto) 13.3 H Lymph # (Auto) 0.3 L [place] # (Auto) 0.3 Eos # (Auto) 0.0 Baso # (Auto) 0.0 Neutrophils % (Manual) 88 H Band Neutrophils % 8 H Lymphocytes % (Manual) 3 L Monocytes % (Manual) 1 Nucleated RBC % 1 H Toxic Granulation Present Platelet Estimate Slightly decreased L Large Platelets Hypochromasia (manual) Poikilocytosis (manual Slight Anisocytosis (manual) Slight ESR Puncture Site pCO2 pO2 HCO3 ABG pH ABG Total CO2 ABG O2 Saturation ABG Base Excess [place] Test ABG Potassium A-a O2 Difference Respiratory Index Sodium Chloride Glucose Lactate Vent Mode Mechanical Rate FiO2 Tidal Volume PEEP Crit Value Called To Crit Value Called By Crit Value Read Back Blood Gas Notified Time Potassium Carbon Dioxide Anion Gap BUN Creatinine Est GFR ( Amer) Est GFR (Non-Af Amer) POC Glucose (mg/dL) 71 Random Glucose Lactic Acid 10.7 H* Calcium Phosphorus Magnesium Total Bilirubin Direct Bilirubin AST ALT Alkaline Phosphatase C-Reactive Protein Total Protein Albumin Globulin Albumin/Globulin Ratio Arterial Blood Potassium Stool Occult Blood Random Vancomycin Hepatitis A IgM Ab Hep Bs Antigen Hep B Core IgM Ab Hepatitis C Antibody Mycoplasma pneumon IgM 08/13/17 08/13/17 08/13/17 00:02 00:19 00:21 WBC RBC Hgb Hct MCV MCH MCHC RDW Plt Count MPV Neut % (Auto) Lymph % (Auto) [place] % (Auto) Eos % (Auto) Baso % (Auto) Neut # (Auto) Lymph # (Auto) [place] # (Auto) Eos # (Auto) Baso # (Auto) Neutrophils % (Manual) Band Neutrophils % Lymphocytes % (Manual) Monocytes % (Manual) Nucleated RBC % Toxic Granulation Platelet Estimate Large Platelets Hypochromasia (manual) Poikilocytosis (manual Anisocytosis (manual) ESR Puncture Site A-line pCO2 22 L pO2 214 H HCO3 17.9 L ABG pH 7.40 ABG Total CO2 14.3 L ABG O2 Saturation 100.0 H ABG Base Excess -9.1 L [place] Test Na ABG Potassium 4.2 A-a O2 Difference 472.0 Respiratory Index 2.2 Sodium 140.0 140 Chloride 108.0 H 106 Glucose 95 Lactate 6.0 H* Vent Mode A/c pc Mechanical Rate 23 FiO2 100.0 Tidal Volume PEEP 8 Crit Value Called To Shirley echevarria floriculturist Crit Value Called By Jamia cole rt Crit Value Read Back Y Blood Gas Notified Time 24 Potassium 4.5 Carbon Dioxide 14 L Anion Gap 25 H BUN 45 H Creatinine 4.1 H Est GFR ( Amer) 17 Est GFR (Non-Af Amer) 14 POC Glucose (mg/dL) 152 H Random Glucose 94 Lactic Acid Calcium 6.6 L Phosphorus 7.3 H Magnesium 1.8 Total Bilirubin 2.8 H Direct Bilirubin AST 2358 H ALT 603 H D Alkaline Phosphatase 131 H C-Reactive Protein Total Protein 5.1 L Albumin 2.2 L D Globulin 2.8 Albumin/Globulin Ratio 0.8 L Arterial Blood Potassium 4.2 Stool Occult Blood Random Vancomycin Hepatitis A IgM Ab Hep Bs Antigen Hep B Core IgM Ab Hepatitis C Antibody Mycoplasma pneumon IgM 08/13/17 08/13/17 08/13/17 00:21 05:19 05:41 WBC RBC Hgb Hct MCV MCH MCHC RDW Plt Count MPV Neut % (Auto) Lymph % (Auto) [place] % (Auto) Eos % (Auto) Baso % (Auto) Neut # (Auto) Lymph # (Auto) [place] # (Auto) Eos # (Auto) Baso # (Auto) Neutrophils % (Manual) Band Neutrophils % Lymphocytes % (Manual) Monocytes % (Manual) Nucleated RBC % Toxic Granulation Platelet Estimate Large Platelets Hypochromasia (manual) Poikilocytosis (manual Anisocytosis (manual) ESR Puncture Site A-line pCO2 20 L pO2 240 H HCO3 17.9 L ABG pH 7.42 ABG Total CO2 13.6 L ABG O2 Saturation 99.7 H ABG Base Excess -9.1 L [place] Test Na ABG Potassium 4.0 A-a O2 Difference 448.0 Respiratory Index 1.9 Sodium 142.0 Chloride 111.0 H Glucose 135 H Lactate 3.1 H Vent Mode A/c pc Mechanical Rate 23 FiO2 100.0 Tidal Volume PEEP 8 Crit Value Called To Crit Value Called By Crit Value Read Back Blood Gas Notified Time Potassium Carbon Dioxide Anion Gap BUN Creatinine Est GFR ( Amer) Est GFR (Non-Af Amer) POC Glucose (mg/dL) 147 H Random Glucose Lactic Acid 6.0 H* Calcium Phosphorus Magnesium Total Bilirubin Direct Bilirubin AST ALT Alkaline Phosphatase C-Reactive Protein Total Protein Albumin Globulin Albumin/Globulin Ratio Arterial Blood Potassium 4.0 Stool Occult Blood Random Vancomycin Hepatitis A IgM Ab Hep Bs Antigen Hep B Core IgM Ab Hepatitis C Antibody Mycoplasma pneumon IgM 08/13/17 08/13/17 08/13/17 06:01 06:02 06:02 WBC 10.6 RBC 2.83 L Hgb 8.5 L Hct 26.4 L MCV 93.3 MCH 30.2 MCHC 32.4 L RDW 19.1 H Plt Count 80 L MPV 11.3 Neut % (Auto) 94.1 H Lymph % (Auto) 3.1 L [place] % (Auto) 2.6 Eos % (Auto) 0.0 Baso % (Auto) 0.2 Neut # (Auto) 10.0 H Lymph # (Auto) 0.3 L [place] # (Auto) 0.3 Eos # (Auto) 0.0 Baso # (Auto) 0.0 Neutrophils % (Manual) 82 H Band Neutrophils % 13 H* Lymphocytes % (Manual) 2 L Monocytes % (Manual) 3 Nucleated RBC % Toxic Granulation Platelet Estimate Decreased L Large Platelets Present Hypochromasia (manual) Slight Poikilocytosis (manual Anisocytosis (manual) Moderate ESR 20 H Puncture Site pCO2 pO2 HCO3 ABG pH ABG Total CO2 ABG O2 Saturation ABG Base Excess [place] Test ABG Potassium A-a O2 Difference Respiratory Index Sodium 145 Chloride 107 Glucose Lactate Vent Mode Mechanical Rate FiO2 Tidal Volume PEEP Crit Value Called To Crit Value Called By Crit Value Read Back Blood Gas Notified Time Potassium 4.4 Carbon Dioxide 14 L Anion Gap 28 H BUN 49 H Creatinine 4.3 H Est GFR ( Amer) 16 Est GFR (Non-Af Amer) 13 POC Glucose (mg/dL) Random Glucose 140 H Lactic Acid Calcium 6.3 L Phosphorus 6.5 H Magnesium 1.8 Total Bilirubin 2.6 H Direct Bilirubin 2.4 H AST 2412 H ALT 612 H Alkaline Phosphatase 126 C-Reactive Protein 244.10 H Total Protein 4.7 L Albumin 2.0 L Globulin 2.7 Albumin/Globulin Ratio 0.8 L Arterial Blood Potassium Stool Occult Blood Random Vancomycin Hepatitis A IgM Ab Negative Hep Bs Antigen Negative Hep B Core IgM Ab Negative Hepatitis C Antibody Negative Mycoplasma pneumon IgM 08/13/17 08/13/17 08/13/17 06:02 06:08 08:20 WBC RBC Hgb Hct MCV MCH MCHC RDW Plt Count MPV Neut % (Auto) Lymph % (Auto) [place] % (Auto) Eos % (Auto) Baso % (Auto) Neut # (Auto) Lymph # (Auto) [place] # (Auto) Eos # (Auto) Baso # (Auto) Neutrophils % (Manual) Band Neutrophils % Lymphocytes % (Manual) Monocytes % (Manual) Nucleated RBC % Toxic Granulation Platelet Estimate Large Platelets Hypochromasia (manual) Poikilocytosis (manual Anisocytosis (manual) ESR Puncture Site pCO2 pO2 HCO3 ABG pH ABG Total CO2 ABG O2 Saturation ABG Base Excess [place] Test ABG Potassium A-a O2 Difference Respiratory Index Sodium Chloride Glucose Lactate Vent Mode Mechanical Rate FiO2 Tidal Volume PEEP Crit Value Called To Crit Value Called By Crit Value Read Back Blood Gas Notified Time Potassium Carbon Dioxide Anion Gap BUN Creatinine Est GFR ( Amer) Est GFR (Non-Af Amer) POC Glucose (mg/dL) Random Glucose Lactic Acid 2.6 H Calcium Phosphorus Magnesium Total Bilirubin Direct Bilirubin AST ALT Alkaline Phosphatase C-Reactive Protein Total Protein Albumin Globulin Albumin/Globulin Ratio Arterial Blood Potassium Stool Occult Blood Positive H Random Vancomycin Hepatitis A IgM Ab Hep Bs Antigen Hep B Core IgM Ab Hepatitis C Antibody Negative Mycoplasma pneumon IgM Fingerstick Blood Sugar Results: 147 Assessment/Plan - Assessment and Plan (Free Text) Assessment: Patient is a 76 year old male with past medical history of ESRD on HD, CAD s/p CABG, Ischemic cardiomyopathy on Life Vest, Afib not on AC 2/2 history of GI bleed, Diabetes Mellitus, COPD presented to the Hospital for shortness of breath and weakness. Found to be hypotensive s/p permacath placement. Neurology: -Intubated, on fentanyl drip -History of prostate CA with metastasis -Palliative care on consult to establish goals of care Cardiology: -Patient with ischemic cardiomyopathy on life vest -Last echo 06/2017 showed LVEF 30% -Patient is Well known to Dr Potts -Troponins trending down -S/P Code blue with ROSC, now intubated -Patient with hypotension, Started on Levophed drip, phenylepherine titrated off -Midodrine 2.5mg TID -History of atrial fibrillation, not on anticoagulation 2/2 GI bleed -On Cardizem and Toprol XL at home, will hold these medications at this time Respiratory: -Intubated, not sedated -Atrovent Q6H -Solu-cortef 100mg IV Q8H -CXR 08/13: Biapical pleural thickening with upper lobe granulomatous changes. Mild to moderate venous congestion. Pathcy confluent increased markings at the left lung base with trace left pleural effusion. Tortuous aorta. Mild cardiomegaly -CXR 08/11: Mod. venous congestion. Small left pleural effusion. Bibasilar airspace opacities. Biapical pleural thickening with upper lobe granulomatous changes -Patient on sodium bicarb 650mg PO Q6H -urine legionella, mycoplasma negative -F/U urine strep pneumonia GI: -Tube feeds: Continue Nepro -Radiation Control Worker referral placed for tube feed goals -Protonix 40mg IVP -AST/ALT trending up, likely 2/2 shock liver -Will continue to monitor at this time Renal: -S/P right permacath placement (08/11/17), AV fistula is malfunctioning -Dr Chiu on consult for declot, will hold off as patient is unstable at this time -Hemodialysis schedule M,W,F -Nephro on consult, help appreciated Endocrine: -History of Diabetes Type 2 on insulin at home -Serum glucose on admission 31, Hypoglycemic -Hold Levemir 10 units SC HS -Accuchecks ACHS -Hypoglycemia protocol Infectious Disease: -Sepsis, source unknown at this time -Procalcitonin 6.7 -WBC 10.3, Bandemia 13 today -Code sepsis called yesterday: lactate trending down -Antibiotics: Merrem 500mg Q12H, Doxycycline 100mg IV Q12H, Recieved Genatmicin x 1 dose last night -Urine cultures, blood cultures pending GI/DVT ppx: -Protonix 40mg IV daily, SCDs -DVT ppx containdicated, hx of GI bleed <Dilshad Shah - Last Filed: 08/13/17 15:25> CCU Objective - Vital Signs / Intake & Output Vital Signs (Last 4 hours): Vital Signs Temp Pulse Resp BP Pulse Ox 08/13/17 15:00 120/56 L 08/13/17 14:30 114 H 18 100/58 L 94 L 08/13/17 14:20 98 F 22 116/45 L 93 L 08/13/17 14:00 153 H 20 98/38 L 93 L 08/13/17 13:30 124 H 19 98/34 L 94 L 08/13/17 13:00 125 H 15 98/52 L 96 08/13/17 12:30 132 H 21 90/60 L 91 L 08/13/17 12:00 98.1 F 133 H 19 108/56 L 97 08/13/17 11:40 19 98/38 L 97 08/13/17 11:30 128 H 18 100/39 L 99 Intake and Output (Last 8hrs): Intake & Output 08/13/17 08/13/17 08/13/17 06:59 14:59 22:59 Intake Total 2111.9 1340.4 113.6 Balance 2111.9 1340.4 113.6 Weight 131 lb 1.6 oz Intake: IV 481 574 Intake, IV Amount 1550.9 456.4 43.6 Right Distal Port 50 100 Right Distal Port Femoral 312.9 312.4 38.1 Right Medial Port Femoral 1100 Right Proximal Port 88 44.0 5.5 Femoral Oral 150 50 Tube Feeding 80 160 20 Other: # Voids Urine, Voided 0 0 0 # Bowel Movements 0 0 - Medications Active Medications: Active Medications Generic Name Dose Route Start Last Admin Trade Name Freq PRN Reason Stop Dose Admin Ascorbic Acid 1,000 mg 08/13/17 10:00 08/13/17 10:18 Vitamin C 500 Mg Tab PO 1,000 mg Q8H CORINA Administration Dextrose 0 ml 08/11/17 17:18 08/12/17 09:45 Dextrose 50% Inj IV 50 ml STAT PRN Administration Hypoglycemia Protocol Protocol Hydrocortisone Sodium Succinate 100 mg 08/13/17 03:30 08/13/17 11:54 Solu-Cortef IV 100 mg Q8H CORINA Administration Meropenem 500 mg/ Sodium 100 mls @ 100 mls/hr 08/12/17 22:00 08/13/17 14:28 Chloride IVPB 100 mls/hr Q12H CORINA Administration Protocol Phenylephrine HCl 120 mg/ 1,012 mls @ 10.12 mls/hr 08/12/17 18:30 08/13/17 07 :00 Sodium Chloride IV 0 mcg/min .Q24H PRN 0 mls/hr TITRATE PER MD ORDER Titration Protocol 20 MCG/MIN Norepinephrine Bitartrate 16 1,016 mls @ 15.24 mls/hr 08/12/17 18:30 14:55 mg/ Sodium Chloride IV 10 mcg/min .Q24H PRN 38.1 mls/hr TITRATE PER MD ORDER Titration Protocol 4 MCG/MIN Doxycycline Hyclate 100 mg/ 100 mls @ 100 mls/hr 08/12/17 20:00 08/13/17 07: 58 Sodium Chloride IVPB 100 mls/hr Q12H CORINA Administration Protocol Fentanyl Citrate 2,500 mcg/ 250 mls @ 11 mls/hr 08/12/17 19:45 08/13/17 06:24 Sodium Chloride IV 1 mcg/kg/hr .[id number] CORINA 5.5 mls/hr Protocol Titration 2 MCG/KG/HR Vasopressin 40 units/ Dextrose 42 mls @ 2.52 mls/hr 08/12/17 21:15 08/13/17 14:21 IV Not Given .[id number] CORINA Protocol 0.04 UNITS/MIN Insulin Aspart 0 unit 08/12/17 19:30 08/13/17 11:54 Novolog SC 1 unit Q6 CORINA Administration Protocol Ipratropium [place] 0.5 mg 08/12/17 19:45 08/13/17 13:45 Atrovent IH 0.5 mg RQ6 CORINA Administration Midodrine 2.5 mg 08/13/17 10:00 08/13/17 14:29 Proamatine PO 2.5 mg TID CORINA Administration Pantoprazole Sodium 40 mg 08/12/17 10:00 08/13/17 09:51 Protonix Inj IVP 40 mg DAILY CORINA Administration Sodium Bicarbonate 650 mg 08/13/17 00:00 08/13/17 11:55 Sodium Bicarbonate Tab PO 650 mg Q6 CORINA Administration Thiamine HCl 200 mg 08/12/17 20:30 Vitamin B1 Inj IV 08/15/17 12:31 Q8H CORINA - Patient Studies Lab Studies: Microbiology Studies 08/12/17 19:59 Gram Stain - Final Trachasp 08/11/17 17:16 MRSA Culture (Admit) - Final Naris MRSA NOT DETECTED 08/11/17 19:00 Blood Culture - Preliminary Blood-Venous NO GROWTH AFTER 24 HOURS Lab Studies 08/13/17 08/13/17 08/13/17 Range/Units 08:20 06:08 06:02 WBC (4.8-10.8) K/uL RBC (4.40-5.90) Mil/uL Hgb (12.0-18.0) g/dL Hct (35.0-51.0) % MCV (80.0-94.0) fL MCH (27.0-31.0) pg MCHC (33.0-37.0) g/dL RDW (11.5-14.5) % Plt Count (130-400) K/uL MPV (7.2-11.7) fL Neut % (Auto) (50.0-75.0) % Lymph % (Auto) (20.0-40.0) % [place] % (Auto) (0.0-10.0) % Eos % (Auto) (0.0-4.0) % Baso % (Auto) (0.0-2.0) % Neut # (Auto) (1.8-7.0) K/uL Lymph # (Auto) (1.0-4.3) K/uL [place] # (Auto) (0.0-0.8) K/uL Eos # (Auto) (0.0-0.7) K/uL Baso # (Auto) (0.0-0.2) K/uL Neutrophils % (Manual) (50-75) % Band Neutrophils % (0-2) % Lymphocytes % (Manual) (20-40) % Monocytes % (Manual) (0-10) % Nucleated RBC % (0-0) % Toxic Granulation Platelet Estimate (NORMAL) Large Platelets Hypochromasia (manual) Poikilocytosis (manual Anisocytosis (manual) ESR (0-15) mm/hr Puncture Site pCO2 (35-45) mm/Hg pO2 (80-100) mm/Hg HCO3 (21-28) mmol/L ABG pH (7.35-7.45) ABG Total CO2 (22-28) mmol/L ABG O2 Saturation (95-98) % ABG Base Excess (-2.0-3.0) mmol/L [place] Test ABG Potassium (3.6-5.2) mmol/L A-a O2 Difference mm/Hg Respiratory Index Sodium (132-148) mmol/l Chloride (98-107) mmol/L Glucose (75-110) mg/dl Lactate (0.7-2.1) mmol/L Vent Mode Mechanical Rate FiO2 % PEEP Crit Value Called To Crit Value Called By Crit Value Read Back Blood Gas Notified Time Potassium (3.6-5.2) mmol/L Carbon Dioxide (22-30) mmol/L Anion Gap (10-20) BUN (9-20) mg/dL Creatinine (0.8-1.5) mg/dL Est GFR ( Amer) Est GFR (Non-Af Amer) POC Glucose (mg/dL) (65-110) mg/dL Random Glucose (75-110) mg/dL Lactic Acid 2.6 H (0.7-2.1) mmol/L Calcium (8.6-10.4) mg/dl Phosphorus (2.5-4.5) mg/dL Magnesium (1.6-2.3) mg/dL Total Bilirubin (0.2-1.3) mg/dL Direct Bilirubin (0.0-0.4) mg/dL AST (17-59) U/L ALT (21-72) U/L Alkaline Phosphatase (38-126) U/L C-Reactive Protein (0.0-9.9) mg/L Total Protein (6.3-8.3) g/dL Albumin (3.5-5.0) g/dL Globulin (2.2-3.9) gm/dL Albumin/Globulin Ratio (1.0-2.1) Arterial Blood Potassium (3.6-5.2) mmol/L Stool Occult Blood Positive H (NEGATIVE) Random Vancomycin ug/mL Hepatitis A IgM Ab (NEGATIVE) Hep Bs Antigen (NEGATIVE) Hep B Core IgM Ab (NEGATIVE) Hepatitis C Antibody Negative (NEGATIVE) Mycoplasma pneumon IgM (NEGATIVE) 08/13/17 08/13/17 08/13/17 Range/Units 06:02 06:02 06:01 WBC 10.6 (4.8-10.8) K/uL RBC 2.83 L (4.40-5.90) Mil/uL Hgb 8.5 L (12.0-18.0) g/dL Hct 26.4 L (35.0-51.0) % MCV 93.3 (80.0-94.0) fL MCH 30.2 (27.0-31.0) pg MCHC 32.4 L (33.0-37.0) g/dL RDW 19.1 H (11.5-14.5) % Plt Count 80 L (130-400) K/uL MPV 11.3 (7.2-11.7) fL Neut % (Auto) 94.1 H (50.0-75.0) % Lymph % (Auto) 3.1 L (20.0-40.0) % [place] % (Auto) 2.6 (0.0-10.0) % Eos % (Auto) 0.0 (0.0-4.0) % Baso % (Auto) 0.2 (0.0-2.0) % Neut # (Auto) 10.0 H (1.8-7.0) K/uL Lymph # (Auto) 0.3 L (1.0-4.3) K/uL [place] # (Auto) 0.3 (0.0-0.8) K/uL Eos # (Auto) 0.0 (0.0-0.7) K/uL Baso # (Auto) 0.0 (0.0-0.2) K/uL Neutrophils % (Manual) 82 H (50-75) % Band Neutrophils % 13 H* (0-2) % Lymphocytes % (Manual) 2 L (20-40) % Monocytes % (Manual) 3 (0-10) % Nucleated RBC % (0-0) % Toxic Granulation Platelet Estimate Decreased L (NORMAL) Large Platelets Present Hypochromasia (manual) Slight Poikilocytosis (manual Anisocytosis (manual) Moderate ESR 20 H (0-15) mm/hr Puncture Site pCO2 (35-45) mm/Hg pO2 (80-100) mm/Hg HCO3 (21-28) mmol/L ABG pH (7.35-7.45) ABG Total CO2 (22-28) mmol/L ABG O2 Saturation (95-98) % ABG Base Excess (-2.0-3.0) mmol/L [place] Test ABG Potassium (3.6-5.2) mmol/L A-a O2 Difference mm/Hg Respiratory Index Sodium 145 (132-148) mmol/l Chloride 107 (98-107) mmol/L Glucose (75-110) mg/dl Lactate (0.7-2.1) mmol/L Vent Mode Mechanical Rate FiO2 % PEEP Crit Value Called To Crit Value Called By Crit Value Read Back Blood Gas Notified Time Potassium 4.4 (3.6-5.2) mmol/L Carbon Dioxide 14 L (22-30) mmol/L Anion Gap 28 H (10-20) BUN 49 H (9-20) mg/dL Creatinine 4.3 H (0.8-1.5) mg/dL Est GFR ( Amer) 16 Est GFR (Non-Af Amer) 13 POC Glucose (mg/dL) (65-110) mg/dL Random Glucose 140 H (75-110) mg/dL Lactic Acid (0.7-2.1) mmol/L Calcium 6.3 L (8.6-10.4) mg/dl Phosphorus 6.5 H (2.5-4.5) mg/dL Magnesium 1.8 (1.6-2.3) mg/dL Total Bilirubin 2.6 H (0.2-1.3) mg/dL Direct Bilirubin 2.4 H (0.0-0.4) mg/dL AST 2412 H (17-59) U/L ALT 612 H (21-72) U/L Alkaline Phosphatase 126 (38-126) U/L C-Reactive Protein 244.10 H (0.0-9.9) mg/L Total Protein 4.7 L (6.3-8.3) g/dL Albumin 2.0 L (3.5-5.0) g/dL Globulin 2.7 (2.2-3.9) gm/dL Albumin/Globulin Ratio 0.8 L (1.0-2.1) Arterial Blood Potassium (3.6-5.2) mmol/L Stool Occult Blood (NEGATIVE) Random Vancomycin ug/mL Hepatitis A IgM Ab Negative (NEGATIVE) Hep Bs Antigen Negative (NEGATIVE) Hep B Core IgM Ab Negative (NEGATIVE) Hepatitis C Antibody Negative (NEGATIVE) Mycoplasma pneumon IgM (NEGATIVE) 08/13/17 08/13/17 08/13/17 Range/Units 05:41 05:19 00:21 WBC (4.8-10.8) K/uL RBC (4.40-5.90) Mil/uL Hgb (12.0-18.0) g/dL Hct (35.0-51.0) % MCV (80.0-94.0) fL MCH (27.0-31.0) pg MCHC (33.0-37.0) g/dL RDW (11.5-14.5) % Plt Count (130-400) K/uL MPV (7.2-11.7) fL Neut % (Auto) (50.0-75.0) % Lymph % (Auto) (20.0-40.0) % [place] % (Auto) (0.0-10.0) % Eos % (Auto) (0.0-4.0) % Baso % (Auto) (0.0-2.0) % Neut # (Auto) (1.8-7.0) K/uL Lymph # (Auto) (1.0-4.3) K/uL [place] # (Auto) (0.0-0.8) K/uL Eos # (Auto) (0.0-0.7) K/uL Baso # (Auto) (0.0-0.2) K/uL Neutrophils % (Manual) (50-75) % Band Neutrophils % (0-2) % Lymphocytes % (Manual) (20-40) % Monocytes % (Manual) (0-10) % Nucleated RBC % (0-0) % Toxic Granulation Platelet Estimate (NORMAL) Large Platelets Hypochromasia (manual) Poikilocytosis (manual Anisocytosis (manual) ESR (0-15) mm/hr Puncture Site A-line pCO2 20 L (35-45) mm/Hg pO2 240 H (80-100) mm/Hg HCO3 17.9 L (21-28) mmol/L ABG pH 7.42 (7.35-7.45) ABG Total CO2 13.6 L (22-28) mmol/L ABG O2 Saturation 99.7 H (95-98) % ABG Base Excess -9.1 L (-2.0-3.0) mmol/L [place] Test Na ABG Potassium 4.0 (3.6-5.2) mmol/L A-a O2 Difference 448.0 mm/Hg Respiratory Index 1.9 Sodium 142.0 (132-148) mmol/l Chloride 111.0 H (98-107) mmol/L Glucose 135 H (75-110) mg/dl Lactate 3.1 H (0.7-2.1) mmol/L Vent Mode A/c pc Mechanical Rate 23 FiO2 100.0 % PEEP 8 Crit Value Called To Crit Value Called By Crit Value Read Back Blood Gas Notified Time Potassium (3.6-5.2) mmol/L Carbon Dioxide (22-30) mmol/L Anion Gap (10-20) BUN (9-20) mg/dL Creatinine (0.8-1.5) mg/dL Est GFR ( Amer) Est GFR (Non-Af Amer) POC Glucose (mg/dL) 147 H (65-110) mg/dL Random Glucose (75-110) mg/dL Lactic Acid 6.0 H* (0.7-2.1) mmol/L Calcium (8.6-10.4) mg/dl Phosphorus (2.5-4.5) mg/dL Magnesium (1.6-2.3) mg/dL Total Bilirubin (0.2-1.3) mg/dL Direct Bilirubin (0.0-0.4) mg/dL AST (17-59) U/L ALT (21-72) U/L Alkaline Phosphatase (38-126) U/L C-Reactive Protein (0.0-9.9) mg/L Total Protein (6.3-8.3) g/dL Albumin (3.5-5.0) g/dL Globulin (2.2-3.9) gm/dL Albumin/Globulin Ratio (1.0-2.1) Arterial Blood Potassium 4.0 (3.6-5.2) mmol/L Stool Occult Blood (NEGATIVE) Random Vancomycin ug/mL Hepatitis A IgM Ab (NEGATIVE) Hep Bs Antigen (NEGATIVE) Hep B Core IgM Ab (NEGATIVE) Hepatitis C Antibody (NEGATIVE) Mycoplasma pneumon IgM (NEGATIVE) 08/13/17 08/13/17 08/13/17 Range/Units 00:21 00:19 00:02 WBC (4.8-10.8) K/uL RBC (4.40-5.90) Mil/uL Hgb (12.0-18.0) g/dL Hct (35.0-51.0) % MCV (80.0-94.0) fL MCH (27.0-31.0) pg MCHC (33.0-37.0) g/dL RDW (11.5-14.5) % Plt Count (130-400) K/uL MPV (7.2-11.7) fL Neut % (Auto) (50.0-75.0) % Lymph % (Auto) (20.0-40.0) % [place] % (Auto) (0.0-10.0) % Eos % (Auto) (0.0-4.0) % Baso % (Auto) (0.0-2.0) % Neut # (Auto) (1.8-7.0) K/uL Lymph # (Auto) (1.0-4.3) K/uL [place] # (Auto) (0.0-0.8) K/uL Eos # (Auto) (0.0-0.7) K/uL Baso # (Auto) (0.0-0.2) K/uL Neutrophils % (Manual) (50-75) % Band Neutrophils % (0-2) % Lymphocytes % (Manual) (20-40) % Monocytes % (Manual) (0-10) % Nucleated RBC % (0-0) % Toxic Granulation Platelet Estimate (NORMAL) Large Platelets Hypochromasia (manual) Poikilocytosis (manual Anisocytosis (manual) ESR (0-15) mm/hr Puncture Site A-line pCO2 22 L (35-45) mm/Hg pO2 214 H (80-100) mm/Hg HCO3 17.9 L (21-28) mmol/L ABG pH 7.40 (7.35-7.45) ABG Total CO2 14.3 L (22-28) mmol/L ABG O2 Saturation 100.0 H (95-98) % ABG Base Excess -9.1 L (-2.0-3.0) mmol/L [place] Test Na ABG Potassium 4.2 (3.6-5.2) mmol/L A-a O2 Difference 472.0 mm/Hg Respiratory Index 2.2 Sodium 140 140.0 (132-148) mmol/l Chloride 106 108.0 H (98-107) mmol/L Glucose 95 (75-110) mg/dl Lactate 6.0 H* (0.7-2.1) mmol/L Vent Mode A/c pc Mechanical Rate 23 FiO2 100.0 % PEEP 8 Crit Value Called To Shirley echevarria floriculturist Crit Value Called By Jamia cole rt Crit Value Read Back Y Blood Gas Notified Time 24 Potassium 4.5 (3.6-5.2) mmol/L Carbon Dioxide 14 L (22-30) mmol/L Anion Gap 25 H (10-20) BUN 45 H (9-20) mg/dL Creatinine 4.1 H (0.8-1.5) mg/dL Est GFR ( Amer) 17 Est GFR (Non-Af Amer) 14 POC Glucose (mg/dL) 152 H (65-110) mg/dL Random Glucose 94 (75-110) mg/dL Lactic Acid (0.7-2.1) mmol/L Calcium 6.6 L (8.6-10.4) mg/dl Phosphorus 7.3 H (2.5-4.5) mg/dL Magnesium 1.8 (1.6-2.3) mg/dL Total Bilirubin 2.8 H (0.2-1.3) mg/dL Direct Bilirubin (0.0-0.4) mg/dL AST 2358 H (17-59) U/L ALT 603 H D (21-72) U/L Alkaline Phosphatase 131 H (38-126) U/L C-Reactive Protein (0.0-9.9) mg/L Total Protein 5.1 L (6.3-8.3) g/dL Albumin 2.2 L D (3.5-5.0) g/dL Globulin 2.8 (2.2-3.9) gm/dL Albumin/Globulin Ratio 0.8 L (1.0-2.1) Arterial Blood Potassium 4.2 (3.6-5.2) mmol/L Stool Occult Blood (NEGATIVE) Random Vancomycin ug/mL Hepatitis A IgM Ab (NEGATIVE) Hep Bs Antigen (NEGATIVE) Hep B Core IgM Ab (NEGATIVE) Hepatitis C Antibody (NEGATIVE) Mycoplasma pneumon IgM (NEGATIVE) 08/12/17 08/12/17 08/12/17 Range/Units 23:40 21:02 19:58 WBC 13.8 H (4.8-10.8) K/uL RBC 3.08 L (4.40-5.90) Mil/uL Hgb 9.1 L (12.0-18.0) g/dL Hct 28.7 L (35.0-51.0) % MCV 93.2 (80.0-94.0) fL MCH 29.7 (27.0-31.0) pg MCHC 31.9 L (33.0-37.0) g/dL RDW 19.0 H (11.5-14.5) % Plt Count 81 L D (130-400) K/uL MPV 11.1 (7.2-11.7) fL Neut % (Auto) 96.1 H (50.0-75.0) % Lymph % (Auto) 2.0 L (20.0-40.0) % [place] % (Auto) 1.9 (0.0-10.0) % Eos % (Auto) 0.0 (0.0-4.0) % Baso % (Auto) 0.0 (0.0-2.0) % Neut # (Auto) 13.3 H (1.8-7.0) K/uL Lymph # (Auto) 0.3 L (1.0-4.3) K/uL [place] # (Auto) 0.3 (0.0-0.8) K/uL Eos # (Auto) 0.0 (0.0-0.7) K/uL Baso # (Auto) 0.0 (0.0-0.2) K/uL Neutrophils % (Manual) 88 H (50-75) % Band Neutrophils % 8 H (0-2) % Lymphocytes % (Manual) 3 L (20-40) % Monocytes % (Manual) 1 (0-10) % Nucleated RBC % 1 H (0-0) % Toxic Granulation Present Platelet Estimate Slightly decreased L (NORMAL) Large Platelets Hypochromasia (manual) Poikilocytosis (manual Slight Anisocytosis (manual) Slight ESR (0-15) mm/hr Puncture Site pCO2 (35-45) mm/Hg pO2 (80-100) mm/Hg HCO3 (21-28) mmol/L ABG pH (7.35-7.45) ABG Total CO2 (22-28) mmol/L ABG O2 Saturation (95-98) % ABG Base Excess (-2.0-3.0) mmol/L [place] Test ABG Potassium (3.6-5.2) mmol/L A-a O2 Difference mm/Hg Respiratory Index Sodium (132-148) mmol/l Chloride (98-107) mmol/L Glucose (75-110) mg/dl Lactate (0.7-2.1) mmol/L Vent Mode Mechanical Rate FiO2 % PEEP Crit Value Called To Crit Value Called By Crit Value Read Back Blood Gas Notified Time Potassium (3.6-5.2) mmol/L Carbon Dioxide (22-30) mmol/L Anion Gap (10-20) BUN (9-20) mg/dL Creatinine (0.8-1.5) mg/dL Est GFR ( Amer) Est GFR (Non-Af Amer) POC Glucose (mg/dL) 71 (65-110) mg/dL Random Glucose (75-110) mg/dL Lactic Acid 10.7 H* (0.7-2.1) mmol/L Calcium (8.6-10.4) mg/dl Phosphorus (2.5-4.5) mg/dL Magnesium (1.6-2.3) mg/dL Total Bilirubin (0.2-1.3) mg/dL Direct Bilirubin (0.0-0.4) mg/dL AST (17-59) U/L ALT (21-72) U/L Alkaline Phosphatase (38-126) U/L C-Reactive Protein (0.0-9.9) mg/L Total Protein (6.3-8.3) g/dL Albumin (3.5-5.0) g/dL Globulin (2.2-3.9) gm/dL Albumin/Globulin Ratio (1.0-2.1) Arterial Blood Potassium (3.6-5.2) mmol/L Stool Occult Blood (NEGATIVE) Random Vancomycin ug/mL Hepatitis A IgM Ab (NEGATIVE) Hep Bs Antigen (NEGATIVE) Hep B Core IgM Ab (NEGATIVE) Hepatitis C Antibody (NEGATIVE) Mycoplasma pneumon IgM (NEGATIVE) 08/12/17 08/12/17 08/12/17 Range/Units 19:58 15:40 15:32 WBC (4.8-10.8) K/uL RBC (4.40-5.90) Mil/uL Hgb (12.0-18.0) g/dL Hct (35.0-51.0) % MCV (80.0-94.0) fL MCH (27.0-31.0) pg MCHC (33.0-37.0) g/dL RDW (11.5-14.5) % Plt Count (130-400) K/uL MPV (7.2-11.7) fL Neut % (Auto) (50.0-75.0) % Lymph % (Auto) (20.0-40.0) % [place] % (Auto) (0.0-10.0) % Eos % (Auto) (0.0-4.0) % Baso % (Auto) (0.0-2.0) % Neut # (Auto) (1.8-7.0) K/uL Lymph # (Auto) (1.0-4.3) K/uL [place] # (Auto) (0.0-0.8) K/uL Eos # (Auto) (0.0-0.7) K/uL Baso # (Auto) (0.0-0.2) K/uL Neutrophils % (Manual) (50-75) % Band Neutrophils % (0-2) % Lymphocytes % (Manual) (20-40) % Monocytes % (Manual) (0-10) % Nucleated RBC % (0-0) % Toxic Granulation Platelet Estimate (NORMAL) Large Platelets Hypochromasia (manual) Poikilocytosis (manual Anisocytosis (manual) ESR (0-15) mm/hr Puncture Site pCO2 (35-45) mm/Hg pO2 (80-100) mm/Hg HCO3 (21-28) mmol/L ABG pH (7.35-7.45) ABG Total CO2 (22-28) mmol/L ABG O2 Saturation (95-98) % ABG Base Excess (-2.0-3.0) mmol/L [place] Test ABG Potassium (3.6-5.2) mmol/L A-a O2 Difference mm/Hg Respiratory Index Sodium (132-148) mmol/l Chloride (98-107) mmol/L Glucose (75-110) mg/dl Lactate (0.7-2.1) mmol/L Vent Mode Mechanical Rate FiO2 % PEEP Crit Value Called To Crit Value Called By Crit Value Read Back Blood Gas Notified Time Potassium (3.6-5.2) mmol/L Carbon Dioxide (22-30) mmol/L Anion Gap (10-20) BUN (9-20) mg/dL Creatinine (0.8-1.5) mg/dL Est GFR ( Amer) Est GFR (Non-Af Amer) POC Glucose (mg/dL) 104 (65-110) mg/dL Random Glucose (75-110) mg/dL Lactic Acid (0.7-2.1) mmol/L Calcium (8.6-10.4) mg/dl Phosphorus (2.5-4.5) mg/dL Magnesium (1.6-2.3) mg/dL Total Bilirubin (0.2-1.3) mg/dL Direct Bilirubin (0.0-0.4) mg/dL AST (17-59) U/L ALT (21-72) U/L Alkaline Phosphatase (38-126) U/L C-Reactive Protein (0.0-9.9) mg/L Total Protein (6.3-8.3) g/dL Albumin (3.5-5.0) g/dL Globulin (2.2-3.9) gm/dL Albumin/Globulin Ratio (1.0-2.1) Arterial Blood Potassium (3.6-5.2) mmol/L Stool Occult Blood (NEGATIVE) Random Vancomycin 14.01 ug/mL Hepatitis A IgM Ab (NEGATIVE) Hep Bs Antigen (NEGATIVE) Hep B Core IgM Ab (NEGATIVE) Hepatitis C Antibody (NEGATIVE) Mycoplasma pneumon IgM Negative (NEGATIVE) Laboratory Results - last 24 hr 08/12/17 08/12/17 08/12/17 15:32 15:40 19:58 WBC RBC Hgb Hct MCV MCH MCHC RDW Plt Count MPV Neut % (Auto) Lymph % (Auto) [place] % (Auto) Eos % (Auto) Baso % (Auto) Neut # (Auto) Lymph # (Auto) [place] # (Auto) Eos # (Auto) Baso # (Auto) Neutrophils % (Manual) Band Neutrophils % Lymphocytes % (Manual) Monocytes % (Manual) Nucleated RBC % Toxic Granulation Platelet Estimate Large Platelets Hypochromasia (manual) Poikilocytosis (manual Anisocytosis (manual) ESR Puncture Site pCO2 pO2 HCO3 ABG pH ABG Total CO2 ABG O2 Saturation ABG Base Excess [place] Test ABG Potassium A-a O2 Difference Respiratory Index Sodium Chloride Glucose Lactate Vent Mode Mechanical Rate FiO2 PEEP Crit Value Called To Crit Value Called By Crit Value Read Back Blood Gas Notified Time Potassium Carbon Dioxide Anion Gap BUN Creatinine Est GFR ( Amer) Est GFR (Non-Af Amer) POC Glucose (mg/dL) 104 Random Glucose Lactic Acid Calcium Phosphorus Magnesium Total Bilirubin Direct Bilirubin AST ALT Alkaline Phosphatase C-Reactive Protein Total Protein Albumin Globulin Albumin/Globulin Ratio Arterial Blood Potassium Stool Occult Blood Random Vancomycin 14.01 Hepatitis A IgM Ab Hep Bs Antigen Hep B Core IgM Ab Hepatitis C Antibody Mycoplasma pneumon IgM Negative 08/12/17 08/12/17 08/12/17 19:58 21:02 23:40 WBC 13.8 H RBC 3.08 L Hgb 9.1 L Hct 28.7 L MCV 93.2 MCH 29.7 MCHC 31.9 L RDW 19.0 H Plt Count 81 L D MPV 11.1 Neut % (Auto) 96.1 H Lymph % (Auto) 2.0 L [place] % (Auto) 1.9 Eos % (Auto) 0.0 Baso % (Auto) 0.0 Neut # (Auto) 13.3 H Lymph # (Auto) 0.3 L [place] # (Auto) 0.3 Eos # (Auto) 0.0 Baso # (Auto) 0.0 Neutrophils % (Manual) 88 H Band Neutrophils % 8 H Lymphocytes % (Manual) 3 L Monocytes % (Manual) 1 Nucleated RBC % 1 H Toxic Granulation Present Platelet Estimate Slightly decreased L Large Platelets Hypochromasia (manual) Poikilocytosis (manual Slight Anisocytosis (manual) Slight ESR Puncture Site pCO2 pO2 HCO3 ABG pH ABG Total CO2 ABG O2 Saturation ABG Base Excess [place] Test ABG Potassium A-a O2 Difference Respiratory Index Sodium Chloride Glucose Lactate Vent Mode Mechanical Rate FiO2 PEEP Crit Value Called To Crit Value Called By Crit Value Read Back Blood Gas Notified Time Potassium Carbon Dioxide Anion Gap BUN Creatinine Est GFR ( Amer) Est GFR (Non-Af Amer) POC Glucose (mg/dL) 71 Random Glucose Lactic Acid 10.7 H* Calcium Phosphorus Magnesium Total Bilirubin Direct Bilirubin AST ALT Alkaline Phosphatase C-Reactive Protein Total Protein Albumin Globulin Albumin/Globulin Ratio Arterial Blood Potassium Stool Occult Blood Random Vancomycin Hepatitis A IgM Ab Hep Bs Antigen Hep B Core IgM Ab Hepatitis C Antibody Mycoplasma pneumon IgM 08/13/17 08/13/17 08/13/17 00:02 00:19 00:21 WBC RBC Hgb Hct MCV MCH MCHC RDW Plt Count MPV Neut % (Auto) Lymph % (Auto) [place] % (Auto) Eos % (Auto) Baso % (Auto) Neut # (Auto) Lymph # (Auto) [place] # (Auto) Eos # (Auto) Baso # (Auto) Neutrophils % (Manual) Band Neutrophils % Lymphocytes % (Manual) Monocytes % (Manual) Nucleated RBC % Toxic Granulation Platelet Estimate Large Platelets Hypochromasia (manual) Poikilocytosis (manual Anisocytosis (manual) ESR Puncture Site A-line pCO2 22 L pO2 214 H HCO3 17.9 L ABG pH 7.40 ABG Total CO2 14.3 L ABG O2 Saturation 100.0 H ABG Base Excess -9.1 L [place] Test Na ABG Potassium 4.2 A-a O2 Difference 472.0 Respiratory Index 2.2 Sodium 140.0 140 Chloride 108.0 H 106 Glucose 95 Lactate 6.0 H* Vent Mode A/c pc Mechanical Rate 23 FiO2 100.0 PEEP 8 Crit Value Called To Shirley echevarria floriculturist Crit Value Called By Jamia cole rt Crit Value Read Back Y Blood Gas Notified Time 24 Potassium 4.5 Carbon Dioxide 14 L Anion Gap 25 H BUN 45 H Creatinine 4.1 H Est GFR ( Amer) 17 Est GFR (Non-Af Amer) 14 POC Glucose (mg/dL) 152 H Random Glucose 94 Lactic Acid Calcium 6.6 L Phosphorus 7.3 H Magnesium 1.8 Total Bilirubin 2.8 H Direct Bilirubin AST 2358 H ALT 603 H D Alkaline Phosphatase 131 H C-Reactive Protein Total Protein 5.1 L Albumin 2.2 L D Globulin 2.8 Albumin/Globulin Ratio 0.8 L Arterial Blood Potassium 4.2 Stool Occult Blood Random Vancomycin Hepatitis A IgM Ab Hep Bs Antigen Hep B Core IgM Ab Hepatitis C Antibody Mycoplasma pneumon IgM 08/13/17 08/13/17 08/13/17 00:21 05:19 05:41 WBC RBC Hgb Hct MCV MCH MCHC RDW Plt Count MPV Neut % (Auto) Lymph % (Auto) [place] % (Auto) Eos % (Auto) Baso % (Auto) Neut # (Auto) Lymph # (Auto) [place] # (Auto) Eos # (Auto) Baso # (Auto) Neutrophils % (Manual) Band Neutrophils % Lymphocytes % (Manual) Monocytes % (Manual) Nucleated RBC % Toxic Granulation Platelet Estimate Large Platelets Hypochromasia (manual) Poikilocytosis (manual Anisocytosis (manual) ESR Puncture Site A-line pCO2 20 L pO2 240 H HCO3 17.9 L ABG pH 7.42 ABG Total CO2 13.6 L ABG O2 Saturation 99.7 H ABG Base Excess -9.1 L [place] Test Na ABG Potassium 4.0 A-a O2 Difference 448.0 Respiratory Index 1.9 Sodium 142.0 Chloride 111.0 H Glucose 135 H Lactate 3.1 H Vent Mode A/c pc Mechanical Rate 23 FiO2 100.0 PEEP 8 Crit Value Called To Crit Value Called By Crit Value Read Back Blood Gas Notified Time Potassium Carbon Dioxide Anion Gap BUN Creatinine Est GFR ( Amer) Est GFR (Non-Af Amer) POC Glucose (mg/dL) 147 H Random Glucose Lactic Acid 6.0 H* Calcium Phosphorus Magnesium Total Bilirubin Direct Bilirubin AST ALT Alkaline Phosphatase C-Reactive Protein Total Protein Albumin Globulin Albumin/Globulin Ratio Arterial Blood Potassium 4.0 Stool Occult Blood Random Vancomycin Hepatitis A IgM Ab Hep Bs Antigen Hep B Core IgM Ab Hepatitis C Antibody Mycoplasma pneumon IgM 08/13/17 08/13/17 08/13/17 06:01 06:02 06:02 WBC 10.6 RBC 2.83 L Hgb 8.5 L Hct 26.4 L MCV 93.3 MCH 30.2 MCHC 32.4 L RDW 19.1 H Plt Count 80 L MPV 11.3 Neut % (Auto) 94.1 H Lymph % (Auto) 3.1 L [place] % (Auto) 2.6 Eos % (Auto) 0.0 Baso % (Auto) 0.2 Neut # (Auto) 10.0 H Lymph # (Auto) 0.3 L [place] # (Auto) 0.3 Eos # (Auto) 0.0 Baso # (Auto) 0.0 Neutrophils % (Manual) 82 H Band Neutrophils % 13 H* Lymphocytes % (Manual) 2 L Monocytes % (Manual) 3 Nucleated RBC % Toxic Granulation Platelet Estimate Decreased L Large Platelets Present Hypochromasia (manual) Slight Poikilocytosis (manual Anisocytosis (manual) Moderate ESR 20 H Puncture Site pCO2 pO2 HCO3 ABG pH ABG Total CO2 ABG O2 Saturation ABG Base Excess [place] Test ABG Potassium A-a O2 Difference Respiratory Index Sodium 145 Chloride 107 Glucose Lactate Vent Mode Mechanical Rate FiO2 PEEP Crit Value Called To Crit Value Called By Crit Value Read Back Blood Gas Notified Time Potassium 4.4 Carbon Dioxide 14 L Anion Gap 28 H BUN 49 H Creatinine 4.3 H Est GFR ( Amer) 16 Est GFR (Non-Af Amer) 13 POC Glucose (mg/dL) Random Glucose 140 H Lactic Acid Calcium 6.3 L Phosphorus 6.5 H Magnesium 1.8 Total Bilirubin 2.6 H Direct Bilirubin 2.4 H AST 2412 H ALT 612 H Alkaline Phosphatase 126 C-Reactive Protein 244.10 H Total Protein 4.7 L Albumin 2.0 L Globulin 2.7 Albumin/Globulin Ratio 0.8 L Arterial Blood Potassium Stool Occult Blood Random Vancomycin Hepatitis A IgM Ab Negative Hep Bs Antigen Negative Hep B Core IgM Ab Negative Hepatitis C Antibody Negative Mycoplasma pneumon IgM 08/13/17 08/13/17 08/13/17 06:02 06:08 08:20 WBC RBC Hgb Hct MCV MCH MCHC RDW Plt Count MPV Neut % (Auto) Lymph % (Auto) [place] % (Auto) Eos % (Auto) Baso % (Auto) Neut # (Auto) Lymph # (Auto) [place] # (Auto) Eos # (Auto) Baso # (Auto) Neutrophils % (Manual) Band Neutrophils % Lymphocytes % (Manual) Monocytes % (Manual) Nucleated RBC % Toxic Granulation Platelet Estimate Large Platelets Hypochromasia (manual) Poikilocytosis (manual Anisocytosis (manual) ESR Puncture Site pCO2 pO2 HCO3 ABG pH ABG Total CO2 ABG O2 Saturation ABG Base Excess [place] Test ABG Potassium A-a O2 Difference Respiratory Index Sodium Chloride Glucose Lactate Vent Mode Mechanical Rate FiO2 PEEP Crit Value Called To Crit Value Called By Crit Value Read Back Blood Gas Notified Time Potassium Carbon Dioxide Anion Gap BUN Creatinine Est GFR ( Amer) Est GFR (Non-Af Amer) POC Glucose (mg/dL) Random Glucose Lactic Acid 2.6 H Calcium Phosphorus Magnesium Total Bilirubin Direct Bilirubin AST ALT Alkaline Phosphatase C-Reactive Protein Total Protein Albumin Globulin Albumin/Globulin Ratio Arterial Blood Potassium Stool Occult Blood Positive H Random Vancomycin Hepatitis A IgM Ab Hep Bs Antigen Hep B Core IgM Ab Hepatitis C Antibody Negative Mycoplasma pneumon IgM Attending/Attestation - Attestation I have personally seen and examined this patient.: Yes I have fully participated in the care of the patient.: Yes I have reviewed all pertinent clinical information: Yes Notes (Text): 08/13/17 15:22 patient seen and examined in the intensive care unit. Case discussed with house staff in the morning rounds. Continue IV antibiotics Continue Levophed drip For hemodialysis today Follow up culture and sensitivity On IV steroids
--- NOTE | 2017-08-13 13:12 | CP.PCM.PN ---
Subjective - Date & Time of Evaluation Date of Evaluation: 08/13/17 Time of Evaluation: 09:00 - Subjective Subjective: patient seen, still intubated, BP better , staff update , being treated for sepsis patient is sedated but opens eyes with voice call, had discussion with daughter Savanah Objective - Vital Signs/Intake and Output Vital Signs (last 24 hours): Temp Pulse Resp BP Pulse Ox 98.1 F 132 H 20 100/39 L 95 08/13/17 12:00 08/13/17 12:30 08/13/17 13:00 08/13/17 13:00 08/13/17 13:00 Intake and Output: 08/13/17 08/13/17 06:59 18:59 Intake Total 4108.6 868.0 Balance 4108.6 868.0 - Medications Medications: Current Medications Ascorbic Acid (Vitamin C 500 Mg Tab) 1,000 mg PO Q8H [facility] Last Admin: 08/13/17 10:18 Dose: 1,000 mg Dextrose (Dextrose 50% Inj) 0 ml IV STAT PRN; Protocol PRN Reason: Hypoglycemia Protocol Last Admin: 08/12/17 09:45 Dose: 50 ml Hydrocortisone Sodium Succinate (Solu-Cortef) 100 mg IV Q8H [facility] Last Admin: 08/13/17 11:54 Dose: 100 mg Meropenem 500 mg/ Sodium (Chloride) 100 mls @ 100 mls/hr IVPB Q12H [facility] PRN Reason: Protocol Last Admin: 08/12/17 21:35 Dose: 100 mls/hr Phenylephrine HCl 120 mg/ (Sodium Chloride) 1,012 mls @ 10.12 mls/hr IV .Q24H PRN; Protocol; 20 MCG/MIN PRN Reason: TITRATE PER MD ORDER Last Titration: 08/13/17 07:00 Dose: 0 mcg/min, 0 mls/hr Norepinephrine Bitartrate 16 (mg/ Sodium Chloride) 1,016 mls @ 15.24 mls/hr IV .Q24H PRN; Protocol; 4 MCG/MIN PRN Reason: TITRATE PER MD ORDER Last Titration: 08/13/17 07:53 Dose: 10 mcg/min, 38.1 mls/hr Doxycycline Hyclate 100 mg/ (Sodium Chloride) 100 mls @ 100 mls/hr IVPB Q12H [facility] PRN Reason: Protocol Last Admin: 08/13/17 07:58 Dose: 100 mls/hr Fentanyl Citrate 2,500 mcg/ (Sodium Chloride) 250 mls @ 11 mls/hr IV .[id number] [place]; 2 MCG/KG/HR PRN Reason: Protocol Last Titration: 08/13/17 06:24 Dose: 1 mcg/kg/hr, 5.5 mls/hr Vasopressin 40 units/ Dextrose 42 mls @ 2.52 mls/hr IV .[id number] [place]; 0.04 UNITS /MIN PRN Reason: Protocol Last Admin: 08/12/17 21:30 Dose: Not Given Insulin Aspart (Novolog) 0 unit SC Q6 [facility] PRN Reason: Protocol Last Admin: 08/13/17 11:54 Dose: 1 unit Ipratropium [place] (Atrovent) 0.5 mg IH RQ6 [facility] Last Admin: 08/13/17 07:40 Dose: 0.5 mg Midodrine (Proamatine) 2.5 mg PO TID [facility] Last Admin: 08/13/17 10:19 Dose: 2.5 mg Pantoprazole Sodium (Protonix Inj) 40 mg IVP DAILY [facility] Last Admin: 08/13/17 09:51 Dose: 40 mg Sodium Bicarbonate (Sodium Bicarbonate Tab) 650 mg PO Q6 [facility] Last Admin: 08/13/17 11:55 Dose: 650 mg Thiamine HCl (Vitamin B1 Inj) 200 mg IV Q8H [facility] Stop: 08/15/17 12:31 - Labs Labs: 08/13/17 06:01 08/13/17 06:02 PT 17.1 SECONDS (9.7-12.2) H 08/12/17 05:07 INR 1.5 08/12/17 05:07 APTT 42 SECONDS (21-34) H 08/12/17 05:07 - Constitutional Appears: Other (inyubated sedated but opens eyes with voice call) - Head Exam Head Exam: ATRAUMATIC - Eye Exam Eye Exam: Normal appearance. absent: Nystagmus - ENT Exam ENT Exam: Mucous Membranes Dry - Neck Exam Neck Exam: Full ROM (p) - Respiratory Exam Respiratory Exam: NORMAL BREATHING PATTERN (intubated) - Cardiovascular Exam Cardiovascular Exam: REGULAR RHYTHM - GI/Abdominal Exam GI & Abdominal Exam: Soft, Normal Bowel Sounds. 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
[2017-08-13] MEDS: Vasopressin 40 UNITS in Dextrose 5% In Water 40 ML IV SCH (14:21)
[2017-08-13] MEDS: Meropenem 500 MG in Sodium Chloride 0.9% 100 ML IVPB SCH ×2 (14:28→21:26)
[2017-08-13 14:53] VITALS: PULSE 139
[2017-08-13] MEDS ORDERED: Digoxin 500 mcg/2ml (0.5 mg/2ml) Inj IVP ONE (15:00)
--- NOTE | 2017-08-13 15:26 | CP.PCM.PN ---
Subjective - Date & Time of Evaluation Date of Evaluation: 08/13/17 Time of Evaluation: 15:23 - Subjective Subjective: completing HD, 1.7 kg uf escalating pressors with HD on respirator fio2 80% ROS cannot be obtained Objective - Vital Signs/Intake and Output Vital Signs (last 24 hours): Temp Pulse Resp BP Pulse Ox 98 F 114 H 18 120/56 L 94 L 08/13/17 14:20 08/13/17 14:30 08/13/17 14:30 08/13/17 15:00 08/13/17 14:30 Intake and Output: 08/13/17 08/13/17 06:59 18:59 Intake Total 4108.6 1454.0 Balance 4108.6 1454.0 - Medications Medications: Current Medications Ascorbic Acid (Vitamin C 500 Mg Tab) 1,000 mg PO Q8H [facility] Last Admin: 08/13/17 10:18 Dose: 1,000 mg Dextrose (Dextrose 50% Inj) 0 ml IV STAT PRN; Protocol PRN Reason: Hypoglycemia Protocol Last Admin: 08/12/17 09:45 Dose: 50 ml Hydrocortisone Sodium Succinate (Solu-Cortef) 100 mg IV Q8H [facility] Last Admin: 08/13/17 11:54 Dose: 100 mg Meropenem 500 mg/ Sodium (Chloride) 100 mls @ 100 mls/hr IVPB Q12H [facility] PRN Reason: Protocol Last Admin: 08/13/17 14:28 Dose: 100 mls/hr Phenylephrine HCl 120 mg/ (Sodium Chloride) 1,012 mls @ 10.12 mls/hr IV .Q24H PRN; Protocol; 20 MCG/MIN PRN Reason: TITRATE PER MD ORDER Last Titration: 08/13/17 07:00 Dose: 0 mcg/min, 0 mls/hr Norepinephrine Bitartrate 16 (mg/ Sodium Chloride) 1,016 mls @ 15.24 mls/hr IV .Q24H PRN; Protocol; 4 MCG/MIN PRN Reason: TITRATE PER MD ORDER Last Titration: 08/13/17 14:55 Dose: 10 mcg/min, 38.1 mls/hr Doxycycline Hyclate 100 mg/ (Sodium Chloride) 100 mls @ 100 mls/hr IVPB Q12H [facility] PRN Reason: Protocol Last Admin: 08/13/17 07:58 Dose: 100 mls/hr Fentanyl Citrate 2,500 mcg/ (Sodium Chloride) 250 mls @ 11 mls/hr IV .[id number] [facility]; 2 MCG/KG/HR PRN Reason: Protocol Last Titration: 08/13/17 06:24 Dose: 1 mcg/kg/hr, 5.5 mls/hr Vasopressin 40 units/ Dextrose 42 mls @ 2.52 mls/hr IV .[id number] [facility]; 0.04 UNITS /MIN PRN Reason: Protocol Last Admin: 08/13/17 14:21 Dose: Not Given Insulin Aspart (Novolog) 0 unit SC Q6 [facility] PRN Reason: Protocol Last Admin: 08/13/17 11:54 Dose: 1 unit Ipratropium [place] (Atrovent) 0.5 mg IH RQ6 [facility] Last Admin: 08/13/17 13:45 Dose: 0.5 mg Midodrine (Proamatine) 2.5 mg PO TID [facility] Last Admin: 08/13/17 14:29 Dose: 2.5 mg Pantoprazole Sodium (Protonix Inj) 40 mg IVP DAILY [facility] Last Admin: 08/13/17 09:51 Dose: 40 mg Sodium Bicarbonate (Sodium Bicarbonate Tab) 650 mg PO Q6 [facility] Last Admin: 08/13/17 11:55 Dose: 650 mg Thiamine HCl (Vitamin B1 Inj) 200 mg IV Q8H [facility] Stop: 08/15/17 12:31 - Labs Labs: 08/13/17 06:01 08/13/17 06:02 PT 17.1 SECONDS (9.7-12.2) H 08/12/17 05:07 INR 1.5 08/12/17 05:07 APTT 42 SECONDS (21-34) H 08/12/17 05:07 - Constitutional Appears: In Acute Distress, Chronically Ill - Head Exam Head Exam: ATRAUMATIC, NORMAL INSPECTION - ENT Exam Additional comments: endotracheal tube - Respiratory Exam Respiratory Exam: Decreased Breath Sounds. absent: Accessory Muscle Use - Cardiovascular Exam Cardiovascular Exam: Irregular Rhythm. absent: Rubs - GI/Abdominal Exam GI & Abdominal Exam: Distended. absent: Tenderness - Extremities Exam Extremities Exam: absent: Pedal Edema - Neurological Exam Neurological Exam: absent: Alert, Awake Assessment and Plan - Assessment and Plan (Free Text) Assessment: esrd cardiomyopathy arrhythmia, post cardiac arrest vdrf, on high amount of oxygen pressor dependent continue to assess neuro exam hemodynamic support
--- NOTE | 2017-08-13 19:07 | CP.PCM.PN ---
Subjective - Date & Time of Evaluation Date of Evaluation: 08/13/17 Time of Evaluation: 19:07 - Subjective Subjective: AFEBRILE Currently on Levophed for hypotension and fentanyl for sedation. IV SOLUCORTEF 100MG IV Q 8HRLY PER [facility]DRA[facility] SPECIALIST. S/P hemodialysis today. TOLERATED IT. SEDATED. ON MULTIPLE ABX IV MERREM IV VANCOMYCIN. IV DOXYCYCLINE. IV GENTAMICIN X1 DOSE LAST NIGHT PER FUNDRAISING SPECIALIST. LABS REVIEWED; VANCO RANDOM. 14.5 OK S. LACTATE 3.1 IMPROVING. CXR 08/13 NOTED MOD. VENOUS CONGESTION PATCHY CONFLUENT INCREASED MARKINGS LEFT LUNG BASE WITH TRACE PLEURAL EFFUSION. uPPER LOBE GRANULOMATOUS . Objective - Vital Signs/Intake and Output Vital Signs (last 24 hours): Temp Pulse Resp BP Pulse Ox 98.3 F 103 H 14 121/45 L 95 08/13/17 16:00 08/13/17 19:00 08/13/17 19:00 08/13/17 19:00 08/13/17 19:00 Intake and Output: 08/13/17 08/14/17 18:59 06:59 Intake Total 1832.9 54.5 Output Total 1700 Balance 132.9 54.5 - Medications Medications: Current Medications Ascorbic Acid (Vitamin C 500 Mg Tab) 1,000 mg PO Q8H [facility] Last Admin: 08/13/17 17:44 Dose: 1,000 mg Dextrose (Dextrose 50% Inj) 0 ml IV STAT PRN; Protocol PRN Reason: Hypoglycemia Protocol Last Admin: 08/12/17 09:45 Dose: 50 ml Hydrocortisone Sodium Succinate (Solu-Cortef) 100 mg IV Q8H [facility] Last Admin: 08/13/17 11:54 Dose: 100 mg Meropenem 500 mg/ Sodium (Chloride) 100 mls @ 100 mls/hr IVPB Q12H [facility] PRN Reason: Protocol Last Admin: 08/13/17 14:28 Dose: 100 mls/hr Phenylephrine HCl 120 mg/ (Sodium Chloride) 1,012 mls @ 10.12 mls/hr IV .Q24H PRN; Protocol; 20 MCG/MIN PRN Reason: TITRATE PER MD ORDER Last Titration: 08/13/17 07:00 Dose: 0 mcg/min, 0 mls/hr Norepinephrine Bitartrate 16 (mg/ Sodium Chloride) 1,016 mls @ 15.24 mls/hr IV .Q24H PRN; Protocol; 4 MCG/MIN PRN Reason: TITRATE PER MD ORDER Last Titration: 08/13/17 17:30 Dose: 5 mcg/min, 19.05 mls/hr Doxycycline Hyclate 100 mg/ (Sodium Chloride) 100 mls @ 100 mls/hr IVPB Q12H [facility] PRN Reason: Protocol Last Admin: 08/13/17 07:58 Dose: 100 mls/hr Fentanyl Citrate 2,500 mcg/ (Sodium Chloride) 250 mls @ 11 mls/hr IV .[id number] [facility]; 2 MCG/KG/HR PRN Reason: Protocol Last Admin: 08/13/17 17:49 Dose: Not Given Vasopressin 40 units/ Dextrose 42 mls @ 2.52 mls/hr IV .[id number] [facility]; 0.04 UNITS /MIN PRN Reason: Protocol Last Admin: 08/13/17 14:21 Dose: Not Given Vancomycin HCl 500 mg/ Sodium (Chloride) 100 mls @ 100 mls/hr IVPB MWF [facility] PRN Reason: Protocol Last Admin: 08/13/17 16:30 Dose: 100 mls/hr Insulin Aspart (Novolog) 0 unit SC Q6 [facility] PRN Reason: Protocol Last Admin: 08/13/17 18:31 Dose: Not Given Ipratropium [place] (Atrovent) 0.5 mg IH RQ6 [facility] Last Admin: 08/13/17 13:45 Dose: 0.5 mg Midodrine (Proamatine) 2.5 mg PO TID [facility] Last Admin: 08/13/17 17:45 Dose: 2.5 mg Pantoprazole Sodium (Protonix Inj) 40 mg IVP DAILY [facility] Last Admin: 08/13/17 09:51 Dose: 40 mg Sodium Bicarbonate (Sodium Bicarbonate Tab) 650 mg PO Q6 [facility] Last Admin: 08/13/17 17:45 Dose: 650 mg Thiamine HCl (Vitamin B1 Inj) 200 mg IV Q8H [facility] Stop: 08/15/17 12:31 - Labs Labs: 08/13/17 06:01 08/13/17 06:02 PT 17.1 SECONDS (9.7-12.2) H 08/12/17 05:07 INR 1.5 08/12/17 05:07 APTT 42 SECONDS (21-34) H 08/12/17 05:07 - Constitutional Appears: No Acute Distress - Head Exam Head Exam: NORMAL INSPECTION - Eye Exam Eye Exam: EOMI, PERRL, Scleral icterus - ENT Exam ENT Exam: Mucous Membranes Dry - Neck Exam Neck Exam: Normal Inspection - Respiratory Exam Respiratory Exam: Decreased Breath Sounds, Rhonchi (LT BASE) - Cardiovascular Exam Cardiovascular Exam: Tachycardia, REGULAR RHYTHM, +S1, +S2 - GI/Abdominal Exam GI & Abdominal Exam: Soft, Normal Bowel Sounds - Extremities Exam Extremities Exam: absent: Calf Tenderness, Pedal Edema - Neurological Exam Neurological Exam: Altered (SEDATED) - Skin Skin Exam: Warm Assessment and Plan (1) Septic shock Status: Acute (2) Respiratory failure, acute Status: Acute (3) Pneumonia Status: Acute (4) CHF (congestive heart failure) Status: Acute (5) Abnormal liver enzymes Assessment & Plan: SHOCK LIVER. HEPATITIS PROFILE -VE A,B,C ANTIBODY. MONITOR LFTS CLOSELY Status: Acute (6) Colon cancer metastasized to liver Status: Acute (7) Diabetes mellitus Status: Chronic (8) ESRD (end stage renal disease) on dialysis Status: Chronic (9) HTN (hypertension) Status: Chronic (10) Ischemic cardiomyopathy Status: Acute - Assessment and Plan (Free Text) Plan: CONTINUE iv MERREM 500 MG EVERY 12 HOURLY.08/12/17 CONTINUE IV DOXYCYCLINE 100MG IV [id number] 08/12/17 PATIENT GOT 1 DOSE OF VANCOMYCIN 1 G ON 08/12/17. CONTINUE IV VANCOMYCIN 500MG POST HD MWF X 6 DOSE. F/U CULTURES TO ADJUST IV ABX. PT ON VASOPRESSORS /steroids AND FLUID BOLUSES . PROGNOSIS GUARDED.
--- NOTE | 2017-08-13 23:36 | CP.PCM.PN ---
Subjective - Date & Time of Evaluation Date of Evaluation: 08/13/17 Time of Evaluation: 10:20 - Subjective Subjective: Patient seen and evaluated Intubated Not in distress Objective - Vital Signs/Intake and Output Vital Signs (last 24 hours): Temp Pulse Resp BP Pulse Ox 98.6 F 113 H 16 119/41 L 97 08/13/17 20:00 08/13/17 21:00 08/13/17 21:00 08/13/17 22:00 08/13/17 21:00 Intake and Output: 08/13/17 08/14/17 18:59 06:59 Intake Total 1832.9 329.0 Output Total 1700 Balance 132.9 329.0 - Medications Medications: Current Medications Ascorbic Acid (Vitamin C 500 Mg Tab) 1,000 mg PO Q8H [facility] Last Admin: 08/13/17 17:44 Dose: 1,000 mg Dextrose (Dextrose 50% Inj) 0 ml IV STAT PRN; Protocol PRN Reason: Hypoglycemia Protocol Last Admin: 08/12/17 09:45 Dose: 50 ml Hydrocortisone Sodium Succinate (Solu-Cortef) 100 mg IV Q8H [facility] Last Admin: 08/13/17 20:23 Dose: 100 mg Meropenem 500 mg/ Sodium (Chloride) 100 mls @ 100 mls/hr IVPB Q12H [facility] PRN Reason: Protocol Last Admin: 08/13/17 21:26 Dose: 100 mls/hr Phenylephrine HCl 120 mg/ (Sodium Chloride) 1,012 mls @ 10.12 mls/hr IV .Q24H PRN; Protocol; 20 MCG/MIN PRN Reason: TITRATE PER MD ORDER Last Titration: 08/13/17 07:00 Dose: 0 mcg/min, 0 mls/hr Norepinephrine Bitartrate 16 (mg/ Sodium Chloride) 1,016 mls @ 15.24 mls/hr IV .Q24H PRN; Protocol; 4 MCG/MIN PRN Reason: TITRATE PER MD ORDER Last Titration: 08/13/17 17:30 Dose: 5 mcg/min, 19.05 mls/hr Doxycycline Hyclate 100 mg/ (Sodium Chloride) 100 mls @ 100 mls/hr IVPB Q12H [facility] PRN Reason: Protocol Last Admin: 08/13/17 20:22 Dose: 100 mls/hr Fentanyl Citrate 2,500 mcg/ (Sodium Chloride) 250 mls @ 11 mls/hr IV .[id number] [facility]; 2 MCG/KG/HR PRN Reason: Protocol Last Admin: 08/13/17 17:49 Dose: Not Given Vasopressin 40 units/ Dextrose 42 mls @ 2.52 mls/hr IV .[id number] [facility]; 0.04 UNITS /MIN PRN Reason: Protocol Last Admin: 08/13/17 14:21 Dose: Not Given Vancomycin HCl 500 mg/ Sodium (Chloride) 100 mls @ 100 mls/hr IVPB MWF [facility] PRN Reason: Protocol Last Admin: 08/13/17 16:30 Dose: 100 mls/hr Insulin Aspart (Novolog) 0 unit SC Q6 [facility] PRN Reason: Protocol Last Admin: 08/13/17 18:31 Dose: Not Given Ipratropium [place] (Atrovent) 0.5 mg IH RQ6 [facility] Last Admin: 08/13/17 20:12 Dose: 0.5 mg Midodrine (Proamatine) 2.5 mg PO TID [facility] Last Admin: 08/13/17 17:45 Dose: 2.5 mg Pantoprazole Sodium (Protonix Inj) 40 mg IVP DAILY [facility] Last Admin: 08/13/17 09:51 Dose: 40 mg Sodium Bicarbonate (Sodium Bicarbonate Tab) 650 mg PO Q6 [facility] Last Admin: 08/13/17 17:45 Dose: 650 mg Thiamine HCl (Vitamin B1 Inj) 200 mg IV Q8H [facility] Stop: 08/15/17 12:31 - Labs Labs: 08/13/17 06:01 08/13/17 06:02 PT 17.1 SECONDS (9.7-12.2) H 08/12/17 05:07 INR 1.5 08/12/17 05:07 APTT 42 SECONDS (21-34) H 08/12/17 05:07
[2017-08-14] MEDS: (Novolog) Insulin Aspart, Recombinant 100 u/ml 10 ml vial SC SCH ×4 (00:02→18:06)
[2017-08-14] MEDS: NOREPINEPHRINE IV PRN (01:07)
[2017-08-14] MEDS: SODIUM CHLORIDE 0.9% IV PRN (01:07)
[2017-08-14] MEDS: Ipratropium 0.02% Inhal Soln (0.5 mg/2.5 ml) UD IH SCH ×4 (01:27→20:45)
[2017-08-14 05:41] LABS: ARTERIAL BLOOD GAS O2 SAT 99.5 % (95-98); ARTERIAL BLOOD GAS PCO2 37 mm/Hg (35-45); ARTERIAL BLOOD GAS PH 7.25 (7.35-7.45); ARTERIAL BLOOD GAS PO2 111 mm/Hg (80-100); ARTERIAL BLOOD GAS TCO2 17.3 mmol/L (22-28)
[2017-08-14] MEDS: Vasopressin 40 UNITS in Dextrose 5% In Water 40 ML IV SCH (05:46)
[2017-08-14 06:25] LABS: BASO % 0.1 % (0.0-2.0); EOS % 0.2 % (0.0-4.0); HEMOGLOBIN 9.9 g/dL (12.0-18.0); LYMPH # 0.4 K/uL (1.0-4.3); LYMPH % 2.3 % (20.0-40.0); MEAN CELL VOLUME 94.6 fL (80.0-94.0); MEAN CORPUSCULAR HGB CONC 31.7 g/dL (33.0-37.0); MEAN PLATELET VOLUME 11.5 fL (7.2-11.7); MONO # 0.4 K/uL (0.0-0.8); MONO % 2.3 % (0.0-10.0); NEUT # 16.5 K/uL (1.8-7.0); NEUT % 95.1 % (50.0-75.0); NRBC % 1.8 % (0.0-2.0); PLATELET COUNT 112 K/uL (130-400); RBC 3.29 Mil/uL (4.40-5.90); RED CELL DISTRIBUTION WIDTH 19.5 % (11.5-14.5); WHITE BLOOD COUNT 17.4 K/uL (4.8-10.8)
[2017-08-14 06:56] LABS: ALB/GLOB RATIO 0.7 (1.0-2.1); ALBUMIN 2.2 g/dL (3.5-5.0); CALCIUM 7.1 mg/dl (8.6-10.4)
[2017-08-14] MEDS ORDERED: Lactated Ringer's 500 ML IV ONE (08:03)
[2017-08-14 08:26] LABS: ANISOCYTOSIS MODERATE; BANDS 9 % (0-2); LYMPHOCYTE 2 % (20-40); MONOCYTE 2 % (0-10); NEUTROPHIL 87 % (50-75); NUCLEATED RED BLOOD CELL 2 % (0-0); PLATELET ESTIMATE SLIGHTLY DECREASED (NORMAL); TOTAL CELLS COUNTED 100
[2017-08-14 08:27] LABS: TOXIC GRANULATION PRESENT
--- NOTE | 2017-08-14 09:08 | CP.PCM.PN ---
Subjective - Date & Time of Evaluation Date of Evaluation: 08/14/17 Time of Evaluation: 09:05 - Subjective Subjective: s/p dialysis 4/- UF 1700ml not responsive now; on vent with fio2 100%, 2 pressors has SVT- VR around 120s no family members around Objective - Vital Signs/Intake and Output Vital Signs (last 24 hours): Temp Pulse Resp BP Pulse Ox 98.0 F 120 H 14 80/38 L 98 08/14/17 08:00 08/14/17 08:00 08/14/17 08:00 08/14/17 08:00 08/14/17 08:00 Intake and Output: 08/14/17 08/14/17 06:59 18:59 Intake Total 1585.1 274.6 Balance 1585.1 274.6 - Medications Medications: Current Medications Ascorbic Acid (Vitamin C 500 Mg Tab) 1,000 mg PO Q8H [facility] Last Admin: 08/14/17 01:09 Dose: 1,000 mg Dextrose (Dextrose 50% Inj) 0 ml IV STAT PRN; Protocol PRN Reason: Hypoglycemia Protocol Last Admin: 08/12/17 09:45 Dose: 50 ml Hydrocortisone Sodium Succinate (Solu-Cortef) 100 mg IV Q8H [facility] Last Admin: 08/14/17 02:56 Dose: 100 mg Meropenem 500 mg/ Sodium (Chloride) 100 mls @ 100 mls/hr IVPB Q12H [facility] PRN Reason: Protocol Last Admin: 08/13/17 21:26 Dose: 100 mls/hr Phenylephrine HCl 120 mg/ (Sodium Chloride) 1,012 mls @ 10.12 mls/hr IV .Q24H PRN; Protocol; 20 MCG/MIN PRN Reason: TITRATE PER MD ORDER Last Titration: 08/14/17 01:00 Dose: 59.28 mcg/min, 29.99 mls/hr Norepinephrine Bitartrate 16 (mg/ Sodium Chloride) 1,016 mls @ 15.24 mls/hr IV .Q24H PRN; Protocol; 4 MCG/MIN PRN Reason: TITRATE PER MD ORDER Last Admin: 08/14/17 01:07 Dose: 14.77 mcg/min, 56.3 mls/hr Doxycycline Hyclate 100 mg/ (Sodium Chloride) 100 mls @ 100 mls/hr IVPB Q12H [facility] PRN Reason: Protocol Last Admin: 08/14/17 08:43 Dose: 100 mls/hr Fentanyl Citrate 2,500 mcg/ (Sodium Chloride) 250 mls @ 11 mls/hr IV .[id number] [facility]; 2 MCG/KG/HR PRN Reason: Protocol Last Titration: 08/14/17 01:05 Dose: 2 mcg/kg/hr, 11 mls/hr Vasopressin 40 units/ Dextrose 42 mls @ 2.52 mls/hr IV .[id number] [facility]; 0.04 UNITS /MIN PRN Reason: Protocol Last Admin: 08/14/17 05:46 Dose: Not Given Vancomycin HCl 500 mg/ Sodium (Chloride) 100 mls @ 100 mls/hr IVPB MWF [facility] PRN Reason: Protocol Last Admin: 08/13/17 16:30 Dose: 100 mls/hr Insulin Aspart (Novolog) 0 unit SC Q6 [facility] PRN Reason: Protocol Last Admin: 08/14/17 07:34 Dose: 2 unit Ipratropium [place] (Atrovent) 0.5 mg IH RQ6 [facility] Last Admin: 08/14/17 07:24 Dose: 0.5 mg Midodrine (Proamatine) 5 mg PO TID [facility] Pantoprazole Sodium (Protonix Inj) 40 mg IVP DAILY [facility] Last Admin: 08/13/17 09:51 Dose: 40 mg Sodium Bicarbonate (Sodium Bicarbonate Tab) 650 mg PO Q6 [facility] Last Admin: 08/14/17 05:46 Dose: 650 mg Thiamine HCl (Vitamin B1 Inj) 200 mg IV Q8H [facility] Stop: 08/15/17 12:31 - Labs Labs: 08/14/17 06:15 08/14/17 06:15 PT 17.1 SECONDS (9.7-12.2) H 08/12/17 05:07 INR 1.5 08/12/17 05:07 APTT 42 SECONDS (21-34) H 08/12/17 05:07 - Constitutional Appears: In Acute Distress, Chronically Ill - Head Exam Head Exam: ATRAUMATIC, NORMAL INSPECTION - Neck Exam Neck Exam: Normal Inspection. absent: Tenderness - Respiratory Exam Respiratory Exam: Rhonchi, Respiratory Distress - Cardiovascular Exam Cardiovascular Exam: Tachycardia, Irregular Rhythm - Extremities Exam Extremities Exam: Normal Inspection. absent: Tenderness - Neurological Exam Neurological Exam: Altered - Skin Skin Exam: Dry, Warm Assessment and Plan (1) Prostate cancer metastatic to bone Status: Acute (2) Type 2 diabetes mellitus with diabetic nephropathy Status: Acute (3) AV graft thrombosis Status: Acute (4) Atrial fibrillation Status: Acute (5) CHF (congestive heart failure) Status: Acute (6) COPD (chronic obstructive pulmonary disease) with emphysema Status: Chronic (7) ESRD (end stage renal disease) on dialysis Status: Chronic - Assessment and Plan (Free Text) Assessment: poor px respiratory failure, SVT, unstable dialysis sessions Plan: supportive care dialysis scheduled for AM unable to reach family- poor prognosis
[2017-08-14] MEDS: Meropenem 500 MG in Sodium Chloride 0.9% 100 ML IVPB SCH ×2 (10:12→22:26)
--- NOTE | 2017-08-14 10:27 | RAD ---
HISTORY: ETT COMPARISON: Portable chest 08/13/2017 FINDINGS: A random grid of electronic device including wires obscures evaluation significantly once again. Endotracheal and nasogastric tubes do not appear simply changed in position as well as right central venous dialysis catheter. Wall stents are reiterated at the right axillary/subclavian region and left axilla. LUNGS: Mild pulmonary venous congestion is reiterated with slight increased reticular change which may indicate interval worsening of CHF. Clinically correlate. Cardiomediastinal silhouette appears stable. Limited biapical pleural thickening is again evident with interval retrocardiac likely atelectasis present. Minimal left pleural effusion again questioned. None is seen the right. No pneumothorax bilaterally. PLEURA: As above. CARDIOVASCULAR: As above. OSSEOUS STRUCTURES: No significant abnormalities. VISUALIZED UPPER ABDOMEN: Normal. OTHER FINDINGS: None. IMPRESSION: Borderline worsening of CHF with interval left retrocardiac atelectasis favored over infiltrate. Examination otherwise stable. Interpretation is markedly limited due to extensive electronic devices including wires overlying the chest.
--- NOTE | 2017-08-14 10:29 | CP.CCUPN ---
<Sonia Michaud - Last Filed: 08/14/17 11:35> CCU Subjective - Physician Review Subjective (Free Text): 08/14/17 10:28 Patient seen and examined at bedside. Per nursing, no acute events overnight. Patient remains intubated and sedated. Tolerated HD yesterday. ROS not obtained. CCU Objective - Vital Signs / Intake & Output Vital Signs (Last 4 hours): Vital Signs Temp Pulse Resp BP BP Pulse Ox 08/14/17 09:00 126 H 18 82/40 L 100 08/14/17 08:50 119 H 19 149/62 98 08/14/17 08:30 116 H 24 148/64 100 08/14/17 08:01 115 H 18 123/57 L 92 L 08/14/17 08:00 98.0 F 133 H 17 123/57 L 80/38 L 99 08/14/17 07:59 131 H 15 136/55 L 98 08/14/17 07:50 123 H 16 143/56 L 94 L 08/14/17 07:30 109 H 15 98 08/14/17 07:15 115 H 17 141/60 97 08/14/17 07:00 135 H 17 138/76 100 08/14/17 06:30 116 H 17 97 Intake and Output (Last 8hrs): Intake & Output 08/13/17 08/14/17 08/14/17 22:59 06:59 14:59 Intake Total 810.5 1267.1 411.9 Output Total 1700 Balance -889.5 1267.1 411.9 Weight 62.823 kg Intake: IV 90 326 Intake, IV Amount 330.5 651.1 291.9 Right Distal Port 150 90 Right Distal Port Femoral 186.5 424.1 168.9 Right Medial Port Femoral 100 Right Proximal Port 44.0 77.0 33 Femoral Oral 170 Tube Feeding 220 290 120 Output: Drainage 1700 HD Fluid Removal 1700 Other: # Voids Urine, Voided 0 # Bowel Movements 0 - Physical Exam Head: Positive for: Atraumatic, Normocephalic Pupils: Positive for: PERRL Extroacular Muscles: Positive for: EOMI Conjunctiva: Positive for: Normal Mouth: Positive for: Dry, Other (ETT ) Nose (External): Positive for: Atraumatic Neck: Negative for: JVD Respiratory/Chest: Positive for: Decreased Breath Sounds, Rales Cardiovascular: Positive for: Irregular Rhythm, Tachycardic Abdomen: Positive for: Normal Bowel Sounds. Negative for: Distention Upper Extremity: Positive for: Normal Inspection Lower Extremity: Positive for: Normal Inspection, Other (+femoral line ) Skin: Positive for: Warm, Dry Psychiatric: Negative for: Alert, Oriented x 3 - Medications Active Medications: Active Medications Generic Name Dose Route Start Last Admin Trade Name Freq PRN Reason Stop Dose Admin Ascorbic Acid 1,000 mg 08/13/17 10:00 08/14/17 09:12 Vitamin C 500 Mg Tab PO 1,000 mg Q8H CORINA Administration Dextrose 0 ml 08/11/17 17:18 08/12/17 09:45 Dextrose 50% Inj IV 50 ml STAT PRN Administration Hypoglycemia Protocol Protocol Hydrocortisone Sodium Succinate 100 mg 08/13/17 03:30 08/14/17 02:56 Solu-Cortef IV 100 mg Q8H CORINA Administration Meropenem 500 mg/ Sodium 100 mls @ 100 mls/hr 08/12/17 22:00 08/14/17 10:12 Chloride IVPB 100 mls/hr Q12H CORINA Administration Protocol Phenylephrine HCl 120 mg/ 1,012 mls @ 10.12 mls/hr 08/12/17 18:30 08/14/17 01 :00 Sodium Chloride IV 59.28 mcg/min .Q24H PRN 29.99 mls/hr TITRATE PER MD ORDER Titration Protocol 20 MCG/MIN Norepinephrine Bitartrate 16 1,016 mls @ 15.24 mls/hr 08/12/17 18:30 01:07 mg/ Sodium Chloride IV 14.77 mcg/min .Q24H PRN 56.3 mls/hr TITRATE PER MD ORDER Administration Protocol 4 MCG/MIN Doxycycline Hyclate 100 mg/ 100 mls @ 100 mls/hr 08/12/17 20:00 08/14/17 08: 43 Sodium Chloride IVPB 100 mls/hr Q12H CORINA Administration Protocol Fentanyl Citrate 2,500 mcg/ 250 mls @ 11 mls/hr 08/12/17 19:45 08/14/17 01:05 Sodium Chloride IV 2 mcg/kg/hr .[id number] CORINA 11 mls/hr Protocol Titration 2 MCG/KG/HR Vasopressin 40 units/ Dextrose 42 mls @ 2.52 mls/hr 08/12/17 21:15 08/14/17 05:46 IV Not Given .[id number] CORINA Protocol 0.04 UNITS/MIN Vancomycin HCl 500 mg/ Sodium 100 mls @ 100 mls/hr 08/13/17 17:00 08/13/17 16 :30 Chloride IVPB 100 mls/hr MWF CORINA Administration Protocol Insulin Aspart 0 unit 08/12/17 19:30 08/14/17 07:34 Novolog SC 2 unit Q6 CORINA Administration Protocol Ipratropium [place] 0.5 mg 08/12/17 19:45 08/14/17 07:24 Atrovent IH 0.5 mg RQ6 CORINA Administration Midodrine 5 mg 08/14/17 10:00 08/14/17 09:12 Proamatine PO 5 mg TID CORINA Administration Pantoprazole Sodium 40 mg 08/12/17 10:00 08/14/17 09:11 Protonix Inj IVP 40 mg DAILY CORINA Administration Sodium Bicarbonate 650 mg 08/13/17 00:00 08/14/17 05:46 Sodium Bicarbonate Tab PO 650 mg Q6 CORINA Administration - Patient Studies Lab Studies: Microbiology Studies 08/11/17 19:00 Blood Culture - Preliminary Blood-Venous NO GROWTH AFTER 48 HOURS 08/12/17 19:59 Gram Stain - Final Trachasp Lab Studies 08/14/17 08/14/17 08/14/17 Range/Units 08:37 06:15 06:15 WBC 17.4 H D (4.8-10.8) K/uL RBC 3.29 L (4.40-5.90) Mil/uL Hgb 9.9 L (12.0-18.0) g/dL Hct 31.1 L (35.0-51.0) % MCV 94.6 H (80.0-94.0) fL MCH 30.0 (27.0-31.0) pg MCHC 31.7 L (33.0-37.0) g/dL RDW 19.5 H (11.5-14.5) % Plt Count 112 L D (130-400) K/uL MPV 11.5 (7.2-11.7) fL Neut % (Auto) 95.1 H (50.0-75.0) % Lymph % (Auto) 2.3 L (20.0-40.0) % [place] % (Auto) 2.3 (0.0-10.0) % Eos % (Auto) 0.2 (0.0-4.0) % Baso % (Auto) 0.1 (0.0-2.0) % Neut # (Auto) 16.5 H (1.8-7.0) K/uL Lymph # (Auto) 0.4 L (1.0-4.3) K/uL [place] # (Auto) 0.4 (0.0-0.8) K/uL Eos # (Auto) 0.0 (0.0-0.7) K/uL Baso # (Auto) 0.0 (0.0-0.2) K/uL Neutrophils % (Manual) 87 H (50-75) % Band Neutrophils % 9 H (0-2) % Lymphocytes % (Manual) 2 L (20-40) % Monocytes % (Manual) 2 (0-10) % Nucleated RBC % 2 H (0-0) % Toxic Granulation Present Platelet Estimate Slightly decreased L (NORMAL) Anisocytosis (manual) Moderate Puncture Site pCO2 (35-45) mm/Hg pO2 (80-100) mm/Hg HCO3 (21-28) mmol/L ABG pH (7.35-7.45) ABG Total CO2 (22-28) mmol/L ABG O2 Saturation (95-98) % ABG Base Excess (-2.0-3.0) mmol/L ABG Hemoglobin (11.7-17.4) g/dL ABG Carboxyhemoglobin (0.5-1.5) % POC ABG HHb (Measured) (0.0-5.0) % ABG Methemoglobin (0.0-3.0) % [place] Test A-a O2 Difference mm/Hg Respiratory Index Hgb O2 Saturation (95.0-98.0) % Vent Mode Mechanical Rate FiO2 % Tidal Volume PEEP Sodium 138 (132-148) mmol/L Potassium 4.7 (3.6-5.2) mmol/L Chloride 104 (98-107) mmol/L Carbon Dioxide 15 L (22-30) mmol/L Anion Gap 24 H (10-20) BUN 38 H (9-20) mg/dL Creatinine 3.2 H (0.8-1.5) mg/dL Est GFR ( Amer) 23 Est GFR (Non-Af Amer) 19 POC Glucose (mg/dL) (65-110) mg/dL Random Glucose 176 H (75-110) mg/dL Lactic Acid 8.0 H* (0.7-2.1) mmol/L Calcium 7.1 L (8.6-10.4) mg/dl Phosphorus 6.7 H (2.5-4.5) mg/dL Magnesium 1.9 (1.6-2.3) mg/dL Total Bilirubin 5.8 H (0.2-1.3) mg/dL AST 1183 H (17-59) U/L ALT 515 H (21-72) U/L Alkaline Phosphatase 232 H D (38-126) U/L Total Protein 5.1 L (6.3-8.3) g/dL Albumin 2.2 L (3.5-5.0) g/dL Globulin 2.9 (2.2-3.9) gm/dL Albumin/Globulin Ratio 0.7 L (1.0-2.1) Ur L.pneumophila Ag 08/14/17 08/14/17 08/13/17 Range/Units 05:56 05:38 23:25 WBC (4.8-10.8) K/uL RBC (4.40-5.90) Mil/uL Hgb (12.0-18.0) g/dL Hct (35.0-51.0) % MCV (80.0-94.0) fL MCH (27.0-31.0) pg MCHC (33.0-37.0) g/dL RDW (11.5-14.5) % Plt Count (130-400) K/uL MPV (7.2-11.7) fL Neut % (Auto) (50.0-75.0) % Lymph % (Auto) (20.0-40.0) % [place] % (Auto) (0.0-10.0) % Eos % (Auto) (0.0-4.0) % Baso % (Auto) (0.0-2.0) % Neut # (Auto) (1.8-7.0) K/uL Lymph # (Auto) (1.0-4.3) K/uL [place] # (Auto) (0.0-0.8) K/uL Eos # (Auto) (0.0-0.7) K/uL Baso # (Auto) (0.0-0.2) K/uL Neutrophils % (Manual) (50-75) % Band Neutrophils % (0-2) % Lymphocytes % (Manual) (20-40) % Monocytes % (Manual) (0-10) % Nucleated RBC % (0-0) % Toxic Granulation Platelet Estimate (NORMAL) Anisocytosis (manual) Puncture Site A-line pCO2 37 (35-45) mm/Hg pO2 111 H (80-100) mm/Hg HCO3 17.0 L (21-28) mmol/L ABG pH 7.25 L (7.35-7.45) ABG Total CO2 17.3 L (22-28) mmol/L ABG O2 Saturation 99.5 H (95-98) % ABG Base Excess -10.2 L (-2.0-3.0) mmol/L ABG Hemoglobin 10.0 L (11.7-17.4) g/dL ABG Carboxyhemoglobin 2.8 H (0.5-1.5) % POC ABG HHb (Measured) 0.5 (0.0-5.0) % ABG Methemoglobin 0.8 (0.0-3.0) % [place] Test Na A-a O2 Difference 556.0 mm/Hg Respiratory Index 5.0 Hgb O2 Saturation 95.9 (95.0-98.0) % Vent Mode Prvc Mechanical Rate 22 FiO2 100.0 % Tidal Volume 500 PEEP 5 Sodium (132-148) mmol/L Potassium (3.6-5.2) mmol/L Chloride (98-107) mmol/L Carbon Dioxide (22-30) mmol/L Anion Gap (10-20) BUN (9-20) mg/dL Creatinine (0.8-1.5) mg/dL Est GFR ( Amer) Est GFR (Non-Af Amer) POC Glucose (mg/dL) 205 H 178 H (65-110) mg/dL Random Glucose (75-110) mg/dL Lactic Acid (0.7-2.1) mmol/L Calcium (8.6-10.4) mg/dl Phosphorus (2.5-4.5) mg/dL Magnesium (1.6-2.3) mg/dL Total Bilirubin (0.2-1.3) mg/dL AST (17-59) U/L ALT (21-72) U/L Alkaline Phosphatase (38-126) U/L Total Protein (6.3-8.3) g/dL Albumin (3.5-5.0) g/dL Globulin (2.2-3.9) gm/dL Albumin/Globulin Ratio (1.0-2.1) Ur L.pneumophila Ag 08/13/17 08/13/17 08/12/17 Range/Units 18:03 11:47 15:32 WBC (4.8-10.8) K/uL RBC (4.40-5.90) Mil/uL Hgb (12.0-18.0) g/dL Hct (35.0-51.0) % MCV (80.0-94.0) fL MCH (27.0-31.0) pg MCHC (33.0-37.0) g/dL RDW (11.5-14.5) % Plt Count (130-400) K/uL MPV (7.2-11.7) fL Neut % (Auto) (50.0-75.0) % Lymph % (Auto) (20.0-40.0) % [place] % (Auto) (0.0-10.0) % Eos % (Auto) (0.0-4.0) % Baso % (Auto) (0.0-2.0) % Neut # (Auto) (1.8-7.0) K/uL Lymph # (Auto) (1.0-4.3) K/uL [place] # (Auto) (0.0-0.8) K/uL Eos # (Auto) (0.0-0.7) K/uL Baso # (Auto) (0.0-0.2) K/uL Neutrophils % (Manual) (50-75) % Band Neutrophils % (0-2) % Lymphocytes % (Manual) (20-40) % Monocytes % (Manual) (0-10) % Nucleated RBC % (0-0) % Toxic Granulation Platelet Estimate (NORMAL) Anisocytosis (manual) Puncture Site pCO2 (35-45) mm/Hg pO2 (80-100) mm/Hg HCO3 (21-28) mmol/L ABG pH (7.35-7.45) ABG Total CO2 (22-28) mmol/L ABG O2 Saturation (95-98) % ABG Base Excess (-2.0-3.0) mmol/L ABG Hemoglobin (11.7-17.4) g/dL ABG Carboxyhemoglobin (0.5-1.5) % POC ABG HHb (Measured) (0.0-5.0) % ABG Methemoglobin (0.0-3.0) % [place]co Test A-a O2 Difference mm/Hg Respiratory Index Hgb O2 Saturation (95.0-98.0) % Vent Mode Mechanical Rate FiO2 % Tidal Volume PEEP Sodium (132-148) mmol/L Potassium (3.6-5.2) mmol/L Chloride (98-107) mmol/L Carbon Dioxide (22-30) mmol/L Anion Gap (10-20) BUN (9-20) mg/dL Creatinine (0.8-1.5) mg/dL Est GFR ( Amer) Est GFR (Non-Af Amer) POC Glucose (mg/dL) 125 H 176 H (65-110) mg/dL Random Glucose (75-110) mg/dL Lactic Acid (0.7-2.1) mmol/L Calcium (8.6-10.4) mg/dl Phosphorus (2.5-4.5) mg/dL Magnesium (1.6-2.3) mg/dL Total Bilirubin (0.2-1.3) mg/dL AST (17-59) U/L ALT (21-72) U/L Alkaline Phosphatase (38-126) U/L Total Protein (6.3-8.3) g/dL Albumin (3.5-5.0) g/dL Globulin (2.2-3.9) gm/dL Albumin/Globulin Ratio (1.0-2.1) Ur L.pneumophila Ag Cancelled Laboratory Results - last 24 hr 08/12/17 08/13/17 08/13/17 15:32 11:47 18:03 WBC RBC Hgb Hct MCV MCH MCHC RDW Plt Count MPV Neut % (Auto) Lymph % (Auto) [place] % (Auto) Eos % (Auto) Baso % (Auto) Neut # (Auto) Lymph # (Auto) [place] # (Auto) Eos # (Auto) Baso # (Auto) Neutrophils % (Manual) Band Neutrophils % Lymphocytes % (Manual) Monocytes % (Manual) Nucleated RBC % Toxic Granulation Platelet Estimate Anisocytosis (manual) Puncture Site pCO2 pO2 HCO3 ABG pH ABG Total CO2 ABG O2 Saturation ABG Base Excess ABG Hemoglobin ABG Carboxyhemoglobin POC ABG HHb (Measured) ABG Methemoglobin [place] Test A-a O2 Difference Respiratory Index Hgb O2 Saturation Vent Mode Mechanical Rate FiO2 Tidal Volume PEEP Sodium Potassium Chloride Carbon Dioxide Anion Gap BUN Creatinine Est GFR ( Amer) Est GFR (Non-Af Amer) POC Glucose (mg/dL) 176 H 125 H Random Glucose Lactic Acid Calcium Phosphorus Magnesium Total Bilirubin AST ALT Alkaline Phosphatase Total Protein Albumin Globulin Albumin/Globulin Ratio Ur L.pneumophila Ag Cancelled 08/13/17 08/14/17 08/14/17 23:25 05:38 05:56 WBC RBC Hgb Hct MCV MCH MCHC RDW Plt Count MPV Neut % (Auto) Lymph % (Auto) [place] % (Auto) Eos % (Auto) Baso % (Auto) Neut # (Auto) Lymph # (Auto) [place] # (Auto) Eos # (Auto) Baso # (Auto) Neutrophils % (Manual) Band Neutrophils % Lymphocytes % (Manual) Monocytes % (Manual) Nucleated RBC % Toxic Granulation Platelet Estimate Anisocytosis (manual) Puncture Site A-line pCO2 37 pO2 111 H HCO3 17.0 L ABG pH 7.25 L ABG Total CO2 17.3 L ABG O2 Saturation 99.5 H ABG Base Excess -10.2 L ABG Hemoglobin 10.0 L ABG Carboxyhemoglobin 2.8 H POC ABG HHb (Measured) 0.5 ABG Methemoglobin 0.8 [place] Test Na A-a O2 Difference 556.0 Respiratory Index 5.0 Hgb O2 Saturation 95.9 Vent Mode Prvc Mechanical Rate 22 FiO2 100.0 Tidal Volume 500 PEEP 5 Sodium Potassium Chloride Carbon Dioxide Anion Gap BUN Creatinine Est GFR ( Amer) Est GFR (Non-Af Amer) POC Glucose (mg/dL) 178 H 205 H Random Glucose Lactic Acid Calcium Phosphorus Magnesium Total Bilirubin AST ALT Alkaline Phosphatase Total Protein Albumin Globulin Albumin/Globulin Ratio Ur L.pneumophila Ag 08/14/17 08/14/17 08/14/17 06:15 06:15 08:37 WBC 17.4 H D RBC 3.29 L Hgb 9.9 L Hct 31.1 L MCV 94.6 H MCH 30.0 MCHC 31.7 L RDW 19.5 H Plt Count 112 L D MPV 11.5 Neut % (Auto) 95.1 H Lymph % (Auto) 2.3 L [place] % (Auto) 2.3 Eos % (Auto) 0.2 Baso % (Auto) 0.1 Neut # (Auto) 16.5 H Lymph # (Auto) 0.4 L [place] # (Auto) 0.4 Eos # (Auto) 0.0 Baso # (Auto) 0.0 Neutrophils % (Manual) 87 H Band Neutrophils % 9 H Lymphocytes % (Manual) 2 L Monocytes % (Manual) 2 Nucleated RBC % 2 H Toxic Granulation Present Platelet Estimate Slightly decreased L Anisocytosis (manual) Moderate Puncture Site pCO2 pO2 HCO3 ABG pH ABG Total CO2 ABG O2 Saturation ABG Base Excess ABG Hemoglobin ABG Carboxyhemoglobin POC ABG HHb (Measured) ABG Methemoglobin [place] Test A-a O2 Difference Respiratory Index Hgb O2 Saturation Vent Mode Mechanical Rate FiO2 Tidal Volume PEEP Sodium 138 Potassium 4.7 Chloride 104 Carbon Dioxide 15 L Anion Gap 24 H BUN 38 H Creatinine 3.2 H Est GFR ( Amer) 23 Est GFR (Non-Af Amer) 19 POC Glucose (mg/dL) Random Glucose 176 H Lactic Acid 8.0 H* Calcium 7.1 L Phosphorus 6.7 H Magnesium 1.9 Total Bilirubin 5.8 H AST 1183 H ALT 515 H Alkaline Phosphatase 232 H D Total Protein 5.1 L Albumin 2.2 L Globulin 2.9 Albumin/Globulin Ratio 0.7 L Ur L.pneumophila Ag Fingerstick Blood Sugar Results: 205 Assessment/Plan - Assessment and Plan (Free Text) Assessment: Patient is a 76 year old male with past medical history of ESRD on HD, CAD s/p CABG, Ischemic cardiomyopathy on Life Vest, Afib not on AC 2/2 history of GI bleed, Diabetes Mellitus, COPD presented to the Hospital for shortness of breath and weakness. Found to be hypotensive s/p permacath placement. Neurology: -Intubated, on fentanyl drip -History of prostate CA with metastasis -Palliative care on consult to establish goals of care Cardiology: -Patient with ischemic cardiomyopathy on life vest -Last echo 06/2017 showed LVEF 30% -Patient is Well known to Dr Potts -S/P Code blue with ROSC, now intubated -Patient with hypotension, on Levophed drip, phenylepherine -Increase Midodrine 5mg TID -History of atrial fibrillation, not on anticoagulation 2/2 GI bleed -On Cardizem and Toprol XL at home, will hold these medications at this time -Plan to change femoral line to IJ, consent obtained Respiratory: -Intubated, on Fentanyl -Atrovent Q6H -Solu-cortef 100mg IV Q8H -pH 7.25, PCO2 37, PO2 111, HCO3 17 -CXR 08/13: Biapical pleural thickening with upper lobe granulomatous changes. Mild to moderate venous congestion. Pathcy confluent increased markings at the left lung base with trace left pleural effusion. Tortuous aorta. Mild cardiomegaly -CXR 08/11: Mod. venous congestion. Small left pleural effusion. Bibasilar airspace opacities. Biapical pleural thickening with upper lobe granulomatous changes -Patient on sodium bicarb 650mg PO Q6H -Mycoplasma negative -F/U sputum culture GI: -Tube feeds: Continue Nepro -Protonix 40mg IVP -AST/ALT improving 1183/515, likely 2/2 shock liver -Will continue to monitor at this time Renal: -S/P right permacath placement (08/11/17), AV fistula is malfunctioning -Dr Chiu on consult for declot, will hold off as patient is unstable at this time -Hemodialysis schedule M,W,F -Tolerated hemodialysis yesterday -Sodium bicarb 1,300mg Q6H -Nephro on consult, help appreciated Endocrine: -History of Diabetes Type 2 on insulin at home -Serum glucose on admission 31, Hypoglycemic -Accuchecks q6H -Hypoglycemia protocol Infectious Disease: -Sepsis, source unknown at this time -Procalcitonin 6.7 -WBC 17.4, Bandemia 9, lactate 8.0 -Code sepsis called yesterday: lactate trending down -Antibiotics: Merrem 500mg Q12H, Doxycycline 100mg IV Q12H, Vancomycin 500mg MWF -Urine cultures, blood cultures pending GI/DVT ppx: -Protonix 40mg IV daily, SCDs -DVT ppx containdicated, hx of GI bleed Plan discussed with Dr Callahan <Mookie Callahan - Last Filed: 08/14/17 17:24> CCU Subjective - Physician Review Critical Care Time Spent (in minutes): 40 CCU Objective - Vital Signs / Intake & Output Vital Signs (Last 4 hours): Vital Signs Temp Pulse Resp BP Pulse Ox 08/14/17 16:00 99.4 F 114 H 16 98 08/14/17 15:30 103 H 11 L 99 08/14/17 15:21 102 H 21 98/59 L 98 08/14/17 15:15 112 H 21 96/55 L 98 08/14/17 15:02 106 H 15 153/62 H 98 08/14/17 15:00 102 H 13 100 08/14/17 14:42 112 H 19 159/63 H 99 08/14/17 14:30 114 H 13 100 08/14/17 14:16 110 H 16 157/79 H 100 08/14/17 14:05 115 H 18 150/77 100 08/14/17 14:00 112 H 16 100 08/14/17 13:44 120 H 23 109/58 L 100 08/14/17 13:30 116 H 13 98 Intake and Output (Last 8hrs): Intake & Output 08/14/17 08/14/17 08/14/17 06:59 14:59 22:59 Intake Total 1267.1 2191.1 183.0 Balance 1267.1 2191.1 183.0 Weight 138 lb 8 oz Intake: IV 326 1120.3 Intake, IV Amount 651.1 750.8 103.0 Right Distal Port 150 212.4 4.8 Right Distal Port Femoral 424.1 450.4 76.2 Right Proximal Port 77.0 88 22 Femoral Tube Feeding 290 320 80 - Medications Active Medications: Active Medications Generic Name Dose Route Start Last Admin Trade Name Freq PRN Reason Stop Dose Admin Ascorbic Acid 1,000 mg 08/13/17 10:00 08/14/17 09:12 Vitamin C 500 Mg Tab PO 1,000 mg Q8H CORINA Administration Dextrose 0 ml 08/11/17 17:18 08/12/17 09:45 Dextrose 50% Inj IV 50 ml STAT PRN Administration Hypoglycemia Protocol Protocol Hydrocortisone Sodium Succinate 100 mg 08/13/17 03:30 08/14/17 11:01 Solu-Cortef IV 100 mg Q8H CORINA Administration Meropenem 500 mg/ Sodium 100 mls @ 100 mls/hr 08/12/17 22:00 08/14/17 10:12 Chloride IVPB 100 mls/hr Q12H CORINA Administration Protocol Phenylephrine HCl 120 mg/ 1,012 mls @ 10.12 mls/hr 08/12/17 18:30 08/14/17 14 :52 Sodium Chloride IV 0 mcg/min .Q24H PRN 0 mls/hr TITRATE PER MD ORDER Titration Protocol 20 MCG/MIN Norepinephrine Bitartrate 16 1,016 mls @ 15.24 mls/hr 08/12/17 18:30 14:30 mg/ Sodium Chloride IV 10 mcg/min .Q24H PRN 38.1 mls/hr TITRATE PER MD ORDER Titration Protocol 4 MCG/MIN Doxycycline Hyclate 100 mg/ 100 mls @ 100 mls/hr 08/12/17 20:00 08/14/17 08: 43 Sodium Chloride IVPB 100 mls/hr Q12H CORINA Administration Protocol Fentanyl Citrate 2,500 mcg/ 250 mls @ 11 mls/hr 08/12/17 19:45 08/14/17 01:05 Sodium Chloride IV 2 mcg/kg/hr .[id number] CORINA 11 mls/hr Protocol Titration 2 MCG/KG/HR Vancomycin HCl 500 mg/ Sodium 100 mls @ 100 mls/hr 08/13/17 17:00 08/13/17 16 :30 Chloride IVPB 100 mls/hr [facility] CORINA Administration Protocol Vasopressin 40 units/ Sodium 42 mls @ 2.52 mls/hr 08/14/17 13:15 08/14/17 14: 00 Chloride IV 0.04 units/min .[id number] CORINA 2.52 mls/hr Protocol Titration 0.04 UNITS/MIN Insulin Aspart 0 unit 08/12/17 19:30 08/14/17 11:26 Novolog SC 2 unit Q6 CORINA Administration Protocol Ipratropium [place] 0.5 mg 08/12/17 19:45 08/14/17 13:35 Atrovent IH 0.5 mg RQ6 CORINA Administration Midodrine 5 mg 08/14/17 10:00 08/14/17 14:12 Proamatine PO 5 mg TID CORINA Administration Pantoprazole Sodium 40 mg 08/12/17 10:00 08/14/17 09:11 Protonix Inj IVP 40 mg DAILY CORINA Administration Sodium Bicarbonate 1,300 mg 08/14/17 10:50 08/14/17 11:00 Sodium Bicarbonate Tab PO 1,300 mg Q6 CORINA Administration - Patient Studies Lab Studies: Microbiology Studies 08/14/17 11:00 Gram Stain - Final Trachasp 08/11/17 19:00 Blood Culture - Preliminary Blood-Venous NO GROWTH AFTER 48 HOURS 08/12/17 19:59 [facility] 08/14/17 08/14/17 08/14/17 Range/Units 16:46 11:22 08:37 WBC (4.8-10.8) K/uL RBC (4.40-5.90) Mil/uL Hgb (12.0-18.0) g/dL Hct (35.0-51.0) % MCV (80.0-94.0) fL MCH (27.0-31.0) pg MCHC (33.0-37.0) g/dL RDW (11.5-14.5) % Plt Count (130-400) K/uL MPV (7.2-11.7) fL Neut % (Auto) (50.0-75.0) % Lymph % (Auto) (20.0-40.0) % [place] % (Auto) (0.0-10.0) % Eos % (Auto) (0.0-4.0) % Baso % (Auto) (0.0-2.0) % Neut # (Auto) (1.8-7.0) K/uL Lymph # (Auto) (1.0-4.3) K/uL [place] # (Auto) (0.0-0.8) K/uL Eos # (Auto) (0.0-0.7) K/uL Baso # (Auto) (0.0-0.2) K/uL Neutrophils % (Manual) (50-75) % Band Neutrophils % (0-2) % Lymphocytes % (Manual) (20-40) % Monocytes % (Manual) (0-10) % Nucleated RBC % (0-0) % Toxic Granulation Platelet Estimate (NORMAL) Anisocytosis (manual) Puncture Site Venous pCO2 24 L (35-45) mm/Hg pO2 79 L (80-100) mm/Hg HCO3 16.0 L (21-28) mmol/L ABG pH 7.33 L (7.35-7.45) ABG Total CO2 13.4 L (22-28) mmol/L ABG O2 Saturation 98.8 H (95-98) % ABG Base Excess -11.3 L (-2.0-3.0) mmol/L ABG Hemoglobin (11.7-17.4) g/dL ABG Carboxyhemoglobin (0.5-1.5) % POC ABG HHb (Measured) (0.0-5.0) % ABG Methemoglobin (0.0-3.0) % [place]co Test Na ABG Potassium 2.6 L (3.6-5.2) mmol/L A-a O2 Difference 604.0 mm/Hg Respiratory Index 7.6 Hgb O2 Saturation (95.0-98.0) % Glucose 139 H (75-110) mg/dl Lactate 2.9 H (0.7-2.1) mmol/L Vent Mode Simv/pc Mechanical Rate 22 FiO2 100.0 % Tidal Volume PEEP 5 Sodium 143.0 (132-148) mmol/L Potassium (3.6-5.2) mmol/L Chloride 116.0 H (98-107) mmol/L Carbon Dioxide (22-30) mmol/L Anion Gap (10-20) BUN (9-20) mg/dL Creatinine (0.8-1.5) mg/dL Est GFR ( Amer) Est GFR (Non-Af Amer) POC Glucose (mg/dL) 210 H (65-110) mg/dL Random Glucose (75-110) mg/dL Lactic Acid 8.0 H* (0.7-2.1) mmol/L Calcium (8.6-10.4) mg/dl Phosphorus (2.5-4.5) mg/dL Magnesium (1.6-2.3) mg/dL Total Bilirubin (0.2-1.3) mg/dL AST (17-59) U/L ALT (21-72) U/L Alkaline Phosphatase (38-126) U/L Total Protein (6.3-8.3) g/dL Albumin (3.5-5.0) g/dL Globulin (2.2-3.9) gm/dL Albumin/Globulin Ratio (1.0-2.1) Arterial Blood Potassium 2.6 L (3.6-5.2) mmol/L Ur L.pneumophila Ag 08/14/17 08/14/17 08/14/17 Range/Units 06:15 06:15 05:56 WBC 17.4 H D (4.8-10.8) K/uL RBC 3.29 L (4.40-5.90) Mil/uL Hgb 9.9 L (12.0-18.0) g/dL Hct 31.1 L (35.0-51.0) % MCV 94.6 H (80.0-94.0) fL MCH 30.0 (27.0-31.0) pg MCHC 31.7 L (33.0-37.0) g/dL RDW 19.5 H (11.5-14.5) % Plt Count 112 L D (130-400) K/uL MPV 11.5 (7.2-11.7) fL Neut % (Auto) 95.1 H (50.0-75.0) % Lymph % (Auto) 2.3 L (20.0-40.0) % [place] % (Auto) 2.3 (0.0-10.0) % Eos % (Auto) 0.2 (0.0-4.0) % Baso % (Auto) 0.1 (0.0-2.0) % Neut # (Auto) 16.5 H (1.8-7.0) K/uL Lymph # (Auto) 0.4 L (1.0-4.3) K/uL [place] # (Auto) 0.4 (0.0-0.8) K/uL Eos # (Auto) 0.0 (0.0-0.7) K/uL Baso # (Auto) 0.0 (0.0-0.2) K/uL Neutrophils % (Manual) 87 H (50-75) % Band Neutrophils % 9 H (0-2) % Lymphocytes % (Manual) 2 L (20-40) % Monocytes % (Manual) 2 (0-10) % Nucleated RBC % 2 H (0-0) % Toxic Granulation Present Platelet Estimate Slightly decreased L (NORMAL) Anisocytosis (manual) Moderate Puncture Site pCO2 (35-45) mm/Hg pO2 (80-100) mm/Hg HCO3 (21-28) mmol/L ABG pH (7.35-7.45) ABG Total CO2 (22-28) mmol/L ABG O2 Saturation (95-98) % ABG Base Excess (-2.0-3.0) mmol/L ABG Hemoglobin (11.7-17.4) g/dL ABG Carboxyhemoglobin (0.5-1.5) % POC ABG HHb (Measured) (0.0-5.0) % ABG Methemoglobin (0.0-3.0) % [place]co Test ABG Potassium (3.6-5.2) mmol/L A-a O2 Difference mm/Hg Respiratory Index Hgb O2 Saturation (95.0-98.0) % Glucose (75-110) mg/dl Lactate (0.7-2.1) mmol/L Vent Mode Mechanical Rate FiO2 % Tidal Volume PEEP Sodium 138 (132-148) mmol/L Potassium 4.7 (3.6-5.2) mmol/L Chloride 104 (98-107) mmol/L Carbon Dioxide 15 L (22-30) mmol/L Anion Gap 24 H (10-20) BUN 38 H (9-20) mg/dL Creatinine 3.2 H (0.8-1.5) mg/dL Est GFR ( Amer) 23 Est GFR (Non-Af Amer) 19 POC Glucose (mg/dL) 205 H (65-110) mg/dL Random Glucose 176 H (75-110) mg/dL Lactic Acid (0.7-2.1) mmol/L Calcium 7.1 L (8.6-10.4) mg/dl Phosphorus 6.7 H (2.5-4.5) mg/dL Magnesium 1.9 (1.6-2.3) mg/dL Total Bilirubin 5.8 H (0.2-1.3) mg/dL AST 1183 H (17-59) U/L ALT 515 H (21-72) U/L Alkaline Phosphatase 232 H D (38-126) U/L Total Protein 5.1 L (6.3-8.3) g/dL Albumin 2.2 L (3.5-5.0) g/dL Globulin 2.9 (2.2-3.9) gm/dL Albumin/Globulin Ratio 0.7 L (1.0-2.1) Arterial Blood Potassium (3.6-5.2) mmol/L Ur L.pneumophila Ag 08/14/17 08/13/17 08/13/17 Range/Units 05:38 23:25 18:03 WBC (4.8-10.8) K/uL RBC (4.40-5.90) Mil/uL Hgb (12.0-18.0) g/dL Hct (35.0-51.0) % MCV (80.0-94.0) fL MCH (27.0-31.0) pg MCHC (33.0-37.0) g/dL RDW (11.5-14.5) % Plt Count (130-400) K/uL MPV (7.2-11.7) fL Neut % (Auto) (50.0-75.0) % Lymph % (Auto) (20.0-40.0) % [place] % (Auto) (0.0-10.0) % Eos % (Auto) (0.0-4.0) % Baso % (Auto) (0.0-2.0) % Neut # (Auto) (1.8-7.0) K/uL Lymph # (Auto) (1.0-4.3) K/uL [place] # (Auto) (0.0-0.8) K/uL Eos # (Auto) (0.0-0.7) K/uL Baso # (Auto) (0.0-0.2) K/uL Neutrophils % (Manual) (50-75) % Band Neutrophils % (0-2) % Lymphocytes % (Manual) (20-40) % Monocytes % (Manual) (0-10) % Nucleated RBC % (0-0) % Toxic Granulation Platelet Estimate (NORMAL) Anisocytosis (manual) Puncture Site A-line pCO2 37 (35-45) mm/Hg pO2 111 H (80-100) mm/Hg HCO3 17.0 L (21-28) mmol/L ABG pH 7.25 L (7.35-7.45) ABG Total CO2 17.3 L (22-28) mmol/L ABG O2 Saturation 99.5 H (95-98) % ABG Base Excess -10.2 L (-2.0-3.0) mmol/L ABG Hemoglobin 10.0 L (11.7-17.4) g/dL ABG Carboxyhemoglobin 2.8 H (0.5-1.5) % POC ABG HHb (Measured) 0.5 (0.0-5.0) % ABG Methemoglobin 0.8 (0.0-3.0) % [place] Test Na ABG Potassium (3.6-5.2) mmol/L A-a O2 Difference 556.0 mm/Hg Respiratory Index 5.0 Hgb O2 Saturation 95.9 (95.0-98.0) % Glucose (75-110) mg/dl Lactate (0.7-2.1) mmol/L Vent Mode Prvc Mechanical Rate 22 FiO2 100.0 % Tidal Volume 500 PEEP 5 Sodium (132-148) mmol/L Potassium (3.6-5.2) mmol/L Chloride (98-107) mmol/L Carbon Dioxide (22-30) mmol/L Anion Gap (10-20) BUN (9-20) mg/dL Creatinine (0.8-1.5) mg/dL Est GFR ( Amer) Est GFR (Non-Af Amer) POC Glucose (mg/dL) 178 H 125 H (65-110) mg/dL Random Glucose (75-110) mg/dL Lactic Acid (0.7-2.1) mmol/L Calcium (8.6-10.4) mg/dl Phosphorus (2.5-4.5) mg/dL Magnesium (1.6-2.3) mg/dL Total Bilirubin (0.2-1.3) mg/dL AST (17-59) U/L ALT (21-72) U/L Alkaline Phosphatase (38-126) U/L Total Protein (6.3-8.3) g/dL Albumin (3.5-5.0) g/dL Globulin (2.2-3.9) gm/dL Albumin/Globulin Ratio (1.0-2.1) Arterial Blood Potassium (3.6-5.2) mmol/L Ur L.pneumophila Ag 08/12/17 Range/Units 15:32 WBC (4.8-10.8) K/uL RBC (4.40-5.90) Mil/uL Hgb (12.0-18.0) g/dL Hct (35.0-51.0) % MCV (80.0-94.0) fL MCH (27.0-31.0) pg MCHC (33.0-37.0) g/dL RDW (11.5-14.5) % Plt Count (130-400) K/uL MPV (7.2-11.7) fL Neut % (Auto) (50.0-75.0) % Lymph % (Auto) (20.0-40.0) % [place] % (Auto) (0.0-10.0) % Eos % (Auto) (0.0-4.0) % Baso % (Auto) (0.0-2.0) % Neut # (Auto) (1.8-7.0) K/uL Lymph # (Auto) (1.0-4.3) K/uL [place] # (Auto) (0.0-0.8) K/uL Eos # (Auto) (0.0-0.7) K/uL Baso # (Auto) (0.0-0.2) K/uL Neutrophils % (Manual) (50-75) % Band Neutrophils % (0-2) % Lymphocytes % (Manual) (20-40) % Monocytes % (Manual) (0-10) % Nucleated RBC % (0-0) % Toxic Granulation Platelet Estimate (NORMAL) Anisocytosis (manual) Puncture Site pCO2 (35-45) mm/Hg pO2 (80-100) mm/Hg HCO3 (21-28) mmol/L ABG pH (7.35-7.45) ABG Total CO2 (22-28) mmol/L ABG O2 Saturation (95-98) % ABG Base Excess (-2.0-3.0) mmol/L ABG Hemoglobin (11.7-17.4) g/dL ABG Carboxyhemoglobin (0.5-1.5) % POC ABG HHb (Measured) (0.0-5.0) % ABG Methemoglobin (0.0-3.0) % [place] Test ABG Potassium (3.6-5.2) mmol/L A-a O2 Difference mm/Hg Respiratory Index Hgb O2 Saturation (95.0-98.0) % Glucose (75-110) mg/dl Lactate (0.7-2.1) mmol/L Vent Mode Mechanical Rate FiO2 % Tidal Volume PEEP Sodium (132-148) mmol/L Potassium (3.6-5.2) mmol/L Chloride (98-107) mmol/L Carbon Dioxide (22-30) mmol/L Anion Gap (10-20) BUN (9-20) mg/dL Creatinine (0.8-1.5) mg/dL Est GFR ( Amer) Est GFR (Non-Af Amer) POC Glucose (mg/dL) (65-110) mg/dL Random Glucose (75-110) mg/dL Lactic Acid (0.7-2.1) mmol/L Calcium (8.6-10.4) mg/dl Phosphorus (2.5-4.5) mg/dL Magnesium (1.6-2.3) mg/dL Total Bilirubin (0.2-1.3) mg/dL AST (17-59) U/L ALT (21-72) U/L Alkaline Phosphatase (38-126) U/L Total Protein (6.3-8.3) g/dL Albumin (3.5-5.0) g/dL Globulin (2.2-3.9) gm/dL Albumin/Globulin Ratio (1.0-2.1) Arterial Blood Potassium (3.6-5.2) mmol/L Ur L.pneumophila Ag Cancelled Laboratory Results - last 24 hr 08/12/17 08/13/17 08/13/17 15:32 18:03 23:25 WBC RBC Hgb Hct MCV MCH MCHC RDW Plt Count MPV Neut % (Auto) Lymph % (Auto) [place] % (Auto) Eos % (Auto) Baso % (Auto) Neut # (Auto) Lymph # (Auto) [place] # (Auto) Eos # (Auto) Baso # (Auto) Neutrophils % (Manual) Band Neutrophils % Lymphocytes % (Manual) Monocytes % (Manual) Nucleated RBC % Toxic Granulation Platelet Estimate Anisocytosis (manual) Puncture Site pCO2 pO2 HCO3 ABG pH ABG Total CO2 ABG O2 Saturation ABG Base Excess ABG Hemoglobin ABG Carboxyhemoglobin POC ABG HHb (Measured) ABG Methemoglobin [place] Test ABG Potassium A-a O2 Difference Respiratory Index Hgb O2 Saturation Glucose Lactate Vent Mode Mechanical Rate FiO2 Tidal Volume PEEP Sodium Potassium Chloride Carbon Dioxide Anion Gap BUN Creatinine Est GFR ( Amer) Est GFR (Non-Af Amer) POC Glucose (mg/dL) 125 H 178 H Random Glucose Lactic Acid Calcium Phosphorus Magnesium Total Bilirubin AST ALT Alkaline Phosphatase Total Protein Albumin Globulin Albumin/Globulin Ratio Arterial Blood Potassium Ur L.pneumophila Ag Cancelled 08/14/17 08/14/17 08/14/17 05:38 05:56 06:15 WBC 17.4 H D RBC 3.29 L Hgb 9.9 L Hct 31.1 L MCV 94.6 H MCH 30.0 MCHC 31.7 L RDW 19.5 H Plt Count 112 L D MPV 11.5 Neut % (Auto) 95.1 H Lymph % (Auto) 2.3 L [place] % (Auto) 2.3 Eos % (Auto) 0.2 Baso % (Auto) 0.1 Neut # (Auto) 16.5 H Lymph # (Auto) 0.4 L [place] # (Auto) 0.4 Eos # (Auto) 0.0 Baso # (Auto) 0.0 Neutrophils % (Manual) 87 H Band Neutrophils % 9 H Lymphocytes % (Manual) 2 L Monocytes % (Manual) 2 Nucleated RBC % 2 H Toxic Granulation Present Platelet Estimate Slightly decreased L Anisocytosis (manual) Moderate Puncture Site A-line pCO2 37 pO2 111 H HCO3 17.0 L ABG pH 7.25 L ABG Total CO2 17.3 L ABG O2 Saturation 99.5 H ABG Base Excess -10.2 L ABG Hemoglobin 10.0 L ABG Carboxyhemoglobin 2.8 H POC ABG HHb (Measured) 0.5 ABG Methemoglobin 0.8 [place] Test Na ABG Potassium A-a O2 Difference 556.0 Respiratory Index 5.0 Hgb O2 Saturation 95.9 Glucose Lactate Vent Mode Prvc Mechanical Rate 22 FiO2 100.0 Tidal Volume 500 PEEP 5 Sodium Potassium Chloride Carbon Dioxide Anion Gap BUN Creatinine Est GFR ( Amer) Est GFR (Non-Af Amer) POC Glucose (mg/dL) 205 H Random Glucose Lactic Acid Calcium Phosphorus Magnesium Total Bilirubin AST ALT Alkaline Phosphatase Total Protein Albumin Globulin Albumin/Globulin Ratio Arterial Blood Potassium Ur L.pneumophila Ag 08/14/17 08/14/17 08/14/17 06:15 08:37 11:22 WBC RBC Hgb Hct MCV MCH MCHC RDW Plt Count MPV Neut % (Auto) Lymph % (Auto) [place] % (Auto) Eos % (Auto) Baso % (Auto) Neut # (Auto) Lymph # (Auto) [place] # (Auto) Eos # (Auto) Baso # (Auto) Neutrophils % (Manual) Band Neutrophils % Lymphocytes % (Manual) Monocytes % (Manual) Nucleated RBC % Toxic Granulation Platelet Estimate Anisocytosis (manual) Puncture Site pCO2 pO2 HCO3 ABG pH ABG Total CO2 ABG O2 Saturation ABG Base Excess ABG Hemoglobin ABG Carboxyhemoglobin POC ABG HHb (Measured) ABG Methemoglobin [place] Test ABG Potassium A-a O2 Difference Respiratory Index Hgb O2 Saturation Glucose Lactate Vent Mode Mechanical Rate FiO2 Tidal Volume PEEP Sodium 138 Potassium 4.7 Chloride 104 Carbon Dioxide 15 L Anion Gap 24 H BUN 38 H Creatinine 3.2 H Est GFR ( Amer) 23 Est GFR (Non-Af Amer) 19 POC Glucose (mg/dL) 210 H Random Glucose 176 H Lactic Acid 8.0 H* Calcium 7.1 L Phosphorus 6.7 H Magnesium 1.9 Total Bilirubin 5.8 H AST 1183 H ALT 515 H Alkaline Phosphatase 232 H D Total Protein 5.1 L Albumin 2.2 L Globulin 2.9 Albumin/Globulin Ratio 0.7 L Arterial Blood Potassium Ur L.pneumophila Ag 08/14/17 16:46 WBC RBC Hgb Hct MCV MCH MCHC RDW Plt Count MPV Neut % (Auto) Lymph % (Auto) [place] % (Auto) Eos % (Auto) Baso % (Auto) Neut # (Auto) Lymph # (Auto) [place] # (Auto) Eos # (Auto) Baso # (Auto) Neutrophils % (Manual) Band Neutrophils % Lymphocytes % (Manual) Monocytes % (Manual) Nucleated RBC % Toxic Granulation Platelet Estimate Anisocytosis (manual) Puncture Site Venous pCO2 24 L pO2 79 L HCO3 16.0 L ABG pH 7.33 L ABG Total CO2 13.4 L ABG O2 Saturation 98.8 H ABG Base Excess -11.3 L ABG Hemoglobin ABG Carboxyhemoglobin POC ABG HHb (Measured) ABG Methemoglobin [place] Test Na ABG Potassium 2.6 L A-a O2 Difference 604.0 Respiratory Index 7.6 Hgb O2 Saturation Glucose 139 H Lactate 2.9 H Vent Mode Simv/pc Mechanical Rate 22 FiO2 100.0 Tidal Volume PEEP 5 Sodium 143.0 Potassium Chloride 116.0 H Carbon Dioxide Anion Gap BUN Creatinine Est GFR ( Amer) Est GFR (Non-Af Amer) POC Glucose (mg/dL) Random Glucose Lactic Acid Calcium Phosphorus Magnesium Total Bilirubin AST ALT Alkaline Phosphatase Total Protein Albumin Globulin Albumin/Globulin Ratio Arterial Blood Potassium 2.6 L Ur L.pneumophila Ag Assessment/Plan - Assessment and Plan (Free Text) Plan: A/P Hypoxic respiratory failure/ARDS like picture, peep at 5 , change from PRVC to pressure support, repeat ABG, contineu bronchodiators -Shock/septic and cardiogenic: continue hydrocortisone/thiamine/vitamin C, currently on vanco per level, qasim , add doxycycline for atypical and gentamicin for double coverage, obtain sputum culture, and f/u blood cutlures, serial lactic -Chronic heart failure with low EF and A-fib: will start amiodarone ggt for rate control, currently HR near 130-140s (if HR not controlled), dig given in AM team to improve inotropy -JENNIFER/metabolic acidosis: continue HD as per renal, add bicarb tabs orally to improve acid base status -NG tube feeds, check BGM q6hrs, ISS lispro -continue dvt/pud ppx PAtient remains critical with high morbididy and mortalitity. check Right fermoal site central line removed and left central placed cc time 40 minutes d/w nursing - Date & Time Date: 08/14/17 Time: 17:24
--- NOTE | 2017-08-14 12:26 | PCM.PROC ---
Procedures Attestation:: I certify that I have explained the specified Operation(s) or Procedure(s), risks, benefits and reasonable alternatives to the Patient and/or other person responsible. The opportunity was given to ask questions and all questions answered - Central Line Placement Left Internal Jugular Triple Lumen Catheter Aseptic technique was employed throughout the procedure: Hand Hygiene done prior to procedure, Full sterile barriers (mask, hair cover, sterile gown, sterile gloves), Full body sterile drape, Chloraprep Antiseptic: 30 second prep for IJ or SC sites CVP Time Out Performed: Yes Pt. Placed on Pulse Ox Monitor: Yes Central Line Prep: Chlorhexidine-Alcohol Combination Local Anesthesia Used: Lidocaine 1% Amount of Anesthesia Used (mls): 5 Ultrasound Used for Placement: Yes Central Line Lumen Inserted: triple Central Line Length: 16 cm Post Procedure: Sutured in Place, Good Blood Return, All Ports Aspirated, Flushed, Capped, Sterile Dressing Applied Secured by: Suture Post procedure dressing: Chlorhexidine disc (Biopatch) Post Procedure X-Ray: Yes Patient Tolerated Procedure: Well Immediate Complications: None
--- NOTE | 2017-08-14 12:35 | CP.PCM.PN ---
Subjective - Date & Time of Evaluation Date of Evaluation: 08/14/17 Time of Evaluation: 12:35 - Subjective Subjective: afebrile. NO ACUTE EVENTS OVERNIGHT intubated ON 2 VASOPRESSORS. POORLY RESPONSIVE SERUM LACTATE 8.0 INCREASING. ON MULTIPLE ABX IV MERREM IV VANCOMYCIN. IV DOXYCYCLINE. IV steroids Labs noted; Sputum +ve many positive PMNs. Many gram-positive cocci in chains. Moderate yeast. Objective - Vital Signs/Intake and Output Vital Signs (last 24 hours): Temp Pulse Resp BP Pulse Ox 98.0 F 119 H 20 131/58 L 98 08/14/17 08:00 08/14/17 11:04 08/14/17 11:04 08/14/17 11:04 08/14/17 11:04 Intake and Output: 08/14/17 08/14/17 06:59 18:59 Intake Total 1585.1 686.5 Balance 1585.1 686.5 - Medications Medications: Current Medications Ascorbic Acid (Vitamin C 500 Mg Tab) 1,000 mg PO Q8H [facility] Last Admin: 08/14/17 09:12 Dose: 1,000 mg Dextrose (Dextrose 50% Inj) 0 ml IV STAT PRN; Protocol PRN Reason: Hypoglycemia Protocol Last Admin: 08/12/17 09:45 Dose: 50 ml Hydrocortisone Sodium Succinate (Solu-Cortef) 100 mg IV Q8H [facility] Last Admin: 08/14/17 11:01 Dose: 100 mg Meropenem 500 mg/ Sodium (Chloride) 100 mls @ 100 mls/hr IVPB Q12H [facility] PRN Reason: Protocol Last Admin: 08/14/17 10:12 Dose: 100 mls/hr Phenylephrine HCl 120 mg/ (Sodium Chloride) 1,012 mls @ 10.12 mls/hr IV .Q24H PRN; Protocol; 20 MCG/MIN PRN Reason: TITRATE PER MD ORDER Last Titration: 08/14/17 01:00 Dose: 59.28 mcg/min, 29.99 mls/hr Norepinephrine Bitartrate 16 (mg/ Sodium Chloride) 1,016 mls @ 15.24 mls/hr IV .Q24H PRN; Protocol; 4 MCG/MIN PRN Reason: TITRATE PER MD ORDER Last Admin: 08/14/17 01:07 Dose: 14.77 mcg/min, 56.3 mls/hr Doxycycline Hyclate 100 mg/ (Sodium Chloride) 100 mls @ 100 mls/hr IVPB Q12H [facility] PRN Reason: Protocol Last Admin: 08/14/17 08:43 Dose: 100 mls/hr Fentanyl Citrate 2,500 mcg/ (Sodium Chloride) 250 mls @ 11 mls/hr IV .[id number] [place]; 2 MCG/KG/HR PRN Reason: Protocol Last Titration: 08/14/17 01:05 Dose: 2 mcg/kg/hr, 11 mls/hr Vasopressin 40 units/ Dextrose 42 mls @ 2.52 mls/hr IV .[id number] [place]; 0.04 UNITS /MIN PRN Reason: Protocol Last Admin: 08/14/17 05:46 Dose: Not Given Vancomycin HCl 500 mg/ Sodium (Chloride) 100 mls @ 100 mls/hr IVPB MWF [facility] PRN Reason: Protocol Last Admin: 08/13/17 16:30 Dose: 100 mls/hr Insulin Aspart (Novolog) 0 unit SC Q6 [facility] PRN Reason: Protocol Last Admin: 08/14/17 11:26 Dose: 2 unit Ipratropium [place] (Atrovent) 0.5 mg IH RQ6 [facility] Last Admin: 08/14/17 07:24 Dose: 0.5 mg Midodrine (Proamatine) 5 mg PO TID [facility] Last Admin: 08/14/17 09:12 Dose: 5 mg Pantoprazole Sodium (Protonix Inj) 40 mg IVP DAILY [facility] Last Admin: 08/14/17 09:11 Dose: 40 mg Sodium Bicarbonate (Sodium Bicarbonate Tab) 1,300 mg PO Q6 [facility] Last Admin: 08/14/17 11:00 Dose: 1,300 mg - Labs Labs: 08/14/17 06:15 08/14/17 06:15 PT 17.1 SECONDS (9.7-12.2) H 08/12/17 05:07 INR 1.5 08/12/17 05:07 APTT 42 SECONDS (21-34) H 08/12/17 05:07 - Constitutional Appears: No Acute Distress - Head Exam Head Exam: NORMAL INSPECTION - Eye Exam Eye Exam: PERRL - ENT Exam ENT Exam: Mucous Membranes Moist - Neck Exam Neck Exam: Normal Inspection - Respiratory Exam Respiratory Exam: Prolonged Expiratory Phase, Rhonchi (bilateral) - Cardiovascular Exam Cardiovascular Exam: Tachycardia, REGULAR RHYTHM, +S1, +S2 - GI/Abdominal Exam GI & Abdominal Exam: Soft, Normal Bowel Sounds - Extremities Exam Extremities Exam: Normal Capillary Refill. absent: Calf Tenderness, Pedal Edema - Neurological Exam Neurological Exam: Altered - Skin Skin Exam: Warm Assessment and Plan (1) Septic shock Status: Acute (2) Respiratory failure, acute Status: Acute (3) Pneumonia Status: Acute (4) CHF (congestive heart failure) Status: Acute (5) Abnormal liver enzymes Assessment & Plan: LFTs improving Follow-up LFTs. Status: Acute (6) Colon cancer metastasized to liver Status: Acute (7) Diabetes mellitus Status: Chronic (8) ESRD (end stage renal disease) on dialysis Status: Chronic (9) HTN (hypertension) Status: Chronic (10) Ischemic cardiomyopathy Status: Acute - Assessment and Plan (Free Text) Plan: CONTINUE iv MERREM 500 MG EVERY 12 HOURLY.08/12/17 CONTINUE IV DOXYCYCLINE 100MG IV [id number] 08/12/17 PATIENT GOT 1 DOSE OF VANCOMYCIN 1 G ON 08/12/17. CONTINUE IV VANCOMYCIN 500MG POST HD MWF X 6 DOSE. F/U CULTURES TO ADJUST IV ABX. PT ON VASOPRESSORS /steroids AND FLUID BOLUSES . case discussed with the medical staff on-duty. prognosis guarded.
--- NOTE | 2017-08-14 14:07 | RAD ---
Chest x-ray single frontal view History: Line placement. Comparison: 08/14/2017 Findings: Left central venous catheter with tip extending to the proximal right SVC. The proximal portion of the catheter appears coiled. Clinical correlation. Multiple external wires and battery pack devices markedly limit evaluation. Bilateral axillary stents in place. Right central venous catheter with tip extending to the right atrium. NG tube extending into the stomach. ET tube extending into the mid to lower thoracic trachea with exact positioning obscured by overlying battery pack device. Moderate venous congestion. Consolidative changes in the left mid to lower lung zone. Cardiomegaly. IVC filter in place. Degenerative changes in the spine. Impression: Left central venous catheter with tip extending to the proximal right SVC. The proximal portion of the catheter appears coiled. Clinical correlation. Multiple external wires and battery pack devices markedly limit evaluation. Bilateral axillary stents in place. Right central venous catheter with tip extending to the right atrium. NG tube extending into the stomach. ET tube extending into the mid to lower thoracic trachea with exact positioning obscured by overlying battery pack device. Moderate venous congestion. Consolidative changes in the left mid to lower lung zone. Cardiomegaly. IVC filter in place. Degenerative changes in the spine.
[2017-08-14 16:59] LABS: ARTERIAL BLOOD GAS O2 SAT 98.8 % (95-98); ARTERIAL BLOOD GAS PCO2 24 mm/Hg (35-45); ARTERIAL BLOOD GAS PH 7.33 (7.35-7.45); ARTERIAL BLOOD GAS PO2 79 mm/Hg (80-100); ARTERIAL BLOOD GAS TCO2 13.4 mmol/L (22-28)
--- NOTE | 2017-08-14 17:01 | CP.PCM.PN ---
Subjective - Date & Time of Evaluation Date of Evaluation: 08/14/17 Time of Evaluation: 10:30 - Subjective Subjective: PATIENT SEEN, STILL INYUBATED- LESS RESPONSIVE, NURSE REPORTS, POOR CLINICAALY DISCUSSION WITH DAUGHTER -UPDATE PATIENT'S CONDITION ON ANTIBIOTIC Objective - Vital Signs/Intake and Output Vital Signs (last 24 hours): Temp Pulse Resp BP Pulse Ox 99.4 F 114 H 16 98/59 L 98 08/14/17 16:00 08/14/17 16:00 08/14/17 16:00 08/14/17 15:21 08/14/17 16:00 Intake and Output: 08/14/17 08/14/17 06:59 18:59 Intake Total 1585.1 2374.1 Balance 1585.1 2374.1 - Medications Medications: Current Medications Ascorbic Acid (Vitamin C 500 Mg Tab) 1,000 mg PO Q8H [facility] Last Admin: 08/14/17 09:12 Dose: 1,000 mg Dextrose (Dextrose 50% Inj) 0 ml IV STAT PRN; Protocol PRN Reason: Hypoglycemia Protocol Last Admin: 08/12/17 09:45 Dose: 50 ml Hydrocortisone Sodium Succinate (Solu-Cortef) 100 mg IV Q8H [facility] Last Admin: 08/14/17 11:01 Dose: 100 mg Meropenem 500 mg/ Sodium (Chloride) 100 mls @ 100 mls/hr IVPB Q12H [facility] PRN Reason: Protocol Last Admin: 08/14/17 10:12 Dose: 100 mls/hr Phenylephrine HCl 120 mg/ (Sodium Chloride) 1,012 mls @ 10.12 mls/hr IV .Q24H PRN; Protocol; 20 MCG/MIN PRN Reason: TITRATE PER MD ORDER Last Titration: 08/14/17 14:52 Dose: 0 mcg/min, 0 mls/hr Norepinephrine Bitartrate 16 (mg/ Sodium Chloride) 1,016 mls @ 15.24 mls/hr IV .Q24H PRN; Protocol; 4 MCG/MIN PRN Reason: TITRATE PER MD ORDER Last Titration: 08/14/17 14:30 Dose: 10 mcg/min, 38.1 mls/hr Doxycycline Hyclate 100 mg/ (Sodium Chloride) 100 mls @ 100 mls/hr IVPB Q12H [facility] PRN Reason: Protocol Last Admin: 08/14/17 08:43 Dose: 100 mls/hr Fentanyl Citrate 2,500 mcg/ (Sodium Chloride) 250 mls @ 11 mls/hr IV .[id number] [facility]; 2 MCG/KG/HR PRN Reason: Protocol Last Titration: 08/14/17 01:05 Dose: 2 mcg/kg/hr, 11 mls/hr Vancomycin HCl 500 mg/ Sodium (Chloride) 100 mls @ 100 mls/hr IVPB MWF [facility] PRN Reason: Protocol Last Admin: 08/13/17 16:30 Dose: 100 mls/hr Vasopressin 40 units/ Sodium (Chloride) 42 mls @ 2.52 mls/hr IV .[id number] [facility]; 0.04 UNITS/MIN PRN Reason: Protocol Last Titration: 08/14/17 14:00 Dose: 0.04 units/min, 2.52 mls/hr Insulin Aspart (Novolog) 0 unit SC Q6 [facility] PRN Reason: Protocol Last Admin: 08/14/17 11:26 Dose: 2 unit Ipratropium [place] (Atrovent) 0.5 mg IH RQ6 [facility] Last Admin: 08/14/17 13:35 Dose: 0.5 mg Midodrine (Proamatine) 5 mg PO TID [facility] Last Admin: 08/14/17 14:12 Dose: 5 mg Pantoprazole Sodium (Protonix Inj) 40 mg IVP DAILY [facility] Last Admin: 08/14/17 09:11 Dose: 40 mg Sodium Bicarbonate (Sodium Bicarbonate Tab) 1,300 mg PO Q6 [facility] Last Admin: 08/14/17 11:00 Dose: 1,300 mg - Labs Labs: 08/14/17 06:15 08/14/17 06:15 PT 17.1 SECONDS (9.7-12.2) H 08/12/17 05:07 INR 1.5 08/12/17 05:07 APTT 42 SECONDS (21-34) H 08/12/17 05:07 - Constitutional Appears: Other (INTUBATED , NO RESPONSE WITH CALL,PAIN) - Head Exam Head Exam: ATRAUMATIC, NORMOCEPHALIC - Eye Exam Eye Exam: Periorbital swelling - Respiratory Exam Respiratory Exam: Decreased Breath Sounds - Cardiovascular Exam Cardiovascular Exam: Irregular Rhythm - GI/Abdominal Exam GI & Abdominal Exam: Soft, Normal Bowel Sounds. 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
--- NOTE | 2017-08-14 18:12 | CP.PCM.PN ---
Subjective - Date & Time of Evaluation Date of Evaluation: 08/14/17 Time of Evaluation: 11:30 - Subjective Subjective: the patient seen and examined in the intensive care unit. Patient remained intubated on ventilatory support On 2 pressors for hypotension Increasing lactic acid level Poorly responsive Objective - Vital Signs/Intake and Output Vital Signs (last 24 hours): Temp Pulse Resp BP Pulse Ox 99.4 F 114 H 16 98/59 L 98 08/14/17 16:00 08/14/17 16:00 08/14/17 16:00 08/14/17 15:21 08/14/17 16:00 Intake and Output: 08/14/17 08/14/17 06:59 18:59 Intake Total 1585.1 2374.1 Balance 1585.1 2374.1 - Medications Medications: Current Medications Ascorbic Acid (Vitamin C 500 Mg Tab) 1,000 mg PO Q8H [facility] Last Admin: 08/14/17 17:24 Dose: 1,000 mg Dextrose (Dextrose 50% Inj) 0 ml IV STAT PRN; Protocol PRN Reason: Hypoglycemia Protocol Last Admin: 08/12/17 09:45 Dose: 50 ml Hydrocortisone Sodium Succinate (Solu-Cortef) 100 mg IV Q8H [facility] Last Admin: 08/14/17 11:01 Dose: 100 mg Meropenem 500 mg/ Sodium (Chloride) 100 mls @ 100 mls/hr IVPB Q12H [facility] PRN Reason: Protocol Last Admin: 08/14/17 10:12 Dose: 100 mls/hr Phenylephrine HCl 120 mg/ (Sodium Chloride) 1,012 mls @ 10.12 mls/hr IV .Q24H PRN; Protocol; 20 MCG/MIN PRN Reason: TITRATE PER MD ORDER Last Titration: 08/14/17 14:52 Dose: 0 mcg/min, 0 mls/hr Norepinephrine Bitartrate 16 (mg/ Sodium Chloride) 1,016 mls @ 15.24 mls/hr IV .Q24H PRN; Protocol; 4 MCG/MIN PRN Reason: TITRATE PER MD ORDER Last Titration: 08/14/17 14:30 Dose: 10 mcg/min, 38.1 mls/hr Doxycycline Hyclate 100 mg/ (Sodium Chloride) 100 mls @ 100 mls/hr IVPB Q12H [facility] PRN Reason: Protocol Last Admin: 08/14/17 08:43 Dose: 100 mls/hr Fentanyl Citrate 2,500 mcg/ (Sodium Chloride) 250 mls @ 11 mls/hr IV .[id number] [facility]; 2 MCG/KG/HR PRN Reason: Protocol Last Titration: 08/14/17 01:05 Dose: 2 mcg/kg/hr, 11 mls/hr Vancomycin HCl 500 mg/ Sodium (Chloride) 100 mls @ 100 mls/hr IVPB MWF [facility] PRN Reason: Protocol Last Admin: 08/13/17 16:30 Dose: 100 mls/hr Vasopressin 40 units/ Sodium (Chloride) 42 mls @ 2.52 mls/hr IV .[id number] [facility]; 0.04 UNITS/MIN PRN Reason: Protocol Last Titration: 08/14/17 14:00 Dose: 0.04 units/min, 2.52 mls/hr Insulin Aspart (Novolog) 0 unit SC Q6 [facility] PRN Reason: Protocol Last Admin: 08/14/17 18:06 Dose: 2 unit Ipratropium [place] (Atrovent) 0.5 mg IH RQ6 [facility] Last Admin: 08/14/17 13:35 Dose: 0.5 mg Midodrine (Proamatine) 5 mg PO TID [facility] Last Admin: 08/14/17 14:12 Dose: 5 mg Pantoprazole Sodium (Protonix Inj) 40 mg IVP DAILY [facility] Last Admin: 08/14/17 09:11 Dose: 40 mg Sodium Bicarbonate (Sodium Bicarbonate Tab) 1,300 mg PO Q6 [facility] Last Admin: 08/14/17 17:24 Dose: 1,300 mg - Labs Labs: 08/14/17 06:15 08/14/17 06:15 PT 17.1 SECONDS (9.7-12.2) H 08/12/17 05:07 INR 1.5 08/12/17 05:07 APTT 42 SECONDS (21-34) H 08/12/17 05:07 - Head Exam Head Exam: ATRAUMATIC, NORMOCEPHALIC - Neck Exam Neck Exam: Normal Inspection - Respiratory Exam Respiratory Exam: Decreased Breath Sounds - Cardiovascular Exam Cardiovascular Exam: Tachycardia - GI/Abdominal Exam GI & Abdominal Exam: Soft, Normal Bowel Sounds Assessment and Plan (1) Respiratory failure Assessment & Plan: continue ventilatory support Followup ABG and lactate level Followup chest x-ray Antibiotics, steroids and pressors Status: Acute (2) Septic shock Status: Acute (3) Atrial fibrillation with RVR Status: Acute (4) ESRD (end stage renal disease) Status: Acute
--- NOTE | 2017-08-14 20:58 | CP.PCM.PN ---
Subjective - Date & Time of Evaluation Date of Evaluation: 08/14/17 Time of Evaluation: 14:15 - Subjective Subjective: the patient seen and examined in the intensive care unit. Patient remained intubated on ventilatory support On 2 pressors for hypotension Increasing lactic acid level Poorly responsive Objective - Vital Signs/Intake and Output Vital Signs (last 24 hours): Temp Pulse Resp BP Pulse Ox 99.4 F 112 H 22 115/51 L 95 08/14/17 16:00 08/14/17 20:27 08/14/17 20:27 08/14/17 20:27 08/14/17 20:27 Intake and Output: 08/14/17 08/15/17 18:59 06:59 Intake Total 2557.1 40 Output Total 100 Balance 2457.1 40 - Medications Medications: Current Medications Ascorbic Acid (Vitamin C 500 Mg Tab) 1,000 mg PO Q8H [facility] Last Admin: 08/14/17 17:24 Dose: 1,000 mg Dextrose (Dextrose 50% Inj) 0 ml IV STAT PRN; Protocol PRN Reason: Hypoglycemia Protocol Last Admin: 08/12/17 09:45 Dose: 50 ml Hydrocortisone Sodium Succinate (Solu-Cortef) 100 mg IV Q8H [facility] Last Admin: 08/14/17 20:06 Dose: 100 mg Meropenem 500 mg/ Sodium (Chloride) 100 mls @ 100 mls/hr IVPB Q12H [facility] PRN Reason: Protocol Last Admin: 08/14/17 10:12 Dose: 100 mls/hr Phenylephrine HCl 120 mg/ (Sodium Chloride) 1,012 mls @ 10.12 mls/hr IV .Q24H PRN; Protocol; 20 MCG/MIN PRN Reason: TITRATE PER MD ORDER Last Titration: 08/14/17 14:52 Dose: 0 mcg/min, 0 mls/hr Norepinephrine Bitartrate 16 (mg/ Sodium Chloride) 1,016 mls @ 15.24 mls/hr IV .Q24H PRN; Protocol; 4 MCG/MIN PRN Reason: TITRATE PER MD ORDER Last Titration: 08/14/17 14:30 Dose: 10 mcg/min, 38.1 mls/hr Doxycycline Hyclate 100 mg/ (Sodium Chloride) 100 mls @ 100 mls/hr IVPB Q12H [facility] PRN Reason: Protocol Last Admin: 08/14/17 20:05 Dose: 100 mls/hr Fentanyl Citrate 2,500 mcg/ (Sodium Chloride) 250 mls @ 11 mls/hr IV .[id number] [facility]; 2 MCG/KG/HR PRN Reason: Protocol Last Admin: 08/14/17 17:13 Dose: Not Given Vancomycin HCl 500 mg/ Sodium (Chloride) 100 mls @ 100 mls/hr IVPB MWF [facility] PRN Reason: Protocol Last Admin: 08/13/17 16:30 Dose: 100 mls/hr Vasopressin 40 units/ Sodium (Chloride) 42 mls @ 2.52 mls/hr IV .[id number] [facility]; 0.04 UNITS/MIN PRN Reason: Protocol Last Admin: 08/14/17 20:27 Dose: 0.04 units/min, 2.52 mls/hr Insulin Aspart (Novolog) 0 unit SC Q6 [facility] PRN Reason: Protocol Last Admin: 08/14/17 18:06 Dose: 2 unit Ipratropium [place] (Atrovent) 0.5 mg IH RQ6 [facility] Last Admin: 08/14/17 20:45 Dose: 0.5 mg Midodrine (Proamatine) 5 mg PO TID [facility] Last Admin: 08/14/17 18:00 Dose: 5 mg Pantoprazole Sodium (Protonix Inj) 40 mg IVP DAILY [facility] Last Admin: 08/14/17 09:11 Dose: 40 mg Sodium Bicarbonate (Sodium Bicarbonate Tab) 1,300 mg PO Q6 [facility] Last Admin: 08/14/17 17:24 Dose: 1,300 mg - Labs Labs: 08/14/17 06:15 08/14/17 06:15 PT 17.1 SECONDS (9.7-12.2) H 08/12/17 05:07 INR 1.5 08/12/17 05:07 APTT 42 SECONDS (21-34) H 08/12/17 05:07
[2017-08-15] MEDS: (Novolog) Insulin Aspart, Recombinant 100 u/ml 10 ml vial SC SCH ×5 (00:18→23:28)
[2017-08-15] MEDS: Ipratropium 0.02% Inhal Soln (0.5 mg/2.5 ml) UD IH SCH ×4 (01:10→19:38)
[2017-08-15 05:44] LABS: BASO % 0.2 % (0.0-2.0); EOS # 0.1 K/uL (0.0-0.7); EOS % 0.7 % (0.0-4.0); HEMOGLOBIN 8.3 g/dL (12.0-18.0); LYMPH # 0.5 K/uL (1.0-4.3); LYMPH % 3.1 % (20.0-40.0); MEAN CELL VOLUME 93.2 fL (80.0-94.0); MEAN CORPUSCULAR HEMOGLOBIN 30.2 pg (27.0-31.0); MEAN CORPUSCULAR HGB CONC 32.4 g/dL (33.0-37.0); MEAN PLATELET VOLUME 11.3 fL (7.2-11.7); MONO # 0.6 K/uL (0.0-0.8); MONO % 3.3 % (0.0-10.0); NEUT % 92.7 % (50.0-75.0); NRBC % 9.9 % (0.0-2.0); PLATELET COUNT 46 K/uL (130-400); RBC 2.75 Mil/uL (4.40-5.90); RED CELL DISTRIBUTION WIDTH 19.4 % (11.5-14.5); WHITE BLOOD COUNT 17.3 K/uL (4.8-10.8)
[2017-08-15 05:50] LABS: ARTERIAL BLOOD GAS HCO3 18.4 mmol/L (21-28); ARTERIAL BLOOD GAS O2 SAT 95.3 % (95-98); ARTERIAL BLOOD GAS PCO2 37 mm/Hg (35-45); ARTERIAL BLOOD GAS PH 7.29 (7.35-7.45); ARTERIAL BLOOD GAS PO2 66 mm/Hg (80-100); ARTERIAL BLOOD GAS TCO2 18.9 mmol/L (22-28)
[2017-08-15 06:14] LABS: ALB/GLOB RATIO 0.7 (1.0-2.1); ALBUMIN 1.7 g/dL (3.5-5.0); CALCIUM 7.8 mg/dl (8.6-10.4)
[2017-08-15 06:35] LABS: BANDS 55 % (0-2); LYMPHOCYTE 4 % (20-40); METAMYELOCYTE 1 % (0-0); MONOCYTE 3 % (0-10); MYELOCYTE 1 % (0-0); NEUTROPHIL 36 % (50-75); NUCLEATED RED BLOOD CELL 13 % (0-0); TOTAL CELLS COUNTED 100
[2017-08-15 06:36] LABS: PLATELET ESTIMATE DECREASED (NORMAL)
--- NOTE | 2017-08-15 08:29 | CP.PCM.PN ---
Subjective - Date & Time of Evaluation Date of Evaluation: 08/15/17 Time of Evaluation: 08:27 - Subjective Subjective: appears same sedated, not responsive on vent vaso still on, levo off still with AFib - VR- 120s Hg dropped- not on ESAs due to CA for dialysis now will check iron stores Objective - Vital Signs/Intake and Output Vital Signs (last 24 hours): Temp Pulse Resp BP Pulse Ox 98.8 F 92 H 19 117/54 L 83 L 08/15/17 06:00 08/15/17 07:16 08/15/17 07:16 08/15/17 07:16 08/15/17 05:46 Intake and Output: 08/15/17 08/15/17 06:59 18:59 Intake Total 1712.9 60.7 Balance 1712.9 60.7 - Medications Medications: Current Medications Ascorbic Acid (Vitamin C 500 Mg Tab) 1,000 mg PO Q8H [facility] Last Admin: 08/15/17 02:10 Dose: 1,000 mg Dextrose (Dextrose 50% Inj) 0 ml IV STAT PRN; Protocol PRN Reason: Hypoglycemia Protocol Last Admin: 08/12/17 09:45 Dose: 50 ml Hydrocortisone Sodium Succinate (Solu-Cortef) 100 mg IV Q8H [facility] Last Admin: 08/15/17 02:30 Dose: 100 mg Meropenem 500 mg/ Sodium (Chloride) 100 mls @ 100 mls/hr IVPB Q12H [facility] PRN Reason: Protocol Last Admin: 08/14/17 22:26 Dose: 100 mls/hr Norepinephrine Bitartrate 16 (mg/ Sodium Chloride) 1,016 mls @ 15.24 mls/hr IV .Q24H PRN; Protocol; 4 MCG/MIN PRN Reason: TITRATE PER MD ORDER Last Titration: 08/15/17 03:00 Dose: 0 mcg/min, 0 mls/hr Doxycycline Hyclate 100 mg/ (Sodium Chloride) 100 mls @ 100 mls/hr IVPB Q12H [facility] PRN Reason: Protocol Last Admin: 08/15/17 07:53 Dose: 100 mls/hr Fentanyl Citrate 2,500 mcg/ (Sodium Chloride) 250 mls @ 11 mls/hr IV .[id number] [facility]; 2 MCG/KG/HR PRN Reason: Protocol Last Titration: 08/15/17 05:10 Dose: 2 mcg/kg/hr, 11 mls/hr Vancomycin HCl 500 mg/ Sodium (Chloride) 100 mls @ 100 mls/hr IVPB MWF [facility] PRN Reason: Protocol Last Admin: 08/13/17 16:30 Dose: 100 mls/hr Vasopressin 40 units/ Sodium (Chloride) 42 mls @ 2.52 mls/hr IV .[id number] [facility]; 0.04 UNITS/MIN PRN Reason: Protocol Last Admin: 08/15/17 06:12 Dose: Not Given Insulin Aspart (Novolog) 0 unit SC Q6 [facility] PRN Reason: Protocol Last Admin: 08/15/17 05:08 Dose: 2 unit Ipratropium [place] (Atrovent) 0.5 mg IH RQ6 [facility] Last Admin: 08/15/17 07:14 Dose: 0.5 mg Midodrine (Proamatine) 5 mg PO TID [facility] Last Admin: 08/14/17 18:00 Dose: 5 mg Pantoprazole Sodium (Protonix Inj) 40 mg IVP DAILY [facility] Last Admin: 08/14/17 09:11 Dose: 40 mg Sodium Bicarbonate (Sodium Bicarbonate Tab) 1,300 mg PO Q6 [facility] Last Admin: 08/15/17 05:08 Dose: 1,300 mg - Labs Labs: 08/15/17 05:34 08/15/17 05:34 PT 17.1 SECONDS (9.7-12.2) H 08/12/17 05:07 INR 1.5 08/12/17 05:07 APTT 42 SECONDS (21-34) H 08/12/17 05:07 - Constitutional Appears: In Acute Distress, Chronically Ill - Head Exam Head Exam: ATRAUMATIC, NORMAL INSPECTION - Neck Exam Neck Exam: Normal Inspection. absent: Tenderness - Respiratory Exam Respiratory Exam: Rhonchi, Respiratory Distress - Cardiovascular Exam Cardiovascular Exam: Tachycardia, Irregular Rhythm - GI/Abdominal Exam GI & Abdominal Exam: Soft. absent: Tenderness - Extremities Exam Extremities Exam: Normal Inspection. 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
[2017-08-15] MEDS: Meropenem 500 MG in Sodium Chloride 0.9% 100 ML IVPB SCH ×2 (10:11→21:31)
--- NOTE | 2017-08-15 10:36 | RAD ---
HISTORY: intubated COMPARISON: 08/14/2017 FINDINGS: LUNGS: Limited evaluation due to extensive monitoring equipment overlying the thorax. Diffuse coarse interstitial pattern noted. This may reflect interstitial pulmonary edema. No focal consolidation appreciated. PLEURA: No significant pleural effusion identified, no pneumothorax apparent. CARDIOVASCULAR: Endotracheal tube, nasogastric tube and right central venous dialysis catheter are unchanged. Left IJ multi lumen central venous catheter unchanged. OSSEOUS STRUCTURES: No significant abnormalities. VISUALIZED UPPER ABDOMEN: Normal. OTHER FINDINGS: None. IMPRESSION: Limited examination. Diffuse interstitial pattern common nonspecific. Lines and tubes unchanged.
[2017-08-15 10:41] LABS: VANCOMYCIN RANDOM 11.41 ug/mL
--- NOTE | 2017-08-15 12:45 | CP.PCM.PN ---
<Neal Sandoval - Last Filed: 08/15/17 12:42> Subjective - Date & Time of Evaluation Date of Evaluation: 08/15/17 Time of Evaluation: 09:40 - Subjective Subjective: PGY2 Cardiology Progress Note for Dr. Potts Patient seen and examined at bedside in ICU. Patient remains intubated and on pressors 2/2 respiratory failure. Hx of prostate CA. Elevated Lactic acid levels. 12-point review of systems could not be obtained 2/2 medical status. Objective - Vital Signs/Intake and Output Vital Signs (last 24 hours): Temp Pulse Resp BP Pulse Ox 97.5 F L 108 H 11 L 122/65 88 L 08/15/17 12:00 08/15/17 12:24 08/15/17 12:24 08/15/17 12:24 08/15/17 09:24 Intake and Output: 08/15/17 08/15/17 06:59 18:59 Intake Total 1712.9 647.1 Balance 1712.9 647.1 - Medications Medications: Current Medications Ascorbic Acid (Vitamin C 500 Mg Tab) 1,000 mg PO Q8H [facility] Last Admin: 08/15/17 10:12 Dose: 1,000 mg Dextrose (Dextrose 50% Inj) 0 ml IV STAT PRN; Protocol PRN Reason: Hypoglycemia Protocol Last Admin: 08/12/17 09:45 Dose: 50 ml Hydrocortisone Sodium Succinate (Solu-Cortef) 100 mg IV Q8H [facility] Last Admin: 08/15/17 12:06 Dose: 100 mg Meropenem 500 mg/ Sodium (Chloride) 100 mls @ 100 mls/hr IVPB Q12H [facility] PRN Reason: Protocol Last Admin: 08/15/17 10:11 Dose: 100 mls/hr Norepinephrine Bitartrate 16 (mg/ Sodium Chloride) 1,016 mls @ 15.24 mls/hr IV .Q24H PRN; Protocol; 4 MCG/MIN PRN Reason: TITRATE PER MD ORDER Last Titration: 08/15/17 11:00 Dose: 15 mcg/min, 57.15 mls/hr Doxycycline Hyclate 100 mg/ (Sodium Chloride) 100 mls @ 100 mls/hr IVPB Q12H [facility] PRN Reason: Protocol Last Admin: 08/15/17 07:53 Dose: 100 mls/hr Fentanyl Citrate 2,500 mcg/ (Sodium Chloride) 250 mls @ 11 mls/hr IV .[id number] [facility]; 2 MCG/KG/HR PRN Reason: Protocol Last Titration: 08/15/17 05:10 Dose: 2 mcg/kg/hr, 11 mls/hr Vancomycin HCl 500 mg/ Sodium (Chloride) 100 mls @ 100 mls/hr IVPB MWF [facility] PRN Reason: Protocol Last Admin: 08/13/17 16:30 Dose: 100 mls/hr Vasopressin 40 units/ Sodium (Chloride) 42 mls @ 2.52 mls/hr IV .[id number] [facility]; 0.04 UNITS/MIN PRN Reason: Protocol Last Admin: 08/15/17 06:12 Dose: Not Given Insulin Aspart (Novolog) 0 unit SC Q6 [facility] PRN Reason: Protocol Last Admin: 08/15/17 12:05 Dose: Not Given Ipratropium [place] (Atrovent) 0.5 mg IH RQ6 [facility] Last Admin: 08/15/17 07:14 Dose: 0.5 mg Midodrine (Proamatine) 5 mg PO TID [facility] Last Admin: 08/15/17 10:12 Dose: 5 mg Pantoprazole Sodium (Protonix Inj) 40 mg IVP DAILY [facility] Last Admin: 08/15/17 10:12 Dose: 40 mg Sodium Bicarbonate (Sodium Bicarbonate Tab) 1,300 mg PO Q6 [facility] Last Admin: 08/15/17 12:06 Dose: 1,300 mg - Labs Labs: 08/15/17 05:34 08/15/17 05:34 PT 17.1 SECONDS (9.7-12.2) H 08/12/17 05:07 INR 1.5 08/12/17 05:07 APTT 42 SECONDS (21-34) H 08/12/17 05:07 - Additional Findings Additional findings: - Constitutional Appears: In Acute Distress, Chronically Ill - Head Exam Head Exam: ATRAUMATIC, NORMAL INSPECTION - Neck Exam Neck Exam: Normal Inspection. absent: Tenderness - Respiratory Exam Respiratory Exam: Rhonchi, Respiratory Distress - Cardiovascular Exam Cardiovascular Exam: Tachycardia, Irregular Rhythm, +S1, +S2 - GI/Abdominal Exam GI & Abdominal Exam: Soft. absent: Tenderness - Extremities Exam Extremities Exam: Normal Inspection. absent: Tenderness - Neurological Exam Neurological Exam: Altered (intubated) - Skin Skin Exam: Dry, Warm Assessment and Plan - Assessment and Plan (Free Text) Assessment: Respiratory failure -Intubated and on vent support -Lactic acid level elevated, 4.4 -poor prognosis CHF (congestive heart failure) - management as per ICU team. - patient currently on vasopressin - poor prognosis Atrial fibrillation - No anticoagulation 2/2 high risk GI bleed. Case Discussed with Dr. Delroy Sandoval, PGY2 <Jonathan Potts - Last Filed: 08/16/17 10:26> Objective - Vital Signs/Intake and Output Vital Signs (last 24 hours): Temp Pulse Resp BP Pulse Ox 99 F 85 24 165/80 H 77 L 08/16/17 08:00 08/16/17 09:00 08/16/17 09:00 08/16/17 08:55 08/15/17 22:02 Intake and Output: 08/16/17 08/16/17 06:59 18:59 Intake Total 1519.86 484.4 Balance 1519.86 484.4 - Medications Medications: Current Medications Artificial Tears (Lacri-Lube) 0 gm OU Q4 [facility] Last Admin: 08/16/17 07:44 Dose: 3.5 gm Ascorbic Acid (Vitamin C 500 Mg Tab) 1,000 mg PO Q8H [facility] Last Admin: 08/16/17 02:18 Dose: 1,000 mg Dextrose (Dextrose 50% Inj) 0 ml IV STAT PRN; Protocol PRN Reason: Hypoglycemia Protocol Last Admin: 08/12/17 09:45 Dose: 50 ml Hydrocortisone Sodium Succinate (Solu-Cortef) 100 mg IV Q8H [facility] Last Admin: 08/16/17 02:48 Dose: 100 mg Doxycycline Hyclate 100 mg/ (Sodium Chloride) 100 mls @ 100 mls/hr IVPB Q12H [facility] PRN Reason: Protocol Last Admin: 08/16/17 08:00 Dose: 100 mls/hr Vancomycin HCl 500 mg/ Sodium (Chloride) 100 mls @ 100 mls/hr IVPB MWF [facility] PRN Reason: Protocol Last Admin: 08/15/17 21:30 Dose: 100 mls/hr Vasopressin 40 units/ Sodium (Chloride) 42 mls @ 2.52 mls/hr IV .[id number] [facility]; 0.04 UNITS/MIN PRN Reason: Protocol Last Titration: 08/16/17 04:15 Dose: 0.03 units/min, 1.89 mls/hr Sodium Bicarbonate 150 meq/ (Dextrose) 1,150 mls @ 100 mls/hr IV .[id number] [facility] Last Admin: 08/16/17 08:30 Dose: 100 mls/hr Fentanyl Citrate 2,500 mcg/ (Sodium Chloride) 250 mls @ 16.57 mls/hr IV .[id number] [facility]; 2.5 MCG/KG/HR PRN Reason: Protocol Last Admin: 08/16/17 07:41 Dose: Not Given Meropenem 500 mg/ Sodium (Chloride) 100 mls @ 100 mls/hr IVPB Q24H [facility] PRN Reason: Protocol Insulin Aspart (Novolog) 0 unit SC Q6 [facility] PRN Reason: Protocol Last Admin: 08/16/17 05:56 Dose: 1 unit Ipratropium [place] (Atrovent) 0.5 mg IH RQ6 [facility] Last Admin: 08/16/17 07:11 Dose: 0.5 mg Midodrine (Proamatine) 5 mg PO TID [facility] Last Admin: 08/15/17 17:31 Dose: 5 mg Pantoprazole Sodium (Protonix Inj) 40 mg IVP DAILY [facility] Last Admin: 08/15/17 10:12 Dose: 40 mg Sodium Bicarbonate (Sodium Bicarbonate Tab) 1,300 mg PO Q6 [facility] - Labs Labs: 08/16/17 06:41 08/16/17 06:41 PT 17.1 SECONDS (9.7-12.2) H 08/12/17 05:07 INR 1.5 08/12/17 05:07 APTT 42 SECONDS (21-34) H 08/12/17 05:07 Assessment and Plan - Assessment and Plan (Free Text) Plan: Patient seen and evaluated personally by [place] Plan of care d/w the medical doctor md/medical director and royce mehta
[2017-08-15] MEDS: NOREPINEPHRINE IV PRN (13:00)
[2017-08-15] MEDS: SODIUM CHLORIDE 0.9% IV PRN (13:00)
--- NOTE | 2017-08-15 14:56 | CP.PCM.PN ---
Subjective - Date & Time of Evaluation Date of Evaluation: 08/15/17 Time of Evaluation: 13:35 - Subjective Subjective: the patient seen and examined in the intensive care unit during hemodialysis On ventilatory support On vasopressin drip Tolerating feeding Poorly responsive Afebrile On IV antibiotics Objective - Vital Signs/Intake and Output Vital Signs (last 24 hours): Temp Pulse Resp BP Pulse Ox 97.5 F L 110 H 16 157/79 H 88 L 08/15/17 12:40 08/15/17 13:00 08/15/17 13:00 08/15/17 13:00 08/15/17 09:24 Intake and Output: 08/15/17 08/15/17 06:59 18:59 Intake Total 1712.9 937.7 Balance 1712.9 937.7 - Medications Medications: Current Medications Ascorbic Acid (Vitamin C 500 Mg Tab) 1,000 mg PO Q8H [facility] Last Admin: 08/15/17 10:12 Dose: 1,000 mg Dextrose (Dextrose 50% Inj) 0 ml IV STAT PRN; Protocol PRN Reason: Hypoglycemia Protocol Last Admin: 08/12/17 09:45 Dose: 50 ml Hydrocortisone Sodium Succinate (Solu-Cortef) 100 mg IV Q8H [facility] Last Admin: 08/15/17 12:06 Dose: 100 mg Meropenem 500 mg/ Sodium (Chloride) 100 mls @ 100 mls/hr IVPB Q12H [facility] PRN Reason: Protocol Last Admin: 08/15/17 10:11 Dose: 100 mls/hr Norepinephrine Bitartrate 16 (mg/ Sodium Chloride) 1,016 mls @ 15.24 mls/hr IV .Q24H PRN; Protocol; 4 MCG/MIN PRN Reason: TITRATE PER MD ORDER Last Admin: 08/15/17 13:00 Dose: 10 mcg/min, 38.1 mls/hr Doxycycline Hyclate 100 mg/ (Sodium Chloride) 100 mls @ 100 mls/hr IVPB Q12H [facility] PRN Reason: Protocol Last Admin: 08/15/17 07:53 Dose: 100 mls/hr Fentanyl Citrate 2,500 mcg/ (Sodium Chloride) 250 mls @ 11 mls/hr IV .[id number] [facility]; 2 MCG/KG/HR PRN Reason: Protocol Last Titration: 08/15/17 05:10 Dose: 2 mcg/kg/hr, 11 mls/hr Vancomycin HCl 500 mg/ Sodium (Chloride) 100 mls @ 100 mls/hr IVPB MWF [facility] PRN Reason: Protocol Last Admin: 08/13/17 16:30 Dose: 100 mls/hr Vasopressin 40 units/ Sodium (Chloride) 42 mls @ 2.52 mls/hr IV .[id number] [facility]; 0.04 UNITS/MIN PRN Reason: Protocol Last Admin: 08/15/17 06:12 Dose: Not Given Insulin Aspart (Novolog) 0 unit SC Q6 [facility] PRN Reason: Protocol Last Admin: 08/15/17 12:05 Dose: Not Given Ipratropium [place] (Atrovent) 0.5 mg IH RQ6 [facility] Last Admin: 08/15/17 14:03 Dose: 0.5 mg Midodrine (Proamatine) 5 mg PO TID [facility] Last Admin: 08/15/17 13:28 Dose: 5 mg Pantoprazole Sodium (Protonix Inj) 40 mg IVP DAILY [facility] Last Admin: 08/15/17 10:12 Dose: 40 mg Sodium Bicarbonate (Sodium Bicarbonate Tab) 1,300 mg PO Q6 [facility] Last Admin: 08/15/17 12:06 Dose: 1,300 mg - Labs Labs: 08/15/17 05:34 08/15/17 05:34 PT 17.1 SECONDS (9.7-12.2) H 08/12/17 05:07 INR 1.5 08/12/17 05:07 APTT 42 SECONDS (21-34) H 08/12/17 05:07 - Head Exam Head Exam: ATRAUMATIC, NORMOCEPHALIC - ENT Exam ENT Exam: Mucous Membranes Moist - Neck Exam Neck Exam: Normal Inspection - Respiratory Exam Respiratory Exam: Decreased Breath Sounds - GI/Abdominal Exam GI & Abdominal Exam: Soft, Normal Bowel Sounds Assessment and Plan (1) Respiratory failure Assessment & Plan: continue ventilatory support IV antibiotics Hemodialysis IV steroids Followup ABG and chest x-ray Increase feeding as tolerated Status: Acute (2) Septic shock Status: Acute (3) Atrial fibrillation with RVR Status: Acute (4) ESRD (end stage renal disease) Status: Acute
--- NOTE | 2017-08-15 15:44 | CP.CCUPN ---
<Sonia Michaud - Last Filed: 08/15/17 16:06> CCU Subjective - Physician Review Subjective (Free Text): 08/15/17 10:00 Patient seen and examined at bedside. Per nursing no acute events overnight. Patient is intubated and sedated. Not responding to verbal stimuli, does not follow commands. ROS not obtained. For hemodialysis today. CCU Objective - Vital Signs / Intake & Output Vital Signs (Last 4 hours): Vital Signs Temp Pulse Pulse Resp BP BP Pulse Ox 08/15/17 15:00 109 H 16 96 08/15/17 14:57 104 H 20 109/80 98 08/15/17 14:30 107 H 14 94 L 08/15/17 14:00 107 H 16 95 08/15/17 13:57 103 H 14 118/80 96 08/15/17 13:30 117 H 15 98 08/15/17 13:00 110 H 16 157/79 H 08/15/17 12:57 108 H 11 L 157/79 H 08/15/17 12:55 114 H 9 L 140/83 08/15/17 12:40 97.5 F L 118 H 25 H 106/49 L 08/15/17 12:39 101 H 12 106/49 L 08/15/17 12:30 108 H 12 08/15/17 12:24 108 H 11 L 122/65 08/15/17 12:08 101 H 13 120/57 L 120/57 L 08/15/17 12:00 97.5 F L 99 H 11 L 08/15/17 11:54 102 H 17 116/63 Intake and Output (Last 8hrs): Intake & Output 08/15/17 08/15/17 08/15/17 06:59 14:59 22:59 Intake Total 790.8 1086.1 120.7 Balance 790.8 1086.1 120.7 Weight 64.229 kg Intake: IV 174.5 56.5 26 Intake, IV Amount 286.3 494.6 39.7 Right Distal Port 19.2 2.4 Right Distal Port Femoral 100.7 Right Medial Port Femoral 100 Right Medial Port 200 Internal Jugular Right Proximal Port 66.4 8.3 Femoral Right Proximal Port 16.8 2.4 Internal Jugular Rt Proximal Port IJ "B" 190.1 26.3 Rt Proximal Port Internal 77 11 Jugular "A" Oral 30 Tube Feeding 300 415 55 Other 120 Other: # Bowel Movements 1 - Physical Exam Head: Positive for: Atraumatic, Normocephalic Pupils: Positive for: PERRL Extroacular Muscles: Positive for: EOMI Conjunctiva: Positive for: Normal Mouth: Positive for: Dry, Other (ETT ) Nose (External): Positive for: Atraumatic Neck: Negative for: JVD Respiratory/Chest: Positive for: Decreased Breath Sounds, Rales Cardiovascular: Positive for: Irregular Rhythm, Tachycardic Abdomen: Positive for: Normal Bowel Sounds. Negative for: Distention Upper Extremity: Positive for: Normal Inspection Lower Extremity: Positive for: Normal Inspection, Other (+femoral line ) Skin: Positive for: Warm, Dry Psychiatric: Negative for: Alert, Oriented x 3 - Medications Active Medications: Active Medications Generic Name Dose Route Start Last Admin Trade Name Freq PRN Reason Stop Dose Admin Ascorbic Acid 1,000 mg 08/13/17 10:00 08/15/17 10:12 Vitamin C 500 Mg Tab PO 1,000 mg Q8H CORINA Administration Dextrose 0 ml 08/11/17 17:18 08/12/17 09:45 Dextrose 50% Inj IV 50 ml STAT PRN Administration Hypoglycemia Protocol Protocol Hydrocortisone Sodium Succinate 100 mg 08/13/17 03:30 08/15/17 12:06 Solu-Cortef IV 100 mg Q8H CORINA Administration Meropenem 500 mg/ Sodium 100 mls @ 100 mls/hr 08/12/17 22:00 08/15/17 10:11 Chloride IVPB 100 mls/hr Q12H CORINA Administration Protocol Norepinephrine Bitartrate 16 1,016 mls @ 15.24 mls/hr 08/12/17 18:30 15:00 mg/ Sodium Chloride IV 7 mcg/min .Q24H PRN 26.67 mls/hr TITRATE PER MD ORDER Titration Protocol 4 MCG/MIN Doxycycline Hyclate 100 mg/ 100 mls @ 100 mls/hr 08/12/17 20:00 08/15/17 07: 53 Sodium Chloride IVPB 100 mls/hr Q12H CORINA Administration Protocol Fentanyl Citrate 2,500 mcg/ 250 mls @ 11 mls/hr 08/12/17 19:45 08/15/17 05:10 Sodium Chloride IV 2 mcg/kg/hr .[id number] CORINA 11 mls/hr Protocol Titration 2 MCG/KG/HR Vancomycin HCl 500 mg/ Sodium 100 mls @ 100 mls/hr 08/13/17 17:00 08/13/17 16 :30 Chloride IVPB 100 mls/hr MWF CORINA Administration Protocol Vasopressin 40 units/ Sodium 42 mls @ 2.52 mls/hr 08/14/17 13:15 08/15/17 06: 12 Chloride IV Not Given .[id number] CORINA Protocol 0.04 UNITS/MIN Insulin Aspart 0 unit 08/12/17 19:30 08/15/17 12:05 Novolog SC Not Given Q6 [facility] Protocol Ipratropium [place] 0.5 mg 08/12/17 19:45 08/15/17 14:03 Atrovent IH 0.5 mg RQ6 CORINA Administration Midodrine 5 mg 08/14/17 10:00 08/15/17 13:28 Proamatine PO 5 mg TID CORINA Administration Pantoprazole Sodium 40 mg 08/12/17 10:00 08/15/17 10:12 Protonix Inj IVP 40 mg DAILY CORINA Administration Sodium Bicarbonate 1,300 mg 08/14/17 10:50 08/15/17 12:06 Sodium Bicarbonate Tab PO 1,300 mg Q6 CORINA Administration - Patient Studies Lab Studies: Microbiology Studies 08/12/17 19:59 Gram Stain - Final [facility] Sputum Culture - Final Yeast Species 08/11/17 19:00 Blood Culture - Preliminary Blood-Venous NO GROWTH AFTER 3 DAYS 08/14/17 11:00 Gram Stain - Final [facility] Lab Studies 08/15/17 08/15/17 08/15/17 Range/Units 11:43 10:05 10:05 WBC (4.8-10.8) K/uL RBC (4.40-5.90) Mil/uL Hgb (12.0-18.0) g/dL Hct (35.0-51.0) % MCV (80.0-94.0) fL MCH (27.0-31.0) pg MCHC (33.0-37.0) g/dL RDW (11.5-14.5) % Plt Count (130-400) K/uL MPV (7.2-11.7) fL Neut % (Auto) (50.0-75.0) % Lymph % (Auto) (20.0-40.0) % [place] % (Auto) (0.0-10.0) % Eos % (Auto) (0.0-4.0) % Baso % (Auto) (0.0-2.0) % Neut # (Auto) (1.8-7.0) K/uL Lymph # (Auto) (1.0-4.3) K/uL [place] # (Auto) (0.0-0.8) K/uL Eos # (Auto) (0.0-0.7) K/uL Baso # (Auto) (0.0-0.2) K/uL Neutrophils % (Manual) (50-75) % Band Neutrophils % (0-2) % Lymphocytes % (Manual) (20-40) % Monocytes % (Manual) (0-10) % Metamyelocytes % (0-0) % Myelocytes % (0-0) % Nucleated RBC % (0-0) % Platelet Estimate (NORMAL) Puncture Site pCO2 (35-45) mm/Hg pO2 (80-100) mm/Hg HCO3 (21-28) mmol/L ABG pH (7.35-7.45) ABG Total CO2 (22-28) mmol/L ABG O2 Saturation (95-98) % ABG Base Excess (-2.0-3.0) mmol/L [place] Test ABG Potassium (3.6-5.2) mmol/L A-a O2 Difference mm/Hg Respiratory Index Sodium (132-148) mmol/l Chloride (98-107) mmol/L Glucose (75-110) mg/dl Lactate (0.7-2.1) mmol/L Vent Mode Mechanical Rate FiO2 % PEEP Crit Value Called To Crit Value Called By Crit Value Read Back Blood Gas Notified Time Potassium (3.6-5.2) mmol/L Carbon Dioxide (22-30) mmol/L Anion Gap (10-20) BUN (9-20) mg/dL Creatinine (0.8-1.5) mg/dL Est GFR ( Amer) Est GFR (Non-Af Amer) POC Glucose (mg/dL) 117 H (65-110) mg/dL Random Glucose (75-110) mg/dL Lactic Acid (0.7-2.1) mmol/L Calcium (8.6-10.4) mg/dl Phosphorus (2.5-4.5) mg/dL Magnesium (1.6-2.3) mg/dL % Saturation 66 H (20-55) Ferritin > 08803.0 ng/mL Total Bilirubin (0.2-1.3) mg/dL AST (17-59) U/L ALT (21-72) U/L Alkaline Phosphatase (38-126) U/L Total Protein (6.3-8.3) g/dL Albumin (3.5-5.0) g/dL Globulin (2.2-3.9) gm/dL Albumin/Globulin Ratio (1.0-2.1) Arterial Blood Potassium (3.6-5.2) mmol/L Random Gentamicin ug/mL Random Vancomycin ug/mL Mycoplasma pneumon IgM (<770) U/mL 08/15/17 08/15/17 08/15/17 Range/Units 08:23 05:34 05:34 WBC (4.8-10.8) K/uL RBC (4.40-5.90) Mil/uL Hgb (12.0-18.0) g/dL Hct (35.0-51.0) % MCV (80.0-94.0) fL MCH (27.0-31.0) pg MCHC (33.0-37.0) g/dL RDW (11.5-14.5) % Plt Count (130-400) K/uL MPV (7.2-11.7) fL Neut % (Auto) (50.0-75.0) % Lymph % (Auto) (20.0-40.0) % [place] % (Auto) (0.0-10.0) % Eos % (Auto) (0.0-4.0) % Baso % (Auto) (0.0-2.0) % Neut # (Auto) (1.8-7.0) K/uL Lymph # (Auto) (1.0-4.3) K/uL [place] # (Auto) (0.0-0.8) K/uL Eos # (Auto) (0.0-0.7) K/uL Baso # (Auto) (0.0-0.2) K/uL Neutrophils % (Manual) (50-75) % Band Neutrophils % (0-2) % Lymphocytes % (Manual) (20-40) % Monocytes % (Manual) (0-10) % Metamyelocytes % (0-0) % Myelocytes % (0-0) % Nucleated RBC % (0-0) % Platelet Estimate (NORMAL) Puncture Site pCO2 (35-45) mm/Hg pO2 (80-100) mm/Hg HCO3 (21-28) mmol/L ABG pH (7.35-7.45) ABG Total CO2 (22-28) mmol/L ABG O2 Saturation (95-98) % ABG Base Excess (-2.0-3.0) mmol/L [place] Test ABG Potassium (3.6-5.2) mmol/L A-a O2 Difference mm/Hg Respiratory Index Sodium 139 (132-148) mmol/l Chloride 104 (98-107) mmol/L Glucose (75-110) mg/dl Lactate (0.7-2.1) mmol/L Vent Mode Mechanical Rate FiO2 % PEEP Crit Value Called To Crit Value Called By Crit Value Read Back Blood Gas Notified Time Potassium 4.1 (3.6-5.2) mmol/L Carbon Dioxide 20 L (22-30) mmol/L Anion Gap 19 (10-20) BUN 59 H (9-20) mg/dL Creatinine 4.1 H (0.8-1.5) mg/dL Est GFR ( Amer) 17 Est GFR (Non-Af Amer) 14 POC Glucose (mg/dL) (65-110) mg/dL Random Glucose 169 H (75-110) mg/dL Lactic Acid 4.0 H* (0.7-2.1) mmol/L Calcium 7.8 L (8.6-10.4) mg/dl Phosphorus 5.5 H (2.5-4.5) mg/dL Magnesium 2.0 (1.6-2.3) mg/dL % Saturation (20-55) Ferritin ng/mL Total Bilirubin 8.0 H (0.2-1.3) mg/dL AST 648 H D (17-59) U/L ALT 365 H D (21-72) U/L Alkaline Phosphatase 194 H (38-126) U/L Total Protein 4.3 L (6.3-8.3) g/dL Albumin 1.7 L D (3.5-5.0) g/dL Globulin 2.6 (2.2-3.9) gm/dL Albumin/Globulin Ratio 0.7 L (1.0-2.1) Arterial Blood Potassium (3.6-5.2) mmol/L Random Gentamicin 2.2 ug/mL Random Vancomycin 11.41 ug/mL Mycoplasma pneumon IgM (<770) U/mL 08/15/17 08/15/17 08/15/17 Range/Units 05:34 05:26 05:03 WBC 17.3 H (4.8-10.8) K/uL RBC 2.75 L (4.40-5.90) Mil/uL Hgb 8.3 L (12.0-18.0) g/dL Hct 25.6 L (35.0-51.0) % MCV 93.2 (80.0-94.0) fL MCH 30.2 (27.0-31.0) pg MCHC 32.4 L (33.0-37.0) g/dL RDW 19.4 H (11.5-14.5) % Plt Count 46 L D (130-400) K/uL MPV 11.3 (7.2-11.7) fL Neut % (Auto) 92.7 H (50.0-75.0) % Lymph % (Auto) 3.1 L (20.0-40.0) % [place] % (Auto) 3.3 (0.0-10.0) % Eos % (Auto) 0.7 (0.0-4.0) % Baso % (Auto) 0.2 (0.0-2.0) % Neut # (Auto) 16.0 H (1.8-7.0) K/uL Lymph # (Auto) 0.5 L (1.0-4.3) K/uL [place] # (Auto) 0.6 (0.0-0.8) K/uL Eos # (Auto) 0.1 (0.0-0.7) K/uL Baso # (Auto) 0.0 (0.0-0.2) K/uL Neutrophils % (Manual) 36 L (50-75) % Band Neutrophils % 55 H* (0-2) % Lymphocytes % (Manual) 4 L (20-40) % Monocytes % (Manual) 3 (0-10) % Metamyelocytes % 1 H (0-0) % Myelocytes % 1 H (0-0) % Nucleated RBC % 13 H (0-0) % Platelet Estimate Decreased L (NORMAL) Puncture Site L brac pCO2 37 (35-45) mm/Hg pO2 66 L (80-100) mm/Hg HCO3 18.4 L (21-28) mmol/L ABG pH 7.29 L (7.35-7.45) ABG Total CO2 18.9 L (22-28) mmol/L ABG O2 Saturation 95.3 (95-98) % ABG Base Excess -8.1 L (-2.0-3.0) mmol/L [place]co Test Na ABG Potassium 3.9 (3.6-5.2) mmol/L A-a O2 Difference 601.0 mm/Hg Respiratory Index 9.1 Sodium 138.0 (132-148) mmol/l Chloride 105.0 (98-107) mmol/L Glucose 202 H (75-110) mg/dl Lactate 4.4 H* (0.7-2.1) mmol/L Vent Mode A/c pc Mechanical Rate 22 FiO2 100.0 % PEEP 5 Crit Value Called To Felton ayers [employer] Crit Value Called By Jamia cole rt Crit Value Read Back Y Blood Gas Notified Time 548 Potassium (3.6-5.2) mmol/L Carbon Dioxide (22-30) mmol/L Anion Gap (10-20) BUN (9-20) mg/dL Creatinine (0.8-1.5) mg/dL Est GFR ( Amer) Est GFR (Non-Af Amer) POC Glucose (mg/dL) 205 H (65-110) mg/dL Random Glucose (75-110) mg/dL Lactic Acid (0.7-2.1) mmol/L Calcium (8.6-10.4) mg/dl Phosphorus (2.5-4.5) mg/dL Magnesium (1.6-2.3) mg/dL % Saturation (20-55) Ferritin ng/mL Total Bilirubin (0.2-1.3) mg/dL AST (17-59) U/L ALT (21-72) U/L Alkaline Phosphatase (38-126) U/L Total Protein (6.3-8.3) g/dL Albumin (3.5-5.0) g/dL Globulin (2.2-3.9) gm/dL Albumin/Globulin Ratio (1.0-2.1) Arterial Blood Potassium 3.9 (3.6-5.2) mmol/L Random Gentamicin ug/mL Random Vancomycin ug/mL Mycoplasma pneumon IgM (<770) U/mL 08/14/17 08/14/17 08/14/17 Range/Units 23:20 17:26 16:46 WBC (4.8-10.8) K/uL RBC (4.40-5.90) Mil/uL Hgb (12.0-18.0) g/dL Hct (35.0-51.0) % MCV (80.0-94.0) fL MCH (27.0-31.0) pg MCHC (33.0-37.0) g/dL RDW (11.5-14.5) % Plt Count (130-400) K/uL MPV (7.2-11.7) fL Neut % (Auto) (50.0-75.0) % Lymph % (Auto) (20.0-40.0) % [place] % (Auto) (0.0-10.0) % Eos % (Auto) (0.0-4.0) % Baso % (Auto) (0.0-2.0) % Neut # (Auto) (1.8-7.0) K/uL Lymph # (Auto) (1.0-4.3) K/uL [place] # (Auto) (0.0-0.8) K/uL Eos # (Auto) (0.0-0.7) K/uL Baso # (Auto) (0.0-0.2) K/uL Neutrophils % (Manual) (50-75) % Band Neutrophils % (0-2) % Lymphocytes % (Manual) (20-40) % Monocytes % (Manual) (0-10) % Metamyelocytes % (0-0) % Myelocytes % (0-0) % Nucleated RBC % (0-0) % Platelet Estimate (NORMAL) Puncture Site Venous pCO2 24 L (35-45) mm/Hg pO2 79 L (80-100) mm/Hg HCO3 16.0 L (21-28) mmol/L ABG pH 7.33 L (7.35-7.45) ABG Total CO2 13.4 L (22-28) mmol/L ABG O2 Saturation 98.8 H (95-98) % ABG Base Excess -11.3 L (-2.0-3.0) mmol/L P[place]co Test Na ABG Potassium 2.6 L (3.6-5.2) mmol/L A-a O2 Difference 604.0 mm/Hg Respiratory Index 7.6 Sodium 143.0 (132-148) mmol/l Chloride 116.0 H (98-107) mmol/L Glucose 139 H (75-110) mg/dl Lactate 2.9 H (0.7-2.1) mmol/L Vent Mode Simv/pc Mechanical Rate 22 FiO2 100.0 % PEEP 5 Crit Value Called To Crit Value Called By Crit Value Read Back Blood Gas Notified Time Potassium (3.6-5.2) mmol/L Carbon Dioxide (22-30) mmol/L Anion Gap (10-20) BUN (9-20) mg/dL Creatinine (0.8-1.5) mg/dL Est GFR ( Amer) Est GFR (Non-Af Amer) POC Glucose (mg/dL) 185 H 204 H (65-110) mg/dL Random Glucose (75-110) mg/dL Lactic Acid (0.7-2.1) mmol/L Calcium (8.6-10.4) mg/dl Phosphorus (2.5-4.5) mg/dL Magnesium (1.6-2.3) mg/dL % Saturation (20-55) Ferritin ng/mL Total Bilirubin (0.2-1.3) mg/dL AST (17-59) U/L ALT (21-72) U/L Alkaline Phosphatase (38-126) U/L Total Protein (6.3-8.3) g/dL Albumin (3.5-5.0) g/dL Globulin (2.2-3.9) gm/dL Albumin/Globulin Ratio (1.0-2.1) Arterial Blood Potassium 2.6 L (3.6-5.2) mmol/L Random Gentamicin ug/mL Random Vancomycin ug/mL Mycoplasma pneumon IgM (<770) U/mL 08/12/17 Range/Units 15:32 WBC (4.8-10.8) K/uL RBC (4.40-5.90) Mil/uL Hgb (12.0-18.0) g/dL Hct (35.0-51.0) % MCV (80.0-94.0) fL MCH (27.0-31.0) pg MCHC (33.0-37.0) g/dL RDW (11.5-14.5) % Plt Count (130-400) K/uL MPV (7.2-11.7) fL Neut % (Auto) (50.0-75.0) % Lymph % (Auto) (20.0-40.0) % [place] % (Auto) (0.0-10.0) % Eos % (Auto) (0.0-4.0) % Baso % (Auto) (0.0-2.0) % Neut # (Auto) (1.8-7.0) K/uL Lymph # (Auto) (1.0-4.3) K/uL [place] # (Auto) (0.0-0.8) K/uL Eos # (Auto) (0.0-0.7) K/uL Baso # (Auto) (0.0-0.2) K/uL Neutrophils % (Manual) (50-75) % Band Neutrophils % (0-2) % Lymphocytes % (Manual) (20-40) % Monocytes % (Manual) (0-10) % Metamyelocytes % (0-0) % Myelocytes % (0-0) % Nucleated RBC % (0-0) % Platelet Estimate (NORMAL) Puncture Site pCO2 (35-45) mm/Hg pO2 (80-100) mm/Hg HCO3 (21-28) mmol/L ABG pH (7.35-7.45) ABG Total CO2 (22-28) mmol/L ABG O2 Saturation (95-98) % ABG Base Excess (-2.0-3.0) mmol/L [place]co Test ABG Potassium (3.6-5.2) mmol/L A-a O2 Difference mm/Hg Respiratory Index Sodium (132-148) mmol/l Chloride (98-107) mmol/L Glucose (75-110) mg/dl Lactate (0.7-2.1) mmol/L Vent Mode Mechanical Rate FiO2 % PEEP Crit Value Called To Crit Value Called By Crit Value Read Back Blood Gas Notified Time Potassium (3.6-5.2) mmol/L Carbon Dioxide (22-30) mmol/L Anion Gap (10-20) BUN (9-20) mg/dL Creatinine (0.8-1.5) mg/dL Est GFR ( Amer) Est GFR (Non-Af Amer) POC Glucose (mg/dL) (65-110) mg/dL Random Glucose (75-110) mg/dL Lactic Acid (0.7-2.1) mmol/L Calcium (8.6-10.4) mg/dl Phosphorus (2.5-4.5) mg/dL Magnesium (1.6-2.3) mg/dL % Saturation (20-55) Ferritin ng/mL Total Bilirubin (0.2-1.3) mg/dL AST (17-59) U/L ALT (21-72) U/L Alkaline Phosphatase (38-126) U/L Total Protein (6.3-8.3) g/dL Albumin (3.5-5.0) g/dL Globulin (2.2-3.9) gm/dL Albumin/Globulin Ratio (1.0-2.1) Arterial Blood Potassium (3.6-5.2) mmol/L Random Gentamicin ug/mL Random Vancomycin ug/mL Mycoplasma pneumon IgM 35 (<770) U/mL Laboratory Results - last 24 hr 08/12/17 08/14/17 08/14/17 15:32 16:46 17:26 WBC RBC Hgb Hct MCV MCH MCHC RDW Plt Count MPV Neut % (Auto) Lymph % (Auto) [place] % (Auto) Eos % (Auto) Baso % (Auto) Neut # (Auto) Lymph # (Auto) [place] # (Auto) Eos # (Auto) Baso # (Auto) Neutrophils % (Manual) Band Neutrophils % Lymphocytes % (Manual) Monocytes % (Manual) Metamyelocytes % Myelocytes % Nucleated RBC % Platelet Estimate Puncture Site Venous pCO2 24 L pO2 79 L HCO3 16.0 L ABG pH 7.33 L ABG Total CO2 13.4 L ABG O2 Saturation 98.8 H ABG Base Excess -11.3 L [place] Test Na ABG Potassium 2.6 L A-a O2 Difference 604.0 Respiratory Index 7.6 Sodium 143.0 Chloride 116.0 H Glucose 139 H Lactate 2.9 H Vent Mode Simv/pc Mechanical Rate 22 FiO2 100.0 PEEP 5 Crit Value Called To Crit Value Called By Crit Value Read Back Blood Gas Notified Time Potassium Carbon Dioxide Anion Gap BUN Creatinine Est GFR ( Amer) Est GFR (Non-Af Amer) POC Glucose (mg/dL) 204 H Random Glucose Lactic Acid Calcium Phosphorus Magnesium % Saturation Ferritin Total Bilirubin AST ALT Alkaline Phosphatase Total Protein Albumin Globulin Albumin/Globulin Ratio Arterial Blood Potassium 2.6 L Random Gentamicin Random Vancomycin Mycoplasma pneumon IgM 35 08/14/17 08/15/17 08/15/17 23:20 05:03 05:26 WBC RBC Hgb Hct MCV MCH MCHC RDW Plt Count MPV Neut % (Auto) Lymph % (Auto) [place] % (Auto) Eos % (Auto) Baso % (Auto) Neut # (Auto) Lymph # (Auto) [place] # (Auto) Eos # (Auto) Baso # (Auto) Neutrophils % (Manual) Band Neutrophils % Lymphocytes % (Manual) Monocytes % (Manual) Metamyelocytes % Myelocytes % Nucleated RBC % Platelet Estimate Puncture Site L brac pCO2 37 pO2 66 L HCO3 18.4 L ABG pH 7.29 L ABG Total CO2 18.9 L ABG O2 Saturation 95.3 ABG Base Excess -8.1 L [place] Test Na ABG Potassium 3.9 A-a O2 Difference 601.0 Respiratory Index 9.1 Sodium 138.0 Chloride 105.0 Glucose 202 H Lactate 4.4 H* Vent Mode A/c pc Mechanical Rate 22 FiO2 100.0 PEEP 5 Crit Value Called To Felton ayers [employer] Crit Value Called By Jamia cole rt Crit Value Read Back Y Blood Gas Notified Time 548 Potassium Carbon Dioxide Anion Gap BUN Creatinine Est GFR ( Amer) Est GFR (Non-Af Amer) POC Glucose (mg/dL) 185 H 205 H Random Glucose Lactic Acid Calcium Phosphorus Magnesium % Saturation Ferritin Total Bilirubin AST ALT Alkaline Phosphatase Total Protein Albumin Globulin Albumin/Globulin Ratio Arterial Blood Potassium 3.9 Random Gentamicin Random Vancomycin Mycoplasma pneumon IgM 08/15/17 08/15/17 08/15/17 05:34 05:34 05:34 WBC 17.3 H RBC 2.75 L Hgb 8.3 L Hct 25.6 L MCV 93.2 MCH 30.2 MCHC 32.4 L RDW 19.4 H Plt Count 46 L D MPV 11.3 Neut % (Auto) 92.7 H Lymph % (Auto) 3.1 L [place] % (Auto) 3.3 Eos % (Auto) 0.7 Baso % (Auto) 0.2 Neut # (Auto) 16.0 H Lymph # (Auto) 0.5 L [place] # (Auto) 0.6 Eos # (Auto) 0.1 Baso # (Auto) 0.0 Neutrophils % (Manual) 36 L Band Neutrophils % 55 H* Lymphocytes % (Manual) 4 L Monocytes % (Manual) 3 Metamyelocytes % 1 H Myelocytes % 1 H Nucleated RBC % 13 H Platelet Estimate Decreased L Puncture Site pCO2 pO2 HCO3 ABG pH ABG Total CO2 ABG O2 Saturation ABG Base Excess [place] Test ABG Potassium A-a O2 Difference Respiratory Index Sodium 139 Chloride 104 Glucose Lactate Vent Mode Mechanical Rate FiO2 PEEP Crit Value Called To Crit Value Called By Crit Value Read Back Blood Gas Notified Time Potassium 4.1 Carbon Dioxide 20 L Anion Gap 19 BUN 59 H Creatinine 4.1 H Est GFR ( Amer) 17 Est GFR (Non-Af Amer) 14 POC Glucose (mg/dL) Random Glucose 169 H Lactic Acid 4.0 H* Calcium 7.8 L Phosphorus 5.5 H Magnesium 2.0 % Saturation Ferritin Total Bilirubin 8.0 H AST 648 H D ALT 365 H D Alkaline Phosphatase 194 H Total Protein 4.3 L Albumin 1.7 L D Globulin 2.6 Albumin/Globulin Ratio 0.7 L Arterial Blood Potassium Random Gentamicin Random Vancomycin Mycoplasma pneumon IgM 08/15/17 08/15/17 08/15/17 08:23 10:05 10:05 WBC RBC Hgb Hct MCV MCH MCHC RDW Plt Count MPV Neut % (Auto) Lymph % (Auto) [place] % (Auto) Eos % (Auto) Baso % (Auto) Neut # (Auto) Lymph # (Auto) [place] # (Auto) Eos # (Auto) Baso # (Auto) Neutrophils % (Manual) Band Neutrophils % Lymphocytes % (Manual) Monocytes % (Manual) Metamyelocytes % Myelocytes % Nucleated RBC % Platelet Estimate Puncture Site pCO2 pO2 HCO3 ABG pH ABG Total CO2 ABG O2 Saturation ABG Base Excess [place] Test ABG Potassium A-a O2 Difference Respiratory Index Sodium Chloride Glucose Lactate Vent Mode Mechanical Rate FiO2 PEEP Crit Value Called To Crit Value Called By Crit Value Read Back Blood Gas Notified Time Potassium Carbon Dioxide Anion Gap BUN Creatinine Est GFR ( Amer) Est GFR (Non-Af Amer) POC Glucose (mg/dL) Random Glucose Lactic Acid Calcium Phosphorus Magnesium % Saturation 66 H Ferritin > 12669.0 Total Bilirubin AST ALT Alkaline Phosphatase Total Protein Albumin Globulin Albumin/Globulin Ratio Arterial Blood Potassium Random Gentamicin 2.2 Random Vancomycin 11.41 Mycoplasma pneumon IgM 08/15/17 11:43 WBC RBC Hgb Hct MCV MCH MCHC RDW Plt Count MPV Neut % (Auto) Lymph % (Auto) [place] % (Auto) Eos % (Auto) Baso % (Auto) Neut # (Auto) Lymph # (Auto) [place] # (Auto) Eos # (Auto) Baso # (Auto) Neutrophils % (Manual) Band Neutrophils % Lymphocytes % (Manual) Monocytes % (Manual) Metamyelocytes % Myelocytes % Nucleated RBC % Platelet Estimate Puncture Site pCO2 pO2 HCO3 ABG pH ABG Total CO2 ABG O2 Saturation ABG Base Excess [place] Test ABG Potassium A-a O2 Difference Respiratory Index Sodium Chloride Glucose Lactate Vent Mode Mechanical Rate FiO2 PEEP Crit Value Called To Crit Value Called By Crit Value Read Back Blood Gas Notified Time Potassium Carbon Dioxide Anion Gap BUN Creatinine Est GFR ( Amer) Est GFR (Non-Af Amer) POC Glucose (mg/dL) 117 H Random Glucose Lactic Acid Calcium Phosphorus Magnesium % Saturation Ferritin Total Bilirubin AST ALT Alkaline Phosphatase Total Protein Albumin Globulin Albumin/Globulin Ratio Arterial Blood Potassium Random Gentamicin Random Vancomycin Mycoplasma pneumon IgM Fingerstick Blood Sugar Results: 117 Assessment/Plan - Assessment and Plan (Free Text) Assessment: Patient is a 76 year old male with past medical history of ESRD on HD, CAD s/p CABG, Ischemic cardiomyopathy on Life Vest, Afib not on AC 2/2 history of GI bleed, Diabetes Mellitus, COPD presented to the Hospital for shortness of breath and weakness. Found to be hypotensive s/p permacath placement. Neurology: -Intubated, on fentanyl drip -History of prostate CA with metastasis -Palliative care on consult to establish goals of care Cardiology: -Patient with ischemic cardiomyopathy on life vest -Last echo 06/2017 showed LVEF 30% -Patient is Well known to Dr Potts -S/P Code blue with ROSC, now intubated -Patient with hypotension, on Levophed drip, vasopressin -Continue Midodrine 5mg TID -History of atrial fibrillation, not on anticoagulation 2/2 GI bleed -On Cardizem and Toprol XL at home, will hold these medications at this time -Plan to change femoral line to IJ, consent obtained Respiratory: -Intubated, on Fentanyl -Atrovent Q6H -Solu-cortef 100mg IV Q8H -CXR 08/13: Biapical pleural thickening with upper lobe granulomatous changes. Mild to moderate venous congestion. Pathcy confluent increased markings at the left lung base with trace left pleural effusion. Tortuous aorta. Mild cardiomegaly -CXR 08/11: Mod. venous congestion. Small left pleural effusion. Bibasilar airspace opacities. Biapical pleural thickening with upper lobe granulomatous changes -Patient on sodium bicarb 650mg PO Q6H -Mycoplasma negative -F/U repeat sputum culture GI: -Tube feeds: Continue Nepro -Protonix 40mg IVP -AST/ALT improving, likely 2/2 shock liver -Will continue to monitor at this time Renal: -S/P right permacath placement (08/11/17), AV fistula is malfunctioning -Dr Chiu on consult for declot, will hold off as patient is unstable at this time -Hemodialysis schedule M,W,F -Sodium bicarb 1,300mg Q6H -Nephro on consult, help appreciated Endocrine: -History of Diabetes Type 2 on insulin at home -Serum glucose on admission 31, Hypoglycemic -Accuchecks q6H -Hypoglycemia protocol Infectious Disease: -Sepsis, source unknown at this time -S/P Code sepsis -Antibiotics: Merrem 500mg Q12H, Doxycycline 100mg IV Q12H, Vancomycin 500mg MWF -Blood cultures showing no growth, sputum culture growing yeast -F/u repeat sputum culture GI/DVT ppx: -Protonix 40mg IV daily, SCDs -DVT ppx containdicated, hx of GI bleed Plan discussed with Dr Callahan <Mookie Callahan - Last Filed: 08/16/17 09:42> CCU Subjective - Physician Review Critical Care Time Spent (in minutes): 32 CCU Objective - Vital Signs / Intake & Output Vital Signs (Last 4 hours): Vital Signs Temp Pulse Resp BP 08/16/17 09:00 85 24 08/16/17 08:55 81 20 165/80 H 08/16/17 08:30 81 24 08/16/17 08:24 83 18 114/51 L 08/16/17 08:00 99 F 79 24 08/16/17 07:54 87 19 126/51 L 08/16/17 07:30 87 25 H 08/16/17 07:24 92 H 16 127/52 L 08/16/17 07:15 85 22 117/52 L 08/16/17 07:00 93 H 16 121/53 L 08/16/17 06:46 79 16 142/46 L 08/16/17 06:32 86 20 124/48 L 08/16/17 06:15 97 H 13 96/69 L 08/16/17 06:01 82 16 117/51 L 08/16/17 05:46 88 17 114/37 L Intake and Output (Last 8hrs): Intake & Output 08/15/17 08/16/17 08/16/17 22:59 06:59 14:59 Intake Total 1107.5 862.26 484.4 Balance 1107.5 862.26 484.4 Weight 146 lb 2.664 oz Intake: IV 154 211.16 250 Intake, IV Amount 478.5 141.1 54.4 Right Distal Port 300 Internal Jugular Right Proximal Port 19.2 13.0 4.9 Internal Jugular Rt Proximal Port IJ "B" 71.3 Rt Proximal Port Internal 88 128.1 49.5 Jugular "A" Oral 30 Tube Feeding 475 480 180 Other: # Bowel Movements 1 1 1 - Medications Active Medications: Active Medications Generic Name Dose Route Start Last Admin Trade Name Freq PRN Reason Stop Dose Admin Artificial Tears 0 gm 08/16/17 00:00 08/16/17 07:44 Lacri-Lube OU 3.5 gm Q4 CORINA Administration Ascorbic Acid 1,000 mg 08/13/17 10:00 08/16/17 02:18 Vitamin C 500 Mg Tab PO 1,000 mg Q8H CORINA Administration Dextrose 0 ml 08/11/17 17:18 08/12/17 09:45 Dextrose 50% Inj IV 50 ml STAT PRN Administration Hypoglycemia Protocol Protocol Hydrocortisone Sodium Succinate 100 mg 08/13/17 03:30 08/16/17 02:48 Solu-Cortef IV 100 mg Q8H CORINA Administration Doxycycline Hyclate 100 mg/ 100 mls @ 100 mls/hr 08/12/17 20:00 08/16/17 08: 00 Sodium Chloride IVPB 100 mls/hr Q12H CORINA Administration Protocol Vancomycin HCl 500 mg/ Sodium 100 mls @ 100 mls/hr 08/13/17 17:00 08/15/17 21 :30 Chloride IVPB 100 mls/hr MWF CORINA Administration Protocol Vasopressin 40 units/ Sodium 42 mls @ 2.52 mls/hr 08/14/17 13:15 08/16/17 04: 15 Chloride IV 0.03 units/min .[id number] CORINA 1.89 mls/hr Protocol Titration 0.04 UNITS/MIN Sodium Bicarbonate 150 meq/ 1,150 mls @ 100 mls/hr 08/16/17 06:15 08/16/17 08 :30 Dextrose IV 100 mls/hr .[id number] CORINA Administration Fentanyl Citrate 2,500 mcg/ 250 mls @ 16.57 mls/hr 08/16/17 07:30 08/16/17 07 :41 Sodium Chloride IV Not Given .[id number] CORINA Protocol 2.5 MCG/KG/HR Meropenem 500 mg/ Sodium 100 mls @ 100 mls/hr 08/16/17 09:00 Chloride IVPB Q24H CORINA Protocol Insulin Aspart 0 unit 08/12/17 19:30 08/16/17 05:56 Novolog SC 1 unit Q6 CORINA Administration Protocol Ipratropium [place] 0.5 mg 08/12/17 19:45 08/16/17 07:11 Atrovent IH 0.5 mg RQ6 CORINA Administration Midodrine 5 mg 08/14/17 10:00 08/15/17 17:31 Proamatine PO 5 mg TID CORINA Administration Pantoprazole Sodium 40 mg 08/12/17 10:00 08/15/17 10:12 Protonix Inj IVP 40 mg DAILY CORINA Administration Sodium Bicarbonate 1,300 mg 08/16/17 12:00 Sodium Bicarbonate Tab PO Q6 CORINA - Patient Studies Lab Studies: Microbiology Studies 08/11/17 19:00 Blood Culture - Preliminary Blood-Venous NO GROWTH AFTER 4 DAYS 08/12/17 19:59 Gram Stain - Final Trachasp Sputum Culture - Final Yeast Species Lab Studies 08/16/17 08/16/17 08/16/17 Range/Units 06:41 06:41 05:55 WBC 16.4 H (4.8-10.8) K/uL RBC 2.39 L (4.40-5.90) Mil/uL Hgb 7.1 L (12.0-18.0) g/dL Hct 24.8 L (35.0-51.0) % MCV 103.5 H D (80.0-94.0) fL MCH 29.7 (27.0-31.0) pg MCHC 28.7 L (33.0-37.0) g/dL RDW 20.2 H (11.5-14.5) % Plt Count 19 L* (130-400) K/uL MPV 9.9 (7.2-11.7) fL Neut % (Auto) 88.3 H (50.0-75.0) % Lymph % (Auto) 7.4 L (20.0-40.0) % [place] % (Auto) 1.8 (0.0-10.0) % Eos % (Auto) 1.8 (0.0-4.0) % Baso % (Auto) 0.7 (0.0-2.0) % Neut # (Auto) 14.5 H (1.8-7.0) K/uL Lymph # (Auto) 1.2 (1.0-4.3) K/uL [place] # (Auto) 0.3 (0.0-0.8) K/uL Eos # (Auto) 0.3 (0.0-0.7) K/uL Baso # (Auto) 0.1 (0.0-0.2) K/uL Neutrophils % (Manual) 68 (50-75) % Band Neutrophils % 15 H* (0-2) % Lymphocytes % (Manual) 4 L (20-40) % Reactive Lymphs % 4 H (0-0) % Monocytes % (Manual) 1 (0-10) % Metamyelocytes % 5 H (0-0) % Myelocytes % 3 H (0-0) % Nucleated RBC % 37 H (0-0) % Toxic Granulation Platelet Estimate Markedly decreased L (NORMAL) Giant Platelets Present Polychromasia Slight Hypochromasia (manual) Slight Poikilocytosis (manual Slight Anisocytosis (manual) Moderate Macrocytosis (manual) Slight Dorie Cells Slight Schistocytes Slight Puncture Site Rb pCO2 22 L (35-45) mm/Hg pO2 145 H (80-100) mm/Hg HCO3 7.7 L* (21-28) mmol/L ABG pH 7.07 L* (7.35-7.45) ABG Total CO2 7.1 L (22-28) mmol/L ABG O2 Saturation (95-98) % ABG Base Excess -22.1 L (-2.0-3.0) mmol/L ABG Hemoglobin < 3.0 L (11.7-17.4) g/dL [place] Test Na ABG Potassium (3.6-5.2) mmol/L A-a O2 Difference 541.0 mm/Hg Respiratory Index 3.7 Glucose (75-110) mg/dl Lactate (0.7-2.1) mmol/L Vent Mode A/c pc Mechanical Rate 22 FiO2 100.0 % PEEP 8 Crit Value Called To Felton ayers/rn Crit Value Called By Oral ryan/rt Crit Value Read Back Y Blood Gas Notified Time 605 Sodium 145 (132-148) mmol/L Potassium 4.0 (3.6-5.2) mmol/L Chloride 102 (98-107) mmol/L Carbon Dioxide 13 L (22-30) mmol/L Anion Gap 35 H (10-20) BUN 37 H (9-20) mg/dL Creatinine 3.5 H (0.8-1.5) mg/dL Est GFR ( Amer) 21 Est GFR (Non-Af Amer) 17 POC Glucose (mg/dL) (65-110) mg/dL Random Glucose 121 H (75-110) mg/dL Calcium 8.9 (8.6-10.4) mg/dl Phosphorus 8.7 H (2.5-4.5) mg/dL Magnesium 2.5 H (1.6-2.3) mg/dL % Saturation (20-55) Ferritin ng/mL Total Bilirubin 8.5 H (0.2-1.3) mg/dL AST 533 H (17-59) U/L ALT 259 H (21-72) U/L Alkaline Phosphatase 144 H (38-126) U/L Total Protein 3.9 L (6.3-8.3) g/dL Albumin 1.5 L (3.5-5.0) g/dL Globulin 2.4 (2.2-3.9) gm/dL Albumin/Globulin Ratio 0.6 L (1.0-2.1) Arterial Blood Potassium (3.6-5.2) mmol/L Random Gentamicin ug/mL Random Vancomycin ug/mL Mycoplasma pneumon IgG (<=0.90) Mycoplasma pneumon IgM (<770) U/mL 08/16/17 08/16/17 08/15/17 Range/Units 05:07 05:02 22:52 WBC (4.8-10.8) K/uL RBC (4.40-5.90) Mil/uL Hgb (12.0-18.0) g/dL Hct (35.0-51.0) % MCV (80.0-94.0) fL MCH (27.0-31.0) pg MCHC (33.0-37.0) g/dL RDW (11.5-14.5) % Plt Count (130-400) K/uL MPV (7.2-11.7) fL Neut % (Auto) (50.0-75.0) % Lymph % (Auto) (20.0-40.0) % [place] % (Auto) (0.0-10.0) % Eos % (Auto) (0.0-4.0) % Baso % (Auto) (0.0-2.0) % Neut # (Auto) (1.8-7.0) K/uL Lymph # (Auto) (1.0-4.3) K/uL [place] # (Auto) (0.0-0.8) K/uL Eos # (Auto) (0.0-0.7) K/uL Baso # (Auto) (0.0-0.2) K/uL Neutrophils % (Manual) (50-75) % Band Neutrophils % (0-2) % Lymphocytes % (Manual) (20-40) % Reactive Lymphs % (0-0) % Monocytes % (Manual) (0-10) % Metamyelocytes % (0-0) % Myelocytes % (0-0) % Nucleated RBC % (0-0) % Toxic Granulation Platelet Estimate (NORMAL) Giant Platelets Polychromasia Hypochromasia (manual) Poikilocytosis (manual Anisocytosis (manual) Macrocytosis (manual) Dorie Cells Schistocytes Puncture Site L fem pCO2 25 L (35-45) mm/Hg pO2 46 L (80-100) mm/Hg HCO3 1.9 L* (21-28) mmol/L ABG pH 6.88 L* (7.35-7.45) ABG Total CO2 5.5 L (22-28) mmol/L ABG O2 Saturation 67.8 L (95-98) % ABG Base Excess -27.7 L (-2.0-3.0) mmol/L ABG Hemoglobin (11.7-17.4) g/dL [place] Test Na ABG Potassium 2.3 L* (3.6-5.2) mmol/L A-a O2 Difference 636.0 mm/Hg Respiratory Index 13.8 Glucose 74 L (75-110) mg/dl Lactate 9.7 H* (0.7-2.1) mmol/L Vent Mode A/c pc Mechanical Rate 22 FiO2 100.0 % PEEP 8 Crit Value Called To Felton corbettlynco multicultural internship Crit Value Called By Jamia cole rt Crit Value Read Back Y Blood Gas Notified Time 340 Sodium 153.0 H 140 (132-148) mmol/L Potassium 3.5 L (3.6-5.2) mmol/L Chloride 122.0 H 102 (98-107) mmol/L Carbon Dioxide 16 L (22-30) mmol/L Anion Gap 25 H (10-20) BUN 34 H (9-20) mg/dL Creatinine 2.9 H (0.8-1.5) mg/dL Est GFR ( Amer) 26 Est GFR (Non-Af Amer) 21 POC Glucose (mg/dL) 169 H (65-110) mg/dL Random Glucose 182 H (75-110) mg/dL Calcium 8.2 L (8.6-10.4) mg/dl Phosphorus 5.2 H (2.5-4.5) mg/dL Magnesium 1.9 (1.6-2.3) mg/dL % Saturation (20-55) Ferritin ng/mL Total Bilirubin 10.4 H (0.2-1.3) mg/dL AST 471 H D (17-59) U/L ALT 310 H (21-72) U/L Alkaline Phosphatase 174 H (38-126) U/L Total Protein 4.4 L (6.3-8.3) g/dL Albumin 1.8 L (3.5-5.0) g/dL Globulin 2.6 (2.2-3.9) gm/dL Albumin/Globulin Ratio 0.7 L (1.0-2.1) Arterial Blood Potassium 2.3 L* (3.6-5.2) mmol/L Random Gentamicin ug/mL Random Vancomycin ug/mL Mycoplasma pneumon IgG (<=0.90) Mycoplasma pneumon IgM (<770) U/mL 08/15/17 08/15/17 08/15/17 Range/Units 22:52 17:26 11:43 WBC 12.7 H (4.8-10.8) K/uL RBC 2.64 L (4.40-5.90) Mil/uL Hgb 8.1 L (12.0-18.0) g/dL Hct 25.3 L (35.0-51.0) % MCV 95.7 H D (80.0-94.0) fL MCH 30.5 (27.0-31.0) pg MCHC 31.9 L (33.0-37.0) g/dL RDW 19.8 H (11.5-14.5) % Plt Count 23 L* D (130-400) K/uL MPV 11.4 (7.2-11.7) fL Neut % (Auto) 91.1 H (50.0-75.0) % Lymph % (Auto) 3.7 L (20.0-40.0) % [place] % (Auto) 2.8 (0.0-10.0) % Eos % (Auto) 2.0 (0.0-4.0) % Baso % (Auto) 0.4 (0.0-2.0) % Neut # (Auto) 11.6 H (1.8-7.0) K/uL Lymph # (Auto) 0.5 L (1.0-4.3) K/uL [place] # (Auto) 0.4 (0.0-0.8) K/uL Eos # (Auto) 0.3 (0.0-0.7) K/uL Baso # (Auto) 0.0 (0.0-0.2) K/uL Neutrophils % (Manual) 57 (50-75) % Band Neutrophils % 31 H* (0-2) % Lymphocytes % (Manual) 7 L (20-40) % Reactive Lymphs % (0-0) % Monocytes % (Manual) 2 (0-10) % Metamyelocytes % 2 H (0-0) % Myelocytes % 1 H (0-0) % Nucleated RBC % (0-0) % Toxic Granulation Present Platelet Estimate Markedly decreased L (NORMAL) Giant Platelets Polychromasia Hypochromasia (manual) Poikilocytosis (manual Slight Anisocytosis (manual) Slight Macrocytosis (manual) Dorie Cells Schistocytes Puncture Site pCO2 (35-45) mm/Hg pO2 (80-100) mm/Hg HCO3 (21-28) mmol/L ABG pH (7.35-7.45) ABG Total CO2 (22-28) mmol/L ABG O2 Saturation (95-98) % ABG Base Excess (-2.0-3.0) mmol/L ABG Hemoglobin (11.7-17.4) g/dL [place] Test ABG Potassium (3.6-5.2) mmol/L A-a O2 Difference mm/Hg Respiratory Index Glucose (75-110) mg/dl Lactate (0.7-2.1) mmol/L Vent Mode Mechanical Rate FiO2 % PEEP Crit Value Called To Crit Value Called By Crit Value Read Back Blood Gas Notified Time Sodium (132-148) mmol/L Potassium (3.6-5.2) mmol/L Chloride (98-107) mmol/L Carbon Dioxide (22-30) mmol/L Anion Gap (10-20) BUN (9-20) mg/dL Creatinine (0.8-1.5) mg/dL Est GFR ( Amer) Est GFR (Non-Af Amer) POC Glucose (mg/dL) 132 H 117 H (65-110) mg/dL Random Glucose (75-110) mg/dL Calcium (8.6-10.4) mg/dl Phosphorus (2.5-4.5) mg/dL Magnesium (1.6-2.3) mg/dL % Saturation (20-55) Ferritin ng/mL Total Bilirubin (0.2-1.3) mg/dL AST (17-59) U/L ALT (21-72) U/L Alkaline Phosphatase (38-126) U/L Total Protein (6.3-8.3) g/dL Albumin (3.5-5.0) g/dL Globulin (2.2-3.9) gm/dL Albumin/Globulin Ratio (1.0-2.1) Arterial Blood Potassium (3.6-5.2) mmol/L Random Gentamicin ug/mL Random Vancomycin ug/mL Mycoplasma pneumon IgG (<=0.90) Mycoplasma pneumon IgM (<770) U/mL 08/15/17 08/15/17 08/15/17 Range/Units 10:05 10:05 08:23 WBC (4.8-10.8) K/uL RBC (4.40-5.90) Mil/uL Hgb (12.0-18.0) g/dL Hct (35.0-51.0) % MCV (80.0-94.0) fL MCH (27.0-31.0) pg MCHC (33.0-37.0) g/dL RDW (11.5-14.5) % Plt Count (130-400) K/uL MPV (7.2-11.7) fL Neut % (Auto) (50.0-75.0) % Lymph % (Auto) (20.0-40.0) % [place] % (Auto) (0.0-10.0) % Eos % (Auto) (0.0-4.0) % Baso % (Auto) (0.0-2.0) % Neut # (Auto) (1.8-7.0) K/uL Lymph # (Auto) (1.0-4.3) K/uL [place] # (Auto) (0.0-0.8) K/uL Eos # (Auto) (0.0-0.7) K/uL Baso # (Auto) (0.0-0.2) K/uL Neutrophils % (Manual) (50-75) % Band Neutrophils % (0-2) % Lymphocytes % (Manual) (20-40) % Reactive Lymphs % (0-0) % Monocytes % (Manual) (0-10) % Metamyelocytes % (0-0) % Myelocytes % (0-0) % Nucleated RBC % (0-0) % Toxic Granulation Platelet Estimate (NORMAL) Giant Platelets Polychromasia Hypochromasia (manual) Poikilocytosis (manual Anisocytosis (manual) Macrocytosis (manual) [place] Cells Schistocytes Puncture Site pCO2 (35-45) mm/Hg pO2 (80-100) mm/Hg HCO3 (21-28) mmol/L ABG pH (7.35-7.45) ABG Total CO2 (22-28) mmol/L ABG O2 Saturation (95-98) % ABG Base Excess (-2.0-3.0) mmol/L ABG Hemoglobin (11.7-17.4) g/dL [place] Test ABG Potassium (3.6-5.2) mmol/L A-a O2 Difference mm/Hg Respiratory Index Glucose (75-110) mg/dl Lactate (0.7-2.1) mmol/L Vent Mode Mechanical Rate FiO2 % PEEP Crit Value Called To Crit Value Called By Crit Value Read Back Blood Gas Notified Time Sodium (132-148) mmol/L Potassium (3.6-5.2) mmol/L Chloride (98-107) mmol/L Carbon Dioxide (22-30) mmol/L Anion Gap (10-20) BUN (9-20) mg/dL Creatinine (0.8-1.5) mg/dL Est GFR ( Amer) Est GFR (Non-Af Amer) POC Glucose (mg/dL) (65-110) mg/dL Random Glucose (75-110) mg/dL Calcium (8.6-10.4) mg/dl Phosphorus (2.5-4.5) mg/dL Magnesium (1.6-2.3) mg/dL % Saturation 66 H (20-55) Ferritin 94062.0 ng/mL Total Bilirubin (0.2-1.3) mg/dL AST (17-59) U/L ALT (21-72) U/L Alkaline Phosphatase (38-126) U/L Total Protein (6.3-8.3) g/dL Albumin (3.5-5.0) g/dL Globulin (2.2-3.9) gm/dL Albumin/Globulin Ratio (1.0-2.1) Arterial Blood Potassium (3.6-5.2) mmol/L Random Gentamicin 2.2 ug/mL Random Vancomycin 11.41 ug/mL Mycoplasma pneumon IgG (<=0.90) Mycoplasma pneumon IgM (<770) U/mL 08/12/17 Range/Units 15:32 WBC (4.8-10.8) K/uL RBC (4.40-5.90) Mil/uL Hgb (12.0-18.0) g/dL Hct (35.0-51.0) % MCV (80.0-94.0) fL MCH (27.0-31.0) pg MCHC (33.0-37.0) g/dL RDW (11.5-14.5) % Plt Count (130-400) K/uL MPV (7.2-11.7) fL Neut % (Auto) (50.0-75.0) % Lymph % (Auto) (20.0-40.0) % [place] % (Auto) (0.0-10.0) % Eos % (Auto) (0.0-4.0) % Baso % (Auto) (0.0-2.0) % Neut # (Auto) (1.8-7.0) K/uL Lymph # (Auto) (1.0-4.3) K/uL [place] # (Auto) (0.0-0.8) K/uL Eos # (Auto) (0.0-0.7) K/uL Baso # (Auto) (0.0-0.2) K/uL Neutrophils % (Manual) (50-75) % Band Neutrophils % (0-2) % Lymphocytes % (Manual) (20-40) % Reactive Lymphs % (0-0) % Monocytes % (Manual) (0-10) % Metamyelocytes % (0-0) % Myelocytes % (0-0) % Nucleated RBC % (0-0) % Toxic Granulation Platelet Estimate (NORMAL) Giant Platelets Polychromasia Hypochromasia (manual) Poikilocytosis (manual Anisocytosis (manual) Macrocytosis (manual) [place] Cells Schistocytes Puncture Site pCO2 (35-45) mm/Hg pO2 (80-100) mm/Hg HCO3 (21-28) mmol/L ABG pH (7.35-7.45) ABG Total CO2 (22-28) mmol/L ABG O2 Saturation (95-98) % ABG Base Excess (-2.0-3.0) mmol/L ABG Hemoglobin (11.7-17.4) g/dL [place] Test ABG Potassium (3.6-5.2) mmol/L A-a O2 Difference mm/Hg Respiratory Index Glucose (75-110) mg/dl Lactate (0.7-2.1) mmol/L Vent Mode Mechanical Rate FiO2 % PEEP Crit Value Called To Crit Value Called By Crit Value Read Back Blood Gas Notified Time Sodium (132-148) mmol/L Potassium (3.6-5.2) mmol/L Chloride (98-107) mmol/L Carbon Dioxide (22-30) mmol/L Anion Gap (10-20) BUN (9-20) mg/dL Creatinine (0.8-1.5) mg/dL Est GFR ( Amer) Est GFR (Non-Af Amer) POC Glucose (mg/dL) (65-110) mg/dL Random Glucose (75-110) mg/dL Calcium (8.6-10.4) mg/dl Phosphorus (2.5-4.5) mg/dL Magnesium (1.6-2.3) mg/dL % Saturation (20-55) Ferritin ng/mL Total Bilirubin (0.2-1.3) mg/dL AST (17-59) U/L ALT (21-72) U/L Alkaline Phosphatase (38-126) U/L Total Protein (6.3-8.3) g/dL Albumin (3.5-5.0) g/dL Globulin (2.2-3.9) gm/dL Albumin/Globulin Ratio (1.0-2.1) Arterial Blood Potassium (3.6-5.2) mmol/L Random Gentamicin ug/mL Random Vancomycin ug/mL Mycoplasma pneumon IgG <=0.90 (<=0.90) Mycoplasma pneumon IgM 35 (<770) U/mL Laboratory Results - last 24 hr 08/12/17 08/15/17 08/15/17 15:32 08:23 10:05 WBC RBC Hgb Hct MCV MCH MCHC RDW Plt Count MPV Neut % (Auto) Lymph % (Auto) [place] % (Auto) Eos % (Auto) Baso % (Auto) Neut # (Auto) Lymph # (Auto) [place] # (Auto) Eos # (Auto) Baso # (Auto) Neutrophils % (Manual) Band Neutrophils % Lymphocytes % (Manual) Reactive Lymphs % Monocytes % (Manual) Metamyelocytes % Myelocytes % Nucleated RBC % Toxic Granulation Platelet Estimate Giant Platelets Polychromasia Hypochromasia (manual) Poikilocytosis (manual Anisocytosis (manual) Macrocytosis (manual) [place] Cells Schistocytes Puncture Site pCO2 pO2 HCO3 ABG pH ABG Total CO2 ABG O2 Saturation ABG Base Excess ABG Hemoglobin [place] Test ABG Potassium A-a O2 Difference Respiratory Index Glucose Lactate Vent Mode Mechanical Rate FiO2 PEEP Crit Value Called To Crit Value Called By Crit Value Read Back Blood Gas Notified Time Sodium Potassium Chloride Carbon Dioxide Anion Gap BUN Creatinine Est GFR ( Amer) Est GFR (Non-Af Amer) POC Glucose (mg/dL) Random Glucose Calcium Phosphorus Magnesium % Saturation 66 H Ferritin Total Bilirubin AST ALT Alkaline Phosphatase Total Protein Albumin Globulin Albumin/Globulin Ratio Arterial Blood Potassium Random Gentamicin 2.2 Random Vancomycin 11.41 Mycoplasma pneumon IgG <=0.90 Mycoplasma pneumon IgM 35 08/15/17 08/15/17 08/15/17 10:05 11:43 17:26 WBC RBC Hgb Hct MCV MCH MCHC RDW Plt Count MPV Neut % (Auto) Lymph % (Auto) [place] % (Auto) Eos % (Auto) Baso % (Auto) Neut # (Auto) Lymph # (Auto) [place] # (Auto) Eos # (Auto) Baso # (Auto) Neutrophils % (Manual) Band Neutrophils % Lymphocytes % (Manual) Reactive Lymphs % Monocytes % (Manual) Metamyelocytes % Myelocytes % Nucleated RBC % Toxic Granulation Platelet Estimate Giant Platelets Polychromasia Hypochromasia (manual) Poikilocytosis (manual Anisocytosis (manual) Macrocytosis (manual) [place] Cells Schistocytes Puncture Site pCO2 pO2 HCO3 ABG pH ABG Total CO2 ABG O2 Saturation ABG Base Excess ABG Hemoglobin [place] Test ABG Potassium A-a O2 Difference Respiratory Index Glucose Lactate Vent Mode Mechanical Rate FiO2 PEEP Crit Value Called To Crit Value Called By Crit Value Read Back Blood Gas Notified Time Sodium Potassium Chloride Carbon Dioxide Anion Gap BUN Creatinine Est GFR ( Amer) Est GFR (Non-Af Amer) POC Glucose (mg/dL) 117 H 132 H Random Glucose Calcium Phosphorus Magnesium % Saturation Ferritin 33026.0 Total Bilirubin AST ALT Alkaline Phosphatase Total Protein Albumin Globulin Albumin/Globulin Ratio Arterial Blood Potassium Random Gentamicin Random Vancomycin Mycoplasma pneumon IgG Mycoplasma pneumon IgM 08/15/17 08/15/17 08/16/17 22:52 22:52 05:02 WBC 12.7 H RBC 2.64 L Hgb 8.1 L Hct 25.3 L MCV 95.7 H D MCH 30.5 MCHC 31.9 L RDW 19.8 H Plt Count 23 L* D MPV 11.4 Neut % (Auto) 91.1 H Lymph % (Auto) 3.7 L [place] % (Auto) 2.8 Eos % (Auto) 2.0 Baso % (Auto) 0.4 Neut # (Auto) 11.6 H Lymph # (Auto) 0.5 L [place] # (Auto) 0.4 Eos # (Auto) 0.3 Baso # (Auto) 0.0 Neutrophils % (Manual) 57 Band Neutrophils % 31 H* Lymphocytes % (Manual) 7 L Reactive Lymphs % Monocytes % (Manual) 2 Metamyelocytes % 2 H Myelocytes % 1 H Nucleated RBC % Toxic Granulation Present Platelet Estimate Markedly decreased L Giant Platelets Polychromasia Hypochromasia (manual) Poikilocytosis (manual Slight Anisocytosis (manual) Slight Macrocytosis (manual) [place] Cells Schistocytes Puncture Site pCO2 pO2 HCO3 ABG pH ABG Total CO2 ABG O2 Saturation ABG Base Excess ABG Hemoglobin [place] Test ABG Potassium A-a O2 Difference Respiratory Index Glucose Lactate Vent Mode Mechanical Rate FiO2 PEEP Crit Value Called To Crit Value Called By Crit Value Read Back Blood Gas Notified Time Sodium 140 Potassium 3.5 L Chloride 102 Carbon Dioxide 16 L Anion Gap 25 H BUN 34 H Creatinine 2.9 H Est GFR ( Amer) 26 Est GFR (Non-Af Amer) 21 POC Glucose (mg/dL) 169 H Random Glucose 182 H Calcium 8.2 L Phosphorus 5.2 H Magnesium 1.9 % Saturation Ferritin Total Bilirubin 10.4 H AST 471 H D ALT 310 H Alkaline Phosphatase 174 H Total Protein 4.4 L Albumin 1.8 L Globulin 2.6 Albumin/Globulin Ratio 0.7 L Arterial Blood Potassium Random Gentamicin Random Vancomycin Mycoplasma pneumon IgG Mycoplasma pneumon IgM 08/16/17 08/16/17 08/16/17 05:07 05:55 06:41 WBC 16.4 H RBC 2.39 L Hgb 7.1 L Hct 24.8 L MCV 103.5 H D MCH 29.7 MCHC 28.7 L RDW 20.2 H Plt Count 19 L* MPV 9.9 Neut % (Auto) 88.3 H Lymph % (Auto) 7.4 L [place] % (Auto) 1.8 Eos % (Auto) 1.8 Baso % (Auto) 0.7 Neut # (Auto) 14.5 H Lymph # (Auto) 1.2 [place] # (Auto) 0.3 Eos # (Auto) 0.3 Baso # (Auto) 0.1 Neutrophils % (Manual) 68 Band Neutrophils % 15 H* Lymphocytes % (Manual) 4 L Reactive Lymphs % 4 H Monocytes % (Manual) 1 Metamyelocytes % 5 H Myelocytes % 3 H Nucleated RBC % 37 H Toxic Granulation Platelet Estimate Markedly decreased L Giant Platelets Present Polychromasia Slight Hypochromasia (manual) Slight Poikilocytosis (manual Slight Anisocytosis (manual) Moderate Macrocytosis (manual) Slight Dorie Cells Slight Schistocytes Slight Puncture Site L fem Rb pCO2 25 L 22 L pO2 46 L 145 H HCO3 1.9 L* 7.7 L* ABG pH 6.88 L* 7.07 L* ABG Total CO2 5.5 L 7.1 L ABG O2 Saturation 67.8 L ABG Base Excess -27.7 L -22.1 L ABG Hemoglobin < 3.0 L [place] Test Na Na ABG Potassium 2.3 L* A-a O2 Difference 636.0 541.0 Respiratory Index 13.8 3.7 Glucose 74 L Lactate 9.7 H* Vent Mode A/c pc A/c pc Mechanical Rate 22 22 FiO2 100.0 100.0 PEEP 8 8 Crit Value Called To Felton roger [employer] internship Felton ayers/rn Crit Value Called By Jamai cole rt Oral ryan/rt Crit Value Read Back Y Y Blood Gas Notified Time 340 605 Sodium 153.0 H Potassium Chloride 122.0 H Carbon Dioxide Anion Gap BUN Creatinine Est GFR ( Amer) Est GFR (Non-Af Amer) POC Glucose (mg/dL) Random Glucose Calcium Phosphorus Magnesium % Saturation Ferritin Total Bilirubin AST ALT Alkaline Phosphatase Total Protein Albumin Globulin Albumin/Globulin Ratio Arterial Blood Potassium 2.3 L* Random Gentamicin Random Vancomycin Mycoplasma pneumon IgG Mycoplasma pneumon IgM 08/16/17 06:41 WBC RBC Hgb Hct MCV MCH MCHC RDW Plt Count MPV Neut % (Auto) Lymph % (Auto) [place] % (Auto) Eos % (Auto) Baso % (Auto) Neut # (Auto) Lymph # (Auto) [place] # (Auto) Eos # (Auto) Baso # (Auto) Neutrophils % (Manual) Band Neutrophils % Lymphocytes % (Manual) Reactive Lymphs % Monocytes % (Manual) Metamyelocytes % Myelocytes % Nucleated RBC % Toxic Granulation Platelet Estimate Giant Platelets Polychromasia Hypochromasia (manual) Poikilocytosis (manual Anisocytosis (manual) Macrocytosis (manual) Dorie Cells Schistocytes Puncture Site pCO2 pO2 HCO3 ABG pH ABG Total CO2 ABG O2 Saturation ABG Base Excess ABG Hemoglobin [place] Test ABG Potassium A-a O2 Difference Respiratory Index Glucose Lactate Vent Mode Mechanical Rate FiO2 PEEP Crit Value Called To Crit Value Called By Crit Value Read Back Blood Gas Notified Time Sodium 145 Potassium 4.0 Chloride 102 Carbon Dioxide 13 L Anion Gap 35 H BUN 37 H Creatinine 3.5 H Est GFR ( Amer) 21 Est GFR (Non-Af Amer) 17 POC Glucose (mg/dL) Random Glucose 121 H Calcium 8.9 Phosphorus 8.7 H Magnesium 2.5 H % Saturation Ferritin Total Bilirubin 8.5 H AST 533 H ALT 259 H Alkaline Phosphatase 144 H Total Protein 3.9 L Albumin 1.5 L Globulin 2.4 Albumin/Globulin Ratio 0.6 L Arterial Blood Potassium Random Gentamicin Random Vancomycin Mycoplasma pneumon IgG Mycoplasma pneumon IgM Assessment/Plan - Assessment and Plan (Free Text) Assessment: PAtient seen and examined at bedside. Patient's lactic decreased, but did not resolve to normal. Above resident note reviewed and verified. Patient -titrate off pressors -continue abx as per ID -HD as per renal -continue to monitor -ARDS like with low PF ratio -PAtient remains critical cc time 35 minutes - Date & Time Date: 08/15/17 Time: 19:00
--- NOTE | 2017-08-15 17:02 | CP.PCM.PN ---
Subjective - Date & Time of Evaluation Date of Evaluation: 08/15/17 Time of Evaluation: 08:50 - Subjective Subjective: PATIENT SEEN STILL IN ICU, INTUBATED PATIENT DOES NOT RESPOND TO VOICE CALL OR PAINFUL STIMULI UPDATED BY STAFF DISCUSSION WITH DAUGHTER OF CONDITION STILL DEPENDENT ON PRESSOR AND RESPIRATOR Objective - Vital Signs/Intake and Output Vital Signs (last 24 hours): Temp Pulse Resp BP Pulse Ox 97.5 F L 109 H 16 109/80 96 08/15/17 12:40 08/15/17 15:00 08/15/17 15:00 08/15/17 14:57 08/15/17 15:00 Intake and Output: 08/15/17 08/15/17 06:59 18:59 Intake Total 1712.9 1206.8 Balance 1712.9 1206.8 - Medications Medications: Current Medications Ascorbic Acid (Vitamin C 500 Mg Tab) 1,000 mg PO Q8H [facility] Last Admin: 08/15/17 10:12 Dose: 1,000 mg Dextrose (Dextrose 50% Inj) 0 ml IV STAT PRN; Protocol PRN Reason: Hypoglycemia Protocol Last Admin: 08/12/17 09:45 Dose: 50 ml Hydrocortisone Sodium Succinate (Solu-Cortef) 100 mg IV Q8H [facility] Last Admin: 08/15/17 12:06 Dose: 100 mg Meropenem 500 mg/ Sodium (Chloride) 100 mls @ 100 mls/hr IVPB Q12H [facility] PRN Reason: Protocol Last Admin: 08/15/17 10:11 Dose: 100 mls/hr Norepinephrine Bitartrate 16 (mg/ Sodium Chloride) 1,016 mls @ 15.24 mls/hr IV .Q24H PRN; Protocol; 4 MCG/MIN PRN Reason: TITRATE PER MD ORDER Last Titration: 08/15/17 15:00 Dose: 7 mcg/min, 26.67 mls/hr Doxycycline Hyclate 100 mg/ (Sodium Chloride) 100 mls @ 100 mls/hr IVPB Q12H [facility] PRN Reason: Protocol Last Admin: 08/15/17 07:53 Dose: 100 mls/hr Fentanyl Citrate 2,500 mcg/ (Sodium Chloride) 250 mls @ 11 mls/hr IV .[id number] [facility]; 2 MCG/KG/HR PRN Reason: Protocol Last Titration: 08/15/17 05:10 Dose: 2 mcg/kg/hr, 11 mls/hr Vancomycin HCl 500 mg/ Sodium (Chloride) 100 mls @ 100 mls/hr IVPB [facility] PRN Reason: Protocol Last Admin: 08/13/17 16:30 Dose: 100 mls/hr Vasopressin 40 units/ Sodium (Chloride) 42 mls @ 2.52 mls/hr IV .[id number] [facility]; 0.04 UNITS/MIN PRN Reason: Protocol Last Admin: 08/15/17 06:12 Dose: Not Given Insulin Aspart (Novolog) 0 unit SC Q6 [facility] PRN Reason: Protocol Last Admin: 08/15/17 12:05 Dose: Not Given Ipratropium [place] (Atrovent) 0.5 mg IH RQ6 [facility] Last Admin: 08/15/17 14:03 Dose: 0.5 mg Midodrine (Proamatine) 5 mg PO TID [facility] Last Admin: 08/15/17 13:28 Dose: 5 mg Pantoprazole Sodium (Protonix Inj) 40 mg IVP DAILY [facility] Last Admin: 08/15/17 10:12 Dose: 40 mg Sodium Bicarbonate (Sodium Bicarbonate Tab) 1,300 mg PO Q6 [facility] Last Admin: 08/15/17 12:06 Dose: 1,300 mg - Labs Labs: 08/15/17 05:34 08/15/17 05:34 PT 17.1 SECONDS (9.7-12.2) H 08/12/17 05:07 INR 1.5 08/12/17 05:07 APTT 42 SECONDS (21-34) H 08/12/17 05:07 - Constitutional Appears: Other (INTUBATED UNRESPONSIVE TO ALL STIMULI ) - Head Exam Head Exam: ATRAUMATIC, NORMOCEPHALIC - Eye Exam Eye Exam: Periorbital swelling (MILD) - Respiratory Exam Respiratory Exam: NORMAL BREATHING PATTERN (ON RESPIRATOR) - Cardiovascular Exam Cardiovascular Exam: Irregular Rhythm - GI/Abdominal Exam GI & Abdominal Exam: Hypoactive Bowel Sounds. absent: Distended - Extremities Exam Extremities Exam: absent: Pedal Edema - Neurological Exam Neurological Exam: Altered Assessment and Plan - Assessment and Plan (Free Text) Assessment: PATIENT WITH MULTIPLE MEDICAL PROBLEMS ESRD HD CAD AFIB METASTATIC CANCER HYPOTENSION RESPIRATORY FAILURE SEPSIS CURRENTLY INTUBATED- ON SEPSIS TREATMENT ON PRESSOR WITH POOR PROGNOSIS DISCUSSED WITH FAMILY
--- NOTE | 2017-08-15 19:50 | CP.PCM.PN ---
Subjective - Date & Time of Evaluation Date of Evaluation: 08/15/17 Time of Evaluation: 19:50 - Subjective Subjective: the patient seen and examined in the intensive care. S/P HD TODAY afebrile,tachy no acute events overnight On ventilatory support On vasopressin drip Tolerating feeding Poorly responsive labs noted. wbc 17.3, H/H 8.3 pLATELETS 46K DECREASING Serum lactate-4.0 LFTS TOTAL BILI 8.0 TRANSAMINASES IMPROVING. SPUTUM TRACHEAL ASPIRATE-YEAST ? ORAL JADON BLOOD CULTURES -VE GROWTH TO DATE. RANDOM vANCO 11.41-OKAY RANDOM GENT 2.2 .(PT OFF GENT ) CHEST X-RAY 08/15/17. DIFFUSE INTERSTITIAL PATTERN ? PULMONARY EDEMA NO FOCAL CONSOLIDATION Objective - Vital Signs/Intake and Output Vital Signs (last 24 hours): Temp Pulse Resp BP Pulse Ox 98.7 F 94 H 11 L 131/65 87 L 08/15/17 16:00 08/15/17 19:00 08/15/17 19:00 08/15/17 19:00 08/15/17 19:00 Intake and Output: 08/15/17 08/16/17 18:59 06:59 Intake Total 1576.0 81.4 Balance 1576.0 81.4 - Medications Medications: Current Medications Ascorbic Acid (Vitamin C 500 Mg Tab) 1,000 mg PO Q8H [facility] Last Admin: 08/15/17 17:33 Dose: 1,000 mg Dextrose (Dextrose 50% Inj) 0 ml IV STAT PRN; Protocol PRN Reason: Hypoglycemia Protocol Last Admin: 08/12/17 09:45 Dose: 50 ml Hydrocortisone Sodium Succinate (Solu-Cortef) 100 mg IV Q8H [facility] Last Admin: 08/15/17 19:33 Dose: 100 mg Meropenem 500 mg/ Sodium (Chloride) 100 mls @ 100 mls/hr IVPB Q12H [facility] PRN Reason: Protocol Last Admin: 08/15/17 10:11 Dose: 100 mls/hr Doxycycline Hyclate 100 mg/ (Sodium Chloride) 100 mls @ 100 mls/hr IVPB Q12H [facility] PRN Reason: Protocol Last Admin: 08/15/17 19:33 Dose: 100 mls/hr Fentanyl Citrate 2,500 mcg/ (Sodium Chloride) 250 mls @ 11 mls/hr IV .[id number] [facility]; 2 MCG/KG/HR PRN Reason: Protocol Last Admin: 08/15/17 18:58 Dose: Not Given Vancomycin HCl 500 mg/ Sodium (Chloride) 100 mls @ 100 mls/hr IVPB MWF [facility] PRN Reason: Protocol Last Admin: 08/13/17 16:30 Dose: 100 mls/hr Vasopressin 40 units/ Sodium (Chloride) 42 mls @ 2.52 mls/hr IV .[id number] [facility]; 0.04 UNITS/MIN PRN Reason: Protocol Last Admin: 08/15/17 19:00 Dose: 0.04 units/min, 2.52 mls/hr Insulin Aspart (Novolog) 0 unit SC Q6 [facility] PRN Reason: Protocol Last Admin: 08/15/17 17:31 Dose: Not Given Ipratropium [place] (Atrovent) 0.5 mg IH RQ6 [facility] Last Admin: 08/15/17 19:38 Dose: 0.5 mg Midodrine (Proamatine) 5 mg PO TID [facility] Last Admin: 08/15/17 17:31 Dose: 5 mg Pantoprazole Sodium (Protonix Inj) 40 mg IVP DAILY [facility] Last Admin: 08/15/17 10:12 Dose: 40 mg Sodium Bicarbonate (Sodium Bicarbonate Tab) 1,300 mg PO Q6 [facility] Last Admin: 08/15/17 17:31 Dose: 1,300 mg - Labs Labs: 08/15/17 05:34 08/15/17 05:34 PT 17.1 SECONDS (9.7-12.2) H 08/12/17 05:07 INR 1.5 08/12/17 05:07 APTT 42 SECONDS (21-34) H 08/12/17 05:07 - Constitutional Appears: No Acute Distress - Head Exam Head Exam: NORMAL INSPECTION - Eye Exam Eye Exam: Scleral icterus - ENT Exam Additional comments: INTUBATED ORALLY - Neck Exam Neck Exam: Normal Inspection - Respiratory Exam Respiratory Exam: Rales (BASILAR) - Cardiovascular Exam Cardiovascular Exam: Tachycardia, REGULAR RHYTHM, +S1, +S2 - GI/Abdominal Exam GI & Abdominal Exam: Soft, Normal Bowel Sounds - Extremities Exam Extremities Exam: Pedal Edema. absent: Calf Tenderness - Neurological Exam Neurological Exam: Altered - Skin Skin Exam: Warm Assessment and Plan (1) Septic shock Status: Acute (2) Respiratory failure, acute Status: Acute (3) Pneumonia Status: Acute (4) CHF (congestive heart failure) Status: Acute (5) Abnormal liver enzymes Status: Acute (6) Colon cancer metastasized to liver Status: Acute (7) Diabetes mellitus Status: Chronic (8) ESRD (end stage renal disease) on dialysis Status: Chronic (9) HTN (hypertension) Status: Chronic (10) Ischemic cardiomyopathy Status: Acute - Assessment and Plan (Free Text) Plan: CONTINUE iv MERREM 500 MG EVERY 12 HOURLY.08/12/17 CONTINUE IV DOXYCYCLINE 100MG IV [id number] 08/12/17 PATIENT GOT 1 DOSE OF VANCOMYCIN 1 G ON 08/12/17. CONTINUE IV VANCOMYCIN 500MG POST HD MWF X 6 DOSE. F/U CULTURES TO ADJUST IV ABX. PT ON VASOPRESSORS /steroids PER [employer] ASSESSMENT SPECIALIST/CONSULTANTS. WATCH FOR THROMBOCYTOPENIA. PROGNOSIS GUARDED. CASE DISCUSSED WITH STAFF ATTENDING.
[2017-08-15 22:55] LABS: EOS # 0.3 K/uL (0.0-0.7); HEMOGLOBIN 8.1 g/dL (12.0-18.0); LYMPH # 0.5 K/uL (1.0-4.3); MEAN CORPUSCULAR HEMOGLOBIN 30.5 pg (27.0-31.0); MEAN CORPUSCULAR HGB CONC 31.9 g/dL (33.0-37.0); MONO # 0.4 K/uL (0.0-0.8); MONO % 2.8 % (0.0-10.0); WHITE BLOOD COUNT 12.7 K/uL (4.8-10.8)
[2017-08-15 22:59] LABS: BASO % 0.4 % (0.0-2.0); LYMPH % 3.7 % (20.0-40.0); MEAN CELL VOLUME 95.7 fL (80.0-94.0); MEAN PLATELET VOLUME 11.4 fL (7.2-11.7); NEUT # 11.6 K/uL (1.8-7.0); NEUT % 91.1 % (50.0-75.0); NRBC % 21.9 % (0.0-2.0); RBC 2.64 Mil/uL (4.40-5.90); RED CELL DISTRIBUTION WIDTH 19.8 % (11.5-14.5)
[2017-08-15 23:03] LABS: PLATELET COUNT 23 K/uL (130-400)
[2017-08-15 23:08] LABS: ALB/GLOB RATIO 0.7 (1.0-2.1); ALBUMIN 1.8 g/dL (3.5-5.0); CALCIUM 8.2 mg/dl (8.6-10.4)
[2017-08-15] MEDS ORDERED: Potassium Chloride 20 mEq/15 ml LIQ UD PO STA (23:21)
[2017-08-15 23:30] LABS: BANDS 31 % (0-2); LYMPHOCYTE 7 % (20-40); METAMYELOCYTE 2 % (0-0); MONOCYTE 2 % (0-10); MYELOCYTE 1 % (0-0); NEUTROPHIL 57 % (50-75); PLATELET ESTIMATE MARKEDLY DECREASED (NORMAL); TOTAL CELLS COUNTED 100
[2017-08-15 23:31] LABS: ANISOCYTOSIS SLIGHT; POIKILOCYTOSIS SLIGHT; TOXIC GRANULATION PRESENT
[2017-08-16] MEDS: White Petrolatum/Mineral Oil Ophth Oint(3.5 gm) OU SCH ×4 (00:52→08:00)
[2017-08-16] MEDS: Ipratropium 0.02% Inhal Soln (0.5 mg/2.5 ml) UD IH SCH ×2 (02:03→07:11)
[2017-08-16 05:41] LABS: ARTERIAL BLOOD GAS HCO3 1.9 mmol/L (21-28); ARTERIAL BLOOD GAS O2 SAT 67.8 % (95-98); ARTERIAL BLOOD GAS PCO2 25 mm/Hg (35-45); ARTERIAL BLOOD GAS PH 6.88 (7.35-7.45); ARTERIAL BLOOD GAS PO2 46 mm/Hg (80-100); ARTERIAL BLOOD GAS TCO2 5.5 mmol/L (22-28)
[2017-08-16] MEDS: (Novolog) Insulin Aspart, Recombinant 100 u/ml 10 ml vial SC SCH ×2 (05:56→11:58)
[2017-08-16 06:00] LABS: ARTERIAL BLOOD GAS HCO3 7.7 mmol/L (21-28); ARTERIAL BLOOD GAS HEMOGLOBIN < 3.0 g/dL (11.7-17.4); ARTERIAL BLOOD GAS PCO2 22 mm/Hg (35-45); ARTERIAL BLOOD GAS PH 7.07 (7.35-7.45); ARTERIAL BLOOD GAS PO2 145 mm/Hg (80-100); ARTERIAL BLOOD GAS TCO2 7.1 mmol/L (22-28)
[2017-08-16] MEDS ORDERED: Sodium Bicarbonate (8.4%) 50 Meq Syringe ONE ×3 (06:14→12:14)
[2017-08-16] MEDS ORDERED: Sodium Bicarbonate (8.4%) 50 Meq Syringe IVP ONE ×2 (06:14→08:15)
[2017-08-16 06:47] LABS: BASO # 0.1 K/uL (0.0-0.2); BASO % 0.7 % (0.0-2.0); EOS # 0.3 K/uL (0.0-0.7); EOS % 1.8 % (0.0-4.0); HEMOGLOBIN 7.1 g/dL (12.0-18.0); LYMPH # 1.2 K/uL (1.0-4.3); LYMPH % 7.4 % (20.0-40.0); MEAN CORPUSCULAR HEMOGLOBIN 29.7 pg (27.0-31.0); MEAN CORPUSCULAR HGB CONC 28.7 g/dL (33.0-37.0); MEAN PLATELET VOLUME 9.9 fL (7.2-11.7); MONO # 0.3 K/uL (0.0-0.8); MONO % 1.8 % (0.0-10.0); NEUT # 14.5 K/uL (1.8-7.0); NEUT % 88.3 % (50.0-75.0); NRBC % 20.2 % (0.0-2.0); RBC 2.39 Mil/uL (4.40-5.90); RED CELL DISTRIBUTION WIDTH 20.2 % (11.5-14.5); WHITE BLOOD COUNT 16.4 K/uL (4.8-10.8)
[2017-08-16 06:53] LABS: MEAN CELL VOLUME 103.5 fL (80.0-94.0)
[2017-08-16 06:54] LABS: PLATELET COUNT 19 K/uL (130-400)
[2017-08-16 06:59] LABS: ALB/GLOB RATIO 0.6 (1.0-2.1); ALBUMIN 1.5 g/dL (3.5-5.0); CALCIUM 8.9 mg/dl (8.6-10.4)
[2017-08-16] MEDS: Sodium Bicarbonate 8.4% 150 MEQ in Dextrose 5% In Water 1,000 ML IV SCH ×2 (07:14→08:30)
[2017-08-16 08:28] LABS: BANDS 15 % (0-2); LYMPHOCYTE 4 % (20-40); METAMYELOCYTE 5 % (0-0); MONOCYTE 1 % (0-10); MYELOCYTE 3 % (0-0); NEUTROPHIL 68 % (50-75); NUCLEATED RED BLOOD CELL 37 % (0-0); PLATELET ESTIMATE MARKEDLY DECREASED (NORMAL); REACTIVE LYMPHOCYTES 4 % (0-0); TOTAL CELLS COUNTED 100
[2017-08-16 08:29] LABS: ANISOCYTOSIS MODERATE; POIKILOCYTOSIS SLIGHT
[2017-08-16 08:30] LABS: BURR CELLS SLIGHT; HYPOCHROMIC SLIGHT; POLYCHROMIC SLIGHT
[2017-08-16 08:31] LABS: GIANT PLATELETS PRESENT; SCHISTOCYTES SLIGHT
--- NOTE | 2017-08-16 08:33 | RAD ---
Chest x-ray single frontal view History: Intubated. Comparison: X-ray dated 08/15/2017 Findings: Curvilinear lucency along the left heart border, nonspecific. Clinical correlation. Low lying endotracheal tube approximately 6 millimeters from the pamela. Retraction approximately 1 centimeter may be helpful. NG tube extending into the stomach. Left central venous catheter tip extending to the proximal right SVC. Right central venous catheter tip extending to the cavoatrial junction. Bilateral axillary stents in place. Moderate to severe venous congestion with prominent bibasilar airspace opacities and small bilateral pleural effusions. Cardiomegaly. Degenerative changes in the spine and shoulders. Impression: Curvilinear lucency along the left heart border, nonspecific. Clinical correlation. Low lying endotracheal tube approximately 6 millimeters from the pamela. Retraction approximately 1 centimeter may be helpful. NG tube extending into the stomach. Left central venous catheter tip extending to the proximal right SVC. Right central venous catheter tip extending to the cavoatrial junction. Bilateral axillary stents in place. Moderate to severe venous congestion with prominent bibasilar airspace opacities and small bilateral pleural effusions. Cardiomegaly. Degenerative changes in the spine and shoulders.
--- NOTE | 2017-08-16 08:53 | CP.PCM.PN ---
Subjective - Date & Time of Evaluation Date of Evaluation: 08/16/17 Time of Evaluation: 08:50 - Subjective Subjective: patient seen respirator dependent update fro staff- poor condtion still septic with pancytopenia discussed with last ironer Dr martin concern for heme consult, but will hold - due to reason of condition due to sepsis plan for FFP transfusion discussion with daughter regarding poor condition Objective - Vital Signs/Intake and Output Vital Signs (last 24 hours): Temp Pulse Resp BP Pulse Ox 99 F 81 24 114/51 L 77 L 08/16/17 08:00 08/16/17 08:30 08/16/17 08:30 08/16/17 08:24 08/15/17 22:02 Intake and Output: 08/16/17 08/16/17 06:59 18:59 Intake Total 1519.86 406.0 Balance 1519.86 406.0 - Medications Medications: Current Medications Artificial Tears (Lacri-Lube) 0 gm OU Q4 [facility] Last Admin: 08/16/17 07:44 Dose: 3.5 gm Ascorbic Acid (Vitamin C 500 Mg Tab) 1,000 mg PO Q8H [facility] Last Admin: 08/16/17 02:18 Dose: 1,000 mg Dextrose (Dextrose 50% Inj) 0 ml IV STAT PRN; Protocol PRN Reason: Hypoglycemia Protocol Last Admin: 08/12/17 09:45 Dose: 50 ml Hydrocortisone Sodium Succinate (Solu-Cortef) 100 mg IV Q8H [facility] Last Admin: 08/16/17 02:48 Dose: 100 mg Doxycycline Hyclate 100 mg/ (Sodium Chloride) 100 mls @ 100 mls/hr IVPB Q12H [facility] PRN Reason: Protocol Last Admin: 08/16/17 08:00 Dose: 100 mls/hr Vancomycin HCl 500 mg/ Sodium (Chloride) 100 mls @ 100 mls/hr IVPB MWF [facility] PRN Reason: Protocol Last Admin: 08/15/17 21:30 Dose: 100 mls/hr Vasopressin 40 units/ Sodium (Chloride) 42 mls @ 2.52 mls/hr IV .[id number] [facility]; 0.04 UNITS/MIN PRN Reason: Protocol Last Titration: 08/16/17 04:15 Dose: 0.03 units/min, 1.89 mls/hr Sodium Bicarbonate 150 meq/ (Dextrose) 1,150 mls @ 100 mls/hr IV .[id number] [facility] Last Admin: 08/16/17 07:14 Dose: 100 mls/hr Fentanyl Citrate 2,500 mcg/ (Sodium Chloride) 250 mls @ 16.57 mls/hr IV .[id number] [facility]; 2.5 MCG/KG/HR PRN Reason: Protocol Last Admin: 08/16/17 07:41 Dose: Not Given Meropenem 500 mg/ Sodium (Chloride) 100 mls @ 100 mls/hr IVPB Q24H [facility] PRN Reason: Protocol Insulin Aspart (Novolog) 0 unit SC Q6 [facility] PRN Reason: Protocol Last Admin: 08/16/17 05:56 Dose: 1 unit Ipratropium [place] (Atrovent) 0.5 mg IH RQ6 [facility] Last Admin: 08/16/17 07:11 Dose: 0.5 mg Midodrine (Proamatine) 5 mg PO TID [facility] Last Admin: 08/15/17 17:31 Dose: 5 mg Pantoprazole Sodium (Protonix Inj) 40 mg IVP DAILY [facility] Last Admin: 08/15/17 10:12 Dose: 40 mg Sodium Bicarbonate (Sodium Bicarbonate Tab) 1,300 mg PO Q6 [facility] - Labs Labs: 08/16/17 06:41 08/16/17 06:41 PT 17.1 SECONDS (9.7-12.2) H 08/12/17 05:07 INR 1.5 08/12/17 05:07 APTT 42 SECONDS (21-34) H 08/12/17 05:07 - Constitutional Appears: Other (patient is respirator dependent, no response to any stimuli,, chest xary looking bad, pancytopenia worsening , in sepsis , on treatments , worsening condition as updated by staff ) - Respiratory Exam Respiratory Exam: Decreased Breath Sounds - Cardiovascular Exam Cardiovascular Exam: Irregular Rhythm - GI/Abdominal Exam GI & Abdominal Exam: absent: Distended - Neurological Exam Neurological Exam: Altered Assessment and Plan - Assessment and Plan (Free Text) Assessment: Patient with multiple medical problems- with Sepsis, ESRD but unable to remove fluid due to hypotension , atrial fibrillation CAD with elevated troponins, pancytopenia , worsening condition- discussed with family
[2017-08-16] MEDS ORDERED: Meropenem 500 MG in Sodium Chloride 0.9% 100 ML IVPB SCH (09:00)
--- NOTE | 2017-08-16 09:09 | CP.PCM.PN ---
Subjective - Date & Time of Evaluation Date of Evaluation: 08/16/17 Time of Evaluation: 09:06 - Subjective Subjective: remains on vent, not responsive- off sedation s/p dialysis 08/15- UF 1000ml on small dose IV vaso very acidemic- on bicarb drip for FFP and prbcs transfusion today; plats very low ferritin very high- acute phase reactant overall prognosis grim Objective - Vital Signs/Intake and Output Vital Signs (last 24 hours): Temp Pulse Resp BP Pulse Ox 99 F 81 24 114/51 L 77 L 08/16/17 08:00 08/16/17 08:30 08/16/17 08:30 08/16/17 08:24 08/15/17 22:02 Intake and Output: 08/16/17 08/16/17 06:59 18:59 Intake Total 1519.86 484.4 Balance 1519.86 484.4 - Medications Medications: Current Medications Artificial Tears (Lacri-Lube) 0 gm OU Q4 [facility] Last Admin: 08/16/17 07:44 Dose: 3.5 gm Ascorbic Acid (Vitamin C 500 Mg Tab) 1,000 mg PO Q8H [facility] Last Admin: 08/16/17 02:18 Dose: 1,000 mg Dextrose (Dextrose 50% Inj) 0 ml IV STAT PRN; Protocol PRN Reason: Hypoglycemia Protocol Last Admin: 08/12/17 09:45 Dose: 50 ml Hydrocortisone Sodium Succinate (Solu-Cortef) 100 mg IV Q8H [facility] Last Admin: 08/16/17 02:48 Dose: 100 mg Doxycycline Hyclate 100 mg/ (Sodium Chloride) 100 mls @ 100 mls/hr IVPB Q12H [facility] PRN Reason: Protocol Last Admin: 08/16/17 08:00 Dose: 100 mls/hr Vancomycin HCl 500 mg/ Sodium (Chloride) 100 mls @ 100 mls/hr IVPB MWF [facility] PRN Reason: Protocol Last Admin: 08/15/17 21:30 Dose: 100 mls/hr Vasopressin 40 units/ Sodium (Chloride) 42 mls @ 2.52 mls/hr IV .[id number] [facility]; 0.04 UNITS/MIN PRN Reason: Protocol Last Titration: 08/16/17 04:15 Dose: 0.03 units/min, 1.89 mls/hr Sodium Bicarbonate 150 meq/ (Dextrose) 1,150 mls @ 100 mls/hr IV .[id number] [facility] Last Admin: 08/16/17 07:14 Dose: 100 mls/hr Fentanyl Citrate 2,500 mcg/ (Sodium Chloride) 250 mls @ 16.57 mls/hr IV .Q15H6M [facility]; 2.5 MCG/KG/HR PRN Reason: Protocol Last Admin: 08/16/17 07:41 Dose: Not Given Meropenem 500 mg/ Sodium (Chloride) 100 mls @ 100 mls/hr IVPB Q24H [facility] PRN Reason: Protocol Insulin Aspart (Novolog) 0 unit SC Q6 [facility] PRN Reason: Protocol Last Admin: 08/16/17 05:56 Dose: 1 unit Ipratropium [place] (Atrovent) 0.5 mg IH RQ6 [facility] Last Admin: 08/16/17 07:11 Dose: 0.5 mg Midodrine (Proamatine) 5 mg PO TID [facility] Last Admin: 08/15/17 17:31 Dose: 5 mg Pantoprazole Sodium (Protonix Inj) 40 mg IVP DAILY [facility] Last Admin: 08/15/17 10:12 Dose: 40 mg Sodium Bicarbonate (Sodium Bicarbonate Tab) 1,300 mg PO Q6 [facility] - Labs Labs: 08/16/17 06:41 08/16/17 06:41 PT 17.1 SECONDS (9.7-12.2) H 08/12/17 05:07 INR 1.5 08/12/17 05:07 APTT 42 SECONDS (21-34) H 08/12/17 05:07 - Constitutional Appears: In Acute Distress, Chronically Ill - Head Exam Head Exam: ATRAUMATIC, NORMAL INSPECTION - Neck Exam Neck Exam: Normal Inspection. absent: Tenderness - Respiratory Exam Respiratory Exam: Rhonchi, Respiratory Distress - Cardiovascular Exam Cardiovascular Exam: Irregular Rhythm, +S1 - GI/Abdominal Exam GI & Abdominal Exam: Soft. absent: Tenderness - Extremities Exam Extremities Exam: Normal Inspection. 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
[2017-08-16] MEDS ORDERED: Calcium Gluconate 4.65 mEq/10 ml Inj ONE (12:08)
[2017-08-16] MEDS ORDERED: Vasopressin 20 Units/ml Inj ONE ×2 (12:08→14:00)
[2017-08-16] MEDS ORDERED: WATER IV ONE (12:28)
[2017-08-16] MEDS ORDERED: EPINEPHRINE IV ONE (12:28)
[2017-08-16] MEDS ORDERED: DEXTROSE 5% IV ONE (12:28)
[2017-08-16 12:33] LABS: ARTERIAL BLOOD GAS HCO3 8.5 mmol/L (21-28); ARTERIAL BLOOD GAS O2 SAT 70.6 % (95-98); ARTERIAL BLOOD GAS PCO2 66 mm/Hg (35-45); ARTERIAL BLOOD GAS PH 6.93 (7.35-7.45); ARTERIAL BLOOD GAS PO2 43 mm/Hg (80-100); ARTERIAL BLOOD GAS TCO2 15.9 mmol/L (22-28)
[2017-08-16] MEDS ORDERED: DOPamine 400 mg/5 ml Inj IV ONE (14:00)
--- NOTE | 2017-08-16 16:56 | CP.PCM.PRO ---
Pronouncement of Note - Clinical Findings Physical Exam: No Response Verbal/Painful Stimuli, Absent Peripheral Pulses{ Carotid & Femoral}, Absent Heart & Breath Sounds, No Pupillary Light Reflex, No Corneal Reflex, Pupils Fixed & Dilated, Absence of Vital Signs - Pronouncement Time Time of Pronouncement of : 13:02 - Notifications Pronouncement Notifications: Family Notified, Atending Notified Machine Wiper Notified: Yes - Autopsy Autopsy Requested: No - [place] [id number]
[2017-08-16 17:58] VITALS: TEMP 97.7
[2017-08-16 18:00] VITALS: BP 0/0; PULSE 0; RESP 0; O2SAT 0
== END 2017-08-16 13:02 | DRG 871 ==
LOC: C.ER 07:01 → C.9E 09:03 → C.6T 10:51 → C.9I 17:15 → OBSVTOIN 08-13 07:22
PROVIDERS: ADMIT Internal Medicine; ATTEND Internal Medicine
PROC: 02HV33Z Insertion of Infusion Device into Superior Vena Cava, Percutaneous Approach (ICD-10-PCS; 2017-08-11)
PROC: 0BH17EZ Insertion of Endotracheal Airway into Trachea, Via Natural or Artificial Opening (ICD-10-PCS; principal; 2017-08-12)
PROC: 5A1945Z Respiratory Ventilation, 24-96 Consecutive Hours (ICD-10-PCS; 2017-08-12)
PROC: 06HY33Z Insertion of Infusion Device into Lower Vein, Percutaneous Approach (ICD-10-PCS; 2017-08-12)
PROC: 05HY33Z Insertion of Infusion Device into Upper Vein, Percutaneous Approach (ICD-10-PCS; 2017-08-12)
PROC: 03HB33Z Insertion of Infusion Device into Right Radial Artery, Percutaneous Approach (ICD-10-PCS; 2017-08-12)
PROC: 5A1D70Z Performance of Urinary Filtration, Intermittent, Less than 6 Hours Per Day (ICD-10-PCS; 2017-08-12)
DX: A41.9 Sepsis, unspecified organism (principal); N18.6 End stage renal disease; R65.21 Severe sepsis with septic shock; J96.00 Acute respiratory failure, unspecified whether with hypoxia or hypercapnia; K72.00 Acute and subacute hepatic failure without coma; C18.9 Malignant neoplasm of colon, unspecified; C78.7 Secondary malignant neoplasm of liver and intrahepatic bile duct; C79.51 Secondary malignant neoplasm of bone; D61.818 Other pancytopenia; E87.2 Acidosis; I13.2 Hypertensive heart and chronic kidney disease with heart failure and with stage 5 chronic kidney disease, or end stage renal disease; Z99.11 Dependence on respirator [ventilator] status; T82.868A Thrombosis due to vascular prosthetic devices, implants and grafts, initial encounter; J80 Acute respiratory distress syndrome; J44.1 Chronic obstructive pulmonary disease with (acute) exacerbation; I47.1 Supraventricular tachycardia; C61 Malignant neoplasm of prostate; E11.21 Type 2 diabetes mellitus with diabetic nephropathy; E11.22 Type 2 diabetes mellitus with diabetic chronic kidney disease; E78.00 Pure hypercholesterolemia, unspecified; E78.5 Hyperlipidemia, unspecified; I25.10 Atherosclerotic heart disease of native coronary artery without angina pectoris; I25.5 Ischemic cardiomyopathy; I46.9 Cardiac arrest, cause unspecified; Z99.2 Dependence on renal dialysis; Z95.1 Presence of aortocoronary bypass graft; Z87.891 Personal history of nicotine dependence; Z51.5 Encounter for palliative care; Z79.4 Long term (current) use of insulin; Y71.2 Prosthetic and other implants, materials and accessory cardiovascular devices associated with adverse incidents; Y83.2 Surgical operation with anastomosis, bypass or graft as the cause of abnormal reaction of the patient, or of later complication, without mention of misadventure at the time of the procedure; I50.9 Heart failure, unspecified; I48.0 Paroxysmal atrial fibrillation